=== PATIENT | female | born 1985 | race Caucasian/White ===

== ENCOUNTER 2022-04-04 11:11 | Emergency (ER) | payer BC, SELFPAY ==
[2022-04-04 11:13] VITALS: BP 129/80; PULSE 90; RESP 16; TEMP 36.3; O2SAT 100; BMI 27.4
--- NOTE | 2022-04-04 11:16 | VDLE_ITS ---
Reason For Study: Pain RIGHT GSV is normal. CFV is compressible, spontaneous, phasic, competent and demonstrates normal augmentation. FV is compressible, spontaneous, phasic, competent and demonstrates normal augmentation. POP V is compressible, spontaneous, phasic, competent and demonstrates normal augmentation. T/P Trunk is compressible. PTV is compressible. RT PerV is compressible. Procedure This is a venous duplex using B-mode, color flow and spectral Doppler. Exam performed portable in ED. A preliminary report was called and/or faxed to Modesta MESSER. VL/Venous Duplex US, Unilateral Interpretation Summary There is no evidence of right lower extremity deep vein thrombosis. Right great saphenous vein appears patent and compressible segmentally. Ordering Physician: Binh Porter Performed By: Shilpi Elizabeth RVT
--- NOTE | 2022-04-04 11:22 | ED.VIS.LOWEX ---
HPI History of Present Illness HPI Narrative: Presents with pain in her right calf that began this morning. Patient states she woke up and noticed pain in her calf. Patient states it has been constant throughout the day today. Patient describes her pain as burning. Patient states it is worse with walking and better with rest. Patient denies any paresthesias or weakness. Patient denies any trauma or injury. Patient has a history of varicose veins and is concerned over possible blood clot. Chief Complaint: Other, Pain/Inj Informant: patient Onset/Context/Timing Onset: Today Context: Sudden Onset Timing: Continuous Quality of Pain: Burning Location: Right calf Worsened by: Walking Relieved by: Rest Associated Symptoms Associated Symptoms: Negative for Parasthesia, Weakness or Loss of Funtion PFSH PFS Medical History (Updated 04/04/22 @ 12:[address] Binh Porter DO) History of prolactinoma Hypothyroidism Medical History no medical history Allergy/AdvReac Type Severity Reaction Status Date / Time No Known Allergies Allergy Verified 04/04/22 11:15 Family History no significant family his Surgical History (Updated 04/04/22 @ 11:[address] Binh Porter DO) H/O section Surgical History no surgical history Social History Smoking Status: Unknown if ever smoked ROS ROS ED Constitutional Constitutional ED: Denies chills or fever(s) Eyes Eyes: Denies blurry vision or change in vision ENT ENT ED: Denies rhinorrhea or sore throat Cardiovascular Cardiovascular: Denies chest pain or palpitations Respiratory/Chest Respiratory/Chest: Denies cough or dyspnea Gastrointestinal Gastrointestinal: Denies nausea or vomiting Genitourinary Genitourinary ED: Denies dysuria or hematuria Musculoskeletal Musculoskeletal: Reports neck pain; Denies back pain Integumentary Reports rash; Denies abscess Neurologic Neurologic: Denies headache(s) or weakness Allergic/Immunologic Allergic/Immunologic ED: Denies mouth swelling or urticaria EXAM Physical Exam Const Vital Signs: 04/04/22 11:13 Temperature 97.4 F L Temperature Source Temporal Pulse Rate 90 Respiratory Rate 16 Blood Pressure 129/80 H Blood Pressure Mean 96 Pulse Ox 100 Oxygen Delivery Method Room Air Positive well nourished and well developed General Appearance ED: well developed and NAD HEENT Reports moist mucous membranes Neck full ROM and supple Extremity Extremity Narrative: There is mild tenderness over the right lower calf. There is some mild edema. There is no ecchymosis. There are some varicose veins noted anteriorly. There is no tenderness over this area. Pedal pulses are equal bilaterally. Sensation was intact to light touch in all digits. Capillary refill was less than 2 seconds in all digits. There is full range of motion. There is no laxity appreciated in the ankle or knee. Neuro oriented x3, CN's II-XII intact bilaterally, moves all extremities and no sensory deficits noted Sensorium / Orientation: alert Motor Exam: strength 5/5 throughout MDM MDM MDM Narrative Medical decision making narrative: Venous duplex of the right lower extremity was obtained. There is no evidence of DVT. Patient was advised of her findings. Patient was instructed to ice and elevate the right lower leg. Patient was instructed to take Tylenol or ibuprofen as needed for pain. I do not feel she needs any prescription analgesics at this point. Patient understands and is agreeable with the plan. All questions were answered. Discharge Plan Triage Chief Complaint: Other, Pain/Inj Other Complaint: Lower Extremity Injury ED Provider: Binh Porter Dx/Rx/DC Orders Clinical Impression: Strain of right calf muscle Instructions: ED Muscle Strain, Extremity Disposition Disposition: Home, Self Care
--- NOTE | 2022-04-04 11:46 | ED.RN ---
PER CARE ATTENDANT. NEGATIVE FOR BLOOD CLOT
== END 2022-04-04 12:18 | disposition home or self-care (01) ==
PROVIDERS: Emergency Provider Emergency Medicine; Visit Provider Emergency Medicine
DX: S86.111A Strain of other muscle(s) and tendon(s) of posterior muscle group at lower leg level, right leg, initial encounter (principal); M79.604 Pain in right leg; X58.XXXA Exposure to other specified factors, initial encounter
CPT/HCPCS: 93971; 99282

== ENCOUNTER → 2022-07-27 | Outpatient (CLI) | payer BC, SELFPAY ==
[2022-07-27 14:16] LABS: CRP, High Sensitivity Cardiac 0.68 mg/L; Rheumatoid Factor < 10.0 IU/mL (<15); Thyroid Stim Hormone (TSH) 1.59 uIU/mL (0.358-3.74)
[2022-07-27 14:17] LABS: Erythrocyte Sedimentation Rate 7 mm/hr (0-30)
[2022-07-29 13:07] LABS: ANTINUCLEAR ANTIBODIES DIRECT Negative (Negative)
== END | disposition home or self-care (01) ==
PROVIDERS: PCP Physician Assistant; Referring Provider Physician Assistant; Visit Provider Physician Assistant
DX: E03.8 Other specified hypothyroidism (principal); M25.50 Pain in unspecified joint
CPT/HCPCS: 36415; 84443; 85652; 86038; 86141; 86225; 86235; 86431

== ENCOUNTER 2022-08-26 17:00 | Outpatient (RCR) | payer BC, SELFPAY ==
--- NOTE | 2022-07-22 18:44 | HP.PTEVAL_ITS ---
Patient's Visit Information DALLAS FARIAS is a 37 year old F referred to Physical Therapy by LLOYD Ramon with a diagnosis of R PF syndrome. Date of Evaluation: 07/22/22 Physical Therapist: Binh Damon, DPT, OCS, CSCS - Visit Plan Frequency: 1-2x /Week Duration: 4-6 Weeks Plan: 1-2x/week for 4-6 weeks, start weekly to progress HEP(quad and ITB stretch and activitiy modificaiton given today). Next session give SLR abd, ext, flexion and clamshells and bridge banded if tolerates. then WB ex progression and floor trasnfer. - Subjective My joints have always popped and cracked. 6 weeks ago felt a loud pop in R knee and then was sensitive afterwards. Got some grinding that day. R knee is uncomfortable all the time. Stairs really make her worse if she overdoes it. Up is more painful then down. pain is 6/10 Comfortable sitting most of time. 1/2 out of 10 with walking. No numbness or tingly. Not weak or giving out, but has difficulty getting out of bath.Sleep is not a problem. 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 Hobbies: Is a mom of 5 yo and playing on floor is hard to get up. Basic ADLs are normal. Hard to bend R knee to put in pants. no regular ex. - Pain R knee Pain Intensity (Out of 10): 0 - Objective Walks normal without antalgia today. steps reciprocal without rail but R knee pain and cracking up with R. Trasnfers I. Squats with some R knee tightness.foot biomechanics appear normal as does posture, able to toe and heel walk without a problem. ITB and quads tight B. AROM ankles and knees WFL but R knee cracks and pops consistently with extension. Hip AROM WFL. weakness obvious in B hip abd and ext 3+ and quad 4- R and 4 L, HS and hip flexors 4/5 but opposite hip IR with resisted hip flexion. patella are jeremi but move well, almost hyupermobile. tender laterally R patella. reflexes 2/3 patella and achilles. Sensation wNL to gross light touch. - disco test, - bounce home, - varus and valgus, - ant drawer, + R patellar grind, not L. - Balance/Special Test Scores Lower Extremity Functional Score: 71 - Goals Goal 1:: I appropriate stretch adn strength HEP for PFS improviement Goal Time Frame: 4-6 Weeks Goal 2:: Up steps without pain Goal Time Frame: 4-6 Weeks Goal 3:: Pt feel 75% better in overall pain and function of knee Goal Time Frame: 4-6 Weeks Goal 4:: able to get off floor with ease on R LE Goal Time Frame: 4-6 Weeks Goal 5:: LEFFS 76 Goal Time Frame: 4-6 Weeks - Rehabilitation Potential Physical Therapy Diagnosis: R PF syndrome, itb and quad tightness and hip weakness Rehabilitation Potential: Fair - Anticipated Interventions Patient/Client Instruction: Educate patient on: Condition, Plan of Care For the Purpose of:: To decrease pain, To increase ROM, To improve nutrient delivery to tissue, To improve muscle performance and motor function, To increase tolerance to activity/condition/position Therapeutic Exercise to Include: Strength training, Flexibilty training For the Purpose of:: To decrease pain, To increase ROM, To improve nutrient delivery to tissue, To improve muscle performance and motor function Manual Therapy Techniques to Include: Mobilization, Soft tissue mobilization For the Purpose of:: To decrease pain, To increase ROM Thank you for the opportunity to evaluate your patient. For Medicare and Medicare HMO plans, please review the plan of care and approve it. It will need to be FAXED BACK to us at [phone] for Medicare purposes. For Medicare only, by signing this I certify the plan of care. Please let me know if there are questions or concerns regarding this plan of car lopez. Physician Signature: Date:
--- NOTE | 2022-08-26 17:22 | HP.PTDCSUM ---
It has been my pleasure to treat DALLAS FARIAS referred by LLOYD Ramon, with the diagnosis of R PF syndrome for a total of 4 visit(s). Discharge Date: 08/26/22 Please see the following information for a summary of their discharge status. Subjective: The sound in my jknee is getting fainter adn fainter. Did low volume of exercises for last week adn a half without issues. had to go slow due to back locking up. Picking R leg up to get dressed can still feel weak. No pain. No f/u with doctor. R knee Pain Intensity (Out of 10): 0 % Improvement: 98 Objective/Function: Walking normal without antalgia. steps reciprocal without rail easily and no pain. Transfer off floor with slight weakness at bottom of movement but no pain. Overall much better. Goal 1:: I appropriate stretch adn strength HEP for PFS improviement Goal Progress: Goal Met Goal 2:: Up steps without pain Goal Progress: Goal Met Goal 3:: Pt feel 75% better in overall pain and function of knee Goal Progress: Goal Met Goal 4:: able to get off floor with ease on R LE Goal Progress: Goal Met Goal 5:: LEFFS 76 Goal Progress: Progressing Plan: d/c to HEP Discharge Comments: Pt to continue via HEP and notify doctor if pain returns If there are questions or concerns regarding this patient's physical therapy, please feel free to call me at [phone]. Thank you for the referral of this patient. Sincerely, Binh Damon, DPT, OCS, CSCS Balance/Gait/Functional tests - Balance/Special Test Scores Lower Extremity Functional Score: 77
== END 2022-08-26 19:00 | disposition home or self-care (01) ==
LOC: PT 17:00
PROVIDERS: Referring Provider Physician Assistant; Visit Provider Physician Assistant
DX: M22.2X1 Patellofemoral disorders, right knee (principal)
CPT/HCPCS: 97110; 97161; 97164

== ENCOUNTER → 2022-10-20 | Outpatient (CLI) | payer OTHER, SELFPAY ==
--- NOTE | 2022-10-20 07:34 | ECHOD_ITS ---
Reason For Study: PVC's Procedure This was a 2D Doppler, Color Flow transthoracic echocardiogram. Exam performed in department. Left Ventricle Normal LV size. Left ventricular systolic function is normal. The estimated ejection fraction is 60 %. No regional wall motion abnormalities noted. Right Ventricle Normal RV size. Normal systolic function. Atria Normal left atrium. Normal right atrium. Mitral Valve Normal mitral valve. Tricuspid Valve Normal tricuspid valve. Mild (1+) tricuspid valve insufficiency. Pulmonary artery systolic pressure is 20 mmHg. Aortic Valve Normal aortic valve. Trisinus/trileaflet aortic valve. Pulmonic Valve Normal pulmonic valve. Great Vessels Normal aortic root. The pulmonary artery is normal size. Normal inferior vena cava. Pericardium/Pleural No pericardial effusion. MMode/2D Measurements & Calculations LVIDd: 4.3 cm IVSd: 0.82 cm Ao root diam: 2.4 cm LVIDs: 2.9 cm LVPWd: 0.79 cm RVDd: 3.4 cm FS: 31.7 % LAV(MOD-bp): 36.8 ml LVAd ap4: 28.4 cm2 LVAd ap2: 30.1 cm2 LAV(MOD-bp) Indexed: 19.6 ml/m2 LVLd ap4: 8.2 cm LVLd ap2: 8.6 cm LAV(MOD-sp2): 40.9 ml EDV(MOD-sp4): 81.3 ml EDV(MOD-sp2): 89.4 ml LAV(MOD-sp4): 31.2 ml EDV(sp4-el): 82.9 ml EDV(sp2-el): 89.7 ml LVAs ap4: 15.3 cm2 LVAs ap2: 16.7 cm2 LVLs ap4: 6.6 cm LVLs ap2: 7.3 cm ESV(MOD-sp4): 30.0 ml ESV(MOD-sp2): 33.3 ml ESV(sp4-el): 30.5 ml ESV(sp2-el): 32.7 ml EF(MOD-sp4): 63.1 % EF(MOD-sp2): 62.7 % EF(sp4-el): 63.3 % SV(MOD-sp4): 51.3 ml SV(MOD-sp2): 56.0 ml SV(sp4-el): 52.4 ml LA dimension(2D): 3.5 cm LA A4 area: 14.0 cm2 RA A4 area: 14.7 cm2 TAPSE: 2.3 cm Time Measurements MV dec time: 0.17 sec Doppler Measurements & Calculations MV E max sam: 78.9 cm/sec Lat Peak E' Sam: 14.2 cm/sec Med Peak E' Sam: 11.7 cm/sec MV A max sam: 47.8 cm/sec E/E' lat: 5.5 E/E' med: 6.7 MV E/A: 1.7 MV dec slope: 469.7 cm/sec2 Ao V2 max: 106.2 cm/sec LV V1 max: 87.0 cm/sec Ao max P.5 mmHg LV V1 max P.0 mmHg Ao V2 mean: 75.6 cm/sec LV V1 mean P.7 mmHg Ao mean P.6 mmHg LV V1 mean: 60.9 cm/sec Ao V2 VTI: 25.6 cm LV V1 VTI: 19.5 cm AV (velocity ratio): 0.76 PA V2 max: 71.9 cm/sec TR max sam: 205.7 cm/sec TR max P.9 mmHg ECHO/Echo Complete Interpretation Summary Normal LV size. Left ventricular systolic function is normal. The estimated ejection fraction is 60 %. Pulmonary artery systolic pressure is 20 mmHg. The global longitudinal strain is normal. The global longitudinal strain = -18. 7 % (normal). Ordering Physician: Josesito Kohler Referring Physician: Josesito Kohler Performed By: Ruth Miner RDCS
== END | disposition home or self-care (01) ==
LOC: CVS 07:32
PROVIDERS: PCP Physician Assistant; Referring Provider Internal Medicine Cardiovascular Disease; Visit Provider Internal Medicine Cardiovascular Disease
DX: I49.3 Ventricular premature depolarization (principal)
CPT/HCPCS: 93306

== ENCOUNTER → 2022-12-24 | Outpatient (CLI) | payer OTHER, SELFPAY ==
[2022-12-28 03:07] LABS: Chlamydia By Nucleic Acid AMP Negative (Negative); Gonococcus By Nucleic Acid AMP Negative (Negative)
[2022-12-28 16:09] LABS: HPV APTIMA, High Risk Negative (Negative)
== END | disposition home or self-care (01) ==
PROVIDERS: PCP Physician Assistant; Referring Provider Registered Nurse; Visit Provider Registered Nurse
DX: Z11.3 Encounter for screening for infections with a predominantly sexual mode of transmission (principal)
CPT/HCPCS: 87491; 87591; 87624; 88175; G0145

== ENCOUNTER → 2022-12-28 | Outpatient (CLI) | payer OTHER, SELFPAY ==
[2022-12-28 09:07] LABS: Estradiol 28.9 pg/mL; Follicle Stimulating Hormone 4.8 mIU/mL; Luteinizing Hormone 3.3 mIU/mL; Prolactin 16.3 ng/mL
[2022-12-31 11:09] LABS: 17-Hydroxyprogesterone 33 ng/dL (.)
== END | disposition home or self-care (01) ==
PROVIDERS: PCP Physician Assistant; Referring Provider Registered Nurse; Visit Provider Registered Nurse
DX: N92.0 Excessive and frequent menstruation with regular cycle (principal); Z86.018 Personal history of other benign neoplasm
CPT/HCPCS: 36415; 82670; 83001; 83002; 83498; 84146

== ENCOUNTER → 2023-01-04 | Outpatient (CLI) | payer OTHER, SELFPAY ==
[2023-01-04 15:14] LABS: EXAGEN MAILED SPECIMEN
[2023-01-04 17:37] LABS: Absolute Lymphocyte Count 2.25 X10^3/uL (0.83-4.51); Absolute Neutrophil Count 4.8 X10^3/uL (2.0-7.7); Basophil# 0.06 X10^3/uL; Basophil% 0.8 % (0-1); Eosinophils% 2.5 % (0-5); Hematocrit 40.2 % (37-47); Hemoglobin 12.9 g/dL (12.0-15.0); Lymphocyte # 2.25 X10^3/ul (0.83-4.51); Lymphocyte % 28.2 % (19-41); Mean Corp Hgb Conc 32.1 g/dL (32-36); Mean Corpuscular Hgb 32.6 pg (27.0-32.0); Mean Corpuscular Volume 101.5 fL (81-99); Monocyte# 0.61 X10^3/uL; Monocyte% 7.6 % (0-10); NRBC Flagged by Analyzer 0 % (0-5); Neutrophil # 4.84 X10^3/uL (2.7-7.7); Neutrophil % 60.5 % (47-70); Platelet Count 279 K/mm3 (150-450); RBC Distribution Width CV 12.9 % (11.6-14.6); RBC Distribution Width SD 48.1 fl (35.1-43.9); Red Blood Count 3.96 M/mm3 (4.2-5.4)
[2023-01-04 17:43] LABS: Color, Urine Yellow (Yellow); Glucose, Dipstick Normal (Normal); Ketone-Dipstick Negative (Negative); Leukocyte Esterase-Dipstick 100 /ul (Negative); Nitrite-Dipstick Negative (Negative); Occult Blood-Urine 25 /ul (Negative); Protein-Dipstick Negative (Negative); Urine Bilirubin Dipstick Negative (Negative); Urine Clarity Clear (Clear); Urine Urobilinogen Normal (Normal); Urine pH 6.5 (5.0 - 8.0)
[2023-01-04 17:54] LABS: Protein, Urine (Random) 11.6 mg/dL (<11.9); Protein:Creat Ratio 89 mg/g CRE (0-200)
[2023-01-04 18:14] LABS: AST(SGOT) 19 U/L (15-37); Alanine Aminotransfer ALT/SGPT 28 U/L (13-56); Albumin, Serum 3.7 g/dL (3.2-5.0); Alkaline Phosphatase 60 U/L (45-117); Anion Gap 7 (5-15); BUN 16 mg/dL (7-18); BUN/Creat Ratio 20.2 RATIO (10-20); Chloride 106 mmol/L (98-107); Creatinine, Serum 0.79 mg/dL (0.55-1.02); EST Glomerular Filtration Rate 87 mL/min (>60); Est Glom Filt Rate - Afr Amer 105 mL/min (>60); Globulin 3.8 g/dL (2.2-4.2); Glucose 96 mg/dL (74-106); Potassium 3.8 mmol/L (3.5-5.1); Protein, Total 7.5 g/dL (6.4-8.2); Sodium Level 138 mmol/L (136-145)
[2023-01-04 18:43] LABS: Hepatitis B Surface Antibody Reactive; Hepatitis B Surface Antigen Non-Reactive (Nonreactive); Hepatitis C Antibody Non-Reactive (Nonreactive)
[2023-01-06 16:10] LABS: Deamidated Gliadin IgA 9 units (0-19); Deamidated Gliadin IgG 2 units (0-19); Endomysial Antibody IgA Negative (Negative); Immunoglobulin A 228 mg/dL (87-352); t-Transglutaminase IgA <2 U/mL (0-3)
== END | disposition home or self-care (01) ==
LOC: MTLAB 14:12
PROVIDERS: PCP Physician Assistant; Referring Provider Internal Medicine Rheumatology; Visit Provider Internal Medicine Rheumatology
DX: M06.4 Inflammatory polyarthropathy (principal); E03.9 Hypothyroidism, unspecified; R51.9 Headache, unspecified; R76.8 Other specified abnormal immunological findings in serum
CPT/HCPCS: 36415; 80053; 81002; 82570; 82784; 83516; 84156; 85025; 86255; 86706; 86803; 87340

== ENCOUNTER 2023-02-26 14:48 | Emergency (ER) | payer OTHER, SELFPAY ==
[2023-02-26 14:50] VITALS: BP 123/86; PULSE 92; RESP 14; TEMP 36.8; O2SAT 98; BMI 31.1
--- NOTE | 2023-02-26 15:04 | EDS_ITS ---
HPI History of Present Illness Chief Complaint: Dizziness Informant: patient Onset/Context/Timing Onset: Today Timing: Continuous Maximum Severity: Mild Narrative Narrative: 37-year-old female history of rheumatoid arthritis at the end of January she was started on Plaquenil which she has now been on about 11 days. Said last night she had a migraine headache which is not uncommon for her. Today she just feels shaky and said she just feels like she is in a fog. Denies any headache. She has had some mild nausea no vomiting mild loose stools today. No fever. No dysuria. No recent head trauma. She denies any chest or abdominal pain. No shortness of breath. She had COVID several weeks ago. Prior similar symptoms: No Recent Illness/Hospitalization: No PFSH PFSH Medical History Allergic dermatitis Depression History of prolactinoma Hypothyroidism IBS (irritable bowel syndrome) Palpitations Polyarthralgia PVC's (premature ventricular contractions) Weight gain Home Medications apple cider vinegar 300 mg tablet mg PO 07/12/22 [History Last Taken Unknown] cholecalciferol (vitamin D3) 25 mcg (1,000 unit) capsule 25 mcg PO DAILY 07/12/22 [History Last Taken Unknown] folic acid 1 mg tablet 1 mg PO DAILY 07/12/22 [History Last Taken Unknown] levothyroxine 25 mcg tablet ea PO 07/12/22 [History Last Taken Unknown] vitamin B complex (B Complex-Vitamin B12 tablet) 1 tab PO DAILY 07/12/22 [History Last Taken Unknown] ketoconazole 2 % shampoo topical .q week 10/13/22 [History Last Taken Unknown] melatonin 3 mg capsule 3 mg PO HS PRN 10/13/22 [History Last Taken Unknown] azithromycin 250 mg tablet (Zithromax Z-Keon) See Rx Instructions PO .COMPLEX #6 tabs 02/09/23 [Rx Last Taken Unknown] Allergy/AdvReac Type Severity Reaction Status Date / Time gluten Allergy Abd Verified 02/26/23 14:49 cramps/diarrhea Family History Mother Hearing loss Grandmother Diabetes Colon cancer PVC (premature ventricular contraction) Grandfather Diabetes Crohn's disease Heart disease Grandmother Alzheimers disease Surgical History H/O section Social History Smoking Status: Former smoker how long ago did patient quit smokin alcohol intake: current substance use type: does not use caffeine: No frequency: daily ROS ROS ED ROS Narrative Loose stools. Nausea. Review of Systems ROS Unobtainable: Denies due to encephalopathy Constitutional Constitutional ED: Denies chills or fever(s) Eyes Eyes: Denies blurry vision ENT ENT ED: Denies ear pain, rhinorrhea or sore throat Cardiovascular Cardiovascular: Denies chest pain or palpitations Respiratory/Chest Respiratory/Chest: Denies cough or dyspnea Gastrointestinal Gastrointestinal: Reports diarrhea and nausea; Denies abdominal pain, constipation, melena or vomiting Genitourinary Genitourinary ED: Denies dysuria or hematuria Musculoskeletal Musculoskeletal: Denies arthralgias, back pain, myalgias or neck pain Integumentary Denies abscess or Abrasions Neurologic Neurologic: Reports headache(s) Psychiatric Psychiatric: Denies anxiety or depression Endocrine Endocrinology: Denies cold intolerance Hematologic/Lymphatic Hematologic/Lymphatic: Reports none Allergic/Immunologic Allergic/Immunologic ED: Denies mouth swelling, tongue swelling or urticaria EXAM Physical Exam Narrative Exam Narrative: Well-appearing 37-year-old female. Vital signs stable afebrile. Pulse ox 98% on room air no hypoxia. H EENT exam unremarkable. Moist extremities. Pupils round react light his motions are intact. No signs of trauma. No facial droop. Normal speech. Neck nontender no meningismus. No lymphadenopathy. Lungs darion ar to auscultation bilaterally. Heart regular rhythm no murmur rate about 90. Chest wall and ribs nontender. Abdomen soft nontender. Back nontender. Moving all 4 extremities. 5-5 montessori teacher strength. Dorsi plantarflexion intact. Neurologic exam normal. NIH is 0. Fingertip to nose within normal limits. No focal motor or sensory deficits. She is awake alert. Answering questions and following commands. She knows the month and year. She knows where she is at. Const Vital Signs: 02/26/23 14:50 02/26/23 14:49 Temperature 98.3 F Temperature Source Temporal Pulse Rate 92 Respiratory Rate 14 Respiratory Effort Normal Non-Labored Respiratory Pattern Normal Blood Pressure 123/86 H Blood Pressure Mean 98 Pulse Ox 98 Oxygen Delivery Method Room Air Positive well nourished and well developed; Negative for cachectic, contractures or unkempt General Appearance ED: well developed and NAD; Negative for unkempt, cachectic, contractures, cyanotic, diaphoretic or pallor Nutritional Appearance: Negative for cachectic HEENT Reports moist mucous membranes; Denies dry mucous membranes or other Negative for trauma, tenderness or other Mouth ED: No dry mucous membranes Mouth: No dry mucous membranes Eyes EOMs intact bilaterally General Eye ED: Negative for pale conjunctiva, scleral icterus or other Neck no lymphadenopathy, supple and no JVD General: Negative for tenderness Lymph Lymphatic: Negative for other Chest Wall inspection of chest normal and palpation of chest normal Chest: Negative for other Resp normal respiratory effort and clear to auscultation bilaterally Effort and Inspection: Negative for retractions Auscultation: Negative for rales, rhonchi or wheezes Cardio regular rate, regular rhythm, S1 normal heart sound, S2 normal heart sound and no murmurs Palpation: Negative for palpable S3 Rate: Negative for bradycardia or tachycardic Rhythm: Negative for abnormal rhythm GI normal to inspection, nondistended, normoactive bowel sounds, non-tender, non- distended and no masses Inspection: Negative for abdominal distention Auscultation: normoactive bowel sounds Palpation: soft; Negative for tender or guarding Bladder / Kidney Exam: No other Back/Spine no CVA tenderness General Back: Negative for CVA tenderness Cervical Spine: Negative for cervical spine tenderness Thoracic Spine / Upper Back: Negative for thoracic spinal tenderness or paraspinal muscle tenderness Lumbar Spine / Lower Back: Negative for lumbar spinal tenderness Extremity normal to inspection General Extremety ED: Negative for edema, tenderness or other findings General Extremity: Negative for edema or other findings Neuro oriented x3 and CN's II-XII intact bilaterally Sensorium / Orientation: alert; Negative for orientation impaired, lethargic or stuporous Motor Exam: strength 5/5 throughout Psych mental status grossly normal Appearance: Negative for unkempt Attitude: No agitated Mood & Affect: Negative for depressed, anxious or tearful Skin no rashes or lesions noted, no wounds and skin turgor normal General Skin Exam: elasticity normal; Negative for jaundice or pallor Lesions: No lesion noted Rashes: No rashes noted Trauma: Negative for abrasion Wounds: Negative for wounds noted MDM MDM MDM Narrative Medical decision making narrative: 37-year-old female who said she does not feel herself. She is concerned it might be secondary to being started on Plaquenil about 11 days ago. Her exam is normal. Her neurologic exam was normal. She did request that I obtain lab work including liver function test. She did not want any imaging. Clinically I do not think she needs any imaging. Repeat exam patient doing well at 4:16 PM. We discussed her labs. She will be discharged home. Outpatient follow-up. History & Record Review Discussion w/independent historian: Patient Additional record(s) reviewed:: Prior inpatient record, Prior outpatient record, Prior ED visit and Prior labs Lab Data Attestation: I reviewed the patient's lab results. Lab results narrative: CBC shows normal white count 8.5. Normal H&H of 12.9 and 39.3. Platelets 283. CMP shows gap of 2. Normal BUN of 16 creatinine 0.98. Glucose 104. Liver enzymes normal. Labs: Laboratory Results - last 24 hr 02/26/23 15:17 WBC 8.5 RBC 4.04 L Hgb 12.9 Hct 39.3 MCV 97.3 MCH 31.9 MCHC 32.8 RDW Std Deviation 46.5 H RDW Coeff of Ada 13.0 Plt Count 283 MPV 11.3 Immature Gran % (Auto) 0.500 Neut % (Auto) 64.4 Lymph % (Auto) 24.3 Parker % (Auto) 7.5 Eos % (Auto) 2.4 Baso % (Auto) 0.9 Absolute Neuts (auto) 5.5 Absolute Lymphs (auto) 2.06 Nucleated RBC % 0 Sodium 137 Potassium 4.8 Chloride 109 H Carbon Dioxide 26.0 Anion Gap 2 L BUN 16 Creatinine 0.98 Estim Creat Clear Calc 69.19 Est GFR (MDRD) Af Amer 83 Est GFR (MDRD) Non-Af 68 BUN/Creatinine Ratio 16.3 Glucose 104 Calcium 8.3 L Total Bilirubin 0.50 AST 29 ALT 23 Alkaline Phosphatase 58 Total Protein 7.3 Albumin 3.6 Globulin 3.7 Albumin/Globulin Ratio 1.0 Discharge Plan Triage Chief Complaint: Dizziness ED Provider: Hector Salamanca Dx/Rx/DC Orders Clinical Impression: Malaise Prescriptions: No Action levothyroxine 25 mcg tablet PO Patient Comments: TAKE 1 TABLET BY MOUTH EVERY OTHER DAY cholecalciferol (vitamin D3) 25 mcg (1,000 unit) capsule 25 mcg PO DAILY folic acid 1 mg tablet 1 mg PO DAILY vitamin B complex [B Complex-Vitamin B12] Tablet 1 tab PO DAILY apple cider vinegar 300 mg tablet PO ketoconazole 2 % shampoo topical .q week melatonin 3 mg capsule 3 mg PO HS PRN azithromycin [Zithromax Z-Keon] 250 mg tablet See Rx Instructions PO .COMPLEX Qty: 6 0RF Rx Instructions: For 250 mg dose pack: take 500 mg today (day 1), then 250 mg for 4 days (days 2-5) PO Primary Care Provider: Walter Hermosillo Referrals: Walter Hermosillo PA [Primary Care Provider] - 1 Week if not improving Activity Restrictions/Additional Instructions: Follow-up with your primary care physician. Your labs including CBC, chemistries and liver enzymes today were all normal. Disposition Disposition: Home, Self Care
[2023-02-26 15:36] LABS: Absolute Lymphocyte Count 2.06 X10^3/uL (0.83-4.51); Absolute Neutrophil Count 5.5 X10^3/uL (2.0-7.7); Basophil# 0.08 X10^3/uL; Basophil% 0.9 % (0-1); Eosinophils% 2.4 % (0-5); Hematocrit 39.3 % (37-47); Hemoglobin 12.9 g/dL (12.0-15.0); Lymphocyte # 2.06 X10^3/ul (0.83-4.51); Lymphocyte % 24.3 % (19-41); Mean Corp Hgb Conc 32.8 g/dL (32-36); Mean Corpuscular Hgb 31.9 pg (27.0-32.0); Mean Corpuscular Volume 97.3 fL (81-99); Mean Platelet Vol. 11.3 fl (6.2-12.0); Monocyte# 0.64 X10^3/uL; Monocyte% 7.5 % (0-10); NRBC Flagged by Analyzer 0 % (0-5); Neutrophil # 5.47 X10^3/uL (2.7-7.7); Neutrophil % 64.4 % (47-70); Platelet Count 283 K/mm3 (150-450); RBC Distribution Width SD 46.5 fl (35.1-43.9); Red Blood Count 4.04 M/mm3 (4.2-5.4); White Blood Count 8.5 K/mm3 (4.4-11.0)
[2023-02-26 16:09] LABS: AST(SGOT) 29 U/L (15-37); Alanine Aminotransfer ALT/SGPT 23 U/L (13-56); Albumin, Serum 3.6 g/dL (3.2-5.0); Alkaline Phosphatase 58 U/L (45-117); Anion Gap 2 (5-15); BUN 16 mg/dL (7-18); BUN/Creat Ratio 16.3 RATIO (10-20); Calcium,Total 8.3 mg/dL (8.5-10.1); Chloride 109 mmol/L (98-107); Creatinine, Serum 0.98 mg/dL (0.55-1.02); EST Glomerular Filtration Rate 68 mL/min (>60); Est Glom Filt Rate - Afr Amer 83 mL/min (>60); Estimated Creatinine Clearance 69.19 ml/min; Globulin 3.7 g/dL (2.2-4.2); Glucose 104 mg/dL (74-106); Potassium 4.8 mmol/L (3.5-5.1); Protein, Total 7.3 g/dL (6.4-8.2); Sodium Level 137 mmol/L (136-145)
== END 2023-02-26 16:22 | disposition home or self-care (01) ==
PROVIDERS: Emergency Provider Emergency Medicine; PCP Physician Assistant; Visit Provider Emergency Medicine
DX: R53.81 Other malaise (principal); Z87.891 Personal history of nicotine dependence; E03.9 Hypothyroidism, unspecified; Z79.899 Other long term (current) drug therapy
CPT/HCPCS: 80053; 85025; 99282; A4216

== ENCOUNTER → 2023-03-04 | Outpatient (CLI) | payer OTHER, SELFPAY ==
--- NOTE | 2023-03-04 15:40 | MRI_ITS ---
EXAM: MR HEAD WITHOUT AND WITH INTRAVENOUS CONTRAST CLINICAL INDICATION: BENIGN NEOPLASM,ROBERSON, hx prolactinoma TECHNIQUE: Multiplanar and multisequence MR images of the brain were obtained without and with intravenous contrast. Magnetic field strength 1.5 T. CONTRAST: 17 cc of Clariscan IV. COMPARISON: No relevant prior studies available. FINDINGS: BRAIN AND EXTRA-AXIAL SPACES: Unremarkable. No intra- or extra-axial hemorrhage. No evidence of acute infarct. No intracranial mass or mass effect. There is preservation of the ray/white matter interface. Posterior fossa structures are unremarkable. Ventricles are appropriate for age. No hydrocephalus. Basal cisterns are patent. SELLA: Unremarkable. Normal sella turcica, pituitary gland, infundibular stalk, optic chiasm and hypothalamus. AUDITORY SYSTEM: Unremarkable. The internal auditory canals are patent. BONES/JOINTS: Unremarkable. No discrete lytic or blastic abnormalities. SINUSES: Unremarkable as visualized. Clear. MASTOID AIR CELLS: Unremarkable as visualized. Clear. ORBITS: Unremarkable as visualized. Both globes, extraocular muscles, optic nerves and retrobulbar fat appear unremarkable. VASCULATURE: Unremarkable as visualized. Normal flow voids in the major intracranial circulation. MRI/Brain W/WO Contrast IMPRESSION: Negative MRI brain without and with intravenous contrast. Electronically Signed: Juan Antonio Fried MD at 22:57 EST ,
== END | disposition home or self-care (01) ==
LOC: MRI 15:19
PROVIDERS: PCP Physician Assistant; Referring Provider Physician Assistant; Visit Provider Physician Assistant
DX: R51.9 Headache, unspecified (principal); Z86.018 Personal history of other benign neoplasm
CPT/HCPCS: 70553; A9575

== ENCOUNTER → 2023-04-13 | Outpatient (CLI) | payer OTHER, SELFPAY ==
--- OUTSIDE RECORDS SUMMARY | 2023-04-13 09:12 | XMS RPT_ITS | CCD ---
Author Name Unknown Address [address] [place] [address] Organization [facility] Care Team Providers Care Supervisor Home Economics Name Role Phone Required, No Pcp Unavailable Unavailable Miles Joseph Unavailable Unavailabl e Simon Hermosillo Unavailable Unavailable Unavailable Simon Hermosillo PA-C Primary Care Provider Unavailable Unavailable SUMIT, PAC SIMON ATKINS Primary Care Unavail able NEWBILL, PAC SIMON ATKINS Referring Unavail able JEFFY REYNOSO Attending Unavai lable NEWKRAIG, PAC SIMON ATKINS Referring Unavail able Dr. Pat Hickman Attending Unavailable NEWBILL, PAC SIMON ATKINS Primary Care Unavail able NEWBILL, PAC SIMON ATKINS Referring Unavail able Hoang Wang Attending Unavailable TERRELLL, PAC SIMON ATKINS Primary Care Unavail able NEWBILL, PAC SIMON ATKINS Referring Unavail able NEWBILL, PAC SIMON ATKINS Attending Unavail able NEWBILL, PAC SIMON ATKINS Primary Care Unavail able NEWBILL, PAC SIMON ATKINS Primary Care Unavail able NEWBILL, PAC SIMON ATKINS Referring Unavail able NEWBILL, PAC SIMON ATKINS Attending Unavail able Newbill Simon CONNOLLY Primary Care Provider [phone] SIMON HERMOSILLO Primary Care Unavailable SIMON HERMOSILLO Primary Care Unavailable NEWBILL, PAC SIMON ATKINS Primary Care Unavail able NEWBILL, PAC SIMON ATKINS Attending Unavail able NEWBILL, PAC SIMON ATKINS Primary Care Unavail able NEWBILL, PAC SIMON ATKINS Attending Unavail able NEWBILL, MARY ATKINS Referring Unavail able SUMIT, MARY ATKINS Primary Care Unavail able SUMIT, MARY ATKINS Attending Unavail able [place] [employer] RES[employer] SPECIALIST, Belinda Ontiveros Unavailable ERASMOKRAIG SIMON Flakito Attending Unavailable SUMIT SIMON Flakito Primary Care Unavailable SUMIT SIMON M Attending Unavailable SUMIT SIMON M Primary Care Unavailable SUMIT SIMON M Attending Unavailable FARRUKH HERMOSILLON M Primary Care Unavailable Allergies Allergy Classification Reported Allergen(s) Allergy Type Date of Onset Reaction(s) Facility (16 sources) glutenin; Translations: [GLUTEN] Allergy to substance (finding) 07-26-2022 [facility] Repository (2 sources) Wheat gluten extract Drug Allergy 07-26-2022 Unknown [facility] Medications Current Medications Medication Drug Class(es) Dates Sig (Normalized) Sig (Original) acetaminophen 325 mg / butalbital 50 mg / caffeine 40 mg oral tablet (1 source) Barbiturate, Central Nervous System Stimulant, Methylxanthine Start: 02-28-2023 take 1 tablet by mouth every four hours for headache butalbital-acetamin ophen-caff 50-325-40 mg tablet Indications: History of prolactinoma , Acute intractable headache, unspecified headache type Take 1 tablet by mouth every 4 hours if needed for headaches. Use no more than 5/day, 10/week, 30/month. 30 tablet 0 02/28/2023 Active b complex vitamins capsule (2 sources) Start: 09-30-2021 b complex vitamins capsule Take by mouth. 0 09/30/2021 Active B complex with C-folic acid (Nephronex) 900 mcg/5 mL liquid (1 source) Start: 03-21-2021 B complex with C-folic acid (Nephronex) 900 mcg/5 mL liquid cholecalciferol 0.025 mg oral tablet (20 sources) Vitamin D Start: 09-30-2021 take 1 tablet by mouth once daily cholecalciferol (Vitamin D-3) 25 MCG (1000 UT) tablet Take 1 tablet (25 mcg) by mouth once daily. 0 09/30/2021 Active Completed/Discontinued Medications Medication Drug Class(es) Dates Sig (Normalized) Sig (Original) B Complex Vitamins (w/ FA) Oral Capsule (17 sources) Start: 09-30-2021 B Complex Vitamins (w/ FA) Oral Capsule Quantity: 0 Refills: 0 Ordered: 30-Sep-2021 Fliigilbert GEORGES Pat Start : 30-Sep-2021 Active B Complex-Vitamin C-Folic Acid 900 mcg/5 mL liqd (1 source) Start: 03-21-2021 B Complex-Vitamin C-Folic Acid 900 mcg/5 mL liqd hydrOXYzine hydrochloride 25 mg oral tablet (9 sources) Antihistamine Start: 09-30-2021 take 1 tablet by mouth every six hours as needed for anxiety hydrOXYzine HCl - 25 MG Oral Tablet take 1 tab every 6 hours as needed for anxiety/insomnia/n ausea Quantity: 30 Refills: 2 Ordered: 30-Sep-2021 Simon Hermosillo PA-C Start : 30-Sep-2021 Active loratadine 10 mg oral tablet (1 source) Start: 08-02-2012 take 1 tablet by mouth once daily loratadine (CLARITIN) 10 mg tablet Take 1 tablet by mouth once daily. 0 08/02/2012 Active Problems Active Problems Problem Classification Problem Date Documented Date Episodic/Chronic Abdominal pain (1 source) Epigastric pain; Translations: [Epigastric pain] Episodic Allergic reactions (4 sources) Eczema; Translations: [Contact dermatitis and other eczema, unspecified cause] Episodic Anxiety disorders (19 sources) Mixed anxiety and depressive disorder; Translations: [Anxiety state, unspecified] Onset: 07-02-2022 07-02-2022 Chronic Cancer; other and unspecified primary (1 source) History of prolactinoma; Translations: [Personal history of other benign neoplasm] 02-28-2023 Episodic Cancer; other and unspecified primary (2 sources) Personal history of other benign neoplasm; Translations: [Personal history of other benign neoplasm] Onset: 02-28-2023 Episodic Genitourinary symptoms and ill-defined conditions (3 sources) Dysuria; Translations: [Dysuria] Episodic Headache; including migraine (1 source) Acute headache; Translations: [Acute intractable headache, unspecified headache type] 02-28-2023 Episodic Headache; including migraine (2 sources) Headache; including migraine; Translations: [Headache, unspecified] Onset: 02-28-2023 Menstrual disorders (20 sources) Abnormal menstrual cycle; Translations: [Unspecified disorders of menstruation and other abnormal bleeding from female genital tract] Onset: 07-02-2022 Resolved: 07-02-2022 07-02-2022 Chronic Miscellaneous mental health disorders (19 sources) Psychophysiologic insomnia; Translations: [Persistent disorder of initiating or maintaining sleep] Onset: 07-02-2022 07-02-2022 Chronic Other complications of ; puerperium affecting management of mother (14 sources) Deliveries by ; Translations: [ delivery, without mention of indication, unspecified as to episode of care or not applicable] Episodic Past or Other Problems Problem Classification Problem Date Documented Date Episodic/Chronic Biliary tract disease (19 sources) Chronic cholecystitis; Translations: [Chronic cholecystitis] Onset: 07-02-2022 Resolved: 07-02-2022 07-02-2022 Episodic Cardiac dysrhythmias (20 sources) Tachycardia; Translations: [Tachycardia, unspecified] Onset: 07-02-2022 Resolved: 07-02-2022 09-27-2021 Episodic Other and unspecified benign neoplasm (19 sources) Prolactinoma; 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] Onset: 07-02-2022 Resolved: 07-02-2022 07-02-2022 Episodic Other non-traumatic joint disorders (4 sources) Pain in unspecified joint; Translations: [Pain in unspecified joint] Onset: 07-26-2022 Episodic Other nutritional; endocrine; and metabolic disorders (2 sources) Abnormal weight gain; Translations: [Abnormal weight gain] Onset: 07-26-2022 Episodic Other skin disorders (19 sources) Loss of hair; Translations: [Alopecia, unspecified] Onset: 07-02-2022 Resolved: 07-02-2022 07-02-2022 Episodic Unclassified (14 sources) Finding of menstrual bleeding; Translations: [Menstruation] Results Test Name Value Interpretation Reference Range Facil ity Vital Signs Date Time Vital Sign Value Performing Clinician Facility 02-28-2023 14:34-0500 Body height 163.8 cm Simon Hermosillo PA-C Work Phone: [facility] 02-28-2023 14:34-0500 Body mass index (BMI) [Ratio] 30.94 kg/m2 Simon Garciabill PA-C Work Phone: [facility] 02-28-2023 14:34-0500 Body weight 83.05 kg Simon Newbill PA-C Work Phone: [facility] 02-28-2023 14:34-0500 Diastolic blood pressure 81 mm[Hg] Simon Newbill PA-C Work Phone: [facility] 02-28-2023 14:34-0500 Heart rate 69 /min Simon Newbill PA-C Work Phone: 7(515)243-217857 [address] 02-28-2023 14:34-0500 Systolic blood pressure 117 mm[Hg] Simon Newbill PA-C Work Phone: 3(046)[phone] [address] 07-26-2022 16:25-0400 Body height 165.1 cm Simon Newbill PA-C Work Phone: 6(477)[phone] [place] [address] 07-26-2022 16:25-0400 Body mass index (BMI) [Ratio] 29.95 kg/m2 Simon Newbill PA-C Work Phone: 1(559)433-723058 [place] [address] 07-26-2022 16:25-0400 Body weight 81.65 kg Simon Newbill PA-C Work Phone: 2(514)914-912158 [place] [address] 07-26-2022 16:25-0400 Diastolic blood pressure 75 mm[Hg] Simon Newbill PA-C Work Phone: [facility] 07-26-2022 16:25-0400 Heart rate 87 /min Simon Newbill PA-C Work Phone: 8([phone])[phone] [place] [address] 07-26-2022 16:25-0400 SaO2% (BldA) [Mass fraction] 98 % Simon Newbill PA-C Work Phone: 3(305)[phone] [place] [address] 07-26-2022 16:25-0400 Systolic blood pressure 116 mm[Hg] Simon Newbill PA-C Work Phone: [facility] 03-25-2022 16:22-0500 Body height 165.1 cm Simon Flakito Newbill Work Phone: [facility] Work Phone: 03-25-2022 16:22-0500 Body mass index (BMI) [Ratio] 28.04 kg/m2 Simon Flakito Newbill Work Phone: [facility] Work Phone: 03-25-2022 16:22-0500 Body surface area Derived from formula 1.84 m2 Simon Flakito Newbill Work Phone: [facility] Work Phone: 03-25-2022 16:22-0500 Body weight 76.43 kg Simon Flakito Newbill Work Phone: [facility] Work Phone: 03-25-2022 16:22-0500 Diastolic blood pressure 82 mm[Hg] Simon Flakito Newbill Work Phone: [facility] Work Phone: 03-25-2022 16:22-0500 Heart rate 70 /min Simon Flakito Newbill Work Phone: [facility] Work Phone: 03-25-2022 16:22-0500 SaO2% (BldA) [Mass fraction] 99 % Simon Flakito Newbill Work Phone: [facility] Work Phone: 03-25-2022 16:22-0500 Systolic blood pressure 106 mm[Hg] Simon M Newbill Work Phone: [facility] Work Phone: 11-19-2021 10:41-0400 Body height 165.1 cm Ingrid Perez MD Work Phone: [facility] 11-19-2021 10:41-0400 Body temperature 98.71 [degF] Ingrid Perez MD Work Phone: [facility] 11-19-2021 10:41-0400 Body weight 69.4 kg Ingrid Perez MD Work Phone: [facility] 11-19-2021 10:41-0400 Diastolic blood pressure 77 mm[Hg] Ingrid Perez MD Work Phone: [facility] 11-19-2021 10:41-0400 Heart rate 77 /min Ingrid Perez MD Work Phone: [facility] 11-19-2021 10:41-0400 SaO2% (BldA) [Mass fraction] 98 % Ingrid Perez MD Work Phone: [facility] 11-19-2021 10:41-0400 Systolic blood pressure 119 mm[Hg] Ingrid Perez MD Work Phone: [facility] 11-05-2021 13:37-0400 Body height 165.1 cm Simon Hermosillo Work Phone: [facility] Work Phone: 11-05-2021 13:37-0400 Body mass index (BMI) [Ratio] 25.15 kg/m2 Simon Hermosillo Work Phone: [facility] Work Phone: 11-05-2021 13:37-0400 Body surface area Derived from formula 1.76 m2 Simon Chakrabortyl Work Phone: [facility] Work Phone: 11-05-2021 13:37-0400 Body weight 68.55 kg Simon Chakrabortyl Work Phone: [facility] Work Phone: 11-05-2021 13:37-0400 Diastolic blood pressure 72 mm[Hg] Simon Chakrabortyl Work Phone: [facility] Work Phone: 11-05-2021 13:37-0400 Heart rate 80 /min Simon Flakito Newbill Work Phone: [facility] Work Phone: 11-05-2021 13:37-0400 Systolic blood pressure 126 mm[Hg] Simon M Newbill Work Phone: [facility] Work Phone: 10-07-2021 14:50-0400 Body height 165.1 cm Simon M Newbill Work Phone: [facility] [address] [address] Work Phone: 10-07-2021 14:50-0400 Body mass index (BMI) [Ratio] 25.24 kg/m2 Simon M Newbill Work Phone: [facility] [address] [address] Work Phone: 10-07-2021 14:50-0400 Body surface area Derived from formula 1.76 m2 Simon M Newbill Work Phone: [facility] [address] Work Phone: 10-07-2021 14:50-0400 Body weight 68.8 kg Simon M Newbill Work Phone: [facility] [address] Work Phone: 10-07-2021 14:50-0400 Diastolic blood pressure 68 mm[Hg] Simon M Newbill Work Phone: [facility] [address] Work Phone: 10-07-2021 14:50-0400 Systolic blood pressure 110 mm[Hg] Simon M Newbill Work Phone: [facility] [address] Work Phone: 09-30-2021 08:53-0400 Body height 165.1 cm Simon M Newbill Work Phone: [facility] Work Phone: 09-30-2021 08:53-0400 Body mass index (BMI) [Ratio] 24.96 kg/m2 Simon Hermosillo Work Phone: [facility] Work Phone: 09-30-2021 08:53-0400 Body surface area Derived from formula 1.75 m2 Simon Hermosillo Work Phone: [facility] Work Phone: 09-30-2021 08:53-0400 Body weight 68.04 kg Simon Hermosillo Work Phone: [facility] Work Phone: 09-30-2021 08:53-0400 Diastolic blood pressure 77 mm[Hg] Simon Hermosillo Work Phone: [facility] Work Phone: 09-30-2021 08:53-0400 Heart rate 77 /min Simon Hermosillo Work Phone: [facility] Work Phone: 09-30-2021 08:53-0400 Systolic blood pressure 106 mm[Hg] Simon Hermosillo Work Phone: [facility] Work Phone: 09-27-2021 11:30-0400 Diastolic blood pressure 75 mm[Hg] No Pcp Required [facility] 09-27-2021 11:30-0400 Heart rate 78 /min No Pcp Required [facility] 09-27-2021 11:30-0400 Respiratory rate 17 /min No Pcp Required [facility] 09-27-2021 11:30-0400 SaO2% (BldA) [Mass fraction] 100 % No Pcp Required [facility] 09-27-2021 11:30-0400 Systolic blood pressure 104 mm[Hg] No Pcp Required [facility] 09-27-2021 08: Body height 162.5 cm No Pcp Required [facility] 09-27-2021 08: Body temperature 97.52 [degF] No Pcp Required [facility] 09-27-2021 08: Body weight 66 kg No Pcp Required [facility] Encounters Encounter Date Encounter Type Care Provider Facility Start: 02-28-2023 End: 02-28-2023 ambulatory SIMON Fraga [facility] Start: 02-28-2023 End: 02-28-2023 Office outpatient visit 25 minutes Simon MCKEEC Work Phone: [facility] Procedures Date Procedure Procedure Detail Performing Clinician Start: 11-06-2022 MARY-WITH REFLEX TO JENNIFER SIMON NEWBILL Start: 11-06-2022 ANTI-T3 AUTOANTIBODY SE AN NEWBILL Start: 11-06-2022 Basic metabolic 2000 panel - Serum or Plasma SIMON NEWBILL Start: 11-06-2022 CBC panel - Blood by Automated count SIMON NEWBILL Start: 11-06-2022 DEAMIDATED GLIADIN A NTIBODY IGA SIMON NEWBILL Start: 11-06-2022 Hemoglobin A1c/Hemoglobin.total in Blood SIMON NEWBILL Start: 11-06-2022 Hepatic function 200 0 panel - Serum or Plasma SIMON NEWBILL Start: 11-06-2022 HIGH SENSITIVITY CRP SE AN NEWBILL Start: 11-06-2022 Lipid panel SIMON NEWBI LL Start: 11-06-2022 Magnesium [Mass/volu me] in Serum or Plasma SIMON NEWBILL Start: 11-06-2022 RHEUMATOID FACTOR SIMON NEWBILL Start: 11-06-2022 SEDIMENTATION RATE, AUTOMATED SIMON NEWBILL Start: 11-06-2022 TSH WITH REFLEX TO F REE T4 IF ABNORMAL SIMON NEWBILWeston Start: 11-06-2022 Lipid 1996 panel - S judit or Plasma Simon Hermosillo PA-C Work Phone: Start: 11-06-2022 Thyrotropin [Units/v olume] in Serum or Plasma Simon Hermosillo PA-C Work Phone: Start: 08-07-2022 ANTI-T4 AUTOANTIBODY SE BRADY HERMOSILLO Start: 09-27-2021 End: 09-27-2021 EKG impression Miles Joseph section Simon guevara Work Phone: Plan of Treatment Date Care Activity Detail Author Start: 2037 Zoster Vaccines (1 of 2) Zoster Vaccines (1 of 2) [facility] Start: 11-07-2027 Lipid panel Lipid Panel [facility] Start: 09-27-2024 Diabetes mellitus screening Diabetes Screening [facility] Start: 11-07-2023 Thyroid stimulating hormone measurement TSH Level [facility] Start: 02-28-2023 End: 02-29-2024 MR Brain WO and W contrast IV MR brain w and wo IV contrast Imaging Routine History of prolactinoma Acute intractable headache, unspecified headache type Expected: 02/28/2023, Expires: 02/29/2024 [facility] Service Area Work Phone: Immunizations Immunization Date Immunization Notes Care Provider Fa [facility] 02-04-2022 influenza, seasonal, injectable Simon Hermosillo Work Phone: [facility] Work Phone: Payers Date Payer Category Payer Private Health Insurance [id number] 2021 Unknown 2021 Unknown [id number] 1987 Unknown [id number] 2. [id number] 1987 Unknown [id number] 2. [id number] 1987 Unknown [id number] 2. [id number] 1987 Unknown [id number] 2. [id number] 1987 Unknown [id number] 2. [id number] 1987 Unknown [id number] .16.84 [id number] 1987 Unknown [id number] 2.16.84 [id number] 1987 Unknown [id number] 2.16.8 [id number] 1987 Unknown [id number] 2.16.8 [id number] 1987 Unknown [id number] 2.16.8 [id number] 1987 Unknown [id number] 2.16.8 [id number] 1987 Unknown [id number] 2.16.8 [id number] 1987 Unknown [id number] 2.16.84 [id number] Social History Date Type Detail Facility [facility] Tobacco smoking consumption unknown [facility] Start: 11-02-2022 End: 02-28-2023 Patient consumes caffeinated coffee Patient consumes caffeinated coffee -[facility] Work Phone: Start: 11-19-2021 [facility] End: 03-21-2011 History of tobacco use Current smoker [facility] End: 03-21-2011 History of tobacco use Cigarette Smoker [facility] Start: 11-19-2021 End: 07-26-2022 Tobacco use and exposure Smokeless tobacco non-user [facility] Start: 1985 Sex Assigned At Not on file [facility] Start: 11-09-2021 End: 02-28-2023 Exposure to SARS-CoV-2 (event) Not sure [facility] Start: 07-26-2022 [facility] Work Phone: Start: 07-26-2022 End: 02-28-2023 Alcohol intake Current drinker of alcohol (finding) [facility] Work Phone: Start: 11-02-2022 End: 02-28-2023 Gender identity Not on file [facility] Work Phone: Functional Status Date Assessment Result Facility 09-30-2021 IGF ZSCORE CALCULATION IGF ZSCORE CALCULA TION 1.6 [facility] Work Phone: Clinical Notes 10-07-2020 to 02-28-2023 Simon Hermosillo PA-C - 02/28/2023 2:30 PM Carmela Hermosillo PA-C - 07/26/2022 4:30 PM EDNika Perez MD - 11/19/2021 4:03 PM Slade Pate - 11/19/2021 10:44 AM EDT Note Date & Type Note Facility 02-28-2023 History of Present illness Narrative Subjective Patient ID: Dallas Vail is a 37 y.o. female who presents for Follow-up ([facility] on 02-26-23, for migraines. Patient states Migraines started Tuesday night, having pressure of the left eye with discomfort intermittently.). HPI Patient presents in follow-up for headache. Patient reports onset of a headache in the left occipital region 3 days ago. At that time, there were no other associated signs or symptoms except for dizziness. Patient managed conservatively by simply resting and the headache did not improve. The next day, the headache returned with some associated left eye pain. No nausea or vomiting. Patient presented to the ER and no treatment was rendered. Labs are unremarkable. Patient has started Plaquenil recently in management of RA. 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 No reported neurological deficits or changes in vision. No other complaints. Review of Systems Constitutional: See HPI Neurologic: See HPI All other systems are negative Objective BP 117/81 Pulse 69 Ht 1.638 m (5' 4.5 ) Wt 83.1 kg (183 lb 1.6 oz) BMI 30.94 kg/m Physical Exam General: Alert and oriented, No acute distress. Eye: Pupils are equal, round and reactive to light, Normal conjunctiva. EOMI HENT: Normocephalic, Neck: Supple Respiratory: Respirations are non-labored Musculoskeletal: Normal ROM and strength Integumentary: Warm, Dry, Intact, No pallor, No rash. Neurologic: Alert, Oriented, Normal sensory, Cranial Nerves II-XII are grossly intact Psychiatric: Cooperative, Appropriate mood & affect. Assessment/Plan Acute headache: Wrote for Fioricet in the short-term. MRI with and without contrast ordered at patient request. Further recommendations pending results. Other possible etiologies reviewed. Problem List Items Addressed This Visit None Visit Diagnoses History of prolactinoma - Primary Relevant Medications uhyzzsxqht-byeccctkkitif-usxj 50-325-40 mg tablet Other Relevant Orders MR brain w and wo IV contrast Acute intractable headache, unspecified headache type Relevant Medications iikmketpqg-ygomsokwxmhac-uwhh 50-325-40 mg tablet Other Relevant Orders MR brain w and wo IV contrast Final diagnoses: [Z86.018] History of prolactinoma [R51.9] Acute intractable headache, unspecified headache type documented in this encounter [facility] Work Phone: 07-26-2022 History of Present illness Narrative Subjective Patient ID: Dallas Vail is a 37 y.o. female who presents for Follow-up (Gaining a lot of weight. Swelling in legs, primarily left leg. Was told in the past that she had PVC's. ). HPI Patient presents to discuss multiple complaints. Patient reports several months of worsening polyarthralgia involving all major joints. Patient states it has been there to a lesser degree for some time but has worsened without known precipitating event. No reported attempted conservative management. Patient also complains of intermittent palpitations. Patient reports prior diagnosis of PVCs but is concerned about the frequency and intensity of the PVCs lately. Patient also complains of weight gain. Patient admittedly is not exercising an ideal amount but does exercise some and despite diet changes weight is difficult to lose. Review of Systems Constitutional: See HPI Cardiovascular: See HPI Musculoskeletal: See HPI Integumentary: No rash. Neurologic: Alert and oriented X4, No numbness, No tingling. All other systems are negative Objective BP 116/75 Pulse 87 Ht 1.651 m (5' 5 ) Wt 81.6 kg (180 lb) SpO2 98% BMI 29.95 kg/m Physical Exam General: Alert and oriented, No acute distress. Eye: Pupils are equal, round and reactive to light, Normal conjunctiva. HENT: Normocephalic, Neck: Supple Respiratory: Respirations are non-labored Musculoskeletal: Normal ROM and strength Integumentary: Warm, Dry, Intact, No pallor, No rash. Neurologic: Alert, Oriented, Normal sensory, Cranial Nerves II-XII are grossly intact Psychiatric: Cooperative, Appropriate mood & affect. Assessment/Plan Intermittent palpitations: Holter monitor. Further recommendations pending results Polyarthralgia/weight gain/subclinical hypothyroidism: MARY, CRP, ESR, NT T3 and T4 autoantibodies, deamidated gliadin peptide, RF and endocrine referral ordered. Problem List Items Addressed This Visit Subclinical hypothyroidism Relevant Orders TSH with reflex to Free T4 if abnormal Referral to Endocrinology Other Visit Diagnoses Intermittent palpitations - Primary Relevant Orders 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 Polyarthralgia Relevant Orders MARY with Reflex to JENNIFER High sensitivity CRP Sedimentation Rate Anti-T3 Autoantibody Anti-T4 Autoantibody Deamidated Gliadin Antibody IgA Rheumatoid factor Referral to Endocrinology Weight gain Relevant Orders Referral to Endocrinology Final diagnoses: [R00.2] Intermittent palpitations [M25.50] Polyarthralgia [E03.8] Subclinical hypothyroidism [R63.5] Weight gain documented in this encounter [facility] Work Phone: 03-05-2022 History of Present illness Narrative Patient presents for evaluation of facial rash. Patient reports onset 2 to 3 weeks ago after using witch rosalio astringent for cleansing. Patient treated that particular instance with CeraVe and it improved. Patient went swimming in a pool shortly thereafter and the rash became significantly more inflamed, pruritic, and slightly tender. Patient has been managing symptoms with [id number] hydrocortisone cream with some success. No prior similar incidents. Patient does report other areas of similar but less intense outbreaks on the legs during the wintertime. No other complaints. [facility] Work Phone: 11-19-2021 Note HNO ID: [id number] Author: Ingrid Perez MD Service: ? Author Type: Physician Type: Progress Notes Filed: 11/23/2021 11:07 AM Note Text: [place] 1985 REFERRING PHYSICIAN: MD Salvador CHIEF COMPLAINT: Consult (Gallbladder) HPI: The patient is a pleasant 36 year old female presents with complaint of abdominal pain. She states that her symptoms started in January of 2021. She notes epigastric pain like being kicked in the abdomen. She also notes right sided abdominal cramping pain. She also noted bouts of constipation and nausea and a few pounds of weight loss. She notes that her symptoms are triggered by certain foods, which she has been avoiding. She denies fevers; she denies emesis. She also notes acid reflux and heartburn. She was evaluated by GI medicine in [place] SIBO study - 05/31/2021 - this is a difficult to interpret study. Using 80 minute values it is definitely negative. Using 100 minute values it would be positive for both hydrogen and methane excess. There is a drop in value so, hence, there is a double peak so the 100 minute values could represent a true positive. Clinical coreelation is advixed. US 06/01/2021 - normal EGD 05/22/2021 - no ulcers/masses HIDA scan 06/03/2021 - gallbladder EF 12% She was seen by general surgery at [facility] and had been scheduled for cholecystectomy. PAST MEDICAL HISTORY Diagnosis Date Asymptomatic varicose veins Disorder of thyroid History of prolactinoma IBS (irritable bowel syndrome) 2010 Non-celiac gluten sensitivity PAST SURGICAL HISTORY Procedure Laterality Date SECTION HX 2017 Cervical cryosurgery 2010 Current Outpatient Medications Medication Sig B Complex-Vitamin C-Folic Acid 900 mcg/5 mL liqd cholecalciferol, vitamin D3, (VITAMIN D3) 100 mcg (4,000 unit) cap loratadine (CLARITIN) 10 mg tablet Take 1 tablet by mouth once daily. multivitamin tablet Take by mouth q 24 HR. levothyroxine (SYNTHROID) 25 mcg tablet sucralfate (CARAFATE) 1 gram tablet Take 1 tablet by mouth four times daily. ALLERGIES: Patient has no allergy information on record. PERSONAL HISTORY: Social History Tobacco Use Smoking status: Former Types: Cigarettes Quit date: 2011 Years since quittin.6 Smokeless tobacco: Never FAMILY HISTORY Problem Relation Age of Onset other (high cholest) Mother Arthritis Mother Alcohol abuse Father Colon Cancer Maternal Grandmother Diabetes Maternal Grandfather Heart Maternal Grandfather Dementia Paternal Grandmother The review of systems data was entered by the nurse and reviewed by tx Nursing Notes: Andreea Pate 11/19/2021 10:49 AM Signed REVIEW OF SYSTEMS: General: The patient denies fatigue, NOTES weight loss, denies weight gain, denies feeling hot, and NOTES feelings of cold. Eyes: The patient denies glaucoma, denies eye injury/surgery, wears glasses or contacts. Ear/Nose/Throat: The patient NOTES allergies, denies hayfever, denies ear infections, and denies bloody noses. Cardiovascular: The patient denies chest pain, denies heart disease, denies high blood pressure,denies cardiac stent, denies prior heart attack, denies irregular heart beat, denies high cholesterol, denies poor circulation, denies heart failure, other cardiac issues, denies claudication, denies cold feet, denies peripheral arterial stent. Respiratory: had noted shortness of breath with exertion - chest CT - 05/13/2021 was normal, denies tuberculosis, denies pneumonia, denies frequent cough, denies pulmonary embolism, denies shortness of breath, and denies coughing up blood. Gastrointestinal: The patient denies difficulty swallowing, NOTES acid reflux, denies ulcers, denies vomiting, denies jaundice/hepatitis, NOTES gallbladder problems, denies black or tarry stools, denies hemorrhoids, denies bleeding from rectum, denies diverticulitis, denies constipation, denies diarrhea, denies loss of stool control, and denies hernias. Kidney/Bladder: The patient denies kidney stones, denies urine infections, and denies bloody urine. Skin: The patient denies a history of skin cancer, denies bleeding/changing moles, and denies a history of skin rash. Neurologic: The patient denies a history of epilepsy/convulsions, denies headaches, denies head/spinal injuries, and denies stroke/TIA. Psychiatric: The patient denies psychiatric medications, denies depression, and denies voices, denies substance abuse. Endocrine: The patient NOTES thyroid disorders - normal TSH and normal thyroid US 10/07/2021 from [facility] - reviewed by me, denies diabetes, and denies hormonal problems. Hematologic: The patient denies a history of bruising, denies bleeding, and denies anemia, denies blood clots. Infections: The patient denies a history of measles and mumps, denies rheumatic fever, and denies sexually transmitted diseases. Musculoskeletal: The patient denies back (more content not included)... [facility] 11-19-2021 History of Present illness Narrative [place] 1985 REFERRING PHYSICIAN: MD Salvador CHIEF COMPLAINT: Consult (Gallbladder) HPI: The patient is a pleasant 36 year old female presents with complaint of abdominal pain. She states that her symptoms started in January of 2021. She notes epigastric pain like being kicked in the abdomen. She also notes right sided abdominal cramping pain. She also noted bouts of constipation and nausea and a few pounds of weight loss. She notes that her symptoms are triggered by certain foods, which she has been avoiding. She denies fevers; she denies emesis. She also notes acid reflux and heartburn. She was evaluated by GI medicine in [place] SIBO study - 05/31/2021 - this is a difficult to interpret study. Using 80 minute values it is definitely negative. Using 100 minute values it would be positive for both hydrogen and methane excess. There is a drop in value so, hence, there is a double peak so the 100 minute values could represent a true positive. Clinical coreelation is advixed. US 06/01/2021 - normal EGD 05/22/2021 - no ulcers/masses HIDA scan 06/03/2021 - gallbladder EF 12% She was seen by general surgery at [facility] and had been scheduled for cholecystectomy. PAST MEDICAL HISTORY Diagnosis Date Asymptomatic varicose veins Disorder of thyroid History of prolactinoma IBS (irritable bowel syndrome) 2010 Non-celiac gluten sensitivity PAST SURGICAL HISTORY Procedure Laterality Date SECTION HX 2017 Cervical cryosurgery 2010 Current Outpatient Medications Medication Sig B Complex-Vitamin C-Folic Acid 900 mcg/5 mL liqd cholecalciferol, vitamin D3, (VITAMIN D3) 100 mcg (4,000 unit) cap loratadine (CLARITIN) 10 mg tablet Take 1 tablet by mouth once daily. multivitamin tablet Take by mouth q 24 HR. levothyroxine (SYNTHROID) 25 mcg tablet sucralfate (CARAFATE) 1 gram tablet Take 1 tablet by mouth four times daily. ALLERGIES: Patient has no allergy information on record. PERSONAL HISTORY: Social History Tobacco Use Smoking status: Former Types: Cigarettes Quit date: 2011 Years since quittin.6 Smokeless tobacco: Never FAMILY HISTORY Problem Relation Age of Onset other (high cholest) Mother Arthritis Mother Alcohol abuse Father Colon Cancer Maternal Grandmother Diabetes Maternal Grandfather Heart Maternal Grandfather Dementia Paternal Grandmother The review of systems data was entered by the nurse and reviewed by tx Nursing Notes: Andreea Pate 11/19/2021 10:49 AM Signed REVIEW OF SYSTEMS: General: The patient denies fatigue, NOTES weight loss, denies weight gain, denies feeling hot, and NOTES feelings of cold. Eyes: The patient denies glaucoma, denies eye injury/surgery, wears glasses or contacts. Ear/Nose/Throat: The patient NOTES allergies, denies hayfever, denies ear infections, and denies bloody noses. Cardiovascular: The patient denies chest pain, denies heart disease, denies high blood pressure,denies cardiac stent, denies prior heart attack, denies irregular heart beat, denies high cholesterol, denies poor circulation, denies heart failure, other cardiac issues, denies claudication, denies cold feet, denies peripheral arterial stent. Respiratory: had noted shortness of breath with exertion - chest CT - 05/13/2021 was normal, denies tuberculosis, denies pneumonia, denies frequent cough, denies pulmonary embolism, denies shortness of breath, and denies coughing up blood. Gastrointestinal: The patient denies difficulty swallowing, NOTES acid reflux, denies ulcers, denies vomiting, denies jaundice/hepatitis, NOTES gallbladder problems, denies black or tarry stools, denies hemorrhoids, denies bleeding from rectum, denies diverticulitis, denies constipation, denies diarrhea, denies loss of stool control, and denies hernias. Kidney/Bladder: The patient denies kidney stones, denies urine infections, and denies bloody urine. Skin: The patient denies a history of skin cancer, denies bleeding/changing moles, and denies a history of skin rash. Neurologic: The patient denies a history of epilepsy/convulsions, denies headaches, denies head/spinal injuries, and denies stroke/TIA. Psychiatric: The patient denies psychiatric medications, denies depression, and denies voices, denies substance abuse. Endocrine: The patient NOTES thyroid disorders - normal TSH and normal thyroid US 10/07/2021 from [facility] - reviewed by me, denies diabetes, and denies hormonal problems. Hematologic: The patient denies a history of bruising, denies bleeding, and denies anemia, denies blood clots. Infections: The patient denies a history of measles and mumps, denies rheumatic fever, and denies sexually transmitted diseases. Musculoskeletal: The patient denies back pain/injury, denies back problems, denies sciatica, denies knee/foot trouble, denies arthritis, or denies gout. When was patient's last Mammogram screening? 2011 Last Colonoscopy: None Andreea Pate PHYSICAL EXAMINATION: General: The patient is 36 year old female, well nourished, well hydrated in no acute distress. The patient is oriented to time, place, and person. VITALS: Blood pressure 119/77, pulse 77, temperature 37.1 C (98.7 F), height 165.1 cm (5' 5 ), weight 69.4 kg (153 lb), SpO2 98 %. Body mass index is 25.46 kg/m . Head: Normal cephalic, atraumatic Eyes: pupils are equally round, sclera are clear/anicteric, wearing glasses Neck is supple with no tracheal deviation Respiratory: Normal respiratory excursion and pattern. Abdominal exam: benign Extremities: no clubbing, cyanosis or edema. Neuro: non focal Psych: normal mood RADIOLOGIC STUDIES: As Noted Assessment IMPRESSION: abdominal pain - epigastric PLAN: I have discussed the above with the patient. I have offered laparoscopic cholecystectomy for abnormal HIDA scan. I have explained the procedure to the patient and the risks/benefits of surgery. Also, the patient may have bile gastritis given findings of biliary dyskinesia. She does not want to undergo surgery at this point in time. I have prescribed carafate as an alternative to surgery to improve her symptoms. Patient acknowledges the above. I have told patient to return to this office if any worsening signs/symptoms. I have answered all questions to the patient s satisfaction and the patient has no further questions. I have confirmed and edited as necessary, the PFSH and ROS obtained by others. . Diagnoses: (R10.13) Epigastric abdominal pain (primary encounter diagnosis) (R94.8) Abnormal biliary HIDA scan Return to Clinic: The patient is instructed to follow-up with me as above. Medical Decision Making: Problems: Low: Stable chronic illness Data: Unique test result(s) reviewed: 1 Risk: Moderate: Drug management Medical Decision Making Level: 3 - Low Ingrid Perez MD documented in this encounter [facility] 11-19-2021 Nurse Note REVIEW OF SYSTEMS: General: The patient denies fatigue, NOTES weight loss, denies weight gain, denies feeling hot, and NOTES feelings of cold. Eyes: The patient denies glaucoma, denies eye injury/surgery, wears glasses or contacts. Ear/Nose/Throat: The patient NOTES allergies, denies hayfever, denies ear infections, and denies bloody noses. Cardiovascular: The patient denies chest pain, denies heart disease, denies high blood pressure,denies cardiac stent, denies prior heart attack, denies irregular heart beat, denies high cholesterol, denies poor circulation, denies heart failure, other cardiac issues, denies claudication, denies cold feet, denies peripheral arterial stent. Respiratory: The patient denies tuberculosis, denies pneumonia, denies frequent cough, denies pulmonary embolism, denies shortness of breath, and denies coughing up blood. Gastrointestinal: The patient denies difficulty swallowing, NOTES acid reflux, denies ulcers, denies vomiting, denies jaundice/hepatitis, NOTES gallbladder problems, denies black or tarry stools, denies hemorrhoids, denies bleeding from rectum, denies diverticulitis, denies constipation, denies diarrhea, denies loss of stool control, and denies hernias. Kidney/Bladder: The patient denies kidney stones, denies urine infections, and denies bloody urine. Skin: The patient denies a history of skin cancer, denies bleeding/changing moles, and denies a history of skin rash. Neurologic: The patient denies a history of epilepsy/convulsions, denies headaches, denies head/spinal injuries, and denies stroke/TIA. Psychiatric: The patient denies psychiatric medications, denies depression, and denies voices, denies substance abuse. Endocrine: The patient NOTES thyroid disorders, denies diabetes, and denies hormonal problems. Hematologic: The patient denies a history of bruising, denies bleeding, and denies anemia, denies blood clots. Infections: The patient denies a history of measles and mumps, denies rheumatic fever, and denies sexually transmitted diseases. Musculoskeletal: The patient denies back pain/injury, denies back problems, denies sciatica, denies knee/foot trouble, denies arthritis, or denies gout. When was patient's last Mammogram screening? 2011 Last Colonoscopy: None Andreea Pate documented in this encounter [facility] 10-07-2020 History of Present illness Narrative Patient presents stating that she has noticed that her menstrual flows have become heavy with clots over the last year. Patient states that her menstrual flows became heavy after she received the COVID vaccination. The heavy flow gradually improved until she became COVID-positive in July 2021 for which her menstrual flows once again became very heavy. Patient had a pelvic ultrasound performed which was normal earlier this year in [place] prior to her moving to [place]. She is currently using condoms for contraception. She denies any bowel or bladder problems. [address] Work Phone: documented in this encounter [facility] Diagnosis Intermittent palpitations- Primary Polyarthralgia Pain in joint, multiple sites Subclinical hypothyroidism Other specified acquired hypothyroidism Weight gain Other symptoms concerning nutrition, metabolism, and development documented in this encounter [facility] Work Phone: Evaluation note* Diagnosis History of prolactinoma- Primary Acute intractable headache, unspecified headache type documented in this encounter [facility] Work Phone: History of Present illness Narrative* Patient presents to [facility]. * Currently, patient takes no daily medications and has no diagnosed chronic illnesses. * Patient has several concerns today. Patient has had at least a year, possibly more of symptoms consistent with panic attacks including elevated heart rate, chest pressure, even choking sensation. Patient presented to the ER with these symptoms with the addition of measurable tachycardia between 120and 140 3 days ago and full cardiac work-up was unremarkable. TSH was slightly elevated and T4 was normal. Patient feels overwhelmed often and is requesting evaluation of possible anxiety and/or depression. There is also associated insomnia where the patient has difficulty falling asleep and then staying asleep. Patient states this was all exacerbated by fairly recent COVID-19 infection. * Patient also reports abnormal menstrual cycle and hair loss exacerbated by COVID-19 vaccination andinfection. Patient was previously evaluated for this and advised that cycle regulation with oral contraceptives was the only option and patient declined. Patient also believes that this may be exacerbated by untreated anxiety and depression. * Patient is concerned about possible thyroid disorder. Patient reports having symptoms consistent with this for many years. Patient was evaluated by endocrinology in [place] who stated the patient was okay with elevated TSH but normal T4. Patient is convinced that at least some of the symptoms are due to this mismatch. 3 days ago in the ER, TSH was 4.83 with normal T4. * Patient reports having history of prolactinoma as well. Most recent MRI however, showed resolution or near resolution of this. * Overall, the patient simply feels terrible most of the time and off. Admittedly, the patient has been feeling like this for some time but it was recently exacerbated by moved from [place] back to [place], illness, and general worsening of the symptoms themselves. With further discussion, patient rep orts periods of profound sadness, irritability, crying spells that are unprovoked, general lack of vish, and this is reportedly affecting family life. * Incidentally, patient also has gallbladder disease. Patient underwent HIDA scan prior to moving to [place] which showed an ejection fraction of 12%. Patient has been able to manage this fairly well withdiet modifications. Patient also has history of IBD per endoscopy and gastroenterology. [facility] Work Phone: History of Present illness Narrative* Patient presents to [facility]. * Currently, patient takes no daily medications and has no diagnosed chronic illnesses. * Patient has several concerns today. Patient has had at least a year, possibly more of symptoms consistent with panic attacks including elevated heart rate, chest pressure, even choking sensation. Patient presented to the ER with these symptoms with the addition of measurable tachycardia between 120and 140 3 days ago and full cardiac work-up was unremarkable. TSH was slightly elevated and T4 was normal. Patient feels overwhelmed often and is requesting evaluation of possible anxiety and/or depression. There is also associated insomnia where the patient has difficulty falling asleep and then staying asleep. Patient states this was all exacerbated by fairly recent COVID-19 infection. * Patient also reports abnormal menstrual cycle and hair loss exacerbated by COVID-19 vaccination andinfection. Patient was previously evaluated for this and advised that cycle regulation with oral contraceptives was the only option and patient declined. Patient also believes that this may be exacerbated by untreated anxiety and depression. * Patient is concerned about possible thyroid disorder. Patient reports having symptoms consistent with this for many years. Patient was evaluated by endocrinology in [place] who stated the patient was okay with elevated TSH but normal T4. Patient is convinced that at least some of the symptoms are due to this mismatch. 3 days ago in the ER, TSH was 4.83 with normal T4. * Patient reports having history of prolactinoma as well. Most recent MRI however, showed resolution or near resolution of this. * Overall, the patient simply feels terrible most of the time and off. Admittedly, the patient has been feeling like this for some time but it was recently exacerbated by moved from [place] back to [place], illness, and general worsening of the symptoms themselves. With further discussion, patient rep orts periods of profound sadness, irritability, crying spells that are unprovoked, general lack of vish, and this is reportedly affecting family life. * Incidentally, patient also has gallbladder disease. Patient underwent HIDA scan prior to moving to [place] which showed an ejection fraction of 12%. Patient has been able to manage this fairly well withdiet modifications. Patient also has history of IBD per endoscopy and gastroenterology. [facility] Work Phone: History of Present illness Narrative* Patient presents to [facility] care. * Currently, patient takes no daily medications and has no diagnosed chronic illnesses. * Patient has several concerns today. Patient has had at least a year, possibly more of symptoms consistent with panic attacks including elevated heart rate, chest pressure, even choking sensation. Patient presented to the ER with these symptoms with the addition of measurable tachycardia between 120and 140 3 days ago and full cardiac work-up was unremarkable. TSH was slightly elevated and T4 was normal. Patient feels overwhelmed often and is requesting evaluation of possible anxiety and/or depression. There is also associated insomnia where the patient has difficulty falling asleep and then staying asleep. Patient states this was all exacerbated by fairly recent COVID-19 infection. * Patient also reports abnormal menstrual cycle and hair loss exacerbated by COVID-19 vaccination andinfection. Patient was previously evaluated for this and advised that cycle regulation with oral contraceptives was the only option and patient declined. Patient also believes that this may be exacerbated by untreated anxiety and depression. * Patient is concerned about possible thyroid disorder. Patient reports having symptoms consistent with this for many years. Patient was evaluated by endocrinology in [place] who stated the patient was okay with elevated TSH but normal T4. Patient is convinced that at least some of the symptoms are due to this mismatch. 3 days ago in the ER, TSH was 4.83 with normal T4. * Patient reports having history of prolactinoma as well. Most recent MRI however, showed resolution or near resolution of this. * Overall, the patient simply feels terrible most of the time and off. Admittedly, the patient has been feeling like this for some time but it was recently exacerbated by moved from [place] back to [place], illness, and general worsening of the symptoms themselves. With further discussion, patient rep orts periods of profound sadness, irritability, crying spells that are unprovoked, general lack of vish, and this is reportedly affecting family life. * Incidentally, patient also has gallbladder disease. Patient underwent HIDA scan prior to moving to [place] which showed an ejection fraction of 12%. Patient has been able to manage this fairly well withdiet modifications. Patient also has history of IBD per endoscopy and gastroenterology. [facility] Work Phone: History of Present illness Narrative* Patient presents to [facility] care. * Currently, patient takes no daily medications and has no diagnosed chronic illnesses. * Patient has several concerns today. Patient has had at least a year, possibly more of symptoms consistent with panic attacks including elevated heart rate, chest pressure, even choking sensation. Patient presented to the ER with these symptoms with the addition of measurable tachycardia between 120and 140 3 days ago and full cardiac work-up was unremarkable. TSH was slightly elevated and T4 was normal. Patient feels overwhelmed often and is requesting evaluation of possible anxiety and/or depression. There is also associated insomnia where the patient has difficulty falling asleep and then staying asleep. Patient states this was all exacerbated by fairly recent COVID-19 infection. * Patient also reports abnormal menstrual cycle and hair loss exacerbated by COVID-19 vaccination andinfection. Patient was previously evaluated for this and advised that cycle regulation with oral contraceptives was the only option and patient declined. Patient also believes that this may be exacerbated by untreated anxiety and depression. * Patient is concerned about possible thyroid disorder. Patient reports having symptoms consistent with this for many years. Patient was evaluated by endocrinology in [place] who stated the patient was okay with elevated TSH but normal T4. Patient is convinced that at least some of the symptoms are due to this mismatch. 3 days ago in the ER, TSH was 4.83 with normal T4. * Patient reports having history of prolactinoma as well. Most recent MRI however, showed resolution or near resolution of this. * Overall, the patient simply feels terrible most of the time and off. Admittedly, the patient has been feeling like this for some time but it was recently exacerbated by moved from [place] back to [place], illness, and general worsening of the symptoms themselves. With further discussion, patient rep orts periods of profound sadness, irritability, crying spells that are unprovoked, general lack of vish, and this is reportedly affecting family life. * Incidentally, patient also has gallbladder disease. Patient underwent HIDA scan prior to moving to [place] which showed an ejection fraction of 12%. Patient has been able to manage this fairly well withdiet modifications. Patient also has history of IBD per endoscopy and gastroenterology. [facility] Work Phone: Reason for referral (narrative)* Consultation (Routine) - Authorized Specialty Diagnoses / Procedures Referred By Narayan mohr Referred To Contact Endocrinology Diagnoses Polyarthralgia Subclinical hypothyroidism Weight gain Procedures [place] OFFICE/OUTPATIENT [facility] 60-74 MINUTES Simon Hermosillo PA-C [address] [place] [address] [place] [address] Referral ID Status Reason Start Date Expiration Date Visits Requested Visits Authorized [id number] Authorized Specialty Services Required 07/26/2022 01/22/2023 1 1 * Cardiac Stress Testing (Routine) - Authorized Specialty Diagnoses / Procedures Referred By Narayan mohr Referred To Contact Cardiology Diagnoses Intermittent palpitations Procedures 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 Simon Hermosillo PA-C [address] [facility] [place] [address] Referral ID Status Reason Start Date Expiration Date V isits Requested Visits Authorized [id number] Authorized 07/26/2022 01/22/2023 1 1 [facility] Work Phone: Chief Complaint * 36 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 * Pt states she has a strong family hx of thyroid disease on her mothers side * Pt has been dealing with the symptoms listed below since summer * fall she ended up getting really sick, they thought it was Gastro related * She states her hair has been falling out in fist fulls * She was in the ER 2-3 days ago due to not feeling well * Her T4 was elevated, as it has been in the past * She states her hormones are everywhere, she is is either crying, sad, mad or stressed out * She reports brain fog and acne * She did lose 20 lbs but was able to gain some back * She can no longer drink coffee * Her nails have gotten brittle, she has not been sleeping well * She was told by a Maintenance Journeyman her symptoms seem to be related to her thyroid * Hx of prolactinoma * She does report getting Covid 07/2021 and since then her symptoms have increased drastically * She also reported throat pressure back in March that felt like someone's hands were around her neck * She states she is desperate and needs help figuring out what is going on with her * She states she is normally a level headed person but with all of this going on her anxiety has beenterrible * 36 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 * Pt states she has a strong family hx of thyroid disease on her mothers side * Pt has been dealing with the symptoms listed below since summer * fall she ended up getting really sick, they thought it was Gastro related * She states her hair has been falling out in fist fulls * She was in the ER 2-3 days ago due to not feeling well * Her T4 was elevated, as it has been in the past * She states her hormones are everywhere, she is is either crying, sad, mad or stressed out * She reports brain fog and acne * She did lose 20 lbs but was able to gain some back * She can no longer drink coffee * Her nails have gotten brittle, she has not been sleeping well * She was told by a Maintenance Journeyman her symptoms seem to be related to her thyroid * Hx of prolactinoma * She does report getting Covid 07/2021 and since then her symptoms have increased drastically * She also reported throat pressure back in March that felt like someone's hands were around her neck * She states she is desperate and needs help figuring out what is going on with her * She states she is normally a level headed person but with all of this going on her anxiety has beenterrible New patient here with c/o heavy vaginal bleeding with clots during her periods. Patient stated thisis not normal for her and it started a year ago. Patient also stated she noticed the heavy flow andclots after she received the COVID vaccine 1st and 2nd dose. Patient also stated is got worst aftershe had COVID. 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 * Pt states she has a strong family hx of thyroid disease on her mothers side * Pt has been dealing with the symptoms listed below since summer * fall she ended up getting really sick, they thought it was Gastro related * She states her hair has been falling out in fist fulls * She was in the ER 2-3 days ago due to not feeling well * Her T4 was elevated, as it has been in the past * She states her hormones are everywhere, she is is either crying, sad, mad or stressed out * She reports brain fog and acne * She did lose 20 lbs but was able to gain some back * She can no longer drink coffee * Her nails have gotten brittle, she has not been sleeping well * She was told by a Maintenance Journeyman her symptoms seem to be related to her thyroid * Hx of prolactinoma * She does report getting Covid 07/2021 and since then her symptoms have increased drastically * She also reported throat pressure back in March that felt like someone's hands were around her neck * She states she is desperate and needs help figuring out what is going on with her * She states she is normally a level headed person but with all of this going on her anxiety has beenterrible * 36 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 * Pt states she has a strong family hx of thyroid disease on her mothers side * Pt has been dealing with the symptoms listed below since summer * Fall of 2020 she ended up getting really sick, they thought it was Gastro related * She states her hair has been falling out in fist fulls * She was in the ER 2-3 days ago due to not feeling well * Her T4 was elevated, as it has been in the past * She states her hormones are everywhere, she is is either crying, sad, mad or stressed out * She reports brain fog and acne * She did lose 20 lbs but was able to gain some back * She can no longer drink coffee * Her nails have gotten brittle, she has not been sleeping well * She was told by a Maintenance Journeyman her symptoms seem to be related to her thyroid * Hx of prolactinoma * She does report getting Covid 07/2021 and since then her symptoms have increased drastically * She also reported throat pressure back in March that felt like someone's hands were around her neck * She states she is desperate and needs help figuring out what is going on with her * She states she is normally a level headed person but with all of this going on her anxiety has beenterrible Rash started on face started about 3 weeks ago. Itchy. Family History No Family History Records FoundUnknown Family Member Name Dates Details Family history of thyroid di sease: Other(V18.19, Z83.49) Status:Active Family history of diabetes m ellitus: Other(V18.0, Z83.3) Status:Active Unknown Family Member Name Dates Details Family history of thyroid di sease: Other(V18.19, Z83.49) Status:Active Family history of diabetes m ellitus: Other(V18.0, Z83.3) Status:Active Unknown Family Member Name Dates Details Family history of thyroid di sease: Other(V18.19, Z83.49) Status:Active Family history of diabetes m ellitus: Other(V18.0, Z83.3) Status:Active Unknown Family Member Name Dates Details Family history of malignant neoplasm of colon: Maternal Grandmother(V16.0, Z80.0) Status:Active Family history of osteoporos is: Mother(V17.81, Z82.62) Status:Active Family history of migraine h eadaches: Mother(V17.2, Z82.0) Status:Active Family history of thyroid di sease: Maternal Aunt(V18.19, Z83.49) Status:Active Family history of diabetes m ellitus: Maternal Grandfather(V18.0, Z83.3) Status:Active Family history of cardiac di sorder: Maternal Grandfather(V17.49, Z82.49) Status:Active Unknown Family Member Name Dates Details Family history of malignant neoplasm of colon: Maternal Grandmother(V16.0, Z80.0) Status:Active Family history of osteoporos is: Mother(V17.81, Z82.62) Status:Active Family history of migraine h eadaches: Mother(V17.2, Z82.0) Status:Active Family history of thyroid di sease: Maternal Aunt(V18.19, Z83.49) Status:Active Family history of diabetes m ellitus: Maternal Grandfather(V18.0, Z83.3) Status:Active Family history of cardiac di sorder: Maternal Grandfather(V17.49, Z82.49) Status:Active Unknown Family Member Name Dates Details Family history of malignant neoplasm of colon: Maternal Grandmother(V16.0, Z80.0) Status:Active Family history of osteoporos is: Mother(V17.81, Z82.62) Status:Active Family history of migraine h eadaches: Mother(V17.2, Z82.0) Status:Active Family history of thyroid di sease: Maternal Aunt(V18.19, Z83.49) Status:Active Family history of diabetes m ellitus: Maternal Grandfather(V18.0, Z83.3) Status:Active Family history of cardiac di sorder: Maternal Grandfather(V17.49, Z82.49) Status:Active Unknown Family Member Name Dates Details Family history of malignant neoplasm of colon: Maternal Grandmother(V16.0, Z80.0) Status:Active Family history of osteoporos is: Mother(V17.81, Z82.62) Status:Active Family history of migraine h eadaches: Mother(V17.2, Z82.0) Status:Active Family history of thyroid di sease: Maternal Aunt(V18.19, Z83.49) Status:Active Family history of diabetes m ellitus: Maternal Grandfather(V18.0, Z83.3) Status:Active Family history of cardiac di sorder: Maternal Grandfather(V17.49, Z82.49) Status:Active Unknown Family Member Name Dates Details Family history of malignant neoplasm of colon: Maternal Grandmother(V16.0, Z80.0) Status:Active Family history of osteoporos is: Mother(V17.81, Z82.62) Status:Active Family history of migraine h eadaches: Mother(V17.2, Z82.0) Status:Active Family history of thyroid di sease: Maternal Aunt(V18.19, Z83.49) Status:Active Family history of diabetes m ellitus: Maternal Grandfather(V18.0, Z83.3) Status:Active Family history of cardiac di sorder: Maternal Grandfather(V17.49, Z82.49) Status:Active Unknown Family Member Name Dates Details Family history of malignant neoplasm of colon: Maternal Grandmother(V16.0, Z80.0) Status:Active Family history of osteoporos is: Mother(V17.81, Z82.62) Status:Active Family history of migraine h eadaches: Mother(V17.2, Z82.0) Status:Active Family history of thyroid di sease: Maternal Aunt(V18.19, Z83.49) Status:Active Family history of diabetes m ellitus: Maternal Grandfather(V18.0, Z83.3) Status:Active Family history of cardiac di sorder: Maternal Grandfather(V17.49, Z82.49) Status:Active Unknown Family Member Name Dates Details Family history of malignant neoplasm of colon: Maternal Grandmother(V16.0, Z80.0) Status:Active Family history of osteoporos is: Mother(V17.81, Z82.62) Status:Active Family history of migraine h eadaches: Mother(V17.2, Z82.0) Status:Active Family history of thyroid di sease: Maternal Aunt(V18.19, Z83.49) Status:Active Family history of diabetes m ellitus: Maternal Grandfather(V18.0, Z83.3) Status:Active Family history of cardiac di sorder: Maternal Grandfather(V17.49, Z82.49) Status:Active Unknown Family Member Name Dates Details Family history of malignant neoplasm of colon: Maternal Grandmother(V16.0, Z80.0) Status:Active Family history of osteoporos is: Mother(V17.81, Z82.62) Status:Active Family history of migraine h eadaches: Mother(V17.2, Z82.0) Status:Active Family history of thyroid di sease: Maternal Aunt(V18.19, Z83.49) Status:Active Family history of diabetes m ellitus: Maternal Grandfather(V18.0, Z83.3) Status:Active Family history of cardiac di sorder: Maternal Grandfather(V17.49, Z82.49) Status:Active Unknown Family Member Name Dates Details Family history of malignant neoplasm of colon: Maternal Grandmother(V16.0, Z80.0) Status:Active Family history of osteoporos is: Mother(V17.81, Z82.62) Status:Active Family history of migraine h eadaches: Mother(V17.2, Z82.0) Status:Active Family history of thyroid di sease: Maternal Aunt(V18.19, Z83.49) Status:Active Family history of diabetes m ellitus: Maternal Grandfather(V18.0, Z83.3) Status:Active Family history of cardiac di sorder: Maternal Grandfather(V17.49, Z82.49) Status:Active Unknown Family Member Name Dates Details Family history of malignant neoplasm of colon: Maternal Grandmother(V16.0, Z80.0) Status:Active Family history of osteoporos is: Mother(V17.81, Z82.62) Status:Active Family history of migraine h eadaches: Mother(V17.2, Z82.0) Status:Active Family history of thyroid di sease: Maternal Aunt(V18.19, Z83.49) Status:Active Family history of diabetes m ellitus: Maternal Grandfather(V18.0, Z83.3) Status:Active Family history of cardiac di sorder: Maternal Grandfather(V17.49, Z82.49) Status:Active Unknown Family Member Name Dates Details Family history of malignant neoplasm of colon: Maternal Grandmother(V16.0, Z80.0) Status:Active Family history of osteoporos is: Mother(V17.81, Z82.62) Status:Active Family history of migraine h eadaches: Mother(V17.2, Z82.0) Status:Active Family history of diabetes m ellitus: Maternal Grandfather(V18.0, Z83.3) Status:Active Family history of thyroid di sease: Maternal Aunt(V18.19, Z83.49) Status:Active Family history of cardiac di sorder: Maternal Grandfather(V17.49, Z82.49) Status:Active Unknown Family Member Name Dates Details Family history of malignant neoplasm of colon: Maternal Grandmother(V16.0, Z80.0) Status:Active Family history of osteoporos is: Mother(V17.81, Z82.62) Status:Active Family history of migraine h eadaches: Mother(V17.2, Z82.0) Status:Active Family history of thyroid di sease: Maternal Aunt(V18.19, Z83.49) Status:Active Family history of diabetes m ellitus: Maternal Grandfather(V18.0, Z83.3) Status:Active Family history of cardiac di sorder: Maternal Grandfather(V17.49, Z82.49) Status:Active Unknown Family Member Name Dates Details Family history of malignant neoplasm of colon: Maternal Grandmother(V16.0, Z80.0) Status:Active Family history of osteoporos is: Mother(V17.81, Z82.62) Status:Active Family history of migraine h eadaches: Mother(V17.2, Z82.0) Status:Active Family history of thyroid di sease: Maternal Aunt(V18.19, Z83.49) Status:Active Family history of diabetes m ellitus: Maternal Grandfather(V18.0, Z83.3) Status:Active Family history of cardiac di sorder: Maternal Grandfather(V17.49, Z82.49) Status:Active Unknown Family Member Name Dates Details Family history of malignant neoplasm of colon: Maternal Grandmother(V16.0, Z80.0) Status:Active Family history of osteoporos is: Mother(V17.81, Z82.62) Status:Active Family history of migraine h eadaches: Mother(V17.2, Z82.0) Status:Active Family history of thyroid di sease: Maternal Aunt(V18.19, Z83.49) Status:Active Family history of diabetes m ellitus: Maternal Grandfather(V18.0, Z83.3) Status:Active Family history of cardiac di sorder: Maternal Grandfather(V17.49, Z82.49) Status:Active Summary Purpose Advance Directives No Advanced Directives Records FoundNo Advanced Directives Records FoundNo Advanced Directives Records FoundNo Advanced Directives Records FoundNo Advanced Directives Records FoundNo Advanced Directives Records Found Reason for Referral Specialty Diagnoses / Procedures Referred By Narayan t Referred To Contact Radiology Diagnoses History of prolactinoma Acute intractable headache, unspecified headache type Procedures MR brain w and wo IV contrast Simon Hermosillo PA-C [address] [facility] [place] [address] Referral ID Status Reason Start Date Expiration Date Visits Requested Visits Authorized [id number] Pending Review Perform Procedure 3 02/28/2024 1 1 Additional Source Comments <item> Privacy Markings (unrecogniz ed section and content) Section Author: Karly Echavarria PROHIBITION ON REDISCLOSURE OF CONFIDENTIAL INFORMATION This notice accompanies a disclosure of information concerning a client made to you with the consent of such client. INFORMATION SOURCE (unrecogn ized section and content) DATE CREATED AUTHOR AUTHOR'S ORGANIZ ATION 11/23/2021 [facility] DATE CREATED AUTHOR AUTHOR'S ORGANIZ ATION 05/12/2022 [facility] DATE CREATED AUTHOR AUTHOR'S ORGANIZ ATION 11/11/2022 [facility] DATE CREATED AUTHOR AUTHOR'S ORGANIZ ATION 11/11/2022 [facility] DATE CREATED AUTHOR AUTHOR'S ORGANIZ ATION 03/02/2023 [facility] Ambulatory Source Comments (unrecognize d section and content) In the event this informatio n is protected by the Federal Confidentiality of Alcohol and Drug Abuse Patient Records regulations: The Federal rules restrict any use of the information to criminally investigate or prosecute any alcohol or drug abuse patient.[facility] Reason for Visit (unrecogniz ed section and content) Reason Comments Follow-up Gaining a lot of noelle ght. Swelling in legs, primarily left leg. Was told in the past that she had PVC's. Reason Comments Follow-up FU ER [facility] on 02-26-23, for migraines. Patient states Migraines started Tuesday night, having pressure of the left eye with discomfort intermittently. Care Teams (unrecognized sec tion and content) Supervisor Home Economics Relationship Specialty Start Date End Date Simon Hermosillo PA-C [address] [facility] [place] [address] PCP - General 09/30/21 Supervisor Home Economics Relationship Specialty Start Date End Date Simon Hermosillo PA-C [address] [facility] [place] [address] PCP - General 09/30/21 Belinda Reynoso APRN-FOREST RESOURCE SPECIALIST [address] [address] PCP - Jillian ETIENNE PCP 04/21/22 FOR RECORDS PERTAINING TO PATIENTS WHO ARE OR HAVE BEEN ENROLLED IN A CHEMICAL DEPENDENCY/SUBSTANCEABUSE PROGRAM, SOME INFORMATION MAY BE OMITTED. This clinical summary was aggregated from multiple sources. Caution should be exercised in using it in the provision of clinical care. This summary normalizes information from multiple sources, and as a consequence, information in this document may materially change the coding, format and clinical context of patient data. In addition, data may be omitted in some cases. CLINICAL DECISIONS SHOULD BE BASED ON THE PRIMARY CLINICAL RECORDS. [facility]. provides no warranty or guarantee of the accuracy or completeness of information in this document.
[2023-04-13 10:51] LABS: Absolute Lymphocyte Count 1.99 X10^3/uL (0.83-4.51); Absolute Neutrophil Count 2.3 X10^3/uL (2.0-7.7); Basophil# 0.06 X10^3/uL; Basophil% 1.2 % (0-1); Eosinophil# 0.14 X10^3/uL; Eosinophils% 2.8 % (0-5); Hematocrit 37.9 % (37-47); Hemoglobin 12.2 g/dL (12.0-15.0); Lymphocyte # 1.99 X10^3/ul (0.83-4.51); Lymphocyte % 40.1 % (19-41); Mean Corp Hgb Conc 32.2 g/dL (32-36); Mean Corpuscular Hgb 31.4 pg (27.0-32.0); Mean Corpuscular Volume 97.7 fL (81-99); Mean Platelet Vol. 11.9 fl (6.2-12.0); Monocyte# 0.46 X10^3/uL; Monocyte% 9.3 % (0-10); NRBC Flagged by Analyzer 0 % (0-5); Neutrophil % 46.4 % (47-70); Platelet Count 250 K/mm3 (150-450); RBC Distribution Width CV 12.8 % (11.6-14.6); RBC Distribution Width SD 45.8 fl (35.1-43.9); Red Blood Count 3.88 M/mm3 (4.2-5.4)
[2023-04-13 11:46] LABS: AST(SGOT) 17 U/L (15-37); Alanine Aminotransfer ALT/SGPT 23 U/L (13-56); Albumin, Serum 3.6 g/dL (3.2-5.0); Alkaline Phosphatase 44 U/L (45-117); Anion Gap 5 (5-15); BUN 12 mg/dL (7-18); BUN/Creat Ratio 15.2 RATIO (10-20); Calcium,Total 8.8 mg/dL (8.5-10.1); Chloride 107 mmol/L (98-107); Creatinine, Serum 0.79 mg/dL (0.55-1.02); EST Glomerular Filtration Rate 88 mL/min (>60); Est Glom Filt Rate - Afr Amer 106 mL/min (>60); Globulin 3.5 g/dL (2.2-4.2); Glucose 96 mg/dL (74-106); Potassium 3.9 mmol/L (3.5-5.1); Protein, Total 7.1 g/dL (6.4-8.2); Sodium Level 137 mmol/L (136-145)
[2023-04-15 15:08] LABS: G6PD Quant Test 263 (127-427); Red Blood Cell Count Test/G6PD 3.93 x10E6/uL (3.77-5.28)
== END | disposition home or self-care (01) ==
PROVIDERS: PCP Internal Medicine; Referring Provider Internal Medicine Rheumatology; Visit Provider Internal Medicine Rheumatology
DX: M06.4 Inflammatory polyarthropathy (principal); R76.8 Other specified abnormal immunological findings in serum; Z79.899 Other long term (current) drug therapy
CPT/HCPCS: 36415; 80053; 82955; 85025

== ENCOUNTER → 2023-06-07 | Outpatient (CLI) | payer OTHER, SELFPAY ==
[2023-06-07 09:22] LABS: Absolute Lymphocyte Count 2.15 X10^3/uL (0.83-4.51); Absolute Neutrophil Count 3.2 X10^3/uL (2.0-7.7); Basophil# 0.08 X10^3/uL; Basophil% 1.3 % (0-1); Eosinophil# 0.26 X10^3/uL; Eosinophils% 4.1 % (0-5); Hematocrit 39.8 % (37-47); Hemoglobin 12.6 g/dL (12.0-15.0); Lymphocyte # 2.15 X10^3/ul (0.83-4.51); Mean Corp Hgb Conc 31.7 g/dL (32-36); Mean Corpuscular Hgb 31.4 pg (27.0-32.0); Mean Corpuscular Volume 99.3 fL (81-99); Mean Platelet Vol. 11.4 fl (6.2-12.0); Monocyte# 0.63 X10^3/uL; NRBC Flagged by Analyzer 0 % (0-5); Neutrophil # 3.19 X10^3/uL (2.7-7.7); Neutrophil % 50.3 % (47-70); Platelet Count 280 K/mm3 (150-450); RBC Distribution Width CV 12.7 % (11.6-14.6); RBC Distribution Width SD 46.5 fl (35.1-43.9); Red Blood Count 4.01 M/mm3 (4.2-5.4); White Blood Count 6.3 K/mm3 (4.4-11.0)
[2023-06-07 09:51] LABS: ALB/GLOB Ratio 1.1 RATIO (0.9-2.4); AST(SGOT) 17 U/L (15-37); Alanine Aminotransfer ALT/SGPT 19 U/L (13-56); Albumin, Serum 3.6 g/dL (3.2-5.0); Alkaline Phosphatase 54 U/L (45-117); Anion Gap 5 (5-15); BUN 12 mg/dL (7-18); BUN/Creat Ratio 15.5 RATIO (10-20); Calcium,Total 8.9 mg/dL (8.5-10.1); Chloride 109 mmol/L (98-107); Creatinine, Serum 0.77 mg/dL (0.55-1.02); EST Glomerular Filtration Rate 90 mL/min (>60); Est Glom Filt Rate - Afr Amer 108 mL/min (>60); Globulin 3.4 g/dL (2.2-4.2); Glucose 93 mg/dL (74-106); Sodium Level 139 mmol/L (136-145)
== END | disposition home or self-care (01) ==
PROVIDERS: PCP Internal Medicine; Referring Provider Internal Medicine Rheumatology; Visit Provider Internal Medicine Rheumatology
DX: M06.4 Inflammatory polyarthropathy (principal); R76.8 Other specified abnormal immunological findings in serum; Z79.899 Other long term (current) drug therapy
CPT/HCPCS: 36415; 80053; 85025

== ENCOUNTER 2023-08-14 17:48 | Emergency (ER) | payer OTHER, SELFPAY ==
[2023-08-14 17:49] VITALS: BP 129/84; PULSE 74; RESP 15; TEMP 36.4; O2SAT 100; BMI 31.9
--- NOTE | 2023-08-14 17:59 | EKG12_ITS ---
Test Reason : SYNCOPE Blood Pressure : / mmHG Vent. Rate : 079 BPM Atrial Rate : 079 BPM P-R Int : 164 ms QRS Dur : 080 ms QT Int : 374 ms P-R-T Axes : 049 056 057 degrees QTc Int : 428 ms Normal sinus rhythm Normal ECG Confirmed by AKBAR ALBRIGHT, COURTNEY ([id number]), associate entertainment editor JEREMIAH DECKER ([id number]) on 08/18/2023 6:15:26 AM Referred By: Confirmed By:ELIAZAR WEBBER MD
[2023-08-14 18:16] LABS: Absolute Lymphocyte Count 2.31 X10^3/uL (0.83-4.51); Absolute Neutrophil Count 4.7 X10^3/uL (2.0-7.7); Basophil# 0.07 X10^3/uL; Basophil% 0.9 % (0-1); Eosinophil# 0.21 X10^3/uL; Eosinophils% 2.6 % (0-5); Hemoglobin 12.6 g/dL (12.0-15.0); Lymphocyte # 2.31 X10^3/ul (0.83-4.51); Lymphocyte % 28.9 % (19-41); Mean Corp Hgb Conc 32.3 g/dL (32-36); Mean Corpuscular Hgb 31.7 pg (27.0-32.0); Monocyte# 0.69 X10^3/uL; Monocyte% 8.6 % (0-10); NRBC Flagged by Analyzer 0 % (0-5); Neutrophil # 4.68 X10^3/uL (2.7-7.7); Neutrophil % 58.7 % (47-70); Platelet Count 255 K/mm3 (150-450); RBC Distribution Width CV 13.1 % (11.6-14.6); RBC Distribution Width SD 46.5 fl (35.1-43.9); Red Blood Count 3.98 M/mm3 (4.2-5.4)
--- NOTE | 2023-08-14 18:20 | RAD_ITS ---
STUDY: X-RAY CHEST REASON FOR EXAM: Female, 38 years old. CHEST PAIN chest pain TECHNIQUE: XR Chest 1 View COMPARISON: None FINDINGS: There is no demonstrated pleural abnormality. Normal size heart. Normal mediastinum and kylah. Normal visualized pulmonary arteries. Normal visualized aortic arch and descending thoracic aorta. Normal visualized thoracic spine. Normal visualized ribs, clavicles, and shoulders. There are no acute findings of the upper abdomen. RAD/Chest 1 View (Portable) IMPRESSION: There are no acute findings. Electronically Signed: Walter Hernandes MD at 18:53 EDT ,
[2023-08-14 18:35] LABS: Bedside Glucose 96 mg/dL (74-106)
[2023-08-14 18:41] VITALS: BP 123/71; BP 133/80; BP 149/84; PULSE 68; PULSE 75; PULSE 81
[2023-08-14 18:42] LABS: Anion Gap 8 (5-15); BUN 15 mg/dL (7-18); BUN/Creat Ratio 17.7 RATIO (10-20); Calcium,Total 8.9 mg/dL (8.5-10.1); Chloride 106 mmol/L (98-107); Creatinine, Serum 0.85 mg/dL (0.55-1.02); EST Glomerular Filtration Rate 81 mL/min (>60); Est Glom Filt Rate - Afr Amer 98 mL/min (>60); Estimated Creatinine Clearance 96.15 ml/min; Glucose 115 mg/dL (74-106); Potassium 3.3 mmol/L (3.5-5.1); Sodium Level 138 mmol/L (136-145); Troponin-I HS < 3 pg/mL (3.0-54.0)
--- NOTE | 2023-08-14 18:43 | ED.VIS.CHEST ---
HPI History of Present Illness Chief Complaint: Syncope Narrative Narrative: 38-year-old female presenting with chest pressure and lightheadedness. She has a history of this in the past, but she states that it usually does not last so long. She states that she does get hot flashes and chills with these episodes. She states that today when it started at 2:30 PM she thought it was going to subside but she sat down and it did not. She states she went and laid down but still feels like she is buzzing. She denies fevers, chills, cough. She has a history of PVCs. Patient has mild nausea. She states she has no history of KS. 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 She also has hypothyroidism but her meds have been unchanged and she had lab work 3 months ago which was normal. PE Risk Factors: Negative for Recent Travel/Surgery, Recent Immobilization, Prior DVT or PE or OCP + Smoking + >/=35 PFSH PFSH Medical History Allergic dermatitis Depression IBS (irritable bowel syndrome) Weight gain PVC's (premature ventricular contractions) Palpitations Polyarthralgia Hypothyroidism History of prolactinoma Home Medications ?Medication ?Instructions ?Recorded ?Last Taken ?Type apple cider vinegar 300 mg tablet 300 mg PO DAILY 07/12/22 Unknown History cholecalciferol (vitamin D3) 25 25 mcg PO DAILY 07/12/22 Unknown History mcg (1,000 unit) capsule folic acid 1 mg tablet 1 mg PO DAILY 07/12/22 Unknown History levothyroxine 25 mcg tablet 25 mcg PO QODAY 07/12/22 Unknown History vitamin B complex (B 1 tab PO DAILY 07/12/22 Unknown History Complex-Vitamin B12 tablet) melatonin 3 mg capsule 3 mg PO HS PRN sleep 10/13/22 Unknown History ondansetron 4 mg disintegrating 4 mg PO Q8H PRN PRN Nausea #14 tabs 08/14/23 Unknown Rx tablet sulfasalazine 500 mg 500 mg PO BID 08/14/23 Unknown History tablet,delayed release Allergy/AdvReac Type Severity Reaction Status Date / Time gluten Allergy Abd Verified 08/14/23 17:52 cramps/diarrhea Family History Mother Hearing loss Grandmother Diabetes Colon cancer PVC (premature ventricular contraction) Grandfather Diabetes Crohn's disease Heart disease Grandmother Alzheimers disease Surgical History H/O section Social History Smoking Status: Former smoker how long ago did patient quit smokin alcohol intake: current substance use type: does not use caffeine: No frequency: daily ROS ROS ED Constitutional Constitutional ED: Reports chills and sweats; Denies fever(s) Eyes Eyes: Denies blurry vision or change in vision ENT ENT ED: Denies ear pain or sore throat Cardiovascular Cardiovascular: Reports chest pain; Denies palpitations or racing heartbeat Respiratory/Chest Respiratory/Chest: Denies cough, dyspnea or sputum Gastrointestinal Gastrointestinal: Reports nausea; Denies abdominal pain, constipation, diarrhea or vomiting Genitourinary Genitourinary ED: Denies dysuria, hematuria or urinary frequency Musculoskeletal Musculoskeletal: Denies arthralgias, myalgias or neck pain Integumentary Denies abscess, Abrasions or rash Neurologic Neurologic: Denies headache(s), paresthesias or weakness Psychiatric Psychiatric: Denies anxiety, depression, suicidal ideation or suicidal thoughts Endocrine Endocrinology: Denies polydipsia or polyuria EXAM Physical Exam Const Vital Signs: 08/14/23 17:49 08/14/23 18:05 08/14/23 18:19 Temperature 97.6 F L Temperature Source Temporal Pulse Rate 74 Pulse Rate [Lying] Pulse Rate [Sitting (for 1 minute prior to obtaining)] Pulse Rate [Standing (for 1 minute prior to obtaining)] Respiratory Rate 15 Respiratory Effort Normal Respiratory Pattern Normal Blood Pressure 129/84 H Blood Pressure [Lying] Blood Pressure [Sitting (for 1 minute prior to obtaining)] Blood Pressure [Standing (for 1 minute prior to obtaining)] Blood Pressure Mean 99 Blood Pressure Mean [Lying] Blood Pressure Mean [Sitting (for 1 minute prior to obtaining)] Blood Pressure Mean [Standing (for 1 minute prior to obtaining)] Pulse Ox 100 Oxygen Delivery Method Room Air Room Air 08/14/23 18:41 08/14/23 20:15 08/14/23 21:18 Temperature 97.6 F L Temperature Source Pulse Rate 81 68 Pulse Rate [Lying] 81 Pulse Rate [Sitting (for 1 minute prior to obtaining)] 75 Pulse Rate [Standing (for 1 minute prior to obtaining)] 68 Respiratory Rate 29 H 14 Respiratory Effort Respiratory Pattern Blood Pressure 114/67 114/66 Blood Pressure [Lying] 123/71 H Blood Pressure [Sitting (for 1 minute prior to obtaining)] 133/80 H Blood Pressure [Standing (for 1 minute prior to obtaining)] 149/84 H Blood Pressure Mean 82 82 Blood Pressure Mean [Lying] 88 Blood Pressure Mean [Sitting (for 1 minute prior to obtaining)] 97 Blood Pressure Mean [Standing (for 1 minute prior to obtaining)] 105 Pulse Ox 99 99 Oxygen Delivery Method Positive well nourished General Appearance ED: NAD LIONEL Reports moist mucous membranes normocephalic and atraumatic Eyes PERRL and EOMs intact bilaterally Chest Wall inspection of chest normal and palpation of chest normal Resp normal respiratory effort and clear to auscultation bilaterally Auscultation: Negative for rales, rhonchi or wheezes Cardio regular rate and regular rhythm MDM MDM MDM Narrative Medical decision making narrative: Patient presenting with chest pressure and near syncopal episode. She states has had these in the past but they usually go away after a few minutes. This 1 has been extended. Differential includes ACS, dysrhythmia, pneumonia, dehydration, anemia, electrolyte abnormalities. PE is considered however patient is PERC negative. CBC was obtained to assess white blood cell count, hemoglobin, platelets. BMP to assess renal function, electrolytes, glucose. High-sensitivity troponin EKG to assess for ischemia/dysrhythmia. Chest x-ray to rule out pneumonia. CBC, BMP within normal limits with exception of a potassium of 3.3. This was repleted orally. Patient was given a liter normal saline after orthostatics were performed and these were negative. High-sensitivity troponin less than 3. Chest x-ray my interpretation shows no acute cardiopulmonary process. Radiologist interprets as agrees. EKG interpreted by myself shows a sinus rhythm at 79 bpm without sign of ischemic change or ectopy. Delta troponin less than 3. Patient did request treatment with Zofran while she was here and she did feel better. She states that her nausea comes in waves. Currently she is pain-free and nausea free. Given that her workup is ultimately within normal limits I recommended close follow-up and she states she has followed up with Dr. Kohler in the past. Return precautions discussed. Impression: 1. Chest pain 2. Near syncope 3. Hypokalemia Lab Data Attestation: I reviewed the patient's lab results. Labs: Laboratory Results - last 24 hr 08/14/23 08/14/23 08/14/23 18:00 18:16 20:13 WBC 8.0 RBC 3.98 L Hgb 12.6 Hct 39.0 MCV 98.0 MCH 31.7 MCHC 32.3 RDW Std Deviation 46.5 H RDW Coeff of Ada 13.1 Plt Count 255 MPV 11.0 Immature Gran % (Auto) 0.300 Neut % (Auto) 58.7 Lymph % (Auto) 28.9 Josephine % (Auto) 8.6 Eos % (Auto) 2.6 Baso % (Auto) 0.9 Absolute Neuts (auto) 4.7 Absolute Lymphs (auto) 2.31 Nucleated RBC % 0 Sodium 138 Potassium 3.3 L Chloride 106 Carbon Dioxide 24.0 Anion Gap 8 BUN 15 Creatinine 0.85 Estim Creat Clear Calc 96.15 Est GFR (MDRD) Af Amer 98 Est GFR (MDRD) Non-Af 81 BUN/Creatinine Ratio 17.7 Glucose 115 H Calcium 8.9 Troponin I High Sens < 3 L < 3 L POC Glucose 96 Radiography Diagnostic Testing: Clinical Impression(s) from Imaging Studies Chest X-Ray 08/14/23 18:20 IMPRESSION: There are no acute findings. Electronically Signed: Walter Hernandes MD at 18:53 EDT Reading Location ID and State: [facility] / [place] , Service support , Discharge Plan Triage Chief Complaint: Syncope ED Provider: Omar Wallace Dx/Rx/DC Orders Instructions: ED Chest Pain, Noncardiac, ED Near-Fainting, Uncertain Cause Prescriptions: New ondansetron 4 mg tablet,disintegrating 4 mg PO Q8H PRN PRN (Reason: Nausea) Qty: 14 0RF No Action levothyroxine 25 mcg tablet 25 mcg PO QODAY Patient Comments: TAKE 1 TABLET BY MOUTH EVERY OTHER DAY cholecalciferol (vitamin D3) 25 mcg (1,000 unit) capsule 25 mcg PO DAILY folic acid 1 mg tablet 1 mg PO DAILY vitamin B complex [B Complex-Vitamin B12] Tablet 1 tab PO DAILY apple cider vinegar 300 mg tablet 300 mg PO DAILY melatonin 3 mg capsule 3 mg PO HS PRN (Reason: sleep) sulfasalazine 500 mg tablet,delayed release (DR/EC) 500 mg PO BID Primary Care Provider: Pat Ceballos Referrals: Pat Ceballos DO [Primary Care Provider] - Print Language: Pashto Disposition Disposition: Home, Self Care Discharge Date/Time: 08/14/23 21:19
[2023-08-14] MEDS: Ondansetron 4 MG/2 ML Vial IV ×2 (18:49→20:21)
[2023-08-14] MEDS: 0.9% Normal Saline (1000mL) 1,000 ML 999 ML IV (18:50)
[2023-08-14] MEDS: Potassium Chloride Oral Tablet 20 MEQ 40 MEQ PO (18:50)
[2023-08-14 20:15] VITALS: BP 114/67; PULSE 81; RESP 29; O2SAT 99
[2023-08-14 20:45] LABS: Troponin-I HS < 3 pg/mL (3.0-54.0)
[2023-08-14 21:18] VITALS: BP 114/66; PULSE 68; RESP 14; TEMP 36.4; O2SAT 99
== END 2023-08-14 21:19 | disposition home or self-care (01) ==
PROVIDERS: Emergency Provider Student in an Organized Health Care Education/Training Program; PCP Internal Medicine; Visit Provider Student in an Organized Health Care Education/Training Program
DX: R07.89 Other chest pain (principal); R42 Dizziness and giddiness; R55 Syncope and collapse; E87.6 Hypokalemia; E03.9 Hypothyroidism, unspecified; I49.3 Ventricular premature depolarization; R11.0 Nausea; Z79.890 Hormone replacement therapy; Z79.899 Other long term (current) drug therapy; Z87.891 Personal history of nicotine dependence
CPT/HCPCS: 71045; 80048; 82962; 84484; 85025; 93005; 96361; 96374; 96376; 99285; J7030; A4216; J2405

== ENCOUNTER → 2023-09-02 | Outpatient (CLI) | payer OTHER, SELFPAY ==
[2023-09-02 16:54] LABS: Absolute Lymphocyte Count 2.33 X10^3/uL (0.83-4.51); Absolute Neutrophil Count 3.5 X10^3/uL (2.0-7.7); Basophil# 0.06 X10^3/uL; Basophil% 0.9 % (0-1); Eosinophil# 0.29 X10^3/uL; Eosinophils% 4.3 % (0-5); Hematocrit 37.1 % (37-47); Hemoglobin 12.1 g/dL (12.0-15.0); Lymphocyte # 2.33 X10^3/ul (0.83-4.51); Lymphocyte % 34.5 % (19-41); Mean Corp Hgb Conc 32.6 g/dL (32-36); Mean Corpuscular Hgb 32.7 pg (27.0-32.0); Mean Corpuscular Volume 100.3 fL (81-99); Mean Platelet Vol. 10.9 fl (6.2-12.0); Monocyte# 0.59 X10^3/uL; Monocyte% 8.7 % (0-10); NRBC Flagged by Analyzer 0 % (0-5); Neutrophil # 3.47 X10^3/uL (2.7-7.7); Neutrophil % 51.3 % (47-70); Platelet Count 270 K/mm3 (150-450); RBC Distribution Width CV 13.1 % (11.6-14.6); RBC Distribution Width SD 48.9 fl (35.1-43.9); White Blood Count 6.8 K/mm3 (4.4-11.0)
[2023-09-02 17:42] LABS: ALB/GLOB Ratio 1.1 RATIO (0.9-2.4); AST(SGOT) 22 U/L (15-37); Alanine Aminotransfer ALT/SGPT 22 U/L (13-56); Albumin, Serum 3.7 g/dL (3.2-5.0); Alkaline Phosphatase 66 U/L (45-117); Anion Gap 9 (5-15); BUN 15 mg/dL (7-18); BUN/Creat Ratio 18.8 RATIO (10-20); Calcium,Total 8.6 mg/dL (8.5-10.1); Chloride 104 mmol/L (98-107); EST Glomerular Filtration Rate 86 mL/min (>60); Est Glom Filt Rate - Afr Amer 104 mL/min (>60); Globulin 3.4 g/dL (2.2-4.2); Glucose 127 mg/dL (74-106); Potassium 3.6 mmol/L (3.5-5.1); Protein, Total 7.1 g/dL (6.4-8.2); Sodium Level 137 mmol/L (136-145)
== END | disposition home or self-care (01) ==
LOC: LAB 16:18
PROVIDERS: PCP Internal Medicine; Referring Provider Internal Medicine Rheumatology; Visit Provider Internal Medicine Rheumatology
DX: M06.4 Inflammatory polyarthropathy (principal); Z79.899 Other long term (current) drug therapy; R76.8 Other specified abnormal immunological findings in serum
CPT/HCPCS: 36415; 80053; 85025

== ENCOUNTER → 2023-10-25 | Outpatient (CLI) | payer OTHER, SELFPAY ==
[2023-10-25 08:59] LABS: Absolute Lymphocyte Count 1.63 X10^3/uL (0.83-4.51); Absolute Neutrophil Count 2.7 X10^3/uL (2.0-7.7); Basophil# 0.05 X10^3/uL; Eosinophil# 0.13 X10^3/uL; Eosinophils% 2.6 % (0-5); Hematocrit 37.6 % (37-47); Hemoglobin 12.2 g/dL (12.0-15.0); Lymphocyte # 1.63 X10^3/ul (0.83-4.51); Lymphocyte % 32.3 % (19-41); Mean Corp Hgb Conc 32.4 g/dL (32-36); Mean Corpuscular Hgb 32.1 pg (27.0-32.0); Mean Corpuscular Volume 98.9 fL (81-99); Mean Platelet Vol. 11.1 fl (6.2-12.0); Monocyte# 0.51 X10^3/uL; Monocyte% 10.1 % (0-10); NRBC Flagged by Analyzer 0 % (0-5); Neutrophil # 2.71 X10^3/uL (2.7-7.7); Neutrophil % 53.6 % (47-70); Platelet Count 262 K/mm3 (150-450); RBC Distribution Width CV 12.9 % (11.6-14.6); RBC Distribution Width SD 46.4 fl (35.1-43.9); White Blood Count 5.1 K/mm3 (4.4-11.0)
[2023-10-25 09:13] LABS: ALB/GLOB Ratio 0.9 RATIO (0.9-2.4); AST(SGOT) 16 U/L (15-37); Alanine Aminotransfer ALT/SGPT 20 U/L (13-56); Albumin, Serum 3.4 g/dL (3.2-5.0); Alkaline Phosphatase 55 U/L (45-117); Anion Gap 5 (5-15); BUN 11 mg/dL (7-18); Calcium,Total 8.4 mg/dL (8.5-10.1); Chloride 108 mmol/L (98-107); Cholesterol 163 mg/dL (200); Creatinine, Serum 0.79 mg/dL (0.55-1.02); EST Glomerular Filtration Rate 88 mL/min (>60); Est Glom Filt Rate - Afr Amer 106 mL/min (>60); Globulin 3.6 g/dL (2.2-4.2); Glucose 100 mg/dL (74-106); High Density Lipoprotein 51 mg/dL; Sodium Level 140 mmol/L (136-145); Thyroid Stim Hormone (TSH) 1.49 uIU/mL (0.358-3.74); Triglycerides 50 mg/dL; Very Low Density Lipoprotein 10 mg/dL (5-40)
== END | disposition home or self-care (01) ==
LOC: LAB 08:24 → PAVLAB 08:33
DX: E03.8 Other specified hypothyroidism (principal); Z13.6 Encounter for screening for cardiovascular disorders
CPT/HCPCS: 36415; 80053; 80061; 84443; 85025

== ENCOUNTER → 2023-11-19 | Outpatient (CLI) | payer OTHER, SELFPAY ==
--- NOTE | 2023-11-19 08:58 | US_ITS ---
INDICATION: GALLBLADDER DISEASE EXAMINATION: Ultrasound US Gallbladder (abdomen limited) TECHNIQUE: Colvin-scale and color Doppler imaging was performed of the abdomen. COMPARISON: FINDINGS: LIVER: There is normal echotexture measuring 16 cm. No focal hepatic lesion. No intrahepatic biliary ductal dilatation. There is no free fluid. GALLBLADDER AND BILIARY TREE: No shadowing gallstone, pericholecystic fluid or gallbladder wall thickening is demonstrated. The proximal common bile duct measures 3 mm, which is within normal limits for the patient''s age. SONOGRAPHIC POWELL''S SIGN: Negative. PANCREAS: No focal abnormality is demonstrated in the pancreas. No pancreatic ductal dilatation. RIGHT KIDNEY: 11.8 x 5.0 x 5.3 cm. The cortex is 16 mm. There is no hydronephrosis. No shadowing calculus, focal lesion, or perinephric collection is demonstrated. VESSELS: Submitted longitudinal images of the intra-abdominal aorta demonstrate no gross abnormalities and are unremarkable. The IVC is patent. US/Gallbladder IMPRESSION: No acute sonographic abnormality is demonstrated in the abdomen. Electronically Signed: Jeovany Khan DO at 23:46 EDT ,
== END | disposition home or self-care (01) ==
LOC: US 08:57
DX: K82.9 Disease of gallbladder, unspecified (principal)
CPT/HCPCS: 76705

== ENCOUNTER 2023-12-01 14:05 | Emergency (ER) | payer OTHER, SELFPAY ==
[2023-12-01 14:06] VITALS: BP 127/78; PULSE 98; RESP 20; TEMP 36.6; O2SAT 98; BMI 31.4
--- NOTE | 2023-12-01 14:09 | RAD_ITS ---
STUDY: X-RAY CHEST REASON FOR EXAM: Female, 38 years old. Hemoptysis with cough TECHNIQUE: PA and lateral views of the chest. COMPARISON: Comparison is made with prior study dated August 14, 2023. FINDINGS: The lungs are clear and expanded. There is no demonstrated pleural abnormality. Normal size heart. Normal mediastinum and kylah. Normal visualized pulmonary arteries. Normal visualized aortic arch and descending thoracic aorta. Normal visualized thoracic spine. Normal visualized ribs, clavicles, and shoulders. There is no demonstrated abnormality of the visualized soft tissue structures of the upper abdomen. RAD/Chest PA and Lateral IMPRESSION: Normal x-ray examination of the chest. Electronically Signed: Marin Mckeon MD at 14:37 EDT ,
--- NOTE | 2023-12-01 14:15 | EDS_ITS ---
HPI History of Present Illness Chief Complaint: Cough Detail of Chief Complaint: Cough with hemoptysis Informant: patient Onset/Context/Timing Onset: Days (Onset of cough November 25) Context: Sudden Onset Timing: Intermittent Quality: Patient had 1 episode of hemoptysis on Tuesday, Tuesday and today Location: Respiratory Current Severity: Mild Maximum Severity: Mild Worsened by: Nothing Relieved by: Nothing Associated Symptoms Associated Symptoms: Cough with intermittent hemoptysis Narrative Narrative: Patient is a 38-year-old female. She has history of RA. She also has history of hypothyroidism. Patient was diagnosed on Tuesday with bronchitis. She denies fever, chills nitrous. She presently denies rhinorrhea postnasal ada inage sore throat. Her cough is essentially nonproductive. The first episode of hemoptysis occurred on Tuesday after a significant coughing spell. She has no history of VTE. She has no risk factors for VTE. She denies chest pain of any type including pleuritic. She denies leg pain, swelling discoloration. Prior similar symptoms: Yes Recent Illness/Hospitalization: Yes [facility] Medical History Allergic dermatitis Depression IBS (irritable bowel syndrome) Weight gain PVC's (premature ventricular contractions) Palpitations Polyarthralgia Hypothyroidism History of prolactinoma Home Medications ?Medication ?Instructions ?Recorded ?Last Taken ?Type apple cider vinegar 300 mg tablet 300 mg PO DAILY 07/12/22 Unknown History cholecalciferol (vitamin D3) 25 25 mcg PO DAILY 07/12/22 Unknown History mcg (1,000 unit) capsule folic acid 1 mg tablet 1 mg PO DAILY 07/12/22 Unknown History levothyroxine 25 mcg tablet 25 mcg PO QODAY 07/12/22 Unknown History vitamin B complex (B 1 tab PO DAILY 07/12/22 Unknown History Complex-Vitamin B12 tablet) melatonin 3 mg capsule 3 mg PO HS PRN sleep 10/13/22 Unknown History ondansetron 4 mg disintegrating 4 mg PO Q8H PRN PRN Nausea #14 tabs 08/14/23 Unknown Rx tablet sulfasalazine 500 mg 500 mg PO BID 08/14/23 Unknown History tablet,delayed release Allergy/AdvReac Type Severity Reaction Status Date / Time gluten Allergy Abd Verified 08/14/23 17:52 cramps/diarrhea Family History Mother Hearing loss Grandmother Diabetes Colon cancer PVC (premature ventricular contraction) Grandfather Diabetes Crohn's disease Heart disease Grandmother Alzheimers disease Surgical History H/O section Social History Smoking Status: Former smoker how long ago did patient quit smokin alcohol intake: current substance use type: does not use caffeine: No frequency: daily ROS ROS ED Constitutional Constitutional ED: Denies chills, fever(s) or subjective Eyes Eyes: Denies blurry vision or change in vision ENT ENT ED: Denies ear pain or sore throat Cardiovascular Cardiovascular: Denies chest pain, orthopnea, palpitations, paroxysmal nocturnal dyspnea or racing heartbeat Respiratory/Chest Respiratory/Chest: Reports cough; Denies dyspnea, dyspnea on exertion, ortho pnea, paroxysmal nocturnal dyspnea or sputum Gastrointestinal Gastrointestinal: Denies abdominal pain, nausea or vomiting Integumentary Denies rash Hematologic/Lymphatic Hematologic/Lymphatic: Reports systems reviewed and no addt'l complaints, except as documented EXAM Physical Exam Const Vital Signs: 12/01/23 14:06 Temperature 97.9 F Temperature Source Temporal Pulse Rate 98 Respiratory Rate 20 H Blood Pressure 127/78 H Blood Pressure Mean 94 Pulse Ox 98 Oxygen Delivery Method Room Air Positive well nourished and well developed General Appearance ED: well developed and NAD; Negative for cyanotic, diaphoretic or pallor HEENT Reports moist mucous membranes HEENT Narrative: Ears normal. Nares patent. Posterior pharynx is normal. Eyes PERRL and EOMs intact bilaterally General Eye ED: Negative for pale conjunctiva or scleral icterus Resp normal respiratory effort and clear to auscultation bilaterally Cardio regular rate, S1 normal heart sound, S2 normal heart sound and no murmurs Extremity normal to inspection Extremity Narrative: There is no asymmetry, swelling, discoloration, leg vein distention, palpable cords or tenderness along the distribution of the deep venous system. Neuro oriented x3, CN's II-XII intact bilaterally and no sensory deficits noted Sensorium / Orientation: alert Motor Exam: strength 5/5 throughout Psych mental status grossly normal Skin no rashes or lesions noted, no wounds and skin turgor normal General Skin Exam: elasticity normal; Negative for jaundice or pallor MDM MDM MDM Narrative Medical decision making narrative: With history of recent bronchitis cough and now hemoptysis with coughing suspect patient ruptured a blood vessel. Chest x-ray was obtained to assess for evidence of infiltrate. Patient's history and physical exam is not consistent with pulmonary embolus. Therefore D-dimer and advanced imaging was not ordered. Patient initially went to the urgent care. She was told she had to come to the emergency department. Radiography Chest X-Ray - ED: 2 View, Read by ED Physician (Independent reviewed interpreted by me as negative. Cardiac silhouette size normal. Lung parenchyma normal. [place] is normal. [place] structures are normal.), Normal, Heart, Lungs, Mediastinum and Bony Structures Treatment and Re-Evaluation :: Patient has hemoptysis due to upper respiratory infection. Will discharge to home with appropriate home-going instructions. Discharge Plan Triage Chief Complaint: Cough ED Provider: Beck Richardson Dx/Rx/DC Orders Clinical Impression: Cough with hemoptysis, Acute upper respiratory infection Instructions: ED Hemoptysis Prescriptions: No Action levothyroxine 25 mcg tablet 25 mcg PO QODAY Patient Comments: TAKE 1 TABLET BY MOUTH EVERY OTHER DAY cholecalciferol (vitamin D3) 25 mcg (1,000 unit) capsule 25 mcg PO DAILY folic acid 1 mg tablet 1 mg PO DAILY vitamin B complex [B Complex-Vitamin B12] Tablet 1 tab PO DAILY apple cider vinegar 300 mg tablet 300 mg PO DAILY melatonin 3 mg capsule 3 mg PO HS PRN (Reason: sleep) sulfasalazine 500 mg tablet,delayed release (DR/EC) 500 mg PO BID ondansetron 4 mg tablet,disintegrating 4 mg PO Q8H PRN PRN (Reason: Nausea) Qty: 14 0RF Primary Care Provider: Nona Moreno Referrals: Nona Moreno, [facility] [Primary Care Provider] - 1 Week if not improving Print Language: Indonesian Disposition Disposition: Home, Self Care
[2023-12-01 14:32] VITALS: BP 127/78; PULSE 98; RESP 20; TEMP 36.6; O2SAT 98; O2SAT 99
== END 2023-12-01 14:39 | disposition home or self-care (01) ==
LOC: ED 14:39
PROVIDERS: Emergency Provider Emergency Medicine; Visit Provider Emergency Medicine
DX: J06.9 Acute upper respiratory infection, unspecified (principal); M06.9 Rheumatoid arthritis, unspecified; Z87.891 Personal history of nicotine dependence; R04.2 Hemoptysis; E03.9 Hypothyroidism, unspecified; Z79.899 Other long term (current) drug therapy; Z79.890 Hormone replacement therapy
CPT/HCPCS: 71046; 99282

== ENCOUNTER → 2023-12-02 | Outpatient (CLI) | payer OTHER, SELFPAY ==
[2023-12-02 17:15] LABS: Absolute Lymphocyte Count 3.13 X10^3/uL (0.83-4.51); Absolute Neutrophil Count 4.1 X10^3/uL (2.0-7.7); Basophil# 0.08 X10^3/uL; Eosinophil# 0.18 X10^3/uL; Eosinophils% 2.2 % (0-5); Hematocrit 35.9 % (37-47); Hemoglobin 11.4 g/dL (12.0-15.0); Lymphocyte # 3.13 X10^3/ul (0.83-4.51); Lymphocyte % 37.7 % (19-41); Mean Corp Hgb Conc 31.8 g/dL (32-36); Mean Corpuscular Hgb 31.6 pg (27.0-32.0); Mean Corpuscular Volume 99.4 fL (81-99); Monocyte# 0.78 X10^3/uL; Monocyte% 9.4 % (0-10); NRBC Flagged by Analyzer 0 % (0-5); Neutrophil # 4.08 X10^3/uL (2.7-7.7); Neutrophil % 49.1 % (47-70); Platelet Count 305 K/mm3 (150-450); RBC Distribution Width CV 12.6 % (11.6-14.6); RBC Distribution Width SD 46.1 fl (35.1-43.9); Red Blood Count 3.61 M/mm3 (4.2-5.4); White Blood Count 8.3 K/mm3 (4.4-11.0)
[2023-12-02 19:08] LABS: ALB/GLOB Ratio 0.9 RATIO (0.9-2.4); AST(SGOT) 19 U/L (15-37); Alanine Aminotransfer ALT/SGPT 31 U/L (13-56); Albumin, Serum 3.3 g/dL (3.2-5.0); Alkaline Phosphatase 57 U/L (45-117); Anion Gap 9 (5-15); BUN 16 mg/dL (7-18); BUN/Creat Ratio 19.1 RATIO (10-20); Calcium,Total 9.1 mg/dL (8.5-10.1); Chloride 107 mmol/L (98-107); Creatinine, Serum 0.84 mg/dL (0.55-1.02); EST Glomerular Filtration Rate 81 mL/min (>60); Est Glom Filt Rate - Afr Amer 99 mL/min (>60); Globulin 3.8 g/dL (2.2-4.2); Glucose 118 mg/dL (74-106); Potassium 3.7 mmol/L (3.5-5.1); Protein, Total 7.1 g/dL (6.4-8.2); Sodium Level 141 mmol/L (136-145)
== END | disposition home or self-care (01) ==
LOC: LAB 16:50
PROVIDERS: Referring Provider Internal Medicine Rheumatology; Visit Provider Internal Medicine Rheumatology
DX: M06.4 Inflammatory polyarthropathy (principal); R76.8 Other specified abnormal immunological findings in serum; Z79.899 Other long term (current) drug therapy
CPT/HCPCS: 36415; 80053; 85025

== ENCOUNTER → 2023-12-19 | Outpatient (CLI) | payer OTHER, SELFPAY ==
--- NOTE | 2023-12-19 09:39 | NM_ITS ---
CLINICAL: 38-year-old female with history of gallbladder disease. RADIONUCLIDE HEPATOBILIARY SCINTIGRAPHY COMPARISON: Gallbladder ultrasound report 11/19/2023 FINDINGS: Following the intravenous administration of 6.0 mCi of 99m Tc Mebrofenin, hepatobiliary images reveal: 1. Relatively prompt and homogeneous radiopharmaceutical concentration is noted by a normal sized liver. No parenchymal defects are identified. 2. Gallbladder activity is identified at 15 minutes post radiopharmaceutical administration. 3. Small intestinal tract is observed at 45 minutes following tracer injection. 4. Washout of the radiopharmaceutical by the hepatic parenchyma appears qualitatively normal. Cholecystokinin (0.02 ug/kg) was administered intravenously over a 30-minute period. The post CCK gallbladder ejection fraction calculated at 20 minutes following Cholecystokinin administration was noted to be 18.0 % (normal greater than 35%). NM/Hepatobilliary Img w/Pharm Int IMPRESSION: 1. ABNORMAL 99m Tc Mebrofenin hepatobiliary imaging examination with Cholecystokinin. A. A gallbladder ejection fraction calculated to be less than 35% following the administration of Cholecystokinin is consistent with the presence of functional hepatobiliary disease (gallbladder and/or sphincter of Oddi dyskinesia) and/or organic hepatobiliary disease (chronic acalculous cholecystitis and/or cystic duct syndrome) in patients with intermediate to high pretest probabilities of hepatobiliary illness. (Xenia Garza et al, Journal of Nuclear Medicine 32:1695, 1991). Electronically Signed: Blaine Benítez DO at 22:33 EDT ,
== END | disposition home or self-care (01) ==
LOC: NM 09:38
DX: K82.9 Disease of gallbladder, unspecified (principal)
CPT/HCPCS: 78227; A9537; J2805

== ENCOUNTER → 2024-03-30 | Outpatient (CLI) | payer OTHER, SELFPAY ==
[2024-03-30 08:39] LABS: Absolute Lymphocyte Count 1.81 X10^3/uL (0.83-4.51); Absolute Neutrophil Count 3.5 X10^3/uL (2.0-7.7); Basophil# 0.06 X10^3/uL; Eosinophil# 0.19 X10^3/uL; Hematocrit 37.3 % (37-47); Hemoglobin 12.3 g/dL (12.0-15.0); Lymphocyte # 1.81 X10^3/ul (0.83-4.51); Lymphocyte % 29.1 % (19-41); Mean Corpuscular Hgb 31.9 pg (27.0-32.0); Mean Corpuscular Volume 96.6 fL (81-99); Mean Platelet Vol. 11.5 fl (6.2-12.0); Monocyte# 0.65 X10^3/uL; Monocyte% 10.4 % (0-10); NRBC Flagged by Analyzer 0 % (0-5); Neutrophil % 56.2 % (47-70); Platelet Count 257 K/mm3 (150-450); RBC Distribution Width CV 13.1 % (11.6-14.6); RBC Distribution Width SD 46.8 fl (35.1-43.9); Red Blood Count 3.86 M/mm3 (4.2-5.4); White Blood Count 6.2 K/mm3 (4.4-11.0)
[2024-03-30 09:04] LABS: AST(SGOT) 13 U/L (15-37); Alanine Aminotransfer ALT/SGPT 21 U/L (13-56); Albumin, Serum 3.4 g/dL (3.2-5.0); Alkaline Phosphatase 53 U/L (45-117); Anion Gap 5 (5-15); BUN 15 mg/dL (7-18); BUN/Creat Ratio 19.8 RATIO (10-20); Calcium,Total 8.5 mg/dL (8.5-10.1); Chloride 105 mmol/L (98-107); Cholesterol 153 mg/dL (200); Creatinine, Serum 0.76 mg/dL (0.55-1.02); EST Glomerular Filtration Rate 92 mL/min (>60); Est Glom Filt Rate - Afr Amer 111 mL/min (>60); Globulin 3.3 g/dL (2.2-4.2); Glucose 96 mg/dL (74-106); High Density Lipoprotein 57 mg/dL; Potassium 3.6 mmol/L (3.5-5.1); Protein, Total 6.7 g/dL (6.4-8.2); Sodium Level 136 mmol/L (136-145); T4 Free Direct 1.21 ng/dL (0.76-1.46); Triglycerides 65 mg/dL; Very Low Density Lipoprotein 13 mg/dL (5-40)
== END | disposition home or self-care (01) ==
DX: Z13.6 Encounter for screening for cardiovascular disorders (principal); E03.8 Other specified hypothyroidism
CPT/HCPCS: 36415; 80053; 80061; 84439; 84443; 85025

== ENCOUNTER → 2024-04-13 | Outpatient (CLI) | payer OTHER, SELFPAY ==
[2024-04-13 19:00] LABS: Absolute Lymphocyte Count 2.77 X10^3/uL (0.83-4.51); Absolute Neutrophil Count 4.5 X10^3/uL (2.0-7.7); Basophil# 0.06 X10^3/uL; Basophil% 0.7 % (0-1); Eosinophils% 2.4 % (0-5); Hematocrit 36.1 % (37-47); Hemoglobin 11.9 g/dL (12.0-15.0); Lymphocyte # 2.77 X10^3/ul (0.83-4.51); Lymphocyte % 33.3 % (19-41); Mean Corpuscular Hgb 31.7 pg (27.0-32.0); Mean Corpuscular Volume 96.3 fL (81-99); Monocyte# 0.75 X10^3/uL; NRBC Flagged by Analyzer 0 % (0-5); Neutrophil # 4.51 X10^3/uL (2.7-7.7); Neutrophil % 54.4 % (47-70); Platelet Count 279 K/mm3 (150-450); RBC Distribution Width CV 13.5 % (11.6-14.6); RBC Distribution Width SD 48.2 fl (35.1-43.9); Red Blood Count 3.75 M/mm3 (4.2-5.4); White Blood Count 8.3 K/mm3 (4.4-11.0)
[2024-04-13 19:20] LABS: AST(SGOT) 10 U/L (15-37); Alanine Aminotransfer ALT/SGPT 21 U/L (13-56); Albumin, Serum 3.7 g/dL (3.2-5.0); Alkaline Phosphatase 57 U/L (45-117); Anion Gap 7 (5-15); BUN 17 mg/dL (7-18); BUN/Creat Ratio 19.6 RATIO (10-20); Calcium,Total 9.2 mg/dL (8.5-10.1); Chloride 109 mmol/L (98-107); Creatinine, Serum 0.87 mg/dL (0.55-1.02); EST Glomerular Filtration Rate 78 mL/min (>60); Est Glom Filt Rate - Afr Amer 95 mL/min (>60); Globulin 3.7 g/dL (2.2-4.2); Glucose 90 mg/dL (74-106); Potassium 3.9 mmol/L (3.5-5.1); Protein, Total 7.4 g/dL (6.4-8.2); Sodium Level 139 mmol/L (136-145)
== END | disposition home or self-care (01) ==
LOC: LAB 04-14 06:54 → LABSPEC 04-14 06:55 → LAB 04-16 16:45
PROVIDERS: Referring Provider Internal Medicine Rheumatology; Visit Provider Internal Medicine Rheumatology
DX: M06.4 Inflammatory polyarthropathy (principal); R76.8 Other specified abnormal immunological findings in serum; R51.9 Headache, unspecified; Z79.899 Other long term (current) drug therapy
CPT/HCPCS: 36415; 80053; 85025

== ENCOUNTER → 2024-04-30 | Outpatient (CLI) | payer OTHER, SELFPAY ==
--- NOTE | 2024-04-30 09:23 | BI_ITS ---
PROCEDURE: DIAG MAMM W/CAD, BILAT REASON FOR EXAM: Right breast lump. TECHNIQUE: Bilateral diagnostic digital breast tomosynthesis with 2D and 3D images. Computer aided detection. COMPARISON: None. FINDINGS: The breasts are extremely dense which lowers the sensitivity of mammography. No mass lesion is seen. Correlation with ultrasound is recommended. BI/DIAG MAMM W/CAD, BILAT IMPRESSION: BI-RADS 0: INCOMPLETE - NEED ADDITIONAL IMAGING EVALUATION. Follow-up code: Ultrasound Recommended Reading Location: [facility]
--- NOTE | 2024-04-30 09:23 | US_ITS ---
PROCEDURE: BREAST LIMITED UNILATERAL REASON FOR EXAM: Right breast lumps. TECHNIQUE: Targeted bilateral breast ultrasound. COMPARISON: Comparison is made with prior mammogram dated April 30, 2024. FINDINGS: RIGHT: Right breast ultrasound was targeted to the mid medial and lateral aspects of the breast.. The breast tissue appears sonographically normal. There is a 3 mm x 3 mm x 3 mm cyst at the 9 o'clock position of the breast at 2 cm from the nipple. A similar-appearing cyst measuring 7 mm x 6 mm x 4 mm is seen at the 4 o'clock position of the breast at 2 cm from the nipple. Several tiny cysts are also seen in the 9 o'clock region. Dilated ducts. US/Breast Limited Unilateral IMPRESSION: Small cysts are seen as described. Follow-up code: Routine Follow-up Reading Location: [id number]
== END | disposition home or self-care (01) ==
LOC: OPBI 09:19
PROVIDERS: Referring Provider Registered Nurse; Visit Provider Registered Nurse
DX: N63.14 Unspecified lump in the right breast, lower inner quadrant (principal); N63.15 Unspecified lump in the right breast, overlapping quadrants
CPT/HCPCS: 76642; 77062; 77066; G0279

== ENCOUNTER → 2024-06-04 | Outpatient (CLI) | payer OTHER, SELFPAY ==
[2024-06-04 09:47] LABS: Absolute Lymphocyte Count 1.91 X10^3/uL (0.83-4.51); Absolute Neutrophil Count 2.7 X10^3/uL (2.0-7.7); Basophil# 0.06 X10^3/uL; Basophil% 1.1 % (0-1); Eosinophil# 0.18 X10^3/uL; Eosinophils% 3.3 % (0-5); Hemoglobin 12.7 g/dL (12.0-15.0); Lymphocyte # 1.91 X10^3/ul (0.83-4.51); Lymphocyte % 34.9 % (19-41); Mean Corp Hgb Conc 33.4 g/dL (32-36); Mean Corpuscular Hgb 31.8 pg (27.0-32.0); Mean Corpuscular Volume 95.2 fL (81-99); Mean Platelet Vol. 11.5 fl (6.2-12.0); Monocyte# 0.64 X10^3/uL; Monocyte% 11.7 % (0-10); NRBC Flagged by Analyzer 0 % (0-5); Neutrophil # 2.67 X10^3/uL (2.7-7.7); Neutrophil % 48.8 % (47-70); Platelet Count 235 K/mm3 (150-450); RBC Distribution Width CV 12.9 % (11.6-14.6); RBC Distribution Width SD 45.4 fl (35.1-43.9); Red Blood Count 3.99 M/mm3 (4.2-5.4); White Blood Count 5.5 K/mm3 (4.4-11.0)
[2024-06-04 13:08] LABS: Albumin, Serum 4.2 g/dL (3.5-5.0); BUN 13 mg/dL (4-19); BUN/Creat Ratio 14.8 RATIO (10-20); Creatinine, Serum 0.85 mg/dL (0.70-1.20); EST Glomerular Filtration Rate 90 (>60); Globulin 2.9 g/dL (2.2-4.2); Glucose 105 mg/dL (70-99); Protein, Total 7.1 g/dL (5.9-8.4)
[2024-06-04 13:09] LABS: ALB/GLOB Ratio 1.5 RATIO (0.9-2.4); AST(SGOT) 21 U/L (<=31); Alanine Aminotransfer ALT/SGPT 19 U/L (<=34); Alkaline Phosphatase 51 U/L (35-104); Anion Gap 11 (5-15); Calcium,Total 9.3 mg/dL (7.6-11.0); Chloride 105 mmol/L (98-108); Potassium 4.1 mmol/L (3.3-5.1); Sodium Level 136 mmol/L (133-145); Total Bilirubin 0.27 mg/dL (0.00-1.30)
[2024-06-05 04:07] LABS: PROLACTIN 23.8 ng/mL (4.8-33.4)
== END | disposition home or self-care (01) ==
LOC: LABSPEC 09:21
PROVIDERS: Registered Nurse; Referring Provider Internal Medicine Rheumatology; Visit Provider Internal Medicine Rheumatology
DX: M06.4 Inflammatory polyarthropathy (principal); R76.8 Other specified abnormal immunological findings in serum; Z79.899 Other long term (current) drug therapy
CPT/HCPCS: 36415; 80053; 84146; 85025

== ENCOUNTER 2024-07-05 06:01 | Day surgery (SDC) | payer OTHER, SELFPAY ==
--- NOTE | 2024-07-03 08:40 | EKG12_ITS ---
Test Reason : PREOP Blood Pressure : */* mmHG Vent. Rate : 71 BPM Atrial Rate : 71 BPM P-R Int : 160 ms QRS Dur : 74 ms QT Int : 398 ms P-R-T Axes : 39 57 55 degrees QTcB Int : 432 ms Normal sinus rhythm Normal ECG Confirmed by Juan Antonio Handley ([id number]), news videotape editor JEREMIAH DECKER ([id number]) on 07/03/2024 11:22:54 AM Referred By: DARRYL Confirmed By: Juan Antonio aHndley
--- NOTE | 2024-07-03 14:45 | PAT.ANE_ITS ---
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 When Was Last Pacemaker Check QUESTION #4 FULL TEXT: You/Your Family Experience fever (hyperthermia) with Anesthesia Last Oral Intake Last Oral intake: Last Oral Intake NPO since Meds taken in AM with sips of water? 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 Has anyone observed you stop No 07/03/24 11:37 breathing during sleep? STOP Results Negative 07/03/24 11:37 QUESTION #5 FULL TEXT : Do you snore loudly (louder than talking or can be heard through closed doors)? 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 Specify any problems Hx of Preganancy in last 3 No 07/03/24 11:37 Months Nurse Filling Out Transfusion DSCHRIBER 07/03/24 11:37 & Questions: Date: 07/03/24 07/03/24 11:37 Time: 11:39 07/03/24 11:37 Patient unable to answer at this time (ie. 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 coach Hx Now No 07/03/24 11:37 Gestational Age (in weeks): EDC: Hx Hx Para Hx Section SAB No 07/03/24 11:37 PFSH Medical History (Updated 07/03/24 @ 11:47 by Estephanie Altman) Anxiety Rheumatoid arthritis Back pain Syncope Gastric reflux Shortness of breath on exertion Leg cramps History of edema History of irregular heartbeat Wears glasses Alcohol use Anemia Migraine headache Dietary restriction History of IBS Former smoker History of echocardiogram Cardiology follow-up encounter Allergic dermatitis Depression PVC's (premature ventricular contractions) Palpitations Polyarthralgia Hypothyroidism History of prolactinoma Home Medications ?Medication ?Instructions ?Recorded ?Last Taken ?Type apple cider vinegar 300 mg tablet 300 mg PO DAILY 06/20 07/11 Unknown History cholecalciferol (vitamin D3) 25 25 mcg PO DAILY Unknown History mcg (1,000 unit) capsule folic acid 1 mg tablet 1 mg PO DAILY 07/12/22 Unkno wn History levothyroxine 25 mcg tablet 25 mcg PO QODAY 07/12/22 U nknown History vitamin B complex (B 1 tab PO DAILY 07/12/22 Unkn own History Complex-Vitamin B12 tablet) melatonin 3 mg capsule 3 mg PO HS PRN sleep 3 Unknown History acetaminophen 325 mg tablet 650 mg PO Q4H PRN pain Unknown History (Tylenol) Allergy/AdvReac Type Severity Reaction Status Date / Time gluten Allergy Abd Verified 07/03/24 11:36 cramps/diarrhea Family History Mother Hearing loss Grandmother Diabetes Colon cancer PVC (premature ventricular contraction) Grandfather Diabetes Crohn's disease Heart disease Grandmother Alzheimers disease Surgical History H/O section Social History current occupation: [employer] Smoking Status: Former smoker how long ago did patient quit smokin alcohol intake: current substance use type: does not use caffeine: No frequency: daily Audit: Pertinent Findings Pertinent Findings EKG Perinent findings: 07/03/2024. Normal sinus rhythm. Echo (EF%) pertinent findings: October 20, 2022. Ejection fraction 60%. PA systolic pressure is 20 mmHg. No aortic stenosis noted. Consult pertinent findings: October 13, 2022. Dr. eKrns. 1. [id number] does have premature ventricular complexes. Likely benign. Check echo (see above). Patient is to start taking oral magnesium. Additional pertinent findings: Holter monitor. July 28 through 2022. Observed rhythms are sinus bradycardia to sinus tachycardia. PVC burden is less than 0.01%. No atrial fibrillation, atrial flutter, sinus pauses or AV block. 13 patient triggered events correlate with sinus rhythm. Recommendation Anesthesia Recommendation Anesthesia recommendation: OPTIMIZED for anesthesia
[2024-07-05] VITALS (14 sets, daily range): BP systolic 107–130; BP diastolic 50–82; PULSE 59–100; RESP 14–18; TEMP 36.3–36.9; O2SAT 94–100; BMI 29.9
--- NOTE | 2024-07-05 06:08 | HP.PCM_ITS ---
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 Required: No Is patient in pain?: Yes (right ribs and ruq abd) Allergies gluten Allergy (Verified 01/13/24 13:57) Abd cramps/diarrhea Medications ?Medication ?Instructions ?Recorded ?Confirmed ?Type apple cider vinegar 300 mg tablet 300 mg PO DAILY 07/12/22 08/14/23 History cholecalciferol (vitamin D3) 25 25 mcg PO DAILY 07/12/22 08/14/23 History mcg (1,000 unit) capsule folic acid 1 mg tablet 1 mg PO DAILY 07/12/22 08/14/23 History levothyroxine 25 mcg tablet 25 mcg PO QODAY 07/12/22 01/13/24 History vitamin B complex (B 1 tab PO DAILY 07/12/22 01/13/24 History Complex-Vitamin B12 tablet) melatonin 3 mg capsule 3 mg PO HS PRN sleep 10/13/22 01/13/24 History ondansetron 4 mg disintegrating 4 mg PO Q8H PRN PRN Nausea #14 tabs 08/14/23 01/13/24 Rx tablet Have you fallen in the past year?: No PFSH Medical History Allergic dermatitis Depression IBS (irritable bowel syndrome) Weight gain PVC's (premature ventricular contractions) Palpitations Polyarthralgia Hypothyroidism History of prolactinoma Surgical History H/O section Family History Mother Hearing lossGrandmother Diabetes Colon cancer PVC (premature ventricular contraction)Grandfather Diabetes Crohn's disease Heart diseaseGrandmother Alzheimers disease Social History Smoking Status: Former smoker how long ago did patient quit smokin alcohol intake: current substance use type: does not use caffeine: No frequency: daily HPI HPI HPI: Patient is a 38-year-old female here for right upper quadrant pain. She says has been going on for several years. She had a HIDA back several years ago that showed an ejection fraction of 12% and they wanted to take her gallbladder out but she did not have the time or money to have surgery. She says that it hurts really badly when she eats unhealthy food. She also reports that it hurt really badly after the CCK injection during the HIDA. ROS General General: Yes weight change; No appetite, fatigue, colon cancer, breast cancer or weakness HEENT HEENT: No difficulty swallowing, eye injury, eye surgery, swollen glands or hoarseness Endo Endocrine: Yes thyroid disease; No diabetes mellitus, thyroid cancer, Hair loss, heat intolerance or cold intolerance Skin Skin: No rash or changing moles Breast Breast: No left breast lump, right breast lump, nipple discharge, breast pain, abnormal mammogram, abnormal US or breast enlargement Musc Musculoskeletal: Yes back problems and rheumatoid arthritis; No arthritis, gout or joint pain Cardio Cardiovascular: Yes murmur; No pacemaker, heart disease, atrial fibrillation, high blood pressure, heart attack, heart stent, palpitations, shortness of breat with exertion or chest pain Psych Psychiatric: No depression, anxiety or hearing voices Resp Respiratory: No shortness of breath, No sleep apnea, No cough, No COPD, No asthma, No emphysema and No wheezing Gastro Gastrointestinal: Yes abdominal pain, Yes nausea or vomiting, No diarrhea, Yes constipation, No blood in stool, No acid reflux, No hemorrhoids, No ulcers, Yes gallbladder problem and No black,tarry stools Santosh Hematologic: No blood thinners, No blood disorders, No bleeding, Yes anemia and No blood clots Neuro Neurologic: No system reviewed and no additional complaints, except as documented, No as per HPI, No abnormal gait, No abnormal hearing, No abnormal movements, No abnormal speech, No behavioral changes, No burning sensations, No confusion, No convulsions, No disequilibrium, No dizziness, No localized weakness, No frequent falls, No headache(s), No lack of coordination, No loss of vision, No memory loss, No numbness, No other visual disturbances, No radicular pain, No restless legs, No sensory deficit, No syncope, No tingling, No tremor(s), No weakness and No other Exam Const General: cooperative Orientation: alert and oriented x3 HENMT Head: normal to inspection Neck Neck: normal visual inspection and full ROM Chest Chest palpation & inspection: normal inspection of the chest Resp Effort & Inspection: normal respiratory effort Auscultation: clear to auscultation bilaterally Cardio Rate: regular rate Rhythm: regular rhythm GI Inspection: non-distended Palpation: soft and nontender Skin General: no rashes or lesions noted Neuro General: patient alert and patient oriented x3 Extrem General: full ROM Psych Appearance: grossly normal Mental Status: mental status grossly normal Assessment and Plan Assessment and Plan (1) Biliary dyskinesia: Status: Acute Plan: I discussed the procedure in detail with the patient. I discussed the risks, benefits, and alternatives of the procedure. I discussed the risks including but not limited to bleeding, infection, injury to surrounding organs such as the liver, bile duct, bowels. I did discuss the possibility of having to convert to an open procedure as well as the possibility that if any injuries occurred this may necessitate further surgery at a tertiary care center. Christian Hollins MD Pager: [facility] [address] [place] [address], [address] [place] [address] Office: I have seen the patient and examined and reviewed the H&P. There are no clinical changes
[2024-07-05 06:32] LABS: Internal QC Validated? YES +Cl - CLEAR BKGD; Pregnancy, Urine Negative Negative
[2024-07-05] MEDS: 0.9% Normal Saline (1000mL) 1,000 ML 15 ML IV ×2 (06:42→08:50)
--- NOTE | 2024-07-05 07:01 | PCM.PRE.AN2 ---
ASA Classification* ASA Classification ASA Classification: 2 Assessment & Plan Anesthesia* Anesthesia Assessment Anesthesia Assessment: Discussed sedation and/or anesthesia options, risks, benefits, and alternatives with patient/parents/legal guardian/POA. Questions invited. The patient/parents/legal guardian/POA seems to understand and agrees to proceed with anesthesia plan. Reviewed the physical assessment, medical history, allergy history and patient home medications list prior to surgery/procedure/anesthetic and documented any changes. Performed airway and anesthesia risk assessments. Anesthesia Type Anesthesia Type: General History Source History Obtained from:: Patient and Chart Anesthesia Focused Assessment* Temperature: 98.0 F Pulse Rate: 85 Blood Pressure: 120/79 Respiratory Rate: 16 Pulse Ox: 100 Oxygen Delivery Method: Room Air Airway Assessment Mouth opens: >3 cm Mallampati Score: II Teeth Condition: Caps/Crowns (Patient has 1 right lower crown on a molar. It is tight.) Neck Range of motion (ROM): Full ROM Focused Labs Anesthesia Preop lab: CBC WBC 5.5 K/mm3 (4.4-11.0) 06/04/24 09:24 06/04/24 RBC 3.99 M/mm3 (4.2-5.4) L 06/04/24 09:24 06/04/24 Hgb 12.7 g/dL (12.0-15.0) 06/04/24 09:24 06/04/24 Hct 38.0 % (37-47) 06/04/24 09:24 06/04/24 Plt Count 235 K/mm3 (150-450) 06/04/24 09:24 06/04/24 CHEMISTRY Potassium 4.1 mmol/L (3.3-5.1) 06/04/24 09:24 06/04/24 Sodium 136 mmol/L (133-145) 06/04/24 09:24 06/04/24 BUN 13 mg/dL (4-19) 06/04/24 09:24 06/04/24 Creatinine 0.85 mg/dL (0.70-1.20) 06/04/24 09:24 06/04/24 Glucose 105 mg/dL (70-99) H 06/04/24 09:24 06/04/24 POC Glucose 96 mg/dL (74-106) 08/14/23 18:16 08/14/23 TSH 1.860 uIU/mL (0.300-4.200) 07/04/24 08:34 07/04/24 COAG Urine Test Negative Negative 07/05/24 06:19 07/05/24 Pre-Assessment Diagnosis/Proposed Procedure Planned Operative Procedure(s): LAP CHOLEY WITH GRAMS Anesthesia History 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 When Was Last Pacemaker Check QUESTION #4 FULL TEXT: You/Your Family Experience fever (hyperthermia) with Anesthesia Last Oral Intake Last Oral intake: Last Oral Intake NPO since 00:00 07/05/24 06:43 Meds taken in AM with sips of No 07/05/24 06:43 water? 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: PONV - security incident handler Female Yes 07/03/24 11:37 HX of Motion Sickness Yes 07/03/24 11:37 HX of N/V After Surgery No 07/03/24 11:37 Non-Smoker Yes 07/03/24 11:37 Duration of Surgery greater No 07/03/24 11:37 than 60 minutes Number of Risk Factors 3 07/03/24 11:37 PONV Score Moderate Risk 07/03/24 11:37 Height & Weight Height & Weight: Anesthesia: Height & Weight Height 5 ft 4 in 07/05/24 06:43 Weight: 79 kg 07/05/24 06:43 Body Mass Index (BMI) 29.9 07/05/24 06:43 Respiratory Assessment Respiratory Assessment - security incident handler: Respiratory Tract Infection Hx - security incident handler Hx Respiratory Tract Infection No 07/03/24 11:37 STOP Sleep Apnea STOP Sleep Apnea - security incident handler: STOP Sleep Apnea - security incident handler Hx Hypertension No 07/03/24 11:37 Hx Sleep Apnea No 07/03/24 11:37 CPAP BIPAP Do you snore loudly (louder Yes 07/03/24 11:37 than talking or can be heard Do you often feel tired/ No 07/03/24 11:37 fatigued/ sleepy during daytime? Has anyone observed you stop No 07/03/24 11:37 breathing during sleep? STOP Results Negative 07/03/24 11:37 QUESTION #5 FULL TEXT : Do you snore loudly (louder than talking or can be heard through closed doors)? 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 Specify any problems Hx of Preganancy in last 3 No 07/03/24 11:37 Months Nurse Filling Out Transfusion DSCHRIBER 07/03/24 11:37 & Questions: Date: 07/03/24 07/03/24 11:37 Time: 11:39 07/03/24 11:37 Patient unable to answer at this time (ie. 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: /Reproductive Hx- security incident handler Hx Now No 07/03/24 11:37 Gestational Age (in weeks): EDC: Hx Hx Para Hx Section SAB No 07/03/24 11:37 Active Medications Active Medications: Current Medications Generic Name Dose Route Start Last Admin Trade Name Freq PRN Reason Stop Dose Admin Cefotetan Disodium 2 gm/ 100 mls @ 200 mls/hr 07/05/24 07:30 Sodium Chloride IV 07/05/24 07:59 INTRAOP ONE Sodium Chloride 1,000 mls @ 15 mls/hr 07/05/24 06:15 07/05/24 06:42 IV 15 mls/hr .Q48H SAVANANH Administration PFSH Medical History Anxiety Rheumatoid arthritis Back pain Syncope Gastric reflux Shortness of breath on exertion Leg cramps History of edema History of irregular heartbeat Wears glasses Alcohol use Anemia Migraine headache Dietary restriction History of IBS Former smoker History of echocardiogram Cardiology follow-up encounter Allergic dermatitis Depression PVC's (premature ventricular contractions) Palpitations Polyarthralgia Hypothyroidism History of prolactinoma Home Medications ?Medication ?Instructions ?Recorded ?Last Taken ?Type apple cider vinegar 300 mg tablet 300 mg PO DAILY 07/12/22 07/03/24 History cholecalciferol (vitamin D3) 25 25 mcg PO DAILY 07/12/22 07/03/24 History mcg (1,000 unit) capsule folic acid 1 mg tablet 1 mg PO DAILY 07/12/22 07/03/24 History levothyroxine 25 mcg tablet 25 mcg PO QODAY 07/12/22 07/03/24 History vitamin B complex (B 1 tab PO DAILY 07/12/22 07/03/24 History Complex-Vitamin B12 tablet) melatonin 3 mg capsule 3 mg PO HS PRN sleep 10/13/22 07/03/24 History acetaminophen 325 mg tablet 650 mg PO Q4H PRN pain 07/03/24 07/03/24 History (Tylenol) turmeric (bulk) miscellaneous DAILY 07/05/24 07/03/24 History Allergy/AdvReac Type Severity Reaction Status Date / Time gluten Allergy Abd Verified 07/03/24 11:36 cramps/diarrhea Family History Mother Hearing loss Grandmother Diabetes Colon cancer PVC (premature ventricular contraction) Grandfather Diabetes Crohn's disease Heart disease Grandmother Alzheimers disease Surgical History H/O section Social History current occupation: [employer] Smoking Status: Former smoker how long ago did patient quit smokin alcohol intake: current substance use type: does not use caffeine: No frequency: daily Review of Systems (Anesthesia) ROS Narrative System reviewed and no additional complaints, except as documented.
--- NOTE | 2024-07-05 07:30 | GALL_PTH ---
PATIENT: DALLAS FARIAS LOC: [facility] [place] U#:[id number] AGE/SX: 39/F ROOM: RE07/05/[address]: Dr. Christian Hollins MD : [id number] BED: DIS: 07/05/2024 SPEC #: [id number] RECD: 07/05/24 09:51 STATUS: MONIK REMaine #: [id number] HUGO: 07/05/24 07:[address]: Christian Hollins DEPT: SURGICAL PATHOLOGY RECD BY: Sinan Ibarra ENTERED: 07/05/24 11:31 SP TYPE: TATE HOPSON DR: WANG Najera Tissues: A - Gallbladder, NOS Procedures: Surgery Specimen Level III HEADER OPERATION: Laparoscopic, cholecystectomy with IOC PRE-OP DIAGNOSIS: Biliary dyskinesia TISSUE SUBMITTED: A- Gallbladder MICROSCOPIC DIAGNOSIS A. Gallbladder, cholecystectomy: * Mild chronic cholecystitis MICROSCOPIC DESCRIPTION Slides are reviewed. GROSS DESCRIPTION A. Received in formalin in a container labeled with the patient's name, date of , and gallbladder is an intact 7.6 x 2.9 x 2.7 cm cholecystectomy specimen. A clamped 0.5 x 0.3 cm cystic duct margin is identified and inked black. The serosa is within normal limits. The specimen is opened to reveal an abundance of thick and translucent green bile with no stones identified in the specimen or in the container. The mucosa is velvety and red-sarabia with an average wall thickness of 0.2 cm. [employer] Inspector sections:A1. Cystic duct margin, en face with full-thickness sections [facility] 07/06/2024 CPT:73148
[2024-07-05] MEDS: Cefotetan 2 GM in 0.9% Normal Saline (100mL MB+) 100 ML IV (07:44)
--- NOTE | 2024-07-05 07:52 | RAD_ITS ---
EXAM: Cholangiogram. CLINICAL HISTORY: Pain. COMPARISON: None. TECHNIQUE: Cholangiogram images are provided. Total exposure time 7.8 seconds. One cine run Total radiation dose 2.9 mGy FINDINGS: Cholangiogram was performed. No evidence of contrast leakage. Nondilated biliary tree. Nondilated pancreatic duct. RAD/Cholangiogram/ O R,Initial IMPRESSION: Nondilated biliary tree. Cholangiogram was performed. No contrast leakage. Reading [facility]
[2024-07-05] MEDS: Bupiv/Epi 0.25% 30 ML Vial (08:20)
--- NOTE | 2024-07-05 08:24 | OP.PCM_ITS ---
Operative Report (Standard) Operative Information Date of Procedure: 07/05/24 Pre-Operative Diagnosis: Biliary dyskinesia Post-Operative Diagnosis: Biliary dyskinesia Surgery/Procedure Performed: Laparoscopic cholecystectomy with cholangiograms airborne missions systems: Yes Purchasing Buyer: Hector Alejandre Tasks completed by assistant service manager: Opening, Closing and Retracting Type of Anesthesia: General/Regional RN Documented Start/Stop Times: Operation Date: 07/05/24 07:30 Case Time Into Pre-Op 07/05/24 06:11 Out of Pre-Op 07/05/24 07:22 Anesthesia Start 07/05/24 07:24 Into Room 07/05/24 07:24 Procedure Start 07/05/24 07:46 Procedure Start Time: 07:46 Procedure Stop Time: 08:30 Select all DRAINS/GRAFTS/IMPLANTS that apply: None Estimated Blood Loss: 5 Specimen collected: Yes Description of specimen(s) removed: Gallbladder Description of surgery: After obtaining informed consent patient was brought back to the operating room. General anesthesia was induced. The abdomen was prepped and draped in usual sterile fashion. A small midline incision was made superior to the umbilicus and deepened to the level of fascia. The fascia was elevated and incised. Next the peritoneum was elevated and incised in the same fashion. Finger sweep was performed and the Sapp trocar was placed into the abdomen. The balloon was inflated. The abdomen was inflated to 15 mmHg. Next a camera was introduced into the abdomen and the abdomen was inspected. Next under direct visualization three 5-mm ports were placed one subxiphoid and 2 subcostal. Next the gallbladder was elevated and retracted toward the right shoulder. The peritoneum was stripped from the gallbladder. The infundibulum was located and retracted laterally. Next the triangle of Calot was dissected and the cystic duct and cystic artery were identified. Cholangiograms were performed. The Whelan clamp was used to clamp across the infundibulum and the catheter needle was inserted into the gallbladder. Under fluoroscopy contrast was instilled into the gallbladder and the common duct, cystic duct as well as proximal hepatic ducts were identified. There was good filling of the duodenum. There were no filling defects noted in the common bile duct. The clamp was removed as well as the needle and the infundibulum was grasped once more. Three hemolock clips were placed across the cystic duct. The cystic duct was then divided leaving 2 clips on the stump. The cystic artery was clipped and divided in the same fashion. The hook cautery was then used to take the gallbladder off of the gallbladder bed. Hemostasis was obtained. Gallbladder fossa was irrigated and no active bleeding or bile leakage was noted. Next the camera was introduced in the subxiphoid port. An Endopouch bag was placed through the umbilical port and the gallbladder was placed into it. The gallbladder was then removed through the umbilical incision. The camera was then reinserted through the umbilical port. The gallbladder fossa was inspected once more and noted to be hemostatic with no leaking bile. The abdomen was suctioned dry. The 5 mm ports were removed under direct visualization. The umbilical port was then removed and the air was removed from the abdomen. Next using an 0 Vicryl suture the umbilical fascia was closed in a [id number] fashion. The umbilical port site was irrigated local anesthetic was administered to all the incisions. All the incisions were closed with interrupted subcuticular 4-0 Monocryl sutures followed by Steri-Strips and dressings. The patient was awoken and taken to PACU in stable condition. Surgical Findings: Normal intraoperative cholangiogram's, wound class II Complications Complications: No Admit VTE Documentation VTE Mechan Device Prophylaxis: SCD's
--- NOTE | 2024-07-05 08:26 | EX.PCM.DISCH ---
Discharge Instructions Procedure Gallbladder Diet Discharge Diet: Light diet - advance as tolerated Activity Discharge Activity: May Not Drive (for 2-3 days or while taking narcotic pain medications.) and - (Do not drive, work heavy equipment or sign legal documents for 24 hours.) May shower in (days): 1 Lifting Restrictions: 20 lbs for 2 weeks Additional Activity Instructions:: Pain medication may cause nausea. You should typically eat light foods as you take your pain medications. Pain medication may also cause constipation. If this is a problem for you, please discuss with your doctor. Dressing / Incision Call your doctor if your incision/area has: Continuous Slow Oozing, Sudden Increased Bleeding, Increased Pain/ Swelling, Increased Redness and Foul Smelling Discharge Call your doctor if you observe: Fever of 101 or Higher Suture Line Care: Avoid Pulling/Pushing and Avoid Pinching/Bending Remove Dressing in: 2 days Additional Dressing/Incision Instructions:: Leave operative bandaids on for 2 days. When you remove dressing, leave Steri-Strips on until your follow-up appointment, or until the Steri-Strips fall off on their own. Follow Up Care Please Follow Up With: Christian Hollins MD When: Please call to schedule 2 week follow up appointment. [phone] Test Results: Test results from this visit will be discussed in further detail at your follow-up appointment, if applicable. Discharge Plan Admission Attending Provider: Christian Hollins Primary Care Provider: Nona Moreno Instructions Print Language: Citizen Of [place] Discharge Orders/Prescriptions Prescriptions: New oxycodone 5 mg Tablet 5 - 10 mg PO Q4H PRN PRN (Reason: Pain Score 4-10) 5 Days Qty: 20 0RF No Action levothyroxine 25 mcg tablet 25 mcg PO QODAY Patient Comments: TAKE 1 TABLET BY MOUTH EVERY OTHER DAY cholecalciferol (vitamin D3) 25 mcg (1,000 unit) capsule 25 mcg PO DAILY folic acid 1 mg tablet 1 mg PO DAILY vitamin B complex [B Complex-Vitamin B12] Tablet 1 tab PO DAILY apple cider vinegar 300 mg tablet 300 mg PO DAILY melatonin 3 mg capsule 3 mg PO HS PRN (Reason: sleep) acetaminophen [Tylenol] 325 mg tablet 650 mg PO Q4H PRN (Reason: pain) turmeric (bulk) [Curcumin] miscellaneous DAILY Referrals / Follow Up: Nona Moreno, [facility] [Primary Care Provider] - Disposition Disposition (needs filled in before D/C Order can be placed): Home, Self Care
--- NOTE | 2024-07-05 11:47 | PCM.POST.ANE ---
Anesthesia: Postop Eval I Current Vital Signs Temperature: 97.4 F Pulse Rate: 59 Blood Pressure: 117/75 Respiratory Rate: 18 Pulse Ox: 100 Oxygen Delivery Method: Room Air Assessment Airway patent: Yes Spontaneous unlabored respirations: Yes nausea: No Vomiting: No Anesthesia Complication: No Fluid Hydration Crystalloid volume administer (ml): 1,000 Total IV fluid infused: 1,000 Progress Note Anesthesia document: Postop Eval 1 completed: Yes
[2024-07-05] MEDS: Acetaminophen 325 MG Tablet 650 MG PO (12:14)
--- NOTE | 2024-07-05 15:08 | POSTOPAN2_ITS ---
Anesthesia Postop Eval I Sum Postop Eval Completion status Anesthesia document: Postop Eval 1 completed: Yes Anesthesia Postop Eval I Summary Anesthesia Postop Eval I Summary: Anesthesia Postop Eval I: Assessment Summary Airway patent Yes 07/05/24 11:48 EXCELSIOR MACHINE TENDER.ACAR Spontaneous unlabored Yes 07/05/24 11:48 EXCELSIOR MACHINE TENDER.ACAR respirations Mental status nausea No 07/05/24 11:48 EXCELSIOR MACHINE TENDER.ACAR Vomiting No 07/05/24 11:48 EXCELSIOR MACHINE TENDER.ACAR Anesthesia Postop Eval I: Fluid Summary Crystalloid volume administer 1,000 07/05/24 11:48 EXCELSIOR MACHINE TENDER.ACAR (ml) Colloids volume administered ( ml) Blood Product volume administered (ml) Total IV fluid infused 1,000 07/05/24 11:48 EXCELSIOR MACHINE TENDER.ACAR Anesthesia Postop Eval I: Summary Notes Anesthesia Complication No 07/05/24 11:48 EXCELSIOR MACHINE TENDER.ACAR Anesthesia Complication Comment: Post-operative progress note Anesthesia: Postop Eval II Evaluation Mental status: Awake and Calm Pain Level: 0 nausea: No Vomiting: No Complications Anesthesia Complication: No
--- NOTE | 2024-07-05 15:08 | PCM.POSTANE2 ---
Anesthesia Postop Eval I Sum Postop Eval Completion status Anesthesia document: Postop Eval 1 completed: Yes Anesthesia Postop Eval I Summary Anesthesia Postop Eval I Summary: Anesthesia Postop Eval I: Assessment Summary Airway patent Yes 07/05/24 11:48 PERSONNEL PLACEMENT SPECIALIST.ACAR Spontaneous unlabored Yes 07/05/24 11:48 PERSONNEL PLACEMENT SPECIALIST.ACAR respirations Mental status nausea No 07/05/24 11:48 PERSONNEL PLACEMENT SPECIALIST.ACAR Vomiting No 07/05/24 11:48 PERSONNEL PLACEMENT SPECIALIST.ACAR Anesthesia Postop Eval I: Fluid Summary Crystalloid volume administer 1,000 07/05/24 11:48 PERSONNEL PLACEMENT SPECIALIST.ACAR (ml) Colloids volume administered ( ml) Blood Product volume administered (ml) Total IV fluid infused 1,000 07/05/24 11:48 PERSONNEL PLACEMENT SPECIALIST.ACAR Anesthesia Postop Eval I: Summary Notes Anesthesia Complication No 07/05/24 11:48 PERSONNEL PLACEMENT SPECIALIST.ACAR Anesthesia Complication Comment: Post-operative progress note Anesthesia: Postop Eval II Evaluation Mental status: Awake and Calm Pain Level: 0 nausea: No Vomiting: No Complications Anesthesia Complication: No
== END 2024-07-05 12:55 | disposition home or self-care (01) ==
LOC: SDC 06:01 → AC 06:02
PROVIDERS: Anesthesiology; Referring Provider Surgery; Visit Provider Surgery
PROC: (CPT 47610; principal; 2024-07-05 07:10)
DX: K81.1 Chronic cholecystitis (principal); K58.9 Irritable bowel syndrome, unspecified; E03.9 Hypothyroidism, unspecified; Z79.890 Hormone replacement therapy; Z79.899 Other long term (current) drug therapy; Z87.891 Personal history of nicotine dependence
CPT/HCPCS: 47563; 00790; 36415; 74300; 76000; 81025; 84443; 88304; 93005; J2405

== ENCOUNTER 2024-07-12 04:07 | Inpatient (IN) | payer OTHER, SELFPAY ==
[2024-07-12 03:50] VITALS: BP 132/70; PULSE 82; RESP 16; TEMP 37.1; O2SAT 100
--- NOTE | 2024-07-12 04:10 | NURSING ---
vish michel at [facility] will fax over paper work and send the imageries
[2024-07-12] MEDS: Acetaminophen 325 MG Tablet 650 MG PO ×2 (04:23→11:52)
[2024-07-12] MEDS: 0.9% Normal Saline (1000mL) 1,000 ML 125 ML IV ×2 (04:25→14:21)
[2024-07-12 06:03] LABS: Absolute Lymphocyte Count 1.41 X10^3/uL (0.83-4.51); Absolute Neutrophil Count 6.4 X10^3/uL (2.0-7.7); Basophil# 0.06 X10^3/uL; Basophil% 0.7 % (0-1); Eosinophil# 0.14 X10^3/uL; Eosinophils% 1.6 % (0-5); Hematocrit 33.8 % (37-47); Hemoglobin 11.3 g/dL (12.0-15.0); Lymphocyte # 1.41 X10^3/ul (0.83-4.51); Lymphocyte % 15.8 % (19-41); Mean Corp Hgb Conc 33.4 g/dL (32-36); Mean Corpuscular Hgb 31.9 pg (27.0-32.0); Mean Corpuscular Volume 95.5 fL (81-99); Mean Platelet Vol. 11.8 fl (6.2-12.0); Monocyte# 0.93 X10^3/uL; Monocyte% 10.4 % (0-10); NRBC Flagged by Analyzer 0 % (0-5); Neutrophil # 6.38 X10^3/uL (2.7-7.7); Neutrophil % 71.3 % (47-70); Platelet Count 263 K/mm3 (150-450); RBC Distribution Width CV 12.8 % (11.6-14.6); RBC Distribution Width SD 45.2 fl (35.1-43.9); Red Blood Count 3.54 M/mm3 (4.2-5.4); White Blood Count 8.9 K/mm3 (4.4-11.0)
[2024-07-12 06:39] LABS: ALB/GLOB Ratio 1.3 RATIO (0.9-2.4); AST(SGOT) 23 U/L (<=31); Alanine Aminotransfer ALT/SGPT 31 U/L (<=34); Albumin, Serum 3.6 g/dL (3.5-5.0); Alkaline Phosphatase 60 U/L (35-104); Anion Gap 11 (5-15); BUN 10 mg/dL (4-19); Carbon Dioxide 20.3 mmol/L (21.0-32.0); Chloride 108 mmol/L (98-108); EST Glomerular Filtration Rate 114 (>60); Estimated Creatinine Clearance 112.18 ml/min (50-250); Globulin 2.8 g/dL (2.2-4.2); Glucose 108 mg/dL (70-99); Potassium 3.6 mmol/L (3.3-5.1); Protein, Total 6.4 g/dL (5.9-8.4); Sodium Level 139 mmol/L (133-145); Total Bilirubin 0.26 mg/dL (0.00-1.30)
--- NOTE | 2024-07-12 08:20 | PCM.HP.STD ---
HPI - General General Date of Admission: 07/12/24 HPI Narrative DALLAS FARIAS, is a 39 F who presents with abdominal pain that was severe. She reports that she has been feeling more tired than she would expect after surgery for the past week. She had a laparoscopic cholecystectomy 1 week ago for biliary dyskinesia. She reports that yesterday she was cooking food and in the middle of cooking she felt like stabbing pain under the right ribs that radiates down to the pelvis. She says it has not gone away and is twister frame tender. She denies nausea or vomiting or fevers or chills. [facility] Medical History Anxiety Rheumatoid arthritis Back pain Syncope Gastric reflux Shortness of breath on exertion Leg cramps History of edema History of irregular heartbeat Wears glasses Alcohol use Anemia Migraine headache Dietary restriction History of IBS Former smoker History of echocardiogram Cardiology follow-up encounter Allergic dermatitis Depression PVC's (premature ventricular contractions) Palpitations Polyarthralgia Hypothyroidism History of prolactinoma Home Medications ?Medication ?Instructions ?Recorded ?Last Taken ?Type cholecalciferol (vitamin D3) 25 25 mcg PO DAILY 07/12/22 07/03/24 History mcg (1,000 unit) capsule folic acid 1 mg tablet 1 mg PO DAILY 07/12/22 07/03/24 History levothyroxine 25 mcg tablet 25 mcg PO QODAY 07/12/22 07/03/24 History vitamin B complex (B 1 tab PO DAILY 07/12/22 07/03/24 History Complex-Vitamin B12 tablet) melatonin 3 mg capsule 3 mg PO HS PRN sleep 10/13/22 07/03/24 History acetaminophen 325 mg tablet 650 mg PO Q4H PRN pain 07/03/24 07/03/24 History (Tylenol) ondansetron 4 mg disintegrating 4 mg PO Q8H PRN nausea and 07/05/24 Unknown Rx tablet vomiting #14 tabs oxycodone 5 mg tablet 5 - 10 mg (1 - 2 x 5 mg) PO Q4H 07/05/24 Unknown Rx PRN PRN Pain Score 4-10 5 days #20 tabs turmeric (bulk) 1 ea miscellaneous DAILY 07/05/24 07/03/24 History Allergy/AdvReac Type Severity Reaction Status Date / Time gluten Allergy Abd Verified 07/12/24 03:47 cramps/diarrhea Family History Mother Hearing loss Grandmother Diabetes Colon cancer PVC (premature ventricular contraction) Grandfather Diabetes Crohn's disease Heart disease Grandmother Alzheimers disease Surgical History H/O section Social History current occupation: [employer] Smoking Status: Former smoker how long ago did patient quit smokin alcohol intake: current substance use type: does not use caffeine: No frequency: daily Vital Signs Vital Signs Vital Signs: 07/12/24 03:50 07/12/24 04:01 Temperature 98.7 F Temperature Source Oral Pulse Rate 82 Respiratory Rate 16 Respiratory Effort Normal Non-Labored Respiratory Depth Normal Respiratory Pattern Normal Blood Pressure 132/70 H Blood Pressure Mean 90 Blood Pressure Source Monitor Blood Pressure Position Semi-Fowlers Blood Pressure Location Left Arm Pulse Ox 100 Oxygen Delivery Method Room Air Weight Weight: 175 lb 0.752 oz Body Mass Index (BMI) 30.0 Physical Exam Const oriented x3 and no apparent distress Resp normal respiratory effort Cardio regular rate and regular rhythm GI soft to palpation Palpation: tender RUQ Results Lab / Micro Data 07/12/24 05:20 07/12/24 05:20 Labs: Laboratory Results - last 24 hr 07/12/24 05:20: WBC 8.9, RBC 3.54 L, Hgb 11.3 L, Hct 33.8 L, MCV 95.5, MCH 31.9, MCHC 33.4, RDW Std Deviation 45.2 H, RDW Coeff of Ada 12.8, Plt Count 263, MPV 11.8, Immature Gran % (Auto) 0.200, Neut % (Auto) 71.3 H, Lymph % (Auto) 15.8 L, Bell % (Auto) 10.4 H, Eos % (Auto) 1.6, Baso % (Auto) 0.7, Absolute Neuts (auto) 6.4, Absolute Lymphs (auto) 1.41, Nucleated RBC % 0, Sodium 139, Potassium 3.6, Chloride 108, Carbon Dioxide 20.3 L, Anion Gap 11, BUN 10, Creatinine 0.70, Estim Creat Clear Calc 112.18, Est GFR (MDRD) Non-Af 114, BUN/Creatinine Ratio 14.0, Glucose 108 H, Calcium 8.0, Total Bilirubin 0.26, AST 23, ALT 31, Alkaline Phosphatase 60, Total Protein 6.4, Albumin 3.6, Globulin 2.8, Albumin/Globulin Ratio 1.3 Assessment & Plan Assessment/Plan (1) Biliary dyskinesia: PLAN: The patient had laparoscopic cholecystectomy 1 week ago. It was uncomplicated. She is having stabbing pain that is radiating down to the pelvis. White count and labs are normal. LFTs are normal. She had a CT scan which showed a residual fluid collection in the gallbladder fossa. I will order a HIDA to evaluate and make sure she does not have a bile leak. Christian Hollins MD Pager: [facility] [address] [place] [address], [address] [place] [address] Office:
--- NOTE | 2024-07-12 08:22 | NM_ITS ---
PROCEDURE: HEPATOBILLIARY IMAGING 07/12/2024 REASON FOR EXAM: RUQ PAIN AFTER CHOLECYSTECTOMY TECHNIQUE: Intravenous Choletec with planar imaging of the abdomen. RADIOPHARMACEUTICAL: 5.6 mCi of technetium labeled mebrofenin COMPARISON: None. FINDINGS: There is good uptake of the radiopharmaceutical by the liver. The patient is status post cholecystectomy. Radiopharmaceutical is seen within the proximal small bowel. NM/Hepatobilliary Imaging IMPRESSION: Status post cholecystectomy. No abnormality is seen. Reading Location: [place] [address]
[2024-07-12 09:33] VITALS: BP 115/69; PULSE 86; RESP 17; TEMP 37.4; O2SAT 98
--- NOTE | 2024-07-12 10:18 | NURSING ---
Off the unit, having HIDA scan done.
[2024-07-12] MEDS: 0.9% Saline Lock 10 ML Syringe IV (11:54)
--- NOTE | 2024-07-12 13:35 | CASEMGMT ---
GUI MOTLEY Assessment: Face to Face with pt for initial transition planning/care coordination assessment. RN TIESHA introduced self and role at [facility], pt voices understanding and consents to assessment. Pt is A&O x4 and answers all questions appropriately at this time. Pt sitting up in bed in no distress with mother at bedside. Mother left room for assessment. Care providers, pharmacy, and demographics verified/updated. Admitting Dx: abd pain Strata Score: 1 PCP:Tiffanie Specialists:Denies Preferred Pharmacy:[facility] [place] Insurance: [employer] Prescription Benefit: yes LNOK: [place], Living Arrangements: Pt lives with and son in a split level home with 2 steps to enter. Pt reports she is I in ADL/IADLs and denies concerns at home. Transportation: Pt drives self and denies concerns with transportation. DME:[facility] HHC/SNF: Denies hx of Pt states no concerns with going home at time of dc. Pt states no further concerns/needs. CM to follow. Advised pt to ask CM if any further questions/concerns/needs arise, voices understanding. Pt Goal: Home Plan: Home Smooth MESSER CM
[2024-07-12] MEDS: Pantoprazole Sodium 40 MG in 0.9% Normal Saline (100mL MB+) 100 ML 330 MG IV (14:21)
[2024-07-12 14:26] VITALS: BP 110/61; PULSE 74; RESP 17; TEMP 37.2; O2SAT 100
--- NOTE | 2024-07-12 15:09 | PN_ITS ---
Progress Note The patient had a HIDA scan today which was negative for bile leak. So now she has had a CT scan which was essentially normal and normal labs and normal HIDA. I do not believe there is anything going on besides postoperative pain. I will discharge her home today. She will follow-up with me in the office unless she has increasing pain and she will call me sooner. Christian Hollins MD Pager: [facility] [address] [place] [address] [address] [place] [address] Office:
== END 2024-07-12 16:22 | disposition home or self-care (01) | DRG 392 ==
PROVIDERS: Admitting Provider Surgery; Visit Provider Surgery
DX: R10.9 Unspecified abdominal pain (principal); E03.9 Hypothyroidism, unspecified; R10.2 Pelvic and perineal pain; R07.89 Other chest pain; G89.18 Other acute postprocedural pain; Y83.6 Removal of other organ (partial) (total) as the cause of abnormal reaction of the patient, or of later complication, without mention of misadventure at the time of the procedure; Z90.49 Acquired absence of other specified parts of digestive tract; Z79.890 Hormone replacement therapy; Z79.899 Other long term (current) drug therapy; Z87.891 Personal history of nicotine dependence
CPT/HCPCS: 78226; 80053; 85025; A9537; A4216

== ENCOUNTER → 2024-07-31 | Outpatient (CLI) | payer OTHER, SELFPAY ==
[2024-07-31 16:49] LABS: Estradiol 64.6 pg/mL; Follicle Stimulating Hormone 2.5 mIU/mL; Free T3 2.9 pg/mL (2.18-3.98); Luteinizing Hormone 8.6 mIU/mL; Thyroid Stim Hormone (TSH) 0.888 uIU/mL (0.300-4.200)
[2024-08-02 04:07] LABS: PROLACTIN 43.5 ng/mL (4.8-33.4)
[2024-08-04 21:07] LABS: Testosterone Free 2.4 pg/mL (0.0-4.2)
== END | disposition home or self-care (01) ==
PROVIDERS: Referring Provider Registered Nurse; Visit Provider Registered Nurse
DX: E03.9 Hypothyroidism, unspecified (principal); R53.83 Other fatigue; N63.0 Unspecified lump in unspecified breast
CPT/HCPCS: 36415; 82670; 83001; 83002; 84146; 84402; 84439; 84443; 84481

== ENCOUNTER → 2024-08-31 | Outpatient (CLI) | payer OTHER, SELFPAY ==
[2024-08-31 08:38] LABS: Absolute Lymphocyte Count 1.77 X10^3/uL (0.83-4.51); Absolute Neutrophil Count 2.8 X10^3/uL (2.0-7.7); Basophil# 0.06 X10^3/uL; Basophil% 1.1 % (0-1); Eosinophil# 0.19 X10^3/uL; Eosinophils% 3.6 % (0-5); Hematocrit 37.1 % (37-47); Lymphocyte # 1.77 X10^3/ul (0.83-4.51); Lymphocyte % 33.2 % (19-41); Mean Corp Hgb Conc 32.3 g/dL (32-36); Mean Corpuscular Hgb 31.6 pg (27.0-32.0); Mean Corpuscular Volume 97.6 fL (81-99); Mean Platelet Vol. 11.7 fl (6.2-12.0); Monocyte# 0.54 X10^3/uL; Monocyte% 10.1 % (0-10); NRBC Flagged by Analyzer 0 % (0-5); Neutrophil # 2.76 X10^3/uL (2.7-7.7); Neutrophil % 51.8 % (47-70); Platelet Count 248 K/mm3 (150-450); RBC Distribution Width CV 13.5 % (11.6-14.6); RBC Distribution Width SD 48.7 fl (35.1-43.9); White Blood Count 5.3 K/mm3 (4.4-11.0)
[2024-08-31 14:51] LABS: ALB/GLOB Ratio 1.5 RATIO (0.9-2.4); AST(SGOT) 20 U/L (<=31); Alanine Aminotransfer ALT/SGPT 20 U/L (<=34); Alkaline Phosphatase 63 U/L (35-104); Anion Gap 10 (5-15); BUN 12 mg/dL (4-19); BUN/Creat Ratio 14.7 RATIO (10-20); Calcium,Total 8.7 mg/dL (7.6-11.0); Carbon Dioxide 23.6 mmol/L (21.0-32.0); Chloride 105 mmol/L (98-108); EST Glomerular Filtration Rate 97 (>60); Globulin 2.6 g/dL (2.2-4.2); Glucose 85 mg/dL (70-99); Potassium 3.9 mmol/L (3.3-5.1); Protein, Total 6.6 g/dL (5.9-8.4); Sodium Level 138 mmol/L (133-145); Total Bilirubin 0.33 mg/dL (0.00-1.30)
== END | disposition home or self-care (01) ==
LOC: LAB 08:10
PROVIDERS: Referring Provider Internal Medicine Rheumatology; Visit Provider Internal Medicine Rheumatology
DX: M06.4 Inflammatory polyarthropathy (principal); R76.8 Other specified abnormal immunological findings in serum; Z79.899 Other long term (current) drug therapy
CPT/HCPCS: 36415; 80053; 85025

== ENCOUNTER → 2024-09-27 | Outpatient (CLI) | payer OTHER, SELFPAY ==
--- NOTE | 2024-09-27 17:08 | RAD_ITS ---
PROCEDURE: WRIST MIN 3 VIEWS 09/27/2024 REASON FOR EXAM: WRIST INJURY TECHNIQUE: WRIST MIN 3 VIEWS COMPARISON: Reviewed FINDINGS: Osseous structures intact. Joint spaces preserved. Mild soft tissue swelling. RAD/Wrist min 3 Views IMPRESSION: No acute radiographic process. Reading Location: [facility]
== END | disposition home or self-care (01) ==
LOC: MTRAD 17:07
PROVIDERS: Referring Provider Physician Assistant Surgical; Visit Provider Physician Assistant Surgical
DX: S69.90XA Unspecified injury of unspecified wrist, hand and finger(s), initial encounter (principal); X58.XXXA Exposure to other specified factors, initial encounter
CPT/HCPCS: 73110

== ENCOUNTER → 2024-10-16 | Outpatient (CLI) | payer OTHER, SELFPAY ==
--- NOTE | 2024-10-16 09:13 | US_ITS ---
PROCEDURE: BREAST LIMITED UNILATERAL N/A REASON FOR EXAM: F, Age 39 y/o , RIGHT BREAST MASS COMPARISON: Prior mammogram done earlier in the day.. TECHNIQUE: BREAST LIMITED UNILATERAL FINDINGS: The superior retroareolar region of the right breast was examined with ultrasound. There is a 6 mm x 10 mm x 6 mm well-defined hypoechoic nodule at the 12 o'clock position of the breast at 2 cm from the nipple. This may represent a fibroadenoma although tissue diagnosis recommended. US/Breast Limited Unilateral IMPRESSION: 6 mm x 10 mm x 6 mm well-defined hypoechoic nodule at the 12 o'clock position o f the breast at 2 cm from the nipple as described. Biopsy recommended. BI-RADS 4: SUSPICIOUS RECOMMENDATION: Biopsy Recommended Reading Location: [facility]
--- NOTE | 2024-10-16 09:13 | US_ITS ---
PROCEDURE: BREAST LIMITED UNILATERAL N/A REASON FOR EXAM: F, Age 39 y/o , RIGHT BREAST MASS COMPARISON: Prior mammogram done earlier in the day.. TECHNIQUE: BREAST LIMITED UNILATERAL FINDINGS: The superior retroareolar region of the right breast was examined with ultrasound. There is a 6 mm x 10 mm x 6 mm well-defined hypoechoic nodule at the 12 o'clock position of the breast at 2 cm from the nipple. This may represent a fibroadenoma although tissue diagnosis recommended. US/Breast Limited Unilateral IMPRESSION: 6 mm x 10 mm x 6 mm well-defined hypoechoic nodule at the 12 o'clock position o f the breast at 2 cm from the nipple as described. Biopsy recommended. BI-RADS 4: SUSPICIOUS RECOMMENDATION: Biopsy Recommended Reading Location: [facility]
--- NOTE | 2024-10-16 09:13 | BI_ITS ---
EXAM: DIAG MAMM W/CAD, UNILAT 10/16/2024 CLINICAL HISTORY: F, Age 39 y/o , RIGHT BREAST MASS. Rash above the nipple. TECHNIQUE: DIAG MAMM W/CAD, UNILAT. COMPARISON: Prior exam(s) dated April 30, 2024.. FINDINGS: TISSUE DENSITY: The breasts are extremely dense, which lowers the sensitivity of mammography. Bilateral Breast Mammographic Findings: No significant masses, calcifications or other abnormalities are identified. No suspicious masses, areas of developing architectural distortion, or suspicious calcifications. There has been no significant interval change. BI/DIAG MAMM W/CAD, UNILAT IMPRESSION: Stable examination. With the patient's history of lump/rash along the superior aspect of the right nipple, targeted ultrasound correlation recommended. OVERALL FINAL ASSESSMENT BI-RADS 0: INCOMPLETE - NEED ADDITIONAL IMAGING EVALUATION. RECOMMENDATION: Ultrasound Recommended A letter with findings and recommendations will be mailed to the patient. Reading Location: [facility]
--- NOTE | 2024-10-16 09:13 | BI_ITS ---
EXAM: DIAG MAMM W/CAD, UNILAT 10/16/2024 CLINICAL HISTORY: F, Age 39 y/o , RIGHT BREAST MASS. Rash above the nipple. TECHNIQUE: DIAG MAMM W/CAD, UNILAT. COMPARISON: Prior exam(s) dated April 30, 2024.. FINDINGS: TISSUE DENSITY: The breasts are extremely dense, which lowers the sensitivity of mammography. Bilateral Breast Mammographic Findings: No significant masses, calcifications or other abnormalities are identified. No suspicious masses, areas of developing architectural distortion, or suspicious calcifications. There has been no significant interval change. BI/DIAG MAMM W/CAD, UNILAT IMPRESSION: Stable examination. With the patient's history of lump/rash along the superior aspect of the right nipple, targeted ultrasound correlation recommended. OVERALL FINAL ASSESSMENT BI-RADS 0: INCOMPLETE - NEED ADDITIONAL IMAGING EVALUATION. RECOMMENDATION: Ultrasound Recommended A letter with findings and recommendations will be mailed to the patient. Reading Location: [facility]
== END | disposition home or self-care (01) ==
LOC: OPBI 09:12
PROVIDERS: Referring Provider Nurse Practitioner Women's Health; Visit Provider Nurse Practitioner Women's Health
DX: N63.41 Unspecified lump in right breast, subareolar (principal)
CPT/HCPCS: 76642; 77061; 77065; G0279

== ENCOUNTER → 2024-10-19 | Outpatient (CLI) | payer OTHER, SELFPAY ==
--- NOTE | 2024-10-19 15:08 | BRBX_PTH ---
PATIENT: DALLAS FARIAS LOC: [facility] U#:[id number] AGE/SX: 39/F ROOM: RE10/19/[address]: Dr. Christian Hollins MD : [id number] BED: DIS: 10/19/2024 SPEC #: [id number] RECD: 10/19/24 15:33 STATUS: MON[facility] REMaine #: [id number] HUGO: 10/19/24 15:[address]: Christian Hollins DEPT: SURGICAL PATHOLOGY RECD BY: Delmar Da Silva ENTERED: 10/22/24 11:59 SP TYPE: BREAST BX OTHR DR: Nona Moreno, ASSISTANT WRESTLING COACH-C Tissues: A - Right breast, NOS Procedures: Surgery Specimen Level IV HEADER OPERATION: Right breast biopsy PRE-OP DIAGNOSIS: Right breast mass TISSUE SUBMITTED: A- Right breast tissue MICROSCOPIC DIAGNOSIS A. Breast, right, core biopsy: - Benign fibrotic breast tissue, focally suggestive of fibroadenoma. - No evidence of malignancy is seen in these sections. MICROSCOPIC DESCRIPTION Slides are reviewed. GROSS DESCRIPTION A. Received in formalin labeled with the patient's name and date of . Designated as R breast tissue are 3, yellow-white tissue cores, 0.7 cm to 0.8 cm in length by 0.1 cm in diameter. Entirely submitted in 1 cassette. Cold ischemic time: < 1 minuteFormalin fixation time: 76 hours, 22 minutes [place] 10/22/2024 CPT:03029
--- OUTSIDE RECORDS SUMMARY | 2024-10-19 19:26 | XMS RPT_ITS | CCD ---
Author Organization [facility]iniSynm Care Team Providers Care Round Kiln Drawer Name Role Phone Required, No Pcp Unavailable Unavailable Miles Joseph Unavailable Unavailabl e Walter Hermosillo Unavailable Unavailable Unavailable Walter Hermosillo PA-C Primary Care Provider Unavailable Unavailable Walter Hermosillo PA-C Primary Care Provider Dr. Vahe Becker Attending Provider Dr. Binh Porter Referring Provider LLOYD Weldon Attending Provider Dr. Josesito Levine Attending Provider LLOYD Hermosillo Primary Care Provider LLOYD Hermosillo Referring Provider LLOYD Ragsdale Attending Provider WALTER HERMOSILLO Primary Care Unavailable WALTER HERMOSILLO Primary Care Unavailable NEWBILL, PAC WALTER ATKINS Primary Care Unavail able NEWBILL, PAC WALTER ATKINS Attending Unavail able NEWBILL, PAC WALTER MILLY Primary Care Unavail able NEWBILL, PAC WALTER ATKINS Attending Unavail able NEWBILL, PAC WALTER ATKINS Referring Unavail able NEWBILL, PAC WALTER MILLY Primary Care Unavail able NEWBILL, PAC WALTER ATKINS Attending Unavail able Dr. Josesito Levine Attending Provider [place] Khan Attending Provider LLOYD Ragsdale Attending Provider [place] INFRASTRUCTURE DESIGN ENGINEER-TERRAZZO GRINDER, Belinda L Unavailable [facility] [place] [facility] Referring Provider [place] Khan Attending Provider Eber KILN CLEANER, KILN CLEANER-C Brady Moseley Attending Provider WALTER HERMOSILLO Attending Unavailable WALTER HERMOSILLO Primary Care Unavailable TIFFANIE, NONA B Attending Unavailable TIFFANIE, NONA B Primary Care Unavailable Tiffanie INFRASTRUCTURE DESIGN ENGINEER-TERRAZZO GRINDER, Nona B Primary Care Provider Tiffanie INFRASTRUCTURE DESIGN ENGINEER-TERRAZZO GRINDER, Nona B Primary Care Provider Tiffanie KILN CLEANER-C, Nona Primary Care Provider Tiffanie KILN CLEANER-C, Nona Attending Provider Tiffanie KILN CLEANER-C, Nona Referring Provider Joaquin ALBRIGHT, Dr. Lucia Attending Provider Dr. Rea Nuñez MD Referring Provider Priscilla Khan CNM Attending Provider Priscilla Khan CNM Referring Provider Mercedez Miranda PA-C Attending Provider Gurvinder ALBRIGHT, Dr. Gonzales Attending Provider [phone] Dr. Christian Hollins MD Referring Provider Dr. Christian Hollins MD Other Provider Arin ALBRIGHT, Dr. Romano Admit Provider Dr. Juan Antonio Hinkle MD Attending Provider Dr. Juan Antonio Hinkle MD Other Provider TIFFANIE, NONA B Primary Care Unavailable ELEONORA CONDON Attending Unavailable PATRICIA HYATT Referring Unavaila ble TIFFANIE, NONA B Primary Care Unavailable TIFFANIE, NONA B Primary Care Unavailable DELMAR JONES Attending Unavailable TIFFANIE, NONA B Primary Care Unavailable MICHAEL FLEMING Attending Unavailable BILROSALBA, PATRICIA Cross Referring Unavaila ble TIFFANIE, NONA B Primary Care Unavailable Tiffanie KILN CLEANER-C, Nona Primary Care Provider Tiffanie KILN CLEANER-C, Nona Referring Provider Saroj Ragsdale Attending Provider [phone] Tiffanie KILN CLEANER-C, Nona Primary Care Provider Dr. Rea Nuñez MD Attending Provider Dr. Rea Nuñez MD Referring Provider Tiffanie KILN CLEANER-C, Nona Referring Provider Mercedez Miranda PA-C Attending Provider Bill CNMPriscilla Attending Provider Bill HAWTHORNEMPriscilla Referring Provider Gualberto Osorio Attending Provider Gualberto Osorio Referring Provider Tiffanie KILN CLEANER-C, [facility] Primary Care Provider Dr. Rea Nuñez MD Attending Provider Joaquin ALBRIGHT, Dr. Lucia Referring Provider Hardy CURRY-Norma Cross Attending Provider Gualberto Osorio Referring Unavailable Gualberto Osorio Attending Unavailable Tiffanie, Nona Primary Care Unavailable Vellanki, Rea Referring Unavailable VellankiRea Attending Unavailable Tiffanie, Nona Primary Care Unavailable Tiffanie, Nona Referring Unavailable Tiffanie, Nona Attending Unavailable Tiffanie, Nona Primary Care Unavailable Tiffanie, Nona Attending Unavailable Tiffanie, Nona Referring Unavailable Tiffanie, Nona Primary Care Unavailable Khan, Priscilla Referring Unavailable Khan, Priscilla Attending Unavailable Tiffanie, Nona Primary Care Unavailable Mercedez Sanon Attending Unavailable Tiffanie, Nona Referring Unavailable Tiffanie, Nona Primary Care Unavailable Tiffanie, Nona Primary Care Unavailable Tiffanie, Nona Referring Unavailable Saroj Solis Attending Unavailable SamlankiRea Attending Unavailable Vellanki, Rea Referring Unavailable Tiffanie, Nona Primary Care Unavailable Juan Antonio Hinkle Attending Unavailable Juan Antonio Hinkle Admitting Unavailable Tiffanie, Nona Primary Care Unavailable Calabretta, Christian Attending Unavailable Tiffanie, Nona Primary Care Unavailable Calabretta, Christian Referring Unavailable Vellanki, Rea Referring Unavailable Vellanki, Rea Attending Unavailable Tiffanie, Nona Primary Care Unavailable Calabretta, Christian Attending Unavailable Calabretta, Christian Referring Unavailable Tiffanie, Nona Primary Care Unavailable Khan, Priscilla Referring Unavailable Khan, Priscilla Attending Unavailable Tiffanie, Nona Primary Care Unavailable Hardy KILN CLEANER, Norma Referring Unavailable [place] KILN CLEANER, Norma Attending Unavailable Tiffanie, Nona Primary Care Unavailable Vellanki, Rea Referring Unavailable Vellanki, Rea Attending Unavailable Tiffanie, Nona Primary Care Unavailable Khan, Priscilla Attending Unavailable Tiffanie, Nona Referring Unavailable Tiffanie, Nona Primary Care Unavailable Gualberto Osorio Attending Unavailable Tiffanie, Nona Referring Unavailable Tiffanie, Nona Primary Care Unavailable Beck Richardson Attending Unavailable Tiffanie, Nona Primary Care Unavailable Tiffanie, Nona Attending Unavailable Tiffanie, Nona Referring Unavailable Tiffanie, Nona Primary Care Unavailable Tiffanie, Nona Attending Unavailable Tiffanie, Nona Referring Unavailable Tiffanie, Nona Primary Care Unavailable Hardy KILN CLEANER, Norma Attending Unavailable Tiffanie, Nona Referring Unavailable Tiffanie, Nona Primary Care Unavailable Calabretta Christian Attending Unavailable Tiffanie, Nona Referring Unavailable Tiffanie, Nona Primary Care Unavailable Khan, Priscilla Attending Unavailable Tiffanie, Nona Referring Unavailable Tiffanie, Nona Primary Care Unavailable Calabretta, Christian Attending Unavailable Tiffanie, Nona Primary Care Unavailable Tiffanie, Nona Referring Unavailable Juan Antonio Hinkle Consulting Unavailable Juan Antonio Hinkle Admitting Unavailable Tiffanie, Nona Primary Care Unavailable Calabretta, Christian Attending Unavailable Calabretta, Christian Attending Unavailable Calabretta, Christian Consulting Unavailable Tifafnie, Nona Primary Care Unavailable Calabretta, Christian Referring Unavailable Hardy KILN CLEANER-CNorma Referring Provider [phone] Allergies Allergy Classification Reported Allergen(s) Allergy Type Date of Onset Reaction(s) Facility (17 sources) glutenin; Translations: [GLUTEN] Allergy to substance (finding) 07-26-2022 [facility] (20 sources) Wheat gluten extract Drug Allergy 07-12-2022 Unknown [facility] (1 source) Gluten Drug allergy (disorder) 10-09-2024 [facility] Repository Medications Current Medications Medication Drug Class(es) Dates Sig (Normalized) Sig (Original) acetaminophen 325 mg / butalbital 50 mg / caffeine 40 mg oral tablet (6 sources) Barbiturate, Central Nervous System Stimulant, Methylxanthine Start: 02-28-2023 take 1 tablet by mouth every four hours for headache butalbital-acetam inophen-caff 50-325-40 mg tablet Indications: History of prolactinoma , Acute intractable headache, unspecified headache type Take 1 tablet by mouth every 4 hours if needed for headaches. Use no more than 5/day, 10/week, 30/month. 30 tablet 02/28/2023 Active [id number] 200 actuat albuterol 0.09 mg/actuat metered dose inhaler (5 sources) beta2-Adrenergic Agonist Start: 11-29-2023 End: 11-28-2024 take 2 puff(s) by inhalation every six hours for wheezing albuterol 90 mcg/actuation inhaler Indications: Acute bronchitis, unspecified organism Inhale 2 puffs every 6 hours if needed for wheezing. 18 g 11/29/2023 11/28/2024 Active Apple Cider Vinegar (4 sources) take 1 tablet by mouth once daily APPLE CIDER VINEGAR ORAL Take 1 tablet by mouth once daily. Active azithromycin 250 mg oral tablet (20 sources) Macrolide Antimicrobial Start: 11-29-2023 End: 12-04-2023 azithromycin (Zithromax Z-Keon) 250 mg tablet Indications: Acute bronchitis, unspecified organism Take 2 tablets (500 mg) on Day 1, followed by 1 tablet (250 mg) once daily on Days 2 through 5. 6 tablet 11/29/2023 12/04/2023 Active Start: 02-09-2023 End: 08-14-2023 Azithromycin (Zithromax Z-Pa k) 250 mg tablet Discontinued 0 PO .COMPLEX 6 0 February 09, 2023 12:44pm August 14, 2023 6:46pm For 250 mg dose pack: take 500 mg today (day 1), then 250 mg for 4 days (days 2-5) PO B complex C no.10/folic acid (B COMPLEX WITH C 10-FOLIC ACID ORAL) (4 sources) Start: 03-21-2021 B complex C no .10/folic acid (B COMPLEX WITH C 10-FOLIC ACID ORAL) Take by mouth once daily. 03/21/2021 Active B complex with C-folic acid (Nephronex) 900 mcg/5 mL liquid (2 sources) Start: 03-21-2021 B complex with C-folic acid (Nephronex) 900 mcg/5 mL liquid 03/21/2021 Active Start: 03-21-2021 B complex with C-folic acid (Nephronex) 900 mcg/5 mL liquid cholecalciferol 0.025 mg oral capsule (20 sources) Vitamin D Start: 07-12-2022 take 1 capsule by mouth once daily Cholecalciferol (Vitamin D3) 25 mcg (1,000 unit) capsule Active 25 ug PO DAILY July 12, 2022 12:00am Start: 09-30-2021 take 1 tablet by aretha th once daily cholecalciferol (Vitamin D-3) 25 MCG (1000 UT) tablet Take 1 tablet (25 mcg) by mouth once daily. 09/30/2021 Active Start: 03-21-2021 cholecalcifero l, vitamin D3, (VITAMIN D3) 100 mcg (4,000 unit) cap folic acid 1 mg oral tablet (17 sources) Start: 07-12-2022 take 1 tablet by mouth once daily Folic Acid 1 mg tablet Active 1 mg PO DAILY July 12, 2022 12:00am hydroxychloroquine sulfate 200 mg oral tablet (1 source) Antimalarial, Antirheumatic Agent take 1 tablet by mouth twice daily hydroxychloroquine (Plaquenil) 200 mg tablet Take 1 tablet (200 mg) by mouth 2 times a day. 0 Active levothyroxine sodium 0.025 mg oral tablet (20 sources) l-Thyroxine Start: 06-21-2022 take 1 tablet by mouth every other day Levothyroxine 25 mcg tablet Active 25 ug PO EVERY OTHER DAY July 12, 2022 12:00am Start: 09-30-2021 take 1 tablet by aretha th every other day Levothyroxine Sodium 25 MCG Oral Tablet TAKE 1 TABLET EVERY OTHER DAY Quantity: 15 Refills: 5 Ordered: 22-Jan-2022 Pat Ceballos DO Start : 30-Sep-2021 Active Multivitamin (One Daily Multivitamin) tablet (7 sources) Start: 07-31-2024 take 1 tablet by mouth once daily Multivitamin (One Daily Multivitamin) tablet Active 1 {tbl} PO daily July 31, 2024 12:00am multivitamin tablet (8 sources) Start: 09-30-2021 take 1 tablet by mouth once daily multivitamin tablet Take 1 tablet by mouth once daily. 09/30/2021 Active Start: 09-30-2021 take 1 tablet by aretha th once daily multivitamin tablet Take 1 tablet by mouth once daily. 0 09/30/2021 Active Start: 09-30-2021 multivitamin t ablet Take by mouth q 24 HR. 0 09/30/2021 Active Comment on above: Take by mouth q 24 H R. sucralfate 1000 mg oral tablet (1 source) Aluminum Complex Start: 11-20-19 End: 01-19-20 take 1 tablet by mouth four times daily sucralfate (CARAFATE) 1 gram tablet Take 1 tablet by mouth four times daily. 120 tablet 1 11/19/2021 01/18/2022 Active Comment on above: Take 1 tablet by aretha th four times daily. triamcinolone acetonide 0.25 mg/ml topical cream (20 sources) Corticosteroid Start: 09-24-19 triamcinolone (Kenalog) 0.025 % cream Indications: Eczema, unspecified type APPLY 2 OR 3 TIMES A DAY TO AFFECTED AREA 80 g 0 09/23/2022 Active Start: 07-12-2022 End: 12-24-2022 Triamcinolone Acetonide 0.02 5 % cream Discontinued NMA TOPICAL July 12, 2022 12:00am December 24, 2022 8:22am Start: 07-12-2022 End: 12-24-2022 Triamcinolone Acetonide Disc ontinued G TOPICAL July 12, 2022 12:00am December 24, 2022 8:22am Start: 04-04-2022 triamcinolone (Kenalog) 0.025 % cream APPLY 2 OR 3 TIMES A DAY TO AFFECTED AREA 0 04/04/2022 Active Start: 03-25-2022 Triamcinolone Acetonide 0.025 % External Cream APPLY 2-3 TIMES DAILY TO AFFECTED AREA(S). Quantity: 1 Refills: 1 Ordered: 25-Mar-2022 Walter Hermosillo PA-C Start : 25-Mar-2022 Active Vitamin B Complex (B Complex-Vitamin B12) tablet (17 sources) Start: 07-12-2022 Vitamin B Comp jeff (B Complex-Vitamin B12) tablet Active 1 {tbl} PO DAILY July 12, 2022 12:00am Start: 07-12-2022 take 1 tablet by aretha th once daily Vitamin B Complex (B Complex-Vitamin B12) tablet Active 1 TABLET PO DAILY July 11, 2022 11:00pm Start: 07-12-2022 take 1 tablet by aretha th once daily Vitamin B Complex (B Complex-Vitamin B12) tablet Active 1 TABLET PO DAILY July 12, 2022 12:00am Completed/Discontinued Medications Medication Drug Class(es) Dates Sig (Normalized) Sig (Original) acetaminophen 325 mg oral tablet (13 sources) Start: 07-03-2024 End: 07-27-2024 take 2 tablets by mouth every four hours as needed for pain Acetaminophen (Tylenol) 325 mg tablet Discontinued 650 mg PO Q4H as needed for pain July 03, 2024 12:00am July 27, 2024 2:25pm take 2 tablets by mo uth every six hours as needed acetaminophen (Tylenol) 325 mg tablet Ta ke 2 tablets (650 mg) by mouth every 6 hours if needed for mild pain (1 - 3). Active B Complex Vitamins (w/ FA) Oral Capsule (17 sources) Start: 09-30-2021 B Complex Thomas mins (w/ FA) Oral Capsule Quantity: 0 Refills: 0 Ordered: 30-Sep-2021 Pat Ceballos DO Start : 30-Sep-2021 Active b complex vitamins capsule (4 sources) Start: 09-30-2021 End: 06-12-2024 b complex vitamins capsule T diamante by mouth. 09/30/2021 06/12/2024 Discontinued (Entered in Error) Start: 09-30-2021 b complex thomas mins capsule Take by mouth. 09/30/2021 Active Start: 09-30-2021 b complex thomas mins capsule Take by mouth. 0 09/30/2021 Active B Complex-Vitamin C-Folic Acid 900 mcg/5 mL liqd (1 source) Start: 03-21-2021 B Complex-Thomas min C-Folic Acid 900 mcg/5 mL liqd cider vinegar 300 mg oral tablet (17 sources) Start: 07-12-2022 End: 07-12-2024 take 1 tablet by mouth once daily Apple Cider Vinegar 300 mg tablet Discontinued 300 mg PO DAILY July 12, 2022 12:00am July 12, 2024 3:47am Start: 07-12-2022 Apple Cider Vi kylah Active MG PO July 12, 2022 12:00am 24 hr desvenlafaxine succinate 25 mg extended release oral tablet (4 sources) Serotonin and Norepinephrine Reuptake Inhibitor Start: 09-09-2024 End: 10-19-2024 take 1 tablet by mouth once daily, then take 1 tablet by mouth every twenty-four hours Desvenlafaxine Succinate (Pristiq) 25 mg tablet extended release 24 hr Discontinued 25 mg PO daily 30 September 09, 2024 12:00am October 19, 2024 3:03pm doxycycline monohydrate 100 mg oral capsule (7 sources) Tetracycline-class Drug Start: 07-30-2024 End: 09-27-2024 take 1 capsule by mouth twice daily Doxycycline Monohydrate 100 mg capsule Discontinued 100 mg PO TWICE A DAY 2 July 30, 2024 12:00am September 27, 2024 5:18pm hydrOXYzine hydrochloride 25 mg oral tablet (9 sources) Antihistamine Start: 09-30-2021 take 1 tablet by mouth every six hours as needed for anxiety hydrOXYzine HCl - 25 MG Oral Tablet take 1 tab every 6 hours as needed for anxiety/insomnia/n ausea Quantity: 30 Refills: 2 Ordered: 30-Sep-2021 Walter Hermosillo PA-C Start : 30-Sep-2021 Active iohexol (OMNIPaque) 350 mg iodine/mL solution 70 mL (1 source) Start: 07-11-2024 End: 07-11-2024 70 mL, intravenous, Once in imaging, Starting on Tue07/11/24 at 2158, For 1 dose ketoconazole 20 mg/ml medicated shampoo (20 sources) Azole Antifungal Start: 08-26-2022 ketoconazole (NIZOral) 2 % shampoo 1 APPLICATION DIRECTED 2-3 TIMES/WEEK. LATHER AND LEAVE ON SCALP FOR 5-10MIN, THEN RINSE 08/26/2022 Active Start: 07-12-2022 End: 08-14-2023 Ketoconazole 2 % shampoo Dis continued TOPICAL .q week October 13, 2022 4:39pm August 14, 2023 6:46pm loratadine 10 mg oral tablet (1 source) Start: 08-02-2012 take 1 tablet by mouth once daily loratadine (CLARITIN) 10 mg tablet Take 1 tablet by mouth once daily. 0 08/02/2012 Active Comment on above: Take 1 tablet by aretha th once daily. melatonin 3 mg oral capsule (20 sources) Start: 10-13-2022 End: 07-31-2024 take 1 capsule by mouth at bedtime as needed for sleep Melatonin 3 mg capsule Discontinued 3 mg PO BEDTIME as needed for sleep October 13, 2022 12:00am July 31, 2024 1:35pm methylPREDNISolone 4 mg oral tablet (9 sources) Corticosteroid Start: 09-27-2024 End: 10-03-2024 take 1 tablet by mouth once Methylprednisolone (Medrol (Keon)) 4 mg tablets,dose pack Discontinued 4 mg PO per package directions 21 6 0 September 27, 2024 12:00am October 02, 2024 12:00am October 03, 2024 12:07am Start: 11-29-2023 methylPREDNISo lone (Medrol Dospak) 4 mg tablets Indications: Acute bronchitis, unspecified organism Take as directed on package. 21 tablet 11/29/2023 Active 1 ml morphine sulfate 4 mg/ml prefilled syringe (3 sources) Opioid Agonist Start: 07-11-2024 End: 07-11-2024 Starting on Tue07/11/24 at 2236, For 1 dose, Created by cabinet override Start: 07-11-2024 End: 07-11-2024 4 mg, intravenous, Once, On Tue07/11/24 at 2235, For 1 dose Multivitamin Oral Tablet (17 sources) Start: 09-30-2021 take 1 tablet by mouth once daily Multivitamin Oral Tablet TAKE 1 TABLET DAILY. Quantity: 90 Refills: 3 Ordered: 30-Sep-2021 Pat Ceballos DO Start : 30-Sep-2021 Active 2 ml ondansetron 2 mg/ml injection (20 sources) Serotonin-3 Receptor Antagonist Start: 07-11-2024 End: 07-12-2024 4 mg, intravenous, Once, On Bisi 07/12/24 at 0045, For 1 dose, When administering via IV Push, administer over 3-5 minutes. Start: 07-05-2024 End: 07-27-2024 take 1 tablet by mouth every eight hours as needed for nausea and vomiting Ondansetron 4 mg tablet,disintegrating Discontinued 4 mg PO Q8H as needed for nausea and vomiting 14 0 July 05, 2024 12:00am July 27, 2024 2:25pm Start: 06-12-2024 End: 06-12-2024 4 mg, intravenous, Once, On Tue06/12/24 at 1925, For 1 dose, When administering via IV Push, administer over 3-5 minutes. Start: 06-12-2024 End: 06-12-2024 Starting on Tue06/12/24 at 1 921, For 1 dose, Created by cabinet override When administering via IV Push, administer over 3-5 minutes. Start: 08-14-2023 End: 07-03-2024 take 1 tablet by mouth every eight hours as needed for nausea Ondansetron 4 mg tablet,disintegrating Discontinued 4 mg PO EVERY 8 HOURS NEEDED as needed for Nausea 14 0 August 14, 2023 12:00am July 03, 2024 11:36am oxyCODONE hydrochloride 5 mg oral tablet (9 sources) Opioid Agonist Start: 07-05-2024 End: 07-27-2024 take 5-10 mg by mouth every four hours as needed for pain Oxycodone 5 mg Tablet Discontinued 5 - 10 mg PO EVERY 4 HOURS NEEDED as needed for Pain Score 4-10 20 5 0 July 05, 2024 July 27, 2024 2:25pm Biliary dyskinesia Other specified diseases of gallbladder piperacillin 3000 mg / tazobactam 375 mg injection (1 source) Penicillin-clas s Antibacterial, beta Lactamase Inhibitor Start: 07-11-2024 End: 07-12-2024 3.375 g, intravenous, Administer over 0.5 Hours, Once, On Tue07/11/24 at 2330, For 1 dose, premix bag, Dosing of this medication varies based on severity of illness. Does this patient have sepsis or concern for sepsis (probable or documented infection plus systemic manifestations of infection)? No, Suspected Indication (Select all that apply): Abdominal Infection, Type of Therapy: Empiric, Type of infection: Healthcare-Associat ed, Indications: Abdominal Infection microencapsulated potassium chloride 20 meq extended release oral tablet (1 source) Start: 06-12-2024 End: 06-12-2024 40 mEq, oral, Once, On Tue06/12/24 at 2000, For 1 dose, Best given with food and a glass of water to minimize gastric irritation. Do not crush or chew. predniSONE 10 mg oral tablet (20 sources) Start: 02-09-2023 End: 02-24-2023 Prednisone 10 mg tablet Discontinued 10 mg PO .COMPLEX 35 February 09, 2023 1:00am February 23, 2023 1:00am February 24, 2023 1:05am 10 mg orally; 40mg x5 days, 20mg x5 days, 10mg x5 days Start: 02-09-2023 End: 02-24-2023 Prednisone Discontinued 10 M G PO .COMPLEX 35 February 09, 2023 1:00am February 24, 2023 1:05am 10 mg orally; 40mg x5 days, 20mg x5 days, 10mg x5 days Start: 10-11-2022 End: 12-24-2022 take 4 tablets by mouth once daily, then take 3 tablets by mouth once daily, then take 2 tablets by mouth once daily, then take 1 tablet by mouth once daily Prednisone 10 mg tablet Discontinued 10 mg PO As Directed October 11, 2022 12:00am December 24, 2022 8:21am 4 tablets daily x3 days, then 3 tablets daily x3 days, then 2 tablets daily x3 days, then 1 tablet daily x3 days Start: 07-12-2022 End: 12-24-2022 take 1 tablet by mouth once daily Prednisone 10 mg tablet Discontinued 10 mg PO DAILY July 12, 2022 12:00am December 24, 2022 8:21am Start: 03-25-2022 predniSONE 10 MG Oral Tablet Take 3 TABLETS DAILY FOR 2 DAYS, 2 TABLETS DAILY FOR 2 DAYS AND 1 TABLET DAILY FOR 2 DAYS, THEN STOP Quantity: 12 Refills: 1 Ordered: 25-Mar-2022 Walter Hermosillo PA-C Start : 25-Mar-2022 Active Probiotic Oral Tablet Delayed Release (9 sources) Start: 09-30-2021 Probiotic Oral Tablet Delayed Release Quantity: 0 Refills: 0 Ordered: 30-Sep-2021 Pat Ceballos DO Start : 30-Sep-2021 Active sertraline 25 mg oral tablet (9 sources) Serotonin Reuptake Inhibitor Start: 09-30-2021 take 1 tablet by mouth once daily Sertraline HCl - 25 MG Oral Tablet TAKE 1 TABLET DAILY. Quantity: 30 Refills: 2 Ordered: 30-Sep-2021 Walter Hermosillo PA-C Start : 30-Sep-2021 Active 1000 ml sodium chloride 9 mg/ml injection (2 sources) Start: 07-11-2024 End: 07-11-2024 1,000 mL, intravenous, at 999 mL/hr, Administer over 1 Hours, Once, On Tue07/11/24 at 2055, For 1 dose Start: 06-12-2024 End: 06-12-2024 1,000 mL, intravenous, at 99 9 mL/hr, Administer over 60 Minutes, Once, On Tue06/12/24 at 1840, For 1 dose sulfaSALAzine 500 mg delayed release oral tablet (12 sources) Aminosalicylate Start: 06-15-2023 End: 06-12-2024 take 1 tablet by mouth twice daily Sulfasalazine 500 mg tablet,delayed release (DR/EC) Discontinued 500 mg PO TWICE A DAY August 14, 2023 12:00am January 13, 2024 1:58pm Turmeric extract (14 sources) Start: 07-05-2024 End: 07-31-2024 turmeric (bulk) (Curcumin) Discontinued 1 NMA DAILY July 05, 2024 12:00am July 31, 2024 1:35pm Start: 07-05-2024 turmeric (bulk ) Active 1 NMA MC DAILY July 05, 2024 12:00am Start: 07-05-2024 turmeric (bulk ) Active DAILY July 05, 2024 12:00am take 1 tablet by mouth once mathew y TURMERIC ORAL Take 1 tablet by mouth once daily. Active TURMERIC ORAL Ta ke by mouth. Active Problems Active Problems Problem Classification Problem Date Documented Date Episodic/Chronic Abdominal pain (5 sources) Epigastric pain; Translations: [Epigastric pain] Onset: 07-11-2024 Episodic Allergic reactions (20 sources) Eczema; Translations: [Contact dermatitis and other eczema, unspecified cause] 10-11-2022 Episodic Anxiety disorders (20 sources) Mixed anxiety and depressive disorder; Translations: [Anxiety state, unspecified] Onset: 07-02-2022 07-02-2022 Chronic Biliary tract disease (20 sources) Chronic cholecystitis; Translations: [Chronic cholecystitis] Onset: 07-02-2022 Resolved: 07-02-2022 07-02-2022 Episodic Cancer; other and unspecified primary (16 sources) History of prolactinoma; Translations: [Personal history of other benign neoplasm] 12-24-2022 Episodic Comment on above: 2013/TREATED/RESOLVE D AT THIS TIME Cardiac dysrhythmias (19 sources) Multiple premature ventricular complexes; Translations: [Ventricular premature depolarization] 10-11-2022 Chronic Comment on above: pt states was seen b y dr. levine and cleared but recently pvc's have gotten more frequent and worse as of 01/2024 Cardiac dysrhythmias (20 sources) Tachycardia; Translations: [Tachycardia, unspecified] Onset: 07-02-2022 Resolved: 07-02-2022 09-27-2021 Episodic E Codes: Natural/environment (15 sources) Tick bite; Translations: [Bitten or stung by nonvenomous insect and other nonvenomous arthropods, initial encounter] Onset: 07-31-2024 07-30-2024 Episodic Fluid and electrolyte disorders (3 sources) Hypokalemia; Translations: [Hypokalemia] Onset: 06-12-2024 06-12-2024 Episodic Genitourinary symptoms and ill-defined conditions (3 sources) Dysuria; Translations: [Dysuria] Episodic Headache; including migraine (1 source) Acute headache; Translations: [Acute intractable headache, unspecified headache type] 02-28-2023 Episodic Headache; including migraine (2 sources) Headache; including migraine; Translations: [Headache, unspecified] Onset: 02-28-2023 Immunizations and screening for infectious disease (19 sources) Patient encounter status; Translations: [Encounter for screening for infections with a predominantly sexual mode of transmission] 12-24-2022 Episodic Joint disorders and dislocations; trauma-related (19 sources) Patellofemoral stress syndrome; Translations: [Patellofemoral disorders, right knee] 07-12-2022 Chronic Malaise and fatigue (14 sources) Malaise; Translations: [Other malaise] Onset: 07-31-2024 03-06-2023 Episodic Menstrual disorders (20 sources) Abnormal menstrual cycle; Translations: [Unspecified disorders of menstruation and other abnormal bleeding from female genital tract] Onset: 07-02-2022 Resolved: 07-02-2022 07-02-2022 Chronic Miscellaneous mental health disorders (20 sources) Psychophysiologic insomnia; Translations: [Persistent disorder of initiating or maintaining sleep] Onset: 07-02-2022 07-02-2022 Chronic Nonmalignant breast conditions (20 sources) Breast lump; Translations: [Unspecified lump in unspecified breast] Onset: 04-27-2024 04-27-2024 Episodic Comment on above: diagnostic mammogram and ultrasound right breastprolactin levels imaging Nonspecific chest pain (4 sources) Atypical chest pain; Translations: [Other chest pain] Onset: 06-12-2024 06-12-2024 Episodic Other complications of ; puerperium affecting management of mother (14 sources) Deliveries by ; Translations: [ delivery, without mention of indication, unspecified as to episode of care or not applicable] Episodic Comment on above: 09/13/2016_39weeks 3 days_Male_8# 2oz_Failure to progress; Other infections; including parasitic (19 sources) Late effects of other and unspecified infectious and parasitic diseases; 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] 12-24-2022 Chronic Other infections; including parasitic (14 sources) History of human papilloma virus infection; Translations: [Personal history of other infectious and parasitic diseases] Episodic Other injuries and conditions due to external causes (1 source) Unspecified injury of unspecified wrist, hand and finger(s), initial encounter; Translations: [Unspecified injury of unspecified wrist, hand and finger(s), initial encounter] Onset: 10-03-2024 Episodic Other lower respiratory disease (15 sources) Cough; Translations: [Cough] 02-09-2023 Episodic Other lower respiratory disease (10 sources) Hemoptysis; Translations: [Hemoptysis] 12-09-2023 Episodic Other non-traumatic joint disorders (1 source) Multiple joint pain; Translations: [Pain in unspecified joint] 07-26-2022 Episodic Other non-traumatic joint disorders (17 sources) Pain in right knee; Translations: [Patellofemoral arthralgia of right knee] 07-12-2022 Episodic Other non-traumatic joint disorders (20 sources) Pain in unspecified joint; Translations: [Dsxc-CPVZH-06 syndrome manifesting as chronic joint pain] Onset: 08-07-2022 Episodic Comment on above: did report elevated MARY count, has appt with nocturnist physician. Other nutritional; endocrine; and metabolic disorders (7 sources) Weight gain; Translations: [Abnormal weight gain] 07-26-2022 Episodic Other nutritional; endocrine; and metabolic disorders (10 sources) Weight increased; Translations: [Abnormal weight gain] 10-11-2022 Episodic Other upper respiratory infections (10 sources) Acute upper respiratory infection; Translations: [Acute upper respiratory infection, unspecified] 12-09-2023 Episodic Residual codes; unclassified (15 sources) Reduced libido; Translations: [Decreased libido] 12-24-2022 Episodic Comment on above: counseling strongly encouraged Residual codes; unclassified (4 sources) Decreased libido; Translations: [Decreased libido] 12-24-2022 Episodic Residual codes; unclassified (12 sources) Flushing; Translations: [Flushing] 07-31-2024 Episodic Comment on above: hormone levels, tshi f normal is not interested in any hormonal supplements, may be interested in revaree. Rheumatoid arthritis and related disease (1 source) Inflammatory polyarthropathy; Translations: [Inflammatory polyarthropathy] Onset: 09-06-2024 Chronic Sprains and strains (20 sources) Strain of calf muscle; Translations: [Strain of other muscle(s) and tendon(s) at lower leg level, right leg, initial encounter] 04-12-2022 Episodic Thyroid disorders (20 sources) Subclinical hypothyroidism; Translations: [Other specified acquired hypothyroidism] Onset: 07-02-2022 07-26-2022 Chronic Unclassified (2 sources) HEART RACING 09-27-2021 Comment on above: HEART RACING Unclassified (1 source) Increased heart rate 09-27-2021 Unclassified (1 source) TSH elevation 09-27-2021 Unclassified (1 source) Cough, unspecified; Translations: [Cough, unspecified] Onset: 12-22-2023 Past or Other Problems Problem Classification Problem Date Documented Date Episodic/Chronic Acute bronchitis (3 sources) Acute bronchitis; Translations: [Acute bronchitis, unspecified] Onset: 11-29-2023 11-29-2023 Episodic Cancer; other and unspecified primary (2 sources) Personal history of other benign neoplasm; Translations: [Personal history of other benign neoplasm] Onset: 02-28-2023 Episodic Other and unspecified benign neoplasm (20 sources) Prolactinoma; 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] Onset: 07-02-2022 Resolved: 07-02-2022 07-02-2022 Episodic Other screening for suspected conditions (not mental disorders or infectious disease) (6 sources) Raised TSH level; Translations: [Nonspecific abnormal results of function study of thyroid] Onset: 10-13-2023 09-27-2021 Episodic Other skin disorders (20 sources) Loss of hair; Translations: [Alopecia, unspecified] Onset: 07-02-2022 Resolved: 07-02-2022 07-02-2022 Episodic Unclassified (14 sources) Finding of menstrual bleeding; Translations: [Menstruation] Comment on above: Onset age 16 years; Unclassified (6 sources) Onset: 02-28-2023 02-28-2023 Results Test Name Value Interpretation Reference Range Facility Breast Limited Unilateralon 10-16-2024 Breast Limited Unilateral [facility] Imaging Services [address] [place] [id number] Breast Limited Unilateral MR#: [id number] Acct: [id number] Name: DALLAS FARIAS Rep #: [id number] : 1985 F 39 From: Marin queen MD PCP: Nona Moreno NP-C Status: REG CLI Study: Breast Limited Unilateral Date of Exam: Exam# [id number] Ordering Dr: Norma Dash NP [employer] -C PROCEDURE: BREAST LIMITED UNILATERAL N/A REASON FOR EXAM: F, Age 39 y/o , RIGHT BREAST MASS COMPARISON: Prior mammogram done earlier in the day.. TECHNIQUE: BREAST LIMITED UNILATERAL FINDINGS: The superior retroareolar region of the right breast was examined with ultrasound. There is a 6 mm x 10 mm x 6 mm well-defined hypoechoic nodule at the 12 o'clock position of the breast at 2 cm from the nipple. This may represent a fibroadenoma although tissue diagnosis recommended. US/Breast Limited Unilateral IMPRESSION: 6 mm x 10 mm x 6 mm well-defined hypoechoic nodule at the 12 o'clock position of the breast at 2 cm from the nipple as described. Biopsy recommended. BI-RADS 4: SUSPICIOUS RECOMMENDATION: Biopsy Recommended Reading Location: [id number] CC: WANG Moreno; WANG Dash Billposter: Signed Normal [facility] DIAG MAMM W/CAD, UNILATon DIAG MAMM W/CAD, UNILAT [facility] Imaging Services [address] [place] [id number] DIAG MAMM W/CAD, UNILAT MR#: [id number] Acct: [id number] Name: DALLAS FARIAS Rep #: [id number] : 1985 F 39 From: Marin queen MD PCP: WANG Najera Status: [facility] Study: DIAG MAMM W/CAD, UNILAT Date of Exam: 10/16/24 Exam# [id number] Ordering Dr: Norma Dash NP [employer] -C EXAM: DIAG MAMM W/CAD, UNILAT 10/16/2024 CLINICAL HISTORY: F, Age 39 y/o , RIGHT BREAST MASS. Rash above the nipple. TECHNIQUE: DIAG MAMM W/CAD, UNILAT. COMPARISON: Prior exam(s) dated April 30, 2024.. FINDINGS: TISSUE DENSITY: The breasts are extremely dense, which lowers the sensitivity of mammography. Bilateral Breast Mammographic Findings: No significant masses, calcifications or other abnormalities are identified. No suspicious masses, areas of developing architectural distortion, or suspicious calcifications. There has been no significant interval change. BI/DIAG MAMM W/CAD, UNILAT IMPRESSION: Stable examination. With the patient's history of lump/rash along the superior aspect of the right nipple, targeted ultrasound correlation recommended. OVERALL FINAL ASSESSMENT BI-RADS 0: INCOMPLETE - NEED ADDITIONAL IMAGING EVALUATION. RECOMMENDATION: Ultrasound Recommended A letter with findings and recommendations will be mailed to the patient. Reading Location: [id number] CC: WANG Moreno; WANG Dash Billposter: Signed Normal [facility] New Car Sales Manager Office Visit Reporton 10-09-2024 New Car Sales Manager Office Visit Report [facility] [address], [address] [place] [address] OFFICE VISIT Date of Service: 10/09/24 MR#: [id number] Acct: [id number] Name: DALLAS FARIAS Rep #: [id number] : 1985 Provider: WANG rodríguez Age/Sex: 39/F [place] [facility] [place]: Signed Intake Vital Signs 09/27/24 12:23 10/09/24 13:48 10/09/24 13:53 Height 5 ft 4 in 5 ft 4 in 5 ft 4 in Weight: 169 lb BMI 29.0 BP 116/78 102/70 Blood Pressure Location Lt brachial Position Sitting Respiration 15 Pulse 70 Pulse Source NIBP Temp 98.4 F Pulse Oximetry (%) 99 Oxygen Delivery Method room air Intake Visit Reasons: R Breast Lump painful, red, warm, mild swelling Chief Complaint: R breast lump Buzzle Buffer Required: No Is patient in pain?: No Allergies gluten Allergy (Verified 10/09/24 13:47) Abd cramps/diarrhea Medications ???Medication ???Instructions ???Recorded ???Confirmed ???Type cholecalciferol (vitamin D3) 25 25 mcg PO DAILY 07/12/22 10/09/24 History mcg (1,000 unit) capsule folic acid 1 mg tablet 1 mg PO DAILY 07/12/22 10/09/24 Hi story levothyroxine 25 mcg tablet 25 mcg PO QODAY 07/12/22 10/09/24 History vitamin B complex (B 1 tab PO DAILY 07/12/22 10/09/24 H istory Complex-Vitamin B12 tablet) multivitamin (One Daily 1 tab PO QDAY 07/31/24 10/09/24 Hi story Multivitamin tablet) desvenlafaxine succinate 25 mg 25 mg PO QDAY #30 tabs 09/09/24 Rx tablet,extended release 24 hr (Pristiq) Is last menstrual period known: Yes Last Menstrual Period: 09/26/24 Post menopausal: No Patient : No : No PFSH Medical History Tick bite Anxiety Rheumatoid arthritis Back pain Syncope Gastric reflux Shortness of breath on exertion Leg cramps History of edema History of irregular heartbeat Wears glasses Alcohol use Anemia Migraine headache Dietary restriction History of IBS Former smoker History of echocardiogram Cardiology follow-up encounter Allergic dermatitis Depression PVC's (premature ventricular contractions) Palpitations Polyarthralgia Hypothyroidism History of prolactinoma Surgical History S/P cholecystectomy H/O section Family History Mother Hearing loss Grandmother Diabetes Colon cancer PVC (premature ventricular contraction) Grandfather Diabetes Crohn's disease Heart disease Grandmother Alzheimers disease Social History current occupation: [employer] Smoking Status: Former smoker how long ago did patient quit smokin alcohol intake: current substance use type: does not use caffeine: No frequency: daily HPI R Breast Lump painful, red, warm, mild swelling Details: DALLAS FARIAS is a 39 year old who presents for right breast mass noted 4 days ago. States area was more red and painful initially and that has decreased. Denies fever/malaise. Female Reproductive History Last Menstrual Period: 09/26/24 ROS Const Constitutional: Reports system reviewed and no additional complaints, except as documented : Reports system reviewed and no additional complaints, except as documented Skin Skin/Breast: Reports as per HPI Psych Psych: Reports system reviewed and no additional complaints, except as documented Exam Const General: cooperative, no acute distress and well developed Orientation: oriented x3 Chest Breast inspection: abnormal inspection of the breast (slightly pink just above areola, no retractions or dimpling) Breast palpation: normal palpation of the breasts (left) and abnormal palpation of the breast (right 1X2cm area, nodular, mobile, slightly tender) Resp Effort Inspection: normal respiratory effort Coding Level of Care Code Off vis,est,level 3 Diagnoses Mass overlapping multiple quadrants of right breast N63.15 Breast mass location: overlapping quadrants Assessment and Plan Assessment and Plan (1) Breast mass, right: Status: Acute Qualifiers: Breast mass location: overlapping quadrants Qualified Code(s): N63.15 - Unspecified lump in the right breast, overlapping quadrants Comment: imaging Orders: Orders Breast Limited Unilateral Today N63.10 - Unspecified lump in the right breast, unspecified quadrant DIAG MAMM W/CAD, UNILAT Today N63.10 - Unspecified lump in the right breast, unspecified quadrant Plan Diagnostic right mammogram and ultrasound, call results. 10/09/24 1409 Date Norma Dash NP [employer]-C Cosigner Signature: Date (more content not included)... Normal [facility] Urgent Care Visit Reporton 0 09-27-2024 Urgent Care Visit Report [facility] [address], [address] [place] [address] OFFICE VISIT Date of Service: 09/27/24 MR#: [id number] Acct: [id number] Name: DALLAS FARIAS Rep #: [id number] : 1985 Provider: LLOYD Medina Age/Sex: 39/F [place] [facility] Status: Signed Intake Vital Signs 07/31/24 13:28 09/27/24 12:23 Height 5 ft 4 in 5 ft 4 in Weight: 175 lb 4 oz BMI 30.0 BP 103/72 116/78 Blood Pressure Location Lt brachial Position Sitting Respiration 15 Pulse 70 Pulse Source NIBP Temp 98.4 F Temp Source Oral Pulse Oximetry (%) 99 Oxygen Delivery Method room air Intake Visit Reasons: L WRIST INJURY Chief Complaint: left wrist pain Buzzle Buffer Required: No Is patient in pain?: Yes Allergies gluten Allergy (Verified 09/27/24 17:18) Abd cramps/diarrhea Medications ???Medication ???Instructions ???Recorded ???Confirmed ???Type cholecalciferol (vitamin D3) 25 25 mcg PO DAILY 07/12/22 07/31/24 History mcg (1,000 unit) capsule folic acid 1 mg tablet 1 mg PO DAILY 07/12/22 07/31/24 Hi story levothyroxine 25 mcg tablet 25 mcg PO QODAY 07/12/22 07/31/24 History vitamin B complex (B 1 tab PO DAILY 07/12/22 07/31/24 H istory Complex-Vitamin B12 tablet) multivitamin (One Daily 1 tab PO QDAY 07/31/24 07/31/24 Hi story Multivitamin tablet) desvenlafaxine succinate 25 mg 25 mg PO QDAY #30 tabs 09/09/24 R x tablet,extended release 24 hr (Pristiq) methylprednisolone 4 mg tablets in 4 mg PO PER PKG DIR 6 days #21 t abs 09/27/24 09/27/24 Rx a dose pack (Medrol ([place])) Is last menstrual period known: No Post menopausal: No Patient : No Have you fallen in the past year?: Yes Nurse's Note: left wrist pain into fingers x 3 days, intermittently into elbow. denies injury or trauma. 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 bought brace which helped slightly, has only worn during the day. one prior occurrence which resolved on its own. [facility] Medical History Tick bite Anxiety Rheumatoid arthritis Back pain Syncope Gastric reflux Shortness of breath on exertion Leg cramps History of edema History of irregular heartbeat Wears glasses Alcohol use Anemia Migraine headache Dietary restriction History of IBS Former smoker History of echocardiogram Cardiology follow-up encounter Allergic dermatitis Depression PVC's (premature ventricular contractions) Palpitations Polyarthralgia Hypothyroidism History of prolactinoma Surgical History S/P cholecystectomy H/O section Family History Mother Hearing loss Grandmother Diabetes Colon cancer PVC (premature ventricular contraction) Grandfather Diabetes Crohn's disease Heart disease Grandmother Alzheimers disease Social History current occupation: [employer] Smoking Status: Former smoker how long ago did patient quit smokin alcohol intake: current substance use type: does not use caffeine: No frequency: daily HPI HPI Chief Complaint: left wrist pain Details: DALLAS FARIAS, is a 39 F who presents to the office today for complaint of left wrist pain for the past several days. Patient states that she noticed when she awoke 3 days ago she had substantial left wrist pain. She does state having flares of her rheumatoid arthritis during her menstrual cycles which she is currently in one. She denies numbness, tingling or loss of range of motion however states that range of motion does cause more pain to the left wrist and hand. No recent injuries or previous history of trauma to the left wrist or hand. No other associated symptoms or alleviating/aggravatin g factors. ROS Const Constitutional: No other (as above) Exam Const General: cooperative and healthy appearing Skin General: no rashes or lesions noted Neuro General: patient alert Extrem Other: There is a small palpable lump dorsal left wrist at the junction between the ulna, radius and wrist bones there is painful to palpation. Appropriate range of motion of the left wrist along with appropriate sensation light touch distally and capillary refill intact throughout. Psych Appearance: grossly normal Mental Status: mental status grossly normal Coding Level of Care Code Off vis,est,level 4 Diagnoses Strain of left wrist S66.912A Assessment and Plan Assessment and Plan (1) Strain of left wrist: Status: Acute Orders: Orders Wrist min 3 Views Today S69.90XA - Unspecified injury of unspecified wrist, hand and finger(s), initial encounter Medications: New methylprednis (more content not included)... Normal [facility] Wrist min 3 Viewson 09-28-19 25 Wrist min 3 Views [facility] Imaging Services [address] [place], [place] [address] Wrist min 3 Views MR#: [id number] Acct: [id number] Name: DALLAS FARIAS Rep #: [id number] : 1985 F 39 From: Walter Subramanian MD PCP: WANG Najera Status: REG CLI Study: Wrist min 3 Views Date of Exam: 09/27/24 Exam# [id number] Ordering Dr: Gualberto Duran PROCEDURE: WRIST MIN 3 VIEWS 09/27/2024 REASON FOR EXAM: WRIST INJURY TECHNIQUE: WRIST MIN 3 VIEWS COMPARISON: Reviewed FINDINGS: Osseous structures intact. Joint spaces preserved. Mild soft tissue swelling. RAD/Wrist min 3 Views IMPRESSION: No acute radiographic process. Reading Location: [facility] CC: [employer]ER-C Nona Moreno; LLOYD Medina Billposter: Signed Normal [facility] Absolute lymphocyte countOrd ered By: Rea Nuñez on 08-31-2024 Lymphocytes Auto (Unsp spec) [#/Vol] 1.77 10*3/uL 0.83-4.51 [facility] Absolute neutrophil countOrd ered By: Rea Nuñez on 08-31-2024 Neutrophils (Bld) [#/Vol] 2.8 10*3/uL 2.0-7.7 [facility] Anion gap in Serum or Plasma Ordered By: Rea Nuñez on 08-31-2024 Anion gap [Moles/Vol] 10 mmol/L 5-15 [facility] Automated lymphocyte count a s percentage of total leukocytesOrdered By: Rea Nuñez on 08-31-2024 Lymphocytes/100 WBC Auto (Unsp spec) 33.2 % 19-41 [facility] BUN/creatinine ratioOrdered By: Reatigist Nuñez on 08-31-2024 Urea nitrogen/Creatinine [Mass ratio] 14.7 mg/mg 10-20 [facility] Basophil percentageOrdered B y: Rea Nuñez on 08-31-2024 Basophils/100 WBC (Bld) 1.1 % High 0-1 [facility] Bilirubin, totalOrdered By: Rea Nuñez on 08-31-2024 Bilirubin [Mass/Vol] 0.33 mg/dL 0.00-1.30 [facility] CBC W/Diff, Automatedon 08-19 Absolute Lymph 1.77 X10 3/uL Normal 0.83-4.51 [facility] Comment on above: Performed By: #### L 100.0100, L500.4050 #### [facility] [address] [place], [address] Absolute Neut 2.8 X10 3/uL Normal 2.0-7.7 [facility] Comment on above: Performed By: #### L 100.0100, L500.4050 #### [facility] [address] [place], [address] Basophils/100 WBC (Bld) 1.1 % High 0-1 [facility] Comment on above: Performed By: #### L 100.0100, L500.4050 #### [facility] [address] [place], [address] Eosinophils/100 WBC (Bld) 3.6 % Normal 0-5 [facility] Comment on above: Performed By: #### L 100.0100, L500.4050 #### [facility] [address] [place], [address] Erythrocyte distribution width (RBC) [Ratio] 13.5 % Normal 11.6-14.6 [facility] Comment on above: Performed By: #### L 100.0100, L500.4050 #### [facility] [address] [place], [address] Hematocrit (Bld) [Volume fraction] 37.1 % Normal 37-47 [facility] Comment on above: Performed By: #### L 100.0100, L500.4050 #### [facility] [address] [place], [address] Hemoglobin (Bld) [Mass/Vol] 12.0 g/dL Normal 12.0-15.0 [facility] Comment on above: Performed By: #### L 100.0100, L500.4050 #### [facility] [address] [place], [address] IG% 0.200 Normal 0.0-0.9 [facility] Comment on above: Result Comment: IG% - Immature Granulocytes (promyelocytes, myelocytes and metamyelocytes) > 1% indicates that a LEFT SHIFT is Present. Performed By: #### L 100.0100, L500.4050 #### [facility] [address] [place], [address] Lymphocytes/100 WBC (Bld) 33.2 % Normal 19-41 [facility] Comment on above: Performed By: #### L 100.0100, L500.4050 #### [facility] [address] [place], [address] MCH (RBC) [Entitic mass] 31.6 pg Normal 27.0-32.0 [facility] Comment on above: Performed By: #### L 100.0100, L500.4050 #### [facility] [address] [place], [address] MCHC (RBC) [Mass/Vol] 32.3 g/dL Normal 32-36 [facility] Comment on above: Performed By: #### L 100.0100, L500.4050 #### [facility] [address] [place], [address] MCV (RBC) [Entitic vol] 97.6 fL Normal 81-99 [facility] Comment on above: Performed By: #### L 100.0100, L500.4050 #### [facility] [address] [place], [address] Monocytes/100 WBC (Bld) 10.1 % High 0-10 [facility] Comment on above: Performed By: #### L 100.0100, L500.4050 #### [facility] [address] [place], [address] Neutrophils/100 WBC (Bld) 51.8 % Normal 47-70 [facility] Comment on above: Performed By: #### L 100.0100, L500.4050 #### [facility] [address] [place], [address] Nucleated RBC (Bld) [#/Vol] 0 10*3/uL Normal 0-5 [facility] Comment on above: Performed By: #### L 100.0100, L500.4050 #### [facility] [address] [place], [address] Platelet mean volume (Bld) [Entitic vol] 11.7 fL Normal 6.2-12.0 [facility] Comment on above: Performed By: #### L 100.0100, L500.4050 #### [facility] [address] [place], [address] Platelets (Bld) [#/Vol] 248 10*3/uL Normal 150-450 [facility] Comment on above: Performed By: #### L 100.0100, L500.4050 #### [facility] [address] [place], [address] RBC (Bld) [#/Vol] 3.80 10*6/uL Low 4.2-5.4 [facility] Comment on above: Performed By: #### L 100.0100, L500.4050 #### [facility] [address] [place], [address] RDW [place] 48.7 fl High 35.1-43.9 [facility] Comment on above: Performed By: #### L 100.0100, L500.4050 #### [facility] [address] [place], [address] WBC (Bld) [#/Vol] 5.3 10*3/uL Normal 4.4-11.0 [place] Comment on above: Performed By: #### L 100.0100, L500.4050 #### [facility] [address] [place], [address] Carbon dioxide, total [Moles /volume] in Central venous bloodOrdered By: Rea Nuñez on 08-31-2024 CO2 [Moles/Vol] 23.6 mmol/L 21.0-32.0 [facility] Chloride assayOrdered By: Lloyd Nuñez on 08-31-2024 Chloride [Moles/Vol] 105 mmol/L 98-108 [facility] Comprehensive Metabolic Prof ilon 08-31-2024 Albumin [Mass/Vol] 4.0 g/dL Normal 3.5-5.0 [place] Comment on above: Performed By: #### L 100.0100, L500.4050 #### [facility] [address] [place], [address] Albumin/Globulin [Mass ratio] 1.5 {ratio} Normal 0.9-2.4 [facility] Comment on above: Performed By: #### L 100.0100, L500.4050 #### [facility] [address] [place], [address] ALK PHOS 63 U/L Normal 35-104 [facility] Comment on above: Performed By: #### L 100.0100, L500.4050 #### [facility] [address] [place], [address] ALT [Catalytic activity/Vol] 20 U/L Normal <=34 [facility] Comment on above: Performed By: #### L 100.0100, L500.4050 #### [facility] [address] [place], [address] AST [Catalytic activity/Vol] 20 U/L Normal <=31 [facility] Comment on above: Performed By: #### L 100.0100, L500.4050 #### [facility] [address] [place], [address] Bilirubin [Mass/Vol] 0.33 mg/dL Normal 0.00-1.30 [facility] Comment on above: Performed By: #### L 100.0100, L500.4050 #### [facility] [address] [place], [address] BUN/CRE 14.7 RATIO Normal 10-20 [facility] Comment on above: Performed By: #### L 100.0100, L500.4050 #### [facility] [address] [place], [address] Calcium [Mass/Vol] 8.7 mg/dL Normal 7.6-11.0 [place] Comment on above: Performed By: #### L 100.0100, L500.4050 #### [facility] [address] [place], [address] Chloride [Moles/Vol] 105 mmol/L Normal 98-108 [facility] Comment on above: Performed By: #### L 100.0100, L500.4050 #### [facility] [address] [place], [address] CO2 [Moles/Vol] 23.6 mmol/L Normal 21.0-32.0 [facility] Comment on above: Performed By: #### L 100.0100, L500.4050 #### [facility] [address] [place], [address] Creatinine [Mass/Vol] 0.80 mg/dL Normal 0.70-1.20 [facility] Comment on above: Performed By: #### L 100.0100, L500.4050 #### [facility] [address] [place], [address] GAP 10 Normal 5-15 [facility] Comment on above: Performed By: #### L 100.0100, L500.4050 #### [facility] [address] [place], [address] GFR/1.73 sq M.predicted among non-blacks MDRD (S/P/Bld) [Vol rate/Area] 97 mL/min/{1.73_m2} Normal >60 [facility] Comment on above: Result Comment: mL/m in/1.73m2 CKD-EPI Creatinine Equation (2020) Performed By: #### L 100.0100, L500.4050 #### [facility] [address] [place], [address] Globulin (S) [Mass/Vol] 2.6 g/dL Normal 2.2-4.2 [facility] Comment on above: Performed By: #### L 100.0100, L500.4050 #### [facility] [address] [place], [address] Glucose [Mass/Vol] 85 mg/dL Normal 70-99 [place] Comment on above: Performed By: #### L 100.0100, L500.4050 #### [facility] [address] [place], [address] Potassium [Moles/Vol] 3.9 mmol/L Normal 3.3-5.1 [facility] Comment on above: Performed By: #### L 100.0100, L500.4050 #### [facility] [address] [place], [address] Sodium [Moles/Vol] 138 mmol/L Normal 133-145 [place] Comment on above: Performed By: #### L 100.0100, L500.4050 #### [facility] [address] [place], [address] T PROT 6.6 g/dL Normal 5.9-8.4 [facility] Comment on above: Performed By: #### L 100.0100, L500.4050 #### [facility] [address] [place], [place], [address] Urea nitrogen [Mass/Vol] 12 mg/dL Normal 4-19 [facility] Comment on above: Performed By: #### L 100.0100, L500.4050 #### [facility] [address] [place], [place], [address] Eosinophil percentageOrdered By: Rea Nuñez on 08-31-2024 Eosinophils/100 WBC (Bld) 3.6 % 0-5 [facility] Erythrocyte distribution wid th ratioOrdered By: [facility] Joaquin on 08-31-2024 Erythrocyte distribution width (RBC) [Ratio] 13.5 % 11.6-14.6 [facility] Erythrocyte distribution wid th standard deviationOrdered By: Reatigist Nuñez on 08-31-2024 Erythrocyte distribution width (RBC) [Ratio] 48.7 fl High 35.1-43.9 [facility] Glomerular filtration rate ( GFR) estimation/1.73 sq m using serum, plasma, or whole bOrdered By: Rea Nuñez on 08-31-2024 GFR/1.73 sq M.predicted among non-blacks MDRD (S/P/Bld) [Vol rate/Area] 97 mL/min/{1.73_m2} >60 [facility] Comment on above: mL/min/1.73m2 CKD-EP I Creatinine Equation (2020) Hematocrit Auto (Bld) [Volum e fraction]Ordered By: Rea Nuñez on 08-31-2024 Hematocrit (Bld) [Volume fraction] 37.1 % 37-47 [facility] Hemoglobin measurementOrdere d By: Rea Nuñez on 08-31-2024 Hemoglobin (Bld) [Mass/Vol] 12.0 g/dL 12.0-15.0 [facility] Immature granulocytes/100 WB C Auto (Bld)Ordered By: Rea Nuñez on 08-31-2024 Immature granulocytes/100 WBC (Bld) 0.200 % 0.0-0.9 [facility] Comment on above: IG% - Immature Granu locytes (promyelocytes, myelocytes and metamyelocytes) > 1% indicates that a LEFT SHIFT is Present. Laboratory - Chemistry and C hemistry - challengeOrdered By: Rea Nuñez on 08-31-2024 AST [Catalytic activity/Vol] 20 U/L <32 [facility] MCV (mean corpuscular volume ) determinationOrdered By: Rea Nuñez on 08-31-2024 MCV (RBC) [Entitic vol] 97.6 fL 81-99 [facility] Mean corpuscular hemoglobin (MCH) determinationOrdered By: Rea Nuñez on 08-31-2024 MCH (RBC) [Entitic mass] 31.6 pg 27.0-32.0 [facility] Mean corpuscular hemoglobin concentration (MCHC) determinationOrdered By: Rea Nuñez on 08-31-2024 MCHC (RBC) [Mass/Vol] 32.3 g/dL 32-36 [facility] Mean platelet volume determi nationOrdered By: Rea Nuñez on 08-31-2024 Platelet mean volume (Bld) [Entitic vol] 11.7 fL 6.2-12.0 [facility] Monocyte percentageOrdered B y: Rea Nuñez on 08-31-2024 Monocytes/100 WBC (Bld) 10.1 % High 0-10 [facility] Neutrophil percentageOrdered By: Rea Nuñez on 08-31-2024 Neutrophils/100 WBC (Bld) 51.8 % 47-70 [facility] Nucleated red blood cell per centageOrdered By: Rea Nuñez on 08-31-2024 Nucleated RBC/100 WBC (Bld) [Ratio] 0 % 0-5 [facility] Platelet countOrdered By: Lloyd Nuñez on 08-31-2024 Platelets (Bld) [#/Vol] 248 10*3/uL 150-450 [facility] Potassium measurement (mass/ volume)Ordered By: Rea Nuñez on 08-31-2024 Potassium (Unsp spec) [Mass/Vol] 3.9 mmol/L 3.3-5.1 [facility] RBC Auto (Bld) [#/Vol]Ordere d By: Rea Nuñez on 08-31-2024 RBC (Bld) [#/Vol] 3.80 10*6/uL Low 4.2-5.4 [facility] Serum creatinine measurement (mass/volume)Ordered By: Rea Nuñez on 08-31-2024 Creatinine [Mass/Vol] 0.80 mg/dL 0.70-1.20 [facility] Serum globulin measurementOr dered By: Rea Nuñez on 08-31-2024 Globulin (S) [Mass/Vol] 2.6 g/dL 2.2-4.2 [facility] Serum glucose measurement (m ass/volume)Ordered By: Rea Nuñez on 08-31-2024 Glucose [Mass/Vol] 85 mg/dL 70-99 [place] Serum or plasma alanine mccullough otransferase (ALT) measurementOrdered By: Rea Nuñez on 08-31-2024 ALT [Catalytic activity/Vol] 20 U/L <35 [facility] Serum or plasma albumin beatriz urement (mass/volume)Ordered By: Rea Nuñez on 08-31-2024 Albumin [Mass/Vol] 4.0 g/dL 3.5-5.0 [place] Serum or plasma albumin/glob ulin mass ratioOrdered By: Rea Nuñez on 08-31-2024 Albumin/Globulin [Mass ratio] 1.5 {ratio} 0.9-2.4 [facility] Serum or plasma alkaline rajesh sphatase measurementOrdered By: Rea Nuñez on 08-31-2024 ALP [Catalytic activity/Vol] 63 U/L 35-104 [facility] Serum or plasma calcium beatriz urement (mass/volume)Ordered By: Rea Nuñez on 08-31-2024 Calcium [Mass/Vol] 8.7 mg/dL 7.6-11.0 [place] Serum or plasma urea nitroge n measurement (mass/volume)Ordered By: Rea Nuñez on 08-31-2024 Urea nitrogen [Mass/Vol] 12 mg/dL 4-19 [facility] Sodium levelOrdered By: Emre Nuñez on 08-31-2024 Sodium [Moles/Vol] 138 mmol/L 133-145 [place] Total proteinOrdered By: Mer Nuñez on 08-31-2024 Protein [Mass/Vol] 6.6 g/dL 5.9-8.4 [place] White blood cell (WBC) count Ordered By: Rea Nuñez on 08-31-2024 WBC (Bld) [#/Vol] 5.3 10*3/uL 4.4-11.0 [place] Testosterone Freeon 08-05-19 25 TESTOSTER FREE 2.4 pg/mL Normal 0.0-4.2 [facility] Comment on above: Result Comment: Perf ormed at: - [facility] [address] [id number] [employer] Captain: Marie Dunham MD, Phone: [phone] Performed By: #### L [id number], L501.4783, L3100.4045, L506.7751, L3300.7440, L3400.9072 ####[facility] [address] [place], [address] PROLACTIN 4465on 08-02-2024 PROLACTIN 43.5 ng/mL High 4.8-33.4 [facility] Comment on above: Result Comment: Perf ormed at: - [facility] [address] [id number] Fire Prevention [employer] Captain: Marc Melton PhD, Phone: [phone] Performed By: #### L 3104.5406 ####[facility] [address] [place], [address] Estradiolon 07-31-2024 ESTRADIOL 64.6 pg/mL Normal [facility] Comment on above: Result Comment: FEMA LES ADULT FEMALE: Premenopausal: 15-350 pg/mL(E2 levels vary widely through the menstrual cycle) Postmenopausal: <10 pg/mL RON STAGES MEAN AGE REFERENCE RANGES Stage I(>14 days and prepubertal) 7.1 years Undetectable-20 pg/mLL Stage II 10.5 years Undetectable-24 pg/mL Stage III 11.6 years Undetectable-60 pg/mL Stage IV 12.3 years 15-85 pg/mL Stage V 14.5 years 15-350 pg/mL Puberty onset (transition from Ron stage I to Ron stage II) occurs for girls at a median age of 10.5 (/- 2) years. There is evidence that it may occur up to 1 year earlier in obese girls and in girls. Progression through Ron stages is variable. Ron stage V (adult) should be reached by age 18. Performed By: #### L 501.36398, L501.9520, L3100.5055, L506.0400, L3300.1750, L3400.4800 ####[facility] [address] [place], [place], [address] FSH and LHon 07-31-2024 FSH 2.5 mIU/mL Normal [facility] Comment on above: Result Comment: FEMA LE: Follicular: 1.4 - 18.1 mIU/mL Midcycle: 3.4 - 33.4 mIU/mL Luteal: 1.5 - 9.1 mIU/mL Post Menopause: 23.0 - 116.3 mIU/mL MALE: 1.4 - 18.1 mIU/mL NORMAL REFERENCE RANGES FEMALE FOLLICULAR 2.3 - 12.6 mIU/mL MID-CYCLE PEAK 5.2 - 17.5 mIU/mL LUTEAL 1.7 - 12.9 mIU/mL POST-MENOPAUSAL ON MHT 5.9 - 72.8 mIU/mL NOT ON MHT 12.7 - 132.2 mlU/mL MALE 0.7 - 10.8 mIU/mL Performed By: #### L 501.67103, L501.9520, L3100.5055, L506.0400, L3300.1750, L3400.4800 ####[facility] [address] [place], [place], [address] LH 8.6 mIU/mL Normal [facility] Comment on above: Result Comment: FEMA LE: Follicular: 1.9-12.5 mIU/mL Midcycle: 8.7-76.3 mIU/mL Luteal: 0.5-16.9 mIU/mL Post Menopause: 15.9-54.0 mIU/mL MALE: 20-70 Years: 1.5-9.3 mIU/mL >70 Years: 3.1-34.6 mIU/mL Performed By: #### L 501.49604, L501.9520, L3100.5055, L506.0400, L3300.1750, L3400.4800 ####[facility] [address] [place], [place], [address] Free T3on 07-31-2024 Free T3 [Mass/Vol] 2.9 pg/mL Normal 2.18-3.98 [place] Comment on above: Performed By: #### L 501.89669, L501.9520, L3100.5055, L506.0400, L3300.1750, L3400.4800 ####[facility] [address] [facility] [place], [place], [address] Free [id number] By: Priscilla mcnulty on 07-31-2024 Free T3 [Mass/Vol] 2.9 pg/mL 2.18-3.98 [place] LH ser/plasOrdered By: Monica Khan on 07-31-2024 Lutropin Qn 8.6 m[IU]/mL [facility] Comment on above: FEMALE:Follicular: 1 .9-12.5 mIU/mLMidcycle: 8.7-76.3 mIU/mLLuteal: 0.5-16.9 mIU/mLPost Menopause: 15.9-54.0 mIU/mLMALE:20-70 Years: 1.5-9.3 mIU/mL>70 Years: 3.1-34.6 mIU/mL New Car Sales Manager Office Visit Reporton 07-31-2024 New Car Sales Manager Office Visit Report [facility] [address], [address] [place] [address] OFFICE VISIT Date of Service: 07/31/24 MR#: [id number] Acct: [id number] Name: DALLAS FARIAS Rep #: [id number] : 1985 Provider: [place] yun Age/Sex: 39/F Location: [facility] Status: Signed Intake Vital Signs 01/13/24 13:55 07/12/24 15:09 07/31/24 13:28 Height 5 ft 4 in 5 ft 4 in 5 ft 4 in Weight: 175 lb 4 oz BMI 30.0 BP 103/72 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) Buzzle Buffer Required: No Is patient in pain?: No Allergies gluten Allergy (Verified 07/31/24 13:27) Abd cramps/diarrhea Medications ???Medication ???Instructions ???Recorded ???Confirmed ???Type cholecalciferol (vitamin D3) 25 25 mcg PO DAILY 07/12/22 07/31/24 History mcg (1,000 unit) capsule folic acid 1 mg tablet 1 mg PO DAILY 07/12/22 07/31/24 Hi story levothyroxine 25 mcg tablet 25 mcg PO QODAY 07/12/22 07/31/24 History vitamin B complex (B 1 tab PO DAILY 07/12/22 07/31/24 H istory Complex-Vitamin B12 tablet) doxycycline monohydrate 100 mg 100 mg PO BID #2 caps 07/30/24 Rx capsule multivitamin (One Daily 1 tab PO QDAY 07/31/24 07/31/24 Hi story Multivitamin tablet) Is last menstrual period known: Yes Last Menstrual Period: 07/07/24 Post menopausal: No Patient : No : No Control Method: condoms Nurse's Note: pt states she is having possible nils-menopause or thyroid issues. symptoms are irritability, anger, hair loss, hot flashes, and night sweats. no cycle changes. she states the 2 weeks prior to her period are when she gets the most angry and has to take a step back from and son. she also states the week after her period she is like mother goose. has hypothyroidism. [facility] Medical History Tick bite Anxiety Rheumatoid arthritis Back pain Syncope Gastric reflux Shortness of breath on exertion Leg cramps History of edema History of irregular heartbeat Wears glasses Alcohol use Anemia Migraine headache Dietary restriction History of IBS Former smoker History of echocardiogram Cardiology follow-up encounter Allergic dermatitis Depression PVC's (premature ventricular contractions) Palpitations Polyarthralgia Hypothyroidism History of prolactinoma Surgical History S/P cholecystectomy H/O section Family History Mother Hearing loss Grandmother Diabetes Colon cancer PVC (premature ventricular contraction) Grandfather Diabetes Crohn's disease Heart disease Grandmother Alzheimers disease Social History current occupation: [employer] Smoking Status: Former smoker how long ago did patient quit smokin alcohol intake: current substance use type: does not use caffeine: No frequency: daily HPI Encounter for routine gynecological examination Details: DALLAS FARIAS is a 39 year old who presents for annual exam. irritability, normal and regular periods with hot flashes/night sweats -grandmother with early menopause in 30s Last PAP: 2022; normal. HPV neg. History of abnormal PAP: no. Last mammogram: 2024; normal. History of abnormal mammogram: no. Colon cancer screening: age 47. Other preventative health care screenings: Nona Moreno; PCP. Female Reproductive History Last Menstrual Period: 07/07/24 Cycle Length: 21-35 Bleeding Duration: 5 Questions: metorrhagia: No, sexually active: Yes, dyspareunia: No and PCB: No Menopausal Symptoms: No difficulty concentrating and No change in libido ROS Const Constitutional: Reports as per HPI; Denies fatigue, increased appetite, poor appetite, weight gain or weight loss Cardio Card: Denies chest pain Resp Resp: Denies cough or dyspnea GI GI: Reports as per HPI; Denies abdominal pain, bloating, constipation, nausea or vomiting : Reports as per HPI and other; Denies difficulty voiding, hematuria, nipple discharge, pelvic pain, urinary frequency, urinary incontinence, urinary hesitancy, urinary urgency, vaginal discharge, vaginal dryness, vaginal odor or vaginal pruritus Skin Skin/Breast: Denies changing lesions, breast mass, breast pain, breast skin changes or nipple discharge Psych Psych: Denies anxiety, change in libido, depression or difficulty concentrating Exam Const General: cooperative, healthy appearing, comfortable and no acute distress Neck Neck: normal visual inspection, full ROM, no lymphadenopathy and supple Thyroid: thyroid normal Chest Chest palpation inspection: normal inspection of the chest Breast inspection: normal inspection of the breasts B (more content not included)... Normal [facility] Serum or plasma estradiol me asurement after follitropin dose (mass/volume)Ordered By: Priscilla Khan on 07-31-2024 E2 post dose follitropin [Mass/Vol] 64.6 pg/mL [facility] Comment on above: FEMALES ADULT FEMALE : Premenopausal: 15-350 pg/mL(E2 levels vary widely through the menstrual cycle) Postmenopausal: <10 pg/mL RON STAGES MEAN AGE REFERENCE RANGES Stage I(>14 days and prepubertal) 7.1 years Undetectable-20 pg/mLL Stage II 10.5 years Undetectable-24 pg/mL Stage III 11.6 years Undetectable-60 pg/mL Stage IV 12.3 years 15-85 pg/mL Stage V 14.5 years 15-350 pg/mL Puberty onset (transition from Ron stage I to Ron stage II) occurs for girls at a median age of 10.5 (/- 2) years. There is evidence that it may occur up to 1 year earlier in obese girls and in girls.Progression through Ron stages is variable. Ron stage V (adult) should be reached by age 18. Serum or plasma free testost erone measurement (mass/volume)Ordered By: Priscilla Khan on 07-31-2024 Testosterone Free [Mass/Vol] 2.4 pg/mL 0.0-4.2 [facility] Comment on above: Performed at: - [facility] [address] [id number] Director: Marie Dunham MD, Phone: [phone] Serum or plasma prolactin me asurement (mass/volume)Ordered By: Priscilla Khan on 07-31-2024 Prolactin [Mass/Vol] 43.5 ng/mL High 4.8-33.4 [facility] Comment on above: Performed at: CB - [facility] [address] [id number] Director: Marc Melton PhD, Phone: [phone] T4 Free Directon 07-31-2024 T4 FREE DIRECT 1.50 ng/dL High 0.76-1.46 [facility] Comment on above: Performed By: #### L 501.08599, L501.6426, L3100.4103, L506.0400, L3300.1750, L3400.4800 ####[facility] [id number] [place], [place], [address] T4 freeOrdered By: Priscilla mcnulty on 07-31-2024 Free T4 [Mass/Vol] 1.50 ng/dL High 0.76-1.46 [place] TSH DL <= 0.005 mIU/L QnOrde red By: Priscilla Khan on 07-31-2024 TSH Qn 0.888 uIU/mL 0.300-4.200 [facility] Thyroid Stim Hormone (TSH)on 07-31-2024 TSH 0.888 uIU/mL Normal 0.300-4.200 [facility] Comment on above: Performed By: #### L 501.30500, L501.9520, L3100.5055, L506.0400, L3300.1750, L3400.4800 ####[facility] [address] [place], [address] Urgent Care Visit Reporton 0 07-30-2024 Urgent Care Visit Report [facility] [address] [facility], [address] [place] [address] OFFICE VISIT Date of Service: 07/30/24 MR#: [id number] Acct: [id number] Name: DALLAS FARIAS Rep #: [id number] : 1985 Provider: LLOYD Vásquez Age/Sex: 39/F [place] [facility] Status: Signed Intake Vital Signs 07/12/24 15:09 07/30/24 13:12 Height 5 ft 4 in Weight: 175 lb 0.752 oz BP 110/56 L Blood Pressure Location Lt brachial Position Sitting Respiration 14 Pulse 77 Pulse Source NIBP Temp 98.2 F Temp Source Oral Pulse Oximetry (%) 99 Oxygen Delivery Method room air Intake Visit Reasons: TICK BITE ON R KNEE Chief Complaint: tick bite Buzzle Buffer Required: No Is patient in pain?: Yes Allergies gluten Allergy (Verified 07/30/24 13:12) Abd cramps/diarrhea Is last menstrual period known: No Post menopausal: No Patient : No Have you fallen in the past year?: No Nurse's Note: tick bite right knee. minimal redness to area, no bulls eye noted. pt states tick was knocked off with toweling, no engorgement. in place less than 24 hours. [facility] Medical History (Updated 07/30/24 @ 13:47 by Saroj DESAI, PA) Tick bite Anxiety Rheumatoid arthritis Back pain Syncope Gastric reflux Shortness of breath on exertion Leg cramps History of edema History of irregular heartbeat Wears glasses Alcohol use Anemia Migraine headache Dietary restriction History of IBS Former smoker History of echocardiogram Cardiology follow-up encounter Allergic dermatitis Depression PVC's (premature ventricular contractions) Palpitations Polyarthralgia Hypothyroidism History of prolactinoma Surgical History (Updated 07/27/24 @ 14:26 by Ginny Madsen LPN) S/P cholecystectomy H/O section Family History Mother Hearing loss Grandmother Diabetes Colon cancer PVC (premature ventricular contraction) Grandfather Diabetes Crohn's disease Heart disease Grandmother Alzheimers disease Social History current occupation: [employer] Smoking Status: Former smoker how long ago did patient quit smokin alcohol intake: current substance use type: does not use caffeine: No frequency: daily HPI HPI Chief Complaint: tick bite Details: DALLAS FARIAS, is a 39 F who presents to the office today for initial evaluation status post removal of right knee tick bite. Patient notes after showering earlier this morning knocking off a tick that was attached to the anterior aspect of her right knee with a towel while drying off, states she did not notice the tick was there until then. Localized pinpoint erythema without complaints of fever, chills, headache, muscle aches, joint pain, neck pain and no erythema nodosum appearance. She states the tick was first noticed about 2 days ago and was removed at that time. No [id number]-[id number] products taken to assist. No other associated symptoms and no other alleviating/aggravatin g factors. ROS Const Constitutional: No other (as above) Exam Const General: cooperative, healthy appearing and no acute distress Orientation: alert and awake Eyes General: appearance normal, both eyes and all related structures Chest Chest palpation inspection: normal inspection of the chest Resp Effort Inspection: normal respiratory effort and able to speak in complete sentences Cardio Rate: regular rate Pulses: radial pulses present Skin General: no rashes or lesions noted (except 2mm erythema at tick bite site) Neuro General: patient alert and patient awake Cognition: normal cognition Speech: speech normal Extrem General: normal to inspection Psych Appearance: grossly normal Mental Status: mental status grossly normal Mood: congruent mood Affect: normal affect Speech and Movement: speech and movement normal Attitude: cooperative Coding Level of Care Code Off vis,est,level 3 Diagnoses Tick bite W57.XXXA Assessment and Plan Assessment and Plan (1) Tick bite: Status: Acute Plan: - Without erythema nodosum appearance as well as asymptomatic Doxycycline 200 mg p.o. x 1 as prescribed in office today. Skin care measures as instructed today. Follow-up with PCP as needed should symptoms develop (as discussed in office today) or any other concerns. Patient states acknowledging understanding all the above. This note was generated with [employer] dictation software. It may contain incorrect words, spelling, and punctuation that were not noted in checking the note before signing. Medications: New doxycycline monohydrate 100 mg PO BID 2 caps 0RF Clinical Quality Measures Falls Risk Screening/Assistive Device (more content not included)... Normal [facility] Surgery Visit Reporton 07-27 Surgery Visit Report [facility] [address] [place] [address] OFFICE VISIT Date of Service: 07/27/24 MR#: [id number] Acct: [id number] Name: DALLAS FARIAS Rep #: [id number] : 1985 Provider: Dr. Christian mcallister MD Age/Sex: 39/F Location: [facility] Status: Signed Intake Vital Signs 07/12/24 15:09 Height 5 ft 4 in Intake Visit Reasons: LAP ELIZABETH DOS 07/05 Chief Complaint: lap elizabeth dos 07/05 Is patient in pain?: No Allergies gluten Allergy (Verified 07/27/24 14:25) Abd cramps/diarrhea Medications ???Medication ???Instructions ???Recorded ???Confirmed ???Type cholecalciferol (vitamin D3) 25 25 mcg PO DAILY 07/12/22 07/12/24 History mcg (1,000 unit) capsule folic acid 1 mg tablet 1 mg PO DAILY 07/12/22 07/12/24 Hi story levothyroxine 25 mcg tablet 25 mcg PO QODAY 07/12/22 07/12/24 History vitamin B complex (B 1 tab PO DAILY 07/12/22 07/12/24 H istory Complex-Vitamin B12 tablet) melatonin 3 mg capsule 3 mg PO HS PRN sleep 10/13/2206/20 History turmeric (bulk) 1 ea miscellaneous DAILY 07/05/24 07/12/24 History Subjective Details: Patient reports she is doing well with no pain. She tolerated diet this week. She has not been having the same sharp pain that she was hospitalized for. Objective Details: Incisions are clean dry and intact and abdomen is soft and nontender Coding Level of Care Code Global Post Op Diagnoses S/P cholecystectomy Z90.49 [facility] Medical History (Updated 07/13/24 @ 00:01 by Iggy Coates) Anxiety Rheumatoid arthritis Back pain Syncope Gastric reflux Shortness of breath on exertion Leg cramps History of edema History of irregular heartbeat Wears glasses Alcohol use Anemia Migraine headache Dietary restriction History of IBS Former smoker History of echocardiogram Cardiology follow-up encounter Allergic dermatitis Depression PVC's (premature ventricular contractions) Palpitations Polyarthralgia Hypothyroidism History of prolactinoma Surgical History (Updated 07/27/24 @ 14:26 by Ginny Madsen LPN) S/P cholecystectomy H/O section Family History Mother Hearing loss Grandmother Diabetes Colon cancer PVC (premature ventricular contraction) Grandfather Diabetes Crohn's disease Heart disease Grandmother Alzheimers disease Social History current occupation: [employer] Smoking Status: Former smoker how long ago did patient quit smokin alcohol intake: current substance use type: does not use caffeine: No frequency: daily Assessment and Plan (No Qualifiers) Assessment and Plan (1) S/P cholecystectomy: Status: Acute Plan: Patient is doing well after laparoscopic cholecystectomy. Follow-up as needed. Activity as tolerated. Christian Hollins MD Pager: [facility] [address] [place] [address] [address], [address] [place] [address] Office: 07/27/24 1528 Date Christian Hollins MD Cosign Signature: Date (if applicable) CC: Normal [facility] Absolute lymphocyte countOrd ered By: Juan Antonio Hinkle on 07-12-2024 Lymphocytes Auto (Unsp spec) [#/Vol] 1.41 10*3/uL 0.83-4.51 [facility] Absolute neutrophil countOrd ered By: Juan Antonio Hinkle on 07-12-2024 Neutrophils (Bld) [#/Vol] 6.4 10*3/uL 2.0-7.7 [facility] Anion gap in Serum or Plasma Ordered By: Juan Antonio Hinkle on 07-12-2024 Anion gap [Moles/Vol] 11 mmol/L 5-15 [facility] Automated lymphocyte count a s percentage of total leukocytesOrdered By: Juan Antonio Hinkle on 07-12-2024 Lymphocytes/100 WBC Auto (Unsp spec) 15.8 % Low 19-41 [facility] BUN/creatinine ratioOrdered By: Juan Antonio Hinkle on 07-12-2024 Urea nitrogen/Creatinine [Mass ratio] 14.0 mg/mg 10-20 [facility] Basophil percentageOrdered B y: Juan Antonio Hinkle on 07-12-2024 Basophils/100 WBC (Bld) 0.7 % 0-1 [facility] Bilirubin, totalOrdered By: Juan Antonio Hinkle on 07-12-2024 Bilirubin [Mass/Vol] 0.26 mg/dL 0.00-1.30 [facility] CBC W/Diff, Automatedon - Absolute Lymph 1.41 X10 3/uL Normal 0.83-4.51 [facility] Comment on above: Performed By: #### L 100.0100, L500.4050 #### [facility] [address] [place], [address] Absolute Neut 6.4 X10 3/uL Normal 2.0-7.7 [facility] Comment on above: Performed By: #### L 100.0100, L500.4050 #### [facility] [address] [place], [address] Basophils/100 WBC (Bld) 0.7 % Normal 0-1 [facility] Comment on above: Performed By: #### L 100.0100, L500.4050 #### [facility] [address] [place], [address] Eosinophils/100 WBC (Bld) 1.6 % Normal 0-5 [facility] Comment on above: Performed By: #### L 100.0100, L500.4050 #### [facility] [address] [place], [address] Erythrocyte distribution width (RBC) [Ratio] 12.8 % Normal 11.6-14.6 [facility] Comment on above: Performed By: #### L 100.0100, L500.4050 #### [facility] [address] [place], [address] Hematocrit (Bld) [Volume fraction] 33.8 % Low 37-47 [facility] Comment on above: Performed By: #### L 100.0100, L500.4050 #### [facility] [address] [place], [address] Hemoglobin (Bld) [Mass/Vol] 11.3 g/dL Low 12.0-15.0 [facility] Comment on above: Performed By: #### L 100.0100, L500.4050 #### [facility] [address] [place], [address] IG% 0.200 Normal 0.0-0.9 [facility] Comment on above: Result Comment: IG% - Immature Granulocytes (promyelocytes, myelocytes and metamyelocytes) > 1% indicates that a LEFT SHIFT is Present. Performed By: #### L 100.0100, L500.4050 #### [facility] [address] [place], [address] Lymphocytes/100 WBC (Bld) 15.8 % Low 19-41 [facility] Comment on above: Performed By: #### L 100.0100, L500.4050 #### [facility] [address] [place], [address] MCH (RBC) [Entitic mass] 31.9 pg Normal 27.0-32.0 [facility] Comment on above: Performed By: #### L 100.0100, L500.4050 #### [facility] [address] [place], [address] MCHC (RBC) [Mass/Vol] 33.4 g/dL Normal 32-36 [facility] Comment on above: Performed By: #### L 100.0100, L500.4050 #### [facility] [address] [place], [address] MCV (RBC) [Entitic vol] 95.5 fL Normal 81-99 [facility] Comment on above: Performed By: #### L 100.0100, L500.4050 #### [facility] [address] [place], [address] Monocytes/100 WBC (Bld) 10.4 % High 0-10 [facility] Comment on above: Performed By: #### L 100.0100, L500.4050 #### [facility] [address] [place], [address] Neutrophils/100 WBC (Bld) 71.3 % High 47-70 [facility] Comment on above: Performed By: #### L 100.0100, L500.4050 #### [facility] [address] [place], [address] Nucleated RBC (Bld) [#/Vol] 0 10*3/uL Normal 0-5 [facility] Comment on above: Performed By: #### L 100.0100, L500.4050 #### [facility] [address] [place], [address] Platelet mean volume (Bld) [Entitic vol] 11.8 fL Normal 6.2-12.0 [facility] Comment on above: Performed By: #### L 100.0100, L500.4050 #### [facility] [address] [place], [address] Platelets (Bld) [#/Vol] 263 10*3/uL Normal 150-450 [facility] Comment on above: Performed By: #### L 100.0100, L500.4050 #### [facility] [address] [place], [address] RBC (Bld) [#/Vol] 3.54 10*6/uL Low 4.2-5.4 [facility] Comment on above: Performed By: #### L 100.0100, L500.4050 #### [facility] [address] [place], [address] RDW SD 45.2 fl High 35.1-43.9 [facility] Comment on above: Performed By: #### L 100.0100, L500.4050 #### [facility] [address] [place], [address] WBC (Bld) [#/Vol] 8.9 10*3/uL Normal 4.4-11.0 [place] Comment on above: Performed By: #### L 100.0100, L500.4050 #### [facility] [address] [place], [address] Carbon dioxide, total [Moles /volume] in Central venous bloodOrdered By: Juan Antonio Hinkle on 07-12-2024 CO2 [Moles/Vol] 20.3 mmol/L Low 21.0-32.0 [facility] Chloride assayOrdered By: Gladis Hinkle on 07-12-2024 Chloride [Moles/Vol] 108 mmol/L 98-108 [facility] Comprehensive Metabolic Prof ilon 07-12-2024 Albumin [Mass/Vol] 3.6 g/dL Normal 3.5-5.0 [place] Comment on above: Performed By: #### L 100.0100, L500.4050 #### [facility] [address] [place], [address] Albumin/Globulin [Mass ratio] 1.3 {ratio} Normal 0.9-2.4 [facility] Comment on above: Performed By: #### L 100.0100, L500.4050 #### [facility] [address] [place], [address] ALK PHOS 60 U/L Normal 35-104 [facility] Comment on above: Performed By: #### L 100.0100, L500.4050 #### [facility] [address] [place], [address] ALT [Catalytic activity/Vol] 31 U/L Normal <=34 [facility] Comment on above: Performed By: #### L 100.0100, L500.4050 #### [facility] [address] [place], [address] AST [Catalytic activity/Vol] 23 U/L Normal <=31 [facility] Comment on above: Performed By: #### L 100.0100, L500.4050 #### [facility] [address] [place], [address] Bilirubin [Mass/Vol] 0.26 mg/dL Normal 0.00-1.30 [facility] Comment on above: Performed By: #### L 100.0100, L500.4050 #### [facility] [address] [place], [address] BUN/CRE 14.0 RATIO Normal 10-20 [facility] Comment on above: Performed By: #### L 100.0100, L500.4050 #### [facility] [address] [place], [address] Calcium [Mass/Vol] 8.0 mg/dL Normal 7.6-11.0 [place] Comment on above: Performed By: #### L 100.0100, L500.4050 #### [facility] [address] [place], [address] Chloride [Moles/Vol] 108 mmol/L Normal 98-108 [facility] Comment on above: Performed By: #### L 100.0100, L500.4050 #### [facility] [address] [place], [address] CO2 [Moles/Vol] 20.3 mmol/L Low 21.0-32.0 [facility] Comment on above: Performed By: #### L 100.0100, L500.4050 #### [facility] [address] [place], [address] Creatinine [Mass/Vol] 0.70 mg/dL Normal 0.70-1.20 [facility] Comment on above: Performed By: #### L 100.0100, L500.4050 #### [facility] [address] [place], [address] ECRCL 112.18 ml/min Normal 50-250 [facility] Comment on above: Performed By: #### L 100.0100, L500.4050 #### [facility] [address] [place], [address] GAP 11 Normal 5-15 [facility] Comment on above: Performed By: #### L 100.0100, L500.4050 #### [facility] [address] [place], [address] GFR/1.73 sq M.predicted among non-blacks MDRD (S/P/Bld) [Vol rate/Area] 114 mL/min/{1.73_m2} Normal >60 [facility] Comment on above: Result Comment: mL/m in/1.73m2 CKD-EPI Creatinine Equation (2020) Performed By: #### L 100.0100, L500.4050 #### [facility] [address] [place], [address] Globulin (S) [Mass/Vol] 2.8 g/dL Normal 2.2-4.2 [facility] Comment on above: Performed By: #### L 100.0100, L500.4050 #### [facility] [address] [place], [address] Glucose [Mass/Vol] 108 mg/dL High 70-99 [place] Comment on above: Performed By: #### L 100.0100, L500.4050 #### [facility] [address] [place], [address] Potassium [Moles/Vol] 3.6 mmol/L Normal 3.3-5.1 [facility] Comment on above: Performed By: #### L 100.0100, L500.4050 #### [facility] [address] [place], [address] Sodium [Moles/Vol] 139 mmol/L Normal 133-145 [place] Comment on above: Performed By: #### L 100.0100, L500.4050 #### [facility] [facility] [address] [place], [address] T PROT 6.4 g/dL Normal 5.9-8.4 [facility] Comment on above: Performed By: #### L 100.0100, L500.4050 #### [facility] [address] [place], [address] Urea nitrogen [Mass/Vol] 10 mg/dL Normal 4-19 [facility] Comment on above: Performed By: #### L 100.0100, L500.4050 #### [facility] [address] [place], [address] ECG 12 LeadOrdered By: Gina Jimenez on 07-12-2024 Atrial Rate 98 BPM [facility] Work Phone: P Walcott 73 degrees [facility] Work Phone: P Offset 198 ms [facility] Work Phone: P Onset 150 ms [facility] Work Phone: NM Interval 140 ms [facility] Work Phone: Q Onset 220 ms [facility] Work Phone: QRS Count 16 beats [facility] Work Phone: QRS Duration 74 ms [facility] Work Phone: QT Interval 366 ms [facility] Work Phone: QTC Calculation(Bazett) 467 [facility] Work Phone: QTC Fredericia 431 ms [facility] Work Phone: R [place]cott 78 degrees [facility] Work Phone: T [place] 70 degrees [facility] Work Phone: T Offset 403 ms [facility] Work Phone: Ventricular Rate 98 BPM [facility] Work Phone: [facility] Work Phone: ECG 12 Leadon 07-12-2024 Normal sinus rhythm Possible Left atrial enlargement Borderline ECG When compared with ECG of 12-JUN-2024 16:44, No significant change was found See ED provider note for full interpretation and clinical correlation Confirmed by Patricia Jimenez ([id number]) on 07/12/2024 9:42:18 PM Patricia Law PA-C - 07/12/2024 Normal sinus rhythm Possible Left atrial enlargement Borderline ECG When compared with ECG of 12-JUN-2024 16:44, No significant change was found See ED provider note for full interpretation and clinical correlation Confirmed by Patricia Jimenez ([id number]) on 07/12/2024 9:42:18 PM [facility] Work Phone: Eosinophil percentageOrdered By: Juan Antonio Hinkle on 07-12-2024 Eosinophils/100 WBC (Bld) 1.6 % 0-5 [facility] Erythrocyte distribution wid th (RBC) [Ratio]Ordered By: Juan Antonio Hinkle on 07-12-2024 Erythrocyte distribution width (RBC) [Entitic vol] 45.2 fL High 35.1-43.9 [facility] Erythrocyte distribution wid th ratioOrdered By: Juan Antonio Hinkle on 07-12-2024 Erythrocyte distribution width (RBC) [Ratio] 12.8 % 11.6-14.6 [facility] Erythrocyte distribution wid th standard deviationOrdered By: Juan Antonio Hinkle on 07-12-2024 Erythrocyte distribution width (RBC) [Ratio] 45.2 fl High 35.1-43.9 [facility] Estimation of creatinine darion aranceOrdered By: Juan Antonio Hinkle on 07-12-2024 Estimated Creatinine Clearance Calc 112.18 ml/min 50-250 [facility] GFR/1.73 sq M.predicted amy g non-blacks MDRD (S/P/Bld) [Vol rate/Area]Ordered By: Juan Antonio Hinkle on 07-12-2024 Estimated GFR (MDRD) Non-Af Amer 114 >60 [facility] Comment on above: mL/min/1.73m2 CKD-EP I Creatinine Equation (2020) Glomerular filtration rate ( GFR) estimation/1.73 sq m using serum, plasma, or whole bOrdered By: Juan Antonio Hinkle on 07-12-2024 GFR/1.73 sq M.predicted among non-blacks MDRD (S/P/Bld) [Vol rate/Area] 114 mL/min/{1.73_m2} >60 [facility] Comment on above: mL/min/1.73m2 CKD-EP I Creatinine Equation (2020) H AND P Exam - Surgicalon H&P Exam - Surgical [facility] Medical Records Department [address] [place] [address] H P Exam - Surgical 07/12/24 0820 MR#: [id number] Acct: [id number] Name: DALLAS FARIAS Rep #: [id number] : 1985 39 From: Chrisitan Hollins MD PCP: VIVIAN NajeraC Status:ADM IN Location: [facility] [id number] HPI - General General Date of Admission: 07/12/24 HPI Narrative DALLAS FARIAS, is a 39 F who presents with abdominal pain that was severe. She reports that she has been feeling more tired than she would expect after surgery for the past week. She had a laparoscopic cholecystectomy 1 week ago for biliary dyskinesia. She reports that yesterday she was cooking food and in the middle of cooking she felt like stabbing pain under the right ribs that radiates down to the pelvis. She says it has not gone away and is still operator batch or continuous. She denies nausea or vomiting or fevers or chills. [facility] Medical History Anxiety Rheumatoid arthritis Back pain Syncope Gastric reflux Shortness of breath on exertion Leg cramps History of edema History of irregular heartbeat Wears glasses Alcohol use Anemia Migraine headache Dietary restriction History of IBS Former smoker History of echocardiogram Cardiology follow-up encounter Allergic dermatitis Depression PVC's (premature ventricular contractions) Palpitations Polyarthralgia Hypothyroidism History of prolactinoma Home Medications ???Medication ???Instructions ???Recorded ???Last Taken ???Type cholecalciferol (vitamin D3) 25 25 mcg PO DAILY 07/12/22 07/03/24 History mcg (1,000 unit) capsule folic acid 1 mg tablet 1 mg PO DAILY 07/12/22 07/03/24 Hi story levothyroxine 25 mcg tablet 25 mcg PO QODAY 07/12/22 07/03/24 History vitamin B complex (B 1 tab PO DAILY 07/12/22 07/03/24 H istory Complex-Vitamin B12 tablet) melatonin 3 mg capsule 3 mg PO HS PRN sleep 10/13/2206/19 History acetaminophen 325 mg tablet 650 mg PO Q4H PRN pain 07/03/24 History (Tylenol) ondansetron 4 mg disintegrating 4 mg PO Q8H PRN nausea and 5 Unknown Rx tablet vomiting #14 tabs oxycodone 5 mg tablet 5 - 10 mg (1 - 2 x 5 mg) PO Q4H Unknown Rx PRN PRN Pain Score 4-10 5 days #20 tabs turmeric (bulk) 1 ea miscellaneous DAILY 07/05/24 07/03/24 History Allergy/AdvReac Type Severity Reaction Status Date / Time gluten Allergy Abd Verified 07/12/24 03:47 cramps/diarrhea Family History Mother Hearing loss Grandmother Diabetes Colon cancer PVC (premature ventricular contraction) Grandfather Diabetes Crohn's disease Heart disease Grandmother Alzheimers disease Surgical History H/O section Social History current occupation: [employer] Smoking Status: Former smoker how long ago did patient quit smokin alcohol intake: current substance use type: does not use caffeine: No frequency: daily Vital Signs Vital Signs Vital Signs: 07/12/24 03:50 07/12/24 04:01 Temperature 98.7 F Temperature Source Oral Pulse Rate 82 Respiratory Rate 16 Respiratory Effort Normal Non-Labored Respiratory Depth Normal Respiratory Pattern Normal Blood Pressure 132/70 H Blood Pressure Mean 90 Blood Pressure Source Monitor Blood Pressure Position Semi-Fowlers Blood Pressure Location Left Arm Pulse Ox 100 Oxygen Delivery Method Room Air Weight Weight: 175 lb 0.752 oz Body Mass Index (BMI) 30.0 Physical Exam Const oriented x3 and no apparent distress Resp normal respiratory effort Cardio regular rate and regular rhythm GI soft to palpation Palpation: tender RUQ Results Lab / Micro Data 07/12/24 05:20 07/12/24 05:20 Labs: Laboratory Results - last 24 hr 07/12/24 05:20: WBC 8.9, RBC 3.54 L, Hgb 11.3 L, Hct 33.8 L, MCV 95.5, MCH 31.9, MCHC 33.4, RDW Std Deviation 45.2 H, RDW Coeff of Ada 12.8, Plt Count 263, MPV 11.8, Immature Gran % (Auto) 0.200, Neut % (Auto) 71.3 H, Lymph % (Auto) 15.8 L, [place] % (Auto) 10.4 H, Eos % (Auto) 1.6, Baso % (Auto) 0.7, Absolute Neuts (auto) 6.4, Absolute Lymphs (auto) 1.41, Nucleated RBC % 0, Sodium 139, Potassium 3.6, Chloride 108, Carbon Dioxide 20.3 L, Anion Gap 11, BUN 10, Creatinine 0.70, Estim Creat Clear Calc 112.18, Est GFR (MDRD) Non-Af 114, BUN/Creatinine Ratio 14.0, Glucose 108 H, Calcium 8.0, Total Bilirubin 0.26, AST 23, ALT 31, Alkaline Phosphatase 60, Total Protein 6.4, Albumin 3.6, Globulin 2.8, Albumin/Globulin Ratio 1.3 Assessment Plan Assessment/Plan (1) Biliary dyskinesia: PLAN: T (more content not included)... Normal [facility] Hematocrit Auto (Bld) [Volum e fraction]Ordered By: Juan Antonio Hinkle on 07-12-2024 Hematocrit (Bld) [Volume fraction] 33.8 % Low 37-47 [facility] Hemoglobin measurementOrdere d By: Juan Antonio Hinkle on 07-12-2024 Hemoglobin (Bld) [Mass/Vol] 11.3 g/dL Low 12.0-15.0 [facility] Hepatobilliary Imagingon Hepatobilliary Imaging [facility] Imaging Services [address] [place] [address] Hepatobilliary Imaging MR#: [id number] Acct: [id number] Name: DALLAS FARIAS Rep #: [id number] : 1985 F 39 From: Marin queen MD PCP: WANG Najera Status: ADM IN Study: Hepatobilliary Imaging Date of Exam: 07/12/24 Exam# [id number] Ordering Dr: Christian Hollins PROCEDURE: HEPATOBILLIARY IMAGING 07/12/2024 REASON FOR EXAM: RUQ PAIN AFTER CHOLECYSTECTOMY TECHNIQUE: Intravenous Choletec with planar imaging of the abdomen. RADIOPHARMACEUTICAL: 5.6 mCi of technetium labeled mebrofenin COMPARISON: None. FINDINGS: There is good uptake of the radiopharmaceutical by the liver. The patient is status post cholecystectomy. Radiopharmaceutical is seen within the proximal small bowel. NM/Hepatobilliary Imaging IMPRESSION: Status post cholecystectomy. No abnormality is seen. Reading Location: [place] [address] CC: WANG Moreno; Dr. Christian Hollins MD; Dr. Juan Antonio Hinkle MD Billposter: Signed Normal [facility] Immature granulocytes/100 WB C Auto (Bld)Ordered By: Juan Antonio Hinkle on 07-12-2024 Immature granulocytes/100 WBC (Bld) 0.200 % 0.0-0.9 [facility] Comment on above: IG% - Immature Granu locytes (promyelocytes, myelocytes and metamyelocytes) > 1% indicates that a LEFT SHIFT is Present. Laboratory - Chemistry and C hemistry - challengeOrdered By: Juan Antonio Hinkle on 07-12-2024 AST [Catalytic activity/Vol] 23 U/L <32 [facility] Lymphocytes Auto (Unsp spec) [#/Vol]Ordered By: Juan Antonio Hinkle on 07-12-2024 Lymphocytes (Bld) [#/Vol] 1.41 10*3/uL 0.83-4.51 [facility] Lymphocytes/100 WBC Auto (Un sp spec)Ordered By: Juan Antonio Hinkle on 07-12-2024 Lymphocytes/100 WBC (Bld) 15.8 % Low 19-41 [facility] MCV (mean corpuscular volume ) determinationOrdered By: Juan Antonio Hinkle on 07-12-2024 MCV (RBC) [Entitic vol] 95.5 fL 81-99 [facility] Mean corpuscular hemoglobin (MCH) determinationOrdered By: Juan Antonio Hinkle on 07-12-2024 MCH (RBC) [Entitic mass] 31.9 pg 27.0-32.0 [facility] Mean corpuscular hemoglobin concentration (MCHC) determinationOrdered By: Juan Antonio Hinkle on 07-12-2024 MCHC (RBC) [Mass/Vol] 33.4 g/dL 32-36 [facility] [facility] Mean platelet volume determi nationOrdered By: Juan Antonio Hinkle on 07-12-2024 Platelet mean volume (Bld) [Entitic vol] 11.8 fL 6.2-12.0 [facility] Monocyte percentageOrdered B y: Juan Antonio Hinkle on 07-12-2024 Monocytes/100 WBC (Bld) 10.4 % High 0-10 [facility] Neutrophil percentageOrdered By: Juan Antonio Hinkle on 07-12-2024 Neutrophils/100 WBC (Bld) 71.3 % High 47-70 [facility] Nucleated red blood cell per centageOrdered By: Juan Antonio Hinkle on 07-12-2024 Nucleated RBC/100 WBC (Bld) [Ratio] 0 % 0-5 [facility] Platelet countOrdered By: Gladis Hinkle on 07-12-2024 Platelets (Bld) [#/Vol] 263 10*3/uL 150-450 [facility] Potassium (Unsp spec) [Mass/ Vol]Ordered By: Juan Antonio Hinkle on 07-12-2024 Potassium [Moles/Vol] 3.6 mmol/L 3.3-5.1 [facility] Potassium measurement (mass/ volume)Ordered By: Juan Antonio Hinkle on 07-12-2024 Potassium (Unsp spec) [Mass/Vol] 3.6 mmol/L 3.3-5.1 [facility] RBC Auto (Bld) [#/Vol]Ordere d By: Juan Antonio Hinkle on 07-12-2024 RBC (Bld) [#/Vol] 3.54 10*6/uL Low 4.2-5.4 [facility] Serum creatinine measurement (mass/volume)Ordered By: Juan Antonio Hinkle on 07-12-2024 Creatinine [Mass/Vol] 0.70 mg/dL 0.70-1.20 [facility] Serum globulin measurementOr dered By: Juan Antonio Hinkle on 07-12-2024 Globulin (S) [Mass/Vol] 2.8 g/dL 2.2-4.2 [facility] Serum glucose measurement (m ass/volume)Ordered By: Juan Antonio Hinkle on 07-12-2024 Glucose [Mass/Vol] 108 mg/dL High 70-99 [place] Serum or plasma alanine mccullough otransferase (ALT) measurementOrdered By: Juan Antonio Hinkle on 07-12-2024 ALT [Catalytic activity/Vol] 31 U/L <35 [facility] Serum or plasma albumin beatriz urement (mass/volume)Ordered By: Juan Antonio Hinkle on 07-12-2024 Albumin [Mass/Vol] 3.6 g/dL 3.5-5.0 [place] Serum or plasma albumin/glob ulin mass ratioOrdered By: Juan Antonio Hinkle on 07-12-2024 Albumin/Globulin [Mass ratio] 1.3 {ratio} 0.9-2.4 [facility] Serum or plasma alkaline rajesh sphatase measurementOrdered By: Juan Antonio Hinkle on 07-12-2024 ALP [Catalytic activity/Vol] 60 U/L 35-104 [facility] Serum or plasma calcium beatriz urement (mass/volume)Ordered By: Juan Antonio Hinkle on 07-12-2024 Calcium [Mass/Vol] 8.0 mg/dL 7.6-11.0 [place] Serum or plasma urea nitroge n measurement (mass/volume)Ordered By: Juan Antonio Hinkle on 07-12-2024 Urea nitrogen [Mass/Vol] 10 mg/dL 4-19 [facility] Sodium levelOrdered By: Puneet Hinkle on 07-12-2024 Sodium [Moles/Vol] 139 mmol/L 133-145 [place] Total proteinOrdered By: Ricardo Hinkle on 07-12-2024 Protein [Mass/Vol] 6.4 g/dL 5.9-8.4 [place] White blood cell (WBC) count Ordered By: Juan Antonio Hinkle on 07-12-2024 WBC (Bld) [#/Vol] 8.9 10*3/uL 4.4-11.0 [place] CBC W Auto Differential pane l (Bld)on 07-11-2024 Basophils (Bld) [#/Vol] 0.09 10*3/uL [facility] Basophils/100 WBC (Bld) 0.9 % 0.0 - 2.0 % [facility] Eosinophils (Bld) [#/Vol] 0.33 10*3/uL [facility] Eosinophils/100 WBC (Bld) 3.1 % 0.0 - 6.0 % [facility] Erythrocyte distribution width (RBC) [Ratio] 12.7 % 11.5 - 14.5 % [facility] Hematocrit (Bld) [Volume fraction] 38.8 % 36.0 - 46.0 % [facility] Hemoglobin (Bld) [Mass/Vol] 12.7 g/dL 12.0 - 16.0 g/dL [facility] Immature granulocytes (Bld) [#/Vol] 0.03 10*3/uL [facility] Immature granulocytes/100 WBC (Bld) 0.3 % 0.0 - 0.9 % [facility] Comment on above: Immature Granulocyte Count (IG) includes promyelocytes, myelocytes and metamyelocytes but does not include bands. Percent differential counts (%) should be interpreted in the context of the absolute cell counts (cells/UL). Lymphocytes (Bld) [#/Vol] 4.62 10*3/uL [facility] Lymphocytes/100 WBC (Bld) 43.8 % 13.0 - 44.0 % [facility] MCH (RBC) [Entitic mass] 31.3 pg 26.0 - 34.0 pg [facility] MCHC (RBC) [Mass/Vol] 32.7 g/dL 32.0 - 36.0 g/dL [facility] MCV (RBC) [Entitic vol] 96 fL 80 - 100 fL [facility] Monocytes (Bld) [#/Vol] 0.79 10*3/uL [facility] Monocytes/100 WBC (Bld) 7.5 % 2.0 - 10.0 % [facility] Neutrophils (Bld) [#/Vol] 4.69 10*3/uL [facility] Comment on above: Percent differential counts (%) should be interpreted in the context of the absolute cell counts (cells/uL). Neutrophils/100 WBC (Bld) 44.4 % 40.0 - 80.0 % [facility] Nucleated RBC/100 WBC (Bld) [Ratio] 0 % [facility] Platelets (Bld) [#/Vol] 308 10*3/uL [facility] RBC (Bld) [#/Vol] 4.06 10*6/uL [facility] WBC (Bld) [#/Vol] 10.6 10*3/uL [facility] Basophils (Bld) [#/Vol] 0.09 x10*3/uL Normal 0.00-0.10 [facility] Comment on above: Performed By: #### 5 7021-8 #### REYNA HATHAWAY ([id number]) [facility] ([facility]) [address] [place] [address] 83530 Basophils/100 WBC (Bld) 0.9 % Normal 0.0-2.0 [facility] Comment on above: Performed By: #### 5 7021-8 #### REYNA HATHAWAY ([id number]) [facility] ([facility]) [address] [place] [address] 55280 Eosinophils (Bld) [#/Vol] 0.33 x10*3/uL Normal 0.00-0.70 [facility] Comment on above: Performed By: #### 5 7021-8 #### REYNA HATHAWAY ([id number]) [facility] ([facility]) [address] [place] [address] 45107 Eosinophils/100 WBC (Bld) 3.1 % Normal 0.0-6.0 [facility] Comment on above: Performed By: #### 5 7021-8 #### REYNA HATHAWAY ([id number]) [facility] ([facility]) [address] [place] [address] 04530 Erythrocyte distribution width (RBC) [Ratio] 12.7 % Normal 11.5-14.5 [facility] Comment on above: Performed By: #### 5 7021-8 #### REYNA HATHAWAY ([id number]) [facility] ([facility]) [address] [place] [address] Hematocrit (Bld) [Volume fraction] 38.8 % Normal 36.0-46.0 [facility] Comment on above: Performed By: #### 5 7021-8 #### REYNA HATHAWAY ([id number]) [facility] ([facility]) [address] [place] [address] Hemoglobin (Bld) [Mass/Vol] 12.7 g/dL Normal 12.0-16.0 [facility] Comment on above: Performed By: #### 5 7021-8 #### REYNA HATHAWAY ([id number]) [facility] ([facility]) [address] [place] [address] Immature granulocytes (Bld) [#/Vol] 0.03 x10*3/uL Normal 0.00-0.70 [facility] Comment on above: Performed By: #### 5 7021-8 #### REYNA HATHAWAY ([id number]) [facility] ([facility]) [address] [place], [place] [id number] Immature granulocytes/100 WBC (Bld) 0.3 % Normal 0.0-0.9 [facility] Comment on above: Result Comment: Aditi ture Granulocyte Count (IG) includes promyelocytes, myelocytes and metamyelocytes but does not include bands. Percent differential counts (%) should be interpreted in the context of the absolute cell counts (cells/UL). Performed By: #### 5 7021-8 #### REYNA HATHAWAY ([id number]) [facility] ([facility]) [address] [place], [place] [id number] Lymphocytes (Bld) [#/Vol] 4.62 x10*3/uL Normal 1.20-4.80 [facility] Comment on above: Performed By: #### 5 7021-8 #### REYNA HATHAWAY ([id number]) [facility] ([facility]) [address] [place] [address] 81229 Lymphocytes/100 WBC (Bld) 43.8 % Normal 13.0-44.0 [facility] Comment on above: Performed By: #### 5 7021-8 #### REYNA HATHAWAY ([id number]) [facility] ([facility]) [address] [place] [address] 03962 MCH (RBC) [Entitic mass] 31.3 pg Normal 26.0-34.0 [facility] Comment on above: Performed By: #### 5 7021-8 #### REYNA HATHAWAY ([id number]) [facility] ([facility]) [address] [place] [address] 64416 MCHC (RBC) [Mass/Vol] 32.7 g/dL Normal 32.0-36.0 [facility] Comment on above: Performed By: #### 5 7021-8 #### REYNA HATHAWAY ([id number]) [facility] ([facility]) [address] [place] [address] 29755 MCV (RBC) [Entitic vol] 96 fL Normal 80-100 [facility] Comment on above: Performed By: #### 5 7021-8 #### REYNA HATHAWAY ([id number]) [facility] ([facility]) [address] [place] [address] 50225 Monocytes (Bld) [#/Vol] 0.79 x10*3/uL Normal 0.10-1.00 [facility] Comment on above: Performed By: #### 5 7021-8 #### REYNA HATHAWAY ([id number]) [facility] ([facility]) [address] [place] [address] 66643 Monocytes/100 WBC (Bld) 7.5 % Normal 2.0-10.0 [facility] Comment on above: Performed By: #### 5 7021-8 #### REYNA HATHAWAY ([id number]) [facility] ([facility]) [address] [place] [address] 42703 Neutrophils (Bld) [#/Vol] 4.69 x10*3/uL Normal 1.20-7.70 [facility] Comment on above: Result Comment: Perc ent differential counts (%) should be interpreted in the context of the absolute cell counts (cells/uL). Performed By: #### 5 7021-8 #### REYNA HATHAWAY ([id number]) [facility] ([facility]) [address] [place] [address] 90167 Neutrophils/100 WBC (Bld) 44.4 % Normal 40.0-80.0 [facility] Comment on above: Performed By: #### 5 7021-8 #### REYNA HATHAWAY ([id number]) [facility] ([facility]) [address] [place] [address] 72929 Nucleated RBC/100 WBC (Bld) [Ratio] 0.0 /100 WBCs Normal 0.0-0.0 [facility] Comment on above: Performed By: #### 5 7021-8 #### REYNA HATHAWAY ([id number]) [facility] ([facility]) [address] [place] [address] 33161 Platelets (Bld) [#/Vol] 308 x10*3/uL Normal 150-450 [facility] Comment on above: Performed By: #### 5 7021-8 #### REYNA HATHAWAY ([id number]) [facility] ([facility]) [address] [place] [address] 88910 RBC (Bld) [#/Vol] 4.06 x10*6/uL Normal 4.00-5.20 [facility] Comment on above: Performed By: #### 5 7021-8 #### REYNA HATHAWAY ([id number]) [facility] ([facility]) [address] [place] [address] 97083 WBC (Bld) [#/Vol] 10.6 x10*3/uL Normal 4.4-11.3 [facility] Comment on above: Performed By: #### 5 7021-8 #### REYNA HATHAWAY ([id number]) [facility] ([facility]) [address] [place] [address] CT ABDOMEN PELVIS W IV CONTR Silvia 07-11-2024 CT ABDOMEN PELVIS W IV CONTRAST Interpreted By: Jono Millan, STUDY: CT ABDOMEN PELVIS W IV CONTRAST; ; 07/11/2024 9:58 pm INDICATION: Signs/Symptoms:RUQ pain, recent cholecystectomy. COMPARISON: None. ACCESSION NUMBER(S): [id number] ORDERING CLINICIAN: PATRICIA HYATT TECHNIQUE: Axial CT [...] Jono Millan 07/11/2024 10:30 PM Dictation workstation: [id number] [facility] CT Abdomen and Pelvis W cont rast Colby 07-11-2024 There is a heterogeneous fluid collection in the gallbladder fossa measuring up to 2.2 x 2.1 cm in transaxial diameters, 3.2 cm in CC diameter (series 2, images 45-60), possibly representing hematoma/seroma, biloma, or abscess. Otherwise, no evidence of acute pathology. Hepatomegaly. Additional findings as discussed above. MACRO: None Signed by: Jono Millan 07/11/2024 10:30 PM Dictation workstation: [id number] [facility] Interpreted By: Jono Patel, STUDY: CT ABDOMEN PELVIS W IV CONTRAST; ; 07/11/2024 9:58 pm INDICATION: Signs/Symptoms:RUQ pain, recent cholecystectomy. COMPARISON: None. ACCESSION NUMBER(S): [id number] ORDERING CLINICIAN: PATRICIA HYATT TECHNIQUE: Axial CT [...] ascites or free air, no fluid collection. MMODAL Jono Millan MD - 07/11/2024 Interpreted By: Jono Millan, STUDY: CT ABDOMEN PELVIS W IV CONTRAST; ; 07/11/2024 9:58 pm INDICATION: Signs/Symptoms:RUQ pain, recent cholecystectomy. COMPARISON: None. ACCESSION NUMBER(S): [id number] ORDERING CLINICIAN: PATRICIA HYATT TECHNIQUE: Axial CT [...] Jono Millan 07/11/2024 10:30 PM Dictation workstation: [id number] [facility] Work Phone: Radiology Study observation (narrative) [facility] Work Phone: CT Abdomen and Pelvis W cont rast IVOrdered By: Jono Millan on 07-11-2024 [facility] Work Phone: Comprehensive metabolic 2000 panelon 07-11-2024 Albumin BCP dye [Mass/Vol] 4.4 g/dL 3.4 - 5.0 g/dL [facility] ALP [Catalytic activity/Vol] 59 U/L 33 - 110 U/L [facility] ALT With P-5'-P [Catalytic activity/Vol] 31 U/L 7 - 45 U/L [facility] Comment on above: Patients treated wit h Sulfasalazine may generate falsely decreased results for ALT. Anion gap [Moles/Vol] 19 mmol/L 10 - 2 0 mmol/L [facility] AST With P-5'-P [Catalytic activity/Vol] 19 U/L 9 - 39 U/L [facility] Bilirubin [Mass/Vol] 0.4 mg/dL 0.0 - 1 .2 mg/dL [facility] Calcium [Mass/Vol] 8.9 mg/dL 8.6 - 10. 3 mg/dL [facility] Chloride [Moles/Vol] 104 mmol/L 98 - 10 7 mmol/L [facility] CO2 [Moles/Vol] 17 mmol/L Low 21 - 32 mmol/L [facility] Creatinine [Mass/Vol] 0.7 mg/dL 0.50 - 1.05 mg/dL [facility] eGFR - PINF [facility] Comment on above: Calculations of lilia mated GFR are performed using the 2020 CKD-EPI Study Refit equation without the race variable for the IDMS-Traceable creatinine methods. https://jasn.asnjournals.org/content//ASN.74064 08580 Glucose [Mass/Vol] 118 mg/dL High 74 - 99 mg/dL [facility] Interpretation and review of laboratory results Abnormal [facility] Potassium [Moles/Vol] 3.6 mmol/L 3.5 - 5.3 mmol/L [facility] Protein [Mass/Vol] 7.3 g/dL 6.4 - 8.2 g/dL [facility] Sodium [Moles/Vol] 136 mmol/L 136 - 145 mmol/L [facility] Urea nitrogen [Mass/Vol] 11 mg/dL 6 - 23 mg/dL [facility] Albumin BCP dye [Mass/Vol] 4.4 g/dL Normal 3.4-5.0 [facility] Comment on above: Performed By: #### 5 7021-8 #### REYNA HATHAWAY ([id number]) [facility] ([facility]) [address] [place] [address] ALP [Catalytic activity/Vol] 59 U/L Normal 33-110 [facility] Comment on above: Performed By: #### 5 7021-8 #### REYNA HATHAWAY ([id number]) [facility] ([facility]) [address] [place] [address] ALT With P-5'-P [Catalytic activity/Vol] 31 U/L Normal 7-45 [facility] Comment on above: Result Comment: Cony ents treated with Sulfasalazine may generate falsely decreased results for ALT. Performed By: #### 5 7021-8 #### REYNA HATHAWAY ([id number]) [facility] ([facility]) [address] [place] [address] 44979 Anion gap [Moles/Vol] 19 mmol/L Normal 10-20 [facility] Comment on above: Performed By: #### 5 7021-8 #### REYNA HATHAWAY ([id number]) [facility] ([facility]) [address] [place] [address] 99082 AST With P-5'-P [Catalytic activity/Vol] 19 U/L Normal 9-39 [facility] Comment on above: Performed By: #### 5 7021-8 #### REYNA HATHAWAY ([id number]) [facility] ([facility]) [address] [place] [address] Bilirubin [Mass/Vol] 0.4 mg/dL Normal 0.0-1.2 [facility] Comment on above: Performed By: #### 5 7021-8 #### REYNA HATHAWAY ([id number]) [facility] ([facility]) [facility] [place] [address] Calcium [Mass/Vol] 8.9 mg/dL Normal 8.6-10.3 [facility] Comment on above: Performed By: #### 5 7021-8 #### REYNA HATHAWAY ([id number]) [facility] ([facility]) [address] [place] [address] 35421 Chloride [Moles/Vol] 104 mmol/L Normal 98-107 [facility] Comment on above: Performed By: #### 5 7021-8 #### REYNA HATHAWAY ([id number]) [facility] ([facility]) [address] [place] [address] 54331 CO2 [Moles/Vol] 17 mmol/L Low 21-32 [facility] Comment on above: Performed By: #### 5 7021-8 #### REYNA HATHAWAY ([id number]) [facility] ([facility]) [address] [place] [address] 10808 Creatinine [Mass/Vol] 0.70 mg/dL Normal 0.50-1.05 [facility] Comment on above: Performed By: #### 5 7021-8 #### REYNA HATHAAWY ([id number]) [facility] ([facility]) [address] [place] [address] 09854 GFR/1.73 sq M.predicted MDRD (S/P/Bld) [Vol rate/Area] mL/min/{1.73_m2} Normal >60 [facility] Comment on above: Result Comment: Calc ulations of estimated GFR are performed using the 2020 CKD-EPI Study Refit equation without the race variable for the IDMS-Traceable creatinine methods. https://jasn.asnjournals.org/content//ASN.45013 33202 Performed By: #### 5 7021-8 #### REYNA HATHAWAY ([id number]) [facility] ([facility]) [address] [place] [address] 46373 Glucose [Mass/Vol] 118 mg/dL High 74-99 [facility] Comment on above: Performed By: #### 5 7021-8 #### REYNA HATHAWAY ([id number]) [facility] ([facility]) [address] [place] [address] 45632 Potassium [Moles/Vol] 3.6 mmol/L Normal 3.5-5.3 [facility] Comment on above: Performed By: #### 5 7021-8 #### REYNA HATHAWAY ([id number]) [facility] ([facility]) [address] [place] [address] 57338 Protein [Mass/Vol] 7.3 g/dL Normal 6.4-8.2 [facility] Comment on above: Performed By: #### 5 7021-8 #### REYNA HATHAWAY ([id number]) [facility] ([facility]) [address] [place] [address] 91033 Sodium [Moles/Vol] 136 mmol/L Normal 136-145 [facility] Comment on above: Performed By: #### 5 7021-8 #### REYNA HATHAWAY ([id number]) [facility] ([facility]) [address] [place] [address] 75973 Urea nitrogen [Mass/Vol] 11 mg/dL Normal 6-23 [facility] Comment on above: Performed By: #### 5 7021-8 #### REYNA HATHAWAY ([id number]) [facility] ([facility]) [address] [place] [address] 04664 ECG 12-LEADon 07-11-2024 ECG 12-LEAD Ventricular Rate 98 Atrial Rate 98 P-R Interval 140 QRS Duration 74 Q-T Interval 366 QTC Calculation(Bazett) 467 P Walcott 73 R Walcott 78 T Walcott 70 QRS Count 16 Q Onset 220 P Onset 150 P Offset 198 T Offset 403 QTC Fredericia 431 Diagnosis Normal sinus rhythm Possible Left atrial enlargement Borderline ECG When compared with ECG of 12-JUN-2024 16:44, No significant change was found See ED provider note for full interpretation and clinical correlation Confirmed by Patricia Jimenez ([id number]) on 07/12/2024 9:42:18 PM Normal [facility] Lactateon 07-11-2024 Lactate [Moles/Vol] 1.1 mmol/L 0.4 - 2. 0 mmol/L [facility] Lactate [Moles/Vol] 1.1 mmol/L Normal 0.4-2.0 [facility] Comment on above: Order Comment: Venip uncture immediately after or during the administration of Metamizole may lead to falsely low results. Testing should be performed immediately prior to Metamizole dosing. Performed By: #### 5 7021-8 #### REYNA HATHAWAY ([id number]) [facility] ([facility]) [address] [place] [address] 57259 Lactate [Moles/Vol] 3.2 mmol/L High 0.4 - 2. 0 mmol/L [facility] Lactate [Moles/Vol] 3.2 mmol/L High 0.4-2.0 [facility] Comment on above: Order Comment: Venip uncture immediately after or during the administration of Metamizole may lead to falsely low results. Testing should be performed immediately prior to Metamizole dosing. Performed By: #### 5 7021-8 #### REYNA HATHAWAY ([id number]) [facility] ([facility]) [address] [place] [address] 10705 Lactate [Moles/Vol]on 2024 Interpretation and review of laboratory results Normal [facility] Venipuncture immediately after or during the administration of Metamizole may lead to falsely low results. Testing should be performed immediately prior to Metamizole dosing. [facility] Interpretation and review of laboratory results Abnormal [facility] Venipuncture immediately after or during the administration of Metamizole may lead to falsely low results. Testing should be performed immediately prior to Metamizole dosing. [facility] Lipaseon 07-11-2024 Lipase [Catalytic activity/Vol] 21 U/L 9 - 82 U/L [facility] Lipase [Catalytic activity/V ol]on 07-11-2024 Interpretation and review of laboratory results Normal [facility] Venipuncture immediately after or during the administration of Metamizole may lead to falsely low results. Testing should be performed immediately prior to Metamizole dosing. [facility] Triacylglycerol lipaseon Lipase [Catalytic activity/Vol] 21 U/L Normal 9-82 [facility] Comment on above: Order Comment: Venip uncture immediately after or during the administration of Metamizole may lead to falsely low results. Testing should be performed immediately prior to Metamizole dosing. Performed By: #### 5 7021-8 #### ORELLANA RIVAS ([id number]) [facility] ([facility]) [address] [place] [address] Urinalysis complete W Reflex Culture panel (U)on 07-11-2024 Appearance (U) Clear Clear [facility] Bilirubin (U) [Mass/Vol] Negative NEGATIVE mg/dL [facility] Color (U) Colorless Abnormal Light-Yellow , Yellow, Dark-Yellow [facility] Epithelial cells.squamous Auto (Urine sed) [#/Area] 1-9 (SPARSE) Reference range not established. /HPF [facility] Glucose Auto test strip (U) [Mass/Vol] Normal Normal mg/dL [facility] Interpretation and review of laboratory results Abnormal [facility] Ketones (U) [Mass/Vol] Negative NEGAT ASHISH mg/dL [facility] Leukocyte esterase Auto test strip Ql (U) Negative NEGATIVE [facility] Mucus Auto (Urine sed) [#/Area] FEW Reference range not established. /LPF [facility] Nitrite Auto test strip Ql (U) Negative NEGATIVE [facility] pH (U) 6.5 [pH] 5.0, 5.5, 6.0, 6.5, 7.0, 7.5, 8.0 [facility] Protein (U) [Mass/Vol] Negative NEGAT ASHISH, 10 (TRACE), 20 (TRACE) mg/dL [facility] RBC (U) [#/Vol] 0.1 (1+) Abnormal NEGATIVE mg/dL [facility] RBC Auto (Urine sed) [#/Area] NONE NONE, 1-2, 3-5 /HPF [facility] Specific gravity (U) [Rel density] 1.013 1.005 - 1.035 [facility] Urobilinogen (U) [Mass/Vol] Normal Normal mg/dL [facility] WBC Auto (Urine sed) [#/Area] 1-5 1-5, NONE /HPF [facility] Appearance (U) Clear Normal Clear [facility] Comment on above: Performed By: #### 5 7021-8 #### REYNA HATHAWAY ([id number]) [facility] ([facility]) [address] [place] [address] 98517 Bilirubin (U) [Mass/Vol] Negative Normal NEGATIVE [facility] Comment on above: Performed By: #### 5 7021-8 #### REYNA HATHAWAY ([id number]) [facility] [facility] ([facility]) [address] [place], [place] [id number] Color (U) Colorless Normal Light-Yellow , Yellow, Dark-Yellow [facility] Comment on above: Performed By: #### 5 7021-8 #### REYNA HATHAWAY ([id number]) [facility] ([facility]) [address] [place], [place] [id number] Epithelial cells.squamous Auto (Urine sed) [#/Area] 1-9 (SPARSE) Normal Reference range not established. [facility] Comment on above: Performed By: #### 5 7021-8 #### REYNA HATHAWAY ([id number]) [facility] ([facility]) [address] [place] [address] 33926 Glucose Auto test strip (U) [Mass/Vol] Normal Normal Normal [facility] Comment on above: Performed By: #### 5 7021-8 #### REYNA HATHAWAY ([id number]) [facility] ([facility]) [address] [place] [address] 44925 Ketones (U) [Mass/Vol] Negative Normal NEGATIVE [facility] Comment on above: Performed By: #### 5 7021-8 #### REYNA HATHAWAY ([id number]) [facility] ([facility]) [address] [place] [address] 50827 Leukocyte esterase Auto test strip Ql (U) Negative Normal NEGATIVE [facility] Comment on above: Performed By: #### 5 7021-8 #### REYNA HATHAWAY ([id number]) [facility] ([facility]) [address] [place] [address] 40590 Mucus Auto (Urine sed) [#/Area] FEW Normal Reference range not established. [facility] Comment on above: Performed By: #### 5 7021-8 #### REYNA HATHAWAY ([id number]) [facility] ([facility]) [address] [place] [address] 11477 Nitrite Auto test strip Ql (U) Negative Normal NEGATIVE [facility] Comment on above: Performed By: #### 5 7021-8 #### REYNA HATHAWAY ([id number]) [facility] ([facility]) [address] [place] [address] 96076 pH (U) 6.5 [pH] Normal 5.0, 5.5, 6.0, 6.5, 7.0, 7.5, 8.0 [facility] Comment on above: Performed By: #### 5 7021-8 #### REYNA HATHAWAY ([id number]) [facility] ([facility]) [address] [place] [address] 54379 Protein (U) [Mass/Vol] Negative Normal NEGAT ASHISH, 10 (TRACE), 20 (TRACE) [facility] Comment on above: Performed By: #### 5 7021-8 #### REYNA HATHAWAY ([id number]) [facility] ([facility]) [address] [place] [address] 69138 RBC (U) [#/Vol] 0.1 (1+) Abnormal NEGATIVE [facility] Comment on above: Performed By: #### 5 7021-8 #### REYNA HATHAWAY ([id number]) [facility] ([facility]) [address] [place] [address] 20067 RBC Auto (Urine sed) [#/Area] NONE Normal NONE, 1-2, 3-5 [facility] Comment on above: Performed By: #### 5 7021-8 #### REYNA HATHAWAY ([id number]) [facility] ([facility]) [address] [place] [address] 71347 Specific gravity (U) [Rel density] 1.013 Normal 1.005-1.035 [facility] Comment on above: Performed By: #### 5 7021-8 #### REYNA HATHAWAY ([id number]) [facility] ([facility]) [address] [place] [address] 11819 Urobilinogen (U) [Mass/Vol] Normal Normal Normal [facility] Comment on above: Performed By: #### 5 7021-8 #### REYNA HATHAWAY ([id number]) [facility] ([facility]) [address] [place] [address] 24929 WBC Auto (Urine sed) [#/Area] 1-5 Normal 1-5, NONE [facility] Comment on above: Performed By: #### 5 7021-8 #### REYNA HATHAWAY ([id number]) [facility] ([facility]) [address] [place] [address] 50453 Cholangiogram/ O R,Initialon 07-05-2024 Cholangiogram/ O R,Initial [facility] Imaging Services [address] [place] [address] [id number] Cholangiogram/ O R,Initial MR#: [id number] Acct: [id number] Name: DALLAS FARIAS Rep #: [id number] : 1985 F 39 From: Manuel kunz MD PCP: WANG Najera Status: [facility] Study: Cholangiogram/ O R,Initial Date of Exam: 07/05 Exam# [id number] Ordering Dr: Christian Hollins EXAM: Cholangiogram. CLINICAL HISTORY: Pain. COMPARISON: None. TECHNIQUE: Cholangiogram images are provided. Total exposure time 7.8 seconds. One cine run Total radiation dose 2.9 mGy FINDINGS: Cholangiogram was performed. No evidence of contrast leakage. Nondilated biliary tree. Nondilated pancreatic duct. RAD/Cholangiogram/ O R,Initial IMPRESSION: Nondilated biliary tree. Cholangiogram was performed. No contrast leakage. [facility] CC: KILN CLEANERMaikel Moreno; Dr. Christian Hollins MD Billposter: Signed Normal [facility] Discharge Instructionon 06-19 Discharge Instruction [facility] Medical Records Department [address] [place] [address] Instructions for Home/Discharge Instructions 07/05/24 0826 MR#: [id number] Acct: [id number] Name: DALLAS FARIAS Rep #: [id number] : 1985 39 From: Christian Hollins MD PCP: WANG Najera Status:REG [facility] Discharge Instructions Procedure Gallbladder Diet Discharge Diet: Light diet - advance as tolerated Activity Discharge Activity: May Not Drive (for 2-3 days or while taking narcotic pain medications.) and - (Do not drive, work heavy equipment or sign legal documents for 24 hours.) May shower in (days): 1 Lifting Restrictions: 20 lbs for 2 weeks Additional Activity Instructions:: Pain medication may cause nausea. You should typically eat light foods as you take your pain medications. Pain medication may also cause constipation. If this is a problem for you, please discuss with your doctor. Dressing / Incision Call your doctor if your incision/area has: Continuous Slow Oozing, Sudden Increased Bleeding, Increased Pain/ Swelling, Increased Redness and Foul Smelling Discharge Call your doctor if you observe: Fever of 101 or Higher Suture Line Care: Avoid Pulling/Pushing and Avoid Pinching/Bending Remove Dressing in: 2 days Additional Dressing/Incision Instructions:: Leave operative bandaids on for 2 days. When you remove dressing, leave Steri-Strips on until your follow-up appointment, or until the Steri-Strips fall off on their own. Follow Up Care Please Follow Up With: Christian Hollins MD When: Please call to schedule 2 week follow up appointment. [phone] Test Results: Test results from this visit will be discussed in further detail at your follow-up appointment, if applicable. Discharge Plan Admission Attending Provider: Christian Hollins Primary Care Provider: Nona Moreno Instructions Print Language: Palestinian Discharge Orders/Prescriptions Prescriptions: New oxycodone 5 mg Tablet 5 - 10 mg PO Q4H PRN PRN (Reason: Pain Score 4-10) 5 Days Qty: 20 0RF No Action levothyroxine 25 mcg tablet 25 mcg PO QODAY Patient Comments: TAKE 1 TABLET BY MOUTH EVERY OTHER DAY cholecalciferol (vitamin D3) 25 mcg (1,000 unit) capsule 25 mcg PO DAILY folic acid 1 mg tablet 1 mg PO DAILY vitamin B complex [B Complex-Vitamin B12] Tablet 1 tab PO DAILY apple cider vinegar 300 mg tablet 300 mg PO DAILY melatonin 3 mg capsule 3 mg PO HS PRN (Reason: sleep) acetaminophen [Tylenol] 325 mg tablet 650 mg PO Q4H PRN (Reason: pain) turmeric (bulk) [Curcumin] miscellaneous DAILY Referrals / Follow Up: Nona Moreno NP-C [Primary Care Provider] - Disposition Disposition (needs filled in before D/C Order can be placed): Home, Self Care 07/05/24 0827 Christian Hollins MD CC: WANG Moreno Signed [facility] MR/POSTOP.[facility] 07-05-2024 MR/POSTOP.[facility] Medical Records Department [address] [place] [address] Anesthesia Postop Eval I 07/05/24 1147 MR#: [id number] Acct: [id number] Name: DALLAS FARIAS Rep #: [id number] : 1985 39 From: Fede Ronquillo CRNA PCP: WANG Najera Status:REG [facility] Y Race: C Location: [place] [address] Anesthesia: Postop Eval I Current Vital Signs Temperature: 97.4 F Pulse Rate: 59 Blood Pressure: 117/75 Respiratory Rate: 18 Pulse Ox: 100 Oxygen Delivery Method: Room Air Assessment Airway patent: Yes Spontaneous unlabored respirations: Yes nausea: No Vomiting: No Anesthesia Complication: No Fluid Hydration Crystalloid volume administer (ml): 1,000 Total IV fluid infused: 1,000 Progress Note Anesthesia document: Postop Eval 1 completed: Yes 07/05/24 1148 Date Fede Ronquillo CHIEF STATION ENGINEER Cosigner Signature: Date CC: Signed Normal [facility] MR/OFZZNISO8ah 07-05-2024 MR/POSTOPAN2 [facility] Medical Records Department [address] [place] [address] Anesthesia Postop Eval II 07/05/24 1508 MR#: [id number] Acct: [id number] Name: DALLAS FARIAS Rep #: [id number] : 1985 39 From: Marisol Alvarado PCP: WANG Najera Status:[facility] Y Race: C [place] [facility] Anesthesia Postop Eval I Sum Postop Eval Completion status Anesthesia document: Postop Eval 1 completed: Yes Anesthesia Postop Eval I Summary Anesthesia Postop Eval I Summary: Anesthesia Postop Eval I: Assessment Summary Airway patent Yes 07/05/24 11:48 CHIEF STATION ENGINEER.ACAR Spontaneous unlabored Yes 07/05/24 11:48 CHIEF STATION ENGINEER.ACAR respirations Mental status nausea No 07/05/24 11:48 CHIEF STATION ENGINEER.ACAR Vomiting No 07/05/24 11:48 CHIEF STATION ENGINEER.ACAR Anesthesia Postop Eval I: Fluid Summary Crystalloid volume administer 1,000 07/05/24 11:48 CHIEF STATION ENGINEER.ACAR (ml) Colloids volume administered ( ml) Blood Product volume administered (ml) Total IV fluid infused 1,000 07/05/24 11:48 CHIEF STATION ENGINEER.ACAR Anesthesia Postop Eval I: Summary Notes Anesthesia Complication No 07/05/24 11:48 CHIEF STATION ENGINEER.ACAR Anesthesia Complication Comment: Post-operative progress note Anesthesia: Postop Eval II Evaluation Mental status: Awake and Calm Pain Level: 0 nausea: No Vomiting: No Complications Anesthesia Complication: No 07/05/24 1508 Date Marisol Alvarado Cosigner Signature: Date CC: Signed Normal [facility] Operative Reporton 5 Operative Report [facility] Medical Records Department [address] [address] Operative Report 07/05/24 0824 MR#: [id number] Acct: [id number] Name: DALLAS FARIAS Rep #: [id number] : 1985 39 From: Christian Hollins MD PCP: WANG Najera Status:[facility] Location: [place] [address] Operative Report (Standard) Operative Information Date of Procedure: 07/05/24 Pre-Operative Diagnosis: Biliary dyskinesia Post-Operative Diagnosis: Biliary dyskinesia Surgery/Procedure Performed: Laparoscopic cholecystectomy with cholangiograms filter operator: Yes Precision Thread Grinder Operator: Hector Alejandre Tasks completed by first assistant manager: Opening, Closing and Retracting Type of Anesthesia: General/Regional RN Documented Start/Stop Times: Operation Date: 07/05/24 07:30 Case Time Into Pre-Op 07/05/24 06:11 Out of Pre-Op 07/05/24 07:22 Anesthesia Start 07/05/24 07:24 Into Room 07/05/24 07:24 Procedure Start 07/05/24 07:46 Procedure Start Time: 07:46 Procedure Stop Time: 08:30 Select all DRAINS/GRAFTS/IMPLANTS that apply: None Estimated Blood Loss: 5 Specimen collected: Yes Description of specimen(s) removed: Gallbladder Description of surgery: After obtaining informed consent patient was brought back to the operating room. General anesthesia was induced. The abdomen was prepped and draped in usual sterile fashion. A small midline incision was made superior to the umbilicus and deepened to the level of fascia. The fascia was elevated and incised. Next the peritoneum was elevated and incised in the same fashion. Finger sweep was performed and the Sapp trocar was placed into the abdomen. The balloon was inflated. The abdomen was inflated to 15 mmHg. Next a camera was introduced into the abdomen and the abdomen was inspected. Next under direct visualization three 5-mm ports were placed one subxiphoid and 2 subcostal. Next the gallbladder was elevated and retracted toward the right shoulder. The peritoneum was stripped from the gallbladder. The infundibulum was located and retracted laterally. Next the triangle of Calot was dissected and the cystic duct and cystic artery were identified. Cholangiograms were performed. The Whelan clamp was used to clamp across the infundibulum and the catheter needle was inserted into the gallbladder. Under fluoroscopy contrast was instilled into the gallbladder and the common duct, cystic duct as well as proximal hepatic ducts were identified. There was good filling of the duodenum. There were no filling defects noted in the common bile duct. The clamp was removed as well as the needle and the infundibulum was grasped once more. Three hemolock clips were placed across the cystic duct. The cystic duct was then divided leaving 2 clips on the stump. The cystic artery was clipped and divided in the same fashion. The hook cautery was then used to take the gallbladder off of the gallbladder bed. Hemostasis was obtained. Gallbladder fossa was irrigated and no active bleeding or bile leakage was noted. Next the camera was introduced in the subxiphoid port. An Endopouch bag was placed through the umbilical port and the gallbladder was placed into it. The gallbladder was then removed through the umbilical incision. The camera was then reinserted through the umbilical port. The gallbladder fossa was inspected once more and noted to be hemostatic with no leaking bile. The abdomen was suctioned dry. The 5 mm ports were removed under direct visualization. The umbilical port was then removed and the air was removed from the abdomen. Next using an 0 Vicryl suture the umbilical fascia was closed in a [id number] fashion. The umbilical port site was irrigated local anesthetic was administered to all the incisions. All the incisions were closed with interrupted subcuticular 4-0 Monocryl sutures followed by Steri-Strips and dressings. The patient was awoken and taken to PACU in stable condition. Surgical Findings: Normal intraoperative cholangiogram's, wound class II Complications Complications: No Admit VTE Documentation VTE Mechan Device Prophylaxis: SCD's 07/05/24 08 Cosigner Signature (if applicable): CC: WANG Moreno; Dr. Christian Hollins MD Signed [facility] ,Urineon 07-05-2024 Beta HCG ( test) Ql (U) Negative Normal [facility] Comment on above: Result Comment: Very dilute urine specimens, as indicated by a low specific gravity, may not contain corporate sales representative levels of hCG. If is still suspected, a first morning urine specimen should be collected 48 hours later and tested. Performed By: #### L 100.0100, L500.4050 #### [facility] [place], [address] Surgery Specimen Level IIIon 07-05-2024 Surgery Specimen Level III ---- Patient Age/Sex Location Account Attending Physician ---- DALLAS FARIAS 39/F [facility] [id number] Dr. Christian Hollins MD ---- Specimen: [id number] Received: 07/05/24 Status: MONIK Negro Num: [id number] Spec Type: TATE Smalls Dr: Dr. Christian Hollins MD HEADER OPERATION: Laparoscopic, cholecystectomy with IOC PRE-OP DIAGNOSIS: Biliary dyskinesia TISSUE SUBMITTED: A- Gallbladder ---- MICROSCOPIC DIAGNOSIS A. Gallbladder, cholecystectomy: * Mild chronic cholecystitis MICROSCOPIC DESCRIPTION Slides are reviewed. GROSS DESCRIPTION A. Received in formalin in a container labeled with the patient's name, date of , and gallbladder is an intact 7.6 x 2.9 x 2.7 cm cholecystectomy specimen. A clamped 0.5 x 0.3 cm cystic duct margin is identified and inked black. The serosa is within normal limits. The specimen is opened to reveal an abundance of thick and translucent green bile with no stones identified in the specimen or in the container. The mucosa is velvety and red-sarabia with an average wall thickness of 0.2 cm. Gas Derrick Operator sections:A1. Cystic duct margin, en face with full-thickness sections [facility] 07/06/2024 CPT:72525 ---- Patient Age/Sex Location Account Attending Physician ---- DALLAS FARIAS 39/F [facility] [id number] Dr. Christian Hollins MD ---- Signed (signature on file) Dr. Maribel Ackerman DO 07/06/24 1400 ---- Normal [facility] Comment on above: Performed By: #### P SUIII ####[facility] [address] [place], [address] Urine testOrdered By: Filippo Sánchez on 07-05-2024 HCG ( test) Ql (U) Negative [facility] Comment on above: Very dilute urine sp ecimens, as indicated by a low specificgravity, may not contain corporate sales representative levels of hCG. If is still suspected, a first morning urinespecimen should be collected 48 hours later and tested. TSH DL <= 0.005 mIU/L QnOrde red By: Filippo Sánchez on 07-04-2024 Thyroid Stimulating Hormone (TSH) 1.860 uIU/mL 0.300-4.200 [facility] TSH Qn 1.860 uIU/mL 0.300-4.200 [facility] Thyroid Stim Hormone (TSH)on 07-04-2024 TSH 1.860 uIU/mL Normal 0.300-4.200 [facility] Comment on above: Performed By: #### L 100.0100, L500.4050 #### [facility] [address] [place], [address] 12 Lead EKGon 07-03-2024 12 Lead EKG [facility] Cardiovascular Services [address] [place] [address] 12 Lead EKG 07/03/24 0848 MR#: [id number] Acct: [id number] Name: DALLAS FARIAS Rep #: [id number] : 1985 39 From: Juan Antonio Handley MD Attending Dr: Dr. Christian Hollins MD Status: PRE SDC Ordering Dr: Filippo Sánchez MD Date: 07/03/24 Location: [facility] Sex: F C Admitted: Test Reason : PREOP Blood Pressure : */* mmHG Vent. Rate : 71 BPM Atrial Rate : 71 BPM P-R Int : 160 ms QRS Dur : 74 ms QT Int : 398 ms P-R-T Axes : 39 57 55 degrees QTcB Int : 432 ms Normal sinus rhythm Normal ECG Confirmed by Juan Antonio Handley ([id number]), mapping editor MERCEDEZ DECKER ([id number]) on 07/03/2024 11:22:54 AM Referred By: GURVINDER Confirmed By: Juan Antonio Handley 07/03/24 1122 Date Juan Antonio Handley MD CC: WANG Moreno; Dr. Christian Hollins MD; Dr. Filippo Sánchez MD Signed Normal [facility] Electrocardiogram reportOrde red By: Juan Antonio Handley on 07-03-2024 EKG study [facility] Cardiovascular Services [address] [facility] [place] [address] 12 Lead EKG 07/03/24 0848 MR#: [id number] Acct: [id number] Name: DALLAS FARIAS Rep #:[id number] : 1985 39 From: Juan Antonio trotter MD Attending Dr: Dr. Christian Hollins MD Status: PRE SDC Ordering Dr: Filippo Sánchez MD Date: 06/19 08/12 Location: [facility] Sex: F C Admitted: Test Reason : PREOP Blood Pressure : */* mmHG Vent. Rate : 71 BPM Atrial Rate : 71 BPM P-R Int : 160 ms QRS Dur : 74 ms QT Int : 398 ms P-R-T Axes : 39 57 55 degrees QTcB Int : 432 ms Normal sinus rhythm Normal ECG Confirmed by Juan Antonio Handley ([id number]), mapping editor MERCEDEZ DECKER ([id number]) on 511:22:54 AM Referred By: GURVINDER Confirmed By: Juan Antonio Handley 07/03/24 1122 Date _ Juan Antonio Handley MD CC: KILN CLEANER-C Nona Moreno; Dr. Christian Hollins MD; Dr. Filippo Sánchez MD ~ [facility] Other MR/PAT.Becca 07-03-2024 MR/PAT.[facility] Medical Records Department [address] [place] [address] PAT - Anesthesia 07/03/24 1445 MR#: [id number] Acct: [id number] Name: DALLAS FARIAS Rep #: [id number] : 1985 39 From: Shravan Coelho MD PCP: WANG Najera Status:PRE [facility] Y Race: C Location: [facility] Pre-Assessment Diagnosis/Proposed Procedure Planned Operative Procedure(s): VINH ALMAGUER WITH GRAMS Anesthesia History Anesthesia History - body bumper: Anesthesia History - body bumper Hx Hospitalization No 07/03/24 11:37 Any Problems With Anesthesia No 07/03/24 11:37 Cholinesterase deficiency No 07/03/24 11:37 You/Your Family Experience No 07/03/24 11:37 fever (hyperthermia) with Relationship Recent Exposure to Contagious Disease Does patient have nerve No 07/03/24 11:37 stimulator Patient instructed to have device shut off --Does patient have Pacemaker or ICD? When Was Last Pacemaker Check QUESTION #4 FULL TEXT: You/Your Family Experience fever (hyperthermia) with Anesthesia Last Oral Intake Last Oral intake: Last Oral Intake NPO since Meds taken in AM with sips of water? 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 - body bumper: PONV - body bumper Female Yes 07/03/24 11:37 HX of Motion Sickness Yes 07/03/24 11:37 HX of N/V After Surgery No 07/03/24 11:37 Non-Smoker Yes 07/03/24 11:37 Duration of Surgery greater No 07/03/24 11:37 than 60 minutes Number of Risk Factors 3 07/03/24 11:37 PONV Score Moderate Risk 07/03/24 11:37 Height Weight Height Weight: Anesthesia: Height Weight Height 5 ft 4 in 06/27/24 14:29 Respiratory Assessment Respiratory Assessment - body bumper: Respiratory Tract Infection Hx - body bumper Hx Respiratory Tract Infection No 07/03/24 11:37 STOP Sleep Apnea STOP Sleep Apnea - body bumper: STOP Sleep Apnea - body bumper Hx Hypertension No 07/03/24 11:37 Hx Sleep Apnea No 07/03/24 11:37 CPAP BIPAP Do you snore loudly (louder Yes 07/03/24 11:37 than talking or can be heard Do you often feel tired/ No 07/03/24 11:37 fatigued/ sleepy during daytime? Has anyone observed you stop No 07/03/24 11:37 breathing during sleep? STOP Results Negative 07/03/24 11:37 QUESTION #5 FULL TEXT : Do you snore loudly (louder than talking or can be heard through closed doors)? 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 Specify any problems Hx of Preganancy in last 3 No 07/03/24 11:37 Months Nurse Filling Out Transfusion DSCHRIBER 07/03/24 11:37 Questions: Date: 07/03/24 07/03/24 11:37 Time: 11:39 04/15/25 11:37 Patient unable to answer at this time (ie. 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 History - body bumper: /Reproductive Hx- body bumper Hx Now No 07/03/24 11:37 Gestational Age (in weeks): EDC: Hx Hx Para Hx Section SAB No 07/03/24 11:37 PFSH Medical History (Updated 07/03/24 @ 11:47 by Estephanie Altman) Anxiety Rheumatoid arthritis Back pain Syncope Gastric reflux Shortness of breath on exertion Leg cramps History of edema History of irregular heartbeat Wears glasses Alcohol use Anemia Migraine headache Dietary restriction History of IBS Former smoker History of echocardiogram Cardiology follow-up encounter Allergic dermatitis Depression PVC's (premature ventricular contractions) Palpitations Polyarthralgia Hypothyroidism History of prolactinoma Home Medications ???Medication ???Instructions ???Recorded ???Last Taken ???Type apple cider vinegar 300 mg tablet 300 mg PO DAILY 07/12/22 Unknown History cholecalciferol (vitamin D3) 25 25 mcg PO DAILY 07/12/22 Unknown H istory mcg (1,000 unit) capsule folic acid 1 mg tablet 1 mg PO DAILY 07/12/22 Unknown His tory levothyroxine 25 mcg tablet (more content not included)... Normal [facility] Surgery Visit Reporton 06-27 Surgery Visit Report [facility] [address] [place] [address] [address] [place] [address] OFFICE VISIT Date of Service: 06/27/24 MR#: [id number] Acct: [id number] Name: DALLAS FARIAS Rep #: [id number] : 1985 Provider: CATHLEEN hassan Age/Sex: 39/F Location: [facility] Status: Signed Intake Vital Signs 04/27/24 15:34 06/27/24 14:29 Height 5 ft 4 in 5 ft 4 in Weight: 177 lb BMI 30.4 BP 116/72 Blood Pressure Location Rt brachial Position Sitting Respiration 18 Pulse 63 Pulse Source Monitor Temp 97.5 F L Temp Source Temporal Pulse Oximetry (%) 100 Oxygen Delivery Method room air Intake Visit Reasons: UPDATE H P - GALLBLADDER SURGERY Chief Complaint: Update H P- gallbladder surgery Is patient in pain?: No Allergies gluten Allergy (Verified 06/27/24 14:30) Abd cramps/diarrhea Medications ???Medication ???Instructions ???Recorded ???Confirmed ???Type apple cider vinegar 300 mg tablet 300 mg PO DAILY 07/12/22 06/27/24 History cholecalciferol (vitamin D3) 25 25 mcg PO DAILY 07/12/22 06/27/24 History mcg (1,000 unit) capsule folic acid 1 mg tablet 1 mg PO DAILY 07/12/22 06/27/24 Hi story levothyroxine 25 mcg tablet 25 mcg PO QODAY 07/12/22 06/27/24 History vitamin B complex (B 1 tab PO DAILY 07/12/22 06/27/24 H istory Complex-Vitamin B12 tablet) melatonin 3 mg capsule 3 mg PO HS PRN sleep 10/13/2212/13 History ondansetron 4 mg disintegrating 4 mg PO Q8H PRN PRN Nausea #14 tab s 08/14/23 06/27/24 Rx tablet PFSH Medical History Wears glasses Alcohol use History of steroid therapy Thyroid disease Anemia Easy bruising Migraine headache Dietary restriction History of IBS Heartburn Gastric reflux Shortness of breath on exertion Former smoker History of echocardiogram Cardiology follow-up encounter Allergic dermatitis Depression IBS (irritable bowel syndrome) Weight gain PVC's (premature ventricular contractions) Palpitations Polyarthralgia Hypothyroidism History of prolactinoma Surgical History H/O section Family History Mother Hearing loss Grandmother Diabetes Colon cancer PVC (premature ventricular contraction) Grandfather Diabetes Crohn's disease Heart disease Grandmother Alzheimers disease Social History current occupation: [employer] Smoking Status: Former smoker how long ago did patient quit smokin alcohol intake: current substance use type: does not use caffeine: No frequency: daily HPI HPI Surgical H P: Yes HPI: Patient is a 39 y/o F who presents for an update history and physical for an elective gallbladder removal. She notes since her last visit with Dr. Hollins, she has had 1 gallbladder attack. She notes intermittent nausea. She denies any recent hospitalizations or illnesses. She notes a cardiac history of PVC's. She states she follows with Dr. Levine and had completed a Holter monitor. She notes per cardiology, all appeared normal. She is wondering if she has POTS disease. She has not been worked up for this yet. She notes nausea with dizziness at times. She denies any complications or side effects from anesthesia. She notes abdominal surgical history of x 1. She denies any pulmonary history. She does note at nighttime while laying down, she has a slight wheezing noise that occurs with a deep breath. She denies hearing this similar noise while sitting up. She denies any previous myocardial infarction or stroke. Patient's previous history per Dr. Hollins: Patient is a 38-year-old female here for right upper quadrant pain. She says has been going on for several years. She had a HIDA back several years ago that showed an ejection fraction of 12% and they wanted to take her gallbladder out but she did not have the time or money to have surgery. She says that it hurts really badly when she eats unhealthy food. She also reports that it hurt really badly after the CCK injection during the HIDA. ROS General General: Yes weight change; No appetite, fatigue, colon cancer, breast cancer or weakness HEENT HEENT: No difficulty swallowing, eye injury, eye surgery, swollen glands or hoarseness Endo Endocrine: Yes thyroid disease; No diabetes mellitus, thyroid cancer, Hair loss, heat intolerance or cold intolerance Skin Skin: No rash or changing moles Breast Breast: No left breast lump, right breast lump, nipple discharge, breast pain, abnormal mammogram, abnormal US or breast enlargement Musc Musculoskeletal: Yes back problems and rheumat (more content not included)... Normal [facility] ECG 12 leadOrdered By: Gina Hyatt on 06-13-2024 Atrial Rate 89 BPM [facility] Work Phone: P Walcott 53 degrees [facility] Work Phone: P Offset 199 ms [facility] Work Phone: P Onset 141 ms [facility] Work Phone: NM Interval 154 ms [facility] Work Phone: Q Onset 218 ms [facility] Work Phone: QRS Count 14 beats [facility] Work Phone: QRS Duration 78 ms [facility] Work Phone: QT Interval 378 ms [facility] Work Phone: QTC Calculation(Bazett) 459 ms [facility] Work Phone: QTC Fredericia 430 ms [facility] Work Phone: R Walcott 54 degrees [facility] Work Phone: T Walcott 46 degrees [facility] Work Phone: T Offset 407 ms [facility] Work Phone: Ventricular Rate 89 BPM [facility] Work Phone: [facility] Work Phone: ECG 12 leadon 06-13-2024 Normal sinus rhythm Normal ECG When compared with ECG of 27-SEP-2021 07:12, Previous ECG has undetermined rhythm, needs review ST no longer elevated in Inferior leads See ED provider note for full interpretation and clinical correlation Confirmed by Patricia Hyatt ([id number]) on 06/13/2024 11:48:35 AM [facility] Luisa Hyatt, INFRASTRUCTURE DESIGN ENGINEER-TERRAZZO GRINDER - 06/13/2024 Normal sinus rhythm Normal ECG When compared with ECG of 27-SEP-2021 07:12, Previous ECG has undetermined rhythm, needs review ST no longer elevated in Inferior leads See ED provider note for full interpretation and clinical correlation Confirmed by Patricia Hyatt ([id number]) on 06/13/2024 11:48:35 AM [facility] Work Phone: CBC W Auto Differential pane l (Bld)on 06-12-2024 Basophils (Bld) [#/Vol] 0.08 10*3/uL [facility] Basophils/100 WBC (Bld) 1 % 0.0 - 2.0 % [facility] Eosinophils (Bld) [#/Vol] 0.18 10*3/uL [facility] Eosinophils/100 WBC (Bld) 2.3 % 0.0 - 6.0 % [facility] Erythrocyte distribution width (RBC) [Ratio] 13.1 % 11.5 - 14.5 % [facility] Hematocrit (Bld) [Volume fraction] 39.4 % 36.0 - 46.0 % [facility] Hemoglobin (Bld) [Mass/Vol] 12.7 g/dL 12.0 - 16.0 g/dL [facility] Immature granulocytes (Bld) [#/Vol] 0.02 10*3/uL [facility] Immature granulocytes/100 WBC (Bld) 0.3 % 0.0 - 0.9 % [facility] Comment on above: Immature Granulocyte Count (IG) includes promyelocytes, myelocytes and metamyelocytes but does not include bands. Percent differential counts (%) should be interpreted in the context of the absolute cell counts (cells/UL). Lymphocytes (Bld) [#/Vol] 2.47 10*3/uL [facility] Lymphocytes/100 WBC (Bld) 31.5 % 13.0 - 44.0 % [facility] MCH (RBC) [Entitic mass] 31.1 pg 26.0 - 34.0 pg [facility] MCHC (RBC) [Mass/Vol] 32.2 g/dL 32.0 - 36.0 g/dL [facility] MCV (RBC) [Entitic vol] 96 fL 80 - 100 fL [facility] Monocytes (Bld) [#/Vol] 0.59 10*3/uL [facility] Monocytes/100 WBC (Bld) 7.5 % 2.0 - 10.0 % [facility] Neutrophils (Bld) [#/Vol] 4.5 10*3/uL [facility] Comment on above: Percent differential counts (%) should be interpreted in the context of the absolute cell counts (cells/uL). Neutrophils/100 WBC (Bld) 57.4 % 40.0 - 80.0 % [facility] Nucleated RBC/100 WBC (Bld) [Ratio] 0 % [facility] Platelets (Bld) [#/Vol] 300 10*3/uL [facility] RBC (Bld) [#/Vol] 4.09 10*6/uL [facility] WBC (Bld) [#/Vol] 7.8 10*3/uL [facility] Basophils (Bld) [#/Vol] 0.08 x10*3/uL Normal 0.00-0.10 [facility] Comment on above: Performed By: #### 5 7021-8 #### REYNA HATHAWAY ([id number]) [facility] ([facility]) [address] [place] [address] 62175 Basophils/100 WBC (Bld) 1.0 % Normal 0.0-2.0 [facility] Comment on above: Performed By: #### 5 7021-8 #### REYNA HATHAWAY ([id number]) [facility] ([facility]) [address] [place] [address] 31912 Eosinophils (Bld) [#/Vol] 0.18 x10*3/uL Normal 0.00-0.70 [facility] Comment on above: Performed By: #### 5 7021-8 #### REYNA HATHAWAY ([id number]) [facility] ([facility]) [address] [place] [address] 71372 Eosinophils/100 WBC (Bld) 2.3 % Normal 0.0-6.0 [facility] Comment on above: Performed By: #### 5 7021-8 #### REYNA HATHAWAY ([id number]) [facility] ([facility]) [address] [place] [address] 44865 Erythrocyte distribution width (RBC) [Ratio] 13.1 % Normal 11.5-14.5 [facility] Comment on above: Performed By: #### 5 7021-8 #### REYNA HATHAWAY ([id number]) [facility] ([facility]) [address] [place] [address] 89466 Hematocrit (Bld) [Volume fraction] 39.4 % Normal 36.0-46.0 [facility] Comment on above: Performed By: #### 5 7021-8 #### REYNA HATHAWAY ([id number]) [facility] ([facility]) [address] [place] [address] 10444 Hemoglobin (Bld) [Mass/Vol] 12.7 g/dL Normal 12.0-16.0 [facility] Comment on above: Performed By: #### 5 7021-8 #### REYNA HATHAWAY ([id number]) [facility] ([facility]) [address] [place] [address] 97119 Immature granulocytes (Bld) [#/Vol] 0.02 x10*3/uL Normal 0.00-0.70 [facility] Comment on above: Performed By: #### 5 7021-8 #### REYNA HATHAWAY ([id number]) [facility] ([facility]) [address] [place] [address] 01274 Immature granulocytes/100 WBC (Bld) 0.3 % Normal 0.0-0.9 [facility] Comment on above: Result Comment: Aditi ture Granulocyte Count (IG) includes promyelocytes, myelocytes and metamyelocytes but does not include bands. Percent differential counts (%) should be interpreted in the context of the absolute cell counts (cells/UL). Performed By: #### 5 7021-8 #### REYNA HATHAWAY ([id number]) [facility] ([facility]) [address] [place] [address] 62893 Lymphocytes (Bld) [#/Vol] 2.47 x10*3/uL Normal 1.20-4.80 [facility] Comment on above: Performed By: #### 5 7021-8 #### REYNA HATHAWAY ([id number]) [facility] ([facility]) [address] [place] [address] 51584 Lymphocytes/100 WBC (Bld) 31.5 % Normal 13.0-44.0 [facility] Comment on above: Performed By: #### 5 7021-8 #### REYNA HATHAWAY ([id number]) [facility] ([facility]) [facility] [place] [address] MCH (RBC) [Entitic mass] 31.1 pg Normal 26.0-34.0 [facility] Comment on above: Performed By: #### 5 7021-8 #### REYNA HATHAWAY ([id number]) [facility] ([facility]) [address] [place] [address] 08540 MCHC (RBC) [Mass/Vol] 32.2 g/dL Normal 32.0-36.0 [facility] Comment on above: Performed By: #### 5 7021-8 #### REYNA HATHAWAY ([id number]) [facility] ([facility]) [address] [place] [address] 62514 MCV (RBC) [Entitic vol] 96 fL Normal 80-100 [facility] Comment on above: Performed By: #### 5 7021-8 #### REYNA HATHAWAY ([id number]) [facility] ([facility]) [address] [place] [address] 12170 Monocytes (Bld) [#/Vol] 0.59 x10*3/uL Normal 0.10-1.00 [facility] Comment on above: Performed By: #### 5 7021-8 #### REYNA HATHAWAY ([id number]) [facility] ([facility]) [address] [place] [address] 91691 Monocytes/100 WBC (Bld) 7.5 % Normal 2.0-10.0 [facility] Comment on above: Performed By: #### 5 7021-8 #### REYNA HATHAWAY ([id number]) [facility] ([facility]) [address] [place] [address] 97029 Neutrophils (Bld) [#/Vol] 4.50 x10*3/uL Normal 1.20-7.70 [facility] Comment on above: Result Comment: Perc ent differential counts (%) should be interpreted in the context of the absolute cell counts (cells/uL). Performed By: #### 5 7021-8 #### REYNA HATHAWAY ([id number]) [facility] ([facility]) [address] [place] [address] 85235 Neutrophils/100 WBC (Bld) 57.4 % Normal 40.0-80.0 [facility] Comment on above: Performed By: #### 5 7021-8 #### REYNA HATHAWAY ([id number]) [facility] ([facility]) [address] [place] [address] 61783 Nucleated RBC/100 WBC (Bld) [Ratio] 0.0 /100 WBCs Normal 0.0-0.0 [facility] Comment on above: Performed By: #### 5 7021-8 #### REYNA HATHAWAY ([id number]) [facility] ([facility]) [address] [place] [address] 50845 Platelets (Bld) [#/Vol] 300 x10*3/uL Normal 150-450 [facility] Comment on above: Performed By: #### 5 7021-8 #### REYNA HATHAWAY ([id number]) [facility] ([facility]) [address] [place] [address] 97453 RBC (Bld) [#/Vol] 4.09 x10*6/uL Normal 4.00-5.20 [facility] Comment on above: Performed By: #### 5 7021-8 #### REYNA HATHAWAY ([id number]) [facility] ([facility]) [address] [place] [address] 53310 WBC (Bld) [#/Vol] 7.8 x10*3/uL Normal 4.4-11.3 [facility] Comment on above: Performed By: #### 5 7021-8 #### REYNA HATHAWAY ([id number]) [facility] ([facility]) [address] [place] [address] 34594 Comprehensive metabolic 2000 panelon 06-12-2024 Albumin BCP dye [Mass/Vol] 4.5 g/dL 3.4 - 5.0 g/dL [facility] ALP [Catalytic activity/Vol] 51 U/L 33 - 110 U/L [facility] ALT With P-5'-P [Catalytic activity/Vol] 15 U/L 7 - 45 U/L [facility] Comment on above: Patients treated wit h Sulfasalazine may generate falsely decreased results for ALT. Anion gap [Moles/Vol] 15 mmol/L 10 - 2 0 mmol/L [facility] AST With P-5'-P [Catalytic activity/Vol] 15 U/L 9 - 39 U/L [facility] Bilirubin [Mass/Vol] 0.4 mg/dL 0.0 - 1 .2 mg/dL [facility] Calcium [Mass/Vol] 9.1 mg/dL 8.6 - 10. 3 mg/dL [facility] Chloride [Moles/Vol] 106 mmol/L 98 - 10 7 mmol/L [facility] CO2 [Moles/Vol] 20 mmol/L Low 21 - 32 mmol/L [facility] Creatinine [Mass/Vol] 0.93 mg/dL 0.50 - 1.05 mg/dL [facility] GFR/1.73 sq M.predicted among non-blacks MDRD (S/P/Bld) [Vol rate/Area] 81 mL/min/{1.73_m2} - PINF [facility] Comment on above: Calculations of lilia mated GFR are performed using the 2020 CKD-EPI Study Refit equation without the race variable for the IDMS-Traceable creatinine methods. https://jasn.asnjournals.org/content//ASN.48358 76886 Glucose [Mass/Vol] 103 mg/dL High 74 - 99 mg/dL [facility] Interpretation and review of laboratory results Abnormal [facility] Potassium [Moles/Vol] 3.3 mmol/L Low 3.5 - 5.3 mmol/L [facility] Protein [Mass/Vol] 7.3 g/dL 6.4 - 8.2 g/dL [facility] Sodium [Moles/Vol] 138 mmol/L 136 - 145 mmol/L [facility] Urea nitrogen [Mass/Vol] 12 mg/dL 6 - 23 mg/dL [facility] Albumin BCP dye [Mass/Vol] 4.5 g/dL Normal 3.4-5.0 [facility] Comment on above: Performed By: #### 2 432-8 #### REYNA HATHAWAY ([id number]) [facility] ([facility]) [address] [place] [address] 15200 ALP [Catalytic activity/Vol] 51 U/L Normal 33-110 [facility] Comment on above: Performed By: #### 2 4322-8 #### REYNA HATHAWAY ([id number]) [facility] ([facility]) [address] [place] [address] 98635 ALT With P-5'-P [Catalytic activity/Vol] 15 U/L Normal 7-45 [facility] Comment on above: Result Comment: Cony ents treated with Sulfasalazine may generate falsely decreased results for ALT. Performed By: #### 2 4322-8 #### REYNA HATHAWAY ([id number]) [facility] ([facility]) [address] [place] [address] 77273 Anion gap [Moles/Vol] 15 mmol/L Normal 10-20 [facility] Comment on above: Performed By: #### 2 4322-8 #### REYNA HATHAWAY ([id number]) [facility] ([facility]) [address] [place] [address] 34236 AST With P-5'-P [Catalytic activity/Vol] 15 U/L Normal 9-39 [facility] Comment on above: Performed By: #### 2 4322-8 #### REYNA HATHAWAY ([id number]) [facility] ([facility]) [address] [place] [address] 47135 Bilirubin [Mass/Vol] 0.4 mg/dL Normal 0.0-1.2 [facility] Comment on above: Performed By: #### 2 4322-8 #### REYNA HATHAWAY ([id number]) [facility] ([facility]) [address] [place] [address] 50641 Calcium [Mass/Vol] 9.1 mg/dL Normal 8.6-10.3 [facility] Comment on above: Performed By: #### 2 4322-8 #### REYNA HATHAWAY ([id number]) [facility] ([facility]) [address] [place] [address] Chloride [Moles/Vol] 106 mmol/L Normal 98-107 [facility] Comment on above: Performed By: #### 2 432-8 #### REYNA HATHAWAY ([id number]) [facility] ([facility]) [address] [place] [address] CO2 [Moles/Vol] 20 mmol/L Low 21-32 [facility] Comment on above: Performed By: #### 2 4322-8 #### REYNA HATHAWAY ([id number]) [facility] ([facility]) [address] [place] [address] 14806 Creatinine [Mass/Vol] 0.93 mg/dL Normal 0.50-1.05 [facility] Comment on above: Performed By: #### 2 432-8 #### REYNA HATHAWAY ([id number]) [facility] ([facility]) [address] [place] [address] 20202 Glomerular filtration rate/1.73 sq M.predicted 81 mL/min/1.73m*2 Normal >60 [facility] Comment on above: Result Comment: Calc ulations of estimated GFR are performed using the 2020 CKD-EPI Study Refit equation without the race variable for the IDMS-Traceable creatinine methods. https://jasn.asnjournals.org/content//ASN.83420 38962 Performed By: #### 2 432-8 #### REYNA HATHAWAY ([id number]) [facility] ([facility]) [facility] [place] [address] Glucose [Mass/Vol] 103 mg/dL High 74-99 [facility] Comment on above: Performed By: #### 2 4323-8 #### REYNA HATHAWAY ([id number]) [facility] ([facility]) [facility] [place] [address] Potassium [Moles/Vol] 3.3 mmol/L Low 3.5-5.3 [facility] Comment on above: Performed By: #### 2 4323-8 #### REYNA HATHAWAY ([id number]) [facility] ([facility]) [address] [place] [address] 26963 Protein [Mass/Vol] 7.3 g/dL Normal 6.4-8.2 [facility] Comment on above: Performed By: #### 2 4323-8 #### REYNA HATHAWAY ([id number]) [facility] ([facility]) [address] [place] [address] 46853 Sodium [Moles/Vol] 138 mmol/L Normal 136-145 [facility] Comment on above: Performed By: #### 2 4323-8 #### REYNA HATHAWAY ([id number]) [facility] ([facility]) [address] [place] [address] 72493 Urea nitrogen [Mass/Vol] 12 mg/dL Normal 6-23 [facility] Comment on above: Performed By: #### 2 4323-8 #### REYNA HATHAAWY ([id number]) [facility] ([facility]) [address] [place] [address] 63873 D-Dimer, Quantitative VTE Ex clusionon 06-12-2024 Fibrin D-dimer FEU (PPP) [Mass/Vol] 361 NINF [facility] ECG 12-LEADon 06-12-2024 ECG 12-LEAD Ventricular Rate 89 Atrial Rate 89 P-R Interval 154 QRS Duration 78 Q-T Interval 378 QTC Calculation(Bazett) 459 P Walcott 53 R Walcott 54 T Walcott 46 QRS Count 14 Q Onset 218 [...] Patricia Hyatt ([id number]) on 06/13/2024 11:48:35 AM Normal [facility] Fibrin D-dimer FEUon 025 Fibrin D-dimer FEU (PPP) [Mass/Vol] 361 ng/mL FEU Normal <=500 [facility] Comment on above: Order Comment: The V TE Exclusion D-Dimer assay is reported in ng/mL Fibrinogen Equivalent Units (FEU). Per line clearance foreman's instructions for use, a value of less [...] assessment model for DVT or PE exclusion.) Performed By: #### 4 8065-7 #### REYNA HATHAWAY ([id number]) [facility] ([facility]) [address] [place] [address] Fibrin D-dimer FEU (PPP) [Ma ss/Vol]on 06-12-2024 Interpretation and review of laboratory results Normal [facility] The VTE Exclusion D-Dimer assay is reported in ng/mL Fibrinogen Equivalent Units (FEU). Per line clearance foreman's instructions for use, a value of less [...] assessment model for DVT or PE exclusion.) [facility] HCG ( test) IA.rapi d Ql (U)Ordered By: Torin Burnham on 06-12-2024 HCG ( test) Ql (U) Negative NEGATIVE [facility] Interpretation and review of laboratory results Normal [facility] HCG ( test) IA.rapi d Ql (U)on 06-12-2024 HCG ( test) Ql (U) Negative Normal NEGATIVE [facility] Comment on above: Performed By: #### 5 7021-8 #### REYNA HATHAWAY ([id number]) [facility] ([facility]) [address] [place], [place] [id number] Influenza virus Aon 06-13-19 FLUAV RNA ENRIQUE+probe Ql (Resp) Not detected Normal Not Detected [facility] Comment on above: Order Comment: This assay is an FDA-cleared, in vitro diagnostic nucleic acid amplification test for the qualitative detection and differentiation of SARS CoV-2/ Influenza A/B/ RSV from nasopharyngeal specimens collected from individuals with signs and symptoms of respiratory tract infections, and has been validated for use at [facility]. Negative results do not preclude COVID-19/ Influenza A/B/ RSV infections and should not be used as the sole basis for diagnosis, treatment, or other management decisions. Testing for SARS CoV-2 is recommended only for patients who meet current clinical and/or epidemiological criteria defined by federal, state, or local public health directives. Performed By: #### 9 5941-1 #### REYNA HATHAWAY ([id number]) [facility] ([facility]) [address] [place] [address] FLUBV RNA ENRIQUE+probe Ql (Resp) Not detected Normal Not Detected [facility] Comment on above: Order Comment: This assay is an FDA-cleared, in vitro diagnostic nucleic acid amplification test for the qualitative detection and differentiation of SARS CoV-2/ Influenza A/B/ RSV from nasopharyngeal specimens collected from individuals with signs and symptoms of respiratory tract infections, and has been validated for use at [facility]. Negative results do not preclude COVID-19/ Influenza A/B/ RSV infections and should not be used as the sole basis for diagnosis, treatment, or other management decisions. Testing for SARS CoV-2 is recommended only for patients who meet current clinical and/or epidemiological criteria defined by federal, state, or local public health directives. Performed By: #### 9 5941-1 #### REYNA HATHAWAY ([id number]) [facility] ([facility]) [facility] [place] [address] RSV RNA ENRIQUE+probe Ql (Resp) Not detected Normal Not Detected [facility] Comment on above: Order Comment: This assay is an FDA-cleared, in vitro diagnostic nucleic acid amplification test for the qualitative detection and differentiation of SARS CoV-2/ Influenza A/B/ RSV from nasopharyngeal specimens collected from individuals with signs and symptoms of respiratory tract infections, and has been validated for use at [facility]. Negative results do not preclude COVID-19/ Influenza A/B/ RSV infections and should not be used as the sole basis for diagnosis, treatment, or other management decisions. Testing for SARS CoV-2 is recommended only for patients who meet current clinical and/or epidemiological criteria defined by federal, state, or local public health directives. Performed By: #### 9 5941-1 #### REYNA HATHAWAY ([id number]) [facility] ([facility]) [address] [place] [address] SARS-CoV-2 (COVID-19) RNA ENRIQUE+probe Ql (Resp) Not detected Normal Not Detected [facility] Comment on above: Order Comment: This assay is an FDA-cleared, in vitro diagnostic nucleic acid amplification test for the qualitative detection and differentiation of SARS CoV-2/ Influenza A/B/ RSV from nasopharyngeal specimens collected from individuals with signs and symptoms of respiratory tract infections, and has been validated for use at [facility]. Negative results do not preclude COVID-19/ Influenza A/B/ RSV infections and should not be used as the sole basis for diagnosis, treatment, or other management decisions. Testing for SARS CoV-2 is recommended only for patients who meet current clinical and/or epidemiological criteria defined by federal, state, or local public health directives. Performed By: #### 9 5941-1 #### REYNA HATHAWAY ([id number]) [facility] ([facility]) [address] [place] [address] Magnesiumon 06-12-2024 Magnesium [Mass/Vol] 2.04 mg/dL 1.60 - 2.40 mg/dL [facility] Magnesium [Mass/Vol] 2.04 mg/dL Normal 1.60-2.40 [facility] Comment on above: Performed By: #### 1 9123-9 #### REYNA HATHAWAY ([id number]) [facility] ([facility]) [address] [place] [address] Magnesium [Mass/Vol]on 06-12 Interpretation and review of laboratory results Normal [facility] No Panel Informationon 06-12 [facility] Sars-CoV-2, Influenza A/B an d RSV PCRon 06-12-2024 FLUAV RNA ENRIQUE+probe Ql (Resp) Not detected Not Detected [facility] FLUBV RNA ENRIQUE+probe Ql (Resp) Not detected Not Detected [facility] Interpretation and review of laboratory results Normal [facility] RSV RNA ENRIQUE+probe Ql (Resp) Not detected Not Detected [facility] SARS-CoV-2 (COVID-19) RNA ENRIQUE+probe Ql (Resp) Not detected Not Detected [facility] This assay is an FDA-cleared, in vitro diagnostic nucleic acid amplification test for the qualitative detection and differentiation of SARS CoV-2/ Influenza A/B/ RSV from nasopharyngeal specimens collected from individuals with signs and symptoms of respiratory tract infections, and has been validated for use at [facility]. Negative results do not preclude COVID-19/ Influenza A/B/ RSV infections and should not be used as the sole basis for diagnosis, treatment, or other management decisions. Testing for SARS CoV-2 is recommended only for patients who meet current clinical and/or epidemiological criteria defined by federal, state, or local public health directives. [facility] TSH WITH REFLEX TO FREE T4 I F ABNORMALon 06-12-2024 TSH Qn 1.99 m[IU]/L Normal 0.44-3.98 [facility] Comment on above: Order Comment: TSH t esting is performed using different testing methodology at [facility] Direct result comparisons should only be made within the same method. Performed By: #### T ADA #### ORELLANA RIVAS ([id number]) [facility] ([facility]) [address] [place] [address] TSH with reflex to Free T4 i f abnormalon 06-12-2024 Interpretation and review of laboratory results Normal [facility] TSH Qn 1.99 m[IU]/L [facility] TSH testing is performed using different testing methodology at [facility] than [facility]. Direct result comparisons should only be made within the same method. [facility] Tropinin I.cardiac panel Hig h sensitivity methodon 06-12-2024 Interpretation and review of laboratory results Normal [facility] Less than 99th percentile of normal range cutoff- Female and [...] performed using a different testing methodology at [facility] than [facility]. Direct result comparisons should only be made within the same method. [facility] Interpretation and review of laboratory results Normal [facility] Less than 99th percentile of normal range cutoff- Female and [...] performed using a different testing methodology at [facility] than at [facility]. Direct result comparisons should only be made within the same method. [facility] Troponin I, High Sensitivity , Initialon 06-12-2024 Tropinin I.cardiac panel High sensitivity method ng/L 0 - 13 ng/L [facility] Troponin I.cardiac panelon 0 06-12-2024 Tropinin I.cardiac panel High sensitivity method <3 Normal 0-13 [facility] Comment on above: Order Comment: Less than 99th percentile of normal range cutoff- Female and [...] performed using a different testing methodology at [facility] than at [facility]. Direct result comparisons should only be made within the same method. Performed By: #### 8 9577-1 #### REYNA HATHAWAY ([id number]) [facility] ([facility]) [address] [place], [place] [id number] Tropinin I.cardiac panel High sensitivity method <3 Normal 0-13 [facility] Comment on above: Order Comment: Less than 99th percentile of normal range cutoff- Female and [...] performed using a different testing methodology at [facility]. Direct result comparisons should only be made within the same method. Performed By: #### 8 9577-1 #### REYNA HATHAWAY ([id number]) [facility] ([facility]) [address] [place] [address] Troponin, High Sensitivity, 1 Houron 06-12-2024 Tropinin I.cardiac panel High sensitivity method ng/L 0 - 13 ng/L [facility] Urinalysis complete W Reflex Culture panel (U)on 06-12-2024 Appearance (U) Clear Clear [facility] Work Phone: Bilirubin (U) [Mass/Vol] Negative NEGATIVE mg/dL [facility] Work Phone: Color (U) Colorless Abnormal Light-Yellow , Yellow, Dark-Yellow [facility] Work Phone: Glucose Auto test strip (U) [Mass/Vol] Normal Normal mg/dL [facility] Work Phone: Interpretation and review of laboratory results Abnormal [facility] Work Phone: Ketones (U) [Mass/Vol] 10 (1+) Abnormal NEGAT ASHISH mg/dL [facility] Work Phone: Leukocyte esterase Auto test strip Ql (U) Negative NEGATIVE [facility] Work Phone: Nitrite Auto test strip Ql (U) Negative NEGATIVE [facility] Work Phone: pH (U) 7 [pH] 5.0, 5.5, 6.0, 6.5, 7.0, 7.5, 8.0 [facility] Work Phone: Protein (U) [Mass/Vol] Negative NEGAT ASHISH, 10 (TRACE), 20 (TRACE) mg/dL [facility] Work Phone: RBC (U) [#/Vol] 0.2 (2+) Abnormal NEGATIVE mg/dL [facility] Work Phone: Specific gravity (U) [Rel density] 1.006 1.005 - 1.035 [facility] Work Phone: Urobilinogen (U) [Mass/Vol] Normal Normal mg/dL [facility] Work Phone: [facility] Work Phone: Bacteria Auto (Urine sed) [#/Area] 1+ Abnormal NONE SEEN /HPF [facility] Work Phone: Epithelial cells.squamous Auto (Urine sed) [#/Area] NONE Reference range not established. /HPF [facility] Work Phone: Interpretation and review of laboratory results Abnormal [facility] Work Phone: RBC Auto (Urine sed) [#/Area] 3-5 NONE, 1-2, 3-5 /HPF [facility] Work Phone: WBC Auto (Urine sed) [#/Area] NONE 1-5, NONE /HPF [facility] Work Phone: [facility] Work Phone: Appearance (U) Clear Normal Clear [facility] Comment on above: Performed By: #### 5 7021-8 #### REYNA HATHAWAY ([id number]) [facility] ([facility]) [address] [place] [address] Bacteria Auto (Urine sed) [#/Area] 1+ /HPF Abnormal NONE SEEN [facility] Comment on above: Performed By: #### 5 8077-9 #### REYNA HATHAWAY ([id number]) [facility] ([facility]) [address] [place] [address] Bilirubin (U) [Mass/Vol] Negative Normal NEGATIVE [facility] Comment on above: Performed By: #### 5 7021-8 #### REYNA HATHAWAY ([id number]) [facility] ([facility]) [address] [place] [address] Color (U) Colorless Normal Light-Yellow , Yellow, Dark-Yellow [facility] Comment on above: Performed By: #### 5 7021-8 #### REYNA HATHAWAY ([id number]) [facility] ([facility]) [address] [place] [address] Epithelial cells.squamous Auto (Urine sed) [#/Area] NONE Normal Reference range not established. [facility] Comment on above: Performed By: #### 5 8077-9 #### REYNA HATHAWAY ([id number]) [facility] ([facility]) [address] [place] [address] Glucose Auto test strip (U) [Mass/Vol] Normal Normal Normal [facility] Comment on above: Performed By: #### 5 7021-8 #### REYNA HATHAWAY ([id number]) [facility] ([facility]) [address] [place] [address] Ketones (U) [Mass/Vol] 10 (1+) Abnormal NEGATIVE [facility] on above: Performed By: #### 5 7021-8 #### REYNA HATHAWAY ([id number]) [facility] ([facility]) [address] [place] [address] Leukocyte esterase Auto test strip Ql (U) Negative Normal NEGATIVE [facility] Comment on above: Performed By: #### 5 7021-8 #### REYNA HATHAWAY ([id number]) [facility] ([facility]) [address] [place] [address] Nitrite Auto test strip Ql (U) Negative Normal NEGATIVE [facility] Comment on above: Performed By: #### 5 7021-8 #### REYNA HATHAWAY ([id number]) [facility] ([facility]) [address] [place] [address] pH (U) 7.0 [pH] Normal 5.0, 5.5, 6.0, 6.5, 7.0, 7.5, 8.0 [facility] Comment on above: Performed By: #### 5 7021-8 #### REYNA HATHAWAY ([id number]) [facility] ([facility]) [address] [place] [address] Protein (U) [Mass/Vol] Negative Normal NEGAT ASHISH, 10 (TRACE), 20 (TRACE) [facility] Comment on above: Performed By: #### 5 7021-8 #### REYNA HATHAWAY ([id number]) [facility] ([facility]) [address] [place] [address] RBC (U) [#/Vol] 0.2 (2+) Abnormal NEGATIVE [facility] Comment on above: Performed By: #### 5 7021-8 #### REYNA HATHAWAY ([id number]) [facility] ([facility]) [address] [place] [address] RBC Auto (Urine sed) [#/Area] 3-5 Normal NONE, 1-2, 3-5 [facility] Comment on above: Performed By: #### 5 8077-9 #### REYNA HATHAWAY ([id number]) [facility] ([facility]) [address] [place] [address] Specific gravity (U) [Rel density] 1.006 Normal 1.005-1.035 [facility] Comment on above: Performed By: #### 5 7021-8 #### REYNA HATHAWAY ([id number]) [facility] ([facility]) [address] [place], [place] [id number] Urobilinogen (U) [Mass/Vol] Normal Normal Normal [facility] Comment on above: Performed By: #### 5 7021-8 #### REYNA HATHAWAY ([id number]) [facility] ([facility]) [address] [place] [address] WBC Auto (Urine sed) [#/Area] NONE Normal 1-5, NONE [facility] Comment on above: Performed By: #### 5 8077-9 #### REYNA HATHAWAY ([id number]) [facility] ([facility]) [address] [place] [address] XR CHEST 2 VIEWSon XR CHEST 2 VIEWS STUDY: Chest Radiographs; 06/12/2024 06:23PM INDICATION: Chest pain. COMPARISON: XR Chest 09/27/2021 ACCESSION NUMBER(S): [id number] ORDERING CLINICIAN: PATRICIA Cross BILDERBACK TECHNIQUE: Frontal and lateral chest. FINDINGS: Lungs are clear. No pleural effusion. No pneumothorax. Heart size normal. Mild thoracic dextroscoliotic curvature. No acute bony abnormality identified. IMPRESSION: Impression: No findings of an acute cardiopulmonary process. Signed by Juan Antonio Nice MD [facility] XR Chest 2 Viewson Impression: No findings of an acute cardiopulmonary process. Signed by Juan Antonio Nice MD TELERADIOLOGY STUDY: Chest Radiographs; 06/12/2024 06:23PM INDICATION: Chest pain. COMPARISON: XR Chest 09/27/2021 ACCESSION NUMBER(S): [id number] ORDERING CLINICIAN: PATRICIA Cross BILDERBACK TECHNIQUE: Frontal and lateral chest. FINDINGS: Lungs are clear. No pleural effusion. No pneumothorax. Heart size normal. Mild thoracic dextroscoliotic curvature. No acute bony abnormality identified. TELERADIOLOGY Juan Antonio Nice M D - 06/12/2024 STUDY: Chest Radiographs; 06/12/2024 06:23PM INDICATION: Chest pain. COMPARISON: XR Chest 09/27/2021 ACCESSION NUMBER(S): [id number] ORDERING CLINICIAN: PATRICIA HYATT TECHNIQUE: Frontal and lateral chest. FINDINGS: Lungs are clear. No pleural effusion. No pneumothorax. Heart size normal. Mild thoracic dextroscoliotic curvature. No acute bony abnormality identified. IMPRESSION: Impression: No findings of an acute cardiopulmonary process. Signed by Juan Antonio Nice MD [facility] Work Phone: Radiology Study observation (narrative) [facility] Work Phone: XR Chest 2 ViewsOrdered By: Juan Antonio Nice on 06-12-2024 [facility] Work Phone: PROLACTIN 4465on 06-05-2024 PROLACTIN 23.8 ng/mL Normal 4.8-33.4 [facility] Comment on above: Result Comment: Perf ormed at: - [facility] [address] [id number] [employer] Captain: Marc Melton PhD, Phone: [phone] Performed By: #### L 8928.5405 ####[facility] [address] [place], [address] Absolute lymphocyte countOrd ered By: Rea Nuñez on 06-04-2024 Lymphocytes Auto (Unsp spec) [#/Vol] 1.91 10*3/uL 0.83-4.51 [facility] Absolute neutrophil countOrd ered By: Rea Nuñez on 06-04-2024 Neutrophils (Bld) [#/Vol] 2.7 10*3/uL 2.0-7.7 [facility] Anion gap in Serum or Plasma Ordered By: Rea Nuñez on 06-04-2024 Anion gap [Moles/Vol] 11 mmol/L 5-15 [facility] Automated lymphocyte count a s percentage of total leukocytesOrdered By: Rea Nuñez on 06-04-2024 Lymphocytes/100 WBC Auto (Unsp spec) 34.9 % 19- [facility] BUN/creatinine ratioOrdered By: Reatigist Nuñez on 06-04-2024 Urea nitrogen/Creatinine [Mass ratio] 14.8 mg/mg 10-20 [facility] Basophil percentageOrdered B y: Rea Nuñez on 06-04-2024 Basophils/100 WBC (Bld) 1.1 % High 0-1 [facility] Bilirubin, totalOrdered By: Reatigist Nuñez on 06-04-2024 Bilirubin [Mass/Vol] 0.27 mg/dL 0.00-1.30 [facility] CBC W/Diff, Automatedon 05-19 Absolute Lymph 1.91 X10 3/uL Normal 0.83-4.51 [facility] Comment on above: Performed By: #### L 100.0100, L500.4050 #### [facility] [address] [place], [address] Absolute Neut 2.7 X10 3/uL Normal 2.0-7.7 [facility] Comment on above: Performed By: #### L 100.0100, L500.4050 #### [facility] [address] [place], [address] Basophils/100 WBC (Bld) 1.1 % High 0-1 [facility] Comment on above: Performed By: #### L 100.0100, L500.4050 #### [facility] [address] [place], [address] Eosinophils/100 WBC (Bld) 3.3 % Normal 0-5 [facility] Comment on above: Performed By: #### L 100.0100, L500.4050 #### [facility] [address] [place], [address] Erythrocyte distribution width (RBC) [Ratio] 12.9 % Normal 11.6-14.6 [facility] Comment on above: Performed By: #### L 100.0100, L500.4050 #### [facility] [address] [place], [address] Hematocrit (Bld) [Volume fraction] 38.0 % Normal 37-47 [facility] Comment on above: Performed By: #### L 100.0100, L500.4050 #### [facility] [address] [place], [address] Hemoglobin (Bld) [Mass/Vol] 12.7 g/dL Normal 12.0-15.0 [facility] Comment on above: Performed By: #### L 100.0100, L500.4050 #### [facility] [address] [place], [address] IG% 0.200 Normal 0.0-0.9 [facility] Comment on above: Result Comment: IG% - Immature Granulocytes (promyelocytes, myelocytes and metamyelocytes) > 1% indicates that a LEFT SHIFT is Present. Performed By: #### L 100.0100, L500.4050 #### [facility] [address] [place], [address] Lymphocytes/100 WBC (Bld) 34.9 % Normal 19-41 [facility] Comment on above: Performed By: #### L 100.0100, L500.4050 #### [facility] [address] [place], [address] MCH (RBC) [Entitic mass] 31.8 pg Normal 27.0-32.0 [facility] Comment on above: Performed By: #### L 100.0100, L500.4050 #### [facility] [address] [place], [address] MCHC (RBC) [Mass/Vol] 33.4 g/dL Normal 32-36 [facility] Comment on above: Performed By: #### L 100.0100, L500.4050 #### [facility] [address] [place], [address] MCV (RBC) [Entitic vol] 95.2 fL Normal 81-99 [facility] Comment on above: Performed By: #### L 100.0100, L500.4050 #### [facility] [address] [place], [address] Monocytes/100 WBC (Bld) 11.7 % High 0-10 [facility] Comment on above: Performed By: #### L 100.0100, L500.4050 #### [facility] [address] [place], [address] Neutrophils/100 WBC (Bld) 48.8 % Normal 47-70 [facility] Comment on above: Performed By: #### L 100.0100, L500.4050 #### [facility] [address] [place], [address] Nucleated RBC (Bld) [#/Vol] 0 10*3/uL Normal 0-5 [facility] Comment on above: Performed By: #### L 100.0100, L500.4050 #### [facility] [address] [place], [address] Platelet mean volume (Bld) [Entitic vol] 11.5 fL Normal 6.2-12.0 [facility] Comment on above: Performed By: #### L 100.0100, L500.4050 #### [facility] [address] [place], [address] Platelets (Bld) [#/Vol] 235 10*3/uL Normal 150-450 [facility] Comment on above: Performed By: #### L 100.0100, L500.4050 #### [facility] [address] [place], [address] RBC (Bld) [#/Vol] 3.99 10*6/uL Low 4.2-5.4 [facility] Comment on above: Performed By: #### L 100.0100, L500.4050 #### [facility] [address] [place], [address] RDW SD 45.4 fl High 35.1-43.9 [facility] Comment on above: Performed By: #### L 100.0100, L500.4050 #### [facility] [address] [place], [address] WBC (Bld) [#/Vol] 5.5 10*3/uL Normal 4.4-11.0 [place] Comment on above: Performed By: #### L 100.0100, L500.4050 #### [facility] [address] [place], [address] Carbon dioxide, total [Moles /volume] in Central venous bloodOrdered By: Rea Nuñez on 06-04-2024 CO2 [Moles/Vol] 20.0 mmol/L Low 21.0-32.0 [facility] Chloride assayOrdered By: Lloyd Nuñez on 06-04-2024 Chloride [Moles/Vol] 105 mmol/L 98-108 [facility] Comprehensive Metabolic Prof ilon 06-04-2024 Albumin/Globulin [Mass ratio] 1.5 {ratio} Normal 0.9-2.4 [facility] Comment on above: Performed By: #### L 100.0100, L500.4050 #### [facility] [address] [place], [address] ALK PHOS 51 U/L Normal 35-104 [facility] Comment on above: Performed By: #### L 100.0100, L500.4050 #### [facility] [address] [place], [address] ALT [Catalytic activity/Vol] 19 U/L Normal <=34 [facility] Comment on above: Performed By: #### L 100.0100, L500.4050 #### [facility] [address] [place], [address] AST [Catalytic activity/Vol] 21 U/L Normal <=31 [facility] Comment on above: Performed By: #### L 100.0100, L500.4050 #### [facility] [address] [place], [address] Bilirubin [Mass/Vol] 0.27 mg/dL Normal 0.00-1.30 [facility] Comment on above: Performed By: #### L 100.0100, L500.4050 #### [facility] [address] [place], [address] Calcium [Mass/Vol] 9.3 mg/dL Normal 7.6-11.0 [place] Comment on above: Performed By: #### L 100.0100, L500.4050 #### [facility] [address] [place], [address] Chloride [Moles/Vol] 105 mmol/L Normal 98-108 [facility] Comment on above: Performed By: #### L 100.0100, L500.4050 #### [facility] [address] [place], [address] CO2 [Moles/Vol] 20.0 mmol/L Low 21.0-32.0 [facility] Comment on above: Performed By: #### L 100.0100, L500.4050 #### [facility] [address] [place], [address] GAP 11 Normal 5-15 [facility] Comment on above: Performed By: #### L 100.0100, L500.4050 #### [facility] [address] [place], [address] Potassium [Moles/Vol] 4.1 mmol/L Normal 3.3-5.1 [facility] Comment on above: Performed By: #### L 100.0100, L500.4050 #### [facility] [address] [place], [address] Sodium [Moles/Vol] 136 mmol/L Normal 133-145 [place] Comment on above: Performed By: #### L 100.0100, L500.4050 #### [facility] [address] [place], [address] Albumin [Mass/Vol] 4.2 g/dL Normal 3.5-5.0 [place] Comment on above: Performed By: #### L 100.0100, L500.4050 #### [facility] [address] [place], [address] BUN/CRE 14.8 RATIO Normal 10-20 [facility] Comment on above: Performed By: #### L 100.0100, L500.4050 #### [facility] [address] [place], [address] Creatinine [Mass/Vol] 0.85 mg/dL Normal 0.70-1.20 [facility] Comment on above: Performed By: #### L 100.0100, L500.4050 #### [facility] Laboratory [address] [place], [address] GFR/1.73 sq M.predicted among non-blacks MDRD (S/P/Bld) [Vol rate/Area] 90 mL/min/{1.73_m2} Normal >60 [facility] Comment on above: Result Comment: mL/m in/1.73m2 CKD-EPI Creatinine Equation (2020) Performed By: #### L 100.0100, L500.4050 #### [facility] [address] [place], [address] Globulin (S) [Mass/Vol] 2.9 g/dL Normal 2.2-4.2 [facility] Comment on above: Performed By: #### L 100.0100, L500.4050 #### [facility] [address] [place], [address] Glucose [Mass/Vol] 105 mg/dL High 70-99 [place] Comment on above: Performed By: #### L 100.0100, L500.4050 #### [facility] [address] [place], [address] T PROT 7.1 g/dL Normal 5.9-8.4 [facility] Comment on above: Performed By: #### L 100.0100, L500.4050 #### [facility] [address] [place], [address] Urea nitrogen [Mass/Vol] 13 mg/dL Normal 4-19 [facility] Comment on above: Performed By: #### L 100.0100, L500.4050 #### [facility] [address] [place], [address] Eosinophil percentageOrdered By: Rea Nuñez on 06-04-2024 Eosinophils/100 WBC (Bld) 3.3 % 0-5 [facility] Erythrocyte distribution wid th ratioOrdered By: Rea Nuñez on 06-04-2024 Erythrocyte distribution width (RBC) [Ratio] 12.9 % 11.6-14.6 [facility] Erythrocyte distribution wid th standard deviationOrdered By: Rea Nuñez on 06-04-2024 Erythrocyte distribution width (RBC) [Entitic vol] 45.4 fL High 35.1-43.9 [facility] Erythrocyte distribution width (RBC) [Ratio] 45.4 fl High 35.1-43.9 [facility] GFR/1.73 sq M.predicted amy g non-blacks MDRD (S/P/Bld) [Vol rate/Area]Ordered By: Rea Nuñez on 06-04-2024 Estimated GFR (MDRD) Non-Af Amer 90 >60 [facility] Comment on above: mL/min/1.73m2 CKD-EP I Creatinine Equation (2020) Glomerular filtration rate ( GFR) estimation/1.73 sq m using serum, plasma, or whole bOrdered By: Rea Nuñez on 06-04-2024 GFR/1.73 sq M.predicted among non-blacks MDRD (S/P/Bld) [Vol rate/Area] 90 mL/min/{1.73_m2} >60 [facility] Comment on above: mL/min/1.73m2 CKD-EP I Creatinine Equation (2020) Hematocrit Auto (Bld) [Volum e fraction]Ordered By: Rea Nuñez on 06-04-2024 Hematocrit (Bld) [Volume fraction] 38.0 % 37-47 [facility] Hemoglobin measurementOrdere d By: Rea Nuñez on 06-04-2024 Hemoglobin (Bld) [Mass/Vol] 12.7 g/dL 12.0-15.0 [facility] Immature granulocytes/100 WB C Auto (Bld)Ordered By: Rea Nuñez on 06-04-2024 Immature granulocytes/100 WBC (Bld) 0.200 % 0.0-0.9 [facility] Comment on above: IG% - Immature Granu locytes (promyelocytes, myelocytes and metamyelocytes) > 1% indicates that a LEFT SHIFT is Present. Laboratory - Chemistry and C hemistry - challengeOrdered By: Rea Nuñez on 06-04-2024 AST [Catalytic activity/Vol] 21 U/L <32 [facility] Lymphocytes Auto (Unsp spec) [#/Vol]Ordered By: Rea Nuñez on 06-04-2024 Lymphocytes (Bld) [#/Vol] 1.91 10*3/uL 0.83-4.51 [facility] Lymphocytes/100 WBC Auto (Un sp spec)Ordered By: Rea Nuñez on 06-04-2024 Lymphocytes/100 WBC (Bld) 34.9 % 19-41 [facility] MCV (mean corpuscular volume ) determinationOrdered By: Rea Nuñez on 06-04-2024 MCV (RBC) [Entitic vol] 95.2 fL 81-99 [facility] Mean corpuscular hemoglobin (MCH) determinationOrdered By: Rea Nuñez on 06-04-2024 MCH (RBC) [Entitic mass] 31.8 pg 27.0-32.0 [facility] Mean corpuscular hemoglobin concentration (MCHC) determinationOrdered By: Rea Nuñez on 06-04-2024 MCHC (RBC) [Mass/Vol] 33.4 g/dL 32-36 [facility] Mean platelet volume determi nationOrdered By: Rea Nuñez on 06-04-2024 Platelet mean volume (Bld) [Entitic vol] 11.5 fL 6.2-12.0 [facility] Monocyte percentageOrdered B y: Rea Nuñez on 06-04-2024 Monocytes/100 WBC (Bld) 11.7 % High 0-10 [facility] Neutrophil percentageOrdered By: Rea Nuñez on 06-04-2024 Neutrophils/100 WBC (Bld) 48.8 % 47-70 [facility] Nucleated red blood cell per centageOrdered By: Rea Nuñez on 06-04-2024 Nucleated RBC/100 WBC (Bld) [Ratio] 0 % 0-5 [facility] Platelet countOrdered By: Lloyd Nuñez on 06-04-2024 Platelets (Bld) [#/Vol] 235 10*3/uL 150-450 [facility] Potassium (Unsp spec) [Mass/ Vol]Ordered By: Rea Nuñez on 06-04-2024 Potassium [Moles/Vol] 4.1 mmol/L 3.3-5.1 [facility] Potassium measurement (mass/ volume)Ordered By: Rea Nuñez on 06-04-2024 Potassium (Unsp spec) [Mass/Vol] 4.1 mmol/L 3.3-5.1 [facility] Prolactin [Mass/Vol]Ordered By: Priscilla Khan on 06-04-2024 Prolactin 23.8 ng/mL 4.8-33.4 [facility] Comment on above: Performed at: [address] [id number] Director: Marc Melton PhD, Phone: [phone] RBC Auto (Bld) [#/Vol]Ordere d By: Rea Nuñez on 06-04-2024 RBC (Bld) [#/Vol] 3.99 10*6/uL Low 4.2-5.4 [facility] Serum creatinine measurement (mass/volume)Ordered By: Rea Nuñez on 06-04-2024 Creatinine [Mass/Vol] 0.85 mg/dL 0.70-1.20 [facility] Serum globulin measurementOr dered By: Rea Nuñez on 06-04-2024 Globulin (S) [Mass/Vol] 2.9 g/dL 2.2-4.2 [facility] Serum glucose measurement (m ass/volume)Ordered By: Rea Nuñez on 06-04-2024 Glucose [Mass/Vol] 105 mg/dL High 70-99 [place] Serum or plasma alanine mccullough otransferase (ALT) measurementOrdered By: Rea Nuñez on 06-04-2024 ALT [Catalytic activity/Vol] 19 U/L <35 [facility] Serum or plasma albumin beatriz urement (mass/volume)Ordered By: Rea Nuñez on 06-04-2024 Albumin [Mass/Vol] 4.2 g/dL 3.5-5.0 [place] Serum or plasma albumin/glob ulin mass ratioOrdered By: Rea Nuñez on 06-04-2024 Albumin/Globulin [Mass ratio] 1.5 {ratio} 0.9-2.4 [facility] Serum or plasma alkaline rajesh sphatase measurementOrdered By: Rea Nuñez on 06-04-2024 ALP [Catalytic activity/Vol] 51 U/L 35-104 [facility] Serum or plasma calcium beatriz urement (mass/volume)Ordered By: Rea Nuñez on 06-04-2024 Calcium [Mass/Vol] 9.3 mg/dL 7.6-11.0 [place] Serum or plasma prolactin me asurement (mass/volume)Ordered By: Priscilla Khan on 06-04-2024 Prolactin [Mass/Vol] 23.8 ng/mL 4.8-33.4 [facility] Comment on above: Performed at: [facility] [id number] [place], [place] [id number] Director: Marc Melton PhD, Phone: [phone] Serum or plasma urea nitroge n measurement (mass/volume)Ordered By: Rea Nuñez on 06-04-2024 Urea nitrogen [Mass/Vol] 13 mg/dL 4-19 [facility] Sodium levelOrdered By: Emre Nuñez on 06-04-2024 Sodium [Moles/Vol] 136 mmol/L 133-145 [place] Total proteinOrdered By: Mer Nuñez on 06-04-2024 Protein [Mass/Vol] 7.1 g/dL 5.9-8.4 [place] White blood cell (WBC) count Ordered By: Rea Nuñez on 06-04-2024 WBC (Bld) [#/Vol] 5.5 10*3/uL 4.4-11.0 [place] Breast Limited Unilateralon 04-30-2024 Breast Limited Unilateral [facility] Imaging Services [address] [place] [id number] Breast Limited Unilateral MR#: [id number] Acct: [id number] Name: DALLAS FARIAS Rep #: [id number] : 1985 F 39 From: Marin queen MD PCP: WANG Najera Status: REG CLI Study: Breast Limited Unilateral Date of Exam: Exam# [id number] Ordering Dr: Priscilla Khan CNM PROCEDURE: BREAST LIMITED UNILATERAL REASON FOR EXAM: Right breast lumps. TECHNIQUE: Targeted bilateral breast ultrasound. COMPARISON: Comparison is made with prior mammogram dated April 30, 2024. FINDINGS: RIGHT: Right breast ultrasound was targeted to the mid medial and lateral aspects of the breast.. The breast tissue appears sonographically normal. There is a 3 mm x 3 mm x 3 mm cyst at the 9 o'clock position of the breast at 2 cm from the nipple. A similar-appearing cyst measuring 7 mm x 6 mm x 4 mm is seen at the 4 o'clock position of the breast at 2 cm from the nipple. Several tiny cysts are also seen in the 9 o'clock region. Dilated ducts. US/Breast Limited Unilateral IMPRESSION: Small cysts are seen as described. Follow-up code: Routine Follow-up Reading Location: [id number] CC: [place] Khan; WANG Moreno Billposter: Signed Normal [facility] DIAG MAMM W/CAD, BILATon DIAG MAMM W/CAD, BILAT [facility] Imaging Services [address] [place] [address] DIAG MAMM W/CAD, BILAT MR#: [id number] Acct: [id number] Name: DALLAS FARIAS Rep #: [id number] : 1985 F 39 From: Marin queen MD PCP: WANG Najera Status: REG CLI Study: DIAG MAMM W/CAD, BILAT Date of Exam: 04/30/24 Exam# [id number] Ordering Dr: Priscilla Khan CNM PROCEDURE: DIAG MAMM W/CAD, BILAT REASON FOR EXAM: Right breast lump. TECHNIQUE: Bilateral diagnostic digital breast tomosynthesis with 2D and 3D images. Computer aided detection. COMPARISON: None. FINDINGS: The breasts are extremely dense which lowers the sensitivity of mammography. No mass lesion is seen. Correlation with ultrasound is recommended. BI/DIAG MAMM W/CAD, BILAT IMPRESSION: BI-RADS 0: INCOMPLETE - NEED ADDITIONAL IMAGING EVALUATION. Follow-up code: Ultrasound Recommended Reading Location: [facility] CC: [place] Khan; WANG Moreno Billposter: Signed Normal [facility] New Car Sales Manager Office Visit Reporton 04-27-2024 New Car Sales Manager Office Visit Report [facility] [address], [address] [place] [address] OFFICE VISIT Date of Service: 04/27/24 MR#: [id number] Acct: [id number] Name: DALLAS FARIAS Rep #: [id number] : 1985 Provider: [place] yun Age/Sex: 39/F Location[facility] Status: Signed Intake Vital Signs 01/13/24 13:55 04/27/24 08:45 04/27/24 15:34 Height 5 ft 4 in 5 ft 4 in 5 ft 4 in Weight: 184 lb 186 lb BMI 31.6 31.9 BP 133/76 H Blood Pressure Location Rt brachial Position Sitting Respiration 18 Intake Visit Reasons: Right breast lump Buzzle Buffer Required: No Is patient in pain?: No Allergies gluten Allergy (Verified 04/27/24 15:28) Abd cramps/diarrhea Medications ???Medication ???Instructions ???Recorded ???Confirmed ???Type apple cider vinegar 300 mg tablet 300 mg PO DAILY 07/12/22 04/27/24 History cholecalciferol (vitamin D3) 25 25 mcg PO DAILY 07/12/22 04/27/24 History mcg (1,000 unit) capsule folic acid 1 mg tablet 1 mg PO DAILY 07/12/22 04/27/24 Hi story levothyroxine 25 mcg tablet 25 mcg PO QODAY 07/12/22 04/27/24 History vitamin B complex (B 1 tab PO DAILY 07/12/22 04/27/24 H istory Complex-Vitamin B12 tablet) melatonin 3 mg capsule 3 mg PO HS PRN sleep 10/13/2210/12 History ondansetron 4 mg disintegrating 4 mg PO Q8H PRN PRN Nausea #14 tab s 08/14/23 04/27/24 Rx tablet Is last menstrual period known: Yes Last Menstrual Period: 04/14/24 Post menopausal: No Patient : No : No Control Method: none PFSH Medical History Wears glasses Alcohol use History of steroid therapy Thyroid disease Anemia Easy bruising Migraine headache Dietary restriction History of IBS Heartburn Gastric reflux Shortness of breath on exertion Former smoker History of echocardiogram Cardiology follow-up encounter Allergic dermatitis Depression IBS (irritable bowel syndrome) Weight gain PVC's (premature ventricular contractions) Palpitations Polyarthralgia Hypothyroidism History of prolactinoma Surgical History H/O section Family History Mother Hearing loss Grandmother Diabetes Colon cancer PVC (premature ventricular contraction) Grandfather Diabetes Crohn's disease Heart disease Grandmother Alzheimers disease Social History current occupation: [employer] Smoking Status: Former smoker how long ago did patient quit smokin alcohol intake: current substance use type: does not use caffeine: No frequency: daily HPI Right breast lump Details: DALLAS FARIAS is a 39 year old who presents for breast tenderness and palpable lump she found this morning. pain is intermittent. denies tenting, dimpling or nipple discharge. has hx of prolactemia. Female Reproductive History Last Menstrual Period: 04/14/24 Exam Const General: cooperative and healthy appearing Chest Chest palpation inspection: normal inspection of the chest Breast palpation: abnormal palpation of the breast (right 10 o clock 1cm from nipple line 2cm mobile mass diagonally. ) Skin General: no rashes or lesions noted Coding Level of Care Code Off vis,est,level 3 Diagnoses Breast mass in female N63.0 Assessment and Plan Assessment and Plan (1) Breast mass in female: Status: Acute Comment: diagnostic mammogram and ultrasound right breast prolactin levels Orders: Orders DIAG MAMM W/CAD, BILAT Today N63.0 - Unspecified lump in unspecified breast, Z12.31 - Encounter for screening mammogram for malignant neoplasm of breast Breast Limited Unilateral Today N63.0 - Unspecified lump in unspecified breast PROLACTIN Today N63.0 - Unspecified lump in unspecified breast 04/27/24 1620 Date Priscilla Car Signature: Date (if applicable) CC: Normal [facility] Absolute lymphocyte countOrd ered By: Rea Nuñez on 04-13-2024 Lymphocytes Auto (Unsp spec) [#/Vol] 2.77 10*3/uL 0.83-4.51 [facility] Absolute neutrophil countOrd ered By: Rea Joaquin on 04-13-2024 Neutrophils (Bld) [#/Vol] 4.5 10*3/uL 2.0-7.7 [facility] Albumin to globulin ratioOrd ered By: Reatigist Nuñez on 04-13-2024 Albumin/Globulin [Mass ratio] 1.0 {ratio} 0.9-2.4 [facility] Automated blood erythrocyte countOrdered By: Reatigist Nuñez on 04-13-2024 RBC (Bld) [#/Vol] 3.75 10*6/uL Low 4.2-5.4 [facility] Comment on above: Performed By: #### L 100.0100, L500.4050 #### [facility] [address] [place], [address] Automated blood hematocrit ( percentage)Ordered By: Rea Nuñez on 04-13-2024 Hematocrit (Bld) [Volume fraction] 36.1 % Low 37-47 [facility] Comment on above: Performed By: #### L 100.0100, L500.4050 #### [facility] [address] [place], [address] Automated lymphocyte count a s percentage of total leukocytesOrdered By: Rea Nuñez on 04-13-2024 Lymphocytes/100 WBC (Bld) 33.3 % Normal -41 [facility] Comment on above: Performed By: #### L 100.0100, L500.4050 #### [facility] [address] [place], [address] Lymphocytes/100 WBC Auto (Unsp spec) 33.3 % - [facility] Basophil percentageOrdered B y: Rea Nuñez on 04-13-2024 Basophils/100 WBC (Bld) 0.7 % Normal 0-1 [facility] Comment on above: Performed By: #### L 100.0100, L500.4050 #### [facility] [address] [place], [address] Bilirubin, totalOrdered By: Rea Nuñez on 04-13-2024 Bilirubin [Mass/Vol] 0.30 mg/dL 0.20-1.00 [facility] Comment on above: For patients on eltr ombopag therapy, use of Dimension Roy TBIL is not recommended. Blood urea nitrogen (BUN)/cr eatinine ratioOrdered By: Rea Nuñez on 04-13-2024 Urea nitrogen/Creatinine [Mass ratio] 19.6 mg/mg 10-20 [facility] CBC W/Diff, Automatedon 03-22 Absolute Lymph 2.77 X10 3/uL Normal 0.83-4.51 [facility] Comment on above: Performed By: #### L 100.0100, L500.4050 #### [facility] [address] [place], [address] Absolute Neut 4.5 X10 3/uL Normal 2.0-7.7 [facility] Comment on above: Performed By: #### L 100.0100, L500.4050 #### [facility] [address] [place], [address] IG% 0.200 Normal 0.0-0.9 [facility] Comment on above: Result Comment: IG% - Immature Granulocytes (promyelocytes, myelocytes and metamyelocytes) > 1% indicates that a LEFT SHIFT is Present. Performed By: #### L 100.0100, L500.4050 #### [facility] [address] [place], [address] Nucleated RBC (Bld) [#/Vol] 0 10*3/uL Normal 0-5 [facility] Comment on above: Performed By: #### L 100.0100, L500.4050 #### [facility] [address] [place], [address] RDW SD 48.2 fl High 35.1-43.9 [facility] Comment on above: Performed By: #### L 100.0100, L500.4050 #### [facility] [address] [place], [address] Carbon dioxide measurementOr dered By: Rea uNñez on 04-13-2024 CO2 [Moles/Vol] 24.0 mmol/L 21.0-32.0 [facility] Chloride measurementOrdered By: Rea Nuñez on 04-13-2024 Chloride [Moles/Vol] 109 mmol/L High 98-107 [facility] Comprehensive Metabolic Prof ilon 04-13-2024 Albumin [Mass/Vol] 3.7 g/dL Normal 3.2-5.0 [place] Comment on above: Performed By: #### L 100.0100, L500.4050 #### [facility] [address] [place], [address] Albumin/Globulin [Mass ratio] 1.0 {ratio} Normal 0.9-2.4 [facility] Comment on above: Performed By: #### L 100.0100, L500.4050 #### [facility] [address] [place], [address] ALK P 57 U/L Normal 45-117 [facility] Comment on above: Performed By: #### L 100.0100, L500.4050 #### [facility] [address] [place], [address] ALT [Catalytic activity/Vol] 21 U/L Normal 13-56 [facility] Comment on above: Performed By: #### L 100.0100, L500.4050 #### [facility] [address] [place], [address] AST [Catalytic activity/Vol] 10 U/L Low 15-37 [facility] Comment on above: Performed By: #### L 100.0100, L500.4050 #### [facility] [address] [place], [address] Bilirubin [Mass/Vol] 0.30 mg/dL Normal 0.20-1.00 [facility] Comment on above: Result Comment: For patients on eltrombopag therapy, use of Dimension Roy TBIL is not recommended. Performed By: #### L 100.0100, L500.4050 #### [facility] [address] [place], [address] BUN/CRE 19.6 RATIO Normal 10-20 [facility] Comment on above: Performed By: #### L 100.0100, L500.4050 #### [facility] [address] [place], [address] CA,Total 9.2 mg/dL Normal 8.5-10.1 [facility] Comment on above: Performed By: #### L 100.0100, L500.4050 #### [facility] [address] [place], [address] Chloride [Moles/Vol] 109 mmol/L High 98-107 [facility] Comment on above: Performed By: #### L 100.0100, L500.4050 #### [facility] [address] [place], [address] CO2 [Moles/Vol] 24.0 mmol/L Normal 21.0-32.0 [facility] Comment on above: Performed By: #### L 100.0100, L500.4050 #### [facility] [address] [place], [address] Creatinine [Mass/Vol] 0.87 mg/dL Normal 0.55-1.02 [facility] Comment on above: Result Comment: The validity of the calculated GFR GFRAA in patients over 70 years has not been determined. Clinical correlation is essential. Performed By: #### L 100.0100, L500.4050 #### [facility] [address] [place], [address] EST GFR - AA 95 mL/min Normal >60 [facility] Comment on above: Result Comment: Afri can Romanian GFR Calc Performed By: #### L 100.0100, L500.4050 #### [facility] [address] [place], [address] GAP 7 Normal 5-15 [facility] Comment on above: Performed By: #### L 100.0100, L500.4050 #### [facility] [address] [place], [address] GFR/1.73 sq M.predicted among non-blacks MDRD (S/P/Bld) [Vol rate/Area] 78 mL/min/{1.73_m2} Normal >60 [facility] Comment on above: Result Comment: Non- GFR Calc Performed By: #### L 100.0100, L500.4050 #### [facility] [address] [place], [address] Globulin (S) [Mass/Vol] 3.7 g/dL Normal 2.2-4.2 [facility] Comment on above: Performed By: #### L 100.0100, L500.4050 #### [facility] [address] [place], [address] Glucose [Mass/Vol] 90 mg/dL Normal 74-106 [place] Comment on above: Performed By: #### L 100.0100, L500.4050 #### [facility] [address] [place], [address] Potassium [Moles/Vol] 3.9 mmol/L Normal 3.5-5.1 [facility] Comment on above: Performed By: #### L 100.0100, L500.4050 #### [facility] [address] [place], [address] Sodium [Moles/Vol] 139 mmol/L Normal 136-145 [place] Comment on above: Performed By: #### L 100.0100, L500.4050 #### [facility] [address] [place], [address] T PROT 7.4 g/dL Normal 6.4-8.2 [facility] Comment on above: Performed By: #### L 100.0100, L500.4050 #### [facility] [address] [place], [address] Urea nitrogen [Mass/Vol] 17 mg/dL Normal 7-18 [facility] Comment on above: Performed By: #### L 100.0100, L500.4050 #### [facility] [address] [place], [address] Eosinophil percentageOrdered By: Rea Nuñez on 04-13-2024 Eosinophils/100 WBC (Bld) 2.4 % Normal 0-5 [facility] Comment on above: Performed By: #### L 100.0100, L500.4050 #### [facility] [address] [place], [address] Erythrocyte distribution wid th ratioOrdered By: Rea Nuñez on 04-13-2024 Erythrocyte distribution width (RBC) [Ratio] 13.5 % Normal 11.6-14.6 [facility] Comment on above: Performed By: #### L 100.0100, L500.4050 #### [facility] [address] [place], [address] Erythrocyte distribution wid th standard deviationOrdered By: Rea Nuñez on 04-13-2024 Erythrocyte distribution width (RBC) [Entitic vol] 48.2 fL High 35.1-43.9 [facility] Erythrocyte distribution width (RBC) [Ratio] 48.2 fl High 35.1-43.9 [facility] Estimated glomerular filtrat ion rate (GFR) AmericanOrdered By: Rea Nuñez on 04-13-2024 Estimated GFR (MDRD) Amer 95 mL/min >60 [facility] Comment on above: GFR Calc Glomerular filtration rate ( GFR) estimationOrdered By: Rea Nuñez on 04-13-2024 Estimated GFR (MDRD) Non-Af Amer 78 mL/min >60 [facility] Comment on above: Non- GFR Calc GFR/1.73 sq M.predicted among non-blacks MDRD (S/P/Bld) [Vol rate/Area] 78 mL/min/{1.73_m2} >60 [facility] Comment on above: Non- GFR Calc Glucose measurementOrdered B y: Rea Nuñez on 04-13-2024 Glucose [Mass/Vol] 90 mg/dL 74-106 [place] Hemoglobin measurementOrdere d By: Rea Nuñez on 04-13-2024 Hemoglobin (Bld) [Mass/Vol] 11.9 g/dL Low 12.0-15.0 [facility] Comment on above: Performed By: #### L 100.0100, L500.4050 #### [facility] [address] [place] [address], [address] Immature granulocytes/100 WB C Auto (Bld)Ordered By: Rea Nuñez on 04-13-2024 Immature granulocytes/100 WBC (Bld) 0.200 % 0.0-0.9 [facility] Comment on above: IG% - Immature Granu locytes (promyelocytes, myelocytes and metamyelocytes) > 1% indicates that a LEFT SHIFT is Present. Laboratory - Chemistry and C hemistry - challengeOrdered By: Rea Nuñez on 04-13-2024 AST [Catalytic activity/Vol] 10 U/L Low 15-37 [facility] Lymphocytes Auto (Unsp spec) [#/Vol]Ordered By: Rea Nuñez on 04-13-2024 Lymphocytes (Bld) [#/Vol] 2.77 10*3/uL 0.83-4.51 [facility] MCV (mean corpuscular volume ) determinationOrdered By: Rea Nuñez on 04-13-2024 MCV (RBC) [Entitic vol] 96.3 fL Normal 81-99 [facility] Comment on above: Performed By: #### L 100.0100, L500.4050 #### [facility] [facility] [address] [place], [address] Mean corpuscular hemoglobin (MCH) determinationOrdered By: Rea Nuñez on 04-13-2024 MCH (RBC) [Entitic mass] 31.7 pg Normal 27.0-32.0 [facility] Comment on above: Performed By: #### L 100.0100, L500.4050 #### [facility] [address] [place], [address] Mean corpuscular hemoglobin concentration (MCHC) determinationOrdered By: Rea Nuñez on 04-13-2024 MCHC (RBC) [Mass/Vol] 33.0 g/dL Normal 32-36 [facility] Comment on above: Performed By: #### L 100.0100, L500.4050 #### [facility] [address] [place], [address] Mean platelet volume determi nationOrdered By: Rea Nuñez on 04-13-2024 Platelet mean volume (Bld) [Entitic vol] 11.0 fL Normal 6.2-12.0 [facility] Comment on above: Performed By: #### L 100.0100, L500.4050 #### [facility] [address] [place], [address] Monocyte percentageOrdered B y: Rea Nuñez on 04-13-2024 Monocytes/100 WBC (Bld) 9.0 % Normal 0-10 [facility] Comment on above: Performed By: #### L 100.0100, L500.4050 #### [facility] [address] [place], [address] Neutrophil percentageOrdered By: Rea Nuñez on 04-13-2024 Neutrophils/100 WBC (Bld) 54.4 % Normal 47-70 [facility] Comment on above: Performed By: #### L 100.0100, L500.4050 #### [facility] [address] [place], [address] Nucleated red blood cell per centageOrdered By: Rea Nuñez on 04-13-2024 Nucleated RBC/100 WBC (Bld) [Ratio] 0 % 0-5 [facility] Platelet countOrdered By: Lloyd Nuñez on 04-13-2024 Platelets (Bld) [#/Vol] 279 10*3/uL Normal 150-450 [facility] Comment on above: Performed By: #### L 100.0100, L500.4050 #### [facility] [address] [place], [place], [id number] Potassium measurementOrdered By: Rea Nuñez on 04-13-2024 Potassium [Moles/Vol] 3.9 mmol/L 3.5-5.1 [facility] Serum anion gap measurementO rdered By: Rea Nuñez on 04-13-2024 Anion gap [Moles/Vol] 7 mmol/L 5-15 [facility] Serum globulin measurementOr dered By: Rea Nuñez on 04-13-2024 Globulin (S) [Mass/Vol] 3.7 g/dL 2.2-4.2 [facility] Serum or plasma alanine mccullough otransferase (ALT) measurementOrdered By: Rea Nuñez on 04-13-2024 ALT [Catalytic activity/Vol] 21 U/L 13-56 [facility] Serum or plasma albumin beatriz urement (mass/volume)Ordered By: Rea Nuñez on 04-13-2024 Albumin [Mass/Vol] 3.7 g/dL 3.2-5.0 [place] Serum or plasma alkaline rajesh sphatase measurementOrdered By: Rea Nuñez on 04-13-2024 ALP [Catalytic activity/Vol] 57 U/L 45-117 [facility] Serum or plasma calcium beatriz urement (mass/volume)Ordered By: Rea Nuñez on 04-13-2024 Calcium [Mass/Vol] 9.2 mg/dL 8.5-10.1 [place] Serum or plasma creatinine m easurement (mass/volume)Ordered By: Rea Nuñez on 04-13-2024 Creatinine [Mass/Vol] 0.87 mg/dL 0.55-1.02 [facility] Comment on above: The validity of the calculated GFR & GFRAA in patients over 70 years has not been determined. Clinical correlation is essential. Serum or plasma urea nitroge n measurement (mass/volume)Ordered By: Rea Nuñez on 04-13-2024 Urea nitrogen [Mass/Vol] 17 mg/dL 7-18 [facility] Sodium levelOrdered By: Emre Nuñez on 04-13-2024 Sodium [Moles/Vol] 139 mmol/L 136-145 [place] Total proteinOrdered By: Mer Nuñez on 04-13-2024 Protein [Mass/Vol] 7.4 g/dL 6.4-8.2 [place] White blood cell (WBC) count Ordered By: Rea Nuñez on 04-13-2024 WBC (Bld) [#/Vol] 8.3 10*3/uL Normal 4.4-11.0 [place] Comment on above: Performed By: #### L 100.0100, L500.4050 #### [facility] [address] [place] [address], [id number] Absolute neutrophil countOrd ered By: Nona Moreno on 03-30-2024 Neutrophils (Bld) [#/Vol] 3.5 10*3/uL 2.0-7.7 [facility] Albumin to globulin ratioOrd ered By: Nona Moreno on 03-30-2024 Albumin/Globulin [Mass ratio] 1.0 {ratio} 0.9-2.4 [facility] Basophil percentageOrdered B y: Nona Moreno on 03-30-2024 Basophils/100 WBC (Bld) 1.0 % 0-1 [facility] Bilirubin, totalOrdered By: Nona Moreno on 03-30-2024 Bilirubin [Mass/Vol] 0.50 mg/dL 0.20-1.00 [facility] Comment on above: For patients on eltr ombopag therapy, use of Dimension Roy TBIL is not recommended. Blood urea nitrogen (BUN)/cr eatinine ratioOrdered By: Nona Moreno on 03-30-2024 Urea nitrogen/Creatinine [Mass ratio] 19.8 mg/mg 10- [facility] CBC W/Diff, Automatedon 03-21 Absolute Lymph 1.81 X10 3/uL Normal 0.83-4.51 [facility] Comment on above: Performed By: #### L 100.0100, L500.4050 #### [facility] [address] [place], [address] Absolute Neut 3.5 X10 3/uL Normal 2.0-7.7 [facility] Comment on above: Performed By: #### L 100.0100, L500.4050 #### [facility] [address] [place], [address] Basophils/100 WBC (Bld) 1.0 % Normal 0-1 [facility] Comment on above: Performed By: #### L 100.0100, L500.4050 #### [facility] [address] [place], [address] Eosinophils/100 WBC (Bld) 3.0 % Normal 0-5 [facility] Comment on above: Performed By: #### L 100.0100, L500.4050 #### [facility] [address] [place], [address] Erythrocyte distribution width (RBC) [Ratio] 13.1 % Normal 11.6-14.6 [facility] Comment on above: Performed By: #### L 100.0100, L500.4050 #### [facility] [address] [place], [address] Hematocrit (Bld) [Volume fraction] 37.3 % Normal 37-47 [facility] Comment on above: Performed By: #### L 100.0100, L500.4050 #### [facility] [address] [place], [address] Hemoglobin (Bld) [Mass/Vol] 12.3 g/dL Normal 12.0-15.0 [facility] Comment on above: Performed By: #### L 100.0100, L500.4050 #### [facility] [address] [place], [address] IG% 0.300 Normal 0.0-0.9 [facility] Comment on above: Result Comment: IG% - Immature Granulocytes (promyelocytes, myelocytes and metamyelocytes) > 1% indicates that a LEFT SHIFT is Present. Performed By: #### L 100.0100, L500.4050 #### [facility] [address] [place], [address] Lymphocytes/100 WBC (Bld) 29.1 % Normal 19-41 [facility] Comment on above: Performed By: #### L 100.0100, L500.4050 #### [facility] [address] [place], [address] MCH (RBC) [Entitic mass] 31.9 pg Normal 27.0-32.0 [facility] Comment on above: Performed By: #### L 100.0100, L500.4050 #### [facility] [address] [place], [address] MCHC (RBC) [Mass/Vol] 33.0 g/dL Normal 32-36 [facility] Comment on above: Performed By: #### L 100.0100, L500.4050 #### [facility] [address] [place], [address] MCV (RBC) [Entitic vol] 96.6 fL Normal 81-99 [facility] Comment on above: Performed By: #### L 100.0100, L500.4050 #### [facility] [address] [place], [address] Monocytes/100 WBC (Bld) 10.4 % High 0-10 [facility] Comment on above: Performed By: #### L 100.0100, L500.4050 #### [facility] [address] [place], [address] Neutrophils/100 WBC (Bld) 56.2 % Normal 47-70 [facility] Comment on above: Performed By: #### L 100.0100, L500.4050 #### [facility] [address] [place], [address] Nucleated RBC (Bld) [#/Vol] 0 10*3/uL Normal 0-5 [facility] Comment on above: Performed By: #### L 100.0100, L500.4050 #### [facility] [address] [place], [address] Platelet mean volume (Bld) [Entitic vol] 11.5 fL Normal 6.2-12.0 [facility] Comment on above: Performed By: #### L 100.0100, L500.4050 #### [facility] [address] [place], [address] Platelets (Bld) [#/Vol] 257 10*3/uL Normal 150-450 [facility] Comment on above: Performed By: #### L 100.0100, L500.4050 #### [facility] [address] [place], [address] RBC (Bld) [#/Vol] 3.86 10*6/uL Low 4.2-5.4 [facility] Comment on above: Performed By: #### L 100.0100, L500.4050 #### [facility] [address] [place], [address] RDW SD 46.8 fl High 35.1-43.9 [facility] Comment on above: Performed By: #### L 100.0100, L500.4050 #### [facility] [address] [place], [address] WBC (Bld) [#/Vol] 6.2 10*3/uL Normal 4.4-11.0 [place] Comment on above: Performed By: #### L 100.0100, L500.4050 #### [facility] [address] [place], [address] Carbon dioxide measurementOr dered By: Nona Moreno on 03-30-2024 CO2 [Moles/Vol] 26.0 mmol/L 21.0-32.0 [facility] Chloride measurementOrdered By: Nona Moreno on 03-30-2024 Chloride [Moles/Vol] 105 mmol/L 98-107 [facility] Comprehensive Metabolic Prof ilon 03-30-2024 Albumin [Mass/Vol] 3.4 g/dL Normal 3.2-5.0 [place] Comment on above: Performed By: #### L 100.0100, L500.4050 #### [facility] [address] [place], [address] Albumin/Globulin [Mass ratio] 1.0 {ratio} Normal 0.9-2.4 [facility] Comment on above: Performed By: #### L 100.0100, L500.4050 #### [facility] [address] [place], [address] ALK P 53 U/L Normal 45-117 [facility] Comment on above: Performed By: #### L 100.0100, L500.4050 #### [facility] [address] [place], [address] ALT [Catalytic activity/Vol] 21 U/L Normal 13-56 [facility] Comment on above: Performed By: #### L 100.0100, L500.4050 #### [facility] [address] [place], [address] AST [Catalytic activity/Vol] 13 U/L Low 15-37 [facility] Comment on above: Performed By: #### L 100.0100, L500.4050 #### [facility] [address] [place], [address] Bilirubin [Mass/Vol] 0.50 mg/dL Normal 0.20-1.00 [facility] Comment on above: Result Comment: For patients on eltrombopag therapy, use of Dimension Roy TBIL is not recommended. Performed By: #### L 100.0100, L500.4050 #### [facility] [address] [place], [address] BUN/CRE 19.8 RATIO Normal 10-20 [facility] Comment on above: Performed By: #### L 100.0100, L500.4050 #### [facility] [address] [place], [address] CA,Total 8.5 mg/dL Normal 8.5-10.1 [facility] Comment on above: Performed By: #### L 100.0100, L500.4050 #### [facility] [address] [place], [address] Chloride [Moles/Vol] 105 mmol/L Normal 98-107 [facility] Comment on above: Performed By: #### L 100.0100, L500.4050 #### [facility] [address] [place], [address] CO2 [Moles/Vol] 26.0 mmol/L Normal 21.0-32.0 [facility] Comment on above: Performed By: #### L 100.0100, L500.4050 #### [facility] [address] [place], [address] Creatinine [Mass/Vol] 0.76 mg/dL Normal 0.55-1.02 [facility] Comment on above: Result Comment: The validity of the calculated GFR GFRAA in patients over 70 years has not been determined. Clinical correlation is essential. Performed By: #### L 100.0100, L500.4050 #### [facility] [address] [place], [address] EST GFR - AA 111 mL/min Normal >60 [facility] Comment on above: Result Comment: Afri can Romanian GFR Calc Performed By: #### L 100.0100, L500.4050 #### [facility] [address] [place], [address] GAP 5 Normal 5-15 [facility] Comment on above: Performed By: #### L 100.0100, L500.4050 #### [facility] [address] [place], [address] GFR/1.73 sq M.predicted among non-blacks MDRD (S/P/Bld) [Vol rate/Area] 92 mL/min/{1.73_m2} Normal >60 [facility] Comment on above: Result Comment: Non- GFR Calc Performed By: #### L 100.0100, L500.4050 #### [facility] [address] [place], [address] Globulin (S) [Mass/Vol] 3.3 g/dL Normal 2.2-4.2 [facility] Comment on above: Performed By: #### L 100.0100, L500.4050 #### [facility] [address] [place], [address] Glucose [Mass/Vol] 96 mg/dL Normal 74-106 [place] Comment on above: Performed By: #### L 100.0100, L500.4050 #### [facility] [address] [place], [address] Potassium [Moles/Vol] 3.6 mmol/L Normal 3.5-5.1 [facility] Comment on above: Performed By: #### L 100.0100, L500.4050 #### [facility] [address] [place], [address] Sodium [Moles/Vol] 136 mmol/L Normal 136-145 [place] Comment on above: Performed By: #### L 100.0100, L500.4050 #### [facility] [address] [place], [address] T PROT 6.7 g/dL Normal 6.4-8.2 [facility] Comment on above: Performed By: #### L 100.0100, L500.4050 #### [facility] [address] [place], [address] Urea nitrogen [Mass/Vol] 15 mg/dL Normal 7-18 [facility] Comment on above: Performed By: #### L 100.0100, L500.4050 #### [facility] [address] [place], [address] Direct serum free thyroxine (FT4) measurementOrdered By: Nona Moreno on 03-30-2024 Free T4 [Mass/Vol] 1.21 ng/dL 0.76-1.46 [place] Eosinophil percentageOrdered By: Nona Moreno on 03-30-2024 Eosinophils/100 WBC (Bld) 3.0 % 0-5 [facility] Erythrocyte distribution wid th ratioOrdered By: Nona Moreno on 03-30-2024 Erythrocyte distribution width (RBC) [Ratio] 13.1 % 11.6-14.6 [facility] Erythrocyte distribution wid th standard deviationOrdered By: Nona Moreno on 03-30-2024 Erythrocyte distribution width (RBC) [Entitic vol] 46.8 fL High 35.1-43.9 [facility] Estimated glomerular filtrat ion rate (GFR) AmericanOrdered By: Nona Moreno on 03-30-2024 Estimated GFR (MDRD) Amer 111 mL/min >60 [facility] Comment on above: GFR Calc Glomerular filtration rate ( GFR) estimationOrdered By: Nona Moreno on 03-30-2024 Estimated GFR (MDRD) Non-Af Amer 92 mL/min >60 [facility] Comment on above: Non- GFR Calc Glucose measurementOrdered B y: Nona Moreno on 03-30-2024 Glucose [Mass/Vol] 96 mg/dL 74-106 [place] Hematocrit Auto (Bld) [Volum e fraction]Ordered By: Nona Moreno on 03-30-2024 Hematocrit (Bld) [Volume fraction] 37.3 % 37-47 [facility] Hemoglobin measurementOrdere d By: Nona Moreno on 03-30-2024 Hemoglobin (Bld) [Mass/Vol] 12.3 g/dL 12.0-15.0 [facility] High density lipoprotein (HD L) measurementOrdered By: Nona Moreno on 03-30-2024 Cholesterol in HDL [Mass/Vol] 57 mg/dL >40 [facility] Comment on above: The drugs N-Acetylcy steine and Metamizole may falsely depress this assay. Reference Range HDL <40 mg/dL Low HDL Cholesterol HDL >or= 60 mg/dL High HDL Cholesterol Immature granulocytes/100 WB C Auto (Bld)Ordered By: Nona Moreno on 03-30-2024 Immature granulocytes/100 WBC (Bld) 0.300 % 0.0-0.9 [facility] Comment on above: IG% - Immature Granu locytes (promyelocytes, myelocytes and metamyelocytes) > 1% indicates that a LEFT SHIFT is Present. Laboratory - Chemistry and C hemistry - challengeOrdered By: Nona Moreno on 03-30-2024 AST [Catalytic activity/Vol] 13 U/L Low 15-37 [facility] Lipid Profileon 03-30-2024 Cholesterol [Mass/Vol] 153 mg/dL Normal 200 [facility] Comment on above: Result Comment: <200 mg/dL Desirable 200-240 mg/dL Borderline >240 mg/dL High Risk Performed By: #### L 100.0100, L500.4050 #### [facility] [address] [place], [address] Cholesterol in HDL [Mass/Vol] 57 mg/dL Normal [facility] Comment on above: Result Comment: The drugs N-Acetylcysteine and Metamizole may falsely depress this assay. Reference Range HDL <40 mg/dL Low HDL Cholesterol HDL >or= 60 mg/dL High HDL Cholesterol Performed By: #### L 100.0100, L500.4050 #### [facility] [address] [place], [address] Cholesterol in LDL [Mass/Vol] 83 mg/dL Normal 0-130 [facility] Comment on above: Performed By: #### L 100.0100, L500.4050 #### [facility] [address] [place], [address] Cholesterol in VLDL [Mass/Vol] 13 mg/dL Normal 5-40 [facility] Comment on above: Performed By: #### L 100.0100, L500.4050 #### [facility] [address] [place], [address] Triglyceride [Mass/Vol] 65 mg/dL Normal [facility] Comment on above: Result Comment: The drugs N-Acetylcysteine and Metamizole may falsely depress this assay. Serum Triglycerides Reference Interval Normal <150 mg/dL Borderline high 150 - 199 mg/dL High 200 - 499 mg/dL Very High > or = 500 mg/dL Performed By: #### L 100.0100, L500.4050 #### [facility] [address] [place], [address] Low density lipoprotein (LDL ) cholesterol measurementOrdered By: Nona Moreno on 03-30-2024 Cholesterol in LDL [Mass/Vol] 83 mg/dL 0-130 [facility] Lymphocytes Auto (Unsp spec) [#/Vol]Ordered By: Nona Moreno on 03-30-2024 Lymphocytes (Bld) [#/Vol] 1.81 10*3/uL 0.83-4.51 [facility] Lymphocytes/100 WBC Auto (Un sp spec)Ordered By: Nona Moreno on 03-30-2024 Lymphocytes/100 WBC (Bld) 29.1 % 19-41 [facility] MCV (mean corpuscular volume ) determinationOrdered By: Nona Moreno on 03-30-2024 MCV (RBC) [Entitic vol] 96.6 fL 81-99 [facility] Mean corpuscular hemoglobin (MCH) determinationOrdered By: Nona Moreno on 03-30-2024 MCH (RBC) [Entitic mass] 31.9 pg 27.0-32.0 [facility] Mean corpuscular hemoglobin concentration (MCHC) determinationOrdered By: Nona Moreno on 03-30-2024 MCHC (RBC) [Mass/Vol] 33.0 g/dL 32-36 [facility] Mean platelet volume determi nationOrdered By: Nona Moreno on 03-30-2024 Platelet mean volume (Bld) [Entitic vol] 11.5 fL 6.2-12.0 [facility] Monocyte percentageOrdered B y: Nona Moreno on 03-30-2024 Monocytes/100 WBC (Bld) 10.4 % High 0-10 [facility] Neutrophil percentageOrdered By: Nona Moreno on 03-30-2024 Neutrophils/100 WBC (Bld) 56.2 % 47-70 [facility] Nucleated red blood cell per centageOrdered By: Nona Moreno on 03-30-2024 Nucleated RBC/100 WBC (Bld) [Ratio] 0 % 0-5 [facility] Platelet countOrdered By: Rowdy Dubon on 03-30-2024 Platelets (Bld) [#/Vol] 257 10*3/uL 150-450 [facility] Potassium measurementOrdered By: Nona Moreno on 03-30-2024 Potassium [Moles/Vol] 3.6 mmol/L 3.5-5.1 [facility] RBC Auto (Bld) [#/Vol]Ordere d By: Nona Moreno on 03-30-2024 RBC (Bld) [#/Vol] 3.86 10*6/uL Low 4.2-5.4 [facility] Serum anion gap measurementO rdered By: Nona Moreno on 03-30-2024 Anion gap [Moles/Vol] 5 mmol/L 5-15 [facility] Serum globulin measurementOr dered By: Nona Moreno on 03-30-2024 Globulin (S) [Mass/Vol] 3.3 g/dL 2.2-4.2 [facility] Serum or plasma alanine mccullough otransferase (ALT) measurementOrdered By: Nona Moreno on 03-30-2024 ALT [Catalytic activity/Vol] 21 U/L 13-56 [facility] Serum or plasma albumin beatriz urement (mass/volume)Ordered By: Nona Moreno on 03-30-2024 Albumin [Mass/Vol] 3.4 g/dL 3.2-5.0 [place] Serum or plasma alkaline rajesh sphatase measurementOrdered By: Nona Moreno on 03-30-2024 ALP [Catalytic activity/Vol] 53 U/L 45-117 [facility] Serum or plasma calcium beatriz urement (mass/volume)Ordered By: Nona Moreno on 03-30-2024 Calcium [Mass/Vol] 8.5 mg/dL 8.5-10.1 [place] Serum or plasma cholesterol measurement (mass/volume)Ordered By: Nona Moreno on 03-30-2024 Cholesterol [Mass/Vol] 153 mg/dL <200 [facility] Comment on above: <200 mg/dL Desirable 200-240 mg/dL Borderline >240 mg/dL High Risk Serum or plasma creatinine m easurement (mass/volume)Ordered By: Nona Moreno on 03-30-2024 Creatinine [Mass/Vol] 0.76 mg/dL 0.55-1.02 [facility] Comment on above: The validity of the calculated GFR & GFRAA in patients over 70 years has not been determined. Clinical correlation is essential. Serum or plasma urea nitroge n measurement (mass/volume)Ordered By: Nona Moreno on 03-30-2024 Urea nitrogen [Mass/Vol] 15 mg/dL 7-18 [facility] Sodium levelOrdered By: Nona Moreno on 03-30-2024 Sodium [Moles/Vol] 136 mmol/L 136-145 [place] T4 Free Directon 03-30-2024 T4 FREE DIRECT 1.21 ng/dL Normal 0.76-1.46 [facility] Comment on above: Performed By: #### L 100.0100, L500.4050 #### [facility] [address] [place], [address] TSH QnOrdered By: Nona alegre on 03-30-2024 Thyroid Stimulating Hormone (TSH) 1.520 uIU/mL 0.358-3.740 [facility] Thyroid Stim Hormone (TSH)on 03-30-2024 TSH 1.520 uIU/mL Normal 0.358-3.740 [facility] Comment on above: Performed By: #### L 100.0100, L500.4050 #### [facility] [address] [place], [place], [address] Total proteinOrdered By: Shona Moreno on 03-30-2024 Protein [Mass/Vol] 6.7 g/dL 6.4-8.2 [place] Triglycerides measurementOrd ered By: Nona Moreno on 03-30-2024 Triglyceride [Mass/Vol] 65 mg/dL <199 [facility] Comment on above: The drugs N-Acetylcy steine and Metamizole may falsely depress this assay.Serum Triglycerides Reference Interval Normal <150 mg/dL Borderline high 150 - 199 mg/dL High 200 - 499 mg/dL Very High > or = 500 mg/dL Very low density lipoprotein (VLDL) cholesterol measurementOrdered By: Nona Moreno on 03-30-2024 VLDL Cholesterol 13 mg/dL 5-40 [facility] White blood cell (WBC) count Ordered By: Nona Moreno on 03-30-2024 WBC (Bld) [#/Vol] 6.2 10*3/uL 4.4-11.0 [place] Surgery Visit Reporton 01-12 Surgery Visit Report [facility] [address] [place], [place] [address] OFFICE VISIT Date of Service: 01/13/24 MR#: [id number] Acct: [id number] Name: DALLAS FARIAS Rep #: [id number] : 1985 Provider: Dr. Christian mcallister MD Age/Sex: 38/F Location: [facility] Status: Signed Intake Vital Signs 12/01/23 14:06 01/13/24 13:55 Height 5 ft 4 in 5 ft 4 in Weight: 184 lb BMI 31.6 BP 133/76 H Blood Pressure Location Rt brachial Position Sitting Respiration 18 Intake Visit Reasons: ABNORMAL HIDA Chief Complaint: abn hida Buzzle Buffer Required: No Is patient in pain?: Yes (right ribs and ruq abd) Allergies gluten Allergy (Verified 01/13/24 13:57) Abd cramps/diarrhea Medications ???Medication ???Instructions ???Recorded ???Confirmed ???Type apple cider vinegar 300 mg tablet 300 mg PO DAILY 07/12/22 08/14/23 History cholecalciferol (vitamin D3) 25 25 mcg PO DAILY 07/12/22 08/14/23 History mcg (1,000 unit) capsule folic acid 1 mg tablet 1 mg PO DAILY 07/12/22 08/14/23 History levothyroxine 25 mcg tablet 25 mcg PO QODAY 07/12/22 01/13/24 History vitamin B complex (B 1 tab PO DAILY 07/12/22 01/13/24 History Complex-Vitamin B12 tablet) melatonin 3 mg capsule 3 mg PO HS PRN sleep 10/13/22 01/13/24 History ondansetron 4 mg disintegrating 4 mg PO Q8H PRN PRN Nausea #14 tabs 08/14/23 01/13/24 Rx tablet Have you fallen in the past year?: No PFSH Medical History Allergic dermatitis Depression IBS (irritable bowel syndrome) Weight gain PVC's (premature ventricular contractions) Palpitations Polyarthralgia Hypothyroidism History of prolactinoma Surgical History H/O section Family History Mother Hearing loss Grandmother Diabetes Colon cancer PVC (premature ventricular contraction) Grandfather Diabetes Crohn's disease Heart disease Grandmother Alzheimers disease Social History Smoking Status: Former smoker how long ago did patient quit smokin alcohol intake: current substance use type: does not use caffeine: No frequency: daily HPI HPI HPI: Patient is a 38-year-old female here for right upper quadrant pain. She says has been going on for several years. She had a HIDA back several years ago that showed an ejection fraction of 12% and they wanted to take her gallbladder out but she did not have the time or money to have surgery. She says that it hurts really badly when she eats unhealthy food. She also reports that it hurt really badly after the CCK injection during the HIDA. ROS General General: Yes weight change; No appetite, fatigue, colon cancer, breast cancer or weakness HEENT HEENT: No difficulty swallowing, eye injury, eye surgery, swollen glands or hoarseness Endo Endocrine: Yes thyroid disease; No diabetes mellitus, thyroid cancer, Hair loss, heat intolerance or cold intolerance Skin Skin: No rash or changing moles Breast Breast: No left breast lump, right breast lump, nipple discharge, breast pain, abnormal mammogram, abnormal US or breast enlargement Musc Musculoskeletal: Yes back problems and rheumatoid arthritis; No arthritis, gout or joint pain Cardio Cardiovascular: Yes murmur; No pacemaker, heart disease, atrial fibrillation, high blood pressure, heart attack, heart stent, palpitations, shortness of breat with exertion or chest pain Psych Psychiatric: No depression, anxiety or hearing voices Resp Respiratory: No shortness of breath, No sleep apnea, No cough, No COPD, No asthma, No emphysema and No wheezing Gastro Gastrointestinal: Yes abdominal pain, Yes nausea or vomiting, No diarrhea, Yes constipation, No blood in stool, No acid reflux, No hemorrhoids, No ulcers, Yes gallbladder problem and No black,tarry stools Santosh Hematologic: No blood thinners, No blood disorders, No bleeding, Yes anemia and No blood clots Neuro Neurologic: No system reviewed and no additional complaints, except as documented, No as per HPI, No abnormal gait, No abnormal hearing, No abnormal movements, No abnormal speech, No behavioral changes, No burning sensations, No confusion, No convulsions, No disequilibrium, No dizziness, No localized weakness, No frequent falls, No headache(s), No lack of coordination, No loss of vision, No memory loss, No numbness, No other visual disturbances, No radicular pain, No restless legs, No sensory deficit, No syncope, No tingling, No tremor(s), No weakness and No other Exam Const General: cooperative Orientation: alert and oriented x3 HENMT Head: normal to inspection Neck Neck: normal visual ins (more content not included)... Normal [facility] Hepatobilliary Img w/Pharm I nton 12-19-2023 Hepatobilliary Img w/Pharm Int [facility] Imaging Services [address], [place] [address] Hepatobilliary Img w/Pharm Int MR#: [id number] Acct: [id number] Name: DALLAS FARIAS Rep #: [id number] : 1985 F 38 From: Eleonora Bullock PCP: WANG Najera Status: REG CLI Study: Hepatobilliary Img w/Pharm Int Date of Exam: 0 12/19/23 Exam# [id number] Ordering Dr: Nona Moreno [id number] CLINICAL: 38-year-old female with history of gallbladder disease. RADIONUCLIDE HEPATOBILIARY SCINTIGRAPHY COMPARISON: Gallbladder ultrasound report 11/19/2023 FINDINGS: Following the intravenous administration of 6.0 mCi of 99m Tc Mebrofenin, hepatobiliary images reveal: 1. Relatively prompt and homogeneous radiopharmaceutical concentration is noted by a normal sized liver. No parenchymal defects are identified. 2. Gallbladder activity is identified at 15 minutes post radiopharmaceutical administration. 3. Small intestinal tract is observed at 45 minutes following tracer injection. 4. Washout of the radiopharmaceutical by the hepatic parenchyma appears qualitatively normal. Cholecystokinin (0.02 ug/kg) was administered intravenously over a 30-minute period. The post CCK gallbladder ejection fraction calculated at 20 minutes following Cholecystokinin administration was noted to be 18.0 % (normal greater than 35%). NM/Hepatobilliary Img w/Pharm Int IMPRESSION: 1. ABNORMAL 99m Tc Mebrofenin hepatobiliary imaging examination with Cholecystokinin. A. A gallbladder ejection fraction calculated to be less than 35% following the administration of Cholecystokinin is consistent with the presence of functional hepatobiliary disease (gallbladder and/or sphincter of Oddi dyskinesia) and/or organic hepatobiliary disease (chronic acalculous cholecystitis and/or cystic duct syndrome) in patients with intermediate to high pretest probabilities of hepatobiliary illness. (Xenia Garza et al, Journal of Nuclear Medicine 32:1695, 1991). Electronically Signed: Eleonora Benítez, at 22:33 EDT , CC: WANG Moreno Billposter: Signed Normal [facility] CBC W/Diff, Automatedon 11-19 Absolute Lymph 3.13 X10 3/uL Normal 0.83-4.51 [facility] Comment on above: Performed By: #### L 500.4050, L100.0100 #### [facility] [address] [place], [address] Absolute Neut 4.1 X10 3/uL Normal 2.0-7.7 [facility] Comment on above: Performed By: #### L 500.4050, L100.0100 #### [facility] [address] [place], [address] Basophils/100 WBC (Bld) 1.0 % Normal 0-1 [facility] Comment on above: Performed By: #### L 500.4050, L100.0100 #### [facility] [address] [place], [address] Eosinophils/100 WBC (Bld) 2.2 % Normal 0-5 [facility] Comment on above: Performed By: #### L 500.4050, L100.0100 #### [facility] [address] [place], [address] Erythrocyte distribution width (RBC) [Ratio] 12.6 % Normal 11.6-14.6 [facility] Comment on above: Performed By: #### L 500.4050, L100.0100 #### [facility] [address] [place], [address] Hematocrit (Bld) [Volume fraction] 35.9 % Low 37-47 [facility] Comment on above: Performed By: #### L 500.4050, L100.0100 #### [facility] [address] [place], [address] Hemoglobin (Bld) [Mass/Vol] 11.4 g/dL Low 12.0-15.0 [facility] Comment on above: Performed By: #### L 500.4050, L100.0100 #### [facility] [address] [place], [address] IG% 0.600 Normal 0.0-0.9 [facility] Comment on above: Result Comment: IG% - Immature Granulocytes (promyelocytes, myelocytes and metamyelocytes) > 1% indicates that a LEFT SHIFT is Present. Performed By: #### L 500.4050, L100.0100 #### [facility] [address] [place], [address] Lymphocytes/100 WBC (Bld) 37.7 % Normal 19-41 [facility] Comment on above: Performed By: #### L 500.4050, L100.0100 #### [facility] [address] [place], [address] MCH (RBC) [Entitic mass] 31.6 pg Normal 27.0-32.0 [facility] Comment on above: Performed By: #### L 500.4050, L100.0100 #### [facility] [address] [place], [address] MCHC (RBC) [Mass/Vol] 31.8 g/dL Low 32-36 [facility] Comment on above: Performed By: #### L 500.4050, L100.0100 #### [facility] [address] [place], [address] MCV (RBC) [Entitic vol] 99.4 fL High 81-99 [facility] Comment on above: Performed By: #### L 500.4050, L100.0100 #### [facility] [address] [place], [address] Monocytes/100 WBC (Bld) 9.4 % Normal 0-10 [facility] Comment on above: Performed By: #### L 500.4050, L100.0100 #### [facility] [address] [place], [address] Neutrophils/100 WBC (Bld) 49.1 % Normal 47-70 [facility] Comment on above: Performed By: #### L 500.4050, L100.0100 #### [facility] [address] [place], [address] Nucleated RBC (Bld) [#/Vol] 0 10*3/uL Normal 0-5 [facility] Comment on above: Performed By: #### L 500.4050, L100.0100 #### [facility] [address] [place], [address] Platelet mean volume (Bld) [Entitic vol] 11.0 fL Normal 6.2-12.0 [facility] Comment on above: Performed By: #### L 500.4050, L100.0100 #### [facility] [address] [place], [address] Platelets (Bld) [#/Vol] 305 10*3/uL Normal 150-450 [facility] Comment on above: Performed By: #### L 500.4050, L100.0100 #### [facility] [address] [place], [address] RBC (Bld) [#/Vol] 3.61 10*6/uL Low 4.2-5.4 [facility] Comment on above: Performed By: #### L 500.4050, L100.0100 #### [facility] [address] [place], [address] RDW SD 46.1 fl High 35.1-43.9 [facility] Comment on above: Performed By: #### L 500.4050, L100.0100 #### [facility] [address] [place], [address] WBC (Bld) [#/Vol] 8.3 10*3/uL Normal 4.4-11.0 [place] Comment on above: Performed By: #### L 500.4050, L100.0100 #### [facility] [address] [place], [address] Comprehensive Metabolic Prof [facility] 12-02-2023 Albumin [Mass/Vol] 3.3 g/dL Normal 3.2-5.0 [place] Comment on above: Performed By: #### L 500.4050, L100.0100 ####[facility] [address] [place], [address] Albumin/Globulin [Mass ratio] 0.9 {ratio} Normal 0.9-2.4 [facility] Comment on above: Performed By: #### L 500.4050, L100.0100 ####[facility] [address] [place], [address] ALK P 57 U/L Normal 45-117 [facility] Comment on above: Performed By: #### L 500.4050, L100.0100 ####[facility] [address] [place], [address] ALT [Catalytic activity/Vol] 31 U/L Normal 13-56 [facility] Comment on above: Performed By: #### L 500.4050, L100.0100 ####[facility] [address] [place], [address] AST [Catalytic activity/Vol] 19 U/L Normal 15-37 [facility] Comment on above: Performed By: #### L 500.4050, L100.0100 ####[facility] [address] [place], [address] Bilirubin [Mass/Vol] 0.20 mg/dL Normal 0.20-1.00 [facility] Comment on above: Result Comment: For patients on eltrombopag therapy, use of Dimension Roy TBIL is not recommended. Performed By: #### L 500.4050, L100.0100 ####[facility] [address] [place], [address] BUN/CRE 19.1 RATIO Normal 10-20 [facility] Comment on above: Performed By: #### L 500.4050, L100.0100 ####[facility] [address] [place], [address] CA,Total 9.1 mg/dL Normal 8.5-10.1 [facility] Comment on above: Performed By: #### L 500.4050, L100.0100 ####[facility] [address] [place], [address] Chloride [Moles/Vol] 107 mmol/L Normal 98-107 [facility] Comment on above: Performed By: #### L 500.4050, L100.0100 ####[facility] [address] [place], [address] CO2 [Moles/Vol] 25.0 mmol/L Normal 21.0-32.0 [facility] Comment on above: Performed By: #### L 500.4050, L100.0100 ####[facility] [address] [place], [address] Creatinine [Mass/Vol] 0.84 mg/dL Normal 0.55-1.02 [facility] Comment on above: Result Comment: The validity of the calculated GFR GFRAA in patients over 70 years has not been determined. Clinical correlation is essential. Performed By: #### L 500.4050, L100.0100 ####[facility] [address] [place], [address] EST GFR - AA 99 mL/min Normal >60 [facility] Comment on above: Result Comment: Afri can Romanian GFR Calc Performed By: #### L 500.4050, L100.0100 ####[facility] [address] [place], [address] GAP 9 Normal 5-15 [facility] Comment on above: Performed By: #### L 500.4050, L100.0100 ####[facility] [address] [place], [address] GFR/1.73 sq M.predicted among non-blacks MDRD (S/P/Bld) [Vol rate/Area] 81 mL/min/{1.73_m2} Normal >60 [facility] Comment on above: Result Comment: Non- GFR Calc Performed By: #### L 500.4050, L100.0100 ####[facility] [address] [place], [address] Globulin (S) [Mass/Vol] 3.8 g/dL Normal 2.2-4.2 [facility] Comment on above: Performed By: #### L 500.4050, L100.0100 ####[facility] [address] [place], [address] Glucose [Mass/Vol] 118 mg/dL High 74-106 [place] Comment on above: Result Comment: Fast ing Glucose result from 100 to 125 mg/dL suggests IMPAIRED HOMEOSTASIS per A.D.A. criteria. Performed By: #### L 500.4050, L100.0100 ####[facility] [address] [place], [address] Potassium [Moles/Vol] 3.7 mmol/L Normal 3.5-5.1 [facility] Comment on above: Performed By: #### L 500.4050, L100.0100 ####[facility] [address] [place], [address] Sodium [Moles/Vol] 141 mmol/L Normal 136-145 [place] Comment on above: Performed By: #### L 500.4050, L100.0100 ####[facility] [address] [place], [address] T PROT 7.1 g/dL Normal 6.4-8.2 [facility] Comment on above: Performed By: #### L 500.4050, L100.0100 ####[facility] [address] [place], [address] Urea nitrogen [Mass/Vol] 16 mg/dL Normal 7-18 [facility] Comment on above: Performed By: #### L 500.4050, L100.0100 ####[facility] [address] [place], [address] Chest PA and Lateralon 11-30 Chest PA and Lateral [facility] Imaging Services [address] [place] [address] Chest PA and Lateral MR#: [id number] Acct: [id number] Name: DALLAS FARIAS Rep #: [id number] : 1985 F 38 From: Marin queen MD PCP: WANG Najera Status: PRE ER Study: Chest PA and Lateral Date of Exam: 12/01/23 Exam# [id number] Ordering Dr: Beck Richardson [place] [id number] STUDY: X-RAY CHEST REASON FOR EXAM: Female, 38 years old. Hemoptysis with cough TECHNIQUE: PA and lateral views of the chest. COMPARISON: Comparison is made with prior study dated August 14, 2023. FINDINGS: The lungs are clear and expanded. There is no demonstrated pleural abnormality. Normal size heart. Normal mediastinum and kylah. Normal visualized pulmonary arteries. Normal visualized aortic arch and descending thoracic aorta. Normal visualized thoracic spine. Normal visualized ribs, clavicles, and shoulders. There is no demonstrated abnormality of the visualized soft tissue structures of the upper abdomen. RAD/Chest PA and Lateral IMPRESSION: Normal x-ray examination of the chest. Electronically Signed: Marin Mckeon MD at 14:37 EDT Reading Location ID and State: [facility] / [place] , Service support , CC: WANG Moreno; Dr. Beck Richardson MD Billposter: Signed Normal [facility] Emergency Department Summary on 12-01-2023 Emergency Department Summary [facility] Medical Records Department [address] [place] [address] Emergency Department Summary 12/01/23 MR#: [id number] Acct: [id number] Name: DALLAS FARIAS Rep #: [id number] : 1985 38 From: Beck Richardson MD PCP: WANG Najera Status:PRE ER Location: ED HPI History of Present Illness Chief Complaint: Cough Detail of Chief Complaint: Cough with hemoptysis Informant: patient Onset/Context/Timing Onset: Days (Onset of cough Tuesday, November 25) Context: Sudden Onset Timing: Intermittent Quality: Patient had 1 episode of hemoptysis on Tuesday, Tuesday and today Location: Respiratory Current Severity: Mild Maximum Severity: Mild Worsened by: Nothing Relieved by: Nothing Associated Symptoms Associated Symptoms: Cough with intermittent hemoptysis Narrative Narrative: Patient is a 38-year-old female. She has history of RA. She also has history of hypothyroidism. Patient was diagnosed on Tuesday with bronchitis. She denies fever, chills nitrous. She presently denies rhinorrhea postnasal drainage sore throat. Her cough is essentially nonproductive. The first episode of hemoptysis occurred on Tuesday after a significant coughing spell. She has no history of VTE. She has no risk factors for VTE. She denies chest pain of any type including pleuritic. She denies leg pain, swelling discoloration. Prior similar symptoms: Yes Recent Illness/Hospitalizatio n: Yes PFSH PFS Medical History Allergic dermatitis Depression IBS (irritable bowel syndrome) Weight gain PVC's (premature ventricular contractions) Palpitations Polyarthralgia Hypothyroidism History of prolactinoma Home Medications ???Medication ???Instructions ???Recorded ???Last Taken ???Type apple cider vinegar 300 mg tablet 300 mg PO DAILY 07/12/22 Unknown History cholecalciferol (vitamin D3) 25 25 mcg PO DAILY 07/12/22 Unknown History mcg (1,000 unit) capsule folic acid 1 mg tablet 1 mg PO DAILY 07/12/22 Unknown History levothyroxine 25 mcg tablet 25 mcg PO QODAY 07/12/22 Unknown History vitamin B complex (B 1 tab PO DAILY 07/12/22 Unknown History Complex-Vitamin B12 tablet) melatonin 3 mg capsule 3 mg PO HS PRN sleep 10/13/22 Unknown History ondansetron 4 mg disintegrating 4 mg PO Q8H PRN PRN Nausea #14 tabs 08/14/23 Unknown Rx tablet sulfasalazine 500 mg 500 mg PO BID 08/14/23 Unknown History tablet,delayed release Allergy/AdvReac Type Severity Reaction Status Date / Time gluten Allergy Abd Verified 08/14/23 17:52 cramps/diarrhea Family History Mother Hearing loss Grandmother Diabetes Colon cancer PVC (premature ventricular contraction) Grandfather Diabetes Crohn's disease Heart disease Grandmother Alzheimers disease Surgical History H/O section Social History Smoking Status: Former smoker how long ago did patient quit smokin alcohol intake: current substance use type: does not use caffeine: No frequency: daily ROS ROS ED Constitutional Constitutional ED: Denies chills, fever(s) or subjective Eyes Eyes: Denies blurry vision or change in vision ENT ENT ED: Denies ear pain or sore throat Cardiovascular Cardiovascular: Denies chest pain, orthopnea, palpitations, paroxysmal nocturnal dyspnea or racing heartbeat Respiratory/Chest Respiratory/Chest: Reports cough; Denies dyspnea, dyspnea on exertion, orthopnea, paroxysmal nocturnal dyspnea or sputum Gastrointestinal Gastrointestinal: Denies abdominal pain, nausea or vomiting Integumentary Denies rash Hematologic/Lymphatic Hematologic/Lymphatic: Reports systems reviewed and no addt'l complaints, except as documented EXAM Physical Exam Const Vital Signs: 12/01/23 14:06 Temperature 97.9 F Temperature Source Temporal Pulse Rate 98 Respiratory Rate 20 H Blood Pressure 127/78 H Blood Pressure Mean 94 Pulse Ox 98 Oxygen Delivery Method Room Air Positive well nourished and well developed General Appearance ED: well developed and NAD; Negative for cyanotic, diaphoretic or pallor HEENT Reports moist mucous membranes HEENT Narrative: Ears normal. Nares patent. Posterior pharynx is normal. Eyes PERRL and EOMs intact bilaterally General Eye ED: Negative for pale conjunctiva or scleral icterus Resp normal respiratory effort and clear to auscultation bilaterally Cardio regular rate, S1 normal heart sound, S2 normal heart sound and no murmurs Extremity normal to inspection Extremity Narrative: There is no asymmetry, swelling, discoloration, leg vein distention, palpable cords or tender (more content not included)... Normal [facility] Gallbladderon 11-19-2023 Gallbladder [facility] Imaging Services [address] [place] [address] Gallbladder MR#: [id number] Acct: [id number] Name: DALLAS FARIAS Rep #: [id number] : 1985 F 38 From: Jeovany Khan DO PCP: WANG Najera Status: REG CLI Study: Gallbladder Date of Exam: 11/19/23 Exam# [id number] Ordering Dr: Nona Moreno [id number] INDICATION: GALLBLADDER DISEASE EXAMINATION: Ultrasound US Gallbladder (abdomen limited) TECHNIQUE: Colvin-scale and color Doppler imaging was performed of the abdomen. COMPARISON: FINDINGS: LIVER: There is normal echotexture measuring 16 cm. No focal hepatic lesion. No intrahepatic biliary ductal dilatation. There is no free fluid. GALLBLADDER AND BILIARY TREE: No shadowing gallstone, pericholecystic fluid or gallbladder wall thickening is demonstrated. The proximal common bile duct measures 3 mm, which is within normal limits for the patient''s age. SONOGRAPHIC POWELL''S SIGN: Negative. PANCREAS: No focal abnormality is demonstrated in the pancreas. No pancreatic ductal dilatation. RIGHT KIDNEY: 11.8 x 5.0 x 5.3 cm. The cortex is 16 mm. There is no hydronephrosis. No shadowing calculus, focal lesion, or perinephric collection is demonstrated. VESSELS: Submitted longitudinal images of the intra-abdominal aorta demonstrate no gross abnormalities and are unremarkable. The IVC is patent. US/Gallbladder IMPRESSION: No acute sonographic abnormality is demonstrated in the abdomen. Electronically Signed: Jeovany Khan DO at 23:46 EDT Reading Location ID and State: [facility] / [place] Tel [phone], Service support , CC: WANG Moreno Billposter: Signed Normal [facility] CBC W/Diff, Automatedon 08-0 Absolute Lymph 1.63 X10 3/uL Normal 0.83-4.51 [facility] Comment on above: Order Comment: PER D R ORDER TSH ABNORMAL REFLEX TO FT4 Performed By: #### L 981.8962, L500.4050, L100.0100, L500.4100 ####[facility] [address] [place], [address] Absolute Neut 2.7 X10 3/uL Normal 2.0-7.7 [facility] Comment on above: Order Comment: PER D R ORDER TSH ABNORMAL REFLEX TO FT4 Performed By: #### L 501.9520, L500.4050, L100.0100, L500.4100 ####[facility] [address] [place], [address] Basophils/100 WBC (Bld) 1.0 % Normal 0-1 [facility] Comment on above: Order Comment: PER D R ORDER TSH ABNORMAL REFLEX TO FT4 Performed By: #### L 501.9520, L500.4050, L100.0100, L500.4100 ####[facility] [address] [place], [address] Eosinophils/100 WBC (Bld) 2.6 % Normal 0-5 [facility] Comment on above: Order Comment: PER D R ORDER TSH ABNORMAL REFLEX TO FT4 Performed By: #### L 501.9520, L500.4050, L100.0100, L500.4100 ####[facility] [address] [place], [address] Erythrocyte distribution width (RBC) [Ratio] 12.9 % Normal 11.6-14.6 [facility] Comment on above: Order Comment: PER D R ORDER TSH ABNORMAL REFLEX TO FT4 Performed By: #### L 501.9520, L500.4050, L100.0100, L500.4100 ####[facility] [address] [place], [address] Hematocrit (Bld) [Volume fraction] 37.6 % Normal 37-47 [facility] Comment on above: Order Comment: PER D R ORDER TSH ABNORMAL REFLEX TO FT4 Performed By: #### L 501.9520, L500.4050, L100.0100, L500.4100 ####[facility] [address] [place], [address] Hemoglobin (Bld) [Mass/Vol] 12.2 g/dL Normal 12.0-15.0 [facility] Comment on above: Order Comment: PER D R ORDER TSH ABNORMAL REFLEX TO FT4 Performed By: #### L 501.9520, L500.4050, L100.0100, L500.4100 ####[facility] [address] [place], [address] IG% 0.400 Normal 0.0-0.9 [facility] Comment on above: Order Comment: PER D R ORDER TSH ABNORMAL REFLEX TO FT4 Result Comment: IG% - Immature Granulocytes (promyelocytes, myelocytes and metamyelocytes) > 1% indicates that a LEFT SHIFT is Present. Performed By: #### L 501.9520, L500.4050, L100.0100, L500.4100 ####[facility] [address] [place], [address] Lymphocytes/100 WBC (Bld) 32.3 % Normal 19-41 [facility] Comment on above: Order Comment: PER D R ORDER TSH ABNORMAL REFLEX TO FT4 Performed By: #### L 501.9520, L500.4050, L100.0100, L500.4100 ####[facility] [address] [place], [address] MCH (RBC) [Entitic mass] 32.1 pg High 27.0-32.0 [facility] Comment on above: Order Comment: PER D R ORDER TSH ABNORMAL REFLEX TO FT4 Performed By: #### L 501.9520, L500.4050, L100.0100, L500.4100 ####[facility] [address] [place], [address] MCHC (RBC) [Mass/Vol] 32.4 g/dL Normal 32-36 [facility] Comment on above: Order Comment: PER D R ORDER TSH ABNORMAL REFLEX TO FT4 Performed By: #### L 501.9520, L500.4050, L100.0100, L500.4100 ####[facility] [address] [place], [address] MCV (RBC) [Entitic vol] 98.9 fL Normal 81-99 [facility] Comment on above: Order Comment: PER D R ORDER TSH ABNORMAL REFLEX TO FT4 Performed By: #### L 501.9520, L500.4050, L100.0100, L500.4100 ####[facility] [address] [place], [address] Monocytes/100 WBC (Bld) 10.1 % High 0-10 [facility] Comment on above: Order Comment: PER D R ORDER TSH ABNORMAL REFLEX TO FT4 Performed By: #### L 501.9520, L500.4050, L100.0100, L500.4100 ####[facility] [address] [place], [address] Neutrophils/100 WBC (Bld) 53.6 % Normal 47-70 [facility] Comment on above: Order Comment: PER D R ORDER TSH ABNORMAL REFLEX TO FT4 Performed By: #### L 501.9520, L500.4050, L100.0100, L500.4100 ####[facility] [address] [place], [address] Nucleated RBC (Bld) [#/Vol] 0 10*3/uL Normal 0-5 [facility] Comment on above: Order Comment: PER D R ORDER TSH ABNORMAL REFLEX TO FT4 Performed By: #### L 501.9520, L500.4050, L100.0100, L500.4100 ####[facility] [address] [place], [address] Platelet mean volume (Bld) [Entitic vol] 11.1 fL Normal 6.2-12.0 [facility] Comment on above: Order Comment: PER D R ORDER TSH ABNORMAL REFLEX TO FT4 Performed By: #### L 501.9520, L500.4050, L100.0100, L500.4100 ####[facility] [address] [place], [address] Platelets (Bld) [#/Vol] 262 10*3/uL Normal 150-450 [facility] Comment on above: Order Comment: PER D R ORDER TSH ABNORMAL REFLEX TO FT4 Performed By: #### L 501.9520, L500.4050, L100.0100, L500.4100 ####[facility] [address] [place], [address] RBC (Bld) [#/Vol] 3.80 10*6/uL Low 4.2-5.4 [facility] Comment on above: Order Comment: PER D R ORDER TSH ABNORMAL REFLEX TO FT4 Performed By: #### L 501.9520, L500.4050, L100.0100, L500.4100 ####[facility] [address] [place], [address] RDW SD 46.4 fl High 35.1-43.9 [facility] Comment on above: Order Comment: PER D R ORDER TSH ABNORMAL REFLEX TO FT4 Performed By: #### L 501.9520, L500.4050, L100.0100, L500.4100 ####[facility] [address] [place], [address] WBC (Bld) [#/Vol] 5.1 10*3/uL Normal 4.4-11.0 [place] Comment on above: Order Comment: PER D R ORDER TSH ABNORMAL REFLEX TO FT4 Performed By: #### L 501.9520, L500.4050, L100.0100, L500.4100 ####[facility] [address] [place], [address] Comprehensive Metabolic Prof ilon 10-25-2023 Albumin [Mass/Vol] 3.4 g/dL Normal 3.2-5.0 [place] Comment on above: Order Comment: PER D R ORDER TSH ABNORMAL REFLEX TO FT4 Performed By: #### L 501.9520, L500.4050, L100.0100, L500.4100 ####[facility] [address] [place], [address] Albumin/Globulin [Mass ratio] 0.9 {ratio} Normal 0.9-2.4 [facility] Comment on above: Order Comment: PER D R ORDER TSH ABNORMAL REFLEX TO FT4 Performed By: #### L 501.9520, L500.4050, L100.0100, L500.4100 ####[facility] [address] [place], [address] ALK P 55 U/L Normal 45-117 [facility] Comment on above: Order Comment: PER D R ORDER TSH ABNORMAL REFLEX TO FT4 Performed By: #### L 501.9520, L500.4050, L100.0100, L500.4100 ####[facility] [address] [place], [address] ALT [Catalytic activity/Vol] 20 U/L Normal 13-56 [facility] Comment on above: Order Comment: PER D R ORDER TSH ABNORMAL REFLEX TO FT4 Performed By: #### L 501.9520, L500.4050, L100.0100, L500.4100 ####[facility] [address] [place], [address] AST [Catalytic activity/Vol] 16 U/L Normal 15-37 [facility] Comment on above: Order Comment: PER D R ORDER TSH ABNORMAL REFLEX TO FT4 Performed By: #### L 501.9520, L500.4050, L100.0100, L500.4100 ####[facility] [address] [place], [address] Bilirubin [Mass/Vol] 0.30 mg/dL Normal 0.20-1.00 [facility] Comment on above: Order Comment: PER D R ORDER TSH ABNORMAL REFLEX TO FT4 Result Comment: For patients on eltrombopag therapy, use of Dimension Roy TBIL is not recommended. Performed By: #### L 501.9520, L500.4050, L100.0100, L500.4100 ####[facility] [address] [place], [address] BUN/CRE 14.0 RATIO Normal 10-20 [facility] Comment on above: Order Comment: PER D R ORDER TSH ABNORMAL REFLEX TO FT4 Performed By: #### L 501.9520, L500.4050, L100.0100, L500.4100 ####[facility] [address] [place], [address] CA,Total 8.4 mg/dL Low 8.5-10.1 [facility] Comment on above: Order Comment: PER D R ORDER TSH ABNORMAL REFLEX TO FT4 Performed By: #### L 501.9520, L500.4050, L100.0100, L500.4100 ####[facility] [address] [place], [address] Chloride [Moles/Vol] 108 mmol/L High 98-107 [facility] Comment on above: Order Comment: PER D R ORDER TSH ABNORMAL REFLEX TO FT4 Performed By: #### L 501.9520, L500.4050, L100.0100, L500.4100 ####[facility] [address] [place], [address] CO2 [Moles/Vol] 27.0 mmol/L Normal 21.0-32.0 [facility] Comment on above: Order Comment: PER D R ORDER TSH ABNORMAL REFLEX TO FT4 Performed By: #### L 501.9520, L500.4050, L100.0100, L500.4100 ####[facility] [address] [place], [address] Creatinine [Mass/Vol] 0.79 mg/dL Normal 0.55-1.02 [facility] Comment on above: Order Comment: PER D R ORDER TSH ABNORMAL REFLEX TO FT4 Result Comment: The validity of the calculated GFR GFRAA in patients over 70 years has not been determined. Clinical correlation is essential. Performed By: #### L 501.9520, L500.4050, L100.0100, L500.4100 ####[facility] [address] [place], [address] EST GFR - AA 106 mL/min Normal >60 [facility] Comment on above: Order Comment: PER D R ORDER TSH ABNORMAL REFLEX TO FT4 Result Comment: Afri can Romanian GFR Calc Performed By: #### L 501.9520, L500.4050, L100.0100, L500.4100 ####[facility] [address] [place], [address] GAP 5 Normal 5-15 [facility] Comment on above: Order Comment: PER D R ORDER TSH ABNORMAL REFLEX TO FT4 Performed By: #### L 501.9520, L500.4050, L100.0100, L500.4100 ####[facility] [address] [place], [address] GFR/1.73 sq M.predicted among non-blacks MDRD (S/P/Bld) [Vol rate/Area] 88 mL/min/{1.73_m2} Normal >60 [facility] Comment on above: Order Comment: PER D R ORDER TSH ABNORMAL REFLEX TO FT4 Result Comment: Non- GFR Calc Performed By: #### L 501.9520, L500.4050, L100.0100, L500.4100 ####[facility] [address] [place], [address] Globulin (S) [Mass/Vol] 3.6 g/dL Normal 2.2-4.2 [facility] Comment on above: Order Comment: PER D R ORDER TSH ABNORMAL REFLEX TO FT4 Performed By: #### L 501.9520, L500.4050, L100.0100, L500.4100 ####[facility] [address] [place], [address] Glucose [Mass/Vol] 100 mg/dL Normal 74-106 [place] Comment on above: Order Comment: PER D R ORDER TSH ABNORMAL REFLEX TO FT4 Result Comment: Fast ing Glucose result from 100 to 125 mg/dL suggests IMPAIRED HOMEOSTASIS per A.D.A. criteria. Performed By: #### L 501.9520, L500.4050, L100.0100, L500.4100 ####[facility] [address] [place], [address] Potassium [Moles/Vol] 4.0 mmol/L Normal 3.5-5.1 [facility] Comment on above: Order Comment: PER D R ORDER TSH ABNORMAL REFLEX TO FT4 Performed By: #### L 501.9520, L500.4050, L100.0100, L500.4100 ####[facility] [address] [place], [address] Sodium [Moles/Vol] 140 mmol/L Normal 136-145 [place] Comment on above: Order Comment: PER D R ORDER TSH ABNORMAL REFLEX TO FT4 Performed By: #### L 501.9520, L500.4050, L100.0100, L500.4100 ####[facility] [address] [place], [address] T PROT 7.0 g/dL Normal 6.4-8.2 [facility] Comment on above: Order Comment: PER D R ORDER TSH ABNORMAL REFLEX TO FT4 Performed By: #### L 501.9520, L500.4050, L100.0100, L500.4100 ####[facility] [address] [place], [address] Urea nitrogen [Mass/Vol] 11 mg/dL Normal 7-18 [facility] Comment on above: Order Comment: PER D R ORDER TSH ABNORMAL REFLEX TO FT4 Performed By: #### L 501.9520, L500.4050, L100.0100, L500.4100 ####[facility] [address] [place], [address] Lipid Profileon 10-25-2023 Cholesterol [Mass/Vol] 163 mg/dL Normal 200 [facility] Comment on above: Order Comment: PER D R ORDER TSH ABNORMAL REFLEX TO FT4 Result Comment: <200 mg/dL Desirable 200-240 mg/dL Borderline >240 mg/dL High Risk Performed By: #### L 501.9520, L500.4050, L100.0100, L500.4100 ####[facility] [address] [place], [address] Cholesterol in HDL [Mass/Vol] 51 mg/dL Normal [facility] Comment on above: Order Comment: PER D R ORDER TSH ABNORMAL REFLEX TO FT4 Result Comment: The drugs N-Acetylcysteine and Metamizole may falsely depress this assay. Reference Range HDL <40 mg/dL Low HDL Cholesterol HDL >or= 60 mg/dL High HDL Cholesterol Performed By: #### L 501.9520, L500.4050, L100.0100, L500.4100 ####[facility] [address] [place], [address] Cholesterol in LDL [Mass/Vol] 102 mg/dL Normal 0-130 [facility] Comment on above: Order Comment: PER D R ORDER TSH ABNORMAL REFLEX TO FT4 Performed By: #### L 501.9520, L500.4050, L100.0100, L500.4100 ####[facility] [address] [place], [address] Cholesterol in VLDL [Mass/Vol] 10 mg/dL Normal 5-40 [facility] Comment on above: Order Comment: PER D R ORDER TSH ABNORMAL REFLEX TO FT4 Performed By: #### L 501.9520, L500.4050, L100.0100, L500.4100 ####[facility] [address] [place] [place], [address] Triglyceride [Mass/Vol] 50 mg/dL Normal [facility] Comment on above: Order Comment: PER D R ORDER TSH ABNORMAL REFLEX TO FT4 Result Comment: The drugs N-Acetylcysteine and Metamizole may falsely depress this assay. Serum Triglycerides Reference Interval Normal <150 mg/dL Borderline high 150 - 199 mg/dL High 200 - 499 mg/dL Very High > or = 500 mg/dL Performed By: #### L 501.9520, L500.4050, L100.0100, L500.4100 ####[facility] [address] [place], [place], [address] Thyroid Stim Hormone (TSH)on 10-25-2023 TSH 1.49 uIU/mL Normal 0.358-3.74 [facility] Comment on above: Order Comment: PER D R ORDER TSH ABNORMAL REFLEX TO FT4 Performed By: #### L 501.9520, L500.4050, L100.0100, L500.4100 ####[facility] [address] [place], [address] Absolute lymphocyte countOrd ered By: Rea Nuñez on 06-07-2023 Lymphocytes Auto (Unsp spec) [#/Vol] 2.15 10*3/uL 0.83-4.51 [facility] Automated lymphocyte count a s percentage of total leukocytesOrdered By: Rea Nuñez on 06-07-2023 Lymphocytes/100 WBC Auto (Unsp spec) 34.0 % 19-41 [facility] Basophil percentageOrdered B y: Rea Nuñez on 06-07-2023 Basophils/100 WBC (Bld) 1.3 % 0-1 [facility] Bilirubin [Mass/Vol] 0.40 mg/dL 0.20-1.00 [facility] Comment on above: For patients on eltr ombopag therapy, use of Dimension Roy TBIL is not recommended. Chloride [Moles/Vol] 109 mmol/L 98-107 [facility] Eosinophils/100 WBC (Bld) 4.1 % 0-5 [facility] Glucose [Mass/Vol] 93 mg/dL 74-106 [place] Hemoglobin (Bld) [Mass/Vol] 12.6 g/dL 12.0-15.0 [facility] Monocytes/100 WBC (Bld) 10.0 % 0-10 [facility] Neutrophils (Bld) [#/Vol] 3.2 10*3/uL 2.0-7.7 [facility] Neutrophils/100 WBC (Bld) 50.3 % 47-70 [facility] Potassium [Moles/Vol] 4.0 mmol/L 3.5-5.1 [facility] Protein [Mass/Vol] 7.0 g/dL 6.4-8.2 [place] Sodium [Moles/Vol] 139 mmol/L 136-145 [place] WBC (Bld) [#/Vol] 6.3 10*3/uL 4.4-11.0 [place] Determination of erythrocyte mean corpuscular volume (MCV)Ordered By: Rea Nuñez on 06-07-2023 MCV (RBC) [Entitic vol] 99.3 fL 81-99 [facility] Erythrocyte distribution wid th ratioOrdered By: Rea Nuñez on 06-07-2023 Erythrocyte distribution width (RBC) [Ratio] 12.7 % 11.6-14.6 [facility] Erythrocyte distribution wid th standard deviationOrdered By: Rea Nuñez on 06-07-2023 Erythrocyte distribution width (RBC) [Entitic vol] 46.5 fL 35.1-43.9 [facility] Hematocrit Auto (Bld) [Volum e fraction]Ordered By: Rea Nuñez on 06-07-2023 Hematocrit (Bld) [Volume fraction] 39.8 % 37-47 [facility] Immature granulocytes/100 WB C Auto (Bld)Ordered By: Rea Nuñez on 06-07-2023 Immature granulocytes/100 WBC (Bld) 0.300 % 0.0-0.9 [facility] Comment on above: IG% - Immature Granu locytes (promyelocytes, myelocytes and metamyelocytes) > 1% indicates that a LEFT SHIFT is Present. Laboratory - Chemistry and C hemistry - challengeOrdered By: Rea Nuñez on 06-07-2023 Albumin/Globulin [Mass ratio] 1.1 {ratio} 0.9-2.4 [facility] ALP [Catalytic activity/Vol] 54 U/L 45-117 [facility] ALT [Catalytic activity/Vol] 19 U/L 13-56 [facility] CO2 [Moles/Vol] 25.0 mmol/L 21.0-32.0 [facility] Globulin (S) [Mass/Vol] 3.4 g/dL 2.2-4.2 [facility] Urea nitrogen/Creatinine [Mass ratio] 15.5 mg/mg 10-20 [facility] Laboratory - Hematology and Cell countsOrdered By: Rea Nuñez on 06-07-2023 MCH (RBC) [Entitic mass] 31.4 pg 27.0-32.0 [facility] MCHC (RBC) [Mass/Vol] 31.7 g/dL 32-36 [facility] Nucleated RBC/100 WBC (Bld) [Ratio] 0 % 0-5 [facility] Platelet mean volume (Bld) [Entitic vol] 11.4 fL 6.2-12.0 [facility] Platelets (Bld) [#/Vol] 280 10*3/uL 150-450 [facility] No Panel InformationOrdered By: Rea Nuñez on 06-07-2023 Estimated GFR (MDRD) Amer 108 mL/min >60 [facility] Comment on above: GFR Calc Estimated GFR (MDRD) Non-Af Amer 90 mL/min >60 [facility] Comment on above: Non- GFR Calc RBC Auto (Bld) [#/Vol]Ordere d By: Rea Nuñez on 06-07-2023 RBC (Bld) [#/Vol] 4.01 10*6/uL 4.2-5.4 [facility] Serum or plasma calcium beatriz urement (mass/volume)Ordered By: Rea Nuñez on 06-07-2023 Calcium [Mass/Vol] 8.9 mg/dL 8.5-10.1 [place] Serum or plasma creatinine m easurement (mass/volume)Ordered By: Rea Nuñez on 06-07-2023 Creatinine [Mass/Vol] 0.77 mg/dL 0.55-1.02 [facility] Comment on above: The validity of the calculated GFR & GFRAA in patients over 70 years has not been determined. Clinical correlation is essential. Serum or plasma urea nitroge n measurement (mass/volume)Ordered By: Rea Nuñez on 06-07-2023 Urea nitrogen [Mass/Vol] 12 mg/dL 7-18 [facility] Thin prep Papanicolaou smear with manual screeningOrdered By: Rea Nuñez on 06-07-2023 Thin prep Papanicolaou smear with manual screening 3.6 g/dL 3.2-5.0 [facility] Thin prep Papanicolaou smear with manual screening 17 U/L 15-37 [facility] Thin prep Papanicolaou smear with manual screening 5 5-15 [facility] Absolute lymphocyte countOrd ered By: Rea Nuñez on 04-13-2023 Lymphocytes Auto (Unsp spec) [#/Vol] 1.99 10*3/uL 0.83-4.51 [facility] Automated lymphocyte count a s percentage of total leukocytesOrdered By: Rea Nuñez on 04-13-2023 Lymphocytes/100 WBC Auto (Unsp spec) 40.1 % 19-41 [facility] Basophil percentageOrdered B y: Rea Nuñez on 04-13-2023 Basophils/100 WBC (Bld) 1.2 % 0-1 [facility] Bilirubin [Mass/Vol] 0.40 mg/dL 0.20-1.00 [facility] Comment on above: For patients on eltr ombopag therapy, use of Dimension Roy TBIL is not recommended. Chloride [Moles/Vol] 107 mmol/L 98-107 [facility] Eosinophils/100 WBC (Bld) 2.8 % 0-5 [facility] Glucose [Mass/Vol] 96 mg/dL 74-106 [place] Hemoglobin (Bld) [Mass/Vol] 12.2 g/dL 12.0-15.0 [facility] Monocytes/100 WBC (Bld) 9.3 % 0-10 [facility] Neutrophils (Bld) [#/Vol] 2.3 10*3/uL 2.0-7.7 [facility] Neutrophils/100 WBC (Bld) 46.4 % 47-70 [facility] Potassium [Moles/Vol] 3.9 mmol/L 3.5-5.1 [facility] Protein [Mass/Vol] 7.1 g/dL 6.4-8.2 [place] Sodium [Moles/Vol] 137 mmol/L 136-145 [place] WBC (Bld) [#/Vol] 5.0 10*3/uL 4.4-11.0 [place] Blood erythrocytes count (nu mber/volume)Ordered By: Rea Nuñez on 04-13-2023 RBC (Bld) [#/Vol] 3.93 10*6/uL 3.77-5.28 [facility] Determination of erythrocyte mean corpuscular volume (MCV)Ordered By: Rea Nuñez on 04-13-2023 MCV (RBC) [Entitic vol] 97.7 fL 81-99 [facility] Erythrocyte distribution wid th ratioOrdered By: Rea Nuñez on 04-13-2023 Erythrocyte distribution width (RBC) [Ratio] 12.8 % 11.6-14.6 [facility] Erythrocyte distribution wid th standard deviationOrdered By: Rea Joaquin on 04-13-2023 Erythrocyte distribution width (RBC) [Entitic vol] 45.8 fL 35.1-43.9 [facility] Erythrocyte nscltiq-1-trkybl ate dehydrogenase (enzymatic activity/mass)Ordered By: Rea Nuñez on 04-13-2023 G6PD (RBC) [Catalytic activity/Mass] 263 010-427 [facility] Comment on above: Result Units: U/10E1 2 RBCWhen decreased, G-6-PD, Quant. values are associated withacute hemolytic anemia when deficient individuals areexposed to oxidative stress, such as with certainmedications (e.g., primaquine), infection, or ingestion offava beans. Caution: In patients with acute hemolysis(e.g., abnormally low RBC values), testing for G-6-PD maybe falsely normal because older erythrocytes with a higherenzyme deficiency have been hemolyzed. Young erythrocytesand reticulocytes have normal or near-normal enzymeactivity. Normal values of G-6-PD may be measured forseveral weeks following a hemolytic event.Performed at: - [facility] [id number] [place], [place] [id number] Director: Marc Melton PhD, Phone: [phone] at: - [address] [id number] Director: Marie Dunham MD, Phone: [phone] Hematocrit Auto (Bld) [Volum e fraction]Ordered By: Rea Nuñez on 04-13-2023 Hematocrit (Bld) [Volume fraction] 37.9 % 37-47 [facility] Immature granulocytes/100 WB C Auto (Bld)Ordered By: Rea uNñez on 04-13-2023 Immature granulocytes/100 WBC (Bld) 0.200 % 0.0-0.9 [facility] Comment on above: IG% - Immature Granu locytes (promyelocytes, myelocytes and metamyelocytes) > 1% indicates that a LEFT SHIFT is Present. Laboratory - Chemistry and C hemistry - challengeOrdered By: Rea Nuñez on 04-13-2023 Albumin/Globulin [Mass ratio] 1.0 {ratio} 0.9-2.4 [facility] ALP [Catalytic activity/Vol] 44 U/L 45-117 [facility] ALT [Catalytic activity/Vol] 23 U/L 13-56 [facility] CO2 [Moles/Vol] 25.0 mmol/L 21.0-32.0 [facility] Globulin (S) [Mass/Vol] 3.5 g/dL 2.2-4.2 [facility] Urea nitrogen/Creatinine [Mass ratio] 15.2 mg/mg 10-20 [facility] Laboratory - Hematology and Cell countsOrdered By: Rea Nuñez on 04-13-2023 MCH (RBC) [Entitic mass] 31.4 pg 27.0-32.0 [facility] MCHC (RBC) [Mass/Vol] 32.2 g/dL 32-36 [facility] Nucleated RBC/100 WBC (Bld) [Ratio] 0 % 0-5 [facility] Platelets (Bld) [#/Vol] 250 10*3/uL 150-450 [facility] No Panel InformationOrdered By: Rea Nuñez on 04-13-2023 Estimated GFR (MDRD) Amer 106 mL/min >60 [facility] Comment on above: GFR Calc Estimated GFR (MDRD) Non-Af Amer 88 mL/min >60 [facility] Comment on above: Non- GFR Calc Platelet mean volume Arley-Ec ker (Bld) [Entitic vol]Ordered By: Rea Nuñez on 04-13-2023 Platelet mean volume (Bld) [Entitic vol] 11.9 fL 6.2-12.0 [facility] RBC Auto (Bld) [#/Vol]Ordere d By: Rea Nuñez on 04-13-2023 RBC (Bld) [#/Vol] 3.88 10*6/uL 4.2-5.4 [facility] Serum or plasma calcium beatriz urement (mass/volume)Ordered By: Rea Nuñez on 04-13-2023 Calcium [Mass/Vol] 8.8 mg/dL 8.5-10.1 [place] Serum or plasma creatinine m easurement (mass/volume)Ordered By: Rea Nuñez on 04-13-2023 Creatinine [Mass/Vol] 0.79 mg/dL 0.55-1.02 [facility] Comment on above: The validity of the calculated GFR & GFRAA in patients over 70 years has not been determined. Clinical correlation is essential. Serum or plasma urea nitroge n measurement (mass/volume)Ordered By: Rea Nuñez on 04-13-2023 Urea nitrogen [Mass/Vol] 12 mg/dL 7-18 [facility] Thin prep Papanicolaou smear with manual screeningOrdered By: Rea Nuñez on 04-13-2023 Thin prep Papanicolaou smear with manual screening 3.6 g/dL 3.2-5.0 [facility] Thin prep Papanicolaou smear with manual screening 17 U/L 15-37 [facility] Thin prep Papanicolaou smear with manual screening 5 5-15 [facility] Absolute lymphocyte countOrd ered By: Hector Salamanca on 02-26-2023 Lymphocytes Auto (Unsp spec) [#/Vol] 2.06 10*3/uL 0.83-4.51 [facility] Basophil percentageOrdered B y: Hector Salamanca on 02-26-2023 Basophils/100 WBC (Bld) 0.9 % 0-1 [facility] Bilirubin [Mass/Vol] 0.50 mg/dL 0.20-1.00 [facility] Comment on above: For patients on eltr ombopag therapy, use of Dimension Roy TBIL is not recommended. Chloride [Moles/Vol] 109 mmol/L 98-107 [facility] Eosinophils/100 WBC (Bld) 2.4 % 0-5 [facility] Glucose [Mass/Vol] 104 mg/dL 74-106 [place] Comment on above: Fasting Glucose resu lt from 100 to 125 mg/dL suggests IMPAIRED HOMEOSTASIS per A.D.A. criteria. Neutrophils (Bld) [#/Vol] 5.5 10*3/uL 2.0-7.7 [facility] Neutrophils/100 WBC (Bld) 64.4 % 47-70 [facility] Potassium [Moles/Vol] 4.8 mmol/L 3.5-5.1 [facility] Comment on above: Moderate Hemolysis, Result may be falsely increased. Protein [Mass/Vol] 7.3 g/dL 6.4-8.2 [place] Sodium [Moles/Vol] 137 mmol/L 136-145 [place] WBC (Bld) [#/Vol] 8.5 10*3/uL 4.4-11.0 [place] Blood erythrocytes count (nu mber/volume)Ordered By: Hector Salamanca on 02-26-2023 RBC (Bld) [#/Vol] 4.04 10*6/uL 4.2-5.4 [facility] Blood hemoglobin measurement (mass/volume)Ordered By: Hector Salamanca on 02-26-2023 Hemoglobin (Bld) [Mass/Vol] 12.9 g/dL 12.0-15.0 [facility] Blood lymphocytes/100 leukoc ytesOrdered By: Hector Salamanca on 02-26-2023 Lymphocytes/100 WBC (Bld) 24.3 % 19-41 [facility] Blood monocytes/100 leukocyt esOrdered By: Hector Salamanca on 02-26-2023 Monocytes/100 WBC (Bld) 7.5 % 0-10 [facility] Blood platelet mean volumeOr dered By: Hector Salamanca on 02-26-2023 Platelet mean volume (Bld) [Entitic vol] 11.3 fL 6.2-12.0 [facility] Determination of erythrocyte mean corpuscular volume (MCV)Ordered By: Hector Salamanca on 02-26-2023 MCV (RBC) [Entitic vol] 97.3 fL 81-99 [facility] Hematocrit Auto (Bld) [Volum e fraction]Ordered By: Hector Salamanca on 02-26-2023 Hematocrit (Bld) [Volume fraction] 39.3 % 37-47 [facility] Laboratory - Chemistry and C hemistry - challengeOrdered By: Hector Salamanca on 02-26-2023 ALP [Catalytic activity/Vol] 58 U/L 45-117 [facility] ALT [Catalytic activity/Vol] 23 U/L 13-56 [facility] CO2 [Moles/Vol] 26.0 mmol/L 21.0-32.0 [facility] Globulin (S) [Mass/Vol] 3.7 g/dL 2.2-4.2 [facility] Urea nitrogen/Creatinine [Mass ratio] 16.3 mg/mg 10-20 [facility] Laboratory - Hematology and Cell countsOrdered By: Hector Salamanca on 02-26-2023 Erythrocyte distribution width (RBC) [Entitic vol] 46.5 fL 35.1-43.9 [facility] Erythrocyte distribution width (RBC) [Ratio] 13.0 % 11.6-14.6 [facility] Immature granulocytes/100 WBC (Bld) 0.500 % 0.0-0.9 [facility] Comment on above: IG% - Immature Granu locytes (promyelocytes, myelocytes and metamyelocytes) > 1% indicates that a LEFT SHIFT is Present. MCH (RBC) [Entitic mass] 31.9 pg 27.0-32.0 [facility] Nucleated RBC/100 WBC (Bld) [Ratio] 0 % 0-5 [facility] MCHC Auto (RBC) [Mass/Vol]Or dered By: Hector Salamanca on 02-26-2023 MCHC (RBC) [Mass/Vol] 32.8 g/dL 32-36 [facility] No Panel InformationOrdered By: Hector Salamanca on 02-26-2023 Estimated Creatinine Clearance Calc 69.19 ml/min [facility] Estimated GFR (MDRD) Amer 83 mL/min >60 [facility] Comment on above: GFR Calc Estimated GFR (MDRD) Non-Af Amer 68 mL/min >60 [facility] Comment on above: Non- GFR Calc Platelets bldOrdered By: Byron Salamanca on 02-26-2023 Platelets (Bld) [#/Vol] 283 10*3/uL 150-450 [facility] Serum or plasma albumin beatriz urement (mass/volume)Ordered By: Hector Salamanca on 02-26-2023 Albumin [Mass/Vol] 3.6 g/dL 3.2-5.0 [place] Serum or plasma albumin/glob ulin mass ratioOrdered By: Hector Salamanca on 02-26-2023 Albumin/Globulin [Mass ratio] 1.0 {ratio} 0.9-2.4 [facility] Serum or plasma calcium beatriz urement (mass/volume)Ordered By: Hector Salamanca on 02-26-2023 Calcium [Mass/Vol] 8.3 mg/dL 8.5-10.1 [place] Serum or plasma creatinine m easurement (mass/volume)Ordered By: Hector Salamanca on 02-26-2023 Creatinine [Mass/Vol] 0.98 mg/dL 0.55-1.02 [facility] Comment on above: The validity of the calculated GFR & GFRAA in patients over 70 years has not been determined. Clinical correlation is essential. Serum or plasma urea nitroge n measurement (mass/volume)Ordered By: Hector Salamanca on 02-26-2023 Urea nitrogen [Mass/Vol] 16 mg/dL 7-18 [facility] Thin prep Papanicolaou smear with manual screeningOrdered By: Hector Salamanca on 02-26-2023 Thin prep Papanicolaou smear with manual screening 29 U/L 15-37 [facility] Comment on above: Moderate Hemolysis, Result may be falsely increased. Thin prep Papanicolaou smear with manual screening 2 5-15 [facility] Absolute lymphocyte countOrd ered By: Rea Nuñez on 01-04-2023 Lymphocytes Auto (Unsp spec) [#/Vol] 2.25 10*3/uL 0.83-4.51 [facility] Basophil percentageOrdered B y: Rea Nuñez on 01-04-2023 Basophils/100 WBC (Bld) 0.8 % 0-1 [facility] Bilirubin [Mass/Vol] 0.20 mg/dL 0.20-1.00 [facility] Comment on above: For patients on eltr ombopag therapy, use of Dimension Roy TBIL is not recommended. Chloride [Moles/Vol] 106 mmol/L 98-107 [facility] Eosinophils/100 WBC (Bld) 2.5 % 0-5 [facility] Glucose [Mass/Vol] 96 mg/dL 74-106 [place] Neutrophils (Bld) [#/Vol] 4.8 10*3/uL 2.0-7.7 [facility] Neutrophils/100 WBC (Bld) 60.5 % 47-70 [facility] Potassium [Moles/Vol] 3.8 mmol/L 3.5-5.1 [facility] Protein [Mass/Vol] 7.5 g/dL 6.4-8.2 [place] Sodium [Moles/Vol] 138 mmol/L 136-145 [place] WBC (Bld) [#/Vol] 8.0 10*3/uL 4.4-11.0 [place] Bilirubin Test strip Ql (U)O rdered By: Rea Nuñez on 01-04-2023 Bilirubin Ql (U) Negative Negative [facility] Blood erythrocytes count (nu mber/volume)Ordered By: Rea Nuñez on 01-04-2023 RBC (Bld) [#/Vol] 3.96 10*6/uL 4.2-5.4 [facility] Blood hemoglobin measurement (mass/volume)Ordered By: Rea Nuñez on 01-04-2023 Hemoglobin (Bld) [Mass/Vol] 12.9 g/dL 12.0-15.0 [facility] Blood lymphocytes/100 leukoc ytesOrdered By: Rea Nuñez on 01-04-2023 Lymphocytes/100 WBC (Bld) 28.2 % 19-41 [facility] Blood monocytes/100 leukocyt esOrdered By: Rea Nuñez on 01-04-2023 Monocytes/100 WBC (Bld) 7.6 % 0-10 [facility] Blood platelet mean volumeOr dered By: Rea Nuñez on 01-04-2023 Platelet mean volume (Bld) [Entitic vol] 12.0 fL 6.2-12.0 [facility] Determination of erythrocyte mean corpuscular volume (MCV)Ordered By: Rea Nuñez on 01-04-2023 MCV (RBC) [Entitic vol] 101.5 fL 81-99 [facility] Hematocrit Auto (Bld) [Volum e fraction]Ordered By: Rea Nuñez on 01-04-2023 Hematocrit (Bld) [Volume fraction] 40.2 % 37-47 [facility] Ketones Test strip Ql (U)Ord ered By: Rea Nuñez on 01-04-2023 Ketones Ql (U) Negative Negative [facility] Laboratory - Chemistry and C hemistry - challengeOrdered By: Rea Nuñez on 01-04-2023 ALP [Catalytic activity/Vol] 60 U/L 45-117 [facility] ALT [Catalytic activity/Vol] 28 U/L 13-56 [facility] CO2 [Moles/Vol] 25.0 mmol/L 21.0-32.0 [facility] Globulin (S) [Mass/Vol] 3.8 g/dL 2.2-4.2 [facility] Urea nitrogen/Creatinine [Mass ratio] 20.2 mg/mg 10-20 [facility] Laboratory - Hematology and Cell countsOrdered By: Rea Nuñez on 01-04-2023 Erythrocyte distribution width (RBC) [Entitic vol] 48.1 fL 35.1-43.9 [facility] Erythrocyte distribution width (RBC) [Ratio] 12.9 % 11.6-14.6 [facility] Immature granulocytes/100 WBC (Bld) 0.400 % 0.0-0.9 [facility] Comment on above: IG% - Immature Granu locytes (promyelocytes, myelocytes and metamyelocytes) > 1% indicates that a LEFT SHIFT is Present. MCH (RBC) [Entitic mass] 32.6 pg 27.0-32.0 [facility] Nucleated RBC/100 WBC (Bld) [Ratio] 0 % 0-5 [facility] MCHC Auto (RBC) [Mass/Vol]Or dered By: Rea Nuñez on 01-04-2023 MCHC (RBC) [Mass/Vol] 32.1 g/dL 32-36 [facility] Nitrite Test strip Ql (U)Ord ered By: Rea Nuñez on 01-04-2023 Nitrite Ql (U) Negative Negative [facility] No Panel InformationOrdered By: Rea Nuñez on 01-04-2023 Anti-Gliadin IgA Antibody 9 units 0-19 [facility] Comment on above: Negative 0 - 19 Weak Positive 20 - 30 Moderate to Strong Positive >30 Anti-Gliadin IgG Antibody 2 units 0-19 [facility] Comment on above: Negative 0 - 19 Weak Positive 20 - 30 Moderate to Strong Positive >30 Endomysial IgA Antibody Negative Negative [facility] Estimated GFR (MDRD) Amer 105 mL/min >60 [facility] Comment on above: GFR Calc Estimated GFR (MDRD) Non-Af Amer 87 mL/min >60 [facility] Comment on above: Non- GFR Calc Hepatitis B Surface Antigen Non-Reactive Nonreactive [facility] Hepatitis C Antibody Non-Reactive Nonreactive [facility] Comment on above: Non Reactive: < 0.8 Equivocal: >/= 0.8 to < 1.0 Reactive: >/= 1.0The CDC recommends that a reactive/equivocal HCV antibody result be followed up by the HCV Nucleic Acid Amplificationtest (587468) Miscellaneous Test Comment MAILED SPECIMEN [facility] Platelets bldOrdered By: Mer Nuñez on 01-04-2023 Platelets (Bld) [#/Vol] 279 10*3/uL 150-450 [facility] Protein Test strip Ql (U)Ord ered By: Rea Nuñez on 01-04-2023 Protein Ql (U) Negative Negative [facility] Serum hepatitis B virus surf joseph antibody IgG detectionOrdered By: Rea Nuñez on 01-04-2023 HBV surface IgG Ql (S) Reactive [facility] Comment on above: Non Reactive: Incons istent with immunity less than <10 mIU/mL Reactive: Consistent with immunity greater than or equal to 10 mIU/mL Serum or plasma IgA measurem ent (mass/volume)Ordered By: Rea Nuñez on 01-04-2023 IgA [Mass/Vol] 228 mg/dL 87-352 [facility] Comment on above: Performed at: [address] [id number] Director: Marc Melton PhD, Phone: [phone] Serum or plasma albumin beatriz urement (mass/volume)Ordered By: Rea Nuñez on 01-04-2023 Albumin [Mass/Vol] 3.7 g/dL 3.2-5.0 [place] Serum or plasma albumin/glob ulin mass ratioOrdered By: Rea Nuñez on 01-04-2023 Albumin/Globulin [Mass ratio] 1.0 {ratio} 0.9-2.4 [facility] Serum or plasma calcium beatriz urement (mass/volume)Ordered By: Rea Nuñez on 01-04-2023 Calcium [Mass/Vol] 9.0 mg/dL 8.5-10.1 [place] Serum or plasma creatinine m easurement (mass/volume)Ordered By: Rea Nuñez on 01-04-2023 Creatinine [Mass/Vol] 0.79 mg/dL 0.55-1.02 [facility] Comment on above: The validity of the calculated GFR & GFRAA in patients over 70 years has not been determined. Clinical correlation is essential. Serum or plasma urea nitroge n measurement (mass/volume)Ordered By: Rea Nuñez on 01-04-2023 Urea nitrogen [Mass/Vol] 16 mg/dL 7-18 [facility] Serum tissue transglutaminas e IgA antibody assay (units/volume)Ordered By: Rea Nuñez on 01-04-2023 tTG IgA Qn (S) <2 U/mL 0-3 [facility] Comment on above: Negative 0 - 3 Weak Positive 4 - 10 Positive >10 Tissue Transglutaminase (tTG) has been identified as the endomysial antigen. Studies have demonstr- ated that endomysial IgA antibodies have over 99% specificity for gluten sensitive enteropathy. Thin prep Papanicolaou smear with manual screeningOrdered By: Rea Nuñez on 01-04-2023 Thin prep Papanicolaou smear with manual screening 19 U/L 15-37 [facility] Thin prep Papanicolaou smear with manual screening 7 5-15 [facility] Urine blood detectionOrdered By: Rea Nuñez on 01-04-2023 RBC Ql (U) 25 /ul Negative [facility] Urine clarityOrdered By: Mer Nuñez on 01-04-2023 Clarity (U) Clear Clear [facility] Urine color determinationOrd ered By: Rea Nuñez on 01-04-2023 Color (U) Yellow Yellow [facility] Urine creatinine measurement (mass/volume)Ordered By: Rea Nuñez on 01-04-2023 Creatinine (U) [Mass/Vol] 131.00 mg/dL NO RANGE EST. [facility] Urine glucose detectionOrder ed By: Rea Nuñez on 01-04-2023 Glucose Ql (U) Normal mg/dl Normal [facility] Urine leukocyte esterase det ection by dipstickOrdered By: Rea Nuñez on 01-04-2023 Leukocyte esterase Test strip Ql (U) 100 /ul Negative [facility] Urine pHOrdered By: Rea fonseca on 01-04-2023 pH (U) 6.5 [pH] 5.0 - 8.0 [facility] Urine protein measurement (m ass/volume)Ordered By: Rea Nuñez on 01-04-2023 Protein (U) [Mass/Vol] 11.6 mg/dL 0.0-11.8 [facility] Urine protein/creatinine mas s ratioOrdered By: Rea Nuñez on 01-04-2023 Protein/Creatinine (U) [Mass ratio] 89 mg/g CRE 0-200 [facility] Urine specific gravity measu rementOrdered By: Rea Nuñez on 01-04-2023 Specific gravity (U) [Rel density] 1.020 1.002-1.030 [facility] Urobilinogen Auto test strip Ql (U)Ordered By: Rea Nuñez on 01-04-2023 Urobilinogen Ql (U) Normal mg/dl Normal [facility] No Panel InformationOrdered By: Priscilla Khan on 12-28-2022 Follicle Stimulating Hormone 4.8 mIU/mL [facility] Comment on above: NORMAL REFERENCE RAN GES FEMALE FOLLICULAR 2.3 - 12.6 mIU/mL MID-CYCLE PEAK 5.2 - 17.5 mIU/mL LUTEAL 1.7 - 12.9 mIU/mL POST-MENOPAUSAL ON MHT 5.9 - 72.8 mIU/mL NOT ON MHT 12.7 - 132.2 mlU/mL MALE 0.7 - 10.8 mIU/mL Luteinizing Hormone 3.3 mIU/mL [facility] Comment on above: NORMAL REFERENCE RAN GES FEMALE FOLLICULAR 1.9 - 26.2 mIU/mL MID-CYCLE PEAK 22.8 - 76.1 mIU/mL LUTEAL 0.6 - 16.6 mIU/mL POST-MENOPAUSAL ON MHT 1.1 - 52.4 mIU/mL NOT ON MHT 8.6 - 61.8 mIU/mL MALE 1.2 - 10.6 mIU/mL Serum or plasma 17-hydroxypr ogesterone measurement (mass/volume)Ordered By: Priscilla Khan on 12-28-2022 17-Hydroxyprogesterone [Mass/Vol] 33 ng/dL . [facility] Comment on above: Adult Female Follicu lar 15 - 70 Luteal 35 - 290Performed at: - [facility] [id number] Director: Marie Dunham MD, Phone: [phone] Serum or plasma estradiol (E 2) measurement (mass/volume)Ordered By: Priscilla Khan on 12-28-2022 E2 [Mass/Vol] 28.9 pg/mL [facility] Comment on above: NORMAL REFERENCE RAN GES FEMALE FOLLICULAR 21.4 - 164.8 pg/mL MID-CYCLE PEAK 49.9 - 367.2 pg/mL LUTEAL 40.2 - 259.0 pg/mL POST-MENOPAUSAL ON MHT <11.0 - 462.1 pg/mL NOT ON MHT <11.0 - 58.3 pg/mL MALE <11.0 - 52.5 pg/mL NOTE:[employer] HAS CONFIRMED THE DRUG FULVETRANT (FASLODEX) MAY CAUSE FALSELY ELEVATED ESTRADIOL RESULTS WHEN USING THIS TEST METHOD. IF PATIENT IS TAKING FULVESTRANT AN ALTERNATIVE METHOD SHOULD BE USED TO DETERMINE ESTRADIOL CONCENTRATION. Serum or plasma prolactin me asurement (mass/volume)Ordered By: Priscilla Khan on 12-28-2022 Prolactin [Mass/Vol] 16.3 ng/mL [facility] Comment on above: NORMAL REFERENCE RAN GES FEMALE NON- 2.2 - 30.3 ng/mL 8.1 - 347.6 ng/mL POST-MENOPAUSAL 0.7 - 31.5 ng/mL MALE 2.5 - 17.4 ng/mL Cervical or vagninal specime n microscopic examination by cytology stain (reported asOrdered By: Priscilla Khan on 12-24-2022 Cytology report Cyto stain Doc (Cvx/Vag) Comment . [facility] Comment on above: The Pap smear is a s creening test designed to aid in thedetection of premalignant and malignant conditions of theuterine cervix. It is not a diagnostic procedure andshould not be used as the sole means of detecting cervicalcancer. Both false-positive and false-negative reports dooccur. Chlamydia trachomatis rRNA d etection by probe and target amplification methodOrdered By: Priscilla Khan on 12-24-2022 C. trachomatis rRNA ENRIQUE+probe Ql (Unsp spec) Negative Negative [facility] Detection in cervical specim en of any of human papilloma virus (HPV) 16, 18, 31, 33,Ordered By: Priscilla Khan on 12-24-2022 HPV 16+18+31+33+35+39+45+5 1+52+56+58+59+66+68 DNA Probe+sig amp Ql (Cvx) Negative Negative [facility] Comment on above: This nucleic acid am plification test detects fourteen high- risk HPV types (16,18,31,33,35,39,45,51,52,56,58,59,66,68)without differentiation. Laboratory - CytologyOrdered By: Priscilla Khan on 12-24-2022 Tile Edger Cyto stain Nom (Cvx/Vag) [ID] Comment . [facility] Comment on above: Cecilia Aburto, Cytot echnologist (ASCP) Laboratory - Microbiology an d Antimicrobial susceptibilityOrdered By: Priscilla Khan on 12-24-2022 N. gonorrhoeae DNA ENRIQUE+probe Ql (Unsp spec) Negative Negative [facility] Comment on above: Performed at: =G - [facility] [address] [id number] Director: Vicky Manley MD, Phone: [phone] Laboratory - Miscellaneous t estsOrdered By: Priscilla Khan on 12-24-2022 Service comment (Unsp spec) [Interp] Comment . [facility] Comment on above: This liquid based Th inPrep(R) pap test was screened withthe use of an image guided system. Service comment (Unsp spec) [Interp] . . [facility] Liquid-based cerv Pap + CT/G C by ENRIQUE w reflex to high-risk HPV for ASCUSOrdered By: Priscilla Khan on 12-24-2022 Cytology report Cyto stain.thin prep Doc (Cvx/Vag) Comment . [facility] Comment on above: Criteria not met, HP V Genotype not performed.Performed at: WB - [facility] [address] [id number] Director: Vicky Manley MD, Phone: [phone] at: =G - [facility] [address] [id number] Director: Vicky Manley MD, Phone: [phone] No Panel InformationOrdered By: Priscilla Khan on 12-24-2022 Pathology report final diagnosis Narrative Comment . [facility] Comment on above: NEGATIVE FOR INTRAEP ITHELIAL LESION OR MALIGNANCY. MARY-WITH REFLEX TO ENAon MARY PATTERN HOMOGENEOUS Normal [facility] Comment on above: Performed By: #### C RPH2 #### [place] [address] [place] [address] MARY TITER 1:80 Normal <1:80 [facility] Comment on above: Performed By: #### C RPH2 #### [place] [address] [place] [address] Nuclear Ab IF (S) [Titer] Positive Abnormal NEGATIVE [facility] Comment on above: Result Comment: The Antinuclear Antibody (MARY) test was performed using indirect immunofluorescence assay with HEp-2 cells slide. Performed By: #### C RPH2 #### [facility] [address] [place] [address] JENNIFER PANELon 11-11-2022 ANTI-CENTROMERE 0.3 AI [facility] Comment on above: Result Comment: REF VALUES < 1.0 = NEGATIVE >=1.0 = POSITIVE Performed By: #### E NA2 #### [facility] [address] [place] [address] ANTI-CHROMATIN <0.2 [facility] Comment on above: Result Comment: REF VALUES < 1.0 = NEGATIVE >=1.0 = POSITIVE Performed By: #### E NA2 #### [facility] [address] [place] [address] ANTI-DNA [DS] <1.0 [facility] Comment on above: Result Comment: REF VALUES NEGATIVE: <= 4 IU/ML EQUIVOCAL: 5- 9 IU/ML POSITIVE: >=10 IU/ML Performed By: #### E NA2 #### [facility] [address] [place] [address] ANTI-MODESTA-1 <0.2 [facility] Comment on above: Result Comment: REF VALUES < 1.0 = NEGATIVE >=1.0 = POSITIVE Performed By: #### E NA2 #### [facility] [address] [place] [address] ANTI-RIBOSOMAL P <0.2 [facility] Comment on above: Result Comment: REF VALUES < 1.0 = NEGATIVE >=1.0 = POSITIVE Performed By: #### E NA2 #### [facility] [address] [place] [address] ANTI-BREED TO WEAN PRODUCTION TECHNICIAN <0.2 [facility] Comment on above: Result Comment: REF VALUES < 1.0 = NEGATIVE >=1.0 = POSITIVE Performed By: #### E NA2 #### [facility] [address] [place] [address] ANTI-SCL-70 0.2 AI [facility] Comment on above: Result Comment: REF VALUES < 1.0 = NEGATIVE >=1.0 = POSITIVE Performed By: #### E NA2 #### [facility] [address] [place] [address] ANTI-SM <0.2 Normal [facility] Comment on above: Result Comment: REF VALUES < 1.0 = NEGATIVE >=1.0 = POSITIVE Performed By: #### E NA2 #### [facility] [address] [place] [address] ANTI-SM/BREED TO WEAN PRODUCTION TECHNICIAN <0.2 Normal [facility] Comment on above: Result Comment: REF VALUES < 1.0 = NEGATIVE >=1.0 = POSITIVE Performed By: #### E NA2 #### [facility] [address] [place] [address] ANTI-SSA <0.2 Normal [facility] Comment on above: Result Comment: REF VALUES < 1.0 = NEGATIVE >=1.0 = POSITIVE Performed By: #### E NA2 #### [facility] [address] [place] [address] ANTI-SSB <0.2 Normal [facility] Comment on above: Result Comment: REF VALUES < 1.0 = NEGATIVE >=1.0 = POSITIVE Performed By: #### E NA2 #### [facility] [address] [place] [address] DEAMIDATED GLIADIN PEPTIDE I GAon 11-07-2022 DEAMIDATED GLIADIN PEPTIDE IGA 4 U/mL Normal 0 - 14 [facility] Comment on above: Result Comment: Fals e negative Deamidated Gliadin Peptide Antibody, IgA results can occur in patients already adhering to a gluten-free diet or patients with IgA deficiency. Tissue Transglutaminase Antibody, IgA is the preferred test for screening patients with suspected Celiac Disease. Performed By: #### G LIGA #### [facility] [address] [place] [address] BASIC METABOLIC PANELon 10-19 Anion gap [Moles/Vol] 12 mmol/L Normal 10 - 20 [facility] Comment on above: Performed By: #### C RPH2 #### [facility] [address] [place] [address] Calcium [Mass/Vol] 8.8 mg/dL Normal 8.6 - 10.3 [facility] Comment on above: Performed By: #### C RPH2 #### [facility] [address] [place] [address] Chloride [Moles/Vol] 106 mmol/L Normal 98 - 107 [facility] Comment on above: Performed By: #### C RPH2 #### [facility] [address] [place] [address] Creatinine [Mass/Vol] 0.69 mg/dL Normal 0.50 - 1.05 [facility] Comment on above: Performed By: #### C RPH2 #### [facility] [address] [place] [address] eGFR FEMALE >90 Normal >90 [facility] Comment on above: Result Comment: CALC ULATIONS OF ESTIMATED GFR ARE PERFORMED USING THE 2020 CKD-EPI STUDY REFIT EQUATION WITHOUT THE RACE VARIABLE FOR THE IDMS-TRACEABLE CREATININE METHODS. https://jasn.asnjournals.org/content/early/ASN.73336 72173 Performed By: #### C RPH2 #### [facility] [address] [place] [address] Glucose [Mass/Vol] 91 mg/dL Normal 74 - 99 [facility] Comment on above: Performed By: #### C RPH2 #### [facility] [address] [place] [address] HCO3 (Bld) [Moles/Vol] 25 mmol/L Normal 21 - 32 [facility] Comment on above: Performed By: #### C RPH2 #### [facility] [address] [place] [address] Potassium [Moles/Vol] 4.0 mmol/L Normal 3.5 - 5.3 [facility] Comment on above: Performed By: #### C RPH2 #### [facility] [address] [place] [address] Sodium [Moles/Vol] 139 mmol/L Normal 136 - 145 [facility] Comment on above: Performed By: #### C RPH2 #### [facility] [address] [place] [address] Urea nitrogen [Mass/Vol] 11 mg/dL Normal 6 - 23 [facility] Comment on above: Performed By: #### C RPH2 #### [facility] [address] [place] [address] CBCon 11-06-2022 Erythrocyte distribution width (RBC) [Ratio] 13.1 % Normal 11.5 - 14.5 [facility] Comment on above: Performed By: #### C BC #### [address] [address] Hematocrit (Bld) [Volume fraction] 39.6 % Normal 36.0 - 46.0 [facility] Comment on above: Performed By: #### C BC #### [address] [address] Hemoglobin (Bld) [Mass/Vol] 12.8 g/dL Normal 12.0 - 16.0 [facility] Comment on above: Performed By: #### C BC #### [address] [address] MCHC (RBC) [Mass/Vol] 32.3 g/dL Normal 32.0 - 36.0 [facility] Comment on above: Performed By: #### C BC #### [address] [address] MCV (RBC) [Entitic vol] 100 fL Normal 80 - 100 [facility] Comment on above: Performed By: #### C BC #### [address] [address] Platelets (Bld) [#/Vol] 249 10*3/uL Normal 150 - 450 [facility] Comment on above: Performed By: #### C BC #### [address] [address] RBC 3.96 x10E12/L Low 4.00 - 5.20 [facility] Comment on above: Performed By: #### C BC #### [address] [address] WBC (Bld) [#/Vol] 4.6 10*3/uL Normal 4.4 - 11.3 [facility] Comment on above: Performed By: #### C BC #### [address] [address] CRP, HIGH SENSITIVITYon 10-19 CRP, HIGH SENSITIVITY 1.2 mg/L Normal [facility] Comment on above: Result Comment: hsCR P INTERPRETATION mg/L < 1.0 LOW RELATIVE RISK OF CVD 1.0-3.0 AVERAGE RELATIVE RISK OF CVD > 3.0 HIGH RELATIVE RISK OF CVD Source: ANITA T. A. et al. CIRCULATION 2003; 107:499-511. Performed By: #### C RPH2 #### [facility] [address] [place] [address] HEMOGLOBIN A1Con 11-06-2022 Glucose [Mass/Vol] 105 mg/dL Normal [facility] Comment on above: Performed By: #### H BA1E #### [address] [address] HbA1c (Bld) [Mass fraction] 5.3 % Normal [facility] Comment on above: Result Comment: Diag nosis of Diabetes-Adults Non-Diabetic: < or = 5.6% Increased risk for developing diabetes: 5.7-6.4% Diagnostic of diabetes: > or = 6.5% . Monitoring of Diabetes Age (y) Therapeutic Goal (%) Adults: >18 <7.0 Pediatrics: 13-18 <7.5 7-12 <8.0 0- 6 7.5-8.5 [place] [employer]. Diabetes Care 33(S1), Mar 2009. Performed By: #### H BA1E #### [address] [address] HEPATIC FUNCTION PANELon Albumin [Mass/Vol] 4.2 g/dL Normal 3.4 - 5.0 [facility] Comment on above: Performed By: #### C RPH2 #### [facility] [address] [place] [address] ALP [Catalytic activity/Vol] 50 U/L Normal 33 - 110 [facility] Comment on above: Performed By: #### C RPH2 #### [facility] [address] [place] [address] ALT [Catalytic activity/Vol] 19 U/L Normal 7 - 45 [facility] Comment on above: Result Comment: Cony ents treated with Sulfasalazine may generate falsely decreased results for ALT. Performed By: #### C RPH2 #### [facility] [address] [place] [address] AST [Catalytic activity/Vol] 18 U/L Normal 9 - 39 [facility] Comment on above: Performed By: #### C RPH2 #### [facility] [address] [place] [address] Bilirubin [Mass/Vol] 0.6 mg/dL Normal 0.0 - 1.2 [facility] Comment on above: Performed By: #### C RPH2 #### [facility] [address] [place] [address] Bilirubin.indirect [Mass/Vol] 0.1 mg/dL Normal 0.0 - 0.3 [facility] Comment on above: Performed By: #### C RPH2 #### [facility] [address] [place] [address] Protein [Mass/Vol] 6.7 g/dL Normal 6.4 - 8.2 [facility] Comment on above: Performed By: #### C RPH2 #### [facility] [address] [place] [address] LIPID PANEL (CORONARY RISK 2 )on 11-06-2022 Cholesterol [Mass/Vol] 171 mg/dL Normal 0 - 199 [facility] Comment on above: Result Comment: . AGE DESIRABLE BORDERLINE HIGH HIGH 0-19 Y 0 - 169 170 - 199 >/= 200 20-24 Y 0 - 189 190 - 224 >/= 225 >24 Y 0 - 199 200 - 239 >/= 240 All ranges are based on fasting samples. Specific therapeutic targets will vary based on patient-specific cardiac risk. . Pediatric guidelines reference:Pediatrics 2011, 128(S5). Adult guidelines reference: NCEP ATPIII Guidelines, AGUSTIN 2001, 258:2486-97 . Venipuncture immediately after or during the administration of Metamizole may lead to falsely low results. Testing should be performed immediately prior to Metamizole dosing. Performed By: #### L IPID #### [address] [address] Cholesterol in HDL [Mass/Vol] 56.0 mg/dL Normal [facility] Comment on above: Result Comment: . AGE VERY LOW LOW NORMAL HIGH 0-19 Y < 35 < 40 40-45 ---- 20-24 Y ---- < 40 >45 ---- >24 Y ---- < 40 40-60 >60 . Performed By: #### L IPID #### [address] [address] Cholesterol in LDL [Mass/Vol] 103 mg/dL High 0 - 99 [facility] Comment on above: Result Comment: . NEAR BORD AGE DESIRABLE OPTIMAL HIGH HIGH VERY HIGH 0-19 Y 0 - 109 --- 110-129 >/= 130 ---- 20-24 Y 0 - 119 --- 120-159 >/= 160 ---- >24 Y 0 - 99 100-129 130-159 160-189 >/=190 . Performed By: #### L IPID #### [address] [address] Cholesterol in VLDL [Mass/Vol] 12 mg/dL Normal 0 - 40 [facility] Comment on above: Performed By: #### L IPID #### [address] [address] Cholesterol.total/Chol esterol in HDL [Mass ratio] 3.1 {ratio} Normal [facility] Comment on above: Result Comment: REF VALUES DESIRABLE < 3.4 HIGH RISK > 5.0 Performed By: #### L IPID #### [address] [address] Triglyceride [Mass/Vol] 60 mg/dL Normal 0 - 149 [facility] Comment on above: Result Comment: . AGE DESIRABLE BORDERLINE HIGH HIGH VERY HIGH 0 D-90 D 19 - 174 ---- ---- ---- 91 D- 9 Y 0 - 74 75 - 99 >/= 100 ---- 10-19 Y 0 - 89 90 - 129 >/= 130 ---- 20-24 Y 0 - 114 115 - 149 >/= 150 ---- >24 Y 0 - 149 150 - 199 200- 499 >/= 500 . Venipuncture immediately after or during the administration of Metamizole may lead to falsely low results. Testing should be performed immediately prior to Metamizole dosing. Performed By: #### L IPID #### [place] [address] Lab Specimen Source Normal [facility] Comment on above: Performed By: #### L IPID #### [place] [address] Performed By: #### E SRWS #### [place] [address] Performed By: #### E NA2 #### [facility] [address] [place] [address] Performed By: #### C BC #### [place] [address] Performed By: #### T HYDS #### [place] [address] Performed By: #### M G #### [place] [address] Performed By: #### G LIGA #### [facility] [address] [place] [address] Performed By: #### C RPH2 #### [facility] [address] [place] [address] MAGNESIUMon 11-06-2022 Magnesium [Mass/Vol] 2.03 mg/dL Normal 1.60 - 2.40 [facility] Comment on above: Performed By: #### M G #### [address] [address] RHEUMATOID FACTORon 11-07-19 23 RHEUMATOID FACTOR <10 Normal 0 - 15 [facility] Comment on above: Performed By: #### C RPH2 #### [facility] [address] [place] [address] SEDIMENTATION RATE, ERYTHROC YTEon 11-06-2022 SEDIMENTATION RATE, ERYTHROCYTE 7 mm/h Normal 0 - 20 [facility] Comment on above: Performed By: #### E SRWS #### [address] [address] TSH WITH REFLEX TO FREE T4 I F ABNORMALon 11-06-2022 TSH Qn 0.87 m[IU]/L Normal 0.44 - 3.98 [facility] Comment on above: Result Comment: TSH testing is performed using different testing methodology at [facility] than at other [facility]. Direct result comparisons should only be made within the same method. Performed By: #### T HYDS #### [address] [address] US PELVIS TRANSABDOMINAL WIT H TRANSVAGINALon 11-05-2022 US PELVIS TRANSABDOMINAL WITH TRANSVAGINAL Patient Name: DALLAS FARIAS STUDY: US PELVIS TRANSABDOMINAL WITH TRANSVAGINAL; 11/05/2022 6:41 pm INDICATION: Heavy Menstrual Bleeding. COMPARISON: None. ACCESSION NUMBER(S): [id number] ORDERING CLINICIAN: WALTER HERMOSILLO TECHNIQUE: Multiple multiplanar static colvin scale, color and spectral waveform sonographic images of the pelvis were obtained. Transabdominal and endovaginal ultrasound was performed. FINDINGS: UTERUS: The uterus measures 7.8 x 2.5 x 5.4 cm in sagittal, AP, and transverse dimensions. No discrete myometrial mass identified on the provided images. ENDOMETRIUM: The central endometrial complex measures 5 mm in dual layer thickness. No fluid noted within the endometrial cavity. RIGHT ADNEXA: The right ovary measures 3.1 x 1.8 x 3.4 cm and demonstrates flow on Doppler imaging. It appears sonographically unremarkable. LEFT ADNEXA: The left ovary is not identified secondary to shadowing from overlying bowel gas. CUL DE SAC: No significant free fluid. IMPRESSION: Unremarkable sonographic appearance of the uterus and right ovary. Left ovary was not identified. Electronically signed by: AMELIA DIXON MD Normal [facility] ANTI-T4 AUTOANTIBODYon 08-19 ANTI-T4 AUTOANTIBODY Negative Normal NEGATIVE [facility] Comment on above: Result Comment: This test was developed and its analytical performance characteristics have been determined by [facility]. It has not been cleared or approved by FDA. This assay has been validated pursuant to the CLIA regulations and is used for clinical purposes. Performed by: [facility] [address] [place] [address] Linda Mcclain MD, PhD, [place], Performed By: #### T 4AUT #### [facility] [address] [place] [address] ANTI-T4 AUTOANTIBODYon 08-07 Lab Specimen Source Normal [facility] Comment on above: Performed By: #### T 4AUT #### [facility] [address] [place] [address] Basophil percentageOrdered B y: Walter Hermosillo on 07-27-2022 Basophil percentage Not Reportable [facility] Erythrocyte sedimentation ra teOrdered By: Walter Hermosillo on 07-27-2022 ESR (Bld) [Velocity] 7 mm/h 0-30 [facility] No Panel InformationOrdered By: Walter Hermosillo on 07-27-2022 Anti-Nuclear Antibody Screen Negative Negative [facility] Comment on above: Performed at: [address] [id number] Director: Marc Melton PhD, Phone: [phone] C-Reactive Protein High Sensitivity 0.68 mg/L <3.00 [facility] Comment on above: Low Relative Risk of CVD <1.0 mg/L Average Relative Risk of CVD 1.0 - 3.0 mg/L High Relative Risk of CVD >3.0 mg/L Centromere B Antibody Not Reportable [facility] Miscellaneous Test See comment [facility] Comment on above: TEST RESULT LIMITSAn tigliadin Abs, IgA Deamidated Gliadin Abs, IgA 9 units 0-19 Negative 0 - 19 Weak Positive 20 - 30 Moderate to Strong Positive >30 TESTING PERFORMED AT [facility]. ORIGINAL REPORT ON FILE IN LAB CONTAINS ADDITIONAL TEST SITE INFORMATION. TEST RESULT LIMITST3 Auto Ab Negative NEGATIVEThis test was developed and its performance characteristics have been determined by [facility]. Performance characteristics refer to the analytical performance of the test. TESTING PERFORMED AT [facility]. ORIGINAL REPORT ON FILE IN LAB CONTAINS ADDITIONAL TEST SITE INFORMATION. BREED TO WEAN PRODUCTION TECHNICIAN Antibody Not Reportable [facility] Thyroid Stimulating Hormone (TSH) 1.59 uIU/mL 0.358-3.74 [facility] Serum DNA double strand anti body assay (units/volume)Ordered By: Walter Hermosillo on 07-27-2022 DNA double strand Ab Qn (S) Not Reportable [facility] Serum Modesta-1 antibody assay (u nits/volume)Ordered By: Walter Hermosillo on 07-27-2022 Modesta-1 extractable nuclear Ab Qn (S) Not Reportable [facility] Serum Scl-70 extractable nuc lear antibody assay (units/volume)Ordered By: Walter Hermosillo on 07-27-2022 SCL-70 extractable nuclear Ab Qn (S) Not Reportable [facility] Serum Spivey extractable nucl ear antibody detectionOrdered By: Walter Hermosillo on 07-27-2022 Spivey extractable nuclear Ab Ql (S) Not Reportable [facility] Serum rheumatoid factor dete ctionOrdered By: Walter Hermosillo on 07-27-2022 Rheumatoid factor Ql (S) < 10.0 IU/mL <15 [facility] Cult, Urineon 05-10-2022 Bacteria identified Cx Nom (U) [facility] Work Phone: Laboratory - Chemistry and C hemistry - challengeon 05-10-2022 TSH Qn 1.04 m[IU]/L See Below [facility] Work Phone: Comment on above: Reference Range: 0.4 4 - 3.98 TSH testing is performed using different testing methodology at [facility] Direct result comparisons should only be made within the same method. Urinalysison 05-10-2022 Color (U) YELLOW See Below [facility] Work Phone: Comment on above: Reference Range: STR AW,YELLOW Glucose Ql (U) Negative NEGATIVE [facility] Work Phone: Ketones Ql (U) Negative NEGATIVE [facility] Work Phone: Leukocyte esterase Test strip Ql (U) TRACE Abnormal NEGATIVE [facility] Work Phone: pH (U) 7.0 [pH] 5.0 - 8.0 [facility] Work Phone: Protein (U) [Mass/Vol] Negative NEGATIVE [facility] Work Phone: RBC (U) [#/Vol] Negative NEGATIVE [facility] Work Phone: Specific gravity (U) [Rel density] 1.015 1 See Below [facility] Work Phone: Comment on above: Reference Range: 1.0 05 - 1.[address] [facility] Work Phone: Urinalysis 0.2 mg/dL 0.0 - 1.9 [facility] Work Phone: Comment on above: SOME PIGMENTS AND ME DICATIONS MAY CAUSE AFALSE POSITIVE UROBILINOGEN Urinalysis CLEAR CLEAR [facility] Work Phone: Urinalysis, Microscopicon Urinalysis, Microscopic PRESENT Abnormal [facility] Work Phone: Urinalysis, Microscopic 1+ Abnormal [facility] Work Phone: Urinalysis, Microscopic 1 {/HPF} 0-5 [facility] Work Phone: Urinalysis, Microscopic <1 0-5 [facility] Work Phone: PHQ-2 VITALSon 03-25-2022 Adult depression screening assessment No [facility] Work Phone: Fall risk assessment a) No falls within the last year [facility] Work Phone: Tobacco use status [facility] b) No [facility] Work Phone: CNOVon 11-19-2021 CNOV Office Visit (GENSWS ) DALLAS FARIAS ([id number]) 1985 F Date Time Provider Department 11/19/21 10:20 AM INGRID PEREZ During your visit today, we recorded the following information about you: Temperature Pulse Blood pressure Weight 98.7 degrees 77/minute 119/77 69.4 kg Height 1.651 m Andreea Pate 11/19/2021 10:49 AM Signed REVIEW [...] Mammogram screening? 2011 Last Colonoscopy: None Andreea Perez MD 11/23/2021 11:07 AM Signed Dallas Farias 1985 REFERRING PHYSICIAN: MD Salvador CHIEF COMPLAINT: [...] She was evaluated by GI medicine in [facility] study - 05/31/2021 - this is a [...] She was seen by general surgery at [facility] and had been scheduled for cholecystectomy. PAST MEDICAL HISTORY Diagnosis Date Asymptomatic varicose veins Disorder of thyroid History of prolactinoma IBS (irritable bowel syndrome) 2010 Non-celiac gluten sensitivity PAST SURGICAL HISTORY Procedure Laterality Date SECTION HX 2017 Cervical cryosurgery 2009 Current Outpatient Medications Medication Sig B Complex-Vitamin [...] date: 2011 Years since quittin.6 Smokeless tobacco: Neve (more content not included)... Normal [facility] Laboratory - Chemistry and C hemistry - challengeon 11-06-2021 TSH Qn 1.06 m[IU]/L See Below [facility] Work Phone: Comment on above: Reference Range: 0.4 4 - 3.98 TSH testing is performed using different testing methodology at [facility] than at other [facility]. Direct result comparisons should only be made within the same method. Vitamin D 25-Hydroxyon 11-06 25-hydroxyvitamin D3 [Mass/Vol] 44 ng/mL [facility] Work Phone: Comment on above: .DEFICIENCY: < 20 NG /MLINSUFFICIENCY: 20-29 NG/MLSUFFICIENCY: 30-100 NG/MLTHIS ASSAY ACCURATELY QUANTIFIES THE SUM OFVITAMIN D3, 25-HYDROXY AND VIT D2,25-HYDROXY. Initial Visit (General Surge ry)on 11-05-2021 Initial Visit (General Surgery) Diagnoses/Problems History of chronic cholecystitis (V12.79) (Z87.19) Biliary colic (574.20) (K80.50) Provider Impressions Ms. Farias is a 36-year-old female with biliary colic. Risks, benefits and alternatives of laparoscopic cholecystectomy were discussed with the patient. This included risk of bleeding, infection, viscous injury, conversion to an open procedure, bile leakage or bile duct injury, post-cholecystectomy diarrhea, and possible need for subsequent endoscopic or surgical interventions. We have also discussed the possibility of nonresolution or recurrence of her symptoms, particularly with question of bacterial overgrowth and gluten sensitivities from past records. That said, with a gallbladder EF of 12%, I do think she will benefit from surgery. It just may not resolve 100% of her GI issues. The patient understands this and was agreeable to proceed with surgery. She is scheduled for laparoscopic cholecystectomy on 11/10/21. Chief Complaint Postprandial abdominal pain History of Present IllnessMs. Farias is a 36-year-old female seen at the request of Walter Hermosillo PA-C, for evaluation of postprandial abdominal pain. She has had this for many years. Pain is located in the upper abdomen. She also has reflux, bloating, and heartburn. She reports having many food sensitivities. She has followed a gluten-free diet for several years. She has also been tested for small intestinal bacterial overgrowth in the past. Testing was inconclusive, but she did complete a course of antibiotics for this. She reports having some constant pain in the right upper quadrant underneath the lateral aspect of the rib. This then radiates to the epigastric region. It is elicited by eating certain foods, including greasy food and pizza as well as felix and eggs. She also has loose bowel movements with certain fluids including those already mentioned as well as dairy products. She underwent EGD on 05/22/2021, which was normal. She had an ultrasound which was normal. 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 Her only previous abdominal surgery is a . She does report having a large clot that she passed following her . BMI is 25. She has no family history of hepatobiliary disease, bleeding or clotting disorders. Review of Systems Constitutional: + Weight loss Cardiovascular: No chest pain or palpitations Respiratory: No cough or shortness of breath Gastrointestinal: + Abdominal pain, bloating, reflux, heartburn, frequent diarrhea, food sensitivities Genitourinary: no dark-colored urine, discharge from nipple, abnormal Pap smears Musculoskeletal: + Back pain Integumentary: no jaundice Neurological: no confusion Endocrine: no heat or cold intolerance Heme/Lymph: no easy bruising or bleeding Active Problems Abnormal menstrual cycle (626.9) (N92.6) Anxiety and depression (300.00,311) (F41.9,F32.A) Biliary colic (574.20) (K80.50) Assessed By: Pat Hickman (General Surgery); Last Assessed: 05 Nov 2021 Hair loss (704.00) (L65.9) Menorrhagia with regular cycle (626.2) (N92.0) 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) Psychophysiological insomnia (307.42) (F51.04) Subclinical hypothyroidism (244.8) (E03.8) Tachycardia, unspecified (785.0) (R00.0) Past Medical History History of Delivery of by section (669.70) (O82) 09/13/2016_39weeks 3days_Male_8# 2oz_Failure to progress History of HPV infection (V12.09) (Z86.19) History of Menstruation Onset age 16 years History of Pap test, as part of routine gynecological examination (V76.2) (Z01.419) 06/2020 Surgical History History of Cervical cryosurgery 2010 History of section 09/13/2016 Family History Family history of migraine headaches (V17.2) (Z82.0) Family history of osteoporosis (V17.81) (Z82.62) Family history of malignant neoplasm of colon (V16.0) (Z80.0) Family history of cardiac disorder (V17.49) (Z82.49) Family history of diabetes mellitus (V18.0) (Z83.3) Family history of thyroid disease (V18.19) (Z83.49) Social History Former smoker (V15.82) (Z87.891) No illicit drug use Patient consumes caffeinated coffee (V49.89) (Z78.9) Rarely consumes alcohol (V49.89) (Z78.9) Sexually active is in the . They are from the [place] area, but lived in [place] before moving back recently. 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 Allergies No Known Drug Allergies Recorded By: Yaz Camacho; 09/30/2021 9:04:21 AM Gluten Recorded By: Kristel Hutchinson; 10/07/2021 2:51:15 PM Current Meds Medication NameInstruction B Complex Vitamins (w/ FA) Oral Capsule Levothyroxine Sodium 25 MCG Oral TabletTAKE 1 TABLET EVERY OTHER DAY Multivitamin Oral TabletTAKE 1 TABLET DAILY. Vitamin D 25 MCG (1000 UT) Oral TabletTAKE 1 TABLET DAILY. Vitals Vital Signs Recorded: [id number] 01:37PM Heart Rate80 Qzysbybs707 Eikdxkakn44 Height5 ft 5 in Yzhgig311 lb 2 oz BMI Msoufhqumj93.15 kg/m2 (more content not included)... Normal [employer] Tobacco Screening.on 022 Fall risk assessment a) No falls within the last year [facility] Work Phone: Tobacco use status [facility] b) No [facility] Work Phone: Chart Updateon 10-26-2021 Chart Update Diagnoses/Problems Tachycardia, unspecified (785.0) (R00.0) Anxiety and depression (300.00,311) (F41.9,F32.A) Subclinical hypothyroidism (244.8) (E03.8) Chart Update patient monitor unremarkable. Contacted patient with results. Patient reports significant improvement in overall quality of life including energies, sleep, mood. Patient has not started sertraline as of yet due to these significant improvements with the every other day Synthroid. Patient will hold sertraline for now. Follow-up TSH is ordered for next week and will contact the patient at that results. Further recommendations pending follow-up TSH. 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 Menorrhagia She had recent TSH, FSH, LH, prolactin, progesterone and estrogen levels obtained which are normal. Patient was informed that options available to help with the heavy menstrual flows would be control pills, vaginal ring, patch, or IUD. Patient declines any of the hormonal contraceptives or IUD. Patient given suggestion to try taking Motrin with the onset of her menstrual flow to see if this will help decrease the heaviness of her flow. Patient to return in 1 year or as needed. Chief Complaint New patient here with c/o heavy vaginal bleeding with clots during her periods. Patient stated this is not normal for her and it started a year ago. Patient also stated she noticed the heavy flow and clots after she received the COVID vaccine 1st and 2nd dose. Patient also stated is got worst after she had COVID. LMP:09/27/21. History of Present IllnessPatient presents stating that she has noticed that [...] which was normal earlier this year in [place] prior to her moving to [place]. She is currently using condoms for contraception. She denies any bowel or bladder problems. Review of Systems Review of Systems: Constitutional: No fever or chills Respiratory: No shortness of breath, or cough Cardiovascular: No chest pain or syncope Breasts: No breast pain, no masses, no nipple discharge Gastrointestinal: No nausea, vomiting, or diarrhea, no abdominal pain Genitourinary: No dysuria or frequency Gynecology: Negative except as noted in history of present illness All other: All other systems reviewed and negative for complaint Active Problems Problems Abnormal menstrual cycle (626.9) (N92.6) Anxiety and depression (300.00,311) (F41.9,F32.A) Chronic cholecystitis (575.11) (K81.1) Hair loss (704.00) (L65.9) 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) Psychophysiological insomnia (307.42) (F51.04) Subclinical hypothyroidism (244.8) (E03.8) Tachycardia, unspecified (785.0) (R00.0) Past Medical History Problems History of Delivery of by section (669.70) (O82) 09/13/2016_39weeks 3days_Male_8# 2oz_Failure to progress History of HPV infection (V12.09) (Z86.19) History of Menstruation Onset age 16 years History of Pap test, as part of routine gynecological examination (V76.2) (Z01.419) 06/2020 Surgical History Problems History of Cervical cryosurgery 2009 History of section 09/13/2016 Family History Mother Family history of migraine headaches (V17.2) (Z82.0) Family history of osteoporosis (V17.81) (Z82.62) Maternal Grandmother Family history of malignant neoplasm of colon (V16.0) (Z80.0) Maternal Grandfather Family history of cardiac disorder (V17.49) (Z82.49) Family history of diabetes mellitus (V18.0) (Z83.3) Maternal Aunt Family history of thyroid disease (V18.19) (Z83.49) Social History Problems Former smoker (V15.82) (Z87.891) No illicit drug use Patient consumes caffeinated coffee (V49.89) (Z78.9) Rarely consumes alcohol (V49.89) (Z78.9) Sexually active Allergies Medication No Known Drug Allergies Recorded By: Yaz Camacho; 09/30/2021 9:04:21 AM NonMedication Gluten Recorded By: Kristel Hutchinson; 10/07/2021 2:51:15 PM Current Meds Medication NameInstruction B Complex Vitamins (w/ FA) Oral Capsule hydrOXYzine HCl - 25 MG Oral Tablettake 1 tab every 6 hours as needed for anxiety/insomnia/nause a Levothyroxine Sodium 25 MCG Oral TabletTAKE 1 TABLET EVERY OTHER DAY Multivitamin Oral TabletTAKE 1 TABLET DAILY. Probiotic Oral Tablet Delayed Release Sertraline HCl - 25 MG Oral TabletTAKE 1 TABLET DAILY. Vitamin D 25 MCG (1000 UT) Oral TabletTAKE 1 TABLET DAILY. Vitals Vital Signs Recorded: 07Oct2021 02:50PM Aceljuxs323 Nxptdjezl93 Height5 ft 5 in Jdfjye08.8 kg BMI Dlhzxdcimi91.24 kg/m2 BSA Calculated1.76 Tobacco Useb) No [id number] Physical Exam General: No acute distress Eye: Intraocular movements are intact HEENT: Normocephalic Respiratory: Respirations are nonlabored Gastrointestinal: Nondistended Musculoskeletal: Normal range of motion Neurologic: Alert and oriented x3 Psychiatric: Cooperative, appropriate mood and affect. Results/Data TSH WITH REFLEX TO FREE T4 IF [id number] 11:10AMNewWalter field Test NameResultFlagReferenc e Thyroid Stimulating Hormone, Serum1.25 mIU/LSee Below Reference Range: 0.44 - 3.98 TSH testing is performed using different testing methodology at [facility] than at other [facility]. Direct result comparisons sh (more content not included)... Normal [employer] [facility]iology[facility] 10-07-2021 [place] Thyroid gland Please click on the link to view the study images Normal [facility] [address] Work Phone: US Thyroid gland Normal [facility] Work Phone: Tobacco Screening.on 022 Last menstrual period start date [id number] [facility] [address] Work Phone: Tobacco use status [facility] b) No [facility] [address] Work Phone: Blood Pressure Cuff Sizeon 0 09-30-2021 Adult depression screening assessment No [facility] Work Phone: Fall risk assessment a) No falls within the last year [facility] Work Phone: Tobacco use status [facility] b) No [facility] Work Phone: Blood Pressure Cuff Size Adult [facility] Work Phone: INSULIN-LIKE GROWTH FACTOR 1 + Z-SCOREon 09-30-2021 Insulin-like growth factor-I [Mass/Vol] 266 ng/mL 82-279 [facility] Work Phone: Laboratory - Chemistry and C hemistry - challengeon 09-30-2021 Follitropin Qn 6.8 {IU/L} [facility] Work Phone: Comment on above: REF VALUESFOLLICULAR [id number] 12-25LUTEAL PHASE 2-12MENOPAUSE 30-150PREPUBERTY 50% ADULTADULT MALE 2-10INFANTS 0-1 Lutropin Qn 3.2 {IU/L} [facility] Work Phone: Comment on above: REF VALUESFOLLICULAR PHASE 1.9-12.5MID-CYCLE 8.7-76.3LUTEAL PHASE 0.5-16.9POST MENOPAUSE 5.0-55.2CHILDREN 0- 6.0ADULT MALE 18-70 1.5- 9.3ADULT MALE >70 3.1-34.6 TSH Qn 1.25 m[IU]/L See Below [facility] Work Phone: Comment on above: Reference Range: 0.4 4 - 3.98 TSH testing is performed using different testing methodology at [facility] than at other [facility]. Direct result comparisons should only be made within the same method. 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) Hair loss (704.00) (L65.9) Abnormal menstrual cycle (626.9) (N92.6) Chronic cholecystitis (575.11) (K81.1) Orders Abnormal menstrual cycle FSH + LH; Status:Active; Requested for:30Sep2021; Perform:Lab Services - Lab To Draw (Blood Test); Due:29Dec2021;Ordered; For:Abnormal menstrual cycle; Ordered By:Walter Hermosillo; Gynecology Referral Evaluation and Treatment Evaluate AND Treat Status: Active Requested for: 07Oct2021 Ordered;For: Abnormal menstrual cycle; Ordered By: Walter Hermosillo Performed: Due: 29Dec2021; Last Updated By: Nathanael Hernandes; 09/30/2021 10:01:13 AM AMA Intake Activity Log Entry by CMS ACCOUNT (INTRANET) on 2021-09-30 09:55 Status Change : Confirmed - SMN Module AMA Intake updated by CMS ACCOUNT (INTRANET) on 2021-09-30 09:55 New Recipient: Hoang Wang Appointment Date: 2021-10-07 14:45 Progesterone, Serum; Status:Active; Requested for:30Sep2021; Perform:Lab Services - Lab To Draw (Blood Test); Due:29Dec2021;Ordered; For:Abnormal menstrual cycle; Ordered By:Walter Hermosillo; Total Estrogens, Serum; Status:Active; Requested for:30Sep2021; Perform:Lab Services - Lab To Draw (Blood Test); Due:29Dec2021;Ordered; For:Abnormal menstrual cycle; Ordered By:Walter Hermosillo; Anxiety and depression Start: Sertraline HCl - 25 MG Oral Tablet (Zoloft); TAKE 1 TABLET DAILY Rx By: Walter Hermosillo; Dispense: 30 Days ; #:30 Tablet; Refill: 2;For: Anxiety and depression; JALEN = N; Verified Transmission to [facility]; Last Updated By: Eleonora Morse; 09/30/2021 9:44:19 AM Hair loss Dermatology Referral Evaluation and Treatment Evaluate AND Treat Status: Active Requested for: 22Dec2021 Ordered;For: Hair loss; Ordered By: Walter Hermosillo Performed: Due: 29Dec2021; Last Updated By: Nathanael Hernandes; 09/30/2021 10:01:03 AM AMA Intake Activity Log Entry by CMS ACCOUNT (INTRANET) on 2021-09-30 09:55 Status Change : Confirmed - SMN Module AMA Intake updated by [facility] ACCOUNT (INTRANET) on 2021-09-30 09:55 New Recipient: Angeles, Belindasis Garcia Appointment Date: 2021-12-22 14:15 Prolactinoma INSULIN-LIKE GROWTH FACTOR 1 + Z-SCORE; Status:Active; Requested for:30Sep2021; Perform:Lab Services - Lab To Draw (Blood Test); Due:05Oct2021;Ordered; For:Prolactinoma; Ordered By:Walter Hermosillo; Prolactin, Serum; Status:Active; Requested for:30Sep2021; Perform:Lab Services - Lab To Draw (Blood Test); Due:29Dec2021;Ordered; For:Prolactinoma; Ordered By:Walter Hermosillo; Psychophysiological insomnia Start: hydrOXYzine HCl - 25 MG Oral Tablet; take 1 tab every 6 hours as needed for anxiety/insomnia/nause a Rx By: Walter Hermosillo; Dispense: 0 Days ; #:30 Tablet; Refill: 2;For: Psychophysiological insomnia; JALEN = N; Verified Transmission to [facility]; Last Updated By: Zappedy; 09/30/2021 9:44:22 AM Subclinical hypothyroidism Start: Levothyroxine Sodium 25 MCG Oral Tablet (Synthroid); TAKE 1 TABLET EVERY OTHER DAY Rx By: Walter Hermosillo; Dispense: 30 Days ; #:15 Tablet; Refill: 1;For: Subclinical hypothyroidism; JALEN = N; Verified Transmission to [facility]; Last Updated By: Zappedy; 09/30/2021 9:44:14 AM TSH WITH REFLEX TO FREE T4 IF ABNORMAL; Status:Active; Requested for:30Sep2021; Perform:Lab Services - Lab To Draw (Blood Test); Due:29Dec2021;Ordered; For:Subclinical hypothyroidism; Ordered By:Walter Hermosillo; Ultrasound Thyroid; Status:Active; Requested for:06Oct2021; Perform:[facility];Ordered; For:Subclinical hypothyroidism; Ordered By:Walter Hermosillo; Radiologist to Determine Optimal Study : Y What are the patient's signs and symptoms? : subclinical hypothyroidism Tachycardia, unspecified Holter Monitor 3-14 Days; Status:Hold For - Scheduling; Requested for:[id number]; Perform:[facility]; Order Comments:7 days; Due:29Dec2021;Ordered; For:Tachycardia, unspecified; Ordered By:Walter Hermosillo; Patient Discussion/Summary Abnormal menstrual cycle: FSH, LH, estrogen, and progesterone ordered. Referral to [facility] was arranged. Anxiety and depression: Patient's history is most consistent with unchecked anxiety and depression that is quite severe. Treatment options reviewed. We will start with sertraline at low-dose and hydroxyzine at night as needed insomnia. Follow-up in 1 month Chronic cholecystitis: We will have the patient follow-up with general surgery once the other complaints are either resolved or managed. Patient agreed Hair loss and nail cracks: Likely secondary to or exacerbated by COVID plus unchecked depression/anxiety. However, referral to dermatology was made for further evaluation Prolactinoma: Prolactin ordered with IGF-I. Further recommendation (more content not included)... Normal [employer] Progesterone, Serumon 2021 Progesterone [Mass/Vol] 0.6 ng/mL [facility] Work Phone: Comment on above: REF VALUESMALE <0.3- 1.2 FOLLICULAR PHASE <0.3- 1.4 LUTEAL PHASE 3.3-25.6 MID-LUTEAL PHASE 4.4-28.0POSTMENOPAUSAL <0.3- 0.7 FEMALES: 1ST TRIMESTER 11.2- 90.0 2ND TRIMESTER 25.6- 89.4 3RD TRIMESTER 48.4-422.5 .Patients receiving DHEA-S supplements may show false elevation ofprogesterone for results near 1.0 ng/mL. Contact laboratory [phone] if alternative testing is needed. Prolactin, Serumon Prolactin [Mass/Vol] 11.6 ug/L 3.0 - 20.0 -[facility] Work Phone: Total Estrogens, Serumon Estrogen [Mass/Vol] 105 pg/mL [facility] Work Phone: Comment on above: Prepubertal < 40 Fem radha Cycle: 1-10 Days 16 - 328 11-20 Days 34 - 501 21-30 Days 48 - 350 Post-Menopausal 40 - 244 Complete Blood Count + Gerry morales 09-27-2021 Basophils/100 WBC (Bld) 1.4 % 0.0 - 2.0 [facility] Work Phone: Erythrocyte distribution width (RBC) [Ratio] 13.8 % See Below [facility] Work Phone: Comment on above: Reference Range: 11. 5 - 14.5 Hematocrit (Bld) [Volume fraction] 37.2 % See Below [facility] Work Phone: Comment on above: Reference Range: 36. 0 - 46.0 Hemoglobin (Bld) [Mass/Vol] 12.6 g/dL See Below [facility] Work Phone: Comment on above: Reference Range: 12. 0 - 16.0 Lymphocytes/100 WBC (Bld) 42.1 % See Below [facility] Work Phone: Comment on above: Reference Range: 13. 0 - 44.0 MCHC (RBC) [Mass/Vol] 33.9 g/dL See Below [facility] Work Phone: Comment on above: Reference Range: 32. 0 - 36.0 MCV (RBC) [Entitic vol] 98 fL 80 - 100 [facility] Work Phone: Monocytes/100 WBC (Bld) 8.6 % 2.0 - 10.0 [facility] Work Phone: Neutrophils/100 WBC (Bld) 42.0 % See Below [facility] Work Phone: Comment on above: Reference Range: 40. 0 - 80.0 Platelets (Bld) [#/Vol] 232 10*3/uL 150 - 450 [facility] Work Phone: RBC (Bld) [#/Vol] 3.81 {x10E12/L} below low threshold See Below [facility] Work Phone: Comment on above: Reference Range: 4.0 0 - 5.20 WBC (Bld) [#/Vol] 6.0 10*3/uL 4.4 - 11.3 [facility] Work Phone: Complete Blood Count + Differential 0.10 {x10E9/L} See Below [facility] Work Phone: Comment on above: Reference Range: 0.0 0 - 0.10 Complete Blood Count + Differential 0.40 {x10E9/L} See Below [facility] Work Phone: Comment on above: Reference Range: 0.0 0 - 0.70 Complete Blood Count + Differential 0.50 {x10E9/L} See Below [facility] Work Phone: Comment on above: Reference Range: 0.1 0 - 1.00 Complete Blood Count + Differential 2.50 {x10E9/L} See Below [facility] Work Phone: Comment on above: Reference Range: 1.2 0 - 4.80 Reference Range: 1.2 0 - 7.70 Percent differential counts (%) should be interpreted in the context of the absolute cell counts (cells/L). Complete Blood Count + Differential 5.9 % 0.0 - 6.0 [facility] Work Phone: Complete Blood Count + Differential 0.1 {/100_WBC} [facility] Work Phone: Laboratory - Chemistry and C hemistry - challengeon 09-27-2021 Glucose [Mass/Vol] 98 mg/dL 74 - 99 [facility] Work Phone: Albumin BCP dye [Mass/Vol] 3.9 g/dL 3.4 - 5.0 [facility] Work Phone: ALP [Catalytic activity/Vol] 52 U/L 33 - 110 [facility] Work Phone: ALT With P-5'-P [Catalytic activity/Vol] 16 U/L 7 - 45 [facility] Work Phone: Comment on above: Patients treated wit h Sulfasalazine may generate falsely decreased results for ALT. Anion gap [Moles/Vol] 10 mmol/L 10 - 20 [facility] Work Phone: AST With P-5'-P [Catalytic activity/Vol] 15 U/L 9 - 39 [facility] Work Phone: Bilirubin [Mass/Vol] 0.3 mg/dL 0.0 - 1.2 -[facility] Work Phone: Calcium [Mass/Vol] 8.4 mg/dL below low threshold 8.6 - 10.3 [facility] Work Phone: Chloride [Moles/Vol] 109 mmol/L above high threshold 98 - 107 [facility] Work Phone: CO2 [Moles/Vol] 25 mmol/L 21 - 32 [facility] Work Phone: Creatinine [Mass/Vol] 0.75 mg/dL See Below [facility] Work Phone: Comment on above: Reference Range: 0.5 0 - 1.05 Glucose [Mass/Vol] 94 mg/dL 74 - 99 [facility] Work Phone: Potassium [Moles/Vol] 3.5 mmol/L 3.5 - 5.3 [facility] Work Phone: Protein [Mass/Vol] 6.5 g/dL 6.4 - 8.2 [facility] Work Phone: Sodium [Moles/Vol] 140 mmol/L 136 - 145 [facility] Work Phone: TSH Qn 4.83 m[IU]/L above high threshold See Below [facility] Work Phone: Comment on above: Reference Range: 0.4 4 - 3.98 TSH testing is performed using different testing methodology at [facility] than at other [facility] Direct result comparisons should only be made within the same method. Urea nitrogen [Mass/Vol] 13 mg/dL 6 - 23 [facility] Work Phone: Magnesium, Serumon Magnesium [Mass/Vol] 2.00 mg/dL See Below -[facility] Work Phone: Comment on above: Reference Range: 1.6 0 - 2.40 No Panel Informationon 09-27 >[address] >90 [facility] Work Phone: Comment on above: CALCULATIONS OF LILIA MATED GFR ARE PERFORMED USING THE 2020 CKD-EPI STUDY REFIT EQUATION WITHOUT THE RACE VARIABLE FOR THE IDMS-TRACEABLE CREATININE METHODS.https://jasn.asnjournals.org/content/early//A .7306827253 385 {ng/mL_FEU} < or = 500 [facility] Work Phone: Comment on above: The VTE Exclusion D- Dimer assay is reported in ng/mL Fibrinogen Equivalent Units (FEU). Per manufacturers instructions for use, a value of less than 500 ng/mL (FEU) may help to exclude DVT or PE in outpatients when the assay is used with a clinical pretest probability assessment. (AE must utilize and document eCalc Wells Score Deep Vein Thrombosis Risk for DVT exclusion only; Emergency Department should utilize Guidelines for Emergency Department Use of the VTE Exclusion D-Dimer and Clinical Pretest probability assessment model for DVT or PE exclusion.) Radiologyon 09-27-2021 XR Chest Single view Normal [facility] Work Phone: T4 - Free Thyroxine, Serumon 09-27-2021 Free T4 [Mass/Vol] 0.94 ng/dL See Below [facility] Work Phone: Comment on above: Reference Range: 0.6 1 - 1.12 Thyroxine Free testing is performed using different testing methodology at [facility] than at other [facility]. Direct result comparisons should only be made within the same method.. Biotin can cause falsely elevated free T4 results. Patients taking a Biotin dose of up to 10 mg/day should refrain from taking Biotin for 24 hours before sample collection. Patient taking a Biotin dose of >10 mg/day should consult with their physician or the laboratory before the blood draw. TROPONIN I, HIGH SENSITIVITY on 09-27-2021 Tropinin I.cardiac panel High sensitivity method <3 0 - 13 [facility] Work Phone: Comment on above: .Less than 99th perc entile of normal range cutoff-Female and children under 18 years old <14 ng/L; Male <21 ng/L: NegativeRepeat testing should be performed if clinically indicated. .Female and children under 18 years old 14-50 ng/L; Male 21-50 ng/L:Consistent with possible cardiac damage and possible increased clinical risk. Serial measurements may help to assess extent of myocardial damage. .>50 ng/L: Consistent with cardiac damage, increased clinical risk andmyocardial infarction. Serial measurements may help assess extent of myocardial damage. . NOTE: Children less than 1 year old may have higher baseline troponin levels and results should be interpreted in conjunction with the overall clinical context. .NOTE: Troponin I testing is performed using a different testing methodology at [facility] than at other [facility]. Direct result comparisons should only be made within the same method. Tropinin I.cardiac panel High sensitivity method <3 0 - 13 [facility] Work Phone: Comment on above: .Less than 99th perc entile of normal range cutoff-Female and children under 18 years old <14 ng/L; Male <21 ng/L: NegativeRepeat testing should be performed if clinically indicated. .Female and children under 18 years old 14-50 ng/L; Male 21-50 ng/L:Consistent with possible cardiac damage and possible increased clinical risk. Serial measurements may help to assess extent of myocardial damage. .>50 ng/L: Consistent with cardiac damage, increased clinical risk andmyocardial infarction. Serial measurements may help assess extent of myocardial damage. . NOTE: Children less than 1 year old may have higher baseline troponin levels and results should be interpreted in conjunction with the overall clinical context. .NOTE: Troponin I testing is performed using a different testing methodology at [facility] than at other [facility]. Direct result comparisons should only be made within the same method. Tropinin I.cardiac panel High sensitivity method <3 0 - 13 [facility] Work Phone: Comment on above: .Less than 99th perc entile of normal range cutoff-Female and children under 18 years old <14 ng/L; Male <21 ng/L: NegativeRepeat testing should be performed if clinically indicated. .Female and children under 18 years old 14-50 ng/L; Male 21-50 ng/L:Consistent with possible cardiac damage and possible increased clinical risk. Serial measurements may help to assess extent of myocardial damage. .>50 ng/L: Consistent with cardiac damage, increased clinical risk andmyocardial infarction. Serial measurements may help assess extent of myocardial damage. . NOTE: Children less than 1 year old may have higher baseline troponin levels and results should be interpreted in conjunction with the overall clinical context. .NOTE: Troponin I testing is performed using a different testing methodology at [facility] than at other [facility]. Direct result comparisons should only be made within the same method. Vital Signs Date Time Vital Sign Value Performing Clinician Facility 10-19-2024 15:00-0400 Body height 162.56 cm Nona Moreno [facility] Work Phone: [facility] 10-19-2024 15:00-0400 Body mass index (BMI) [Ratio] 29 kg/m2 Nona Moreno [employer] Work Phone: [facility] 10-19-2024 15:00-0400 Body weight 76.65 kg Nona Moreno [employer] Work Phone: [facility] 10-19-2024 15:00-0400 Diastolic blood pressure 79 mm[Hg] Nona Moreno [employer] Work Phone: [facility] 10-19-2024 15:00-0400 Respiratory rate 16 /min Nona Moreno [employer] Work Phone: [facility] 10-19-2024 15:00-0400 Systolic blood pressure 118 mm[Hg] Nona Moreno [employer] Work Phone: [facility] 10-09-2024 13:53-0400 Body height 162.56 cm Nona Olsonman [employer] Work Phone: [facility] 10-09-2024 13:48-0400 Body mass index (BMI) [Ratio] 29 kg/m2 Nonaharpreet Moreno [employer] Work Phone: [facility] 10-09-2024 13:48-0400 Body weight 76.65 kg Nona Moreno [employer] Work Phone: [facility] 10-09-2024 13:48-0400 Diastolic blood pressure 70 mm[Hg] Nona Moreno [employer] Work Phone: [facility] 10-09-2024 13:48-0400 Systolic blood pressure 102 mm[Hg] Nona Moreno [employer] Work Phone: [facility] 09-27-2024 12:23-0400 Body height 162.56 cm Nona Moreno [employer] Work Phone: [facility] 09-27-2024 12:23-0400 Body temperature 98.4 [degF] Nona Moreno [employer] Work Phone: [facility] 09-27-2024 12:23-0400 Diastolic blood pressure 78 mm[Hg] Nona Moreno [employer] Work Phone: [facility] 09-27-2024 12:23-0400 Heart rate 70 /min Nona Moreno [employer] Work Phone: [facility] 09-27-2024 12:23-0400 Respiratory rate 15 /min Nona Moreno [employer] Work Phone: [facility] 09-27-2024 12:23-0400 SaO2% (BldA) [Mass fraction] 99 % Nona Moreno [employer] Work Phone: [facility] 09-27-2024 12:23-0400 Systolic blood pressure 116 mm[Hg] Nona Moreno [employer] Work Phone: [facility] 07-31-2024 13:28-0400 Body height 162.56 cm Nona Moreno [employer] Work Phone: [facility] 07-31-2024 13:28-0400 Body mass index (BMI) [Ratio] 30 kg/m2 Nona Moreno [employer] Work Phone: [facility] 07-31-2024 13:28-0400 Body weight 79.49 kg Nona Moreno [employer] Work Phone: [facility] 07-31-2024 13:28-0400 Diastolic blood pressure 72 mm[Hg] Nona Moreno [employer] Work Phone: [facility] 07-31-2024 13:28-0400 Systolic blood pressure 103 mm[Hg] Nona Moreno [employer] Work Phone: [facility] 07-30-2024 13:12-0400 Body temperature 98.2 [degF] Nona Moreno [employer] Work Phone: [facility] 07-30-2024 13:12-0400 Diastolic blood pressure 56 mm[Hg] Nona Moreno [employer] Work Phone: [facility] 07-30-2024 13:12-0400 Heart rate 77 /min Nona Moreno [employer] Work Phone: [facility] 07-30-2024 13:12-0400 Respiratory rate 14 /min Nona Moreno [employer] Work Phone: [facility] 07-30-2024 13:12-0400 SaO2% (BldA) [Mass fraction] 99 % Nona Moreno [employer] Work Phone: [facility] 07-30-2024 13:12-0400 Systolic blood pressure 110 mm[Hg] Nona Moreno [employer] Work Phone: [facility] 07-12-2024 15:09-0400 Body height 162.56 cm Nona Moreno [employer] Work Phone: [facility] 07-12-2024 15:09-0400 Body weight 79.4 kg Nona Moreno [employer] Work Phone: [facility] 07-12-2024 14:26-0400 Body temperature 99 [degF] Nona Moreno [employer] Work Phone: [facility] 07-12-2024 14:26-0400 Diastolic blood pressure 61 mm[Hg] Nona Moreno [employer] Work Phone: [facility] 07-12-2024 14:26-0400 Heart rate 74 /min Nona Moreno [employer] Work Phone: [facility] 07-12-2024 14:26-0400 Respiratory rate 17 /min Nona Moreno [employer] Work Phone: [facility] 07-12-2024 14:26-0400 SaO2% (BldA) [Mass fraction] 100 % Nona Moreno [employer] Work Phone: [facility] 07-12-2024 14:26-0400 Systolic blood pressure 110 mm[Hg] Nona Moreno KILN CLEANER-C Work Phone: [facility] 07-12-2024 03:44-0400 Body mass index (BMI) [Ratio] 30 kg/m2 Nona Moreno [employer] CLE[employer]ER[employer]C Work Phone: [facility] 07-12-2024 01:51-0400 Diastolic blood pressure 63 mm[Hg] Michael Fleming DO Work Phone: [facility] 07-12-2024 01:51-0400 Heart rate 77 /min Michael Fleming DO Work Phone: [facility] 07-12-2024 01:51-0400 Respiratory rate 16 /min Michael Fleming DO Work Phone: [facility] 07-12-2024 01:51-0400 SaO2% (BldA) [Mass fraction] 98 % Michael Fleming DO Work Phone: [facility] 07-12-2024 01:51-0400 Systolic blood pressure 123 mm[Hg] Michael Fleming DO Work Phone: [facility] 07-11-2024 20:33-0400 Body height 162.6 cm Michael Fleming DO Work Phone: [facility] 07-11-2024 20:33-0400 Body mass index (BMI) [Ratio] 30.04 kg/m2 Michael Fleming DO Work Phone: [facility] 07-11-2024 20:33-0400 Body temperature 98.01 [degF] Michael Fleming DO Work Phone: [facility] 07-11-2024 20:33-0400 Body weight 79.38 kg Michael Fleming DO Work Phone: [facility] 07-05-2024 12:40-0400 Body temperature 98.1 [degF] Nona Moreno KILN CLEANER-C Work Phone: [facility] 07-05-2024 12:40-0400 Diastolic blood pressure 77 mm[Hg] Nona Moreno KILN CLEANER-C Work Phone: [facility] 07-05-2024 12:40-0400 Heart rate 82 /min Nona Moreno KILN CLEANER-C Work Phone: [facility] 07-05-2024 12:40-0400 Respiratory rate 16 /min Nona Moreno KILN CLEANER-C Work Phone: [facility] 07-05-2024 12:40-0400 SaO2% (BldA) [Mass fraction] 100 % Nona Moreno KILN CLEANER-C Work Phone: [facility] 07-05-2024 12:40-0400 Systolic blood pressure 123 mm[Hg] Nona Moreno KILN CLEANER-C Work Phone: [facility] 07-05-2024 06:43-0400 Body height 162.56 cm Nona Moreno KILN CLEANER-C Work Phone: [facility] 07-05-2024 06:43-0400 Body mass index (BMI) [Ratio] 29.9 kg/m2 Nona Tiffanie KILN CLEANER-C Work Phone: [facility] 07-05-2024 06:43-0400 Body weight 79 kg Nona Tiffanie KILN CLEANER-C Work Phone: [facility] 06-27-2024 14:29-0400 Body mass index (BMI) [Ratio] 30.4 kg/m2 Nona Tiffanie KILN CLEANER-C Work Phone: [facility] 06-27-2024 14:29-0400 Body temperature 97.5 [degF] Nona Moreno KILN CLEANER-C Work Phone: [facility] 06-27-2024 14:29-0400 Body weight 80.28 kg Nona Tiffanie KILN CLEANER-C Work Phone: [facility] 06-27-2024 14:29-0400 Diastolic blood pressure 72 mm[Hg] Nona Moreno KILN CLEANER-C Work Phone: [facility] 06-27-2024 14:29-0400 Heart rate 63 /min Nonaharpreet Moreno KILN CLEANER-C Work Phone: [facility] 06-27-2024 14:29-0400 Respiratory rate 18 /min Nona Tiffanie KILN CLEANER-C Work Phone: [facility] 06-27-2024 14:29-0400 SaO2% (BldA) [Mass fraction] 100 % Nona Moreno KILN CLEANER-C Work Phone: [facility] 06-27-2024 14:29-0400 Systolic blood pressure 116 mm[Hg] Nona Olsonman KILN CLEANER-C Work Phone: [facility] 06-12-2024 20:16-0400 Body temperature 96.91 [degF] Eleonora Condon DO Work Phone: [facility] 06-12-2024 20:16-0400 Diastolic blood pressure 74 mm[Hg] Eleonora Condon DO Work Phone: [facility] 06-12-2024 20:16-0400 Heart rate 87 /min Eleonora Condon DO Work Phone: 3(892)[phone] [place] [address] 06-12-2024 20:16-0400 Respiratory rate 19 /min Eleonora Condon DO Work Phone: [facility] 06-12-2024 20:16-0400 SaO2% (BldA) [Mass fraction] 98 % Eleonora Condon DO Work Phone: [facility] 06-12-2024 20:16-0400 Systolic blood pressure 117 mm[Hg] Eleonora Condon DO Work Phone: 4(236)064-401942 [place] [address] 06-12-2024 16:49-0400 Body mass index (BMI) [Ratio] 30.42 kg/m2 Eleonora Condon DO Work Phone: [facility] 06-12-2024 16:49-0400 Body weight 81.65 kg Eleonora Condon DO Work Phone: [facility] 04-27-2024 15:34-0500 Body height 162.56 cm Nona Moreno KILN CLEANER-C Work Phone: [facility] 04-27-2024 08:45-0500 Body mass index (BMI) [Ratio] 31.9 kg/m2 Nona Moreno KILN CLEANER-C Work Phone: [facility] 04-27-2024 08:45-0500 Body weight 84.36 kg Nona Moreno KILN CLEANER-C Work Phone: [facility] 11-29-2023 09:54-0400 Body height 163.8 cm Delmar Joens APRN-[employer]RAZZO GRINDER Work Phone: [facility] 11-29-2023 09:54-0400 Body mass index (BMI) [Ratio] 30.42 kg/m2 Delmar Jones INFRASTRUCTURE DESIGN ENGINEER-[employer] GR[employer]ER Work Phone: [facility] 11-29-2023 09:54-0400 Body temperature 98.1 [degF] Delmar Jones INFRASTRUCTURE DESIGN ENGINEER-[employer]O GRINDER Work Phone: [facility] 11-29-2023 09:54-0400 Body weight 81.65 kg Delmar Jones INFRASTRUCTURE DESIGN ENGINEER-[employer]O GRINDER Work Phone: [facility] 11-29-2023 09:54-0400 Diastolic blood pressure 76 mm[Hg] Delmar Jones INFRASTRUCTURE DESIGN ENGINEER-[employer]O GRINDER Work Phone: [facility] 11-29-2023 09:54-0400 Heart rate 90 /min Delmar Jones INFRASTRUCTURE DESIGN ENGINEER-TERRAZZO GRINDER Work Phone: [facility] 11-29-2023 09:54-0400 Respiratory rate 16 /min Delmar Jones INFRASTRUCTURE DESIGN ENGINEER-TERRAZZO GRINDER Work Phone: [facility] 11-29-2023 09:54-0400 SaO2% (BldA) [Mass fraction] 96 % Delmar Jones INFRASTRUCTURE DESIGN ENGINEER-TERRAZZO GRINDER Work Phone: [facility] 11-29-2023 09:54-0400 Systolic blood pressure 108 mm[Hg] Delmar Jones INFRASTRUCTURE DESIGN ENGINEER-TERRAZZO GRINDER Work Phone: [facility] 02-28-2023 14:34-0500 Body height 163.8 cm Walter Newbill PA-C Work Phone: [facility] 02-28-2023 14:34-0500 Body mass index (BMI) [Ratio] 30.94 kg/m2 Walter Newbill PA-C Work Phone: [facility] 02-28-2023 14:34-0500 Body weight 83.05 kg Walter Newbill PA-C Work Phone: [facility] 02-28-2023 14:34-0500 Diastolic blood pressure 81 mm[Hg] Wlater Newbill PA-C Work Phone: [facility] 02-28-2023 14:34-0500 Heart rate 69 /min Walter Newbill PA-C Work Phone: [facility] 02-28-2023 14:34-0500 Systolic blood pressure 117 mm[Hg] Walter Newbill PA-C Work Phone: [facility] 02-26-2023 14:50-0500 Body height 162.56 cm PA Walter Newbill Work Phone: [facility] 02-26-2023 14:50-0500 Body mass index (BMI) [Ratio] 31.1 kg/m2 PA Walter Newbill Work Phone: [facility] 02-26-2023 14:50-0500 Body temperature 98.3 [degF] PA Walter Newbill Work Phone: [facility] 02-26-2023 14:50-0500 Body weight 82.3 kg PA Walter Newbill Work Phone: [facility] 02-26-2023 14:50-0500 Diastolic blood pressure 86 mm[Hg] PA Walter Newbill Work Phone: [facility] 02-26-2023 14:50-0500 Heart rate 92 /min PA Walter Newbill Work Phone: [facility] 02-26-2023 14:50-0500 Respiratory rate 14 /min PA Walter Newbill Work Phone: [facility] 02-26-2023 14:50-0500 SaO2% (BldA) [Mass fraction] 98 % PA Walter Newbill Work Phone: [facility] 02-26-2023 14:50-0500 Systolic blood pressure 123 mm[Hg] PA Walter Newbill Work Phone: [facility] 02-09-2023 11:20-0500 Body mass index (BMI) [Ratio] 30.9 kg/m2 PA Walter Newbill Work Phone: [facility] 02-09-2023 11:20-0500 Body temperature 98.2 [degF] PA Walter Newbill Work Phone: [facility] 02-09-2023 11:20-0500 Body weight 81.64 kg PA Walter Newbill Work Phone: [facility] 02-09-2023 11:20-0500 Diastolic blood pressure 83 mm[Hg] PA Walter Newbill Work Phone: [facility] 02-09-2023 11:20-0500 Heart rate 91 /min PA Walter Newbill Work Phone: [facility] 02-09-2023 11:20-0500 Respiratory rate 16 /min PA Walter Newbill Work Phone: [facility] 02-09-2023 11:20-0500 SaO2% (BldA) [Mass fraction] 98 % PA Walter Newbill Work Phone: [facility] 02-09-2023 11:20-0500 Systolic blood pressure 120 mm[Hg] PA Walter Newbill Work Phone: [facility] 12-24-2022 08:22-0400 Body height 162.56 cm PA Walter Newbill Work Phone: [facility] 12-24-2022 08:21-0400 Body mass index (BMI) [Ratio] 31.3 kg/m2 PA Walter Newbill Work Phone: [facility] 12-24-2022 08:21-0400 Body weight 82.72 kg PA Walter Newbill Work Phone: [facility] 12-24-2022 08:21-0400 Diastolic blood pressure 76 mm[Hg] PA Walter Newbill Work Phone: [facility] 12-24-2022 08:21-0400 Systolic blood pressure 110 mm[Hg] PA Walter Newbill Work Phone: [facility] 10-13-2022 16:40-0400 Body weight 82.1 kg PA Walter Newbill Work Phone: [facility] 10-13-2022 16:40-0400 Diastolic blood pressure 72 mm[Hg] PA Walter Newbill Work Phone: [facility] 10-13-2022 16:40-0400 Heart rate 73 /min PA Walter Newbill Work Phone: [facility] 10-13-2022 16:40-0400 Respiratory rate 16 /min PA Walter Newbill Work Phone: [facility] 10-13-2022 16:40-0400 Systolic blood pressure 111 mm[Hg] PA Walter Newbill Work Phone: [facility] 10-13-2022 09:39-0400 Body height 162.56 cm PA Walter Newbill Work Phone: [facility] 10-11-2022 17:05-0400 Body mass index (BMI) [Ratio] 31.6 kg/m2 PA Walter Newbill Work Phone: [facility] 10-11-2022 17:05-0400 Body temperature 99.1 [degF] PA Walter Newbill Work Phone: [facility] 10-11-2022 17:05-0400 Body weight 83.46 kg PA Walter Newbill Work Phone: [facility] 10-11-2022 17:05-0400 Heart rate 77 /min PA Walter Newbill Work Phone: [facility] 10-11-2022 17:05-0400 Respiratory rate 16 /min PA Walter Newbill Work Phone: [facility] 10-11-2022 17:05-0400 SaO2% (BldA) [Mass fraction] 99 % PA Walter Newbill Work Phone: [facility] 07-26-2022 16:25-0400 Body height 165.1 cm Walter Newbill PA-C Work Phone: [facility] 07-26-2022 16:25-0400 Body mass index (BMI) [Ratio] 29.95 kg/m2 Walter Newbill PA-C Work Phone: [facility] 07-26-2022 16:25-0400 Body weight 81.65 kg Walter Newbill PA-C Work Phone: [facility] 07-26-2022 16:25-0400 Diastolic blood pressure 75 mm[Hg] Walter Newbill PA-C Work Phone: 5([phone])[phone] [place] [address] 07-26-2022 16:25-0400 Heart rate 87 /min Walter Newbill PA-C Work Phone: [facility] 07-26-2022 16:25-0400 SaO2% (BldA) [Mass fraction] 98 % Walter Newbill PA-C Work Phone: 7(638)106-084024 [place] [address] 07-26-2022 16:25-0400 Systolic blood pressure 116 mm[Hg] Walter Newbill PA-C Work Phone: [facility] 07-12-2022 08:02-0400 Body height 162.[address] Binh Porter Work Phone: [facility] 07-12-2022 08:02-0400 Body mass index (BMI) [Ratio] 29.7 kg/m2 Dr. Binh Porter Work Phone: [facility] 07-12-2022 08:02-0400 Body weight 78.[address] Binh Porter Work Phone: [facility] 04-04-2022 11:13-0500 Body height 162.56 cm [facility] Work Phone: 04-04-2022 11:13-0500 Body mass index (BMI) [Ratio] 27.4 kg/m2 [facility] 04-04-2022 11:13-0500 Body temperature 97.4 [degF] [facility] 04-04-2022 11:13-0500 Body weight 72.57 kg [facility] 04-04-2022 11:13-0500 Diastolic blood pressure 80 mm[Hg] [facility] 04-04-2022 11:13-0500 Heart rate 90 /min [facility] 04-04-2022 11:13-0500 Respiratory rate 16 /min [facility] 04-04-2022 11:13-0500 SaO2% (BldA) [Mass fraction] 100 % [facility] 04-04-2022 11:13-0500 Systolic blood pressure 129 mm[Hg] [facility] 03-25-2022 16:22-0500 Body height 165.1 cm Walter Flakito Newbill Work Phone: [facility] Work Phone: 03-25-2022 16:22-0500 Body mass index (BMI) [Ratio] 28.04 kg/m2 Walter Flakito Newbill Work Phone: [facility] Work Phone: 03-25-2022 16:22-0500 Body surface area Derived from formula 1.84 m2 Walter Flakito Newbill Work Phone: [facility] Work Phone: 03-25-2022 16:22-0500 Body weight 76.43 kg Walter Flakito Newbill Work Phone: [facility] Work Phone: 03-25-2022 16:22-0500 Diastolic blood pressure 82 mm[Hg] Walter M Newbill Work Phone: [facility] Work Phone: 03-25-2022 16:22-0500 Heart rate 70 /min Walter Flakito Newbill Work Phone: [facility] Work Phone: 03-25-2022 16:22-0500 SaO2% (BldA) [Mass fraction] 99 % Walter M [employer] [facility] Work Phone: [facility] Work Phone: 03-25-2022 16:22-0500 Systolic blood pressure 106 mm[Hg] [facility] Work Phone: [facility] Work Phone: 11-19-2021 10:41-0400 Body height 165.1 cm Ingrid Perez MD Work Phone: [facility] 11-19-2021 10:41-0400 Body temperature 98.71 [degF] Ingrid Perez MD Work Phone: [facility] 11-19-2021 10:41-0400 Body weight 69.4 kg Ingrid Perez MD Work Phone: [facility] 11-19-2021 10:41-0400 Diastolic blood pressure 77 mm[Hg] Ingrid Perez MD Work Phone: [facility] 11-19-2021 10:41-0400 Heart rate 77 /min Ingrid Perez MD Work Phone: [facility] 11-19-2021 10:41-0400 SaO2% (BldA) [Mass fraction] 98 % Ingrid Perez MD Work Phone: [facility] 11-19-2021 10:41-0400 Systolic blood pressure 119 mm[Hg] Ingrid Perez MD Work Phone: [facility] 11-05-2021 13:37-0400 Body height 165.1 cm Walter [employer] Work Phone: [facility] Work Phone: 11-05-2021 13:37-0400 Body mass index (BMI) [Ratio] 25.15 kg/m2 Walter M [employer] Work Phone: [facility] Work Phone: 11-05-2021 13:37-0400 Body surface area Derived from formula 1.76 m2 Walter Flakito Newbill Work Phone: -[facility] Work Phone: 11-05-2021 13:37-0400 Body weight 68.55 kg Walter Flakito Newbill Work Phone: -[facility] Work Phone: 11-05-2021 13:37-0400 Diastolic blood pressure 72 mm[Hg] Walter Flakito Newbill Work Phone: -[facility] Work Phone: 11-05-2021 13:37-0400 Heart rate 80 /min Walter Flakito Newbill Work Phone: -[facility] Work Phone: 11-05-2021 13:37-0400 Systolic blood pressure 126 mm[Hg] Walter Flakito Newbill Work Phone: -[facility] Work Phone: 10-07-2021 14:50-0400 Body height 165.1 cm Walter Flakito Garciabill Work Phone: [facility] [address] Work Phone: 10-07-2021 14:50-0400 Body mass index (BMI) [Ratio] 25.24 kg/m2 Walter Flakito Newbill Work Phone: [facility] [place] [address] Work Phone: 10-07-2021 14:50-0400 Body surface area Derived from formula 1.76 m2 Walter Flakito Newbill Work Phone: [facility] [address] Work Phone: 10-07-2021 14:50-0400 Body weight 68.8 kg Walter Flakito Newbill Work Phone: [address] Work Phone: 10-07-2021 14:50-0400 Diastolic blood pressure 68 mm[Hg] Walter Flakito Newbill Work Phone: [address] Work Phone: 10-07-2021 14:50-0400 Systolic blood pressure 110 mm[Hg] Walter Flakito Newbill Work Phone: [address] Work Phone: 09-30-2021 08:53-0400 Body height 165.1 cm Walter Flakito Newbill Work Phone: [facility] Work Phone: 09-30-2021 08:53-0400 Body mass index (BMI) [Ratio] 24.96 kg/m2 Walter Flakito Newbill Work Phone: [facility] Work Phone: 09-30-2021 08:53-0400 Body surface area Derived from formula 1.75 m2 Walter Flakito Newbill Work Phone: [facility] Work Phone: 09-30-2021 08:53-0400 Body weight 68.04 kg Walter Flakito Newbill Work Phone: [facility] Work Phone: 09-30-2021 08:53-0400 Diastolic blood pressure 77 mm[Hg] Walter Flakito Newbill Work Phone: [facility] Work Phone: 09-30-2021 08:53-0400 Heart rate 77 /min Walter M Newbill Work Phone: [facility] Work Phone: 09-30-2021 08:53-0400 Systolic blood pressure 106 mm[Hg] Walter M Newbill Work Phone: [facility] Work Phone: 09-27-2021 11:30-0400 Diastolic blood pressure 75 mm[Hg] No Pcp Required [facility] 09-27-2021 11:30-0400 Heart rate 78 /min No Pcp Required [facility] 09-27-2021 11:30-0400 Respiratory rate 17 /min No Pcp Required [facility] 09-27-2021 11:30-0400 SaO2% (BldA) [Mass fraction] 100 % No Pcp Required [facility] 09-27-2021 11:30-0400 Systolic blood pressure 104 mm[Hg] No Pcp Required [facility] 09-27-2021 08:17-0400 Body height 162.5 cm No Pcp Required [facility] 09-27-2021 08:17-0400 Body temperature 97.52 [degF] No Pcp Required [facility] 09-27-2021 08:17-0400 Body weight 66 kg No Pcp Required [facility] Encounters Encounter Date Encounter Type Care Provider Facility Start: 10-19-2024 End: 10-19-2024 ambulatory Nona Moreno KILN CLEANER-C Work Phone: -[facility] Start: 10-19-2024 End: 10-19-[address] Christian Hollins MD -[facility] Work Phone: Start: 10-16-2024 Patient encounter procedure Norma Dash NP-C -[facility] Work Phone: Start: 10-16-2024 ambulatory Norma Dash KILN CLEANER Facil ity:[facility] Start: 10-09-2024 End: 10-09-2024 Patient encounter procedure Norma Dash NP-C -[facility] Work Phone: Start: 10-09-2024 End: 10-09-2024 ambulatory Nona Moreno KILN CLEANER-C Work Phone: -[facility] Start: 09-27-2024 End: 09-27-2024 ambulatory Nona Moreno KILN CLEANER-C Work Phone: -[facility] Start: 09-27-2024 End: 09-27-2024 Patient encounter procedure Gualberto Duran PA -[facility] Work Phone: Start: 09-27-2024 End: 09-27-2024 ambulatory Gualberto DESAI Facility:[facility] Start: 08-31-2024 End: 08-31-2024 ambulatory Nona Moreno KILN CLEANER-C Work Phone: [facility] Work Phone: Start: 08-31-2024 End: 08-31-[address] Rea Nuñez MD -Laboratory Work Phone: Start: 08-31-2024 End: 08-31-2024 ambulatory Rea Nuñez Facility:[facility] Start: 07-31-2024 End: 07-31-2024 Patient encounter procedure Priscilla Khan [facility] -[facility] Work Phone: Start: 07-31-2024 End: 07-31-2024 Patient encounter status Priscilla Khan [facility] Start: 07-31-2024 End: 07-31-2024 ambulatory Nona Moreno KILN CLEANER-C Work Phone: [facility] Work Phone: Start: 07-30-2024 End: 07-30-2024 Patient encounter procedure Saroj Solis PA -[facility] Work Phone: Start: 07-30-2024 End: 07-31-2024 ambulatory Priscilla Khan Facility:[facility] Start: 07-27-2024 End: 07-27-[address] Christian Hollins MD -[facility] Work Phone: Start: 07-27-2024 End: 07-27-2024 ambulatory Christian Hollins Facility:[facility] Start: 07-12-2024 Non-patient / Non-visit Dr. Sis Hollins MD -[facility] Start: 07-12-2024 ambulatory Juan Antonio Hinkle Facility: [facility] Start: 07-12-2024 End: 07-12-2024 Evaluation and management of inpatient Dr. Juan Antonio Hinkle MD -[facility] Work Phone: Start: 07-11-2024 End: 07-12-2024 Emergency department patient visit PATRICIA Cross [facility] Start: 07-11-2024 End: 07-11-2024 Subsequent hospital visit by physician Amado Orr Nonv1 [facility] Start: 07-11-2024 End: 07-12-2024 Emergency department patient visit Michael Scott Fleming DO Work Phone: [facility] Comment on above: Right upper quadrant abdominal pain (Primary Dx) Start: 07-11-2024 Encounter for other preprocedural examination Christian Hollins [facility] Start: 07-05-2024 Non-patient / Non-visit Dr. Sis Hollins MD -[facility] Start: 07-05-2024 End: 07-05-2024 Admission to same day surgery center Dr. Christian Hollins MD [facility] Start: 07-05-2024 End: 07-05-2024 ambulatory Nona Moreno NP-C Work Phone: [facility] Work Phone: Start: 06-27-2024 End: 06-27-2024 Patient encounter procedure Mercedez Miranda PA-C -[facility] Work Phone: Start: 06-27-2024 End: 06-27-2024 ambulatory Mercedez DESAI Facility:[facility] Start: 06-12-2024 End: 06-13-2024 ambulatory PATRICIA C [facility] Start: 06-12-2024 End: 06-12-2024 Subsequent hospital visit by physician Amado Orr Nonv1 [facility] Comment on above: Arrived Start: 06-12-2024 End: 06-12-2024 Emergency department patient visit Eleonora Condon DO Work Phone: [facility] Comment on above: Atypical chest pain (Primary Dx); Hypokalemia Start: 06-04-2024 End: 06-04-2024 ambulatory Nona Moreno KILN CLEANER-C Work Phone: [facility] Work Phone: Start: 06-04-2024 End: 06-04-[address] Rea Nuñez MD -Laboratory, Specimen Work Phone: Start: 06-04-2024 End: 06-04-2024 ambulatory Rea Nuñez Facility:[facility] Start: 04-30-2024 End: 04-30-2024 Patient encounter procedure Priscilla Khan CNM -[facility] Work Phone: Start: 04-30-2024 End: 04-30-2024 ambulatory Priscilla Khan Facility:[facility] Start: 04-27-2024 End: 04-27-2024 Patient encounter procedure Priscilla Khan CNM -[facility] Work Phone: Start: 04-27-2024 End: 04-27-2024 ambulatory Priscilla Khan Facility:[facility] Start: 04-13-2024 End: 04-13-[address] Rea Nuñez MD -Laboratory Work Phone: Start: 04-13-2024 End: 04-13-2024 ambulatory Rea Nuñez Facility:[facility] Start: 03-30-2024 End: 03-30-2024 Patient encounter procedure Nona PARKC -Laboratory Work Phone: Start: 03-30-2024 End: 03-30-2024 ambulatory Nona Moreno Facility:[facility] Start: 02-09-2024 ambulatory Christian Diazi lity:[facility] Start: 01-13-2024 End: 01-13-2024 ambulatory Christian Hollins Facility:[facility] Start: 12-19-2023 End: 12-19-2023 ambulatory Nona Moreno Facility:[facility] Start: 12-02-2023 End: 12-02-2023 ambulatory Rea Nuñez Facility:[facility] Start: 12-01-2023 End: 12-01-2023 Emergency department patient visit Beck Richardson Facility:[facility] Start: 11-29-2023 End: 11-29-2023 ambulatory [facility] Start: 11-29-2023 End: 11-29-2023 Patient encounter procedure Delmar Lianna Xiomara INFRASTRUCTURE DESIGN ENGINEER-[employer]ZZO GRINDER Work Phone: [facility] Comment on above: Acute bronchitis, un specified organism (Primary Dx) Start: 11-19-2023 End: 11-19-2023 ambulatory [facility] Facility:[facility] Start: 10-25-2023 End: 10-25-2023 ambulatory [facility] Facility:[facility] Start: 10-13-2023 End: 10-13-2023 ambulatory [facility] Start: 06-07-2023 End: 06-07-2023 ambulatory [facility] Work Phone: Start: 06-07-2023 End: 06-07-2023 Patient encounter procedure [facility]-Labor[facility] Work Phone: Start: 04-13-2023 End: 04-13-2023 ambulatory LLOYD Hermosillo Work Phone: [facility] Work Phone: Start: 04-13-2023 End: 04-13-2023 Patient encounter procedure LLOYD Hermosillo Work Phone: [facility]-Laboratory, [place] Work Phone: Start: 03-04-2023 End: 03-04-2023 ambulatory PA Walter Chakrabortyl Work Phone: [facility] Work Phone: Start: 03-04-2023 End: 03-04-2023 Patient encounter procedure PA Walter Hermosillo Work Phone: [facility] Work Phone: Start: 02-28-2023 End: 02-28-2023 ambulatory WALTER Fraga [facility] Ambulatory Start: 02-28-2023 End: 02-28-2023 Office outpatient visit 25 minutes Walter Hermosillo PA-C Work Phone: [facility] Comment on above: History of prolactin ruthy (Primary Dx); Acute intractable headache, unspecified headache type Start: 02-26-2023 End: 02-26-2023 Emergency department patient visit LLOYD Hermosillo Work Phone: [facility]-Emergency Department Work Phone: Start: 02-09-2023 End: 02-09-2023 Patient encounter procedure LLOYD Hermosillo Work Phone: [facility] Work Phone: Start: 01-04-2023 End: 01-04-2023 ambulatory LLOYD Hermosillo Work Phone: [facility] Work Phone: Start: 01-04-2023 End: 01-04-2023 Patient encounter procedure [facility]LOYD Hermosillo [facility] [place] Work Phone: Start: 12-28-2022 End: 12-28-2022 ambulatory LLOYD Hermosillo Work Phone: [facility] Work Phone: Start: 12-28-2022 End: 12-28-2022 Patient encounter procedure [facility]LOYD Hermosillo [facility] Start: 12-24-2022 End: 12-24-2022 Patient encounter procedure LLOYD Hermosillo [facility] Work Phone: Start: 12-24-2022 End: 12-24-2022 Patient encounter procedure LLOYD Hermosillo Work Phone: [facility] Work Phone: Start: 11-06-2022 End: 11-07-2022 ambulatory WALTER Flakito [facility] Start: 11-06-2022 End: 11-07-2022 Encounter for general adult medical examination without abnormal findings WALTER Fraga [facility] Start: 11-05-2022 ambulatory PAC WALTER HERMOSILLO Facility:[id number] Start: 10-20-2022 Non-patient / Non-visit PA Fly Chakrabortyl Work Phone: [facility] Start: 10-20-2022 End: 10-20-2022 ambulatory PA Walter Hermosillo Work Phone: [facility] Work Phone: Start: 10-20-2022 End: 10-20-2022 Patient encounter procedure PA Walter Chakrabortyl Work Phone: [facility]-Cardiovascula r Services Work Phone: Start: 10-13-2022 End: 10-13-2022 Patient encounter procedure PA Walter Chakrabortyl Work Phone: [facility] Work Phone: Start: 10-11-2022 End: 10-11-2022 Patient encounter procedure PA Walter Chakrabortyl Work Phone: [facility] Work Phone: Start: 08-26-2022 End: 08-26-2022 Discharged Recurring PA Walter Chakrabortyl Work Phone: [facility]-Physical Therapy Work Phone: Start: 08-14-2022 ambulatory PAC WALTER HERMOSILLO Facility:[id number] Start: 08-07-2022 End: 08-08-2022 ambulatory WALTER Fraga [facility] Start: 07-28-2022 ambulatory PAC WALTER HERMOSILLO Facility:[id number] Start: 07-27-2022 End: 07-27-[address] Binh Porter Work Phone: [facility] Work Phone: Start: 07-27-2022 End: 07-27-[address] Binh Porter Work Phone: [facility]-Laboratory Start: 07-26-2022 End: 07-26-2022 Office outpatient visit 25 minutes Walter Hermosillo PA-C Work Phone: [facility] Comment on above: Intermittent palpita tions (Primary Dx); Polyarthralgia; Subclinical hypothyroidism; Weight gain Start: 07-22-[address] Binh Porter Work Phone: [facility]-Physical Therapy Start: 07-12-2022 End: 07-12-[address] Binh Porter Work Phone: [facility] Start: 05-12-2022 Chart Update Walter Hermosillo Work Phone: [facility] Work Phone: Start: 05-11-2022 Chart Update Walter Hermosillo Work Phone: [facility] Work Phone: Start: 05-10-2022 AUDIT Walter Hermosillo Work Phone: [facility] Work Phone: Start: 04-04-2022 Non-patient / Non-visit Dr. Tomas Porter Work Phone: [facility] Start: 04-04-2022 End: 04-04-2022 Emergency department patient visit [facility]-Emergency Department Start: 03-25-2022 Office outpatient vi sit 25 minutes Walter Hermosillo Work Phone: [facility] Work Phone: Start: 01-22-2022 AUDIT Walter Hermosillo Work Phone: [facility] Work Phone: Start: 11-26-2021 AUDIT Walter Hermosillo Work Phone: [facility] Work Phone: Start: 11-19-2021 End: 11-19-2021 Patient encounter procedure Ingrid Perez MD Work Phone: General Surgery Comment on above: Epigastric abdominal pain (Primary Dx); Abnormal biliary HIDA scan Start: 11-05-2021 Office consultation new/estab patient 60 min Walter Hermosillo Work Phone: [facility] Work Phone: Start: 10-27-2021 AUDIT Walter Hermosillo Work Phone: [facility] Work Phone: Start: 10-26-2021 AUDIT aWlter Hermosillo Work Phone: [facility] Work Phone: Start: 10-26-2021 Image Encounter Walter Hermosillo Work Phone: [facility] Work Phone: Start: 10-08-2021 Chart Update Walter Hermosillo Work Phone: [facility] Work Phone: Start: 10-07-2021 NPV, Provider: Hoang Wang, Status: Pen, Time: 2:45 PM Walter Hermosillo Work Phone: [facility] Work Phone: Start: 10-07-2021 Office outpatient ne w 30 minutes Walter Hermosillo Work Phone: [address] Work Phone: Start: 10-06-2021 [place], Provider : KAJAL DIAGNOSTIC THERAPIST,SMCMONITOR, Status: Pen, Time: 9:00 AM Walter Hermosillo Work Phone: [facility] Work Phone: Start: 10-05-2021 Chart Update Walter Hermosillo Work Phone: [facility] Work Phone: Start: 09-30-2021 Current tobacco non- user cad cap copd pv dm Walter Hermosillo Work Phone: [facility] Work Phone: Start: 09-27-2021 End: 09-27-2021 Emergency department patient visit [facility] Emergency 03 Encounter for gynecological examination (general) (routine) without abnormal findings Walter Hermosillo Work Phone: [address] Work Phone: Comment on above: 06/2020; Procedures Date Procedure Procedure Detail Performing Clinician Start: 10-16-2024 Mammography Nona alegre [employer]C Work Phone: Start: 10-16-2024 Ultrasonography of breast Nona Moreno [employer] Work Phone: Start: 09-27-2024 Plain x-ray of wrist Rowdy Dubon [employer] Work Phone: Start: 07-31-2024 Follicle stimulating hormone measurement Nona Moreno [employer] Work Phone: Comment on above: FEMALE:Follicular: 1 .4 - 18.1 mIU/mLMidcycle: 3.4 - 33.4 mIU/mLLuteal: 1.5 - 9.1 mIU/mLPost Menopause: 23.0 - 116.3 mIU/mLMALE: 1.4 - 18.1 mIU/mL NORMAL REFERENCE RANGES FEMALE FOLLICULAR 2.3 - 12.6 mIU/mL MID-CYCLE PEAK 5.2 - 17.5 mIU/mL LUTEAL 1.7 - 12.9 mIU/mL POST-MENOPAUSAL ON MHT 5.9 - 72.8 mIU/mL NOT ON MHT 12.7 - 132.2 mlU/mL MALE 0.7 - 10.8 mIU/mL Start: 07-31-2024 Luteinizing hormone measurement Nona Moreno [employer] Work Phone: Comment on above: FEMALE:Follicular: 1 .9-12.5 mIU/mLMidcycle: 8.7-76.3 mIU/mLLuteal: 0.5-16.9 mIU/mLPost Menopause: 15.9-54.0 mIU/mLMALE:20-70 Years: 1.5-9.3 mIU/mL>70 Years: 3.1-34.6 mIU/mL Start: 07-12-2024 Radionuclide study o f abdomen Nona Moreno [employer] Work Phone: Start: 07-12-2024 Estimated creatinine clearance Nona Moreno [employer] Work Phone: Start: 07-11-2024 Assay of lactate Heavenher olman Marioderjose eduardo INFRASTRUCTURE DESIGN ENGINEER-TERRAZZO GRINDER Work Phone: Start: 07-11-2024 Urinalysis complete W Reflex Culture panel - Urine Patricia Cross Edmar INFRASTRUCTURE DESIGN ENGINEER-TERRAZZO GRINDER Work Phone: Start: 07-11-2024 Urnls dip stick/tabl et reagent auto microscopy Patricia America Fabianoderjose eduardo INFRASTRUCTURE DESIGN ENGINEER-TERRAZZO GRINDER Work Phone: Start: 07-11-2024 Ct abdomen & pelvis w/contrast material Patricia America Edmar INFRASTRUCTURE DESIGN ENGINEER-TERRAZZO GRINDER Work Phone: Start: 07-11-2024 Comprehensive metabo lic panel Patricia Cross Edmar INFRASTRUCTURE DESIGN ENGINEER-TERRAZZO GRINDER Work Phone: Start: 07-11-2024 Ecg routine ecg w/le ast 12 lds trcg only w/o i&r Patricia America Edmar INFRASTRUCTURE DESIGN ENGINEER-TERRAZZO GRINDER Work Phone: Start: 07-05-[address] procedure Nona Tiffanie [employer] Work Phone: Start: 07-05-2024 Fluoroscopic guidance K deangelo Moreno [employer] Work Phone: Start: 07-05-2024 Total cholecystectom y and exploration of common bile duct Nona Moreno [employer] CLE[employer]C Work Phone: Start: 06-12-2024 Urinalysis complete W Reflex Culture panel - Urine Patricia Hyatt INFRASTRUCTURE DESIGN ENGINEER-TERRAZZO GRINDER Work Phone: Start: 06-12-2024 Urine test visual color cmprsn meths Patricia America Bilderback INFRASTRUCTURE DESIGN ENGINEER-TERRAZZO GRINDER Work Phone: Start: 06-12-2024 Urnls dip stick/tabl et reagent auto microscopy Patricia C Fabianoderjose eduardo INFRASTRUCTURE DESIGN ENGINEER-TERRAZZO GRINDER Work Phone: Start: 06-12-2024 End: 06-12-2024 Comprehensive metabolic panel Patricia C Fabianoderjose eduardo INFRASTRUCTURE DESIGN ENGINEER-TERRAZZO GRINDER Work Phone: Start: 06-12-2024 Troponin I.cardiac p maged - Serum or Plasma by High sensitivity method Patricia Marioderjose eduardo INFRASTRUCTURE DESIGN ENGINEER-TERRAZZO GRINDER Work Phone: Start: 06-12-2024 Radiologic exam ches t 2 views Patricia America Marioderjose eduardo INFRASTRUCTURE DESIGN ENGINEER-TERRAZZO GRINDER Work Phone: Start: 06-12-2024 SARS-COV-2, INFLUENZ A A/B AND RSV PCR Patricia Marioderback INFRASTRUCTURE DESIGN ENGINEER-TERRAZZO GRINDER Work Phone: Start: 06-12-2024 Ecg routine ecg w/le ast 12 lds trcg only w/o i&r Patricia Marioderback INFRASTRUCTURE DESIGN ENGINEER-TERRAZZO GRINDER Work Phone: Start: 06-12-2024 Thyrotropin [Units/v olume] in Serum or Plasma Eleonora Condon DO Work Phone: Start: 04-30-2024 Bilateral mammography Rhea Moreno [employer]ER-C Work Phone: Start: 04-30-2024 Ultrasonography of breast Nona Moreno [employer] CLE[employer]ER-C Work Phone: Start: 04-13-2024 Measurement of renal function Nona Moreno [employer]ILN CLEANER-C Work Phone: Comment on above: GFR Calc Start: 04-03-2024 Lipid 1996 panel - S judit or Plasma Eleonora Condon DO Work Phone: Start: 03-04-2023 MRI of brain with contrast PA Walter Newbill Work Phone: Start: 11-06-2022 MARY-WITH REFLEX TO JENNIFER WALTER NEWBILL Start: 11-06-2022 ANTI-T3 AUTOANTIBODY SE AN NEWBILL Start: 11-06-2022 Basic metabolic 2000 panel - Serum or Plasma WALTER NEWBILL Start: 11-06-2022 CBC panel - Blood by Automated count WALTER NEWBILL Start: 11-06-2022 DEAMIDATED GLIADIN ANTIBODY IGA WALTER NEWBILL Start: 11-06-2022 Hemoglobin A1c/Hemoglobin.total in Blood WALTER NEWBILL Start: 11-06-2022 Hepatic function 200 0 panel - Serum or Plasma WALTER NEWBILL Start: 11-06-2022 HIGH SENSITIVITY CRP SE AN NEWBILL Start: 11-06-2022 Lipid panel WALTER NEWBI LL Start: 11-06-2022 Magnesium [Mass/volu me] in Serum or Plasma WALTER NEWBILL Start: 11-06-2022 RHEUMATOID FACTOR WALTER NEWBILL Start: 11-06-2022 SEDIMENTATION RATE, AUTOMATED WALTER NEWBILL Start: 11-06-2022 TSH WITH REFLEX TO F REE T4 IF ABNORMAL WALTER NEWBILL Start: 11-06-2022 Lipid 1996 panel - S judit or Plasma Walter Newbill PA-C Work Phone: Start: 11-06-2022 Thyrotropin [Units/v olume] in Serum or Plasma Walter Newbill PA-C Work Phone: Start: 08-07-2022 ANTI-T4 AUTOANTIBODY SE AN NEWBILL Start: 07-12-2022 Radiologic examinati on of knee Dr. Binh Porter Work Phone: Start: 09-27-2021 End: 09-27-2021 EKG impression [facility] section Walter guevara Work Phone: Comment on above: 09/13/2016; Cryosurgery of lesio n of cervix Walter Hermosillo Work Phone: Comment on above: 2009; History of cholecystectomy S/P cholecyste ctomy Dr. Christian Hollins MD Plan of Treatment Date Care Activity Detail Author Start: 2037 Zoster Vaccines (1 of 2) Zoste r Vaccines (1 of 2) [facility] Start: 04-03-2029 Lipid panel Lipid Panel [facility] Start: 11-07-2027 Lipid panel Lipid Panel [facility] Start: 06-12-2025 Thyroid stimulating hormone measurement TSH Level [facility] Start: 10-12-2024 End: 10-12-2024 Patient encounter procedure [facility] Start: 09-27-2024 Diabetes mellitus screening Diabetes Screening [facility] Start: 07-31-2024 Estradiol (E2) [Mass/volume] in Serum or Plasma [facility] Start: 07-31-2024 Follitropin and Lutr opin panel [Units/volume] - Serum or Plasma [facility] Start: 07-31-2024 T4 free measurement [facility] Start: 07-31-2024 Testosterone Free [Mass/volume] in Serum or Plasma [facility] Start: 07-31-2024 Thyroid stimulating hormone measurement [facility] Start: 07-31-2024 Triiodothyronine, fr ee measurement [facility] Start: 07-12-2024 Patient discharge [facility] Start: 07-12-2024 [facility] Start: 07-12-2024 Ambulation without limitation [facility] Start: 07-12-2024 Admission procedure [facility] Start: 07-12-2024 Following clinical p athway protocol [facility] Start: 07-05-2024 Anes intraperitoneal upper abdomen w/laps nos ANES IPER UPR ABD NOS [facility] Start: 07-05-2024 Laps surg cholecyste ctomy w/cholangiography LAPARO CHOLECYSTECTOMY/GRAPH [facility] Start: 07-05-2024 Patient discharge [facility] Start: 11-20-2023 COVID-19 Vaccine ( season) COVID-19 Vaccine ( season) [facility] Start: 11-20-2023 COVID-19 Vaccine ( season) COVID-19 Vaccine ( season) [facility] Start: 11-20-2023 Influenza vaccination Influenza Vacc ine (#1) [facility] Start: 11-07-2023 Thyroid stimulating hormone measurement TSH Level [facility] Start: 02-28-2023 End: 02-29-2024 MR Brain WO and W contrast IV MR brain w and wo IV contrast Imaging Routine History of prolactinoma Acute intractable headache, unspecified headache type Expected: 02/28/2023, Expires: 02/29/2024 [facility] Service Area Work Phone: Comment on above: Expected: 02/28/2023 , Expires: 02/29/2024 Start: 02-26-2023 [facility] Start: 07-27-2022 Procedure [facility] Start: 07-26-2022 End: 07-27-2023 C reactive protein [Mass/volume] in Serum or Plasma by High sensitivity method High sensitivity CRP Lab Routine Polyarthralgia Expected: 07/26/2022 (Approximate), Expires: 07/27/2023 [facility] Work Phone: Comment on above: Expected: 07/26/2022 (Approximate), Expires: 07/27/2023 Start: 07-26-2022 End: 07-27-2023 Erythrocyte sedimentation rate Sedimentation Rate Lab Routine Polyarthralgia Expected: 07/26/2022 (Approximate), Expires: 07/27/2023 [facility] Work Phone: Comment on above: Expected: 07/26/2022 (Approximate), Expires: 07/27/2023 Start: 07-26-2022 End: 07-27-2023 Gliadin peptide IgA Ab [Units/volume] in Serum by Immunoassay Deamidated Gliadin Antibody IgA Lab Routine Polyarthralgia Expected: 07/26/2022 (Approximate), Expires: 07/27/2023 [facility] Work Phone: Comment on above: Expected: 07/26/2022 (Approximate), Expires: 07/27/2023 Start: 07-26-2022 End: 07-27-2023 Holter monitor study Holter or Event [employer] Library Assistant Cardiac Services Routine Intermittent palpitations Expected: 07/26/2022, Expires: 07/27/2023 [facility] Service Area Work Phone: Comment on above: Expected: 07/26/2022 , Expires: 07/27/2023 Start: 07-26-2022 End: 07-27-2023 Nuclear Ab [Presence] in Serum by Hep2 substrate MARY with Reflex to JENNIFER Lab Routine Polyarthralgia Expected: 07/26/2022 (Approximate), Expires: 07/27/2023 [facility] Work Phone: Comment on above: Expected: 07/26/2022 (Approximate), Expires: 07/27/2023 Start: 07-26-2022 End: 07-27-2023 Rheumatoid factor [Units/volume] in Serum by Nephelometry Rheumatoid factor Lab Routine Polyarthralgia Expected: 07/26/2022 (Approximate), Expires: 07/27/2023 [facility] Work Phone: Comment on above: Expected: 07/26/2022 (Approximate), Expires: 07/27/2023 Start: 07-26-2022 End: 07-27-2023 Thyroxine (T4) Ab [Presence] in Serum Anti-T4 Autoantibody Lab Routine Polyarthralgia Expected: 07/26/2022 (Approximate), Expires: 07/27/2023 [facility] Work Phone: Comment on above: Expected: 07/26/2022 (Approximate), Expires: 07/27/2023 Start: 07-26-2022 End: 07-27-2023 Triiodothyronine (T3) Ab [Presence] in Serum Anti-T3 Autoantibody Lab Routine Polyarthralgia Expected: 07/26/2022 (Approximate), Expires: 07/27/2023 [facility] Work Phone: Comment on above: Expected: 07/26/2022 (Approximate), Expires: 07/27/2023 Start: 07-26-2022 End: 07-27-2023 TSH with reflex to Free T4 if abnormal TSH with reflex to Free T4 if abnormal Lab Routine Subclinical hypothyroidism Expected: 07/26/2022 (Approximate), Expires: 07/27/2023 [facility] Work Phone: Comment on above: Expected: 07/26/2022 (Approximate), Expires: 07/27/2023 Start: 07-12-2022 Patient referral [place] Work Phone: Start: 12-25-2021 Varicella vaccination [facility] Start: 11-19-2021 Influenza vaccination INFLUENZA (#1) [facility] Start: 11-10-2021 FUV, Provider: Walter Hermosillo, Status: Pen, Time: 9:30 AM FUV, Provider: Walter Hermosillo, Status: Pen, Time: 9:[address] [facility] Work Phone: Start: 11-10-2021 [facility], Provider: Pat Hickman, Status: Pen, Time: 8:30 AM [facility], Provider: Pat Hickman, Status: Pen, Time: 8:30 AM [facility] Work Phone: Start: 10-07-2021 NPV, Provider: Hoang Wang, Status: Pen, Time: 2:45 PM NPV, Provider: Hoang Wang, Status: Pen, Time: 2:45 PM [facility] Work Phone: Start: 10-06-2021 [place], Provider : KAJAL DIAGNOSTIC THERAPISTHASSL[facility]ALTH F[facility], Status: Pen, Time: 9:00 AM [place], Provider: KAJAL DIAGNOSTIC THERAPIST,[facility], Status: Pen, Time: 9:00 AM [facility] Work Phone: Start: 09-14-2020 COVID-19 VACCINE (3 - Booster for Moderna series) COVID-19 VACCINE (3 - Booster for Moderna series) [facility] Start: 2017 HPV TESTING HPV TESTING [facility] Start: 2009 DTaP/Tdap/Td Vaccine s (1 - Tdap) DTaP/Tdap/Td Vaccines (1 - Tdap) [facility] Start: 2008 PAP TESTING PAP TESTING [facility] Start: 2008 Screening for malign ant neoplasm of cervix [facility] Start: 2006 Hepatitis B Vaccines (1 of 3 - 19+ 3-dose series) Hepatitis B Vaccines (1 of 3 - 19+ 3-dose series) [facility] Start: 2006 Urine microalbumin profile DTAP,TDAP ,TD (1 - Tdap) [facility] Start: 2005 HEPATITIS C SCREENING HEPATITIS C [facility] Start: 2005 Hepatitis C screening Hepatitis C [facility] Start: 2005 HIV SCREENING HIV SCREENING [facility] Start: 1999 Adult depression [facility] DEPRESSION SCREENING [facility] Start: 1987 COVID-19 Vaccine (#1) COVID-19 Vacci ne (#1) [facility] Start: 1987 HEPATITIS B (1 of 3 - 3-dose series) HEPATITIS B (1 of 3 - 3-dose series) [facility] Start: 1987 Hepatitis B Vaccines (1 of 3 - 3-dose series) Hepatitis B Vaccines (1 of 3 - 3-dose series) [facility] Start: 1987 HIV screening HIV Screening [facility] Start: 1987 Lipid panel Lipid Panel [facility] Start: 1987 Thyroid stimulating hormone measurement TSH Level [facility] Start: 1987 Yearly Adult Physical Yearly Adult P hysical [facility] End: 06-12-2024 ECG 12 lead [facility] Service Area Work Phone: Comment on above: Once for 1 Occurrenc es starting 06/12/2024 until 06/12/2024 As needed until disc ontinued starting 06/12/2024 End: 07-11-2024 ECG 12 Lead ECG 12 Lead ECG STAT Once for 1 Occurrences starting 07/11/2024 until 07/11/2024 [facility] Work Phone: Comment on above: Once for 1 Occurrenc es starting 07/11/2024 until 07/11/2024 End: 06-12-2024 Extra Urine Colvin Tube Extra Urine Colvin Tube Lab Timed Once for 1 Occurrences starting 06/12/2024 until 06/12/2024 [facility] Work Phone: Comment on above: Once for 1 Occurrenc es starting 06/12/2024 until 06/12/2024 End: 07-11-2024 Extra Urine Colvin Tube Extra Urine Colvin Tube Lab Timed Once for 1 Occurrences starting 07/11/2024 until 07/11/2024 [facility] Work Phone: Comment on above: Once for 1 Occurrenc es starting 07/11/2024 until 07/11/2024 Follicle stimulating hormone measurement [facility] Lutropin [Units/volu me] in Serum or Plasma [facility] Patient Education ED Muscle Stra in, Extremity [facility] Work Phone: Patient referral [facility] Work Phone: Prolactin measurement [place] End: 06-12-2024 Pulse oximetry, continuous Pulse oximetry, continuous Respiratory Care STAT Continuous until discontinued starting 06/12/2024 [facility] Work Phone: Comment on above: Continuous until dis continued starting 06/12/2024 End: 06-12-2024 Urinalysis complete W Reflex Culture panel - Urine [facility] Work Phone: Comment on above: Once (Lab) for 1 Occ urrences starting 06/12/2024 until 06/12/2024 End: 07-11-2024 Urinalysis complete W Reflex Culture panel - Urine [facility] Service Area Work Phone: Comment on above: STAT (Lab) for 1 Occ urrences starting 07/11/2024 until 07/11/2024 Immunizations Immunization Date Immunization Notes Care Provider Ritu trejo 02-18-2023 influenza, injectabl e, quadrivalent, preservative free PA Walter Newbill Work Phone: [facility] 02-18-2023 influenza virus vaccine, unspecified formulation Delmar Jones RERE Work Phone: [facility] Work Phone: 02-04-2022 influenza, injectabl e, quadrivalent, preservative free PA Walter Newbill Work Phone: [facility] 02-04-2022 influenza, seasonal, injectable Walter Flakito Newbill Work Phone: [facility] Comment on above: Series: 11-27-2021 measles, mumps and rubella virus vaccine Walter M Newbill Work Phone: [facility] Payers Date Payer Category Payer Self-pay 2022 Managed Care (Private) [facility] [id number] 2022 Unknown [id number] 2021 Unknown 2021 Unknown [id number] 1987 Unknown [id number] 1987 Unknown [id number] .[id number] 1987 Unknown [id number] .[id number] 1987 Unknown [id number] .[id number] 1987 Unknown [id number] .[id number] 1987 Unknown [id number] .[id number] 1987 Unknown [id number] .[id number] 1987 Unknown [id number] .[id number] 1987 Unknown [id number] .1243 1987 Unknown [id number] .1243 1987 Unknown [id number] .[id number] 1987 Unknown [id number] 2.16.840.1.834197.3.579.2 .1243 Unknown [id number] 2.16.840.1.868310.3.579.2 .462 Unknown [id number] 2.16840.1.802867.3.579.2 .462 Unknown [id number] 2.16.840.1.553395.3.579.2 .462 Unknown [id number] 2.16.840.1.714458.3.579.2 .462 Unknown [id number] 2.16.840.1.188914.3.579.2 .462 Unknown [id number] 2.16.840.1.398591.3.579.2 .462 Unknown [id number] 2.16.840.1.584328.3.579.2 .462 Unknown [id number] 2.16.840.1.868193.3.579.2 .462 Unknown [id number] 2.16.840.1.403035.3.579.2 .462 Unknown [id number] 2.16.840.1.509079.3.579.2 .462 Unknown [id number] 2.16.840.1.944585.3.579.2 .462 Unknown [id number] 2.16.840.1.376548.3.579.2 .462 Unknown [id number] 2.16.840.1.434323.3.579.2 .462 Unknown [id number] 2.840.1.090607.3.579.2 .462 Unknown [id number] 2.840.1.946923.3.579.2 .462 Unknown [id number] 2.840.1.572894.3.579.2 .462 Unknown [id number] 2.840.1.206785.3.579.2 .462 Unknown [id number] 2.840.1.616813.3.579.2 .462 Unknown [id number] 2.840.1.990242.3.579.2 .462 Unknown [id number] 2.840.1.361995.3.579.2 .462 Unknown [id number] 2.840.1.510938.3.579.2 .462 Unknown [id number] 2.16840.1.512018.3.579.2 .462 Unknown [id number] 2.16840.1.322403.3.579.2 .462 Unknown [id number] 2.16840.1.752083.3.579.2 .462 Unknown [id number] 2.16.840.1.677275.3.579.2 .462 Unknown [id number] 2.840.1.126583.3.579.2 .462 Social History Date Type Detail Facility [facility] Start: 04-04-2022 End: 02-26-2023 Tobacco smoking consumption unknown [facility] Start: 02-28-2023 End: 06-12-2024 Patient consumes caffeinated coffee Patient consumes caffeinated coffee [facility] Work Phone: Start: 11-19-2021 End: 09-27-2024 Tobacco smoking status NHIS Ex-smoker [facility] End: 03-21-2011 History of tobacco use Current smoker [facility] End: 03-21-2011 History of tobacco use Cigarette Smoker [facility] Start: 11-19-2021 End: 07-26-2022 Tobacco use and exposure Smokeless tobacco non-user [facility] Start: 1985 Sex Assigned At Not on file [facility] Start: 11-09-2021 End: 07-11-2024 Exposure to SARS-CoV-2 (event) Not sure [facility] Start: 1985 Sex Assigned At Female [facility] Start: 07-26-2022 [facility] Work Phone: Start: 07-26-2022 End: 06-12-2024 Alcohol intake Current drinker of alcohol (finding) [facility] Work Phone: Start: 02-28-2023 End: 06-12-2024 Gender identity Not on file [facility] Work Phone: Start: 06-09-2024 End: 07-12-2024 Sex Female (finding) [facility] NEGATED: Highlighted row [facility] NEGATED: Highlighted row Not [facility] Medical Equipment Procedure Code Equipment Code Equipment Original Text Equipment Identifier Dates Total cholecystectomy with exploration of common bile duct Ligation clip, synthetic polymer, non-bioabsorbable [id number] [facility] Start: 07-05-2024 Total cholecystectomy with exploration of common bile duct Ligation clip, synthetic polymer, non-bioabsorbable ()[id number] FDA Start: 07-05-2024 Goals Date Patient Goal Desired Activity /State Functional Status Date Assessment Result Facility 07-12-2024 Functional status Ambulates [facility] Work Phone: 07-11-2024 [place]on - 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 Results that are within the IGF-1 reference interval will have a Z score between -2.0 and +2.0.Performed By: [email or web address] [place] [id number] Director: Rojelio Lew MD, PhD Mental Status Date Assessment Result Facility 07-12-2024 Cognitive function Voice/Name [facility] Work Phone: 07-05-2024 Cognitive function Voice/Name [facility] Work Phone: 02-26-2023 Cognitive function Level Of Cons ciousness Awake;Alert;Appropriate;Follow s Commands [facility] Work Phone: Clinical Notes 10-07-2020 to 10-19-2024 Note Date & Type Note Facility 10-19-2024 Progress note [facility] 10-19-2024 Progress note Note Date/Time October 19, 2024 3:17pm [facility] [address] [place] [address] [address] [place] [address] OFFICE VISIT Date of Service: 10/19/24 MR#: [id number] Acct: [id number] Name: DALLAS FARIAS Rep #: [id number] : 1985 Provider: Dr. Celestine Hollins MD Age/Sex: 39/F Location: [facility] Status: Signed Intake Vital Signs 10/09/24 13:53 10/19/24 15:00 Height 5 ft 4 in 5 ft 4 in Weight: 169 lb BMI 29.0 BP 118/79 Blood Pressure Location Rt brachial Position Sitting Respiration 16 Intake Visit Reasons: BIRADS 4 Chief Complaint: R breast lump Buzzle Buffer Required: No Is patient in pain?: Yes (right breast) Allergies gluten Allergy (Verified 10/19/24 15:03) Abd cramps/diarrhea Medications ?Medication ?Instructions ?Recorded ?Confirmed ?Type cholecalciferol (vitamin D3) 25 25 mcg PO DAILY 10/19/24 History mcg (1,000 unit) capsule folic acid 1 mg tablet 1 mg PO DAILY 07/12/2210/19 History levothyroxine 25 mcg tablet 25 mcg PO QODAY 07/12/22 0 10/19/24 History vitamin B complex (B 1 tab PO DAILY 07/12/22 0804/14 History Complex-Vitamin B12 tablet) multivitamin (One Daily 1 tab PO QDAY 07/31/2410/19 History Multivitamin tablet) [facility] Medical History Tick bite Anxiety Rheumatoid arthritis Back pain Syncope Gastric reflux Shortness of breath on exertion Leg cramps History of edema History of irregular heartbeat Wears glasses Alcohol use Anemia Migraine headache Dietary restriction History of IBS Former smoker History of echocardiogram Cardiology follow-up encounter Allergic dermatitis Depression PVC's (premature ventricular contractions) Palpitations Polyarthralgia Hypothyroidism History of prolactinoma Surgical History S/P cholecystectomy H/O section Family History Mother Hearing loss Grandmother Diabetes Colon cancer PVC (premature ventricular contraction) Grandfather Diabetes Crohn's disease Heart disease Grandmother Alzheimers disease Social History current occupation: [employer] Smoking Status: Former smoker how long ago did patient quit smokin alcohol intake: current substance use type: does not use caffeine: No frequency: daily HPI HPI HPI: Patient is a 39-year-old female known to me for a laparoscopic cholecystectomy who is back with a right breast mass. This was noted on physical exam and she was sent for diagnostic mammogram. The mammogram revealed a right breast mass in the retroareolar space at the 12 o'clock position. The patient is having some breast pain but it is more at the 3 o'clock position. ROS General General: Yes weight change; No appetite, fatigue, colon cancer, breast cancer or weakness HEENT HEENT: No difficulty swallowing, eye injury, eye surgery, swollen glands or hoarseness Endo Endocrine: Yes thyroid disease; No diabetes mellitus, thyroid cancer, Hair loss, heat intolerance or cold intolerance Skin Skin: No rash or changing moles Breast Breast: No left breast lump, right breast lump, nipple discharge, breast pain, abnormal mammogram, abnormal US or breast enlargement Musc Musculoskeletal: Yes back problems, arthritis and rheumatoid arthritis; No gout or joint pain Cardio Cardiovascular: Yes murmur; No pacemaker, heart disease, atrial fibrillation, high blood pressure, heart attack, heart stent, palpitations, shortness of breath with exertion or chest pain Psych Psychiatric: No depression, anxiety or hearing voices Resp Respiratory: No shortness of breath, No sleep apnea, No cough, No COPD, No asthma, No emphysema and No wheezing Gastro Gastrointestinal: No abdominal pain, No nausea or vomiting, No diarrhea, No constipation, No blood in stool, No acid reflux, No hemorrhoids, No ulcers, No gallbladder problem and No black,tarry stools Santosh Hematologic: No blood thinners, No blood disorders, No bleeding, Yes anemia and No blood clots Neuro Neurologic: No system reviewed and no additional complaints, except as documented, No as per HPI, No abnormal gait, No abnormal hearing, No abnormal movements, No abnormal speech, No behavioral changes, No burning sensations, No confusion, No convulsions, No disequilibrium, No dizziness, No localized weakness, No frequent falls, No headache(s), No lack of coordination, No loss ofvision, No memory loss, No numbness, No other visual disturbances, No radicular pain, No restless legs, No sensory deficit, No syncope, No tingling, No tremor(s), No weakness and No other Exam Const General: cooperative Orientation: alert and oriented x3 HENMT Head: normal to inspection Neck Neck: normal visual inspection and full ROM Chest Chest palpation & inspection: normal inspection of the chest Resp Effort & Inspection: normal respiratory effort Auscultation: clear to auscultation bilaterally Cardio Rate: regular rate Rhythm: regular rhythm GI Inspection: non-distended Palpation: soft and nontender Skin General: no rashes or lesions noted Neuro General: patient alert and patient oriented x3 Extrem General: full ROM Psych Appearance: grossly normal Mental Status: mental status grossly normal Office Procedures Biopsy Provider Documentation The right breast was imaged in the mass was localized in the 12 o'clock positionin the retroareolar space. An area of skin was prepped medial to the nipple. It was injected with local anesthetic. A small incision was made with a scalpel. The 14-gauge biopsy needle was placed into the mass several times for biopsies. A clip was placed into the mass. Steri-Strip and bandage were placedover the incision. Patient tolerated the procedure well. Alert Abel Yes Biopsy Breast Biopsy: 70390 US Guidance Procedure Time Out Time Out Informed consent given: Yes Consent signed: Yes Time out checklist: patient, procedure, site marked/identified, positioning of patient, supplies available, allergies confirmed and team agrees on procedure Time out staff in room: Yes Time out verified: Yes Time out date: 10/19/24 Time out time: 15:16 Procedure Time Out Time Out Informed consent given: Yes Consent signed: Yes Time out checklist: patient, procedure, site marked/identified, positioning of patient, supplies available, allergies confirmed and team agrees on procedure Time out staff in room: Yes Time out verified: Yes Time out date: 10/19/24 Time out time: 15:08 Assessment and Plan Assessment and Plan (1) Breast mass, right: Status: Acute Qualifiers: Breast mass location: overlapping quadrants Qualified Code(s): N63.15 -Unspecified lump in the right breast, overlapping quadrants Comment: imaging Plan: Patient had biopsy of her right breast mass today in the office. She tolerated the procedure well. I will call her next week with the results. If this is benign fibroadenoma we will repeat an ultrasound in 6 months. Christian Hollins MD Pager: [facility] [address] [place] [address], [address] [place] [id number] Office: Orders: Orders Biopsy Today N63.15 - Unspecified lump in the right breast, overlapping quadrants Coding Level of Care Code Attention Junior Project Coordinator Diagnoses Mass overlapping multiple quadrants of right breast N63.15 Breast mass location: overlapping quadrants CPT Codes Biopsy - Breast Biopsy: 24738 US Guidance (25821) 10/19/24 1517 <Electronically signed by Christian banks MD> Date _ Christian Hollins MD [facility] Signature: Date (if applicable) CC: ~ [facility] Work Phone: 1(320) 208-569707-10-2025 Radiology Diagnostic study note [facility] Imaging Services [address] [place] [place] [address] Wrist min 3 Views MR#: [id number] Acct: [id number] Name: DALLAS FARIAS Rep #: [id number] : 1985 F 39 From: Fly Subramanian MD PCP: WANG Najera Status: REG CLI Study:Wrist min 3 Views Date of Exam: Exam# [id number] Ordering Dr: America Duran PROCEDURE: WRIST MIN 3 VIEWS 09/27/2024 REASON FOR EXAM: WRIST INJURY TECHNIQUE: WRIST MIN 3 VIEWS COMPARISON: Reviewed FINDINGS: Osseous structures intact. Joint spaces preserved. Mild soft tissue swelling. RAD/Wrist min 3 Views IMPRESSION: No acute radiographic process. Reading Location: [facility] CC: WANG Moreno; LLOYD Medina ~ Billposter: Signed [facility]04-24-2025 Progress note [facility] Medical Records Department [address] [facility] [place] [address] Progress Note 07/12/24 1509 MR#: [id number] Acct: [id number] Name: DALLAS FARIAS Rep #:[id number] : 1985 39 From: Christian doll MD PCP: WANG Najera Status:ADM IN Location: [place] [address] Progress Note The patient had a HIDA scan today which was negative for bile leak. So now she has had a CT scan which was essentially normal and normal labs and normal HIDA. I do not believe there is anything goingon besides postoperative pain. I will discharge her home today. She will follow-up with me in the office unless she has increasing pain and she will call me sooner. Christian Hollins MD Pager: [facility] [address] [place] [address], [address] [place] [address] Office: 07/12/24 4703 Christian Hollins MD Cosigner Signature (if applicable): CC: ~ Signed [facility]04-24-2025 Nuclear medicine Diagnostic study note [facility] Imaging Services [address] [place], [place] [address] [place] [address] Hepatobilliary Imaging MR#: [id number] Acct: [id number] Name: DALLAS FARIAS Rep #: [id number] : 1985 F 39 From: Dano Mckeon MD PCP: WANG Najera Status: ADM IN Study:Hepatobilliary Imaging Date of Exam: 07/12/24 Exam# [id number] Ordering Dr: Christian Gramajo MD PROCEDURE: HEPATOBILLIARY IMAGING 07/12/2024 REASON FOR EXAM: RUQ PAIN AFTER CHOLECYSTECTOMY TECHNIQUE: Intravenous Choletec with planar imaging of the abdomen. RADIOPHARMACEUTICAL: 5.6 mCi of technetium labeled mebrofenin COMPARISON: None. FINDINGS: There is good uptake of the radiopharmaceutical by the liver. The patient is status post cholecystectomy. Radiopharmaceutical is seen within the proximal small bowel. NM/Hepatobilliary Imaging IMPRESSION: Status post cholecystectomy. No abnormality is seen. Reading Location: [place] [address] CC: WANG Moreno; Dr. Christian Hollins MD; Dr. Juan Antonio Hinkle MD ~ Billposter: Signed [facility]04-24-2025 History and physical note Author Christian Hollins [facility] Note Date/Time July 12, 2024 8:2 2am [facility] Medical Records Department [address] [place] [address] H&P Exam - Surgical 07/12/24819 MR#: [id number] Acct: [id number] Name: DALLAS FARIAS Rep #:[id number] : 1985 39 From: Christian doll MD PCP: WANG Najera Status:ADM IN Location: [facility] [id number] HPI - General General Date of Admission: 07/12/24 HPI Narrative DALLAS FARIAS, is a 39 F who presents with abdominal pain that was severe. She reports that she has been feeling more tired than she would expect after surgeryfor the past week. She had a laparoscopic cholecystectomy 1 week ago for biliary dyskinesia. She reports that yesterday she was cooking food and in the middle of cooking she felt like stabbing pain under the right ribs that radiatesdown to the pelvis. She says it has not gone away and is still operator batch or continuous. She denies nausea or vomiting or fevers or chills. [facility] Medical History Anxiety Rheumatoid arthritis Back pain Syncope Gastric reflux Shortness of breath on exertion Leg cramps History of edema History of irregular heartbeat Wears glasses Alcohol use Anemia Migraine headache Dietary restriction History of IBS Former smoker History of echocardiogram Cardiology follow-up encounter Allergic dermatitis Depression PVC's (premature ventricular contractions) Palpitations Polyarthralgia Hypothyroidism History of prolactinoma Home Medications ?Medication ?Instructions ?Recorded ?Last Taken ?Type cholecalciferol (vitamin D3) 25 25 mcg PO DAILY 07/03/24 History mcg (1,000 unit) capsule folic acid 1 mg tablet 1 mg PO DAILY 07/12/2207/03 History levothyroxine 25 mcg tablet 25 mcg PO QODAY 07/12/22 0 07/03/24 History vitamin B complex (B 1 tab PO DAILY 07/12/2206/19 History Complex-Vitamin B12 tablet) melatonin 3 mg capsule 3 mg PO HS PRN sleep 3 07/03/24 History acetaminophen 325 mg tablet 650 mg PO Q4H PRN pain 07/03/24 History (Tylenol) ondansetron 4 mg disintegrating 4 mg PO Q8H PRN nausea and 07/05/24 Unknown Rx tablet vomiting #14 tabs oxycodone 5 mg tablet 5 - 10 mg (1 - 2 x 5 mg) PO Q4H 07/05/24 Unknown Rx PRN PRN Pain Score 4-10 5 days #20 tabs turmeric (bulk) 1 ea miscellaneous DAILY 07/03/24 History Allergy/AdvReac Type Severity Reaction Status Date / Time gluten Allergy Abd Verified 07/12/24 03:47 cramps/diarrhea Family History Mother Hearing loss Grandmother Diabetes Colon cancer PVC (premature ventricular contraction) Grandfather Diabetes Crohn's disease Heart disease Grandmother Alzheimers disease Surgical History H/O section Social History current occupation: [employer] Smoking Status: Former smoker how long ago did patient quit smokin alcohol intake: current substance use type: does not use caffeine: No frequency: daily Vital Signs Vital Signs Vital Signs: 07/12/24 03:50 07/12/24 04:01 Temperature 98.7 F Temperature Source Oral Pulse Rate 82 Respiratory Rate 16 Respiratory Effort Normal Non-Labored Respiratory Depth Normal Respiratory Pattern Normal Blood Pressure 132/70 H Blood Pressure Mean 90 Blood Pressure Source Monitor Blood Pressure Position Semi-Fowlers Blood Pressure Location Left Arm Pulse Ox 100 Oxygen Delivery Method Room Air Weight Weight: 175 lb 0.752 oz Body Mass Index (BMI) 30.0 Physical Exam Const oriented x3 and no apparent distress Resp normal respiratory effort Cardio regular rate and regular rhythm GI soft to palpation Palpation: tender RUQ Results Lab / Micro Data 07/12/24 05:20 07/12/24 05:20 Labs: Laboratory Results - last 24 hr 07/12/24 05:20: WBC 8.9, RBC 3.54 L, Hgb 11.3 L, Hct 33.8 L, MCV 95.5, MCH 31.9,MCHC 33.4, RDW Std Deviation 45.2 H, RDW Coeff of Ada 12.8, Plt Count 263, MPV 11.8, Immature Gran % (Auto) 0.200, Neut % (Auto) 71.3 H, Lymph % (Auto) 15.8 L,[place] % (Auto) 10.4 H, Eos % (Auto) 1.6, Baso % (Auto) 0.7, Absolute Neuts (auto)6.4, Absolute Lymphs (auto) 1.41, Nucleated RBC % 0, Sodium 139, Potassium 3.6, Chloride 108, Carbon Dioxide 20.3 L, Anion Gap 11, BUN 10, Creatinine 0.70, Estim Creat Clear Calc 112.18, Est GFR (MDRD) Non-Af 114, BUN/Creatinine Ratio 14.0, Glucose 108 H, Calcium 8.0, Total Bilirubin 0.26, AST 23, ALT 31, AlkalinePhosphatase 60, Total Protein 6.4, Albumin 3.6, Globulin 2.8, Albumin/Globulin Ratio 1.3 Assessment & Plan Assessment/Plan (1) Biliary dyskinesia: PLAN: The patient had laparoscopic cholecystectomy 1 week ago. It was uncomplicated. She is having stabbing pain that is radiating down to the pelvis. White count and labs are normal. LFTs are normal. She had a CT scan which showed a residual fluid collection in the gallbladder fossa. I will ordera SID to evaluate and make sure she does not have a bile leak. Christian Hollins MD Pager: [facility] [address] [place] [address], [address] [place] [address] Office: 07/12/24821 <Electronically signed by Christian Hollins MD> Cosigner Signature (if applicable): CC: WANG Moreno; Dr. Christian Hollins MD~ Signed [facility] Work Phone: 1(242) 519-849604-24-2025 History and physical note [facility] Medical Records Department [address] [place] [address] H&P Exam - Surgical 07/12/24819 MR#: [id number] Acct: [id number] Name: DALLAS FARIAS Rep #:[id number] : 1985 39 From: Christian doll MD PCP: WANG Najera Status:ADM IN Location: [facility] [id number] HPI - General General Date of Admission: 07/12/24 HPI Narrative DALLAS FARIAS, is a 39 F who presents with abdominal pain that was severe. She reports that she hasbeen feeling more tired than she would expect after surgeryfor the past week. She had a laparoscopic cholecystectomy 1 week ago for biliary dyskinesia. She reports that yesterday she was cooking foodand in the middle of cooking she felt like stabbing pain under the right ribs that radiatesdown to the pelvis. She says it has not gone away and is still operator batch or continuous. She denies nausea or vomiting or fevers or chills. [facility] Medical History Anxiety Rheumatoid arthritis Back pain Syncope Gastric reflux Shortness of breath on exertion Leg cramps History of edema History of irregular heartbeat Wears glasses Alcohol use Anemia Migraine headache Dietary restriction History of IBS Former smoker History of echocardiogram Cardiology follow-up encounter Allergic dermatitis Depression PVC's (premature ventricular contractions) Palpitations Polyarthralgia Hypothyroidism History of prolactinoma Home Medications ?Medication ?Instructions ?Recorded ?Last Taken ?Type cholecalciferol (vitamin D3) 25 25 mcg PO DAILY 07/03/24 History mcg (1,000 unit) capsule folic acid 1 mg tablet 1 mg PO DAILY 07/12/2207/03 History levothyroxine 25 mcg tablet 25 mcg PO QODAY 07/12/22 0 07/03/24 History vitamin B complex (B 1 tab PO DAILY 07/12/2206/19 History Complex-Vitamin B12 tablet) melatonin 3 mg capsule 3 mg PO HS PRN sleep 3 07/03/24 History acetaminophen 325 mg tablet 650 mg PO Q4H PRN pain 07/03/24 History (Tylenol) ondansetron 4 mg disintegrating 4 mg PO Q8H PRN nausea and 07/05/24 Unknown Rx tablet vomiting #14 tabs oxycodone 5 mg tablet 5 - 10 mg (1 - 2 x 5 mg) PO Q4H 07/05/24 Unknown Rx PRN PRN Pain Score 4-10 5 days #20 tabs turmeric (bulk) 1 ea miscellaneous DAILY 07/03/24 History Allergy/AdvReac Type Severity Reaction Status Date / Time gluten Allergy Abd Verified 07/12/24 03:47 cramps/diarrhea Family History Mother Hearing loss Grandmother Diabetes Colon cancer PVC (premature ventricular contraction) Grandfather Diabetes Crohn's disease Heart disease Grandmother Alzheimers disease Surgical History H/O section Social History current occupation: [employer] Smoking Status: Former smoker how long ago did patient quit smokin alcohol intake: current substance use type: does not use caffeine: No frequency: daily Vital Signs Vital Signs Vital Signs: 07/12/24 03:50 07/12/24 04:01 Temperature 98.7 F Temperature Source Oral Pulse Rate 82 Respiratory Rate 16 Respiratory Effort Normal Non-Labored Respiratory Depth Normal Respiratory Pattern Normal Blood Pressure 132/70 H Blood Pressure Mean 90 Blood Pressure Source Monitor Blood Pressure Position Semi-Fowlers Blood Pressure Location Left Arm Pulse Ox 100 Oxygen Delivery Method Room Air Weight Weight: 175 lb 0.752 oz Body Mass Index (BMI) 30.0 Physical Exam Const oriented x3 and no apparent distress Resp normal respiratory effort Cardio regular rate and regular rhythm GI soft to palpation Palpation: tender RUQ Results Lab / Micro Data 07/12/24 05:20 07/12/24 05:20 Labs: Laboratory Results - last 24 hr 07/12/24 05:20: WBC 8.9, RBC 3.54 L, Hgb 11.3 L, Hct 33.8 L, MCV 95.5, MCH 31.9,MCHC 33.4, RDW Std Deviation 45.2 H, RDW Coeff of Ada 12.8, Plt Count 263, MPV 11.8, Immature Gran % (Auto) 0.200, Neut% (Auto) 71.3 H, Lymph % (Auto) 15.8 L,[place] % (Auto) 10.4 H, Eos % (Auto) 1.6, Baso % (Auto) 0.7, Absolute Neuts (auto)6.4, Absolute Lymphs (auto) 1.41, Nucleated RBC % 0, Sodium 139, Potassium 3.6, Chloride 108, Carbon Dioxide 20.3 L, Anion Gap 11, BUN 10, Creatinine 0.70, Estim Creat Clear Calc 112.18, Est GFR (MDRD) Non-Af 114, BUN/Creatinine Ratio 14.0, Glucose 108 H, Calcium 8.0, Total Bilirubin 0.26, AST 23, ALT 31, AlkalinePhosphatase 60, Total Protein 6.4, Albumin 3.6, Globulin 2.8, Albu min/Globulin Ratio 1.3 Assessment & Plan Assessment/Plan (1) Biliary dyskinesia: PLAN: The patient had laparoscopic cholecystectomy 1 week ago. It was uncomplicated. She is having stabbing pain that is radiating down to the pelvis. White count and labs are normal. LFTs are normal. She had a CT scan which showed a residual fluid collection in the gallbladder fossa. I will orderaHIDA to evaluate and make sure she does not have a bile leak. Christian Hollins MD Pager: [facility] [address] [place] [address], [address] [place] [address] Office: 07/12/24 5635 Cosigner Signature (if applicable): CC: WANG Moreno; Dr. Christian Hollins MD~ Signed [facility]04-23-2025 Physician Emergency department Note* Michael Fleming, DO - 07/11/2024 10:33 PM EDT Emergency Medicine Transition of Care Note. I received Dallas Farias in signout from Dr. Hyatt. Please see the previous ED provider notefor all HPI, PE and MDM up to the time of signout at 2200. This is in addition to the primary record. I did speak to the surgeon Dr. Hinkle was covering for the surgeon who did the procedure. He will accept the patient at [facility]. Patient will be given a dose of Zosyn prior to discharge. Patient so far has been given a total of 8 mg of IV morphine to manage her pain. Patient has remained stable and is receiving IV fluids at present. In brief Dallas Farias is an 39 y.o. female presenting for Chief Complaint Patient presents with Abdominal Pain Dizziness Pt. Reports having gallbladder removed 1wk ago, states she feels as if she was doing to much this evening and now 8/10 RUQ pain, feeling dizzy/diaphoretic At the time of signout we were awaiting: CT scan Diagnoses as of 07/11/24 2328 Right upper quadrant abdominal pain Labs Reviewed LACTATE - Abnormal Result Value Lactate 3.2 (*) Narrative: Venipuncture immediately after or during the administration of Metamizole may lead to falsely low results. Testing should be performed immediately prior to Metamizole dosing. COMPREHENSIVE METABOLIC PANEL - Abnormal Glucose 118 (*) Sodium 136 Potassium 3.6 Chloride 104 Bicarbonate 17 (*) Anion Gap 19 Urea Nitrogen 11 Creatinine 0.70 eGFR >90 Calcium 8.9 Albumin 4.4 Alkaline Phosphatase 59 Total Protein 7.3 AST 19 Bilirubin, Total 0.4 ALT 31 URINALYSIS WITH REFLEX CULTURE AND MICROSCOPIC - Abnormal Color, Urine Colorless (*) Appearance, Urine Clear Specific [place], Urine 1.013 pH, Urine 6.5 Protein, Urine NEGATIVE Glucose, Urine Normal Blood, Urine 0.1 (1+) (*) Ketones, Urine NEGATIVE Bilirubin, Urine NEGATIVE Urobilinogen, Urine Normal Nitrite, Urine NEGATIVE Leukocyte Esterase, Urine NEGATIVE LIPASE - Normal Lipase 21 Narrative: Venipuncture immediately after or during the administration of Metamizole may lead to falsely low results. Testing should be performed immediately prior to Metamizole dosing. LACTATE - Normal Lactate 1.1 Narrative: Venipuncture immediately after or during the administration of Metamizole may lead to falsely low results. Testing should be performed immediately prior to Metamizole dosing. CBC WITH AUTO DIFFERENTIAL WBC 10.6 nRBC 0.0 RBC 4.06 Hemoglobin 12.7 Hematocrit 38.8 MCV 96 MCH 31.3 MCHC 32.7 RDW 12.7 Platelets 308 Neutrophils % 44.4 Immature Granulocytes %, Automated 0.3 Lymphocytes % 43.8 Monocytes % 7.5 Eosinophils % 3.1 Basophils % 0.9 Neutrophils Absolute 4.69 Immature Granulocytes Absolute, Automated 0.03 Lymphocytes Absolute 4.62 Monocytes Absolute 0.79 Eosinophils Absolute 0.33 Basophils Absolute 0.09 URINALYSIS WITH REFLEX CULTURE AND MICROSCOPIC Narrative: The following orders were created for panel order Urinalysis with Reflex Culture and Microscopic. Procedure Abnormality Status --------- ------ Urinalysis with Reflex C...[[id number]] Abnormal Final result Extra Urine Colvin Tube[[id number]] Please view results for these tests on the individual orders. EXTRA URINE COLVIN TUBE URINALYSIS MICROSCOPIC WITH REFLEX CULTURE WBC, Urine 1-5 RBC, Urine NONE Squamous Epithelial Cells, Urine 1-9 (SPARSE) Mucus, Urine FEW CT abdomen pelvis w IV contrast Final Result There is a heterogeneous fluid collection in the gallbladder fossa measuring up to 2.2 x 2.1 cm in transaxial diameters, 3.2 cm in CC diameter (series 2, images 45-60), possibly representing hematoma/seroma, biloma, or abscess. Otherwise, no evidence of acute pathology. Hepatomegaly. Additional findings as discussed above. MACRO: None Signed by: Jono Millan 07/11/2024 10:30 PM Dictation workstation: [id number] Medical Decision Making Transfer to [facility] Final diagnoses: [R10.11] Right upper quadrant abdominal pain Procedure Procedures DO Michael Peters DO 07/11/24 4303 [facility] Work Phone: 1(162) 354-652304-23-2025 Emergency department Note* Michael Fleming DO - 07/11/2024 10:33 PM EDT Emergency Medicine Transition of Care Note. I received Dallas Farias in signout from Dr. Hyatt. Please see the previous ED provider notefor all HPI, PE and MDM up to the time of signout at 2200. This is in addition to the primary record. I did speak to the surgeon Dr. Hinkle was covering for the surgeon who did the procedure. He will accept the patient at [facility]. Patient will be given a dose of Zosyn prior to discharge. Patient so far has been given a total of 8 mg of IV morphine to manage her pain. Patient has remained stable and is receiving IV fluids at present. In brief Dallas Farias is an 39 y.o. female presenting for Chief Complaint Patient presents with Abdominal Pain Dizziness Pt. Reports having gallbladder removed 1wk ago, states she feels as if she was doing to much this evening and now 8/10 RUQ pain, feeling dizzy/diaphoretic At the time of signout we were awaiting: CT scan Diagnoses as of 07/11/24 2723 Right upper quadrant abdominal pain Labs Reviewed LACTATE - Abnormal Result Value Lactate 3.2 (*) Narrative: Venipuncture immediately after or during the administration of Metamizole may lead to falsely low results. Testing should be performed immediately prior to Metamizole dosing. COMPREHENSIVE METABOLIC PANEL - Abnormal Glucose 118 (*) Sodium 136 Potassium 3.6 Chloride 104 Bicarbonate 17 (*) Anion Gap 19 Urea Nitrogen 11 Creatinine 0.70 eGFR >90 Calcium 8.9 Albumin 4.4 Alkaline Phosphatase 59 Total Protein 7.3 AST 19 Bilirubin, Total 0.4 ALT 31 URINALYSIS WITH REFLEX CULTURE AND MICROSCOPIC - Abnormal Color, Urine Colorless (*) Appearance, Urine Clear Specific [place], Urine 1.013 pH, Urine 6.5 Protein, Urine NEGATIVE Glucose, Urine Normal Blood, Urine 0.1 (1+) (*) Ketones, Urine NEGATIVE Bilirubin, Urine NEGATIVE Urobilinogen, Urine Normal Nitrite, Urine NEGATIVE Leukocyte Esterase, Urine NEGATIVE LIPASE - Normal Lipase 21 Narrative: Venipuncture immediately after or during the administration of Metamizole may lead to falsely low results. Testing should be performed immediately prior to Metamizole dosing. LACTATE - Normal Lactate 1.1 Narrative: Venipuncture immediately after or during the administration of Metamizole may lead to falsely low results. Testing should be performed immediately prior to Metamizole dosing. CBC WITH AUTO DIFFERENTIAL WBC 10.6 nRBC 0.0 RBC 4.06 Hemoglobin 12.7 Hematocrit 38.8 MCV 96 MCH 31.3 MCHC 32.7 RDW 12.7 Platelets 308 Neutrophils % 44.4 Immature Granulocytes %, Automated 0.3 Lymphocytes % 43.8 Monocytes % 7.5 Eosinophils % 3.1 Basophils % 0.9 Neutrophils Absolute 4.69 Immature Granulocytes Absolute, Automated 0.03 Lymphocytes Absolute 4.62 Monocytes Absolute 0.79 Eosinophils Absolute 0.33 Basophils Absolute 0.09 URINALYSIS WITH REFLEX CULTURE AND MICROSCOPIC Narrative: The following orders were created for panel order Urinalysis with Reflex Culture and Microscopic. Procedure Abnormality Status --------- ------ Urinalysis with Reflex C...[[id number]] Abnormal Final result Extra Urine Colvin Tube[[id number]] Please view results for these tests on the individual orders. EXTRA URINE COLVIN TUBE URINALYSIS MICROSCOPIC WITH REFLEX CULTURE WBC, Urine 1-5 RBC, Urine NONE Squamous Epithelial Cells, Urine 1-9 (SPARSE) Mucus, Urine FEW CT abdomen pelvis w IV contrast Final Result There is a heterogeneous fluid collection in the gallbladder fossa measuring up to 2.2 x 2.1 cm in transaxial diameters, 3.2 cm in CC diameter (series 2, images 45-60), possibly representing hematoma/seroma, biloma, or abscess. Otherwise, no evidence of acute pathology. Hepatomegaly. Additional findings as discussed above. MACRO: None Signed by: Jono Millan 07/11/2024 10:30 PM Dictation workstation: [id number] Medical Decision Making Transfer to [facility] Final diagnoses: [R10.11] Right upper quadrant abdominal pain Procedure Procedures DO Michael Peters DO 07/11/24 2329 * Patricia Hyatt, RASHAD-TERRAZZO GRINDER - 07/11/2024 8:51 PM EDT Chief Complaint Patient presents with Abdominal Pain Dizziness Pt. Reports having gallbladder removed 1wk ago, states she feels as if she was doing to much this evening and now 8/10 RUQ pain, feeling dizzy/diaphoretic Patient History Medical History[1] Surgical History[2] Family History[3] Social History Social History Narrative Not on file RX Allergies[4] PMH: Reviewed PSH: Reviewed Social History: Reviewed. Allergies reviewed. HPI: Dallas Farias is a 39 y.o. female who presents to the ED today accompanied by her with complaints of worsening abdominal pain. She had her gallbladder removed a week ago at [facility]. States she was doing too much tonight, including cooking dinner and cutting her hair, when the pain in her right upper quadrant intensified. She has only been taking Tylenol for her pain. No fevers. Feels dizzy and somewhat diaphoretic due to the pain. REVIEW OF SYSTEMS: All other systems reviewed and negative except as listed in HPI. PHYSICAL EXAM: GENERAL: Vitals noted, no distress. Alert and oriented x 3. Non-toxic. EENT: TMs clear. Posterior oropharynx unremarkable. EOMI, no nystagmus noted. NECK: Supple. No masses. No midline tenderness. No meningeal signs. CARDIAC: Regular rate, rhythm. No murmurs rubs or gallops. No JVD. PULMONARY: Lungs clear and equal bilaterally. No wheezes rales or rhonchi. No respiratory distress. ABDOMEN: Soft, nondistended, and tender in the right upper and right lower abdomen. Surgical incisions appear well healing with mild ecchymosis, no erythema or drainage. No peritoneal signs. Bowel sounds are present and normoactive in all 4 quadrants. No pulsatile masses. EXTREMITIES: No peripheral edema. SKIN: No rash. Warm, dry, and intact. NEURO: No focal neurologic deficits. Labs Reviewed LACTATE - Abnormal Result Value Lactate 3.2 (*) Narrative: Venipuncture immediately after or during the administration of Metamizole may lead to falsely low results. Testing should be performed immediately prior to Metamizole dosing. COMPREHENSIVE METABOLIC PANEL - Abnormal Glucose 118 (*) Sodium 136 Potassium 3.6 Chloride 104 Bicarbonate 17 (*) Anion Gap 19 Urea Nitrogen 11 Creatinine 0.70 eGFR >90 Calcium 8.9 Albumin 4.4 Alkaline Phosphatase 59 Total Protein 7.3 AST 19 Bilirubin, Total 0.4 ALT 31 LIPASE - Normal Lipase 21 Narrative: Venipuncture immediately after or during the administration of Metamizole may lead to falsely low results. Testing should be performed immediately prior to Metamizole dosing. CBC WITH AUTO DIFFERENTIAL WBC 10.6 nRBC 0.0 RBC 4.06 Hemoglobin 12.7 Hematocrit 38.8 MCV 96 MCH 31.3 MCHC 32.7 RDW 12.7 Platelets 308 Neutrophils % 44.4 Immature Granulocytes %, Automated 0.3 Lymphocytes % 43.8 Monocytes % 7.5 Eosinophils % 3.1 Basophils % 0.9 Neutrophils Absolute 4.69 Immature Granulocytes Absolute, Automated 0.03 Lymphocytes Absolute 4.62 Monocytes Absolute 0.79 Eosinophils Absolute 0.33 Basophils Absolute 0.09 URINALYSIS WITH REFLEX CULTURE AND MICROSCOPIC Narrative: The following orders were created for panel order Urinalysis with Reflex Culture and Microscopic. Procedure Abnormality Status --------- ------ Urinalysis with Reflex C...[[id number]] Extra Urine Colvin Tube[[id number]] Please view results for these tests on the individual orders. URINALYSIS WITH REFLEX CULTURE AND MICROSCOPIC EXTRA URINE COLVIN TUBE LACTATE CT abdomen pelvis w IV contrast (Results Pending) Medical Decision Making Amount and/or Complexity of Data Reviewed Labs: ordered. Radiology: ordered. ECG/medicine tests: ordered. EKG interpreted by myself shows SR with rate of 98. Normal axis. NM interval 140. QRS interval 366.QT interval 467. QTc interval . Non-specific ST-T wave changes. No acute ischemia or injury pattern. ED COURSE: This patient was seen and examined by myself and Dr. Fleming. She is placed on a continuous court monitor with pulse oximetry monitoring. Old records and EKGs are obtained and reviewed. IVheplock is established, labs are obtained and noted above. Given IV morphine and zofran. Lactate elevated at 3.2, will repeat in 2-[address] scan and re-eval at the end of my shift and care turned over to ED attending for completion at 2200. Differential Diagnoses Considered: postop pain, abscess, cellulitis Chronic Medical Conditions Significantly Affecting Care: see above External Records Reviewed: I reviewed recent and relevant outside records including: PCP notes, prior discharge summary, previous radiologic studies Diagnostic testing considered: blood, urine, CT abd/pelv DIAGNOSTIC IMPRESSION: #1 RUQ abdominal pain [1] Past Medical History: Diagnosis Date Biliary colic 07/02/2022 Disease of thyroid gland Encounter for delivery without indication ([facility]) Delivery of by section Encounter for gynecological examination (general) (routine) without abnormal findings Pap test, as part of routine gynecological examination Hair loss 07/02/2022 Menorrhagia with regular cycle 07/02/2022 Other conditions influencing health status Menstruation Personal history of other infectious and parasitic diseases History of HPV infection RA (rheumatoid arthritis) [2] Past Surgical History: Procedure Laterality Date OTHER SURGICAL HISTORY 10/07/2021 section OTHER SURGICAL HISTORY 10/07/2021 Cervical cryosurgery [3] No family history on file. [4] Allergies Allergen Reactions Gluten Unknown RERE Barros 07/11/242203 Cosigned by Michael Fleming DO at 07/12/2024 2:22 AM EDT [facility] Work Phone: 1(578) 591-258304-23-2025 Physician Emergency department Note* RERE Barros - 07/11/2024 8:51 PM EDT Chief Complaint Patient presents with Abdominal Pain Dizziness Pt. Reports having gallbladder removed 1wk ago, states she feels as if she was doing to much this evening and now 8/10 RUQ pain, feeling dizzy/diaphoretic Patient History Medical History[1] Surgical History[2] Family History[3] Social History Social History Narrative Not on file RX Allergies[4] PMH: Reviewed PSH: Reviewed Social History: Reviewed. Allergies reviewed. HPI: Dallas Farias is a 39 y.o. female who presents to the ED today accompanied by her with complaints of worsening abdominal pain. She had her gallbladder removed a week ago at [facility]. States she was doing too much tonight, including cooking dinner and cutting her hair, when the pain in her right upper quadrant intensified. She has only been taking Tylenol for her pain. No fevers. Feels dizzy and somewhat diaphoretic due to the pain. REVIEW OF SYSTEMS: All other systems reviewed and negative except as listed in HPI. PHYSICAL EXAM: GENERAL: Vitals noted, no distress. Alert and oriented x 3. Non-toxic. EENT: TMs clear. Posterior oropharynx unremarkable. EOMI, no nystagmus noted. NECK: Supple. No masses. No midline tenderness. No meningeal signs. CARDIAC: Regular rate, rhythm. No murmurs rubs or gallops. No JVD. PULMONARY: Lungs clear and equal bilaterally. No wheezes rales or rhonchi. No respiratory distress. ABDOMEN: Soft, nondistended, and tender in the right upper and right lower abdomen. Surgical incisions appear well healing with mild ecchymosis, no erythema or drainage. No peritoneal signs. Bowel sounds are present and normoactive in all 4 quadrants. No pulsatile masses. EXTREMITIES: No peripheral edema. SKIN: No rash. Warm, dry, and intact. NEURO: No focal neurologic deficits. Labs Reviewed LACTATE - Abnormal Result Value Lactate 3.2 (*) Narrative: Venipuncture immediately after or during the administration of Metamizole may lead to falsely low results. Testing should be performed immediately prior to Metamizole dosing. COMPREHENSIVE METABOLIC PANEL - Abnormal Glucose 118 (*) Sodium 136 Potassium 3.6 Chloride 104 Bicarbonate 17 (*) Anion Gap 19 Urea Nitrogen 11 Creatinine 0.70 eGFR >90 Calcium 8.9 Albumin 4.4 Alkaline Phosphatase 59 Total Protein 7.3 AST 19 Bilirubin, Total 0.4 ALT 31 LIPASE - Normal Lipase 21 Narrative: Venipuncture immediately after or during the administration of Metamizole may lead to falsely low results. Testing should be performed immediately prior to Metamizole dosing. CBC WITH AUTO DIFFERENTIAL WBC 10.6 nRBC 0.0 RBC 4.06 Hemoglobin 12.7 Hematocrit 38.8 MCV 96 MCH 31.3 MCHC 32.7 RDW 12.7 Platelets 308 Neutrophils % 44.4 Immature Granulocytes %, Automated 0.3 Lymphocytes % 43.8 Monocytes % 7.5 Eosinophils % 3.1 Basophils % 0.9 Neutrophils Absolute 4.69 Immature Granulocytes Absolute, Automated 0.03 Lymphocytes Absolute 4.62 Monocytes Absolute 0.79 Eosinophils Absolute 0.33 Basophils Absolute 0.09 URINALYSIS WITH REFLEX CULTURE AND MICROSCOPIC Narrative: The following orders were created for panel order Urinalysis with Reflex Culture and Microscopic. Procedure Abnormality Status --------- ------ Urinalysis with Reflex C...[[id number]] Extra Urine Colvin Tube[[id number]] Please view results for these tests on the individual orders. URINALYSIS WITH REFLEX CULTURE AND MICROSCOPIC EXTRA URINE COLVIN TUBE LACTATE CT abdomen pelvis w IV contrast (Results Pending) Medical Decision Making Amount and/or Complexity of Data Reviewed Labs: ordered. Radiology: ordered. ECG/medicine tests: ordered. EKG interpreted by myself shows SR with rate of 98. Normal axis. NM interval 140. QRS interval 366.QT interval 467. QTc interval . Non-specific ST-T wave changes. No acute ischemia or injury pattern. ED COURSE: This patient was seen and examined by myself and Dr. Fleming. She is placed on a continuous court monitor with pulse oximetry monitoring. Old records and EKGs are obtained and reviewed. IVheplock is established, labs are obtained and noted above. Given IV morphine and zofran. Lactate elevated at 3.2, will repeat in 2-[address] scan and re-eval at the end of my shift and care turned over to ED attending for completion at 2200. Differential Diagnoses Considered: postop pain, abscess, cellulitis Chronic Medical Conditions Significantly Affecting Care: see above External Records Reviewed: I reviewed recent and relevant outside records including: PCP notes, prior discharge summary, previous radiologic studies Diagnostic testing considered: blood, urine, CT abd/pelv DIAGNOSTIC IMPRESSION: #1 RUQ abdominal pain [1] Past Medical History: Diagnosis Date Biliary colic 07/02/2022 Disease of thyroid gland Encounter for delivery without indication ([facility]) Delivery of by section Encounter for gynecological examination (general) (routine) without abnormal findings Pap test, as part of routine gynecological examination Hair loss 07/02/2022 Menorrhagia with regular cycle 07/02/2022 Other conditions influencing health status Menstruation Personal history of other infectious and parasitic diseases History of HPV infection RA (rheumatoid arthritis) [2] Past Surgical History: Procedure Laterality Date OTHER SURGICAL HISTORY 10/07/2021 section OTHER SURGICAL HISTORY 10/07/2021 Cervical cryosurgery [3] No family history on file. [4] Allergies Allergen Reactions Gluten Unknown Patricia Hyatt, RASHAD-TERRAZZO GRINDER 07/11/242203 Cosigned by Michael Fleming DO at 07/12/2024 2:22 AM EDT [facility] Work Phone: 1(388) 486-737104-17-2025 Consult note [facility] Medical Records Department [address] [place] [address] Anesthesia Postop Eval I 07/05/24 1147 MR#: [id number] Acct: [id number] Name: DALLAS FARIAS Rep #:[id number] : 1985 39 From: Fede bullock CRNA PCP: VIVIAN NajeraC Status:REG [facility] Y Race: C Location: [place] [address] Anesthesia: Postop Eval I Current Vital Signs Temperature: 97.4 F Pulse Rate: 59 Blood Pressure: 117/75 Respiratory Rate: 18 Pulse Ox: 100 Oxygen Delivery Method: Room Air Assessment Airway patent: Yes Spontaneous unlabored respirations: Yes nausea: No Vomiting: No Anesthesia Complication: No Fluid Hydration Crystalloid volume administer (ml): 1,000 Total IV fluid infused: 1,000 Progress Note Anesthesia document: Postop Eval 1 completed: Yes 07/05/24 1148 ero CHIEF STATION ENGINEER> Date _ Fede Ronquillo CHIEF STATION ENGINEER Cosigner Signature: Date CC: ~ Signed [facility]04-17-2025 Discharge summary Author Christian Hollins [facility] Note Date/Time July 05, 2024 8:2 7am [facility] Medical Records Department [address] [place] [address] Instructions for Home/Discharge Instructions 07/05/24 08 MR#: [id number] Acct: [id number] Name: DALLAS FARIAS Rep #:[id number] : 1985 39 From: Christian doll MD PCP: VIVIAN NajeraC Status:REG [facility] [place] Discharge Instructions Procedure Gallbladder Diet Discharge Diet: Light diet - advance as tolerated Activity Discharge Activity: May Not Drive (for 2-3 days or while taking narcotic pain medications.) and - (Do not drive, work heavy equipment or sign legal documents for 24 hours.) May shower in (days): 1 Lifting Restrictions: 20 lbs for 2 weeks Additional Activity Instructions:: Pain medication may cause nausea. You should typically eat light foods as you take your pain medications. Pain medication may also cause constipation. If this is a problem for you, please discuss with your doctor. Dressing / Incision Call your doctor if your incision/area has: Continuous Slow Oozing, Sudden Increased Bleeding, Increased Pain/ Swelling, Increased Redness and Foul Smelling Discharge Call your doctor if you observe: Fever of 101 or Higher Suture Line Care: Avoid Pulling/Pushing and Avoid Pinching/Bending Remove Dressing in: 2 days Additional Dressing/Incision Instructions:: Leave operative bandaids on for 2 days. When you remove dressing, leave Steri-Strips on until your follow-up appointment, or until the Steri-Strips fall off on their own. Follow Up Care Please Follow Up With: Christian Hollins MD When: Please call to schedule 2 week follow up appointment. [phone] Test Results: Test results from this visit will be discussed in further detail at your follow- up appointment, if applicable. Discharge Plan Admission Attending Provider: Christian Hollins Primary Care Provider: Nona Moreno Instructions Print Language: Palestinian Discharge Orders/Prescriptions Prescriptions: New oxycodone 5 mg Tablet 5 - 10 mg PO Q4H PRN PRN (Reason: Pain Score 4-10) 5 Days Qty: 20 0RF No Action levothyroxine 25 mcg tablet 25 mcg PO QODAY Patient Comments: TAKE 1 TABLET BY MOUTH EVERY OTHER DAY cholecalciferol (vitamin D3) 25 mcg (1,000 unit) capsule 25 mcg PO DAILY folic acid 1 mg tablet 1 mg PO DAILY vitamin B complex [B Complex-Vitamin B12] Tablet 1 tab PO DAILY apple cider vinegar 300 mg tablet 300 mg PO DAILY melatonin 3 mg capsule 3 mg PO HS PRN (Reason: sleep) acetaminophen [Tylenol] 325 mg tablet 650 mg PO Q4H PRN (Reason: pain) turmeric (bulk) [Curcumin] miscellaneous DAILY Referrals / Follow Up: Nona Moreno NP-C [Primary Care Provider] - Disposition Disposition (needs filled in before D/C Order can be placed): Home, Self Care 07/05/24826<Electronically signed by Christian Hollins MD>Christian Hollins MD CC: VIVIANC Nona Moreno ~ Signed [facility] Work Phone: 1(863) 768-135404-17-2025 Consult note Author Shravan Coelho [facility] Note Date/Time July 05, 2024 7:1 0am [facility] Medical Records Department [address] [place] [address] Pre-Anesthesia Evaluation 07/05/24700 MR#: [id number] Acct: [id number] Name: DALLAS FARIAS Rep #:[id number] : 1985 39 From: Shravan Coelho MD PCP: WANG Najera Status:REG SD Y Race: C Location: [place] [address] ASA Classification* ASA Classification ASA Classification: 2 Assessment & Plan Anesthesia* Anesthesia Assessment Anesthesia Assessment: Discussed sedation and/or anesthesia options, risks, benefits, and alternatives with patient/parents/legal guardian/POA. Questions invited. The patient/parents/legal guardian/POA seems to understand and agrees to proceedwith anesthesia plan. Reviewed the physical assessment, medical history, allergy history and patient home medications list prior to surgery/procedure/anesthetic and documented any changes. Performed airway and anesthesia risk assessments. Anesthesia Type Anesthesia Type: General History Source History Obtained from:: Patient and Chart Anesthesia Focused Assessment* Temperature: 98.0 F Pulse Rate: 85 Blood Pressure: 120/79 Respiratory Rate: 16 Pulse Ox: 100 Oxygen Delivery Method: Room Air Airway Assessment Mouth opens: >3 cm Mallampati Score: II Teeth Condition: Caps/Crowns (Patient has 1 right lower crown on a molar. It istight.) Neck Range of motion (ROM): Full ROM Focused Labs Anesthesia Preop lab: CBC WBC 5.5 K/mm3 (4.4-11.0) 06/04/24 09:24 06/04/24 RBC 3.99 M/mm3 (4.2-5.4) L 06/04/24 09:24 06/04/24 Hgb 12.7 g/dL (12.0-15.0) 06/04/24 09:24 06/04/24 Hct 38.0 % (37-47) 06/04/24 09:24 06/04/24 Plt Count 235 K/mm3 (150-450) 06/04/24 09:24 06/04/24 CHEMISTRY Potassium 4.1 mmol/L (3.3-5.1) 06/04/24 09:24 06/04/24 Sodium 136 mmol/L (133-145) 06/04/24 09:24 06/04/24 BUN 13 mg/dL (4-19) 06/04/24 09:24 06/04/24 Creatinine 0.85 mg/dL (0.70-1.20) 06/04/24 09:24 06/04/24 Glucose 105 mg/dL (70-99) H 06/04/24 09:24 06/04/24 POC Glucose 96 mg/dL (74-106) 08/14/23 18:16 08/14/23 TSH 1.860 uIU/mL (0.300-4.200) 07/04/24 08:34 0409/12 COAG Urine Test Negative Negative 07/05/24 06:19 07/05/24 Pre-Assessment Diagnosis/Proposed Procedure Planned Operative Procedure(s): LAP CHOLEY WITH GRAMS Anesthesia History Anesthesia History - body bumper: Anesthesia History - body bumper Hx Hospitalization No 07/03/24 11:37 Any Problems With Anesthesia No 07/03/24 11:37 Cholinesterase deficiency No 07/03/24 11:37 You/Your Family Experience No 07/03/24 11:37 fever (hyperthermia) with Relationship Recent Exposure to Contagious No 07/05/24 06:40 Disease Does patient have nerve No 07/03/24 11:37 stimulator Patient instructed to have device shut off --Does patient have Pacemaker or ICD? When Was Last Pacemaker Check QUESTION #4 FULL TEXT: You/Your Family Experience fever (hyperthermia) with Anesthesia Last Oral Intake Last Oral intake: Last Oral Intake NPO since 00:00 07/05/24 06:43 Meds taken in AM with sips of No 07/05/24 06:43 water? 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 - body bumper: PONV - body bumper Female Yes 07/03/24 11:37 HX of Motion Sickness Yes 07/03/24 11:37 HX of N/V After Surgery No 07/03/24 11:37 Non-Smoker Yes 07/03/24 11:37 Duration of Surgery greater No 07/03/24 11:37 than 60 minutes Number of Risk Factors 3 07/03/24 11:37 PONV Score Moderate Risk 07/03/24 11:37 Height & Weight Height & Weight: Anesthesia: Height & Weight Height 5 ft 4 in 07/05/24 06:43 Weight: 79 kg 07/05/24 06:43 Body Mass Index (BMI) 29.9 07/05/24 06:43 Respiratory Assessment Respiratory Assessment - body bumper: Respiratory Tract Infection Hx - body bumper Hx Respiratory Tract Infection No 07/03/24 11:37 STOP Sleep Apnea STOP Sleep Apnea - body bumper: STOP Sleep Apnea - body bumper Hx Hypertension No 07/03/24 11:37 Hx Sleep Apnea No 07/03/24 11:37 CPAP BIPAP Do you snore loudly (louder Yes 07/03/24 11:37 than talking or can be heard Do you often feel tired/ No 07/03/24 11:37 fatigued/ sleepy during daytime? Has anyone observed you stop No 07/03/24 11:37 breathing during sleep? STOP Results Negative 07/03/24 11:37 QUESTION #5 FULL TEXT : Do you snore loudly (louder than talking or can be heard through closed doors)? 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 Specify any problems Hx of Preganancy in last 3 No 07/03/24 11:37 Months Nurse Filling Out Transfusion DSCHRIBER 07/03/24 11:37 & Questions: Date: 07/03/24 07/03/24 11:37 Time: 11:39 07/03/24 11:37 Patient unable to answer at this time (ie. 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 History - body bumper: /Reproductive Hx- body bumper Hx Now No 07/03/24 11:37 Gestational Age (in weeks): EDC: Hx Hx Para Hx Section SAB No 07/03/24 11:37 Active Medications Active Medications: Current Medications Generic Name Dose Route Start Last Admin Trade Name Freq PRN Reason Stop Dose Admin Cefotetan Disodium 2 gm/ 100 mls @ 200 mls/hr 07/05/24 07:30 Sodium Chloride IV 07/05/24 07:59 INTRAOP ONE Sodium Chloride 1,000 mls @ 15 mls/hr 07/05/24 06:15 07/05/24 06:42 IV 15 mls/hr .Q48H SAVANNAH Administration PFSH Medical History Anxiety Rheumatoid arthritis Back pain Syncope Gastric reflux Shortness of breath on exertion Leg cramps History of edema History of irregular heartbeat Wears glasses Alcohol use Anemia Migraine headache Dietary restriction History of IBS Former smoker History of echocardiogram Cardiology follow-up encounter Allergic dermatitis Depression PVC's (premature ventricular contractions) Palpitations Polyarthralgia Hypothyroidism History of prolactinoma Home Medications ?Medication ?Instructions ?Recorded ?Last Taken ?Type apple cider vinegar 300 mg tablet 300 mg PO DAILY 06/2007/03/24 History cholecalciferol (vitamin D3) 25 25 mcg PO DAILY 07/03/24 History mcg (1,000 unit) capsule folic acid 1 mg tablet 1 mg PO DAILY 07/12/2207/03 History levothyroxine 25 mcg tablet 25 mcg PO QODAY 07/12/22 0 07/03/24 History vitamin B complex (B 1 tab PO DAILY 07/12/2206/19 History Complex-Vitamin B12 tablet) melatonin 3 mg capsule 3 mg PO HS PRN sleep 3 07/03/24 History acetaminophen 325 mg tablet 650 mg PO Q4H PRN pain 07/03/24 History (Tylenol) turmeric (bulk) miscellaneous DAILY 07/05/24 07/03/24 History Allergy/AdvReac Type Severity Reaction Status Date / Time gluten Allergy Abd Verified 07/03/24 11:36 cramps/diarrhea Family History Mother Hearing loss Grandmother Diabetes Colon cancer PVC (premature ventricular contraction) Grandfather Diabetes Crohn's disease Heart disease Grandmother Alzheimers disease Surgical History H/O section Social History current occupation: [employer] Smoking Status: Former smoker how long ago did patient quit smokin alcohol intake: current substance use type: does not use caffeine: No frequency: daily Review of Systems (Anesthesia) ROS Narrative System reviewed and no additional complaints, except as documented. 07/05/24 0710 <Electronically signed by Shravan mullins MD> Date _ Shravan Coelho MD Cosigner Signature: Date CC: ~ Signed [facility] Work Phone: 1(700) 612-894104-17-2025 Radiology Diagnostic study note [facility] Imaging Services [address] [place], [place] [address] Cholangiogram/ O R,Initial MR#: [id number] Acct: [id number] Name: DALLAS FARIAS Rep #: [id number] : 1985 F 39 From: Khalif Galan MD PCP: WANG Najera Status: REG [facility] Study:Cholangiogram/ O R,Initial Date of Exam : 07/05/24 Exam# [id number] Ordering Dr: Christian Gramajo MD EXAM: Cholangiogram. CLINICAL HISTORY: Pain. COMPARISON: None. TECHNIQUE: Cholangiogram images are provided. Total exposure time 7.8 seconds. One cine run Total radiation dose 2.9 mGy FINDINGS: Cholangiogram was performed. No evidence of contrast leakage. Nondilated biliary tree. Nondilated pancreatic duct. RAD/Cholangiogram/ O R,Initial IMPRESSION: Nondilated biliary tree. Cholangiogram was performed. No contrast leakage. Reading [facility] CC: PATRICIO-America Moreno; Dr. Christian Hollins MD ~ Billposter: Signed [facility]04-17-2025 Discharge summary [facility] Medical Records Department [address] [place] [address] Instructions for Home/Discharge Instructions 07/05/24 0826 MR#: [id number] Acct: [id number] Name: DALLAS FARIAS Rep #:[id number] : 1985 39 From: Christian doll MD PCP: WANG Najera Status:REG [facility] Discharge Instructions Procedure Gallbladder Diet Discharge Diet: Light diet - advance as tolerated Activity Discharge Activity: May Not Drive (for 2-3 days or while taking narcotic pain medications.) and - (Do not drive, work heavy equipment or sign legal documents for 24 hours.) May shower in (days): 1 Lifting Restrictions: 20 lbs for 2 weeks Additional Activity Instructions:: Pain medication may cause nausea. You should typically eat lightfoods as you take your pain medications. Pain medication may also cause constipation. If this is a problem for you, please discuss with yourdoctor. Dressing / Incision Call your doctor if your incision/area has: Continuous Slow Oozing, Sudden Increased Bleeding, Increased Pain/ Swelling, Increased Redness and Foul Smelling Discharge Call your doctor if you observe: Fever of 101 or Higher Suture Line Care: Avoid Pulling/Pushing and Avoid Pinching/Bending Remove Dressing in: 2 days Additional Dressing/Incision Instructions:: Leave operative bandaids on for 2 days. When you removedressing, leave Steri-Strips on until your follow-up appointment, or until the Steri-Strips fall off on their own. Follow Up Care Please Follow Up With: Christian Hollins MD When: Please call to schedule 2 week follow up appointment. [phone] Test Results: Test results from this visit will be discussed in further detail at your follow- up appointment, if applicable. Discharge Plan Admission Attending Provider: Christian Hollins Primary Care Provider: Nona Moreno Instructions Print Language: Palestinian Discharge Orders/Prescriptions Prescriptions: New oxycodone 5 mg Tablet 5 - 10 mg PO Q4H PRN PRN (Reason: Pain Score 4-10) 5 Days Qty: 20 0RF No Action levothyroxine 25 mcg tablet 25 mcg PO QODAY Patient Comments: TAKE 1 TABLET BY MOUTH EVERY OTHER DAY cholecalciferol (vitamin D3) 25 mcg (1,000 unit) capsule 25 mcg PO DAILY folic acid 1 mg tablet 1 mg PO DAILY vitamin B complex [B Complex-Vitamin B12] Tablet 1 tab PO DAILY apple cider vinegar 300 mg tablet 300 mg PO DAILY melatonin 3 mg capsule 3 mg PO HS PRN (Reason: sleep) acetaminophen [Tylenol] 325 mg tablet 650 mg PO Q4H PRN (Reason: pain) turmeric (bulk) [Curcumin] miscellaneous DAILY Referrals / Follow Up: Nona Moreno, PATRICIO-C [Primary Care Provider] - Disposition Disposition (needs filled in before D/C Order can be placed): Home, Self Care 07/05/2427Christian Hollins MD CC: WANG Moreno ~ Signed [facility]04-17-2025 Procedure note [facility] Medical Records Department [address] [place] [address] Operative Report 07/05/24823 MR#: [id number] Acct: [id number] Name: DALLAS FARIAS Rep #:[id number] : 1985 39 From: Christian doll MD PCP: WANG Najera Status:REG [facility] Location: [place] [address] Operative Report (Standard) Operative Information Date of Procedure: 07/05/24 Pre-Operative Diagnosis: Biliary dyskinesia Post-Operative Diagnosis: Biliary dyskinesia Surgery/Procedure Performed: Laparoscopic cholecystectomy with cholangiograms filter operator: Yes Precision Thread Grinder Operator: Hector Alejandre Tasks completed by first assistant manager: Opening, Closing and Retracting Type of Anesthesia: General/Regional RN Documented Start/Stop Times: Operation Date: 07/05/24 07:30 Case Time Into Pre-Op 07/05/24 06:11 Out of Pre-Op 07/05/24 07:22 Anesthesia Start 07/05/24 07:24 Into Room 07/05/24 07:24 Procedure Start 07/05/24 07:46 Procedure Start Time: 07:46 Procedure Stop Time: 08:30 Select all DRAINS/GRAFTS/IMPLANTS that apply: None Estimated Blood Loss: 5 Specimen collected: Yes Description of specimen(s) removed: Gallbladder Description of surgery: After obtaining informed consent patient was brought back to the operating room. General anesthesiawas induced. The abdomen was prepped and draped in usual sterile fashion. A small midline incision was made superior to the umbilicus and deepened to the level of fascia. The fascia was elevated and incised. Nextthe peritoneum was elevated and incised in the same fashion. Finger sweep was performedand the Sapp trocar was placed into the abdomen. The balloon was inflated. The abdomen was inflated to 15 mmHg. Next a camera was introduced into the abdomen and the abdomen was inspected. Next under direct visualization three 5-mm ports were placed one subxiphoid and 2 subcostal. Next the gallbladder was elevated and retracted toward the right shoulder. The peritoneum was stripped from the gallbladder. The infundibulum was located and retracted laterally. Next the triangle of Calot was dissected and the cystic duct and cystic artery were identified. Cholangiograms were performed. The Kumarclamp was used to clamp across the infundibulum and the catheter needle was inserted into the gallbl adder. Under fluoroscopy contrast was instilled into the gallbladder and the common duct, cystic duct as well as proximal hepatic ducts were identified. There was good filling of the duodenum. There were no filling defects noted in the common bile duct. The clamp was removed as well as the needle and the infundibulum was grasped once more. Three hemolock clips were placed across the cystic duct. The cystic duct was then divided leaving 2 clips on the stump. The cystic artery was clipped and divided in the same fashion. The hook cautery was then used to take the gallbladder off of the gallbladder bed. Hemostasis was obtained. Gallbladder fossa was irrigated and no active bleeding or bile leakage was noted. Next the camera was introduced inthe subxiphoid port. An Endopouch bag was placed through the umbilical port andthe gallbladder was placed into it. The gallbladder was then removed through the umbilical incision. The camera was then reinserted through the umbilical port. The gallbladder fossa was inspected once more and noted to be hemostatic with no leaking bile. The abdomen was webber ctioned dry. The 5 mm ports were removed under direct visualization. The umbilical port was then removed and theair was removed from the abdomen. Next using an 0 Vicryl suture the umbilical fascia was closed in a [id number] fashion. The umbilical port site was irrigated local anesthetic was administered to all the incisions. All the incisions were closed with interrupted subcuticular 4-0 Monocryl sutures followed by Steri-Strips and dressings. The patient was awoken and taken to PACU in stable condition. Surgical Findings: Normal intraoperative cholangiogram's, wound class II Complications Complications: No Admit VTE Documentation VTE Mechan Device Prophylaxis: SCD's 07/05/24 0825 Cosigner Signature (if applicable): CC: WANG Moreno; Dr. Christian Hollins MD~ Signed [facility]04-17-2025 History and physical note Author Christian Hollins [facility] Note Date/Time July 05, 2024 6:0 9am [facility] Medical Records Department [address] [place] [address] History & Physical Exam 07/05/24 0608 MR#: [id number] Acct: [id number] Name: DALLAS FARIAS Rep #:[id number] : 1985 39 From: Christian doll MD PCP: WANG Najera Status:REG [facility] Location: [address] History and Physical Date of Admission: 07/05/24 Intake Vital Signs 11/30/2413:06 01/12/2413:55 Height 5 ft 4 in 5 ft 4 in Weight: 184 lb BMI 31.6 BP 133/76 H Blood Pressure Location Rt brachial Position Sitting Respiration 18 Intake Visit Reasons: ABNORMAL HIDA Chief Complaint: abn hida Buzzle Buffer Required: No Is patient in pain?: Yes (right ribs and ruq abd) Allergies gluten Allergy (Verified 01/13/24 13:57) Abd cramps/diarrhea Medications ?Medication ?Instructions ?Recorded ?Confirmed ?Type apple cider vinegar 300 mg tablet 300 mg PO DAILY 07/12/22 08/14/23 History cholecalciferol (vitamin D3) 25 25 mcg PO DAILY 07/12/22 08/14/23 History mcg (1,000 unit) capsule folic acid 1 mg tablet 1 mg PO DAILY 07/12/22 08/14/23 History levothyroxine 25 mcg tablet 25 mcg PO QODAY 07/12/22 01/13/24 History vitamin B complex (B 1 tab PO DAILY 07/12/22 01/13/24 History Complex-Vitamin B12 tablet) melatonin 3 mg capsule 3 mg PO HS PRN sleep 10/13/22 01/13/24 History ondansetron 4 mg disintegrating 4 mg PO Q8H PRN PRN Nausea #14 tabs 08/14/23 01/13/24 Rx tablet Have you fallen in the past year?: No PFSH Medical History Allergic dermatitis Depression IBS (irritable bowel syndrome) Weight gain PVC's (premature ventricular contractions) Palpitations Polyarthralgia Hypothyroidism History of prolactinoma Surgical History H/O section Family History Mother Hearing lossGrandmother Diabetes Colon cancer PVC (premature ventricular contraction)Grandfather Diabetes Crohn's disease Heart diseaseGrandmother Alzheimers disease Social History Smoking Status: Former smoker how long ago did patient quit smokin alcohol intake: current substance use type: does not use caffeine: No frequency: daily HPI HPI HPI: Patient is a 38-year-old female here for right upper quadrant pain. She says has been going on for several years. She had a HIDA back several years ago that showed an ejection fraction of 12% and they wanted to take her gallbladder out but she did not have the time or money to have surgery. She says that it hurts really badly when she eats unhealthy food. She also reports that it hurt reallybadly after the CCK injection during the HIDA. ROS General General: Yes weight change; No appetite, fatigue, colon cancer, breast cancer or weakness HEENT HEENT: No difficulty swallowing, eye injury, eye surgery, swollen glands or hoarseness Endo Endocrine: Yes thyroid disease; No diabetes mellitus, thyroid cancer, Hair loss, heat intolerance or cold intolerance Skin Skin: No rash or changing moles Breast Breast: No left breast lump, right breast lump, nipple discharge, breast pain, abnormal mammogram, abnormal US or breast enlargement Musc Musculoskeletal: Yes back problems and rheumatoid arthritis; No arthritis, gout or joint pain Cardio Cardiovascular: Yes murmur; No pacemaker, heart disease, atrial fibrillation, high blood pressure, heart attack, heart stent, palpitations, shortness of breat with exertion or chest pain Psych Psychiatric: No depression, anxiety or hearing voices Resp Respiratory: No shortness of breath, No sleep apnea, No cough, No COPD, No asthma, No emphysema and No wheezing Gastro Gastrointestinal: Yes abdominal pain, Yes nausea or vomiting, No diarrhea, Yes constipation, No blood in stool, No acid reflux, No hemorrhoids, No ulcers, Yes gallbladder problem and No black,tarry stools Santosh Hematologic: No blood thinners, No blood disorders, No bleeding, Yes anemia and No blood clots Neuro Neurologic: No system reviewed and no additional complaints, except as documented, No as per HPI, No abnormal gait, No abnormal hearing, No abnormal movements, No abnormal speech, No behavioral changes, No burning sensations, No confusion, No convulsions, No disequilibrium, No dizziness, No localized weakness, No frequent falls, No headache(s), No lack of coordination, No loss ofvision, No memory loss, No numbness, No other visual disturbances, No radicular pain, No restless legs, No sensory deficit, No syncope, No tingling, No tremor(s), No weakness and No other Exam Const General: cooperative Orientation: alert and oriented x3 HENMT Head: normal to inspection Neck Neck: normal visual inspection and full ROM Chest Chest palpation & inspection: normal inspection of the chest Resp Effort & Inspection: normal respiratory effort Auscultation: clear to auscultation bilaterally Cardio Rate: regular rate Rhythm: regular rhythm GI Inspection: non-distended Palpation: soft and nontender Skin General: no rashes or lesions noted Neuro General: patient alert and patient oriented x3 Extrem General: full ROM Psych Appearance: grossly normal Mental Status: mental status grossly normal Assessment and Plan Assessment and Plan (1) Biliary dyskinesia: Status: Acute Plan: I discussed the procedure in detail with the patient. I discussed the risks, benefits, and alternatives of the procedure. I discussed the risks including but not limited to bleeding, infection, injury to surrounding organs such as theliver, bile duct, bowels. I did discuss the possibility of having to convert nissa open procedure as well as the possibility that if any injuries occurred this may necessitate further surgery at a tertiary care center. Christian Hollins MD Pager: [facility] [address] [place] [address], [address] [place] [address] Office: I have seen the patient and examined and reviewed the H&P. There are no clinicalchanges 07/05/24 0609 <Electronically signed by Christian Hollins MD> Cosigner Signature (if applicable): CC: WANG Moreno; Dr. Christian Hollins MD~ Signed [facility] Work Phone: 1(606) 838-245604-17-2025 Consult note [facility] Medical Records Department [address] [place] [address] Pre-Anesthesia Evaluation 07/05/24 0701 MR#: [id number] Acct: [id number] Name: DALLAS FARIAS Rep #:[id number] : 1985 39 From: Shravan Coelho MD PCP: WANG Najera Status:REG SDC Y Race: C Location: [place] [address] ASA Classification* ASA Classification ASA Classification: 2 Assessment & Plan Anesthesia* Anesthesia Assessment Anesthesia Assessment: Discussed sedation and/or anesthesia options, risks, benefits, and alternatives with patient/parents/legal guardian/POA. Questions invited. The patient/parents/legal guardian/POA seems to understand and agrees to proceedwith anesthesia plan. Reviewed the physical assessment, medical history, allergy history and patient home medications list prior to surgery/procedure/anesthetic and documented any changes. Performed airway and anesthesia risk assessments. Anesthesia Type Anesthesia Type: General History Source History Obtained from:: Patient and Chart Anesthesia Focused Assessment* Temperature: 98.0 F Pulse Rate: 85 Blood Pressure: 120/79 Respiratory Rate: 16 Pulse Ox: 100 Oxygen Delivery Method: Room Air Airway Assessment Mouth opens: >3 cm Mallampati Score: II Teeth Condition: Caps/Crowns (Patient has 1 right lower crown on a molar. It istight.) Neck Range of motion (ROM): Full ROM Focused Labs Anesthesia Preop lab: CBC WBC 5.5 K/mm3 (4.4-11.0) 06/04/24 09:24 06/04/24 RBC 3.99 M/mm3 (4.2-5.4) L 06/04/24 09:24 06/04/24 Hgb 12.7 g/dL (12.0-15.0) 06/04/24 09:24 06/04/24 Hct 38.0 % (37-47) 06/04/24 09:24 06/04/24 Plt Count 235 K/mm3 (150-450) 06/04/24 09:24 06/04/24 CHEMISTRY Potassium 4.1 mmol/L (3.3-5.1) 06/04/24 09:24 06/04/24 Sodium 136 mmol/L (133-145) 06/04/24 09:24 06/04/24 BUN 13 mg/dL (4-19) 06/04/24 09:24 06/04/24 Creatinine 0.85 mg/dL (0.70-1.20) 06/04/24 09:24 06/04/24 Glucose 105 mg/dL (70-99) H 06/04/24 09:24 06/04/24 POC Glucose 96 mg/dL (74-106) 08/14/23 18:16 08/14/23 TSH 1.860 uIU/mL (0.300-4.200) 07/04/24 08:34 06/19 09/12 COAG Urine Test Negative Negative 07/05/24 06:19 07/05/24 Pre-Assessment Diagnosis/Proposed Procedure Planned Operative Procedure(s): LAP CHOLEY WITH GRAMS Anesthesia History Anesthesia History - body bumper: Anesthesia History - body bumper Hx Hospitalization No 07/03/24 11:37 Any Problems With Anesthesia No 07/03/24 11:37 Cholinesterase deficiency No 07/03/24 11:37 You/Your Family Experience No 07/03/24 11:37 fever (hyperthermia) with Relationship Recent Exposure to Contagious No 07/05/24 06:40 Disease Does patient have nerve No 07/03/24 11:37 stimulator Patient instructed to have device shut off --Does patient have Pacemaker or ICD? When Was Last Pacemaker Check QUESTION #4 FULL TEXT: You/Your Family Experience fever (hyperthermia) with Anesthesia Last Oral Intake Last Oral intake: Last Oral Intake NPO since 00:00 07/05/24 06:43 Meds taken in AM with sips of No 07/05/24 06:43 water? 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 - body bumper: PONV - body bumper Female Yes 07/03/24 11:37 HX of Motion Sickness Yes 07/03/24 11:37 HX of N/V After Surgery No 07/03/24 11:37 Non-Smoker Yes 07/03/24 11:37 Duration of Surgery greater No 07/03/24 11:37 than 60 minutes Number of Risk Factors 3 07/03/24 11:37 PONV Score Moderate Risk 07/03/24 11:37 Height & Weight Height & Weight: Anesthesia: Height & Weight Height 5 ft 4 in 07/05/24 06:43 Weight: 79 kg 07/05/24 06:43 Body Mass Index (BMI) 29.9 07/05/24 06:43 Respiratory Assessment Respiratory Assessment - body bumper: Respiratory Tract Infection Hx - body bumper Hx Respiratory Tract Infection No 07/03/24 11:37 STOP Sleep Apnea STOP Sleep Apnea - body bumper: STOP Sleep Apnea - body bumper Hx Hypertension No 07/03/24 11:37 Hx Sleep Apnea No 07/03/24 11:37 CPAP BIPAP Do you snore loudly (louder Yes 07/03/24 11:37 than talking or can be heard Do you often feel tired/ No 07/03/24 11:37 fatigued/ sleepy during daytime? Has anyone observed you stop No 07/03/24 11:37 breathing during sleep? STOP Results Negative 07/03/24 11:37 QUESTION #5 FULL TEXT : Do you snore loudly (louder than talking or can be heard through closeddoors)? 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 Specify any problems Hx of Preganancy in last 3 No 07/03/24 11:37 Months Nurse Filling Out Transfusion DSCHRIBER 07/03/24 11:37 & Questions: Date: 07/03/24 07/03/24 11:37 Time: 11:39 07/03/24 11:37 Patient unable to answer at this time (ie. 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 History - body bumper: /Reproductive Hx- body bumper Hx Now No 07/03/24 11:37 Gestational Age (in weeks): EDC: Hx Hx Para Hx Section SAB No 07/03/24 11:37 Active Medications Active Medications: Current Medications Generic Name Dose Route Start Last Admin Trade Name Freq PRN Reason Stop Dose Admin Cefotetan Disodium 2 gm/ 100 mls @ 200 mls/hr 07/05/24 07:30 Sodium Chloride IV 07/05/24 07:59 INTRAOP ONE Sodium Chloride 1,000 mls @ 15 mls/hr 07/05/24 06:15 07/05/24 06:42 IV 15 mls/hr .Q48H SAVANNAH Administration PFSH Medical History Anxiety Rheumatoid arthritis Back pain Syncope Gastric reflux Shortness of breath on exertion Leg cramps History of edema History of irregular heartbeat Wears glasses Alcohol use Anemia Migraine headache Dietary restriction History of IBS Former smoker History of echocardiogram Cardiology follow-up encounter Allergic dermatitis Depression PVC's (premature ventricular contractions) Palpitations Polyarthralgia Hypothyroidism History of prolactinoma Home Medications ?Medication ?Instructions ?Recorded ?Last Taken ?Type apple cider vinegar 300 mg tablet 300 mg PO DAILY 06/2007/03/24 History cholecalciferol (vitamin D3) 25 25 mcg PO DAILY 07/03/24 History mcg (1,000 unit) capsule folic acid 1 mg tablet 1 mg PO DAILY 07/12/2207/03 History levothyroxine 25 mcg tablet 25 mcg PO QODAY 07/12/22 0 07/03/24 History vitamin B complex (B 1 tab PO DAILY 07/12/2206/19 History Complex-Vitamin B12 tablet) melatonin 3 mg capsule 3 mg PO HS PRN sleep 3 07/03/24 History acetaminophen 325 mg tablet 650 mg PO Q4H PRN pain 07/03/24 History (Tylenol) turmeric (bulk) miscellaneous DAILY 07/05/24 07/03/24 History Allergy/AdvReac Type Severity Reaction Status Date / Time gluten Allergy Abd Verified 07/03/24 11:36 cramps/diarrhea Family History Mother Hearing loss Grandmother Diabetes Colon cancer PVC (premature ventricular contraction) Grandfather Diabetes Crohn's disease Heart disease Grandmother Alzheimers disease Surgical History H/O section Social History current occupation: [employer] Smoking Status: Former smoker how long ago did patient quit smokin alcohol intake: current substance use type: does not use caffeine: No frequency: daily Review of Systems (Anesthesia) ROS Narrative System reviewed and no additional complaints, except as documented. 07/05/24 0710 harpreet ALBRIGHT> Date _ Shravan Coelho MD Cosigner Signature: Date CC: ~ Signed [facility]04-17-2025 History and physical note [facility] Medical Records Department [address] [place] [address] History & Physical Exam 07/05/24 0608 MR#: [id number] Acct: [id number] Name: DALLAS FARIAS Rep #:[id number] : 1985 39 From: Christian doll MD PCP: WANG Najera [place] [place]: [place] [address] History and Physical Date of Admission: 07/05/24 Intake Vital Signs 11/30/2413:06 01/12/2413:55 Height 5 ft 4 in 5 ft 4 in Weight: 184 lb BMI 31.6 BP 133/76 H Blood Pressure Location Rt brachial Position Sitting Respiration 18 Intake Visit Reasons: ABNORMAL HIDA Chief Complaint: abn hida Buzzle Buffer Required: No Is patient in pain?: Yes (right ribs and ruq abd) Allergies gluten Allergy (Verified 01/13/24 13:57) Abd cramps/diarrhea Medications ?Medication ?Instructions ?Recorded ?Confirmed ?Type apple cider vinegar 300 mg tablet 300 mg PO DAILY 07/12/22 08/14/23 History cholecalciferol (vitamin D3) 25 25 mcg PO DAILY 07/12/22 08/14/23 History mcg (1,000 unit) capsule folic acid 1 mg tablet 1 mg PO DAILY 07/12/22 08/14/23 History levothyroxine 25 mcg tablet 25 mcg PO QODAY 07/12/22 01/13/24 History vitamin B complex (B 1 tab PO DAILY 07/12/22 01/13/24 History Complex-Vitamin B12 tablet) melatonin 3 mg capsule 3 mg PO HS PRN sleep 10/13/22 01/13/24 History ondansetron 4 mg disintegrating 4 mg PO Q8H PRN PRN Nausea #14 tabs 08/14/23 01/13/24 Rx tablet Have you fallen in the past year?: No PFSH Medical History Allergic dermatitis Depression IBS (irritable bowel syndrome) Weight gain PVC's (premature ventricular contractions) Palpitations Polyarthralgia Hypothyroidism History of prolactinoma Surgical History H/O section Family History Mother Hearing lossGrandmother Diabetes Colon cancer PVC (premature ventricular contraction)Grandfather Diabetes Crohn's disease Heart diseaseGrandmother Alzheimers disease Social History Smoking Status: Former smoker how long ago did patient quit smokin alcohol intake: current substance use type: does not use caffeine: No frequency: daily HPI HPI HPI: Patient is a 38-year-old female here for right upper quadrant pain. She says has been going on for several years. She had a HIDA back several years ago that showed an ejection fraction of 12% and they wanted to take her gallbladder out but she did not have the time or money to have surgery. She says that it hurts really badly when she eats unhealthy food. She also reports that it hurt reallybadlyafter the CCK injection during the HIDA. ROS General General: Yes weight change; No appetite, fatigue, colon cancer, breast cancer or weakness HEENT HEENT: No difficulty swallowing, eye injury, eye surgery, swollen glands or hoarseness Endo Endocrine: Yes thyroid disease; No diabetes mellitus, thyroid cancer, Hair loss, heat intolerance or cold intolerance Skin Skin: No rash or changing moles Breast Breast: No left breast lump, right breast lump, nipple discharge, breast pain, abnormal mammogram, abnormal US or breast enlargement Musc Musculoskeletal: Yes back problems and rheumatoid arthritis; No arthritis, gout or joint pain Cardio Cardiovascular: Yes murmur; No pacemaker, heart disease, atrial fibrillation, high blood pressure, heart attack, heart stent, palpitations, shortness of breat with exertion or chest pain Psych Psychiatric: No depression, anxiety or hearing voices Resp Respiratory: No shortness of breath, No sleep apnea, No cough, No COPD, No asthma, No emphysema andNo wheezing Gastro Gastrointestinal: Yes abdominal pain, Yes nausea or vomiting, No diarrhea, Yes constipation, No blood in stool, No acid reflux, No hemorrhoids, No ulcers, Yes gallbladder problem and No black,tarry stools Santosh Hematologic: No blood thinners, No blood disorders, No bleeding, Yes anemia and No blood clots Neuro Neurologic: No system reviewed and no additional complaints, except as documented, No as per HPI, No abnormal gait, No abnormal hearing, No abnormal movements, No abnormal speech, No behavioral changes, No burning sensations, No confusion, No convulsions, No disequilibrium, No dizziness, No localized weakness, No frequent falls, No headache(s), No lack of coordination, No loss ofvision, No memoryloss, No numbness, No other visual disturbances, No radicular pain, No restless legs, No sensory deficit, No syncope, No tingling, No tremor(s), No weakness and No other Exam Const General: cooperative Orientation: alert and oriented x3 [facility] Head: normal to inspection Neck Neck: normal visual inspection and full ROM Chest Chest palpation & inspection: normal inspection of the chest Resp Effort & Inspection: normal respiratory effort Auscultation: clear to auscultation bilaterally Cardio Rate: regular rate Rhythm: regular rhythm GI Inspection: non-distended Palpation: soft and nontender Skin General: no rashes or lesions noted Neuro General: patient alert and patient oriented x3 Extrem General: full ROM Psych Appearance: grossly normal Mental Status: mental status grossly normal Assessment and Plan Assessment and Plan (1) Biliary dyskinesia: Status: Acute Plan: I discussed the procedure in detail with the patient. I discussed the risks, benefits, and alternatives of the procedure. I discussed the risks including but not limited to bleeding, infection, injury to surrounding organs such as theliver, bile duct, bowels. I did discuss the possibility of havingto convert nissa open procedure as well as the possibility that if any injuries occurred this may necessitate further surgery at a tertiary care center. Christian Hollins MD Pager: [facility] [address], [address] [place] [address] Office: I have seen the patient and examined and reviewed the H&P. There are no clinicalchanges 07/05/24 0609 Cosigner Signature (if applicable): CC: WANG Moreno; Dr. Christian Hollins MD~ Signed [facility]04-17-2025 [facility] Medical Records Department [address] [place] [id number] History Physical Exam 07/05/24 0608 MR#: [id number] Acct: [id number] Name: DALLAS FARIAS Rep #: [id number] : 1985 39 From: Christian Hollins MD PCP: WANG Najera Status:[facility] Location: [place] [address] History and Physical Date of Admission: 07/05/24 Intake Vital Signs 11/30/2413:06 01/12/2413:55 Height 5 ft 4 in 5 ft 4 in Weight: 184 lb BMI 31.6 BP 133/76 H Blood Pressure Location Rt brachial Position Sitting Respiration 18 Intake Visit Reasons: ABNORMAL HIDA Chief Complaint: abn hida Buzzle Buffer Required: No Is patient in pain?: Yes (right ribs and ruq abd) Allergies gluten Allergy (Verified 01/13/24 13:57) Abd cramps/diarrhea Medications ???Medication ???Instructions ???Recorded ???Confirmed ???Type apple cider vinegar 300 mg tablet 300 mg PO DAILY 07/12/22 08/14/23 History cholecalciferol (vitamin D3) 25 25 mcg PO DAILY 07/12/22 08/14/23 History mcg (1,000 unit) capsule folic acid 1 mg tablet 1 mg PO DAILY 07/12/22 08/14/23 History levothyroxine 25 mcg tablet 25 mcg PO QODAY 07/12/22 01/13/24 History vitamin B complex (B 1 tab PO DAILY 07/12/22 01/13/24 History Complex-Vitamin B12 tablet) melatonin 3 mg capsule 3 mg PO HS PRN sleep 10/13/22 01/13/24 History ondansetron 4 mg disintegrating 4 mg PO Q8H PRN PRN Nausea #14 tabs 08/14/23 01/13/24 Rx tablet Have you fallen in the past year?: No PFSH Medical History Allergic dermatitis Depression IBS (irritable bowel syndrome) Weight gain PVC's (premature ventricular contractions) Palpitations Polyarthralgia Hypothyroidism History of prolactinoma Surgical History H/O section Family History Mother Hearing lossGrandmother Diabetes Colon cancer PVC (premature ventricular contraction)Grandfather Diabetes Crohn's disease Heart diseaseGrandmother Alzheimers disease Social History Smoking Status: Former smoker how long ago did patient quit smokin alcohol intake: current substance use type: does not use caffeine: No frequency: daily HPI HPI HPI: Patient is a 38-year-old female here for right upper quadrant pain. She says has been going on for several years. She had a HIDA back several years ago that showed an ejection fraction of 12% and they wanted to take her gallbladder out but she did not have the time or money to have surgery. She says that it hurts really badly when she eats unhealthy food. She also reports that it hurt really badly after the CCK injection during the HIDA. ROS General General: Yes weight change; No appetite, fatigue, colon cancer, breast cancer or weakness HEENT HEENT: No difficulty swallowing, eye injury, eye surgery, swollen glands or hoarseness Endo Endocrine: Yes thyroid disease; No diabetes mellitus, thyroid cancer, Hair loss, heat intolerance or cold intolerance Skin Skin: No rash or changing moles Breast Breast: No left breast lump, right breast lump, nipple discharge, breast pain, abnormal mammogram, abnormal US or breast enlargement Musc Musculoskeletal: Yes back problems and rheumatoid arthritis; No arthritis, gout or joint pain Cardio Cardiovascular: Yes murmur; No pacemaker, heart disease, atrial fibrillation, high blood pressure, heart attack, heart stent, palpitations, shortness of breat with exertion or chest pain Psych Psychiatric: No depression, anxiety or hearing voices Resp Respiratory: No shortness of breath, No sleep apnea, No cough, No COPD, No asthma, No emphysema and No wheezing Gastro Gastrointestinal: Yes abdominal pain, Yes nausea or vomiting, No diarrhea, Yes constipation, No blood in stool, No acid reflux, No hemorrhoids, No ulcers, Yes gallbladder problem and No black,tar ry stools Santosh Hematologic: No blood thinners, No blood disorders, No bleeding, Yes anemia and No blood clots Neuro Neurologic: No system reviewed and no additional complaints, except as documented, No as per HPI, No abnormal gait, No abnormal hearing, No abnormal movements, No abnormal speech, No behavioral changes, No burning sensations, No confusion, No convulsions, No disequilibrium, No dizziness, No localized weakness, No frequent falls, No headache(s), No lack of coordination, No loss of vision, No memory loss, No numbness, No other visual disturbances, No radicular pain, No restless legs, No sensory deficit, No syncope, No tingling, No tremor(s), No weakness and No other Exam Const General: cooperative Orientation: alert and oriented x3 HENMT Head: normal to inspection Neck Neck: normal (more content not included)...[facility]04-09-2025 Evaluation note* Diagnosis Onset Date Resolution Status Admit Date Biliary dyskinesia resolved June 27, 2024 2:19pm Biliary dyskinesia resolved July 12, 2024 4:07am S/P cholecystectomy acute July 272024 2:20pm Tick bite acute July 30, 2024 1:04pm Hot flashes acute July 31 1:21pm Encounter for routine gynecological examination noneactive July 312024 1:21pm [facility] Work Phone: 1(996) 233-394304-09-2025 Evaluation note* Diagnosis Onset Date Resolution Status Admit Date Biliary dyskinesia resolved June 27, 2024 2:19pm Biliary dyskinesia resolved July 12, 2024 4:07am S/P cholecystectomy acute July 272024 2:20pm Tick bite acute July 30, 2024 1:04pm Hot flashes acute July 31 1:21pm Encounter for routine gynecological examination noneactive July 312024 1:21pm Strain of left wrist acute September 27, 2024 5:13pm [facility] Work Phone: [phone] Evaluation note* Diagnosis Onset Date Resolution Status Admit Date Biliary dyskinesia resolved June 27, 2024 2:19pm Biliary dyskinesia resolved July 12, 2024 4:07am S/P cholecystectomy acute July 272024 2:20pm Tick bite acute July 30, 2024 1:04pm Hot flashes acute July 31 1:21pm Encounter for routine gynecological examination noneactive July 312024 1:21pm Strain of left wrist acute September 27, 2024 5:13pm Breast mass, right acute September 192024 1:45pm Breast mass, right acute October 19, 2024 2:48pm [place] [employer] Work Phone: 1(706) 240-208102-07-2025 Evaluation note* Diagnosis Onset Date Resolution Status Admit Date Breast mass in female acute b 2024 3:25pm [facility] Work Phone: 1(129) 916-302202-07-2025 Evaluation note* Diagnosis Onset Date Resolution Status Admit Date Breast mass in female acute b 2024 3:25pm Biliary dyskinesia acute June 27, 2024 2:19pm [facility] Work Phone: 1(505) 298-156602-07-2025 Evaluation note* Diagnosis Onset Date Resolution Status Admit Date Breast mass in female acute b 2024 3:25pm Biliary dyskinesia acute June 27, 2024 2:19pm Biliary dyskinesia acute July 12, 2024 4:07am [facility] Work Phone: [phone] Evaluation note* Diagnosis Onset Date Resolution Status Admit Date Breast mass in female acute b 2024 3:25pm Biliary dyskinesia resolved June 27, 2024 2:19pm Biliary dyskinesia resolved July 12, 2024 4:07am S/P cholecystectomy acute July 272024 2:20pm Tick bite acute July 30, 2024 1:04pm Encounter for routine gynecological examination noneactive July 312024 1:21pm [place] [employer] Work Phone: [phone]) 397-280902-07-2025 Evaluation note* Diagnosis Onset Date Resolution Status Admit Date Breast mass in female acute Feb ruary 2024 3:25pm Biliary dyskinesia resolved June 27, 2024 2:19pm Biliary dyskinesia resolved July 12, 2024 4:07am S/P cholecystectomy acute July 272024 2:20pm Tick bite acute July 30, 2024 1:04pm Hot flashes acute July 31 1:21pm Encounter for routine gynecological examination noneactive July 312024 1:21pm [facility] Work Phone: 1(989) 186-453209-10-2024 History of Present illness Narrative* RERE Thornton - 11/29/2023 9:45 AM EDT 38 y.o. female presents for evaluation of URI. Symptoms including cough, congestion, body aches, malaise, and headache have been present for 5-6 days and refractory to OTC meds. No fever, chills, nausea, vomiting, abdominal pain, CP, or SOB. No exacerbating factors. No known COVID 19/flu exposure. Vitals: 11/29/23 0954 BP: 108/76 Pulse: 90 Resp: 16 Temp: 36.7 C (98.1 F) SpO2: 96% Allergies Allergen Reactions Gluten Unknown Medication Documentation Review Audit Reviewed by RERE Thornton (Nurse Practitioner) on 11/29/23 at 1005 Medication Order Taking? Sig Documenting Provider Last Dose Status albuterol 90 mcg/actuation inhaler [id number] Inhale 2 puffs every 6 hours if needed for wheezing. RERE Thornton Active azithromycin (Zithromax Z-Keon) 250 mg tablet [id number] Take 2 tablets (500 mg) on Day 1, followed by 1 tablet (250 mg) once daily on Days 2 through 5. RERE Thornton Active b complex vitamins capsule [id number] Yes Take by mouth. Historical Provider, Taking Active B complex with C-folic acid (Nephronex) 900 mcg/5 mL liquid [id number] Yes Historical Provider, Taking Active vikzqjnosc-qwrpmrtecaaih-hmaz 50-325-40 mg tablet [id number] Yes Take 1 tablet by mouth every 4 hours if needed for headaches. Use no more than 5/day, 10/week, 30/month. Walter Hermosillo PA-C Taking Active cholecalciferol (Vitamin D-3) 25 MCG (1000 UT) tablet [id number] Yes Take 1 tablet (25 mcg) by mouth once daily. Historical Provider, Taking Active ketoconazole (NIZOral) 2 % shampoo [id number] Yes 1 APPLICATION DIRECTED 2-3 TIMES/WEEK. LATHER AND LEAVE ON SCALP FOR 5-10MIN, THEN RINSE Historical Provider, Taking Active levothyroxine (Synthroid, Levoxyl) 25 mcg tablet [id number] Yes Take 1 tablet (25 mcg) by mouth every other day. RERE Enriquez Taking Active melatonin 3 mg capsule [id number] Yes Take by mouth. Historical Provider, Taking Active methylPREDNISolone (Medrol Dospak) 4 mg tablets [id number] Take as directed on package. RERE Thornton Active multivitamin tablet [id number] Yes Take 1 tablet by mouth once daily. Historical Provider, Taking Active sulfaSALAzine (Azulfidine) [address] tablet [id number] Yes Take 1 tablet (500 mg) by mouth 2 times aday. Historical Provider, Taking Active TURMERIC ORAL [id number] Yes Take by mouth. Historical Provider, Taking Active Past Medical History: Diagnosis Date Biliary colic 07/02/2022 Encounter for delivery without indication ([facility]) Delivery of by section Encounter for gynecological examination (general) (routine) without abnormal findings Pap test, as part of routine gynecological examination Hair loss 07/02/2022 Menorrhagia with regular cycle 07/02/2022 Other conditions influencing health status Menstruation Personal history of other infectious and parasitic diseases History of HPV infection Past Surgical History: Procedure Laterality Date OTHER SURGICAL HISTORY 10/07/2021 section OTHER SURGICAL HISTORY 10/07/2021 Cervical cryosurgery ROS See HPI Physical Exam Vitals and nursing note reviewed. Constitutional: General: She is not in acute distress. Appearance: Normal appearance. She is ill-appearing (mildly). HENT: Head: Normocephalic and atraumatic. Right Ear: Tympanic membrane and ear canal normal. Left Ear: Tympanic membrane and ear canal normal. Nose: Congestion present. Mouth/Throat: Mouth: Mucous membranes are moist. Pharynx: Oropharynx is clear. Eyes: Extraocular Movements: Extraocular movements intact. Conjunctiva/sclera: Conjunctivae normal. Pupils: Pupils are equal, round, and reactive to light. Cardiovascular: Rate and Rhythm: Normal rate. Pulmonary: Effort: Pulmonary effort is normal. Breath sounds: Normal breath sounds. Comments: Dry cough Lymphadenopathy: Cervical: No cervical adenopathy. Skin: General: Skin is warm and dry. Neurological: General: No focal deficit present. Mental Status: She is alert and oriented to person, place, and time. Psychiatric: Mood and Affect: Mood normal. Behavior: Behavior normal. Assessment/Plan/MDM Dallas was seen today for uri. Diagnoses and all orders for this visit: Acute bronchitis, unspecified organism (Primary) - azithromycin (Zithromax Z-Keon) 250 mg tablet; Take 2 tablets (500 mg) on Day 1, followed by 1 tablet (250 mg) once daily on Days 2 through 5. - methylPREDNISolone (Medrol Dospak) 4 mg tablets; Take as directed on package. - albuterol 90 mcg/actuation inhaler; Inhale 2 puffs every 6 hours if needed for wheezing. Encouraged pt to continue otc cold remedies PRN, push PO fluids and rest. Patient's clinical presentation is otherwise unremarkable at this time. Patient is discharged with instructions to follow-up with primary care or seek emergency medical attention for worsening symptoms or any new concerns. I did personally review Dallas's past medical history, surgical history, social history, as well as family history (when relevant). In this case, I also oversaw the her drug management by reviewing her medication list, allergy list, as well as the medications that I prescribed during the UC course and/or recommended as an out-patient (including possible OTC medications such as acetaminophen, NSAIDs , etc). After reviewing the items above, I did not look at previous medical documentation, such as recent hospitalizations, office visits, and/or recent consultations with PCP/specialist. SDOH: Another factor that I considered in Dallas's care was her Social Determinants of Health (SDOH). During this UC encounter, she did not have social determinants of health. Those SDOH influencing Dallas's care are: none Delmar Jones CNP [facility] [phone] documented in this [facility] Work Phone: 1(176) 713-198812-11-2023 History of Present illness Narrative* Walter Hermosillo PA-C - 02/28/2023 2:30 PM EST Subjective Patient ID: Dallas Farias is a 37 y.o. female who presents for Follow-up ( [facility] on 02-26-23, for migraines. Patient states Migraines [...] 117/81 Pulse 69 Ht 1.638 m (5' 4.5) Wt 83.1 kg (183 lb 1.6 oz) [...] History of prolactinoma - Primary Relevant Medications qfgeklunjt-ufizoagoutwgf-cbff 50-325-40 mg tablet Other Relevant Orders MR brain w and wo IV contrast Acute intractable headache, unspecified headache type Relevant Medications bylavmhimo-styjpbmtppffz-tezd 50-325-40 mg tablet Other Relevant Orders MR brain w and wo IV contrast Final diagnoses: [Z86.018] History of prolactinoma [R51.9] Acute intractable headache, unspecified headache type documented in this [facility] Work Phone: 1(590) 213-189110-06-2023 NotePap Smear Specimen AdequacyOctober 2022 10:55amComment.Satisfactory for evaluation. Endocervical and/or squamous metaplasticcells (endocervical component)are present.[facility] A#[id number] North Health Center on above:Satisfactory for evaluation. Endocervical and/or squamous metaplasticcells (endocervical component)are present.12-24-2022 NotePap Smear Specimen AdequacyOctober 2022 10:55amComment.Satisfactory for evaluation. Endocervical and/or squamous metaplasticcells (endocervical component)are present.[facility] A#[id number] North Health Center on above:Satisfactory for evaluation. Endocervical and/or squamous metaplasticcells (endocervical component)are present.12-24-2022 NotePap Smear Specimen AdequacyOctober 2022 9:55amComment.Satisfactory for evaluation. Endocervical and/or squamous metaplasticcells (endocervical component)are present.[facility] INTER[facility]AC[facility] A#[id number] Health Willard HospitalCommymichigan medical center on above:Satisfactory for evaluation. Endocervical and/or squamous metaplasticcells (endocervical component)are present.12-24-2022 NotePap Smear Specimen AdequacyOctober 2022 9:55amComment.Satisfactory for evaluation. Endocervical and/or squamous metaplasticcells (endocervical component)are present.[facility] INTER[facility]AC[facility] A#[id number] Community HospitalComment on above:Satisfactory for evaluation. Endocervical and/or squamous metaplasticcells (endocervical component)are present.07-26-2022 History of Present illness Narrative* Walter Hermosillo PA-C - 07/26/2022 4:30 PM EDT Subjective Patient ID: Dallas Farias is a 37 y.o. female who presents [...] Patient reports prior diagnosis of PVCs but isconcerned about the frequency and intensity of the [...] 116/75 Pulse 87 Ht 1.651 m (5' 5) Wt 81.6 kg (180 lb) SpO2 98% [...] - Primary Relevant Orders Holter or Event Catalog Library Assistant Polyarthralgia Relevant Orders MARY with Reflex to JENNIFER High sensitivity CRP Sedimentation Rate Anti-T3 Autoantibody Anti-T4 Autoantibody Deamidated Gliadin Antibody IgA Rheumatoid factor Referral to Endocrinology Weight gain Relevant Orders Referral to Endocrinology Final diagnoses: [R00.2] Intermittent palpitations [M25.50] Polyarthralgia [E03.8] Subclinical hypothyroidism [R63.5] Weight gain documented in this [facility] Work Phone: 1(423) 732-836512-16-2022 History of Present illness NarrativePatient presents for evaluation of facial rash. Patient reports onset 2 to 3 weeks ago after using witch rosalio astringent for cleansing. Patient treated that particular instance with CeraVe and it improved. Patient went swimming in a pool shortly thereafter and the rash became significantly more inflamed, pruritic, and slightly tender. Patient has been managing symptoms with djbh-uph-vwsspgi hydrocortisone cream with some success. No prior similar incidents. Patient does report other areas of similar but less intense outbreaks on the legs during the wintertime. No other complaints.[facility] Work Phone: 1([phone]) 374-597309-01-2022 NoteHNO ID: [id number] Author: Ingrid Perez MD Service: ? Author Type: Physician Type: Progress Notes Filed: 11/23/2021 11:07 AM Note Text: Dallas Farias 1985 REFERRING PHYSICIAN: MD Salvador CHIEF COMPLAINT: [...] She was evaluated by GI medicine in [facility] study - 05/31/2021 - this is a [...] She was seen by general surgery at [facility] and had been scheduled for cholecystectomy. PAST MEDICAL HISTORY Diagnosis Date Asymptomatic varicose veins Disorder of thyroid History of prolactinoma IBS (irritable bowel syndrome) 2009 Non-celiac gluten sensitivity PAST SURGICAL HISTORY Procedure Laterality Date SECTION HX 2017 Cervical cryosurgery 2009 Current Outpatient Medications Medication Sig B Complex-Vitamin [...] entered by the nurse and reviewed by il Nursing Notes: Andreea Pate 11/19/2021 10:49 AM [...] TSH and normal thyroid US 10/07/2021 from [facility] - reviewed by me, denies diabetes, and denies hormonal problems. Hematologic: The patient denies a history of bruising, denies bleeding, and denies anemia, denies blood clots. Infections: The patient denies a history of measles and mumps, denies rheumatic fever, and denies sexually transmitted diseases. Musculoskeletal: The patient denies back (more content not included)...[facility]09-01-2022 History of Present illness Narrative* Ingrid Perez MD - 11/19/2021 4:03 PM EDT Dallas Farias 1985 REFERRING PHYSICIAN: MD Salvador CHIEF COMPLAINT: [...] She was evaluated by GI medicine in [place] [facility] study - 05/31/2021 - this is [...] She was seen by general surgery at [facility] and had been scheduled for cholecystectomy. PAST MEDICAL HISTORY Diagnosis Date Asymptomatic varicose veins Disorder of thyroid History of prolactinoma IBS (irritable bowel syndrome) 2009 Non-celiac gluten sensitivity PAST SURGICAL HISTORY Procedure [...] entered by the nurse and reviewed by il Nursing Notes: Andreea Pate 11/19/2021 10:49 AM Signed REVIEW OF SYSTEMS: General: The patient denies fatigue, NOTES weight loss, denies weight gain, denies feeling hot, andNOTES feelings of cold. Eyes: The patient denies [...] TSH and normal thyroid US 10/07/2021 from [facility] - reviewed by me, denies diabetes, and denies hormonal problems. Hematologic: The patient denies a history of bruising, denies bleeding, and denies anemia, denies blood clots. Infections: The patient denies a history of measles and mumps, denies rheumatic fever, and denies sexually transmitted diseases. Musculoskeletal: The patient denies back pain/injury, denies back problems, denies sciatica, deniesknee/foot trouble, denies arthritis, or denies gout. When was patient's last Mammogram screening? 2012 Last Colonoscopy: None Andreea Pate PHYSICAL EXAMINATION: General: The patient is 36 year old female, well nourished, well hydrated in no acute distress. Thepatient is oriented to time, place, and person. VITALS: Blood pressure 119/77, pulse 77, temperature 37.1 C (98.7 F), height 165.1 cm (5' 5), weight 69.4 kg (153 lb), SpO2 98 [...] Low Ingrid Perez MD [facility] Nurse Note* Andreea Pate - 11/19/2021 10:44 AM EDT REVIEW OF SYSTEMS: General: The patient denies fatigue, NOTES weight loss, denies weight gain, denies feeling hot, andNOTES feelings of cold. Eyes: The patient denies [...] back pain/injury, denies back problems, denies sciatica, deniesknee/foot trouble, denies arthritis, or denies gout. When was patient's last Mammogram screening? 2011 Last Colonoscopy: None Andreea Pate documented in this [facility]07-20-2021 History of Present illness NarrativePatient presents stating that she has noticed that her menstrual flows have become heavy with clotsover the last year. Patient states that her menstrual flows became heavy after she received the COVID vaccination. The heavy flow gradually improved until she became COVID-positive in July 2021 for which her menstrual flows once again became very heavy. Patient had a pelvic ultrasound performed which was normal earlier this year in [place] prior to her moving to [place]. She is currently using condoms for contraception. She denies any bowel or bladder problems.[place] [address] [address] Work Phone: consult note Author Fede Ronquillo [facility] Note Date/Time July 05, 2024 11: 48am [facility] Medical Records Department [address] [place] [address] Anesthesia Postop Eval I 07/05/24 1147 MR#: [id number] Acct: [id number] Name: DALLAS FARIAS Rep #:[id number] : 1985 39 From: Fede bullock CRNA PCP: VIVIAN NajeraC Status:REG [facility] Race: C Location: [place] [address] Anesthesia: Postop Eval I Current Vital Signs Temperature: 97.4 F Pulse Rate: 59 Blood Pressure: 117/75 Respiratory Rate: 18 Pulse Ox: 100 Oxygen Delivery Method: Room Air Assessment Airway patent: Yes Spontaneous unlabored respirations: Yes nausea: No Vomiting: No Anesthesia Complication: No Fluid Hydration Crystalloid volume administer (ml): 1,000 Total IV fluid infused: 1,000 Progress Note Anesthesia document: Postop Eval 1 completed: Yes 07/05/24 1148 <Electronically signed by Fede wyatt CRNA> Date _ Fede Ronquillo CRNA Cosigner Signature: Date CC: ~ Signed [facility] Work Phone: Evaluation note* Diagnosis Epigastric abdominal pain- Primary Abdominal pain, epigastric Abnormal biliary HIDA scan Nonspecific abnormal results of other specified function study documented in this encounter [facility] noteNo assessment information availableWGerman Hospital Work Phone: Evaluation note* Diagnosis Intermittent palpitations- Primary Polyarthralgia Pain in joint, multiple sites Subclinical hypothyroidism Other specified acquired hypothyroidism Weight gain Other symptoms concerning nutrition, metabolism, and development documented in this encounter [facility] Work Phone: Evaluation note* Diagnosis Onset Date Resolution Status Patellofemoral syndrome, right acute [facility] Work Phone: Evaluation note* Diagnosis Onset Date Resolution Status Patellofemoral syndrome, right acute Allergic dermatitis acute PVC's (premature ventricular contractions) acute [facility] Work Phone: Evaluation note* Diagnosis Onset Date Resolution Status Allergic dermatitis acute PVC's (premature ventricular contractions) acute Chronic cbhv-AJDQY-[address] acute Heavy menses acute Post-COVID chronic joint pain acute Screen for STD (sexually transmitted disease) acute Women's annual routine gynecological examination acute [facility] Work Phone: Evaluation note* Diagnosis History of prolactinoma- Primary Acute intractable headache, unspecified headache type documented in this encounter [facility] Work Phone: Evaluation note* Diagnosis Onset Date Resolution Status Chronic cgwm-CAQYQ-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 acute Decreased sex drive acute Heavy menses acute Post-COVID chronic joint pain acute Screen for STD (sexually transmitted disease) acute Women's annual routine gynecological examination acute Cough acute [facility] Work Phone: Evaluation note* Diagnosis Acute bronchitis, unspecified organism- Primary documented in this encounter [facility] Work Phone: Evaluation note* Diagnosis Atypical chest pain- Primary Other chest pain Hypokalemia Hypopotassemia documented in this encounter [facility] Work Phone: Evaluation note* Diagnosis Right upper quadrant abdominal pain- Primary documented in this encounter [facility] Work Phone: History of Present illness Narrative* Patient presents to [facility]. * Currently, patient takes no daily [...] years. Patient was evaluated by endocrinology in [place] who stated the patient was okay with [...] it was recently exacerbated by moved from [place] back to [place], illness, and general worsening of the symptoms themselves. With further discussion, patient rep orts periods of profound sadness, irritability, crying spells that are unprovoked, general lack of vish, and this is reportedly affecting family life. * Incidentally, patient also has gallbladder disease. Patient underwent HIDA scan prior to moving to [place] which showed an ejection fraction of 12%. Patient has been able to manage this fairly well withdiet modifications. Patient also has history of IBD per endoscopy and gastroenterology. [facility] Work Phone: History of Present illness Narrative* Patient presents to [facility]. * Currently, patient takes no daily [...] years. Patient was evaluated by endocrinology in [place] who stated the patient was okay with [...] it was recently exacerbated by moved from [place] back to [place], illness, and general worsening of the symptoms themselves. With further discussion, patient rep orts periods of profound sadness, irritability, crying spells that are unprovoked, general lack of vish, and this is reportedly affecting family life. * Incidentally, patient also has gallbladder disease. Patient underwent HIDA scan prior to moving to [place] which showed an ejection fraction of 12%. Patient has been able to manage this fairly well withdiet modifications. Patient also has history of IBD per endoscopy and gastroenterology. [facility] Work Phone: History of Present illness Narrative* Patient presents to establish care. * Currently, patient takes no daily [...] years. Patient was evaluated by endocrinology in [place] who stated the patient was okay with [...] it was recently exacerbated by moved from [place] back to [place], illness, and general worsening of the symptoms themselves. With further discussion, patient rep orts periods of profound sadness, irritability, crying spells that are unprovoked, general lack of vish, and this is reportedly affecting family life. * Incidentally, patient also has gallbladder disease. Patient underwent HIDA scan prior to moving to [place] which showed an ejection fraction of 12%. Patient has been able to manage this fairly well withdiet modifications. Patient also has history of IBD per endoscopy and gastroenterology. [facility] Work Phone: History of Present illness Narrative* Patient presents to establish care. * Currently, patient takes no daily [...] years. Patient was evaluated by endocrinology in [place] who stated the patient was okay with [...] it was recently exacerbated by moved from [place] back to [place], illness, and general worsening of the symptoms themselves. With further discussion, patient rep orts periods of profound sadness, irritability, crying spells that are unprovoked, general lack of vish, and this is reportedly affecting family life. * Incidentally, patient also has gallbladder disease. Patient underwent HIDA scan prior to moving to [place] which showed an ejection fraction of 12%. Patient has been able to manage this fairly well withdiet modifications. Patient also has history of IBD per endoscopy and gastroenterology. [facility] Work Phone: Hospital Discharge instructions* Attachments The following attachments cannot be sent through Care Everywhere. * Chest Pain, Adult ED (Palestinian) documented in [facility] Work Phone: Progress note Author Christian Hollins [facility] Note Date/Time July 12, 2024 3:1 0pm [facility] Medical Records Department [address] [facility] [place] [address] Progress Note 07/12/24 1509 MR#: [id number] Acct: [id number] Name: DALLAS FARIAS Rep #:[id number] : 1985 39 From: Christian doll MD PCP: WANG Najera Status:ADM IN [facility] Note The patient had a HIDA scan today which was negative for bile leak. So now she has had a CT scan which was essentially normal and normal labs and normal HIDA. I do not believe there is anything going on besides postoperative pain. I will discharge her home today. She will follow-up with me in the office unless she has increasing pain and she will call me sooner. Christian Hollins MD Pager: [facility] [address] [place] [address], [address] [place] [address] Office: 07/12/24 1510 <Electronically signed by Christian Hollins MD> Christian Hollins MD Cosigner Signature (if applicable): CC: ~ Signed [facility] Work Phone: Reason for referral (narrative)* Consultation (Routine) - Authorized Specialty Diagnoses / Procedures Referred By Narayan t Referred To Contact Endocrinology Diagnoses Polyarthralgia Subclinical hypothyroidism Weight gain Procedures NM OFFICE/OUTPATIENT [facility] MDM 60-74 MINUTES Walter Hermosillo PA-C [address] [facility] [place] [address] Referral ID Status Reason Start Date Expiration Date Visits Requested Visits Authorized [id number] Authorized Specialty Services Required 07/26/2022 01/22/2023 1 1 * Cardiac Stress Testing (Routine) - Authorized Specialty Diagnoses / Procedures Referred By Narayan mohr Referred To Contact Cardiology Diagnoses Intermittent palpitations Procedures Holter or Event Catalog Library Assistant Walter Hermosillo PA-C [address] [facility] [place] [address] Referral ID Status Reason Start Date Expiration Date V isits Requested Visits Authorized [id number] Authorized 07/26/2022 01/22/2023 1 1 [facility] Work Phone: Reason for referral (narrative)No reason for referral information availableWGerman Hospital Work Phone: Chief Complaint * 36 y/o female 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 CLEANER to discuss thyroid * Pt states she [...] well * She was told by a Cable Tester her symptoms seem to be related to [...] * 36 y/o female 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 to discuss thyroid * Pt states she [...] well * She was told by a Cable Tester her symptoms seem to be related to [...] LMP:09/27/21.* 36 y/o female 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 Itchy. Family History Unknown Family Member Name Dates Details Family [...] cardiac di sorder: Maternal Grandfather(V17.49, Z82.49) Status:Active Relationship Condition Age at Onset Recorded Date/T jaun Not Specified Malignant neoplasm of colon Unknown High blood cholesterol Unknown Arthritis Unknown Relationship Condition Age at Onset Recorded Date/T jaun mother Hearing loss Unknown grandmother Diabetes mellitus Unknown Malignant neoplasm of colon Unknown Ventricular premature beats Unknown grandfather Diabetes mellitus Unknown Crohn's disease Unknown Cardiac disease Unknown grandmother Alzheimer's disease Unknown Summary Purpose Advance Directives Advance Directive Response Recorded Date/ Time Living Will No April 04 11:20am Power of Certified Alcohol And Drug Counselor No April 04, 2022 11:20am Advance Directive Response Recorded Date/ Time Living Will No April 04 12:20pm Power of Certified Alcohol And Drug Counselor No April 04, 2022 12:20pm Advance Directive Response Recorded Date/ Time Living Will No February 26 2:49pm Power of Certified Alcohol And Drug Counselor No February 26, 2023 2:49pm Advance Directive Response Recorded Date/ Time Living Will No February 26 3:49pm Power of Certified Alcohol And Drug Counselor No February 26, 2023 3:49pm Advance Directive Response Recorded Date/ Time Living Will No July 03, 2024 11:37am Do you have a Healthcare Power of Certified Alcohol And Drug Counselor? No July 03, 2024 11:37am Advance Directive Response Recorded Date/ Time Do you have a Healthcare Power of Certified Alcohol And Drug Counselor? No July 12, 2024 3:46am Living Will No July 03, 2024 11:37am Do you have a Healthcare Power of Certified Alcohol And Drug Counselor? 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) ref by Walter Hermosillo @ [facility] Reason for Visit Allergic dermatitis PVC's (premature ventricular contractions) Chronic ncme-VSWKH-[address] Heavy menses Post-COVID chronic joint pain Screen for STD (sexually transmitted disease) Women's annual routine gynecological examination Chief Complaint RASH/BILAT ARMS PALP (NEWBILL) ARRYHTHMIA 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) ref by Walter Hermosillo @ [facility] Reason for Visit Allergic dermatitis PVC's (premature ventricular contractions) Chronic jixu-LHKMC-[address] Heavy menses Post-COVID chronic joint pain Screen for STD (sexually transmitted disease) Women's annual routine gynecological examination Chief Complaint 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) ref by Walter Hermosillo @ [facility] [address] [employer] CONGESTED DIZZINESS PROLACTINOMA Reason for Visit Chronic hegn-VSOBA-7 [address] Heavy menses Post-COVID chronic joint pain Screen for STD (sexually transmitted disease) Women's annual routine gynecological examination Cough Chief Complaint DIZZINESS PROLACTINOMA PAIN- COPY PCP Chief Complaint Admit Date SCREENING FOR CVS CONDITION March 8:10am Right breast lump April 27, 2024 3 :25pm BREAST LUMP RT April 30, 2024 9:11am Reason for Visit Admit Date Breast mass in female April 27, 2024 3:25pm Chief Complaint Admit Date SCREENING FOR CVS CONDITION March 8:10am Right breast lump April 27, 2024 3 :25pm BREAST LUMP RT April 30, 2024 9:11am UPDATE H&P - GALLBLADDER SURGERY June 272024 2:19pm Laparoscopic, Cholecystectomy with IOC A pril 2024 6:01am Laparoscopic, Cholecystectomy with IOC A pril 2024 6:08am Reason for Visit Admit Date Breast mass in female April 27, 2024 3:25pm Biliary dyskinesia June 27, 2024 2:19 pm Chief Complaint Admit Date SCREENING FOR CVS CONDITION March 8:10am Right breast lump April 27, 2024 3 :25pm BREAST LUMP RT April 30, 2024 9:11am UPDATE H&P - GALLBLADDER SURGERY June 272024 2:19pm Laparoscopic, Cholecystectomy with IOC A pril 2024 6:01am Laparoscopic, Cholecystectomy with IOC A pril 2024 6:08am ABDOMINAL PAIN July 12, 2024 4:0 7am ABDOMINAL PAIN July 12, 2024 8:2 0am Reason for Visit Admit Date Breast mass in female April 27, 2024 3:25pm Biliary dyskinesia June 27, 2024 2:19 pm Biliary dyskinesia July 12, 2024 4:0 7am Chief Complaint Admit Date Right breast lump April 27, 2024 3 :25pm BREAST LUMP RT April 30, 2024 9:11am UPDATE H&P - GALLBLADDER SURGERY June 272024 2:19pm Laparoscopic, Cholecystectomy with IOC A pril 2024 6:01am Laparoscopic, Cholecystectomy with IOC A pril 2024 6:08am ABDOMINAL PAIN July 12, 2024 4:0 7am ABDOMINAL PAIN July 12, 2024 8:2 0am LAP ELIZABETH DOS 07/05July 27, 2024 2:20pm TICK BITE ON R KNEE July 30, 2024 1:04p m 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) July 31, 2024 1:21p m Reason for Visit Admit Date Breast mass in female April 27, 2024 3:25pm Biliary dyskinesia June 27, 2024 2:19 pm Biliary dyskinesia July 12, 2024 4:0 7am S/P cholecystectomy July 27, 2024 2:20pm Tick bite July 30, 2024 1:04p m Encounter for routine gynecological exam ination July 31, 2024 1:21pm Reason for Visit Admit Date Breast mass in female April 27, 2024 3:25pm Biliary dyskinesia June 27, 2024 2:19 pm Biliary dyskinesia July 12, 2024 4:0 7am S/P cholecystectomy July 27, 2024 2:20pm Tick bite July 30, 2024 1:04p m Hot flashes July 31, 2024 1:21p m Encounter for routine gynecological exam ination July 31, 2024 1:21pm Chief Complaint Admit Date UPDATE H&P - GALLBLADDER SURGERY June 272024 2:19pm Laparoscopic, Cholecystectomy with IOC A pril 2024 6:01am Laparoscopic, Cholecystectomy with IOC A pril 2024 6:08am ABDOMINAL PAIN July 12, 2024 4:0 7am ABDOMINAL PAIN July 12, 2024 8:2 0am LAP ELIZABETH DOS 07/05July 27, 2024 2:20pm TICK BITE ON R KNEE July 30, 2024 1:04p m 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) July 31, 2024 1:21p m Reason for Visit Admit Date Biliary dyskinesia June 27, 2024 2:19 pm Biliary dyskinesia July 12, 2024 4:0 7am S/P cholecystectomy July 27, 2024 2:20pm Tick bite July 30, 2024 1:04p m Hot flashes July 31, 2024 1:21p m Encounter for routine gynecological exam ination July 31, 2024 1:21pm Chief Complaint Admit Date UPDATE H&P - GALLBLADDER SURGERY June 272024 2:19pm Laparoscopic, Cholecystectomy with IOC A pri2024 6:01am Laparoscopic, Cholecystectomy with IOC A pril 2024 6:08am ABDOMINAL PAIN July 12, 2024 4:0 7am ABDOMINAL PAIN July 12, 2024 8:2 0am LAP ELIZABETH DOS 07/05July 27, 2024 2:20pm TICK BITE ON R KNEE July 30, 2024 1:04p m 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) July 31, 2024 1:21p m L WRIST INJURY September 27, 2024 5:13 pm Reason for Visit Admit Date Biliary dyskinesia June 27, 2024 2:19 pm Biliary dyskinesia July 12, 2024 4:0 7am S/P cholecystectomy May 9th, 2025 2:20pm Tick bite July 30, 2024 1:04p m Hot flashes July 31, 2024 1:21p m Encounter for routine gynecological exam ination July 31, 2024 1:21pm Strain of left wrist September 27, 2024 5:1 3pm Chief Complaint Admit Date UPDATE H&P - GALLBLADDER SURGERY June 272024 2:19pm Laparoscopic, Cholecystectomy with IOC A pril 2024 6:01am Laparoscopic, Cholecystectomy with IOC A pril 2024 6:08am ABDOMINAL PAIN July 12, 2024 4:0 7am ABDOMINAL PAIN July 12, 2024 8:2 0am LAP ELIZABETH DOS 07/05July 27, 2024 2:20pm TICK BITE ON R KNEE July 30, 2024 1:04p m 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) July 31, 2024 1:21p m L WRIST INJURY September 27, 2024 5:13 pm R Breast Lump painful, red, warm, mild s welling October 09, 2024 1:45pm Chief Complaint Admit Date UPDATE H&P - GALLBLADDER SURGERY June 272024 2:19pm Laparoscopic, Cholecystectomy with IOC A pril 2024 6:01am Laparoscopic, Cholecystectomy with IOC A pril 2024 6:08am ABDOMINAL PAIN July 12, 2024 4:0 7am ABDOMINAL PAIN July 12, 2024 8:2 0am LAP ELIZABETH DOS 07/05July 27, 2024 2:20pm TICK BITE ON R KNEE July 30, 2024 1:04p m 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) July 31, 2024 1:21p m L WRIST INJURY September 27, 2024 5:13 pm R Breast Lump painful, red, warm, mild s welling October 09, 2024 1:45pm RT BREAST MASS October 16, 2024 9:12 am BIRADS 4 October 19, 2024 2:4 8pm RIGHT BREAST MASS October 19, 2024 3:3 5pm Reason for Visit Admit Date Biliary dyskinesia June 27, 2024 2:19 pm Biliary dyskinesia July 12, 2024 4:0 7am S/P cholecystectomy July 27, 2024 2:20pm Tick bite July 30, 2024 1:04p m Hot flashes July 31, 2024 1:21p m Encounter for routine gynecological exam ination July 31, 2024 1:21pm Strain of left wrist September 27, 2024 5:1 3pm Breast mass, right October 09, 2024 1:45 pm Breast mass, right October 19, 2024 2:4 8pm Reason for Referral Specialty Diagnoses / Procedures Referred By Narayan t Referred To Contact Radiology Diagnoses History of prolactinoma Acute intractable headache, unspecified headache type Procedures MR brain w and wo IV contrast Walter Hermosillo PA-C [address] [facility] [address] Referral ID Status Reason Start Date Expiration Date Visits Requested Visits Authorized [id number] Pending Review Perform Procedure 3 02/28/2024 1 1 Additional Source Comments <item> Privacy Markings (unrecogniz ed section and content) Section Author: Karly Echavarria PROHIBITION ON REDISCLOSURE OF CONFIDENTIAL INFORMATION This notice accompanies a disclosure of information concerning a client made to you with the consent of such client. INFORMATION SOURCE (unrecogn ized section and content) DATE CREATED AUTHOR 11/12/2021 [employer] DATE CREATED AUTHOR AUTHOR'S ORGANIZ ATION 11/23/2021 [facility] DATE CREATED AUTHOR AUTHOR'S ORGANIZ ATION 11/11/2022 [facility] DATE CREATED AUTHOR AUTHOR'S ORGANIZ ATION 11/11/2022 [facility] DATE CREATED AUTHOR AUTHOR'S ORGANIZ ATION 11/23/[address] [facility] DATE CREATED AUTHOR AUTHOR'S ORGANIZ ATION 07/13/2024 [facility] DATE CREATED AUTHOR AUTHOR'S ORGANIZ ATION 07/17/2024 [facility] DATE CREATED AUTHOR AUTHOR'S ORGANIZ ATION 10/17/2024 [facility] Source Comments (unrecognize d section and content) In the event this informatio n is protected by the Federal Confidentiality of Alcohol and Drug Abuse Patient Records regulations: The Federal rules restrict any use of the information to criminally investigate or prosecute any alcohol or drug abuse patient.[facility] Reason for Visit (unrecogniz ed section and content) Reason Comments Consult Gallbladder Reason Comments Follow-up Gaining a lot of noelle ght. Swelling in legs, primarily left leg. Was told in the past that she had PVC's. Reason Comments Follow-up FU [facility] on 02-26-23, for migraines. Patient states Migraines started Tuesday night, having pressure of the left eye with discomfort intermittently. Reason Comments URI Fever, body ache, ch ills, sweats, fatigued, cough, x 5 days Reason Comments Chest Pain Chest pain started S atday, Radiates to left arm, feels SOB and fatigue. Pt states today she felt like she was going to pass out. -denies cough. Reason Comments Abdominal Pain Dizziness Pt. Reports having g allbladder removed 1wk ago, states she feels as if she was doing to much this evening and now 8/10 RUQ pain, feeling dizzy/diaphoretic Care Teams (unrecognized sec tion and content) Team Status: Active Member Role Status Dates LLOYD Ceballos Primary Care Provider Active Team Status: Inactive Member Role Status Dates Don DESAI PA Attending Provider Active Team Status: Inactive Member Role Status Dates Dr. Josesito Levine MD Attending Provider Active Team Status: Inactive Member Role Status Dates LLOYD Ceballos Primary Care Provider, Referring Pro vider Active Dr. Josesito Levine MD Attending Provider Active Team Status: Inactive Member Role Status Dates LLOYD Ceballos Primary Care Provider, Referring Pro vider Active Saroj DESAI PA Attending Provider Active Team Status: Active Member Role Status Dates LLOYD Ceballos Primary Care Provider Active Dr. Josesito Levine MD Attending Provider Active Team Status: Inactive Member Role Status Dates LLOYD Bhardwaj Attending Provider, Referring Prov ider Active Team Status: Inactive Member Role Status Dates LLOYD Ceballos Primary Care Provide r, Attending Provider, Referring Provider Active Team Status: Inactive Member Role Status Dates LLOYD Ceballos Primary Care Provider Active Dr. Josesito Levine MD Attending Provider, Referring Pro vider Active Round Kiln Drawer Relationship Specialty Start Date End Date Walter Hermosillo PA-C [address] [place] [address] PCP - General Hematology/Oncology 11/12/21 [employer] Drawer Relationship Specialty Start Date End Date Walter Hermosillo PA-C [address] [facility] [place] [address] PCP - General 09/30/21 Team Status: Active Member Role Status Dates Dr. Vahe Becker MD Attending Provider Active Dr. Binh Porter DO Referring Provider Active Team Status: Inactive Member Role Status Dates Dr. Binh Porter DO Attending Provider, Emergency P rovider Active Team Status: Active Member Role Status Dates LLOYD Bhardwaj Attending Provider, Referring Prov ider Active Team Status: Inactive Member Role Status Dates LLOYD Ceballos Primary Care Provider, Referring Pro vider Active Priscilla Khan CNM Attending Provider Active Team Status: Inactive Member Role Status Dates LLOYD Ceballos Primary Care Provider Active Priscilla Khan CNM Attending Provider, Referring Pr ovider Active Team Status: Inactive Member Role Status Dates LLOYD Ceballos Primary Care Provider Active Dr. Rea Nuñez MD Attending Provider, Referring Provider Active [employer] Drawer Relationship Specialty Start Date End Date Walter Hermosillo PA-C [address] [facility] [place] [address] PCP - General 09/30/21 Belinda Reynoso APRN-TERRAZZO GRINDER [address] [address] PCP - Jillian EDWARDSO PCP 04/21/22 Team Status: Inactive Member Role Status Dates LLOYD Ceballos Primary Care Provider, Referring Pro vider Active Brady Velázquez KILN CLEANER, KILN CLEANER-C Attending Provider Active Team Status: Inactive Member Role Status Dates LLOYD Ceballos Primary Care Provider Active Dr. Hector Salamanca MD Attending Provider, Emergency Pro vider Active Team Status: Active Member Role Status Dates Dr. Pat Ceballos , Primary Care Provider Active Team Status: Inactive Member Role Status Dates Dr. Rea Nuñez MD Attending Provider, Referring Provider Active Dr. Pat Ceballos , Primary Care Provider Active Team Status: Inactive Member Role Status Dates Dr. Pat Ceballos , Primary Care Provider Active Dr. Rea Nuñez MD Attending Provider, Referring Provider Active [employer]n Drawer Relationship Specialty Start Date End Date Nona Moreno INFRASTRUCTURE DESIGN ENGINEER-TERRAZZO GRINDER [address] [facility] [place] [id number] PCP - General Family Medicine 10/13/23 Round Kiln Drawer Relationship Specialty Start Date End Date Nona Moreno INFRASTRUCTURE DESIGN ENGINEER-TERRAZZO GRINDER [address] [facility] [place] [address] PCP - General Family Medicine 10/13/23 Round Kiln Drawer Relationship Specialty Start Date End Date Nona Moreno, INFRASTRUCTURE DESIGN ENGINEER-TERRAZZO GRINDER [address] [facility] [place] [address] PCP - General Family Medicine 10/13/23 Team Status: Active Member Role Status Dates WANG Najera Primary Care Provider Active Team Status: Inactive Member Role Status Dates WANG Najera Primary Care Provider Active Start: March 30, 2024 End: March 30, 2024 WANG Najera Attending Provider Active St art: March 30, 2024 End: March 30, 2024 WANG Najera Referring Provider Active St art: March 30, 2024 End: March 30, 2024 Team Status: Inactive Member Role Status Dates WANG Najera Primary Care Provider Active Start: April 13, 2024 End: April 13, 2024 Dr. Rea Nuñez MD Attending Provider Active Start: April 13, 2024 End: April 13, 2024 Dr. Rea Nuñez MD Referring Provider Active Start: April 13, 2024 End: April 13, 2024 Team Status: Inactive Member Role Status Dates WANG Najera Primary Care Provider Active Start: April 27, 2024 End: April 27, 2024 WANG Najera Referring Provider Active St art: April 27, 2024 End: April 27, 2024 Priscilla Khan CNM Attending Provider Active Start: April 27, 2024 End: April 27, 2024 Team Status: Inactive Member Role Status Dates WANG Najera Primary Care Provider Active Start: April 30, 2024 End: April 30, 2024 Priscilla Khan CNM Attending Provider Active Start: April 30, 2024 End: April 30, 2024 Priscilla Khan CNM Referring Provider Active Start: April 30, 2024 End: April 30, 2024 Team Status: Inactive Member Role Status Dates WANG Najera Primary Care Provider Active Start: June 04, 2024 End: June 04, 2024 Dr. Rea Nuñez MD Attending Provider Active Start: June 04, 2024 End: June 04, 2024 Dr. Rea Nuñez MD Referring Provider Active Start: June 04, 2024 End: June 04, 2024 Team Status: Inactive Member Role Status Dates WANG Najera Primary Care Provider Active Start: June 27, 2024 End: June 27, 2024 WANG Najera Referring Provider Active St art: June 27, 2024 End: June 27, 2024 RYLEE HuntC Attending Provider Active Start: June 27, 2024 End: June 27, 2024 Team Status: Inactive Member Role Status Dates WANG Najera Primary Care Provider Active Start: July 05, 2024 End: July 05, 2024 Dr. Christian Hollins MD Attending Provider Active Start: July 05, 2024 End: July 05, 2024 Dr. Christian Hollins MD Referring Provider Active Start: July 05, 2024 End: July 05, 2024 Team Status: Active Member Role Status Dates WANG Najera Primary Care Provider Active Start: July 05, 2024 Dr. Christian Hollins MD Attending Provider Active Start: July 05, 2024 Dr. Christian Hollins MD Referring Provider Active Start: July 05, 2024 Dr. Christian Hollins MD Other Provider Active Start: July 05, 2024 Round Kiln Drawer Relationship Specialty Start Date End Date Nona Moreno, INFRASTRUCTURE DESIGN ENGINEER-TERRAZZO GRINDER [address] [facility] [address] PCP - General Family Medicine 10/13/23 Team Status: Inactive Member Role Status Dates WANG Najera Primary Care Provider Active Start: July 12, 2024 End: July 12, 2024 Dr. Juan Antonio Hinkle MD Admit Provider Active Sta rt: July 12, 2024 End: July 12, 2024 Dr. Juan Antonio Hinkle MD Attending Provider Active Start: July 12, 2024 End: July 12, 2024 Team Status: Active Member Role Status Dates WANG Najera Primary Care Provider Active Start: July 12, 2024 Dr. Juan Antonio Hinkle MD Admit Provider Active Sta rt: July 12, 2024 Dr. Juan Antonio Hinkle MD Other Provider Active Sta rt: July 12, 2024 Dr. Christian Hollins MD Attending Provider Active Start: July 12, 2024 Team Status: Inactive Member Role Status Dates WANG Najera Primary Care Provider Active Start: July 27, 2024 End: July 27, 2024 WANG Najera Referring Provider Active St art: July 27, 2024 End: July 27, 2024 Dr. Christian Hollins MD Attending Provider Active Start: July 27, 2024 End: July 27, 2024 Team Status: Inactive Member Role Status Dates Nona Moreno KILN CLEANER-C Primary Care Provider Active Start: July 30, 2024 End: July 30, 2024 Nona Mroeno NP-C Referring Provider Active St art: July 30, 2024 End: July 30, 2024 Saroj Solis PA, PA Attending Provider Active Start: July 30, 2024 End: July 30, 2024 Team Status: Inactive Member Role Status Dates Nona Moreno KILN CLEANER-C Primary Care Provider Active Start: July 31, 2024 End: July 31, 2024 Nona oMreno NP-C Referring Provider Active St art: July 31, 2024 End: July 31, 2024 Priscilla Khan CNM Attending Provider Active Start: July 31, 2024 End: July 31, 2024 Team Status: Active Member Role Status Dates Nona Moreno KILN CLEANER-C Primary Care Provider Active Start: July 31, 2024 Priscilla Khan CNM Attending Provider Active Start: July 31, 2024 Priscilla Khan CNM Referring Provider Active Start: July 31, 2024 Team Status: Inactive Member Role Status Dates Nona Moreno NP-C Primary Care Provider Active Start: July 31, 2024 End: July 31, 2024 Priscilla Khan CNM Attending Provider Active Start: July 31, 2024 End: July 31, 2024 Priscilla Khan CNM Referring Provider Active Start: July 31, 2024 End: July 31, 2024 Team Status: Inactive Member Role Status Dates Nona Moreno NP-C Primary Care Provider Active Start: August 31, 2024 End: August 31, 2024 Dr. Rea Nuñez MD Attending Provider Active Start: August 31, 2024 End: August 31, 2024 Dr. Rea Nuñez MD Referring Provider Active Start: August 31, 2024 End: August 31, 2024 Team Status: Active Member Role/Relationship Status Dates Nona Moreno KILN CLEANER-C Primary Care Provider Active Team Status: Inactive Member Role/Relationship Status Dates Nona Moreno NP-C Primary Care Provider Active Start: June 04, 2024 End: June 04, 2024 Dr. Rea Nuñez MD Attending Provider Active Start: June 04, 2024 End: June 04, 2024 Dr. Rea Nuñez MD Referring Provider Active Start: June 04, 2024 End: June 04, 2024 Team Status: Inactive Member Role/Relationship Status Dates Nona Moreno KILN CLEANER-C Primary Care Provider Active Start: June 27, 2024 End: June 27, 2024 Nona Moreno NP-C Referring Provider Active St art: June 27, 2024 End: June 27, 2024 RYLEE HuntC Attending Provider Active Start: June 27, 2024 End: June 27, 2024 Team Status: Inactive Member Role/Relationship Status Dates Nona Moreno NP-C Primary Care Provider Active Start: July 05, 2024 End: July 05, 2024 Dr. Christian Hollins MD Attending Provider Active Start: July 05, 2024 End: July 05, 2024 Dr. Christian Hollins MD Referring Provider Active Start: July 05, 2024 End: July 05, 2024 Team Status: Active Member Role/Relationship Status Dates Nona Moreno NP-C Primary Care Provider Active Start: July 05, 2024 Dr. Christian Hollins MD Attending Provider Active Start: July 05, 2024 Dr. Christian Hollins MD Referring Provider Active Start: July 05, 2024 Dr. Christian Hollins MD Other Provider Active Start: July 05, 2024 Team Status: Inactive Member Role/Relationship Status Dates Nona Moreno NP-C Primary Care Provider Active Start: July 12, 2024 End: July 12, 2024 Dr. Juan Antonio Hinkle MD Admit Provider Active Sta rt: July 12, 2024 End: July 12, 2024 Dr. Juan Antonio Hinkle MD Attending Provider Active Start: July 12, 2024 End: July 12, 2024 Team Status: Active Member Role/Relationship Status Dates Nona Moreno NP-C Primary Care Provider Active Start: July 12, 2024 Dr. Juan Antonio Hinkle MD Admit Provider Active Sta rt: July 12, 2024 Dr. Juan Antonio Hinkle MD Other Provider Active Sta rt: July 12, 2024 Dr. Christian Hollins MD Attending Provider Active Start: July 12, 2024 Team Status: Inactive Member Role/Relationship Status Dates Nona Moreno KILN CLEANER-C Primary Care Provider Active Start: July 27, 2024 End: July 27, 2024 Nona Moreno NP-C Referring Provider Active St art: July 27, 2024 End: July 27, 2024 Dr. Christian Hollins MD Attending Provider Active Start: July 27, 2024 End: July 27, 2024 Team Status: Inactive Member Role/Relationship Status Dates Nona Moreno KILN CLEANER-C Primary Care Provider Active Start: July 30, 2024 End: July 30, 2024 Nona Moreno KILN CLEANER-C Referring Provider Active St art: July 30, 2024 End: July 30, 2024 Saroj DESAI, PA Attending Provider Active Start: July 30, 2024 End: July 30, 2024 Team Status: Inactive Member Role/Relationship Status Dates Nona Moreno KILN CLEANER-C Primary Care Provider Active Start: July 31, 2024 End: July 31, 2024 Nona Moreno NP-C Referring Provider Active St art: July 31, 2024 End: July 31, 2024 Priscilla Khan CNM Attending Provider Active Start: July 31, 2024 End: July 31, 2024 Team Status: Inactive Member Role/Relationship Status Dates Nona Moreno NP-C Primary Care Provider Active Start: July 31, 2024 End: July 31, 2024 Priscilla Khan CNM Attending Provider Active Start: July 31, 2024 End: July 31, 2024 Priscilla Khan CNM Referring Provider Active Start: July 31, 2024 End: July 31, 2024 Team Status: Inactive Member Role/Relationship Status Dates Nona Moreno NP-C Primary Care Provider Active Start: August 31, 2024 End: August 31, 2024 Dr. Rea Nuñez MD Attending Provider Active Start: August 31, 2024 End: August 31, 2024 Dr. Rea Nuñez MD Referring Provider Active Start: August 31, 2024 End: August 31, 2024 Team Status: Active Member Role/Relationship Status Dates Nona Moreno NP-C Primary Care Provider Active Start: September 27, 2024 Gualberto DESAI, PA Attending Provider Active Sta rt: September 27, 2024 LLOYD Bill Referring Provider Active Sta rt: September 27, 2024 Team Status: Inactive Member Role/Relationship Status Dates Nona Moreno NP-C Primary Care Provider Active Start: September 27, 2024 End: September 27, 2024 Nona Moreno NP-C Referring Provider Active St art: September 27, 2024 End: September 27, 2024 LLOYD Bill Attending Provider Active Sta rt: September 27, 2024 End: September 27, 2024 Team Status: Inactive Member Role/Relationship Status Dates Nona Moreno NP-C Primary Care Provider Active Start: June 27, 2024 End: June 27, 2024 Nona Moreno NP-C Referring Provider Active St art: June 27, 2024 End: June 27, 2024 LLOYD Hunt-C Attending Provider Active Start: June 27, 2024 End: June 27, 2024 Team Status: Inactive Member Role/Relationship Status Dates Nona Moreno NP-C Primary Care Provider Active Start: July 05, 2024 End: July 05, 2024 Dr. Christian Hollins MD Attending Provider Active Start: July 05, 2024 End: July 05, 2024 Dr. Christian Hollins MD Referring Provider Active Start: July 05, 2024 End: July 05, 2024 Team Status: Active Member Role/Relationship Status Dates Nona Moreno NP-C Primary Care Provider Active Start: July 05, 2024 Dr. Christian oHllins MD Attending Provider Active Start: July 05, 2024 Dr. Christian Hollins MD Referring Provider Active Start: July 05, 2024 Dr. Christian Hollins MD Other Provider Active Start: July 05, 2024 Team Status: Inactive Member Role/Relationship Status Dates Nona Moreno NP-C Primary Care Provider Active Start: July 12, 2024 End: July 12, 2024 Dr. Juan Antonio Hinkle MD Admit Provider Active Sta rt: July 12, 2024 End: July 12, 2024 Dr. Juan Antonio Hinkle MD Attending Provider Active Start: July 12, 2024 End: July 12, 2024 Team Status: Active Member Role/Relationship Status Dates Nona Tiffanie , KILN CLEANER-C Primary Care Provider Active Start: July 12, 2024 Dr. Juan Antonio Hinkle MD Admit Provider Active Sta rt: July 12, 2024 Dr. Juan Antonio Hinkle MD Other Provider Active Sta rt: July 12, 2024 Dr. Christian Hollins MD Attending Provider Active Start: July 12, 2024 Team Status: Inactive Member Role/Relationship Status Dates Nona Moreno KILN CLEANER-C Primary Care Provider Active Start: July 27, 2024 End: July 27, 2024 Nona Moreno KILN CLEANER-C Referring Provider Active St art: July 27, 2024 End: July 27, 2024 Dr. Christian Hollins MD Attending Provider Active Start: July 27, 2024 End: July 27, 2024 Team Status: Inactive Member Role/Relationship Status Dates Nona Moreno KILN CLEANER-C Primary Care Provider Active Start: July 30, 2024 End: July 30, 2024 Nona Moreno KILN CLEANER-C Referring Provider Active St art: July 30, 2024 End: July 30, 2024 Saroj Solis PA, PA Attending Provider Active Start: July 30, 2024 End: July 30, 2024 Team Status: Inactive Member Role/Relationship Status Dates Nona Moreno NP-C Primary Care Provider Active Start: July 31, 2024 End: July 31, 2024 Nona Moreno NP-C Referring Provider Active St art: July 31, 2024 End: July 31, 2024 Priscilla Khan CNM Attending Provider Active Start: July 31, 2024 End: July 31, 2024 Team Status: Inactive Member Role/Relationship Status Dates Nona Moreno KILN CLEANER-C Primary Care Provider Active Start: July 31, 2024 End: July 31, 2024 Priscilla Khan CNM Attending Provider Active Start: July 31, 2024 End: July 31, 2024 Priscilla Khan CNM Referring Provider Active Start: July 31, 2024 End: July 31, 2024 Team Status: Inactive Member Role/Relationship Status Dates Nona Moreno KILN CLEANER-C Primary Care Provider Active Start: August 31, 2024 End: August 31, 2024 Dr. Rea Nuñez MD Attending Provider Active Start: August 31, 2024 End: August 31, 2024 Dr. Rea Nuñez MD Referring Provider Active Start: August 31, 2024 End: August 31, 2024 Team Status: Inactive Member Role/Relationship Status Dates Nona Moreno KILN CLEANER-C Primary Care Provider Active Start: September 27, 2024 End: September 27, 2024 Gualberto DESAI PA Attending Provider Active Sta rt: September 27, 2024 End: September 27, 2024 LLOYD Bill Referring Provider Active Sta rt: September 27, 2024 End: September 27, 2024 Team Status: Inactive Member Role/Relationship Status Dates Nona Moreno KILN CLEANER-C Primary Care Provider Active Start: September 27, 2024 End: September 27, 2024 Nona Moreno [employer] CLE[employer]ER-C Referring Provider Active St art: September 27, 2024 End: September 27, 2024 LLOYD Bill Attending Provider Active Sta rt: September 27, 2024 End: September 27, 2024 Team Status: Inactive Member Role/Relationship Status Dates Nona Moreno [employer]ER-C Primary Care Provider Active Start: October 09, 2024 End: October 09, 2024 Nona Moreno [employer]-C Referring Provider Active St art: October 09, 2024 End: October 09, 2024 Norma Dash [employer]ER, [employer]C Attending Provider Active Start: October 09, 2024 End: October 09, 2024 Team Status: Active Member Role/Relationship Status Dates Nona Moreno [employer]ER-C Primary Care Provider Active Start: October 16, 2024 Noram Dsah K[employer]N CLE[employer]ER, [employer]-C Attending Provider Active Start: October 16, 2024 Norma Dash [employer] CLE[employer]ER, [employer]-C Referring Provider Active Start: October 16, 2024 Team Status: Inactive Member Role/Relationship Status Dates Nona Moreno NP-C Primary Care Provider Active Start: October 19, 2024 End: October 19, 2024 Nona Moreno NP-C Referring Provider Active St art: October 19, 2024 End: October 19, 2024 Dr. Christian Hollins MD Attending Provider Active Start: October 19, 2024 End: October 19, 2024 Team Status: Active Member Role/Relationship Status Dates Nona Moreno [employer]-C Primary Care Provider Active Start: October 19, 2024 Dr. Christian Hollins MD Attending Provider Active Start: October 19, 2024 Dr. Christian Hollins MD Referring Provider Active Start: October 19, 2024 Goals (unrecognized section and content) Goals may be documented in a n alternate sectionGoals may be documented in an alternate sectionGoals may be documented in an alternate sectionGoals may be documented in an alternate sectionGoals may be documented in an alternate sectionGoals may be documented in an alternate sectionGoals may be documented in an alternate sectionGoals may be documented in an alternate sectionGoals may be documented in an alternate section Scheduled Active and Recently Administ ered Medications (unrecognized section and content) Medication Order 06/10/2024 06/11/2024 06/12/2024 hydrOXYzine HCL (Atarax) tablet 25 mg 25 mg, oral, Once, On Tue06/12/24 at 1740, For 1 dose 2015 (Not Given - Pr ovider: Smita Prado RN - Reason: Patient/family refused) ondansetron (Zofran) injection 4 mg (COMPLETED) 4 mg, intravenous, Once, On Tue06/12/24 at 192, For 1 dose, When administering via IV Push, administer over 3-5 minutes. 1921 (Given - Provid er: Dalia Ramos RN) potassium chloride CR (Klor-Con M20) ER tablet 40 mEq (COMPLETED) 40 mEq, oral, Once, On Tue06/12/24 at 2000, For 1 dose, Best given with food and a glass of water to minimize gastric irritation. Do not crush or chew. 1999 (Given - Provid er: Renetta Diane RN) sodium chloride 0.9 % bolus 1,000 mL (COMPLETED) 1,000 mL, intravenous, at 999 mL/hr, Administer over 60 Minutes, Once, On Tue06/12/24 at 1840, For 1 dose 184 (New Bag - Prov ider: Dalia Ramos RN)1921 (Stopped - Provider: Dalia Ramos RN) Scheduled Medication Order 07/10/2024 07/11/2024 07/12/2024 iohexol (OMNIPaque) 350 mg iodine/mL solution 70 mL (COMPLETED) 70 mL, intravenous, Once in imaging, Starting on Tue07/11/24 at 2158, For 1 dose 2151 (Given - Provider: Amado Baron) morphine injection 4 mg (COMPLETED) 4 mg, intravenous, Once, On Tue07/11/24 at 2054, For 1 dose 2056 (Given - Provider: Antonella López RN) morphine injection 4 mg (COMPLETED) 4 mg, intravenous, Once, On Tue07/11/24 at 2235, For 1 dose 2240 (Given - Provider: Antonella López RN) ondansetron (Zofran) injection 4 mg (COMPLETED) 4 mg, intravenous, Once, On Tue07/11/24 at 205, For 1 dose, When administering via IV Push, administer over 3-5 minutes. 2056 (Given - Provider: Antonella López RN) ondansetron (Zofran) injection 4 mg (COMPLETED) 4 mg, intravenous, Once, On Bisi 07/12/24 at 0045, For 1 dose, When administering via IV Push, administer over 3-5 minutes. 010 (Given - Provid er: Antonella López RN) piperacillin-tazobactam (Zosyn) 3.375 g in dextrose (iso) IV 50 mL (COMPLETED) 3.375 g, intravenous, Administer over 0.5 Hours, Once, On Tue07/11/24 at 2330, For 1 dose, premix bag, Dosing of this medication varies based on severity of illness. Does this patient have sepsis or concern for sepsis (probable or documented infection plus systemic manifestations of infection)? No, Suspected Indication (Select all that apply): Abdominal Infection, Type of Therapy: Empiric, Type of infection: Healthcare-Associated, Indications: Abdominal Infection 2336 (New Bag - Provider: Antonella López RN) 0007 (Stopped - Provider: Antonella López RN) sodium chloride 0.9 % bolus 1,000 mL (COMPLETED) 1,000 mL, intravenous, at 999 mL/hr, Administer over 1 Hours, Once, On Tue07/11/24 at 2054, For 1 dose 2056 (New Bag - Provider: Antonella López RN)2150 (Stopped - Provider: Antonella López RN) FOR RECORDS PERTAINING TO PATIENTS WHO ARE [...] BE BASED ON THE PRIMARY CLINICAL RECORDS. [facility] [employer] [facility]. provides no warranty or guarantee of the accuracy or completeness of information in this document.
== END | disposition home or self-care (01) ==
LOC: LABSPEC 15:36
PROVIDERS: Referring Provider Surgery; Visit Provider Surgery
DX: N60.31 Fibrosclerosis of right breast (principal)
CPT/HCPCS: 88305

== ENCOUNTER → 2024-12-18 | Outpatient (CLI) | payer OTHER, SELFPAY ==
--- OUTSIDE RECORDS SUMMARY | 2024-07-12 06:56 | XMS RPT_ITS ---
Author Name Auto Generated Organization [facility] Care Team Providers Care Director Home Health Name Role Phone JOSE KLINE Primary Care Unavailable ELEONORA TATE Attending Unavailable PATRICIA HYATT Referring Unavaila JOSE Toscano Primary Care Unavailable JOSE KLINE Primary Care Unavailable MICHAEL FLEMING Attending Unavailable PATRICIA HYATT Referring Unavaila JOSE Toscano Primary Care Unavailable PROBLEMS DATE TYPE CONDITION / CODE ATTENDING STATUS [facility] 07/11/2024 Admitting Diagnosis Right upper quadrant pain / R10.11(ICD-10) MICHAEL FLEMING Active [facility] 06/12/2024 Admitting Diagnosis Other chest pain / R07.89(ICD-10) ELEONORA TATE Active [facility] 06/12/2024 Admitting Diagnosis Hypokalemia / E87.6(ICD-10) ELEONORA TATE Active [facility] PROCEDURES No Procedure Records Found RESULTS LACTATE Collected: 10:26 PM Status: F Source: [facility] Order Comment: Venipuncture immediately after or during the administration of Metamizole may lead to falsely low results. Testing should be performed immediately prior to Metamizole dosing. TYPE CODE TESTS RESULT OUT OF RANGE REFERENCE UNITS LAB 2524-7(LOINC) Lactate 1.1 0.4-2.0 mmol/L Performed By: #### 2524-7 ## ## REYNA HATHAWAY ([id number]) [facility] ([facility]) [address] [place], [place] [id number] URINALYSIS COMPLETE W REFLEX CULTURE PANEL Collected: 07/11/2024 10:15 PM Status: F Source: [facility] TYPE CODE TESTS RESULT OUT OF RANGE REFERENCE UNITS LAB 01217-6(LOINC) Leukocytes 1-5 1-5, NONE /HPF LAB 81584-9(LOINC) Erythrocytes NONE NO NE, 1-2, 3-5 /HPF LAB 25367-0(LOINC) Epithelial cells.squamous 1-9 (SPARSE) Reference range not established. /HPF LAB 16378-0(LOINC) Mucus FEW Refer ence range not established. /LPF Performed By: #### 78115-1 # ### REYNA HATHAWAY ([id number]) [facility] ([facility]) [address] [place], [place] [id number] URINALYSIS COMPLETE W REFLEX CULTURE PANEL Collected: 07/11/2024 10:15 PM Status: F Source: [facility] TYPE CODE TESTS RESULT OUT OF RANGE REFERENCE UNITS LAB 5778-6(LOINC) Color Colorless Normal Light- Yellow , Yellow, Dark-Yellow LAB 5767-9(LOINC) Appearance Clear Clear LAB 27938-1(LOINC) Specific gravity 1.013 1.005-1.035 LAB 71915-5(LOINC) pH 6.5 5.0, 5.5, 6.0, 6.5, 7.0, 7.5, 8.0 LAB 32856-2(LOINC) Protein NEGATIVE NEGAT ASHISH, 10 (TRACE), 20 (TRACE) mg/dL LAB 92006-8(LOINC) Glucose Normal Normal mg/dL LAB 84229-4(LOINC) Erythrocytes 0.1 (1+) Abnormal NEGATIVE m g/dL LAB 81977-9(LOINC) Ketones NEGATIVE NEGATIVE mg/dL LAB 60217-7(LOINC) Bilirubin NEGATIVE NEGATIVE mg/dL LAB 48498-6(LOINC) Urobilinogen Normal Normal mg/d L LAB 83353-4(LOINC) Nitrite NEGATIVE NEGATIVE LAB 50758-3(LOINC) Leukocyte esterase NEGATIVE NEGATIVE Performed By: #### 63043-9 # ### ORELLANA RIVAS ([id number]) [facility] ([facility]) [address] [id number] COMPLETE BLOOD COUNT W AUTO DIFFERENTIAL PANEL Collected: 07/11/2024 8:52 PM Status: F Source: [facility] TYPE CODE TESTS RESULT OUT OF RANGE REFERENCE UNITS LAB 6690-2(LOINC) Leukocytes 10.6 4.4-11.3 x10*3/ uL LAB 95202-2(LOINC ) Erythrocytes.nuc leated/100 leukocytes 0.0 0.0-0.0 /100 WBCs LAB 789-8(LOINC) Erythrocytes 4.06 4.00-5.20 x10* 6/uL LAB 718-7(LOINC) Hemoglobin 12.7 12.0-16.0 g/dL LAB 4544-3(LOINC) Hematocrit 38.8 36.0-46.0 % LAB 787-2(LOINC) Erythrocyte mean corpuscular volume 96 80-100 fL LAB 785-6(LOINC) Erythrocyte mean corpuscular hemoglobin 31.3 26.0-34.0 pg LAB 786-4(LOINC) Erythrocyte mean corpuscular hemoglobin concentration 32.7 32.0-36.0 g/dL LAB 788-0(LOINC) Erythrocyte distribution width 12.7 11.5-14.5 % LAB 777-3(LOINC) Platelets 308 150-450 x10*3/uL LAB 770-8(LOINC) Neutrophils/100 leukocytes 44.4 40.0-80.0 % LAB 08184-8(LOINC ) Granulocytes.imm ature/100 leukocytes 0.3 0.0-0.9 % Result Comment: Immature Gra nulocyte Count (IG) includes promyelocytes, myelocytes and metamyelocytes but does not include bands. Percent differential counts (%) should be interpreted in the context of the absolute cell counts (cells/UL). LAB 736-9(LOINC) Lymphocytes/100 leukocytes 43.8 13.0-44.0 % LAB 5905-5(LOINC) Monocytes/100 leukocytes 7.5 2.0-10.0 % LAB 713-8(LOINC) Eosinophils/100 leukocytes 3.1 0.0-6.0 % LAB 706-2(LOINC) Basophils/100 leukocytes 0.9 0.0-2.0 % LAB 751-8(LOINC) Neutrophils 4.69 1.20-7.70 x10*3 /uL Result Comment: Percent diff erential counts (%) should be interpreted in the context of the absolute cell counts (cells/uL). LAB 58770-0(LOINC ) Granulocytes.imm ature 0.03 0.00-0.70 x10*3/uL LAB 731-0(LOINC) Lymphocytes 4.62 1.20-4.80 x10*3 /uL LAB 742-7(LOINC) Monocytes 0.79 0.10-1.00 x10*3/u L LAB 711-2(LOINC) Eosinophils 0.33 0.00-0.70 x10*3 /uL LAB 704-7(LOINC) Basophils 0.09 0.00-0.10 x10*3/u L Performed By: #### 09133-6 # ### REYNA HATHAWAY ([id number]) [facility] ([facility]) [address] [place] [address] LACTATE Collected: 8:52 PM Status: F Source: [facility] Order Comment: Venipuncture immediately after or during the administration of Metamizole may lead to falsely low results. Testing should be performed immediately prior to Metamizole dosing. TYPE CODE TESTS RESULT OUT OF RANGE REFERENCE UNITS LAB 2524-7(LOINC) Lactate 3.2 High 0.4-2.0 mmol/L Performed By: #### 2524-7 ## ## REYNA HATHAWAY ([id number]) [facility] ([facility]) [address] [place] [address] COMPREHENSIVE METABOLIC 2000 PANEL Collected: 07/11/2024 8:52 PM Status: F Source: [facility] TYPE CODE TESTS RESULT OUT OF RANGE REFERENCE UNITS LAB 2345-7(LOINC) Glucose 118 High 74-99 mg/dL LAB 2951-2(LOINC) Sodium 136 136-145 mmol/L LAB 2823-3(LOINC) Potassium 3.6 3.5-5.3 mmol/L LAB 2075-0(LOINC) Chloride 104 98-107 mmol/L LAB 2028-9(LOINC) Carbon dioxide 17 Low 21-32 mmo l/L LAB 11462-6(LOINC ) Anion gap 19 10-20 mmol/L LAB 3094-0(LOINC) Urea nitrogen 11 6-23 mg/d L LAB 2160-0(LOINC) Creatinine 0.70 0.50-1.05 mg/dL LAB 38350-6(LOINC ) Glomerular filtration rate/1.73 sq M.predicted >90 >60 mL/min/ 1.73m*2 Result Comment: Calculations of estimated GFR are performed using the 2020 CKD- EPI Study Refit equation without the race variable for the IDMS-Traceable creatinine methods. https://jasn.asnjournals.org/content//ASN.7675070698 LAB 61470-3(LOINC ) Calcium 8.9 8.6-10.3 mg/dL LAB 89176-4(LOINC ) Albumin 4.4 3.4-5.0 g/dL LAB 6768-6(LOINC) Alkaline phosphatase 59 33-110 U/L LAB 2885-2(LOINC) Protein 7.3 6.4-8.2 g/dL LAB 41998-8(LOINC ) Aspartate aminotransferase 19 9-39 U/L LAB 1975-2(LOINC) Bilirubin 0.4 0.0-1.2 mg/dL LAB 1743-4(LOINC) Alanine aminotransferase 31 7-45 U/L Result Comment: Patients natalya ated with Sulfasalazine may generate falsely decreased results for ALT. Performed By: #### 47502-7 # ### ORELLANA RIVAS ([id number]) [facility] ([facility]) [address] [place] [address] TRIACYLGLYCEROL LIPASE Collected: 07/11/2024 8:52 PM Status: F Source: [facility] Order Comment: Venipuncture immediately after or during the administration of Metamizole may lead to falsely low results. Testing should be performed immediately prior to Metamizole dosing. TYPE CODE TESTS RESULT OUT OF RANGE REFERENCE UNITS LAB 3040-3([facility]) Triacylglycerol lipase 21 9-82 U/L Performed By: #### 3040-3 ## ## ORELLANA RIVAS ([id number]) [facility] ([facility]) [address] [place] [address] CT ABDOMEN PELVIS W IV CONTRAST Observed: 07/11/2024 8:52 PM Status: F Source: [facility] Interpreted By: Santino Millan, STUDY: CT ABDOMEN PELVIS W IV CONTRAST; ; 07/11/2024 9:58 pm INDICATION: Signs/Symptoms:RUQ pain, recent cholecystectomy. COMPARISON: None. ACCESSION NUMBER(S): [id number] ORDERING CLINICIAN: PATRICIA HYATT TECHNIQUE: Axial CT images of the abdomen and pelvis with coronal and sagittal reconstructed images performed after intravenous administration of 70 cc Omnipaque 350. FINDINGS: LOWER CHEST: No acute abnormality of the lung bases. Normal heart size. BONES: No acute osseous abnormality. ABDOMINAL WALL: Patchy subcutaneous fat stranding in the ventral abdominal wall most likely relating to sites of laparoscopic port placement. No subcutaneous air, fluid collection, or foreign body. Small fat containing umbilical hernia. ABDOMEN: LIVER: Enlarged. No focal lesion. BILE DUCTS: Normal caliber. GALLBLADDER: Absent. There is a heterogeneous fluid collection in the gallbladder fossa measuring up to 2.2 x 2.1 cm in transaxial diameters, 3.2 cm in CC diameter (series 2, images 45-60), possibly representing hematoma/seroma, biloma, or abscess. PANCREAS: Within normal limits. SPLEEN: Within normal limits. ADRENALS: Within normal limits. KIDNEYS and URETERS: Within normal limits. VESSELS: Within normal limits. Incidentally noted circumaortic left renal vein, anatomic variation. RETROPERITONEUM: No pathologically enlarged retroperitoneal lymph nodes. PELVIS: REPRODUCTIVE ORGANS: Uterus and adnexae appear within normal limits. BLADDER: Within normal limits. BOWEL: No dilated or thickened bowel. Stomach appears within normal limits. Moderate volume of colonic stool. Normal appendix. PERITONEUM: No ascites or free air, no fluid collection. IMPRESSION: There is a heterogeneous fluid collection in the gallbladder fossa measuring up to 2.2 x 2.1 cm in transaxial diameters, 3.2 cm in CC diameter (series 2, images 45-60), possibly representing hematoma/seroma, biloma, or abscess. Otherwise, no evidence of acute pathology. Hepatomegaly. Additional findings as discussed above. MACRO: None Signed by: Jono Millan 07/11/2024 10:30 PM Dictation workstation: [id number] ECG 12-LEAD Observed: 07/11/2024 8:28 PM Status: F Source: [facility] Ventricular Rate 98 Atrial Rate 98 P-R Interval 140 QRS Duration 74 Q-T Interval 366 QTC Calculation(Bazett) 467 P [place] 73 R [place] 78 T [place] 70 QRS Count 16 Q Onset 220 P Onset 150 P Offset 198 T Offset 403 QTC Fredericia 431 Diagnosis Normal sinus rhythm Possible Left atrial enlargement Borderline ECG When compared with ECG of 12-JUN-2024 16:44, No significant change was found See ED provider note for full interpretation and clinical correlation Confirmed by Patricia Jimenez ([id number]) on 07/12/2024 9:42:18 PM URINALYSIS COMPLETE W REFLEX CULTURE PANEL Collected: 06/12/2024 7:24 PM Status: F Source: [facility] TYPE CODE TESTS RESULT OUT OF RANGE REFERENCE UNITS LAB 22959-8(LOINC) Leukocytes NONE 1-5, NONE /HPF LAB 53599-0(LOINC) Erythrocytes 3-5 NO NE, 1-2, 3-5 /HPF LAB 80705-6(LOINC) Epithelial cells.squamous NONE Reference range not established. /HPF LAB 42247-6(LOINC) Bacteria 1+ Abnormal NONE SEEN /HPF Performed By: #### 46393-3 # ### REYNA HATHAWAY ([id number]) [facility] ([facility]) [address] [place] [address] URINALYSIS COMPLETE W REFLEX CULTURE PANEL Collected: 06/12/2024 7:24 PM Status: F Source: [facility] TYPE CODE TESTS RESULT OUT OF RANGE REFERENCE UNITS LAB 5778-6(LOINC) Color Colorless Normal Light- Yellow , Yellow, Dark-Yellow LAB 5767-9(LOINC) Appearance Clear Clear LAB 49815-7(LOINC) Specific gravity 1.006 1.005-1.035 LAB 05207-0(LOINC) pH 7.0 5.0, 5.5, 6.0, 6.5, 7.0, 7.5, 8.0 LAB 41869-8(LOINC) Protein NEGATIVE NEGAT ASHISH, 10 (TRACE), 20 (TRACE) mg/dL LAB 95963-0(LOINC) Glucose Normal Normal mg/dL LAB 72417-0(LOINC) Erythrocytes 0.2 (2+) Abnormal NEGATIVE m g/dL LAB 87920-8(LOINC) Ketones 10 (1+) Abnormal NEGATIVE mg/dL LAB 33078-3(LOINC) Bilirubin NEGATIVE NEGATIVE mg/dL LAB 70426-5(LOINC) Urobilinogen Normal Normal mg/d L LAB 89056-8(LOINC) Nitrite NEGATIVE NEGATIVE LAB 19117-7(LOINC) Leukocyte esterase NEGATIVE NEGATIVE Performed By: #### 23012-6 # ### REYNA HATHAWAY ([id number]) [facility] ([facility]) [facility] [place] [address] CHORIOGONADOTROPIN (PREGNANC Y TEST) Collected: 06/12/2024 7:24 PM Status: F Source: [facility] TYPE CODE TESTS RESULT OUT OF RANGE REFERENCE UNITS LAB 19583-3(LOIN C) Choriogonadotropin ( test) NEGATIVE NEGATIVE Performed By: #### 32686-5 # ### REYNA HATHAWAY ([id number]) [facility] ([facility]) [address] [place] [address] TROPONIN I.CARDIAC PANEL Collected: 6:44 PM Status: F Source: [facility] Order Comment: Less than 99t h percentile of normal range cutoff- Female and children under 18 years old <14 ng/L; Male <21 ng/L: Negative Repeat testing should be performed if clinically indicated. Female and children under 18 years old 14-50 ng/L; Male 21-50 ng/L: Consistent with possible cardiac damage and possible increased clinical risk. Serial measurements may help to assess extent of myocardial damage. >50 ng/L: Consistent with cardiac damage, increased clinical risk and myocardial infarction. Serial measurements may help assess extent of myocardial damage. NOTE: Children less than 1 year old may have higher baseline troponin levels and results should be interpreted in conjunction with the overall clinical context. NOTE: Troponin I testing is performed using a different testing methodology at [facility] than at other [facility]. Direct result comparisons should only be made within the same method. TYPE CODE TESTS RESULT OUT OF RANGE REFERENCE UNITS LAB 71442-0(LOINC) Troponin I.cardiac panel <3 0-13 ng/L Performed By: #### 67316-1 # ### ORELLANA RIVAS ([id number]) [facility] ([facility]) [address] [place] [address] COMPLETE BLOOD COUNT W AUTO DIFFERENTIAL PANEL Collected: 06/12/2024 5:59 PM Status: F Source: [facility] TYPE CODE TESTS RESULT OUT OF RANGE REFERENCE UNITS LAB 6690-2(LOINC) Leukocytes 7.8 4.4-11.3 x10*3/ uL LAB 68467-9(LOINC ) Erythrocytes.nuc leated/100 leukocytes 0.0 0.0-0.0 /100 WBCs LAB 789-8(LOINC) Erythrocytes 4.09 4.00-5.20 x10* 6/uL LAB 718-7(LOINC) Hemoglobin 12.7 12.0-16.0 g/dL LAB 4544-3(LOINC) Hematocrit 39.4 36.0-46.0 % LAB 787-2(LOINC) Erythrocyte mean corpuscular volume 96 80-100 fL LAB 785-6(LOINC) Erythrocyte mean corpuscular hemoglobin 31.1 26.0-34.0 pg LAB 786-4(LOINC) Erythrocyte mean corpuscular hemoglobin concentration 32.2 32.0-36.0 g/dL LAB 788-0(LOINC) Erythrocyte distribution width 13.1 11.5-14.5 % LAB 777-3(LOINC) Platelets 300 150-450 x10*3/uL LAB 770-8(LOINC) Neutrophils/100 leukocytes 57.4 40.0-80.0 % LAB 72514-4(LOINC ) Granulocytes.imm ature/100 leukocytes 0.3 0.0-0.9 % Result Comment: Immature Gra nulocyte Count (IG) includes promyelocytes, myelocytes and metamyelocytes but does not include bands. Percent differential counts (%) should be interpreted in the context of the absolute cell counts (cells/UL). LAB 736-9(LOINC) Lymphocytes/100 leukocytes 31.5 13.0-44.0 % LAB 5905-5(LOINC) Monocytes/100 leukocytes 7.5 2.0-10.0 % LAB 713-8(LOINC) Eosinophils/100 leukocytes 2.3 0.0-6.0 % LAB 706-2(LOINC) Basophils/100 leukocytes 1.0 0.0-2.0 % LAB 751-8(LOINC) Neutrophils 4.50 1.20-7.70 x10*3 /uL Result Comment: Percent diff erential counts (%) should be interpreted in the context of the absolute cell counts (cells/uL). LAB 05575-7(LOINC ) Granulocytes.imm ature 0.02 0.00-0.70 x10*3/uL LAB 731-0(LOINC) Lymphocytes 2.47 1.20-4.80 x10*3 /uL LAB 742-7(LOINC) Monocytes 0.59 0.10-1.00 x10*3/u L LAB 711-2(LOINC) Eosinophils 0.18 0.00-0.70 x10*3 /uL LAB 704-7(LOINC) Basophils 0.08 0.00-0.10 x10*3/u L Performed By: #### 28392-9 # ### ORELLANA RIVAS ([id number]) [facility] ([facility]) [address] [place] [address] FIBRIN D-DIMER FEU Collected: 5 5:59 PM Status: F Source: [facility] Order Comment: The VTE Exclu wilder D-Dimer assay is reported in ng/mL Fibrinogen Equivalent Units (FEU). Per nurse practitioner manager's instructions for use, a value of less than 500 ng/mL (FEU) may help to exclude DVT or PE in outpatients when the assay is used with a clinical pretest probability assessment.(AEMR must utilize and document eCalc 'Wells Score Deep Vein Thrombosis Risk' for DVT exclusion only. Emergency Department should utilize Guidelines for Emergency Department Use of the VTE Exclusion D-Dimer and Clinical Pretest probability assessment model for DVT or PE exclusion.) TYPE CODE TESTS RESULT OUT OF RANGE REFERENCE UNITS LAB 59347-2(LOINC) Fibrin D-dimer FEU 361 <=500 ng/mL FEU Performed By: #### 89823-4 # ### ORELLANA IRVAS ([id number]) [facility] ([facility]) [address] [place] [address] MAGNESIUM Collected: 5:59 PM Status: F Source: [facility] TYPE CODE TESTS RESULT OUT OF RANGE REFERENCE UNITS LAB 03702-4(LOINC) Magnesium 2.04 1.60-2.40 mg/dL Performed By: #### 72415-7 # ### ORELLANA RIVAS ([id number]) [facility] ([facility]) [facility] [place] [address] COMPREHENSIVE METABOLIC 2000 PANEL Collected: 06/12/2024 5:59 PM Status: F Source: [facility] TYPE CODE TESTS RESULT OUT OF RANGE REFERENCE UNITS LAB 2345-7(LOINC) Glucose 103 High 74-99 mg/dL LAB 2951-2(LOINC) Sodium 138 136-145 mmol/L LAB 2823-3(LOINC) Potassium 3.3 Low 3.5-5.3 mmol/L LAB 2075-0(LOINC) Chloride 106 98-107 mmol/L LAB 8-9(LOINC) Carbon dioxide 20 Low 21-32 mmo l/L LAB 72671-2(LOINC ) Anion gap 15 10-20 mmol/L LAB 3094-0(LOINC) Urea nitrogen 12 6-23 mg/d L LAB 2160-0(LOINC) Creatinine 0.93 0.50-1.05 mg/dL LAB 25060-6(LOINC ) Glomerular filtration rate/1.73 sq M.predicted 81 >60 mL/min/ 1.73m*2 Result Comment: Calculations of estimated GFR are performed using the 2020 CKD- EPI Study Refit equation without the race variable for the IDMS-Traceable creatinine methods. https://jasn.asnjournals.org/content/early//ASN.7411108171 LAB 23182-7(LOINC ) Calcium 9.1 8.6-10.3 mg/dL LAB 95324-9(LOINC ) Albumin 4.5 3.4-5.0 g/dL LAB 6768-6(LOINC) Alkaline phosphatase 51 33-110 U/L LAB 2885-2(LOINC) Protein 7.3 6.4-8.2 g/dL LAB 10216-5(LOINC ) Aspartate aminotransferase 15 9-39 U/L LAB 1975-2(LOINC) Bilirubin 0.4 0.0-1.2 mg/dL LAB 1743-4(LOINC) Alanine aminotransferase 15 7-45 U/L Result Comment: Patients natalya ated with Sulfasalazine may generate falsely decreased results for ALT. Performed By: #### 88254-4 # ### REYNA HATHAWAY ([id number]) [facility] ([facility]) [address] [place] [address] TROPONIN I.CARDIAC PANEL Collected: 5:59 PM Status: F Source: [facility] Order Comment: Less than 99t h percentile of normal range cutoff- Female and children under 18 years old <14 ng/L; Male <21 ng/L: Negative Repeat testing should be performed if clinically indicated. Female and children under 18 years old 14-50 ng/L; Male 21-50 ng/L: Consistent with possible cardiac damage and possible increased clinical risk. Serial measurements may help to assess extent of myocardial damage. >50 ng/L: Consistent with cardiac damage, increased clinical risk and myocardial infarction. Serial measurements may help assess extent of myocardial damage. NOTE: Children less than 1 year old may have higher baseline troponin levels and results should be interpreted in conjunction with the overall clinical context. NOTE: Troponin I testing is performed using a different testing methodology at [facility] than at other [facility]. Direct result comparisons should only be made within the same method. TYPE CODE TESTS RESULT OUT OF RANGE REFERENCE UNITS LAB 79684-6([facility]) Troponin I.cardiac panel <3 0-13 ng/L Performed By: #### 82054-2 # ### REYNA HATHAWAY ([id number]) [facility] ([facility]) [address] [place], [place] [id number] TSH WITH REFLEX TO FREE T4 I F ABNORMAL Collected: 06/12/2024 5:59 PM Status: F Source: [facility] Order Comment: TSH testing i s performed using different testing methodology at [facility] than at other system hospitals. Direct result comparisons should only be made within the same method. TYPE CODE TESTS RESULT OUT OF RANGE REFERENCE UNITS LAB 3016-3(LOINC) Thyrotropin 1.99 0.44-3.98 mIU/ L Performed By: #### THYDS ### # REYNA HATHAWAY ([id number]) [facility] ([facility]) [address] [place] [address] INFLUENZA VIRUS A Collected: 5:20 PM Status: F Source: [facility] Order Comment: This assay is an FDA-cleared, in vitro diagnostic nucleic acid amplification test for the qualitative detection and differentiation of SARS CoV-2/ Influenza A/B/ RSV from nasopharyngeal specimens collected from individuals with signs and symptoms of respiratory tract infections, and has been validated for use at [facility]. Negative results do not preclude COVID-19/ Influenza A/B/ RSV infections and should not be used as the sole basis for diagnosis, treatment, or other management decisions. Testing for SARS CoV-2 is recommended only for patients who meet current clinical and/or epidemiological criteria defined by federal, state, or local public health directives. TYPE CODE TESTS RESULT OUT OF RANGE REFERENCE UNITS LAB 76172-3(LOINC ) SARS coronavirus 2 RNA NOT DETECTED Not Detected LAB 99656-9(LOINC ) Influenza virus A RNA Not Detected Not Detected LAB 50897-2(LOINC ) Influenza virus B RNA Not Detected Not Detected LAB 79343-8(LOINC ) Respiratory syncytial virus RNA Not Detected Not Detected Performed By: #### 09921-8 # ### REYNA HATHAWAY ([id number]) [facility] ([facility]) [address] [place], [place] [id number] XR CHEST 2 VIEWS Observed: 06/12/2024 5:02 PM Status: F Source: [facility] STUDY: Chest Radiographs; 06/12/2024 06:23PM INDICATION: Chest pain. COMPARISON: XR Chest 09/27/2021 ACCESSION NUMBER(S): [id number] ORDERING CLINICIAN: PATRICIA HYATT TECHNIQUE: Frontal and lateral chest. FINDINGS: Lungs are clear. No pleural effusion. No pneumothorax. Heart size normal. Mild thoracic dextroscoliotic curvature. No acute bony abnormality identified. IMPRESSION: Impression: No findings of an acute cardiopulmonary process. Signed by Juan Antonio Nice MD ECG 12-LEAD Observed: 06/12/2024 4:44 PM Status: F Source: [facility] Ventricular Rate 89 Atrial Rate 89 P-R Interval 154 QRS Duration 78 Q-T Interval 378 QTC Calculation(Bazett) 459 P [place] 53 R [place] 54 T [place] 46 QRS Count 14 Q Onset 218 P Onset 141 P Offset 199 T Offset 407 QTC Fredericia 430 Diagnosis Normal sinus rhythm Normal ECG When compared with ECG of 27-SEP-2021 07:12, Previous ECG has undetermined rhythm, needs review ST no longer elevated in Inferior leads See ED provider note for full interpretation and clinical correlation Confirmed by Patricia Hyatt ([id number]) on 06/13/2024 11:48:35 AM ALLERGIES DATE TYPE / CODE NAME / CODE REACTION SEVERITY SOURCE 07/26/2022 DRUG INGREDI~Food/546449 000(SNOMED CT) GLUTEN Unknown [facility] ENCOUNTERS ADMIT/DISCHARGE ACCOUNT NUMBER ADMITTING ENCOUNTER CLASS LOCATION SOURCE 07/12/2024/ 5 [id number] Emergency Building:[address] 07/11/2024/ 5 [id number] Emergency Building:[facility] EDRoom: [id number] : [address] 06/13/2024/ 5 [id number] Ambulatory Building:[address] 06/12/2024/ 5 [id number] Emergency Building:[facility] EDRoom: [id number] : 02 [facility] PAYERS ENCOUNTER GUARANTOR PAYER SUBSCRIBER SOURCE 07/12/2024 [place] FARIASDOB: [address] [address]Hjb: () Primary Insurance:[facility] Daniel Vosovic [facility]hoenix[facility] Number: [id number] Date:2022-10-19 [place] VALLEB: [id number] [address] [address]Dpp: () [facility] 07/11/2024 DALLAS GONZALEZERDOB: [address] [address]Rmc: () [facility] Number: [id number] Date:2022-10-19 DALLAS GONZALEZERDOB: [id number] [address]Nrf: () [facility] 06/13/2024 DALLAS GONZALEZERDOB: [address] [address]Wfe: () [facility] Number: [id number] Date:2022-10-19 DALLAS GONZALEZERDOB: [id number] [address] [address]Ijt: () [facility] 06/12/2024 DALLAS GONZALEZERDOB: [address] [address]Esp: () Primary Insurance:[facility] Number: [id number] Date:2022-10-19 DALLAS GONZALEZERDOB: [id number] [address] [address]Glg: () [facility]
[2024-12-18 13:33] LABS: Hematocrit 37.9 % (37-47); Hemoglobin 12.9 g/dL (12.0-15.0); Immature Granulocytes Count 0.030 X10^3/uL (0.0-0.0); Mean Corp Hgb Conc 34.0 g/dL (32-36); Mean Corpuscular Volume 95.2 fL (81-99); Mean Platelet Vol. 11.6 fl (6.2-12.0); NRBC Flagged by Analyzer 0 % (0-5); Platelet Count 275 K/mm3 (150-450); RBC Distribution Width CV 13.1 % (11.6-14.6); RBC Distribution Width SD 46.4 fl (35.1-43.9); Red Blood Count 3.98 M/mm3 (4.2-5.4); White Blood Count 11.9 K/mm3 (4.4-11.0)
[2024-12-18 14:06] LABS: AST(SGOT) 21 U/L (<=31); Alanine Aminotransfer ALT/SGPT 22 U/L (<=34); Albumin, Serum 4.3 g/dL (3.5-5.0); Alkaline Phosphatase 69 U/L (35-104); Anion Gap 11 (5-15); BUN 11 mg/dL (4-19); BUN/Creat Ratio 14.2 RATIO (10-20); Calcium,Total 8.8 mg/dL (7.6-11.0); Carbon Dioxide 23.5 mmol/L (21.0-32.0); Chloride 103 mmol/L (98-108); Globulin 3.1 g/dL (2.2-4.2); Glucose 106 mg/dL (70-99); Potassium 3.8 mmol/L (3.3-5.1)
== END | disposition home or self-care (01) ==
PROVIDERS: Referring Provider Internal Medicine Rheumatology; Visit Provider Internal Medicine Rheumatology
DX: M06.4 Inflammatory polyarthropathy (principal); R76.8 Other specified abnormal immunological findings in serum; Z79.899 Other long term (current) drug therapy
CPT/HCPCS: 36415; 80053; 85025

== ENCOUNTER → 2025-02-11 | Outpatient (CLI) | payer OTHER, SELFPAY ==
[2025-02-13 04:07] LABS: PROLACTIN 22.9 ng/mL (4.8-33.4)
== END | disposition home or self-care (01) ==
PROVIDERS: PCP Internal Medicine; Referring Provider Nurse Practitioner Family; Visit Provider Nurse Practitioner Family
DX: Z86.018 Personal history of other benign neoplasm (principal)
CPT/HCPCS: 36415; 84146

== ENCOUNTER → 2025-02-25 | Outpatient (CLI) | payer OTHER, SELFPAY ==
--- NOTE | 2025-02-25 06:57 | MRI_ITS ---
PROCEDURE: BRAIN W/WO CONTRAST 02/25/2025 REASON FOR EXAM: PROLACTINOMA TECHNIQUE: Procedure Code: MRIBRWW Modality: MR Procedure: BRAIN W/WO CONTRAST Multiplanar and multisequence images were obtained. CONTRAST: Clariscan VOLUME: 15 mL COMPARISON: MRI brain with and without contrast, 03/04/2023 FINDINGS: There is a 4.9 mm hypoenhancing area in the left side of the anterior pituitary suggestive of an adenoma. There is no evidence of extension into the cavernous sinus or suprasellar cistern. There is no deviation of the pituitary infundibulum. There were no dynamic postcontrast sequences performed. There is a normal sulcal pattern and gyral configuration. There is no evidence of acute intracranial hemorrhage or infarction. The ray-white differentiation is well preserved. There is no evidence of restricted diffusion. The ventricles and basilar cisterns are normal. There are normal flow voids demonstrated in the recognized intracranial vessels. The cerebellum and brainstem are unremarkable. The cerebellar pontine angles are normal. The craniovertebral junction is normal. The suprasellar region is normal. The orbits and retro-orbital regions are unremarkable. There is right bella bullosa with nasal septal deviation to the left. There is a left-sided nasal spur extending into the middle meatus. There is a mucous retention cyst in the floor of the right maxillary sinus. Paranasal sinuses are otherwise clear. The mastoid air cells are clear. There is normal bone marrow signal in the skull base and calvarium. MRI/Brain W/WO Contrast IMPRESSION: 1. There is a 4.9 mm in diameter area of hypoenhancement in the left side of t he pituitary suggestive of an adenoma. 2. MR imaging of the brain with and without contrast is otherwise unremarkable . 3. Other findings as noted. Reading Location: [place] [id number]
== END | disposition home or self-care (01) ==
LOC: OPMRI 06:57
PROVIDERS: PCP Internal Medicine; Referring Provider Nurse Practitioner Family; Visit Provider Nurse Practitioner Family
DX: Z86.018 Personal history of other benign neoplasm (principal)
CPT/HCPCS: 70553; A9575